=== PATIENT | female | born 1945 | race Caucasian/White ===

== ENCOUNTER 2020-05-21 14:30 | Inpatient (IN) | payer MEDICARE, SELFPAY ==
[2020-05-21] VITALS (8 sets, daily range): BP systolic 108–179; BP diastolic 66–95; PULSE 77–89; RESP 14–22; TEMP 36.9–37.1; O2SAT 93–97; BMI 21.6
--- NOTE | 2020-05-21 | CT_ITS ---
EXAMINATION: CT ABDOMEN AND PELVIS WITHOUT CONTRAST CLINICAL INFORMATION: Abdominal pain with history of recent small bowel obstruction. COMPARISON: CT abdomen and pelvis 05/06/2020. TECHNIQUE: Multidetector volumetric imaging was performed from the superior aspect of the liver through the pubic symphysis. Sagittal and coronal reformatted images were obtained on the technologist's workstation. This CT examination was performed using dose optimization techniques as appropriate, variously including the following: *Automated exposure control. *Adjustment of mA and/or kV according to patient size (this includes techniques or standardized protocols for targeted exams where dose is matched to indication/reason for exam; i.e. extremities or head). *Use of iterative reconstruction technique. DLP: 376 mGy-cm FINDINGS: LUNG BASES: Again seen are changes of emphysema at the lung bases. Extensive coronary calcifications are present. LIVER, GALLBLADDER, AND BILIARY TREE: The liver is normal in size, shape, and attenuation. No focal hepatic lesion or biliary ductal dilatation is present. The gallbladder is surgically absent. PANCREAS: Unremarkable. SPLEEN: Unremarkable. ADRENAL GLANDS: Again noted is a 2.0 x 1.7 cm left adrenal nodule, unchanged. KIDNEYS AND URETERS: Again seen are grossly abnormal kidneys with multiple renal cysts which appear to replace the renal parenchyma. Some hyperattenuating cysts are present at the lower poles of the kidneys. Some are complicated with calcifications. Appearances are unchanged when compared to the prior study. No hydronephrosis. BLADDER: Again seen is the right-sided bladder mass which now measures 2.0 cm (previously 1.8 cm). GASTROINTESTINAL TRACT: Patient is status post right hemicolectomy. An additional small bowel to small bowel suture line is noted in the right lower quadrant. The small and large bowel are otherwise unremarkable. There is no evidence of bowel obstruction. ABDOMINAL WALL: No significant hernia is appreciated. LYMPH NODES: No retroperitoneal lymphadenopathy. VASCULAR: Extensive calcific atherosclerotic change is present in the aorta/iliofemoral vessels with mild ectasia of the infrarenal aorta with maximal dimension of 2.3 cm. PELVIC VISCERA: Status post hysterectomy. An abnormal adnexal mass or free intraperitoneal fluid is not seen. OSSEOUS STRUCTURES: Marked degenerative changes in the lumbosacral spine from L3 through S1. No bony destructive lesions seen. IMPRESSION: 1. No evidence of small bowel obstruction. 2. No interval change in left adrenal gland mass. 3. Right-sided bladder mass appears slightly larger but this may be due to technique. 4. Innumerable renal cysts, some complicated-unchanged. 5. Other incidental findings as described above.
--- NOTE | 2020-05-21 | ECG_ITS ---
Test Reason : VOMITTING Blood Pressure : / mmHG Vent. Rate : 086 BPM Atrial Rate : 086 BPM P-R Int : 146 ms QRS Dur : 090 ms QT Int : 414 ms P-R-T Axes : 028 -02 025 degrees QTc Int : 495 ms Normal sinus rhythm Prolonged QT Abnormal ECG When compared with ECG of 05-MAY-2020 22:53, Premature atrial complexes are no longer Present Heart rate has decreased Referred By: Maribell Greer Electronically Signed By:ROGERS ELAM
--- NOTE | 2020-05-21 15:04 | ED_ITS ---
HPI - Abdominal Pain General Chief Complaint: Abdominal Pain <LORENZA Warren - Last Filed: 05/21/20 20:29> Stated Complaint: ABD PAIN <LORENZA Warren - Last Filed: 05/21/20 20:29> Time Seen by Provider: 05/21/20 14:51 <LORENZA Warren - Last Filed: 05/21/20 20:29> Source: patient <LORENZA Warren - Last Filed: 05/21/20 20:29> Mode of arrival: ambulatory <LORENZA Warren - Last Filed: 05/21/20 20:29> Limitations: no limitations <LORENZA Warren Last Filed: 05/21/20 20:29> History of Present Illness HPI narrative: 78 yo female with history of ESRD on HD M/W/F, COPD, DI, HTN, PE, hx SBO, PAF, bipolar, breast cancer, with recent admission here for MSSA bacteremia 2/2 line infection (on IV Kefzol until 06/05) presenting with abdominal pain and vomiting for the last 2 days. She also reports some muddy/orange diarrhea since Friday. She had her regular HD session Friday and vomiting started shortly after. She is concerned she may have another bowel obstruction. She denies fever, chills, BRBPR. <LORENZA Warren - Last Filed: 05/21/20 20:29> Related Data Allergies/Adverse Reactions: Allergies Allergy/AdvReac Type Severity Reaction Status Date / Time aspirin Allergy Unknown RASH Unverified 05/04/20 16:04 benztropine Allergy Unknown RASH Unverified 05/04/20 16:04 ibuprofen Allergy Unknown Verified 02/15/20 00:00 NSAIDS (Non-Steroidal Allergy Unknown RASH Unverified 05/04/20 16:04 Anti-Inflamma ziprasidone Allergy Unknown UNKNOWN Unverified 05/04/20 16:04 From COGENTIN Allergy Unknown UNKNOWN Uncoded 05/04/20 16:04 paper tape Allergy Unknown Uncoded 02/15/20 00:00 Plastic tape Allergy Unknown Uncoded 03/21/20 00:00 TAPE,PAPER Allergy Unknown BRUISING Uncoded 05/04/20 16:04 <LORENZA Warren Last Filed: 05/21/20 20:29> Review of Systems Review of Systems Constitutional: No Fever, No Chills ENT/Mouth: No sore throat, No Rhinorrhea, No Swallowing Difficulty Eyes: No Eye Pain, No Swelling, No Redness Cardiovascular: No Chest Pain, No SOB, No Orthopnea, No Edema Respiratory: No Cough, No Sputum, No Wheezing Gastrointestinal: + Nausea, + Vomiting, + Diarrhea, + abdominal Pain, No Hematochezia, No Melena Genitourinary: No Dysuria, No Urinary Frequency, No Hematuria Musculoskeletal: No joint pain, + Myalgias Skin: No Skin Lesions, No rash Neuro: + Weakness, No Numbness, No Dizziness, No Headache Psych: No Anxiety/Panic, No Depression Heme/Lymph: No Bruising, No Lymphadenopathy Endocrine: No Polyuria, No Polydipsia All other 10 point ROS are negative. <LORENZA Warren - Last Filed: 05/21/20 20:29> Physical Exam Vital Signs and I&O and Narrative: Vital Signs and I&O: Vital Signs Temp 98.7 F 05/21/20 15:01 Pulse 83 05/21/20 19:04 Resp 14 05/21/20 19:04 BP 151/87 H 05/21/20 19:04 Pulse Ox 97 05/21/20 19:04 Intake & Output 05/21/20 05/21/20 05/22/20 06:59 18:59 06:59 Intake Total 1050.25 / 1050.25 Balance 1050.25 / 1050.25 Weight 55.338 kg Intake: Intake, IV Amoun t 1050.25 / 1050.25 Promethazine H CL 6.25 mg In 0.9 50.25 / 50.25 % Sodium Chlor kush 50 ml @ 201 mls/hr IV ONCE ONE Rx#: [id number] 0.9 % Sodium C hloride 1,000 ml 1000 / 1000 @ 999 mls/hr I VCONT .Q1H1M HERNESTO Rx#:[id number] Body Mass Index 21.6 Appearance: Alert. Oriented X3. No acute distress. Eyes: Pupils equal, round and reactive to light. ENT: Pharynx normal. Neck: Normal inspection. Neck supple. CVS: Normal heart rate and rhythm. Pulses normal. Respiratory: No respiratory distress. Breath sounds normal. Abdomen: Soft with diffuse tender, mostly on left side +BS x4, high pitched Skin: Skin warm and dry. Decreased skin turgor. No rashes. Ecchymosis on left hand/arm Extremities: No lower extremity edema. Neuro: Oriented X 3. No motor deficit. No sensory deficit. <LORENZA Warren - Last Filed: 05/21/20 20:29> Vital Signs and I&O: Vital Signs Temp 98.7 F 05/21/20 15:01 Pulse 83 05/21/20 19:04 Resp 14 05/21/20 19:04 BP 151/87 H 05/21/20 19:04 Pulse Ox 97 05/21/20 19:04 Intake & Output 05/21/20 05/21/20 05/22/20 06:59 18:59 06:59 Intake Total 1050.25 / 1050.25 Balance 1050.25 / 1050.25 Weight 55.338 kg Intake: Intake, IV Amoun t 1050.25 / 1050.25 Promethazine H CL 6.25 mg In 0.9 50.25 / 50.25 % Sodium Chlor kush 50 ml @ 201 mls/hr IV ONCE ONE Rx#: [id number] 0.9 % Sodium C hloride 1,000 ml 1000 / 1000 @ 999 mls/hr I VCONT .Q1H1M HERNESTO Rx#:[id number] Body Mass Index 21.6 <Ever Quispe DO - Last Filed: 05/21/20 20:42> Course Course Hospital Course: concern for SBO vs C diff colitis. labs and CT scan ordered - IV zofran ordered for now. <LORENZA Warren - Last Filed: 05/21/20 20:29> Reevaluation(s) Reevaluation #1: CT scan showed no SBO or colitis. She continues to be unable to tolerate PO. She is reporting continued nausea and is dry heaving with any PO. 2 doses of anti-emetics and morphine given. Spoke with Hospitalist about admission. C diff result is positive (she has a history of it in 2019) - will start PO vanco and flagyl. Plan to admit. <LORENZA Warren - Last Filed: 05/21/20 20:29> Time: 18:04 <LORENZA Warren - Last Filed: 05/21/20 20:29> MDM - Abdominal Pain Lab Data Result diagrams: : 05/21/20 16:10 05/21/20 16:10 <LORENZA Warren - Last Filed: 05/21/20 20:29> Labs: Lab Results 05/21/20 05/21/20 05/21/20 Range/Units 16:10 16:10 16:10 WBC 13.1 H (4.8-10.8) X10*3/uL RBC 3.49 L (4.20-5.50) X10*6/uL Hgb 10.8 L (12.0-16.0) g/dl Hct 35.1 L (37-47) % MCV 100.6 H (80-98) fL MCH 30.9 (27.0-33.0) pg MCHC 30.8 L (31.0-35.0) g/dl RDW 17.2 H (11.0-16.0) % Plt Count 383 (160-400) X10*3/uL MPV 9.6 (9.4-12.3) fL Immature Gran % (Auto) 0.5 H (0.0-0.4) % Neut % (Auto) 70.9 (45-73) % Lymph % (Auto) 14.5 L (20-40) % Mcminn % (Auto) 10.3 (2-11) % Eos % (Auto) 3.0 (0-4) % Baso % (Auto) 0.8 (0-2) % Neut # (Auto) 9.3 H (2.0-8.3) X10*3/uL Lymph # (Auto) 1.9 (1.2-4.9) X10*3/uL Mcminn # (Auto) 1.4 H (0.1-1.2) X10*3/uL Eos # (Auto) 0.4 (0.0-0.4) X10*3/uL Baso # (Auto) 0.1 (0.0-0.2) X10*3/uL Abs Immat Gran (auto) 0.07 H (0.00-0.03) X10*3/uL Absolute Nucleated RBC 0.000 (0.0-0.012) X10*3/uL Nucleated RBC % (auto) 0.0 (0.0-0.2) /100WBC Sodium 142 (135-145) mmol/L Potassium 4.1 (3.3-5.1) mmol/l Chloride 102 (96-108) mmol/L Carbon Dioxide 26 (22-29) mmol/L Anion Gap 18 (12-20) BUN 33 H (9-16) mg/dL Creatinine 5.12 H* (0.5-1.4) mg/dL Estim Creat Clear Calc 8.2 Estimated GFR 8 Random Glucose 80 (60-115) mg/dL Lactic Acid 1.0 (0.5-2.0) mmol/L Calcium 10.4 H (8.4-10.2) mg/dL Total Bilirubin 0.4 (0.0-1.0) mg/dL Direct Bilirubin 0.2 (0.0-0.5) mg/dL AST 11 (5-31) U/L ALT < 6 (0-31) U/L Alkaline Phosphatase 92 (39-117) U/L Total Protein 6.5 (6.5-8.0) g/dL Albumin 3.4 L (3.5-5.0) g/dL Lipase 54 (8-78) U/L C. difficile Toxin A&B (Negative) C. difficile Antigen (Negative) C. difficile Interpret 05/21/20 Range/Units 18:27 WBC (4.8-10.8) X10*3/uL RBC (4.20-5.50) X10*6/uL Hgb (12.0-16.0) g/dl Hct (37-47) % MCV (80-98) fL MCH (27.0-33.0) pg MCHC (31.0-35.0) g/dl RDW (11.0-16.0) % Plt Count (160-400) X10*3/uL MPV (9.4-12.3) fL Immature Gran % (Auto) (0.0-0.4) % Neut % (Auto) (45-73) % Lymph % (Auto) (20-40) % Mcminn % (Auto) (2-11) % Eos % (Auto) (0-4) % Baso % (Auto) (0-2) % Neut # (Auto) (2.0-8.3) X10*3/uL Lymph # (Auto) (1.2-4.9) X10*3/uL Mcminn # (Auto) (0.1-1.2) X10*3/uL Eos # (Auto) (0.0-0.4) X10*3/uL Baso # (Auto) (0.0-0.2) X10*3/uL Abs Immat Gran (auto) (0.00-0.03) X10*3/uL Absolute Nucleated RBC (0.0-0.012) X10*3/uL Nucleated RBC % (auto) (0.0-0.2) /100WBC Sodium (135-145) mmol/L Potassium (3.3-5.1) mmol/l Chloride (96-108) mmol/L Carbon Dioxide (22-29) mmol/L Anion Gap (12-20) BUN (9-16) mg/dL Creatinine (0.5-1.4) mg/dL Estim Creat Clear Calc Estimated GFR Random Glucose (60-115) mg/dL Lactic Acid (0.5-2.0) mmol/L Calcium (8.4-10.2) mg/dL Total Bilirubin (0.0-1.0) mg/dL Direct Bilirubin (0.0-0.5) mg/dL AST (5-31) U/L ALT (0-31) U/L Alkaline Phosphatase (39-117) U/L Total Protein (6.5-8.0) g/dL Albumin (3.5-5.0) g/dL Lipase (8-78) U/L C. difficile Toxin A&B Negative (Negative) C. difficile Antigen Positive A (Negative) C. difficile Interpret PCR to be performed <LORENZA Warren - Last Filed: 05/21/20 20:29> Lab Results 05/21/20 05/21/20 05/21/20 Range/Units 16:10 16:10 16:10 WBC 13.1 H (4.8-10.8) X10*3/uL RBC 3.49 L (4.20-5.50) X10*6/uL Hgb 10.8 L (12.0-16.0) g/dl Hct 35.1 L (37-47) % MCV 100.6 H (80-98) fL MCH 30.9 (27.0-33.0) pg MCHC 30.8 L (31.0-35.0) g/dl RDW 17.2 H (11.0-16.0) % Plt Count 383 (160-400) X10*3/uL MPV 9.6 (9.4-12.3) fL Immature Gran % (Auto) 0.5 H (0.0-0.4) % Neut % (Auto) 70.9 (45-73) % Lymph % (Auto) 14.5 L (20-40) % Mcminn % (Auto) 10.3 (2-11) % Eos % (Auto) 3.0 (0-4) % Baso % (Auto) 0.8 (0-2) % Neut # (Auto) 9.3 H (2.0-8.3) X10*3/uL Lymph # (Auto) 1.9 (1.2-4.9) X10*3/uL Mcminn # (Auto) 1.4 H (0.1-1.2) X10*3/uL Eos # (Auto) 0.4 (0.0-0.4) X10*3/uL Baso # (Auto) 0.1 (0.0-0.2) X10*3/uL Abs Immat Gran (auto) 0.07 H (0.00-0.03) X10*3/uL Absolute Nucleated RBC 0.000 (0.0-0.012) X10*3/uL Nucleated RBC % (auto) 0.0 (0.0-0.2) /100WBC Sodium 142 (135-145) mmol/L Potassium 4.1 (3.3-5.1) mmol/l Chloride 102 (96-108) mmol/L Carbon Dioxide 26 (22-29) mmol/L Anion Gap 18 (12-20) BUN 33 H (9-16) mg/dL Creatinine 5.12 H* (0.5-1.4) mg/dL Estim Creat Clear Calc 8.2 Estimated GFR 8 Random Glucose 80 (60-115) mg/dL Lactic Acid 1.0 (0.5-2.0) mmol/L Calcium 10.4 H (8.4-10.2) mg/dL Total Bilirubin 0.4 (0.0-1.0) mg/dL Direct Bilirubin 0.2 (0.0-0.5) mg/dL AST 11 (5-31) U/L ALT < 6 (0-31) U/L Alkaline Phosphatase 92 (39-117) U/L Total Protein 6.5 (6.5-8.0) g/dL Albumin 3.4 L (3.5-5.0) g/dL Lipase 54 (8-78) U/L C. difficile Toxin A&B (Negative) C. difficile Antigen (Negative) C. difficile Interpret 05/21/20 Range/Units 18:27 WBC (4.8-10.8) X10*3/uL RBC (4.20-5.50) X10*6/uL Hgb (12.0-16.0) g/dl Hct (37-47) % MCV (80-98) fL MCH (27.0-33.0) pg MCHC (31.0-35.0) g/dl RDW (11.0-16.0) % Plt Count (160-400) X10*3/uL MPV (9.4-12.3) fL Immature Gran % (Auto) (0.0-0.4) % Neut % (Auto) (45-73) % Lymph % (Auto) (20-40) % Mcminn % (Auto) (2-11) % Eos % (Auto) (0-4) % Baso % (Auto) (0-2) % Neut # (Auto) (2.0-8.3) X10*3/uL Lymph # (Auto) (1.2-4.9) X10*3/uL Mcminn # (Auto) (0.1-1.2) X10*3/uL Eos # (Auto) (0.0-0.4) X10*3/uL Baso # (Auto) (0.0-0.2) X10*3/uL Abs Immat Gran (auto) (0.00-0.03) X10*3/uL Absolute Nucleated RBC (0.0-0.012) X10*3/uL Nucleated RBC % (auto) (0.0-0.2) /100WBC Sodium (135-145) mmol/L Potassium (3.3-5.1) mmol/l Chloride (96-108) mmol/L Carbon Dioxide (22-29) mmol/L Anion Gap (12-20) BUN (9-16) mg/dL Creatinine (0.5-1.4) mg/dL Estim Creat Clear Calc Estimated GFR Random Glucose (60-115) mg/dL Lactic Acid (0.5-2.0) mmol/L Calcium (8.4-10.2) mg/dL Total Bilirubin (0.0-1.0) mg/dL Direct Bilirubin (0.0-0.5) mg/dL AST (5-31) U/L ALT (0-31) U/L Alkaline Phosphatase (39-117) U/L Total Protein (6.5-8.0) g/dL Albumin (3.5-5.0) g/dL Lipase (8-78) U/L C. difficile Toxin A&B Negative (Negative) C. difficile Antigen Positive A (Negative) C. difficile Interpret PCR to be performed <Ever Quispe DO - Last Filed: 05/21/20 20:42> ECG Data Attestation: I personally reviewed and interpreted this ECG as follows: <LORENZA Warren - Last Filed: 05/21/20 20:29> ECG interpretation date: 05/21/20 <LORENZA Warren - Last Filed: 05/21/20 20:29> Pacemaker model: normal sinus rhythm, HR 86 bpm, prolonged QTc 495 ms <LORENZA Warren Last Filed: 05/21/20 20:29> Discharge Plan Discharge Clinical Impression: C. difficile diarrhea Vomiting Qualifiers: Vomiting type: unspecified Vomiting Intractability: intractable Nausea presence: with nausea Qualified Code(s): R11.2 - Nausea with vomiting, unspecified <LORENZA Warren - Last Filed: 05/21/20 20:29> Patient Disposition: Admitted As Inpatient <LORENZA Warren Last Filed: 05/21/20 20:29> [facility] Past Medical History Medical History: Medical History (Updated 05/21/20 @ 20:28 by LORENZA Warren) Bipolar disorder Bowel obstruction Breast cancer COPD (chronic obstructive pulmonary disease) ESRD (end stage renal disease) Hypothyroidism MSSA bacteremia Paroxysmal A-fib Pulmonary emboli SBO (small bowel obstruction) <LORENZA Warren - Last Filed: 05/21/20 20:29> Social History Social History: Social History Alcohol intake: unknown Smoking Status: Former smoker Smoked in Last 30 Days: No Use of substances other than those prescribed or required for medical reasons: No Advance Directives: No Advance Directives Information Provided: Yes <LORENZA Warren - Last Filed: 05/21/20 20:29>
[2020-05-21 16:17] LABS: MANUAL DIFF FLAG NO
[2020-05-21 16:23] LABS: Basophils Absolute Auto 0.1 X10*3/uL (0.0-0.2); Basophils Percent Auto 0.8 % (0-2); Eosinophils Absolute Auto 0.4 X10*3/uL (0.0-0.4); Hematocrit 35.1 % (37-47); Hemoglobin 10.8 g/dl (12.0-16.0); Imm Gran Abs Auto 0.07 X10*3/uL (0.00-0.03); Imm Gran Pct Auto 0.5 % (0.0-0.4); Lymphocytes Absolute Auto 1.9 X10*3/uL (1.2-4.9); Lymphocytes Percent Auto 14.5 % (20-40); Mean Corpuscular HGB Conc 30.8 g/dl (31.0-35.0); Mean Corpuscular Hemoglobin 30.9 pg (27.0-33.0); Mean Corpuscular Volume 100.6 fL (80-98); Mean Platelet Volume 9.6 fL (9.4-12.3); Monocytes Absolute Auto 1.4 X10*3/uL (0.1-1.2); Monocytes Percent Auto 10.3 % (2-11); Neutrophils Absolute Auto 9.3 X10*3/uL (2.0-8.3); Neutrophils Percent Auto 70.9 % (45-73); Platelet Count 383 X10*3/uL (160-400); Red Blood Count 3.49 X10*6/uL (4.20-5.50); Red Cell Distribution Width 17.2 % (11.0-16.0); White Blood Count 13.1 X10*3/uL (4.8-10.8)
[2020-05-21] MEDS: 0.9 % Sodium Chloride 1,000 ML 999 ML IVCONT (16:37)
[2020-05-21] MEDS: ondansetron HCL 4 MG/2 ML VIAL IVPUSH (16:38)
[2020-05-21 17:17] LABS: Alanine Aminotransferase < 6 U/L (0-31); Albumin Level 3.4 g/dL (3.5-5.0); Alkaline Phosphatase 92 U/L (39-117); Anion Gap 18 (12-20); Aspartate Amino Transferase 11 U/L (5-31); Bilirubin Direct 0.2 mg/dL (0.0-0.5); Bilirubin Total 0.4 mg/dL (0.0-1.0); Blood Urea Nitrogen 33 mg/dL (9-16); Calcium 10.4 mg/dL (8.4-10.2); Carbon Dioxide 26 mmol/L (22-29); Chloride 102 mmol/L (96-108); Creatinine Clr Calc Pharmacy 8.2; Estimated Glomerular Filt Rate 8; Glucose Random 80 mg/dL (60-115); Lipase 54 U/L (8-78); Potassium 4.1 mmol/l (3.3-5.1); Sodium 142 mmol/L (135-145); Total Protein 6.5 g/dL (6.5-8.0)
[2020-05-21 19:27] LABS: CDIFF Ag Positive (Negative); CDIFF Internal ctrl Dots and bkg OK (V); CDiff Toxin Negative (Negative)
--- NOTE | 2020-05-21 19:29 | PC.NURSE ---
SPOKE WITH PT'S FOR UPDATE. ASSUMED CARE OF PT. PT RESTING IN STRETCHER. VS OBTAINED. PT ON MONITOR HR 80. PT C/O ABD PAIN AND NAUSEA. PT GETTING ADMITTED AT THIS TIME. PT AWAITING FOR HOSPITALIST'S ORDERS.
[2020-05-21] MEDS: metroNIDAZOLE/NS 500 MG/100 ML PIGGYBACK 100 MG IV (19:51)
--- NOTE | 2020-05-21 20:22 | P.HPIM_ITS ---
History of Present Illness Date of Service: 05/21/20 Chief Complaint: Nausea/Vomiting 74 y/ female with and extensive PMHx who presented from home due to Nausea and Vomiting since last friday (3 days ago). Patient was recently discharged from our service, admitted due to MSSA Bacteremia secondary to HD catheter infection and discharged on kefzol until 06/05. Patient now presented with nausea, vomiting, diarrhea and mild abdominal pain since last friday which she describes as sharp pain in the lower abdomen, reports similar episodes in the past. Has a significant hx of SBO as well in the past. On presentation vitals are stable. No evidence of fever. WBC of 13.1 with Hgb of 10.8. Electrolytes WNL. Ca of 10.4. C diff positive antigen / PCR pending. CT abdomen shows no evidence of SBO. There is evidence of a bladder mass and left adrenal mass which was present on previous imaging in the past as well as renal cysts. Patient was given per ED Oral Vancomycin and Flagyl. Decision for admission given. Patient was seen and evaluated at the bedside, laying down in bed in no acute distress. Reports on and off nausea but has not vomited since has been in the ER. Physical exam is negative for any tenderness on exam, massess or distention. PMHX: ESRD on dialysis MWF, Bipolar, COPD, DI, HTN, HPTH, hypothyroidism, breast cancer, PE, paroxysmal afib PSx: fistula for HD Toxic habits: No hx of alcohol abuse, smoking or IVDA or smoking Review of Systems Review of Systems: Yes all other systems are reviewed and are negative Constitutional: Constitutional: Reports no additional constitutional complaints Eyes: Eyes: Reports no additional eye complaints Cardiovascular: Cardiovascular: Reports no additional cardiovascular complaints Respiratory: Respiratory: Reports no additional respiratory complaints Gastrointestinal: Gastrointestinal: Reports abdominal pain, Reports change in bowel habits, Reports change in stool character, Reports diarrhea, Reports nausea and Reports vomiting Genitourinary: Genitourinary: Reports no additional female genitourinary complaints Musculoskeletal: Musculoskeletal: Reports no additional musculoskeletal complaints Psychiatric: Psychiatric: Reports no additional psychiatric complaints [facility] Medical History (Updated 05/21/20 @ 21:56 by Camille Hale MD) Bipolar disorder Bowel obstruction Breast cancer COPD (chronic obstructive pulmonary disease) ESRD (end stage renal disease) Hypothyroidism MSSA bacteremia Paroxysmal A-fib Pulmonary emboli SBO (small bowel obstruction) Cognitive capacity: AAOx Functional capacity: independent ambulation Family history: reviewed and not pertinent Social History Alcohol intake: unknown Smoking Status: Former smoker Smoked in Last 30 Days: No Use of substances other than those prescribed or required for medical reasons: No Advance Directives: No Advance Directives Information Provided: Yes Meds Allergies Allergy/AdvReac Type Severity Reaction Status Date / Time aspirin Allergy Unknown RASH Unverified 05/04/20 16:04 benztropine Allergy Unknown RASH Unverified 05/04/20 16:04 ibuprofen Allergy Unknown Verified 02/15/20 00:00 NSAIDS (Non-Steroidal Allergy Unknown RASH Unverified 05/04/20 16:04 Anti-Inflamma ziprasidone Allergy Unknown UNKNOWN Unverified 05/04/20 16:04 From COGENTIN Allergy Unknown UNKNOWN Uncoded 05/04/20 16:04 paper tape Allergy Unknown Uncoded 02/15/20 00:00 Plastic tape Allergy Unknown Uncoded 03/21/20 00:00 TAPE,PAPER Allergy Unknown BRUISING Uncoded 05/04/20 16:04 Home Medications Medication Instructions Recorded Confirmed Type apixaban [Eliquis] 1 tab PO BID 05/21/20 05/21/20 History clonazepam 2.5 tab PO BEDTIME 05/21/20 05/21/20 History clozapine 3 tab PO BEDTIME 05/21/20 05/21/20 History dronedarone [Multaq] 1 tab PO BID 05/21/20 05/21/20 History hydroxyzine pamoate 1 cap PO BEDTIME PRN 05/21/20 05/21/20 History lamotrigine 2 tab PO BID 05/21/20 05/21/20 History levothyroxine 1 tab PO QAM 05/21/20 05/21/20 History midodrine 1 tab PO TID 05/21/20 05/21/20 History omeprazole 1 cap PO BID 05/21/20 05/21/20 History sevelamer carbonate 1 tab PO TID 05/21/20 05/21/20 History Physical Exam Vital Signs and Narrative: Vital Signs: Last Vital Signs Temp 98.7 F 05/21/20 15:01 Pulse 83 05/21/20 19:04 Resp 14 05/21/20 19:04 BP 151/87 H 05/21/20 19:04 Pulse Ox 97 05/21/20 19:04 Body Mass Index 21.6 Const: General: cooperative and no acute distress Orientation/consciousness: patient oriented x3 HENMT: Head: Yes normal to inspection Ears: hearing grossly normal bilaterally General nose exam: Normal external nose present Face and si nus: Yes normal facial exam Eyes: General: appearance normal, both eyes and all related structures Neck: Yes normal visual inspection and Yes no JVD Chest: Chest palpation & inspection: normal inspection of the chest and normal palpation of entire chest wall Resp: Effort & Inspection: normal respiratory effort Cardio: Jugular venous distension: no JVD Rate: regular rate GI: Inspection: Yes normal to inspection Palpation (GI): Tenderness to palpation present (GI) (No evidence of tenderness) Skin: General skin exam: no rashes or lesions noted Neuro: General: patient oriented x3 Extrem: General: Yes other (dry sking in bilateral LE ) Psych: Mental Status: mental status grossly normal Results Labs Labs: Laboratory Tests 05/21/20 05/21/20 05/21/20 16:10 16:10 16:10 WBC 13.1 H RBC 3.49 L Hgb 10.8 L Hct 35.1 L MCV 100.6 H MCH 30.9 MCHC 30.8 L RDW 17.2 H Plt Count 383 MPV 9.6 Immature Gran % (Auto) 0.5 H Neut % (Auto) 70.9 Lymph % (Auto) 14.5 L [place] % (Auto) 10.3 Eos % (Auto) 3.0 Baso % (Auto) 0.8 Neut # (Auto) 9.3 H Lymph # (Auto) 1.9 [place] # (Auto) 1.4 H Eos # (Auto) 0.4 Baso # (Auto) 0.1 Abs Immat Gran (auto) 0.07 H Absolute Nucleated RBC 0.000 Nucleated RBC % (auto) 0.0 Sodium 142 Potassium 4.1 Chloride 102 Carbon Dioxide 26 Anion Gap 18 BUN 33 H Creatinine 5.12 H* Estim Creat Clear Calc 8.2 Estimated GFR 8 Random Glucose 80 Lactic Acid 1.0 Calcium 10.4 H Total Bilirubin 0.4 Direct Bilirubin 0.2 AST 11 ALT < 6 Alkaline Phosphatase 92 Total Protein 6.5 Albumin 3.4 L Lipase 54 C. difficile Toxin A&B C. difficile Antigen C. difficile Interpret 05/21/20 18:27 WBC RBC Hgb Hct MCV MCH MCHC RDW Plt Count MPV Immature Gran % (Auto) Neut % (Auto) Lymph % (Auto) [place] % (Auto) Eos % (Auto) Baso % (Auto) Neut # (Auto) Lymph # (Auto) [place] # (Auto) Eos # (Auto) Baso # (Auto) Abs Immat Gran (auto) Absolute Nucleated RBC Nucleated RBC % (auto) Sodium Potassium Chloride Carbon Dioxide Anion Gap BUN Creatinine Estim Creat Clear Calc Estimated GFR Random Glucose Lactic Acid Calcium Total Bilirubin Direct Bilirubin AST ALT Alkaline Phosphatase Total Protein Albumin Lipase C. difficile Toxin A&B Negative C. difficile Antigen Positive A C. difficile Interpret PCR to be performed Assessment and Plan (1) Vomiting: Qualifiers: Nausea presence: with nausea Vomiting Intractability: intractable Vomiting type: unspecified Qualified Code(s): R11.2 - Nausea with vomiting, uns pecified Status: Acute Hemodynamically stable at present No other episodes of vomiting in the ED NPO for now IV fluids Advance diet as tolerated No evidence of SBO on imaging GI consult in the am (2) C. difficile diarrhea: Status: Acute Antigen positive but toxin negative Will hold off on antbx at present Follow up PCR. No evidence of diarrhea while in the ED (3) MSSA bacteremia: Status: Acute Cefazolin to be given as recommended per ID 2g after HD ID consult for further recommendations at this point (4) ESRD (end stage renal disease): Status: Acute continue with HD MWF as scheduled Nephrology consult for HD (5) COPD (chronic obstructive pulmonary disease): Status: Acute Stable Continue with nebulizer as ordered (6) Bipolar disorder: Status: Acute continue with clozapine home dose (7) Paroxysmal A-fib: Status: Acute stable continue with Eliquis home dose continue with multaq for rate control home dose (8) Hypothyroidism: Status: Acute stable continue with current levothyroxine home dose (9) Seizure: Status: Acute continue with lamotrigine home dose (10) GERD (gastroesophageal reflux disease): Status: Acute stable continue with PPI home dose
--- NOTE | 2020-05-21 21:09 | PC.NURSE ---
PT IS A DIFFICULT STICK, HL TO LEFT FA INFILTRATED. MD AWARE. MD IN ROOM FOR ATTEMPT FOR EJ. UNSUCCESSFUL.
[2020-05-22] VITALS (7 sets, daily range): BP systolic 104–152; BP diastolic 55–82; PULSE 83–97; RESP 15–20; TEMP 36.2–36.6; O2SAT 94–96
[2020-05-22] MEDS: 0.9 % Sodium Chloride 1,000 ML 75 ML IVCONT ×2 (01:02→12:55)
[2020-05-22] MEDS: 0.9 % Sodium Chloride Flush 3 ML SYRINGE 2 ML IVFLUSH (01:06)
[2020-05-22] MEDS: Metoclopramide HCl 10 MG/2 ML VIAL 5 MG IVPUSH (01:29)
[2020-05-22] MEDS: LORazepam 2 MG/ML VIAL 0.5 MG IVPUSH (01:29)
[2020-05-22] MEDS: Morphine Sulfate 2 MG/ML CARTRIDGE 1 MG IVPUSH (01:30)
[2020-05-22] MEDS: cloZAPine 100 MG TABLET 300 MG PO (01:34)
--- NOTE | 2020-05-22 03:37 | MHC.PIE ---
P; pt arrived from ed anxious and c/o pain and nausea. pt asking for her night time psych meds klonopin, Lamotrigine and clozaril. pt reports nausea meds given in ed did nothing for nausea ( zofran and phenergan) I; dr zhao notified; new order ativan 0.5 iv now, reglan 5mg iv now, clozaril 300 mg po now E; pt asleep in bed, no sign of pain noted, will cont to monitor
[2020-05-22] MEDS: Omeprazole 40 MG CAPSULE.DR PO (06:20)
[2020-05-22] MEDS: Levothyroxine Sodium 125 MCG TABLET PO (06:20)
[2020-05-22 06:41] LABS: MANUAL DIFF FLAG SCAN; Mean Corpuscular Volume 101.1 fL (80-98); PLT CLUMP 1; SCAN SMEAR FLAG 1
[2020-05-22 06:43] LABS: Basophils Absolute Auto 0.1 X10*3/uL (0.0-0.2); Basophils Percent Auto 0.6 % (0-2); Eosinophils Absolute Auto 0.3 X10*3/uL (0.0-0.4); Eosinophils Percent Auto 3.7 % (0-4); Hematocrit 37.5 % (37-47); Hemoglobin 11.3 g/dl (12.0-16.0); Imm Gran Abs Auto 0.08 X10*3/uL (0.00-0.03); Lymphocytes Absolute Auto 1.5 X10*3/uL (1.2-4.9); Mean Corpuscular HGB Conc 30.1 g/dl (31.0-35.0); Mean Corpuscular Hemoglobin 30.5 pg (27.0-33.0); Monocytes Absolute Auto 0.8 X10*3/uL (0.1-1.2); Monocytes Percent Auto 9.7 % (2-11); Neutrophils Absolute Auto 5.1 X10*3/uL (2.0-8.3); Red Blood Count 3.71 X10*6/uL (4.20-5.50); Red Cell Distribution Width 17.1 % (11.0-16.0); White Blood Count 7.8 X10*3/uL (4.8-10.8)
[2020-05-22 07:48] LABS: Platelet Count 236 X10*3/uL (160-400)
[2020-05-22 07:49] LABS: SLIDE REVIEW VERIFIED
[2020-05-22 07:54] LABS: Alanine Aminotransferase < 6 U/L (0-31); Albumin Level 3.1 g/dL (3.5-5.0); Alkaline Phosphatase 87 U/L (39-117); Anion Gap 23 (12-20); Aspartate Amino Transferase 15 U/L (5-31); Bilirubin Total 0.4 mg/dL (0.0-1.0); Blood Urea Nitrogen 39 mg/dL (9-16); Calcium 9.8 mg/dL (8.4-10.2); Carbon Dioxide 19 mmol/L (22-29); Chloride 106 mmol/L (96-108); Creatinine Clr Calc Pharmacy 7.4; Estimated Glomerular Filt Rate 7; Glucose Random 71 mg/dL (60-115); Potassium 4.7 mmol/l (3.3-5.1); Sodium 143 mmol/L (135-145); Total Protein 6.2 g/dL (6.5-8.0)
--- NOTE | 2020-05-22 10:08 | P.PNIM_ITS ---
Subjective Subjective Date of Service: 05/22/20 Interval History: Seen and examined this AM denies any current issues will need to d/w the re: her HPI Physical Exam Vital Signs and I&O and Narrative: Vital Signs and I&O: Vital Signs Temp 97.7 F 05/22/20 07:51 Pulse 95 05/22/20 07:51 Resp 15 05/22/20 07:51 BP 110/62 05/22/20 07:51 Pulse Ox 94 05/22/20 07:51 Intake & Output 05/21/20 05/22/20 05/22/20 18:59 06:59 18:59 Intake Total 1050.25 / 1210.25 160 / 1210.25 Balance 1050.25 / 1210.25 160 / 1210.25 Weight 55.338 kg Intake: Intake, Oral Monty unt 60 / 60 Intake, IV Amoun t 1050.25 / 1150.25 100 / 1150.25 Promethazine H CL 6.25 mg In 0.9 50.25 / 50.25 % Sodium Chlor kush 50 ml @ 201 mls/hr IV ONCE ONE Rx#: [id number] metroNIDAZOLE/ NS 500 mg In 100 100 / 100 ml @ 100 mls/h r IV ONCE ONE Rx# :[id number] 0.9 % Sodium C hloride 1,000 ml 1000 / 1000 @ 999 mls/hr I VCONT .Q1H1M [facility] Rx#:[id number] Other: Urine Bedpan Urine Color Yellow Body Mass Index 21.6 Const: General: no acute distress Resp: Effort & Inspection: normal respiratory effort Auscultation: clear to auscultation bilaterally Objective Data Current Medications Generic Name Dose Route Start Last Admin Trade Name Freq PRN Reason Stop Dose Admin Acetaminophen 650 mg 05/22/20 09:13 Acetaminophen 325 Mg Tablet PO BID PRN Pain (Scale Score 1-3) Apixaban 2.5 mg 05/22/20 09:00 Apixaban 2.5 Mg Tablet PO BID [facility] Clonazepam 1.5 mg 05/22/20 21:00 Clonazepam 0.5 Mg Tablet PO BEDTIME [facility] Clozapine 50 mg 05/22/20 21:00 Clozapine 25 Mg Tablet PO BEDTIME [facility] Dronedarone 400 mg 05/22/20 09:00 Dronedarone Hcl 400 Mg Tablet PO BID [facility] Fluticasone/Vilanterol 1 puff 05/23/20 08:00 Fluticasone/Vilanterol 200/25 Blst.W.Dev INHALE RDAILY [facility] Hydroxyzine HCl 50 mg 05/22/20 09:51 Hydroxyzine Hcl 50 Mg Tablet PO BEDTIME PRN Sleep Sodium Chloride 1,000 mls @ 75 mls/hr 05/22/20 00:14 05/22/20 01:02 Ns IVCONT 75 mls/hr .[id number] [facility] Administration Cefazolin Sodium/Dextrose 2 gm in 50 mls @ 100 mls/hr 05/22/20 16:45 Ancef IV MOWEFR@1645 [facility] Lamotrigine 300 mg 05/22/20 21:00 Lamotrigine 100 Mg Tablet PO BEDTIME [facility] Levothyroxine Sodium 125 mcg 05/22/20 06:30 05/22/20 06:20 Levothyroxine Sodium 125 Mcg Tablet PO 125 mcg DAILY@0630 [facility] Administration Midodrine 5 mg 05/22/20 09:00 Midodrine Hcl 5 Mg Tablet PO TID [facility] Omeprazole 40 mg 05/22/20 06:30 05/22/20 06:20 Omeprazole 40 Mg Capsule.Dr PO 40 mg BID@0630,1630 [facility] Administration Sevelamer HCl 800 mg 05/22/20 15:00 Sevelamer Hcl 800 Mg Tablet PO TID [facility] Sodium Chloride 2 ml 05/22/20 00:14 05/22/20 01:06 0.9 % Sodium Chloride Flush 3 Ml Syringe IVFLUSH 2 ml QSHIFT [facility] Administration Labs CBC & Chem 7: 05/22/20 06:09 05/22/20 06:09 Labs: Laboratory Results - last 24 hr 05/21/20 05/21/20 05/21/20 16:10 16:10 16:10 MCV 100.6 H MCH 30.9 MCHC 30.8 L RDW 17.2 H Plt Count 383 MPV 9.6 Immature Gran % (Auto) 0.5 H Neut % (Auto) 70.9 Lymph % (Auto) 14.5 L [place] % (Auto) 10.3 Eos % (Auto) 3.0 Baso % (Auto) 0.8 Neut # (Auto) 9.3 H Lymph # (Auto) 1.9 [place] # (Auto) 1.4 H Eos # (Auto) 0.4 Baso # (Auto) 0.1 Abs Immat Gran (auto) 0.07 H Absolute Nucleated RBC 0.000 Nucleated RBC % (auto) 0.0 Smear Tech's Comments Anion Gap 18 Estim Creat Clear Calc 8.2 Estimated GFR 8 Random Glucose 80 Lactic Acid 1.0 Calcium 10.4 H Total Bilirubin 0.4 Direct Bilirubin 0.2 AST 11 ALT < 6 Alkaline Phosphatase 92 Total Protein 6.5 Albumin 3.4 L Lipase 54 C. difficile Toxin A&B C. difficile Antigen C. difficile Interpret 05/21/20 05/22/20 05/22/20 18:27 06:09 06:09 MCV 101.1 H MCH 30.5 MCHC 30.1 L RDW 17.1 H Plt Count 236 D MPV Immature Gran % (Auto) 1.0 H Neut % (Auto) 66.0 Lymph % (Auto) 19.0 L [place] % (Auto) 9.7 Eos % (Auto) 3.7 Baso % (Auto) 0.6 Neut # (Auto) 5.1 Lymph # (Auto) 1.5 [place] # (Auto) 0.8 Eos # (Auto) 0.3 Baso # (Auto) 0.1 Abs Immat Gran (auto) 0.08 H Absolute Nucleated RBC 0.000 Nucleated RBC % (auto) 0.0 Smear Tech's Comments VERIFIED Anion Gap 23 H Estim Creat Clear Calc 7.4 Estimated GFR 7 Random Glucose 71 Lactic Acid Calcium 9.8 Total Bilirubin 0.4 Direct Bilirubin AST 15 ALT < 6 Alkaline Phosphatase 87 Total Protein 6.2 L Albumin 3.1 L Lipase C. difficile Toxin A&B Negative C. difficile Antigen Positive A C. difficile Interpret PCR to be performed Progress Note: A&P (1) Vomiting: Status: Acute (2) MSSA bacteremia: Status: Acute (3) Paroxysmal A-fib: Status: Acute (4) ESRD (end stage renal disease): Status: Acute Assessment and Plan: this is a 74-year-old female well known to the hospitalist service who is presenting to the hospital with complaints of nausea and vomiting. She does have a history of recurrent partial / complete small-bowel obstructions which fortunately is not evident on the CT scan. She is admitted for further workup 1. nausea and vomiting Appears to have resolved Will start her on clear liquids and advanced as tolerated 2. ? C. diff colitis Ag positive, tox negative -- PCR pending hold off po vancomcyin for now ID consult 3. Recent MSSA Bacteremia continue Kefzol 2g post dialysis 4. ESRD Nephrology consulted dilaysis on ? MWF 5. PAF ELiquis renally dosed 6. Mood continue her chronic meds -- appropriate dosing changed by pharmacy (to follow [facility] for clozaril) 7. Chronic hypotension on midodrine -- will continue the same Full Code DVT pptx, Aliya
--- NOTE | 2020-05-22 10:12 | PM.CNNEP ---
History of Present Illness Reason for Consult Consult date: 05/22/20 Chief Complaint Chief complaint: ABD PAIN PMFSH Past Medical History Medical History (Updated 05/21/20 @ 21:56 by Camille Hale MD) Bipolar disorder Bowel obstruction Breast cancer COPD (chronic obstructive pulmonary disease) ESRD (end stage renal disease) Hypothyroidism MSSA bacteremia Paroxysmal A-fib Pulmonary emboli SBO (small bowel obstruction) Functional capacity: independent ambulation Family History Family history: reviewed and not pertinent Social History Social History Alcohol intake: unknown Smoking Status: Former smoker Smoked in Last 30 Days: No Use of substances other than those prescribed or required for medical reasons: No Advance Directives: No Advance Directives Information Provided: Yes Meds Allergies Allergy/AdvReac Type Severity Reaction Status Date / Time aspirin Allergy Unknown RASH Unverified 05/04/20 16:04 benztropine Allergy Unknown RASH Unverified 05/04/20 16:04 ibuprofen Allergy Unknown Verified 02/15/20 00:00 NSAIDS (Non-Steroidal Allergy Unknown RASH Unverified 05/04/20 16:04 Anti-Inflamma ziprasidone Allergy Unknown UNKNOWN Unverified 05/04/20 16:04 From COGENTIN Allergy Unknown UNKNOWN Uncoded 05/04/20 16:04 paper tape Allergy Unknown Uncoded 02/15/20 00:00 Plastic tape Allergy Unknown Uncoded 03/21/20 00:00 TAPE,PAPER Allergy Unknown BRUISING Uncoded 05/04/20 16:04 Home Medications Medication Instructions Recorded Confirmed Type apixaban [Eliquis] 2.5 mg PO BID 05/21/20 05/22/20 History clonazepam 1.5 mg PO BEDTIME 05/21/20 05/22/20 History clozapine 50 mg PO BEDTIME 05/21/20 05/22/20 History dronedarone [Multaq] 400 mg PO BID 05/21/20 05/22/20 History hydroxyzine pamoate 50 mg PO BEDTIME PRN 05/21/20 05/22/20 History lamotrigine 300 mg PO BEDTIME 05/21/20 05/22/20 History levothyroxine 125 mcg PO QAM 05/21/20 05/22/20 History midodrine 5 mg PO TID 05/21/20 05/22/20 History omeprazole 40 mg PO BID 05/21/20 05/22/20 History acetaminophen 650 mg PO BID PRN 05/22/20 05/22/20 History fluticasone propion-salmeterol 1 inh INHALATION BID 05/22/20 05/22/20 History [Wixela Inhub] sevelamer carbonate 800 mg PO TID 05/22/20 05/22/20 History Physical Exam Vital Signs and I&O: Vital Signs Temp 97.7 F 05/22/20 07:51 Pulse 95 05/22/20 07:51 Resp 15 05/22/20 07:51 BP 110/62 05/22/20 07:51 Pulse Ox 94 05/22/20 07:51 Intake & Output 05/21/20 05/22/20 05/22/20 18:59 06:59 18:59 Intake Total 1050.25 / 1210.25 160 / 1210.25 Balance 1050.25 / 1210.25 160 / 1210.25 Weight 55.338 kg Intake: Intake, Oral Amount 60 / 60 Intake, IV Amount 1050.25 / 1150.25 100 / 1150.25 Promethazine HCL 6.25 mg In 0.9 50.25 / 50.25 % Sodium Chloride 50 ml @ 201 mls/hr IV ONCE ONE Rx#: [id number] metroNIDAZOLE/NS 500 mg In 100 100 / 100 ml @ 100 mls/hr IV ONCE ONE Rx# :[id number] 0.9 % Sodium Chloride 1,000 ml 1000 / 1000 @ 999 mls/hr IVCONT .Q1H1M [facility] Rx#:[id number] Other: Urine Bedpan Urine Color Yellow Body Mass Index 21.6 Const General: cooperative and no acute distress Orientation/consciousness: patient oriented x3 [facility] Head: Yes normal to inspection Ears: hearing grossly normal bilaterally General nose exam: Normal external nose present Face and sinus: Yes normal facial exam Eyes General: appearance normal, both eyes and all related structures Neck Neck: Yes normal visual inspection and Yes no JVD Chest Chest palpation & inspection: normal inspection of the chest and normal palpation of entire chest wall Resp Effort & Inspection: normal respiratory effort Cardio Jugular venous distension: no JVD Rate: regular rate GI Inspection: Yes normal to inspection Palpation (GI): Tenderness to palpation present (GI) (No evidence of tenderness) Skin General skin exam: no rashes or lesions noted Neuro General: patient oriented x3 Extrem General: Yes other (dry sking in bilateral LE ) Psych Mental Status: mental status grossly normal Results Lab Results Result Diagrams: 05/22/20 06:09 05/22/20 06:09 Lab results: Chemistry 05/21/20 05/22/20 16:10 06:09 Sodium 142 143 Potassium 4.1 4.7 Carbon Dioxide 26 19 L BUN 33 H 39 H Creatinine 5.12 H* 5.68 H* Calcium 10.4 H 9.8 Hematology 05/21/20 05/22/20 16:10 06:09 WBC 13.1 H 7.8 Hgb 10.8 L 11.3 L Plt Count 383 236 D
[2020-05-22] MEDS: Midodrine HCl 5 MG TABLET PO ×2 (10:22→20:57)
[2020-05-22] MEDS: Apixaban 2.5 MG TABLET PO ×2 (10:26→20:57)
[2020-05-22] MEDS: Dronedarone HCl 400 MG TABLET PO ×2 (10:28→21:06)
[2020-05-22 10:34] LABS: CDiff Gene PCR Positive (Negative)
--- NOTE | 2020-05-22 10:44 | PC.NURSE ---
RECEIVED A CALL FROM SEROLOGY CONCERNING POSITIVE C-DIFF, TIGERTEXED DR. JAVIER TO MAKE HIM AWARE OF THE FINDINGS. ALSO LET ESTIVEN THE RN FOR THE PATIENT KNOW THE RESULTS
--- NOTE | 2020-05-22 12:06 | P.CONNP_ITS ---
History of Present Illness Chief Complaint Chief complaint: ABD PAIN History of Present Illness Narrative: Seen and examined. Events noted. C/O N/V and gen weak. [facility] Past Medical History Medical History (Updated 05/22/20 @ 12:29 by Segundo Ham MD) Bipolar disorder Bowel obstruction Breast cancer COPD (chronic obstructive pulmonary disease) ESRD (end stage renal disease) Hypothyroidism MSSA bacteremia Paroxysmal A-fib Pulmonary emboli SBO (small bowel obstruction) Functional capacity: independent ambulation Family History Family history: reviewed and not pertinent Social History Social History Alcohol intake: unknown Smoking Status: Former smoker Smoked in Last 30 Days: No Use of substances other than those prescribed or required for medical reasons: No Currently Displaying Signs/Symptoms of Drug Intoxication Withdrawal: No Advance Directives: No Advance Directives Information Provided: Yes Do you have thoughts of harming others: None Do you have a plan to hurt others: No Plan Meds Allergies Allergy/AdvReac Type Severity Reaction Status Date / Time aspirin Allergy Unknown RASH Unverified 05/04/20 16:04 benztropine Allergy Unknown RASH Unverified 05/04/20 16:04 ibuprofen Allergy Unknown Verified 02/15/20 00:00 NSAIDS (Non-Steroidal Allergy Unknown RASH Unverified 05/04/20 16:04 Anti-Inflamma ziprasidone Allergy Unknown UNKNOWN Unverified 05/04/20 16:04 From COGENTIN Allergy Unknown UNKNOWN Uncoded 05/04/20 16:04 paper tape Allergy Unknown Uncoded 02/15/20 00:00 Plastic tape Allergy Unknown Uncoded 03/21/20 00:00 TAPE,PAPER Allergy Unknown BRUISING Uncoded 05/04/20 16:04 Home Medications Medication Instructions Recorded Confirmed Type apixaban [Eliquis] 2.5 mg PO BID 05/21/20 05/22/20 History clonazepam 1.5 mg PO BEDTIME 05/21/20 05/22/20 History clozapine 50 mg PO BEDTIME 05/21/20 05/22/20 History dronedarone [Multaq] 400 mg PO BID 05/21/20 05/22/20 History hydroxyzine pamoate 50 mg PO BEDTIME PRN 05/21/20 05/22/20 History lamotrigine 300 mg PO BEDTIME 05/21/20 05/22/20 History levothyroxine 125 mcg PO QAM 05/21/20 05/22/20 History midodrine 5 mg PO TID 05/21/20 05/22/20 History omeprazole 40 mg PO BID 05/21/20 05/22/20 History acetaminophen 650 mg PO BID PRN 05/22/20 05/22/20 History fluticasone propion-salmeterol 1 inh INHALATION BID 05/22/20 05/22/20 History [Wixela Inhub] sevelamer carbonate 800 mg PO TID 05/22/20 05/22/20 History Physical Exam Vital Signs and I&O: Vital Signs Temp 97.2 F 05/22/20 11:48 Pulse 90 05/22/20 11:48 Resp 18 05/22/20 11:48 BP 104/67 05/22/20 11:48 Pulse Ox 95 05/22/20 11:48 Intake & Output 05/21/20 05/22/20 05/22/20 18:59 06:59 18:59 Intake Total 1050.25 / 1210.25 160 / 1210.25 Balance 1050.25 / 1210.25 160 / 1210.25 Weight 55.338 kg Intake: Intake, Oral Amount 60 / 60 Intake, IV Amount 1050.25 / 1150.25 100 / 1150.25 Promethazine HCL 6.25 mg In 0.9 50.25 / 50.25 % Sodium Chloride 50 ml @ 201 mls/hr IV ONCE ONE Rx#: [id number] metroNIDAZOLE/NS 500 mg In 100 100 / 100 ml @ 100 mls/hr IV ONCE ONE Rx# :[id number] 0.9 % Sodium Chloride 1,000 ml 1000 / 1000 @ 999 mls/hr IVCONT .[id number] HERNESTO Rx#:[id number] Other: Urine Bedpan Urine Color Yellow Body Mass Index 21.6 Const General: cooperative and no acute distress Orientation/consciousness: patient oriented x3 HENMT Head: Yes normal to inspection Ears: hearing grossly normal bilaterally General nose exam: Normal external nose present Face and sinus: Yes normal facial exam Eyes General: appearance normal, both eyes and all related structures Neck Neck: Yes normal visual inspection and Yes no JVD Chest Chest palpation & inspection: normal inspection of the chest and normal palpation of entire chest wall Resp Effort & Inspection: normal respiratory effort Auscultation: clear to auscultation bilaterally Cardio Jugular venous distension: no JVD Rate: regular rate GI Inspection: Yes normal to inspection Palpation (GI): Tenderness to palpation present (GI) (No evidence of tenderness) Skin General skin exam: no rashes or lesions noted Neuro General: patient oriented x3 Extrem General: Yes other (dry sking in bilateral LE ) Psych Mental Status: mental status grossly normal Results Lab Results Result Diagrams: 05/22/20 06:09 05/22/20 06:09 Lab results: Chemistry 05/21/20 05/22/20 16:10 06:09 Sodium 142 143 Potassium 4.1 4.7 Carbon Dioxide 26 19 L BUN 33 H 39 H Creatinine 5.12 H* 5.68 H* Calcium 10.4 H 9.8 Hematology 05/21/20 05/22/20 16:10 06:09 WBC 13.1 H 7.8 Hgb 10.8 L 11.3 L Plt Count 383 236 D Assessment and Plan (1) Vomiting: Qualifiers: Nausea presence: with nausea Vomiting Intractability: intractable Vom iting type: unspecified Qualified Code(s): R11.2 - Nausea with vomiting, unspecified Status: Acute (2) C. difficile diarrhea: Status: Acute (3) MSSA bacteremia: Status: Acute (4) GERD (gastroesophageal reflux disease): Status: Acute (5) Seizure: Status: Acute (6) Hypothyroidism: Status: Acute (7) Paroxysmal A-fib: Status: Acute (8) Bipolar disorder: Status: Acute (9) COPD (chronic obstructive pulmonary disease): Status: Acute (10) ESRD (end stage renal disease): Status: Acute 1. ESRD: mwf 2. MSSA recrrent: last adm Pcath repalced; cont anceph 2/2/3 after HD..? duration 3. N/V 4. Deconditioned REC: cont HD; meds as noted will follow with team
--- NOTE | 2020-05-22 13:04 | W.PM.IDCN ---
History of Present Illness Data of Consult Primary Care Provider: Unknown Physician HPI She presents to hospital with two days watery diarrhea She has Cdiff toxin B positive,PCR pending She has been on Kefzol for MSSA bacteremia,6 week total to be finished Review of Systems Constitutional: Constitutional: Reports no additional constitutional complaints Gastrointestinal: Gastrointestinal: Reports diarrhea and Reports loose stools PMFSH Past Medical History Medical History (Updated 05/22/20 @ 13:08 by Angelina Salamanca MD) Bipolar disorder Bowel obstruction Breast cancer COPD (chronic obstructive pulmonary disease) Diarrhea Diarrhea ESRD (end stage renal disease) Hypothyroidism MSSA bacteremia Paroxysmal A-fib Pulmonary emboli SBO (small bowel obstruction) Functional capacity: independent ambulation Family History Family history: reviewed and not pertinent Social History Social History Alcohol intake: unknown Smoking Status: Former smoker Smoked in Last 30 Days: No Use of substances other than those prescribed or required for medical reasons: No Currently Displaying Signs/Symptoms of Drug Intoxication Withdrawal: No Advance Directives: No Advance Directives Information Provided: Yes Do you have thoughts of harming others: None Do you have a plan to hurt others: No Plan Meds Allergies Allergy/AdvReac Type Severity Reaction Status Date / Time aspirin Allergy Unknown RASH Unverified 05/04/20 16:04 benztropine Allergy Unknown RASH Unverified 05/04/20 16:04 ibuprofen Allergy Unknown Verified 02/15/20 00:00 NSAIDS (Non-Steroidal Allergy Unknown RASH Unverified 05/04/20 16:04 Anti-Inflamma ziprasidone Allergy Unknown UNKNOWN Unverified 05/04/20 16:04 From COGENTIN Allergy Unknown UNKNOWN Uncoded 05/04/20 16:04 paper tape Allergy Unknown Uncoded 02/15/20 00:00 Plastic tape Allergy Unknown Uncoded 03/21/20 00:00 TAPE,PAPER Allergy Unknown BRUISING Uncoded 05/04/20 16:04 Home Medications Medication Instructions Recorded Confirmed Type apixaban [Eliquis] 2.5 mg PO BID 05/21/20 05/22/20 History clonazepam 1.5 mg PO BEDTIME 05/21/20 05/22/20 History clozapine 50 mg PO BEDTIME 05/21/20 05/22/20 History dronedarone [Multaq] 400 mg PO BID 05/21/20 05/22/20 History hydroxyzine pamoate 50 mg PO BEDTIME PRN 05/21/20 05/22/20 History lamotrigine 300 mg PO BEDTIME 05/21/20 05/22/20 History levothyroxine 125 mcg PO QAM 05/21/20 05/22/20 History midodrine 5 mg PO TID 05/21/20 05/22/20 History omeprazole 40 mg PO BID 05/21/20 05/22/20 History acetaminophen 650 mg PO BID PRN 05/22/20 05/22/20 History fluticasone propion-salmeterol 1 inh INHALATION BID 05/22/20 05/22/20 History [Wixela Inhub] sevelamer carbonate 800 mg PO TID 05/22/20 05/22/20 History Physical Exam Vital Signs and I&O and Narrative: Vital Signs and I&O: Vital Signs Temp 97.2 F 05/22/20 11:48 Pulse 90 05/22/20 11:48 Resp 18 05/22/20 11:48 BP 104/67 05/22/20 11:48 Pulse Ox 95 05/22/20 11:48 Intake & Output 05/21/20 05/22/20 05/22/20 18:59 06:59 18:59 Intake Total 1050.25 / 1210.25 160 / 1210.25 890 / 890 Balance 1050.25 / 1210.25 160 / 1210.25 890 / 890 Weight 122 lb Intake: Intake, Oral [place] unt 60 / 60 Intake, IV Amoun t 1050.25 / 1150.25 100 / 1150.25 890 / 890 Promethazine H CL 6.25 mg In 0.9 50.25 / 50.25 % Sodium Chlor kush 50 ml @ 201 mls/hr IV ONCE ONE Rx#: [id number] metroNIDAZOLE/ NS 500 mg In 100 100 / 100 ml @ 100 mls/h r IV ONCE ONE Rx# :[id number] 0.9 % Sodium C hloride 1,000 ml 1000 / 1000 890 / 890 @ 75 mls/hr IV CONT .[id number] HERNESTO Rx#:[id number] Other: Urine Bedpan Urine Color Yellow Body Mass Index 21.6 Const: General: cooperative HENMT: Head: Yes normal to inspection Resp: Effort & Inspection: normal respiratory effort Cardio: Rate: regular rate GI: Inspection: Yes normal to inspection Skin: General skin exam: no rashes or lesions noted Extrem: General: Yes normal to inspection Assessment and Plan (1) Vomiting: Qualifiers: Nausea presence: with nausea Vomiting Intractability: intractable Vomiting type: unspecified Qualified Code(s): R11.2 - Nausea with vomiting, unspecified Status: Acute (2) MSSA bacteremia: Status: Acute (3) GERD (gastroesophageal reflux disease): Status: Acute (4) Seizure: Status: Acute (5) Hypothyroidism: Status: Acute (6) SBO (small bowel obstruction): Status: Acute (7) Bipolar disorder: Status: Acute (8) COPD (chronic obstructive pulmonary disease): Status: Acute (9) ESRD (end stage renal disease): Status: Acute (10) Diarrhea: Problem details: Possible Cdiff,toxin positive Await PCR Status: Acute If Cdiff pcrpositive po Vancomycin for 10 days Await pcr
--- NOTE | 2020-05-22 13:09 | P.CNID_ITS ---
History of Present Illness Data of Consult Primary Care Provider: Unknown Physician [facility] Past Medical History Medical History (Updated 05/22/20 @ 13:08 by Angelina Salamanca MD) Bipolar disorder Bowel obstruction Breast cancer COPD (chronic obstructive pulmonary disease) Diarrhea Diarrhea ESRD (end stage renal disease) Hypothyroidism MSSA bacteremia Paroxysmal A-fib Pulmonary emboli SBO (small bowel obstruction) Functional capacity: independent ambulation Family History Family history: reviewed and not pertinent Social History Social History Alcohol intake: unknown Smoking Status: Former smoker Smoked in Last 30 Days: No Use of substances other than those prescribed or required for medical reasons: No Currently Displaying Signs/Symptoms of Drug Intoxication Withdrawal: No Advance Directives: No Advance Directives Information Provided: Yes Do you have thoughts of harming others: None Do you have a plan to hurt others: No Plan Meds Allergies Allergy/AdvReac Type Severity Reaction Status Date / Time aspirin Allergy Unknown RASH Unverified 05/04/20 16:04 benztropine Allergy Unknown RASH Unverified 05/04/20 16:04 ibuprofen Allergy Unknown Verified 02/15/20 00:00 NSAIDS (Non-Steroidal Allergy Unknown RASH Unverified 05/04/20 16:04 Anti-Inflamma ziprasidone Allergy Unknown UNKNOWN Unverified 05/04/20 16:04 From COGENTIN Allergy Unknown UNKNOWN Uncoded 05/04/20 16:04 paper tape Allergy Unknown Uncoded 02/15/20 00:00 Plastic tape Allergy Unknown Uncoded 03/21/20 00:00 TAPE,PAPER Allergy Unknown BRUISING Uncoded 05/04/20 16:04 Home Medications Medication Instructions Recorded Confirmed Type apixaban [Eliquis] 2.5 mg PO BID 05/21/20 05/22/20 History clonazepam 1.5 mg PO BEDTIME 05/21/20 05/22/20 History clozapine 50 mg PO BEDTIME 05/21/20 05/22/20 History dronedarone [Multaq] 400 mg PO BID 05/21/20 05/22/20 History hydroxyzine pamoate 50 mg PO BEDTIME PRN 05/21/20 05/22/20 History lamotrigine 300 mg PO BEDTIME 05/21/20 05/22/20 History levothyroxine 125 mcg PO QAM 05/21/20 05/22/20 History midodrine 5 mg PO TID 05/21/20 05/22/20 History omeprazole 40 mg PO BID 05/21/20 05/22/20 History acetaminophen 650 mg PO BID PRN 05/22/20 05/22/20 History fluticasone propion-salmeterol 1 inh INHALATION BID 05/22/20 05/22/20 History [Wixela Inhub] sevelamer carbonate 800 mg PO TID 05/22/20 05/22/20 History Physical Exam Vital Signs and I&O and Narrative: Vital Signs and I&O: Vital Signs Temp 97.2 F 05/22/20 11:48 Pulse 90 05/22/20 11:48 Resp 18 05/22/20 11:48 BP 104/67 05/22/20 11:48 Pulse Ox 95 05/22/20 11:48 Intake & Output 05/21/20 05/22/20 05/22/20 18:59 06:59 18:59 Intake Total 1050.25 / 1210.25 160 / 1210.25 890 / 890 Balance 1050.25 / 1210.25 160 / 1210.25 890 / 890 Weight 122 lb Intake: Intake, Oral [place] unt 60 / 60 Intake, IV Amoun t 1050.25 / 1150.25 100 / 1150.25 890 / 890 Promethazine H CL 6.25 mg In 0.9 50.25 / 50.25 % Sodium Chlor kush 50 ml @ 201 mls/hr IV ONCE ONE Rx#: [id number] metroNIDAZOLE/ NS 500 mg In 100 100 / 100 ml @ 100 mls/h r IV ONCE ONE Rx# :[id number] 0.9 % Sodium C hloride 1,000 ml 1000 / 1000 890 / 890 @ 75 mls/hr IV CONT .[id number] HERNESTO Rx#:[id number] Other: Urine Bedpan Urine Color Yellow Body Mass Index 21.6
--- NOTE | 2020-05-22 14:57 | MHC.CM.PN ---
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 patient confirmed has health care proxy and m,olst form on file from last admission . patientd gurjit confirmed tht she jonathan ay hme , he reported that in december she has covid and her health had declined, she is active with the [facility] visiting nurse for nrusing home physical theapry and occupational theapry , she does require assistance with bathing ,dressing and for mobility wheelchair or home physical thepary working on using a walker , patients reported she has commode , shower cahir and shower /bnath rails, he reported that he is retired and prvides her care , he would like her to be able to come back home and resume her current servciesr receives hemodialysis - friday-friday and friday 4-8;30pm shift [facility] now on [facility] [place] phone [phone] (this was confirmed with diaysis malina ) discharge plan to be determined resumtpion of of her he,modialysis 9 as seen above) for nrusign home physical and occupational theapry pcp dr jennifer purcell pt/ will fallon and make post dischagre jenna uyp at time of discharge resumtpoin of her hemoduialysi [phone] transportation
--- NOTE | 2020-05-22 15:53 | MHC.CLN ---
RECOMMEND 1500 DIABETIC RENAL DIET R/T ESRD ON HD
[2020-05-22] MEDS: ceFAZolin Sodium/Dextrose,Iso 2 GM/50 ML PIGGYBACK IV (19:19)
[2020-05-22] MEDS: lamoTRIgine 100 MG TABLET 300 MG PO (20:55)
[2020-05-22] MEDS: clonazePAM 0.5 MG TABLET 1.5 MG PO (20:57)
[2020-05-22] MEDS: cloZAPine 25 MG TABLET 50 MG PO (21:06)
[2020-05-23] VITALS (7 sets, daily range): BP systolic 116–157; BP diastolic 60–93; PULSE 92–103; RESP 18–19; TEMP 35.8–36.7; O2SAT 93–98
[2020-05-23] MEDS: Levothyroxine Sodium 125 MCG TABLET PO (06:11)
[2020-05-23] MEDS: Omeprazole 40 MG CAPSULE.DR PO ×2 (06:11→17:18)
[2020-05-23 06:47] LABS: Basophils Percent Auto 0.2 % (0-2); Eosinophils Absolute Auto 0.2 X10*3/uL (0.0-0.4); Eosinophils Percent Auto 1.7 % (0-4); Hematocrit 36.7 % (37-47); Hemoglobin 11.4 g/dl (12.0-16.0); Imm Gran Abs Auto 0.07 X10*3/uL (0.00-0.03); Imm Gran Pct Auto 0.6 % (0.0-0.4); Lymphocytes Absolute Auto 0.9 X10*3/uL (1.2-4.9); Lymphocytes Percent Auto 6.9 % (20-40); MANUAL DIFF FLAG SCAN; Mean Corpuscular HGB Conc 31.1 g/dl (31.0-35.0); Mean Corpuscular Hemoglobin 30.6 pg (27.0-33.0); Mean Corpuscular Volume 98.7 fL (80-98); Mean Platelet Volume 9.1 fL (9.4-12.3); Monocytes Absolute Auto 1.6 X10*3/uL (0.1-1.2); Monocytes Percent Auto 12.4 % (2-11); Neutrophils Absolute Auto 9.9 X10*3/uL (2.0-8.3); Neutrophils Percent Auto 78.2 % (45-73); Platelet Count 303 X10*3/uL (160-400); Red Blood Count 3.72 X10*6/uL (4.20-5.50); Red Cell Distribution Width 16.7 % (11.0-16.0); SCAN SMEAR FLAG 1; White Blood Count 12.7 X10*3/uL (4.8-10.8)
[2020-05-23 07:27] LABS: Anion Gap 17 (12-20); Blood Urea Nitrogen 15 mg/dL (9-16); Carbon Dioxide 20 mmol/L (22-29); Chloride 102 mmol/L (96-108); Creatinine Clr Calc Pharmacy 14.5; Estimated Glomerular Filt Rate 16; Glucose Fasting 75 mg/dL (60-99); Potassium 3.7 mmol/l (3.3-5.1); Sodium 135 mmol/L (135-145)
[2020-05-23 07:50] LABS: SLIDE REVIEW VERIFIED
--- NOTE | 2020-05-23 11:04 | P.PNNP_ITS ---
Subjective Subjective Interval history: Seen and examined this AM overall feeling better this am Physical Exam Vital Signs and I&O and Narrative: Vital Signs and I&O: Vital Signs Temp 97.5 F 05/23/20 07:57 Pulse 97 05/23/20 07:57 Resp 18 05/23/20 07:57 BP 116/60 05/23/20 07:57 Pulse Ox 94 05/23/20 07:57 Intake & Output 05/22/20 05/23/20 05/23/20 18:59 06:59 18:59 Intake Total 1070 / 1290.5 220.5 / 1290.5 100 / 100 Output Total 0 / 0 Balance 1070 / 1290.5 220.5 / 1290.5 100 / 100 Urine Output (Aver age ml/kg/hr) 0.00 0.00 Intake: Intake, Oral [place] unt 180 / 300 120 / 300 100 / 100 Intake, IV Amoun t 890 / 990.5 100.5 / 990.5 Promethazine H CL 12.5 mg In 0.9 50.5 / 50.5 % Sodium Chlor kush 50 ml @ 202 mls/hr IV ONCE ONE Rx#: [id number] ceFAZolin Sodi um/Dextrose,Iso 2 50 / 50 gm In 50 ml @ 100 mls/hr IV MOWEFR@1645 SC H Rx#:[id number] 0.9 % Sodium C hloride 1,000 ml 890 / 890 @ 75 mls/hr IV CONT .[id number] HERNESTO Rx#:[id number] Output: Output, Urine Am ount 0 / 0 Other: Meal Refused Yes Breakfast % Eate n 25% Number of Incont inent Voids 1 Urine Bedpan Body Mass Index 21.6 Const: General: cooperative and no acute distress Orientation/consci ousness: patient oriented x3 HENMT: Head: Yes normal to inspection Ears: hearing grossly normal bilaterally General nose exam: Normal external nose present Face and sinus: Yes normal facial exam Eyes: General: appearance normal, both eyes and all related structures Neck: Neck: Yes normal visual inspection and Yes no JVD Chest: Chest palpation & inspection: normal inspection of the chest and normal palpation of entire chest wall Resp: Effort & Inspection: normal respiratory effort Auscultation: clear to auscultation bilaterally Cardio: Jugular venous distension: no JVD Rate: regular rate GI: Inspection: Yes normal to inspection Palpation (GI): Tenderness to palpation present (GI) (No evidence of tenderness) Skin: General skin exam: no rashes or lesions noted Neuro: General: patient oriented x3 Extrem: General: Yes normal to inspection and Yes other (dry sking in bilateral LE ) Psych: Mental Status: mental status grossly normal Assessment & Plan Assessment and plan (1) Diarrhea: Problem details: Possible Cdiff,toxin positive Await PCR Status: Acute (2) Vomiting: Status: Acute (3) C. difficile diarrhea: Status: Acute (4) MSSA bacteremia: Status: Acute (5) GERD (gastroesophageal reflux disease): Status: Acute (6) Seizure: Status: Acute (7) Hypothyroidism: Status: Acute (8) Paroxysmal A-fib: Status: Acute (9) Bipolar disorder: Status: Acute (10) COPD (chronic obstructive pulmonary disease): Status: Acute (11) ESRD (end stage renal disease): Status: Acute Assessment and Plan: 1. ESRD: mwf 2. MSSA recrrent: last adm Pcath repalced; cont anceph 2/2/3 after HD..? duration 3. N/V/diarrhea: c.diff 4. Deconditioned REC: cont HD; meds as noted; d/c planning; ABx continuation to complete Tx course for MSSA will follow with team Time Spent With Patient Time: Total time spent is greater than 50% in coordination of care (as documented) at patient's floor/unit and/or counseling patient:
[2020-05-23] MEDS: 0.9 % Sodium Chloride 1,000 ML 75 ML IVCONT (11:18)
--- NOTE | 2020-05-23 13:39 | PM.IMPN ---
Subjective Subjective Interval History: Seen and examined this AM overall feeling better this am but intermittently nauseous Physical Exam Vital Signs and I&O and Narrative: Vital Signs and I&O: Vital Signs Temp 98.1 F 05/23/20 11:53 Pulse 103 H 05/23/20 11:53 Resp 18 05/23/20 11:53 BP 138/63 05/23/20 11:53 Pulse Ox 93 05/23/20 11:53 Intake & Output 05/22/20 05/23/20 05/23/20 18:59 06:59 18:59 Intake Total 1070 / 1290.5 220.5 / 1290.5 1050 / 1050 Output Total 0 / 0 Balance 1070 / 1290.5 220.5 / 1290.5 1050 / 1050 Urine Output (Aver age ml/kg/hr) 0.00 0.00 Intake: Intake, Oral [place] unt 180 / 300 120 / 300 100 / 100 Intake, IV Amoun t 890 / 990.5 100.5 / 990.5 950 / 950 Promethazine H CL 12.5 mg In 0.9 50.5 / 50.5 % Sodium Chlor kush 50 ml @ 202 mls/hr IV ONCE ONE Rx#: [id number] ceFAZolin Sodi um/Dextrose,Iso 2 50 / 50 gm In 50 ml @ 100 mls/hr IV MOWEFR@1645 SC H Rx#:[id number] 0.9 % Sodium C hloride 1,000 ml 890 / 890 950 / 950 @ 75 mls/hr IV CONT .[id number] HERNESTO Rx#:[id number] Output: Output, Urine Am ount 0 / 0 Other: Meal Refused Yes Breakfast % Eate n 25% Number of Incont inent Voids 1 Urine Bedpan Body Mass Index 21.6 Const: General: cooperative and no acute distress Orientation/consciousness: patient oriented x3 HENMT: Head: Yes normal to inspection Ears: hearing grossly normal bilaterally General nose exam: Normal external nose present Face and sinus: Yes normal facial exam Eyes: General: appearance normal, both eyes and all related structures Neck: Neck: Yes normal visual inspection and Yes no JVD Chest: Chest palpation & inspection: normal inspection of the chest and normal palpation of entire chest wall Resp: Effort & Inspection: normal respiratory effort Auscultation: clear to auscultation bilaterally Cardio: Jugular venous distension: no JVD Rate: regular rate GI: Inspection: Yes normal to inspection Palpation (GI): Tenderness to palpation present (GI) (No evidence of tenderness) Skin: General skin exam: no rashes or lesions noted Neuro: General: patient oriented x3 Extrem: General: Yes other (dry sking in bilateral LE ) Psych: Mental Status: mental status grossly normal Objective Data Current Medications Generic Name Dose Route Start Last Admin Trade Name Freq PRN Reason Stop Dose Admin Acetaminophen 650 mg 05/22/20 09:13 Acetaminophen 325 Mg Tablet PO BID PRN Pain (Scale Score 1-3) Apixaban 2.5 mg 05/22/20 09:00 05/23/20 11:49 Apixaban 2.5 Mg Tablet PO Not Given BID HERNESTO Clonazepam 1.5 mg 05/22/20 21:00 05/22/20 20:57 Clonazepam 0.5 Mg Tablet PO 1.5 mg BEDTIME HERNESTO Administration Clozapine 50 mg 05/22/20 21:00 05/22/20 21:06 Clozapine 25 Mg Tablet PO 50 mg BEDTIME HERNESTO Administration Dronedarone 400 mg 05/22/20 09:00 05/23/20 11:49 Dronedarone Hcl 400 Mg Tablet PO Not Given BID HERNESTO Fluticasone/Vilanterol 1 puff 05/23/20 08:00 Fluticasone/Vilanterol 200/25 Blst.W.Dev INHALE RDAILY HERNESTO Hydroxyzine HCl 50 mg 05/22/20 09:51 Hydroxyzine Hcl 50 Mg Tablet PO BEDTIME PRN Sleep Sodium Chloride 1,000 mls @ 75 mls/hr 05/22/20 00:14 05/23/20 11:18 Ns IVCONT 75 mls/hr .[id number] HERNESTO Administration Cefazolin Sodium/Dextrose 2 gm in 50 mls @ 100 mls/hr 05/22/20 16:45 05/22/20 19:49 Ancef IV Infused MOWEFR@1645 HERNESTO Infusion Lamotrigine 300 mg 05/22/20 21:00 05/22/20 20:55 Lamotrigine 100 Mg Tablet PO 300 mg BEDTIME HERNESTO Administration Levothyroxine Sodium 125 mcg 05/22/20 06:30 05/23/20 06:11 Levothyroxine Sodium 125 Mcg Tablet PO 125 mcg DAILY@0630 [facility] Administration Midodrine 5 mg 05/22/20 09:00 05/23/20 11:51 Midodrine Hcl 5 Mg Tablet PO Not Given TID [facility] Omeprazole 40 mg 05/22/20 06:30 05/23/20 06:11 Omeprazole 40 Mg Capsule. PO 40 mg BID@0630,1630 [facility] Administration Sevelamer HCl 800 mg 05/22/20 15:00 05/23/20 11:51 Sevelamer Hcl 800 Mg Tablet PO Not Given TID [facility] Sodium Chloride 2 ml 05/22/20 00:14 05/23/20 07:28 0.9 % Sodium Chloride Flush 3 Ml Syringe IVFLUSH Not Given QSHIFT [facility] Vancomycin HCl 125 mg 05/22/20 19:00 05/23/20 07:27 Vancomycin Hcl 125 Mg/5 Ml Soln.Recon PO 125 mg Q6H HERNESTO Administration Labs CBC & Chem 7: 05/23/20 06:13 05/23/20 06:13 Labs: Laboratory Results - last 24 hr 05/23/20 05/23/20 06:13 06:13 MCV 98.7 H MCH 30.6 MCHC 31.1 RDW 16.7 H Plt Count 303 D MPV 9.1 L Immature Gran % (Auto) 0.6 H Neut % (Auto) 78.2 H Lymph % (Auto) 6.9 L [place] % (Auto) 12.4 H Eos % (Auto) 1.7 Baso % (Auto) 0.2 Neut # (Auto) 9.9 H Lymph # (Auto) 0.9 L [place] # (Auto) 1.6 H Eos # (Auto) 0.2 Baso # (Auto) 0.0 Abs Immat Gran (auto) 0.07 H Absolute Nucleated RBC 0.000 Nucleated RBC % (auto) 0.0 Smear Tech's Comments VERIFIED Anion Gap 17 Estim Creat Clear Calc 14.5 Estimated GFR 16 Fasting Glucose 75 Calcium 9.0 Microbiology Microbiology Results: Microbiology 05/21/20 16:10 Blood - Venous Blood Culture - Preliminary No growth after 24 hours. 05/21/20 16:10 Blood - Venous Blood Culture - Preliminary No growth after 24 hours. Progress Note: A&P (1) Diarrhea: Problem details: Possible Cdiff,toxin positive Await PCR Status: Acute (2) Vomiting: Status: Acute (3) C. difficile diarrhea: Status: Acute (4) MSSA bacteremia: Status: Acute (5) GERD (gastroesophageal reflux disease): Status: Acute (6) Seizure: Status: Acute (7) Hypothyroidism: Status: Acute (8) Paroxysmal A-fib: Status: Acute (9) Bipolar disorder: Status: Acute (10) COPD (chronic obstructive pulmonary disease): Status: Acute (11) ESRD (end stage renal disease): Status: Acute Assessment and Plan: 1. ESRD: mwf 2. MSSA recrrent: last adm Pcath repalced; cont anceph after HD..? duration 3. N/V/diarrhea: c.diff 4. Deconditioned REC: cont HD; meds as noted; d/c planning; ABx continuation to complete Tx course for MSSA will follow with team
--- NOTE | 2020-05-23 13:45 | P.PNIM_ITS ---
Subjective Subjective Date of Service: 05/23/20 Interval History: seen and examined feeling better less nausea Review of Systems General - no fevers or chills Cardiovascular - no chest pain Respiratory - no shortness of breath or cough Abdominal- no abdominal pain, mild nausea Physical Exam Vital Signs and I&O and Narrative: Vital Signs and I&O: Vital Signs Temp 98.1 F 05/23/20 11:53 Pulse 103 H 05/23/20 11:53 Resp 18 05/23/20 11:53 BP 138/63 05/23/20 11:53 Pulse Ox 93 05/23/20 11:53 Intake & Output 05/22/20 05/23/20 05/23/20 18:59 06:59 18:59 Intake Total 1070 / 1290.5 220.5 / 1290.5 1050 / 1050 Output Total 0 / 0 Balance 1070 / 1290.5 220.5 / 1290.5 1050 / 1050 Urine Output (Aver age ml/kg/hr) 0.00 0.00 Intake: Intake, Oral [place] unt 180 / 300 120 / 300 100 / 100 Intake, IV Amoun t 890 / 990.5 100.5 / 990.5 950 / 950 Promethazine H CL 12.5 mg In 0.9 50.5 / 50.5 % Sodium Chlor kush 50 ml @ 202 mls/hr IV ONCE ONE Rx#: [id number] ceFAZolin Sodi um/Dextrose,Iso 2 50 / 50 gm In 50 ml @ 100 mls/hr IV MOWEFR@1645 [facility] Rx#:[id number] 0.9 % Sodium C hloride 1,000 ml 890 / 890 950 / 950 @ 75 mls/hr IV CONT .[id number] [facility] Rx#:[id number] Output: Output, Urine Am ount 0 / 0 Other: Meal Refused Yes Breakfast % Eate n 25% Number of Incont inent Voids 1 Urine Bedpan Body Mass Index 21.6 General - no acute distress, appears comfortable Cardiovascular - regular rate and rhythm, S1-S2 Lungs - normal respiratory effort, clear to auscultation bilaterally, no wheezing Abdomen - soft, nontender, no rebound regarding Extremities - no edema bilaterally Neuro - awake and alert, no focal deficits Const: Orientation/consciousness: patient oriented x3 HENMT: Head: Yes normal to inspection Ears: hearing grossly normal bilaterally General nose exam: Normal external nose present Face and sinus: Yes normal facial exam Eyes: General: appearance normal, both eyes and all related structures Neck: Neck: Yes normal visual inspection and Yes no JVD Chest: Chest palpation & inspection: normal inspection of the chest and normal palpation of entire chest wall Cardio: Jugular venous distension: no JVD Rate: regular rate GI: Inspection: Yes normal to inspection Palpation (GI): Tenderness to palpation present (GI) (No evidence of tenderness) Skin: General skin exam: no rashes or lesions noted Neuro: General: patient oriented x3 Objective Data Current Medications Generic Name Dose Route Start Last Admin Trade Name Freq PRN Reason Stop Dose Admin Acetaminophen 650 mg 05/22/20 09:13 Acetaminophen 325 Mg Tablet PO BID PRN Pain (Scale Score 1-3) Apixaban 2.5 mg 05/22/20 09:00 05/23/20 11:49 Apixaban 2.5 Mg Tablet PO Not Given BID [facility] Clonazepam 1.5 mg 05/22/20 21:00 05/22/20 20:57 Clonazepam 0.5 Mg Tablet PO 1.5 mg BEDTIME [facility] Administration Clozapine 50 mg 05/22/20 21:00 05/22/20 21:06 Clozapine 25 Mg Tablet PO 50 mg BEDTIME [facility] Administration Dronedarone 400 mg 05/22/20 09:00 05/23/20 11:49 Dronedarone Hcl 400 Mg Tablet PO Not Given BID [facility] Fluticasone/Vilanterol 1 puff 05/23/20 08:00 Fluticasone/Vilanterol 200/25 Blst.W.Dev INHALE RDAILY [facility] Hydroxyzine HCl 50 mg 05/22/20 09:51 Hydroxyzine Hcl 50 Mg Tablet PO BEDTIME PRN Sleep Sodium Chloride 1,000 mls @ 75 mls/hr 05/22/20 00:14 05/23/20 11:18 Ns IVCONT 75 mls/hr .[id number] [facility] Administration Cefazolin Sodium/Dextrose 2 gm in 50 mls @ 100 mls/hr 05/22/20 16:45 05/22/20 19:49 Ancef IV Infused MOWEFR@1645 [facility] Infusion Lamotrigine 300 mg 05/22/20 21:00 05/22/20 20:55 Lamotrigine 100 Mg Tablet PO 300 mg BEDTIME [facility] Administration Levothyroxine Sodium 125 mcg 05/22/20 06:30 05/23/20 06:11 Levothyroxine Sodium 125 Mcg Tablet PO 125 mcg DAILY@0630 [facility] Administration Midodrine 5 mg 05/22/20 09:00 05/23/20 11:51 Midodrine Hcl 5 Mg Tablet PO Not Given TID [facility] Omeprazole 40 mg 05/22/20 06:30 05/23/20 06:11 Omeprazole 40 Mg Capsule.Dr PO 40 mg BID@0630,1630 [facility] Administration Ondansetron HCl 4 mg 05/23/20 13:40 Ondansetron Hcl 4 Mg/2 Ml Vial IVPUSH Q8H PRN Nausea and Vomiting Sevelamer HCl 800 mg 05/22/20 15:00 05/23/20 11:51 Sevelamer Hcl 800 Mg Tablet PO Not Given TID [facility] Sodium Chloride 2 ml 05/22/20 00:14 05/23/20 07:28 0.9 % Sodium Chloride Flush 3 Ml Syringe IVFLUSH Not Given QSHIFT [facility] Vancomycin HCl 125 mg 05/22/20 19:00 05/23/20 07:27 Vancomycin Hcl 125 Mg/5 Ml Soln.Recon PO 125 mg Q6H [facility] Administration Labs CBC & Chem 7: 05/23/20 06:13 05/23/20 06:13 Labs: Laboratory Results - last 24 hr 05/23/20 05/23/20 06:13 06:13 MCV 98.7 H MCH 30.6 MCHC 31.1 RDW 16.7 H Plt Count 303 D MPV 9.1 L Immature Gran % (Auto) 0.6 H Neut % (Auto) 78.2 H Lymph % (Auto) 6.[address] [place] % (Auto) 12.4 H Eos % (Auto) 1.7 Baso % (Auto) 0.2 Neut # (Auto) 9.9 H Lymph # (Auto) 0.[address] [place] # (Auto) 1.6 H Eos # (Auto) 0.2 Baso # (Auto) 0.0 Abs Immat Gran (auto) 0.07 H Absolute Nucleated RBC 0.000 Nucleated RBC % (auto) 0.0 Smear Tech's Comments VERIFIED Anion Gap 17 Estim Creat Clear Calc 14.5 Estimated GFR 16 Fasting Glucose 75 Calcium 9.0 Microbiology Microbiology Results: Microbiology 05/21/20 16:10 Blood - Venous Blood Culture - Preliminary No growth after 24 hours. 05/21/20 16:10 Blood - Venous Blood Culture - Preliminary No growth after 24 hours. Progress Note: A&P (1) Diarrhea: Status: Acute (2) Vomiting: Status: Acute (3) C. difficile diarrhea: Status: Acute (4) MSSA bacteremia: Status: Acute (5) GERD (gastroesophageal reflux disease): Status: Acute (6) Seizure: Status: Acute (7) Hypothyroidism: Status: Acute (8) Paroxysmal A-fib: Status: Acute (9) Bipolar disorder: Status: Acute (10) COPD (chronic obstructive pulmonary disease): Status: Acute (11) ESRD (end stage renal disease): Status: Acute Assessment and Plan: This is a 74-year-old female well known to the hospitalist service who is presenting to the hospital with complaints of nausea and vomiting. She does have a history of recurrent partial / complete small-bowel obstructions which fortunately is not evident on the CT scan. She is admitted for further workup 1. nausea and vomiting improving -- avoid zofran/reglan (med interaction with Multaq). use ativan PRN for nausea diabetic diet 2. C. diff colitis PO vancomcyin day #2 ID in put appreciated 3. Recent MSSA Bacteremia continue Kefzol 2g post dialysis -- End Date 06/05/2020 4. ESRD Nephrology consulted dialysis per nephrology 5. PAF ELiquis renally dosed 6. Mood continue her chronic meds -- appropriate dosing changed by pharmacy (to follow [facility] for clozaril) 7. Chronic hypotension on midodrine -- will continue the same Full Code DVT Aliya solis
[2020-05-23] MEDS: Acetaminophen 325 MG TABLET 650 MG PO (14:29)
[2020-05-23] MEDS: Midodrine HCl 5 MG TABLET PO (17:18)
[2020-05-23] MEDS: cloZAPine 25 MG TABLET 50 MG PO (22:22)
[2020-05-23] MEDS: clonazePAM 0.5 MG TABLET 1.5 MG PO (22:23)
[2020-05-23] MEDS: lamoTRIgine 100 MG TABLET 300 MG PO (22:23)
[2020-05-23] MEDS: Apixaban 2.5 MG TABLET PO (22:24)
[2020-05-23] MEDS: Dronedarone HCl 400 MG TABLET PO (22:30)
--- NOTE | 2020-05-24 | CT_ITS ---
EXAMINATION: CT ABDOMEN AND PELVIS WITHOUT CONTRAST CLINICAL INFORMATION: Abdominal pain COMPARISON: 05/21/2020 TECHNIQUE: Multidetector volumetric imaging was performed from the superior aspect of the liver through the pubic symphysis. Sagittal and coronal reformatted images were obtained on the technologist's workstation. This CT examination was performed using dose optimization techniques as appropriate, variously including the following: *Automated exposure control *Adjustment of mA and/or kV according to patient size (this includes techniques or standardized protocols for targeted exams where dose is matched to indication/reason for exam; i.e. extremities or head) *Use of iterative reconstruction technique DLP: 604 mGy-cm FINDINGS: Mild diffuse anasarca, edema and trace fluid throughout the abdomen and pelvis, and presacral edema has increased. No focal fluid collection. No intestinal obstruction or free intraperitoneal air. Redemonstration of the urinary bladder mass. Innumerable renal cysts, no change. No hydronephrosis. Redemonstration of the heterogeneous left adrenal nodule. IMPRESSION: Anasarca, diffuse edema and trace fluid without the abdomen and pelvis has increased since 05/21/2020. Otherwise no significant change. Redemonstration of the left adrenal mass and the urinary bladder mass. No intestinal obstruction.
--- NOTE | 2020-05-24 00:20 | PC.NURSE ---
BP [id number] PULSE 91,DR. SHEPHERD NOTIFIED,MIDODRINE DOSE HELD
--- NOTE | 2020-05-24 00:22 | PC.NURSE ---
DIALYSIS CATHETER PRESENT IN LEFT CHEST,DRSG CDI,NO REDNESS,NO SWELLING
[2020-05-24] MEDS: 0.9 % Sodium Chloride 1,000 ML 75 ML IVCONT (01:26)
[2020-05-24] MEDS: Omeprazole 40 MG CAPSULE.DR PO ×2 (05:31→16:43)
[2020-05-24] MEDS: Levothyroxine Sodium 125 MCG TABLET PO (05:31)
[2020-05-24 07:36] VITALS: BP 110/65; PULSE 80; RESP 17; TEMP 36.3; O2SAT 92
--- NOTE | 2020-05-24 11:02 | PM.PNNEP ---
Subjective Subjective Interval history: seen and examined C/O mike yadav this am Currently on HD Physical Exam Vital Signs and I&O and Narrative: Vital Signs and I&O: Vital Signs Temp 97.3 F 05/24/20 07:36 Pulse 80 05/24/20 07:36 Resp 17 05/24/20 07:36 BP 110/65 05/24/20 07:36 Pulse Ox 92 05/24/20 07:36 Intake & Output 05/23/20 05/24/20 05/24/20 18:59 06:59 18:59 Intake Total 1070 / 2270 1200 / 2270 Balance 1070 / 2270 1200 / 2270 Intake: Intake, Oral [place] unt 120 / 320 200 / 320 Intake, IV Amoun t 950 / 1950 1000 / 1950 0.9 % Sodium C hloride 1,000 ml 950 / 1950 1000 / 1950 @ 75 mls/hr IV CONT .[id number] [facility] Rx#:[id number] Other: Meal Refused Yes Dinner % Eaten 25% Evening Snack % Eaten 100 Number of Incont inent Voids 1 Body Mass Index 21.6 Const: General: cooperative and no acute distress Orientation/consciousness: patient oriented x3 HENMT: Head: Yes normal to inspection Ears: hearing grossly normal bilaterally General nose exam: Normal external nose present Face and sinus: Yes normal facial exam Eyes: General: appearance normal, both eyes and all related structures Neck: Neck: Yes normal visual inspection and Yes no JVD Chest: Chest palpation & inspection: normal inspection of the chest and normal palpation of entire chest wall Resp: Effort & Inspection: normal respiratory effort Auscultation: clear to auscultation bilaterally Cardio: Jugular venous distension: no JVD Rate: regular rate GI: Inspection: Yes normal to inspection Palpation (GI): Tenderness to palpation present (GI) (No evidence of tenderness) Skin: General skin exam: no rashes or lesions noted Neuro: General: patient oriented x3 Extrem: General: Yes normal to inspection and Yes other (dry sking in bilateral LE ) Psych: Mental Status: mental status grossly normal Assessment & Plan Assessment and plan (1) Diarrhea: Status: Acute (2) Vomiting: Status: Acute (3) C. difficile diarrhea: Status: Acute (4) MSSA bacteremia: Status: Acute (5) GERD (gastroesophageal reflux disease): Status: Acute (6) Seizure: Status: Acute (7) Hypothyroidism: Status: Acute (8) Paroxysmal A-fib: Status: Acute (9) Bipolar disorder: Status: Acute (10) COPD (chronic obstructive pulmonary disease): Status: Acute (11) ESRD (end stage renal disease): Status: Acute Assessment and Plan: 1. ESRD: mwf 2. MSSA recrrent: last adm Pcath repalced; cont anceph after HD..? duration 3. N/V/diarrhea: c.diff 4. Deconditioned 5. Abd pain increased: needs furhter eval REC: cont HD; meds as noted;? need for CT of abd givne h/o SBO and now incr abd pain; ABx continuation to complete Tx course for MSSA will follow with team Time Spent With Patient Time: Total time spent is greater than 50% in coordination of care (as documented) at patient's floor/unit and/or counseling patient:
[2020-05-24 11:51] VITALS: BP 104/65; PULSE 89
[2020-05-24] MEDS: Midodrine HCl 5 MG TABLET PO ×3 (11:51→20:15)
[2020-05-24] MEDS: LORazepam 2 MG/ML VIAL 0.25 MG IVPUSH (11:52)
[2020-05-24] MEDS: Acetaminophen 325 MG TABLET 650 MG PO (11:52)
[2020-05-24] MEDS: 0.9 % Sodium Chloride Flush 3 ML SYRINGE 2 ML IVFLUSH ×2 (11:53→16:29)
--- NOTE | 2020-05-24 15:12 | PM.IMPN ---
Subjective Subjective Date of Service: 05/24/20 Interval History: seen and examined this AM during dialysis complained of abdominal pain no vomiting, reports nausea Physical Exam Vital Signs and I&O and Narrative: Vital Signs and I&O: Vital Signs Temp 97.3 F 05/24/20 07:36 Pulse 89 05/24/20 11:51 Resp 17 05/24/20 07:36 BP 104/65 05/24/20 11:51 Pulse Ox 92 05/24/20 07:36 Intake & Output 05/23/20 05/24/20 05/24/20 18:59 06:59 18:59 Intake Total 1070 / 2270 1200 / 2270 180 / 180 Balance 1070 / 2270 1200 / 2270 180 / 180 Intake: Intake, Oral [place] unt 120 / 320 200 / 320 180 / 180 Intake, IV Amoun t 950 / 1950 1000 / 1950 0.9 % Sodium C hloride 1,000 ml 950 / 1950 1000 / 1950 @ 75 mls/hr IV CONT .[id number] [facility] Rx#:[id number] Other: Meal Refused Yes Breakfast % Eate n 0% Lunch % Eaten 25% Dinner % Eaten 25% Evening Snack % Eaten 100 Number of Incont inent Voids 1 Body Mass Index 21.6 General - no acute distress, appears comfortable Cardiovascular - regular rate and rhythm, S1-S2 Lungs - normal respiratory effort, clear to auscultation bilaterally, no wheezing Abdomen - abdomen soft, diffuse tenderness -- no rebound or guarding, +BS, not distended Extremities - no edema bilaterally Neuro - awake and alert, no focal deficits Objective Data Current Medications Generic Name Dose Route Start Last Admin Trade Name Barbara PRN Reason Stop Dose Admin Acetaminophen 650 mg 05/22/20 09:13 05/24/20 11:52 Acetaminophen 325 Mg Tablet PO 650 mg BID PRN Administration Pain (Scale Score 1-3) Apixaban 2.5 mg 05/22/20 09:00 05/24/20 14:38 Apixaban 2.5 Mg Tablet PO Not Given BID [facility] Clonazepam 1.5 mg 05/22/20 21:00 05/23/20 22:23 Clonazepam 0.5 Mg Tablet PO 1.5 mg BEDTIME [facility] Administration Clozapine 50 mg 05/22/20 21:00 05/23/20 22:22 Clozapine 25 Mg Tablet PO 50 mg BEDTIME [facility] Administration Dronedarone 400 mg 05/22/20 09:00 05/24/20 14:39 Dronedarone Hcl 400 Mg Tablet PO Not Given BID [facility] Fluticasone/Vilanterol 1 puff 05/23/20 08:00 Fluticasone/Vilanterol 200/25 Blst.W.Dev INHALE RDAILY [facility] Hydroxyzine HCl 50 mg 05/22/20 09:51 Hydroxyzine Hcl 50 Mg Tablet PO BEDTIME PRN Sleep Cefazolin Sodium/Dextrose 2 gm in 50 mls @ 100 mls/hr 05/22/20 16:45 05/22/20 19:49 Ancef IV Infused MOWEFR@1645 [facility] Infusion Lamotrigine 300 mg 05/22/20 21:00 05/23/20 22:23 Lamotrigine 100 Mg Tablet PO 300 mg BEDTIME [facility] Administration Levothyroxine Sodium 125 mcg 05/22/20 06:30 05/24/20 05:31 Levothyroxine Sodium 125 Mcg Tablet PO 125 mcg DAILY@0630 [facility] Administration Lorazepam 0.25 mg 05/23/20 13:53 05/24/20 11:52 Lorazepam 2 Mg/Ml Vial IVPUSH 0.25 mg Q6H PRN Administration Nausea and Vomiting Midodrine 5 mg 05/22/20 09:00 05/24/20 14:38 Midodrine Hcl 5 Mg Tablet PO 5 mg TID [facility] Administration Omeprazole 40 mg 05/22/20 06:30 05/24/20 05:31 Omeprazole 40 Mg Capsule.Dr PO 40 mg BID@0630,1630 [facility] Administration Sevelamer HCl 800 mg 05/22/20 15:00 05/24/20 15:00 Sevelamer Hcl 800 Mg Tablet PO Not Given TID [facility] Sodium Chloride 2 ml 05/22/20 00:14 05/24/20 11:53 0.9 % Sodium Chloride Flush 3 Ml Syringe IVFLUSH 2 ml QSHIFT [facility] Administration Tramadol HCl 25 mg 05/24/20 15:09 Tramadol Hcl 50 Mg Tablet PO Q6H PRN Pain, Severe (Pain Scale 7-10) Vancomycin HCl 125 mg 05/22/20 19:00 05/24/20 14:38 Vancomycin Hcl 125 Mg/5 Ml Soln.Recon PO 125 mg Q6H [facility] Administration Labs CBC & Chem 7: 05/23/20 06:13 05/23/20 06:13 Microbiology Microbiology Results: Microbiology 05/21/20 16:10 Blood - Venous Blood Culture - Preliminary No growth after 48 hours. 05/21/20 16:10 Blood - Venous Blood Culture - Preliminary No growth after 48 hours. Progress Note: A&P (1) Diarrhea: Status: Acute (2) Vomiting: Status: Acute (3) C. difficile diarrhea: Status: Acute (4) MSSA bacteremia: Status: Acute (5) GERD (gastroesophageal reflux disease): Status: Acute (6) Seizure: Status: Acute (7) Hypothyroidism: Status: Acute (8) Paroxysmal A-fib: Status: Acute (9) Bipolar disorder: Status: Acute (10) COPD (chronic obstructive pulmonary disease): Status: Acute (11) ESRD (end stage renal disease): Status: Acute Assessment and Plan: This is a 74-year-old female well known to the hospitalist service who is presenting to the hospital with complaints of nausea and vomiting. She does have a history of recurrent partial / complete small-bowel obstructions which fortunately is not evident on the CT scan. She is admitted for further workup 1. C. diff colitis PO vancomcyin day #3 ID in put appreciated 2. nausea and vomiting intermittent, still with poor oral intake repeat ct done -- not significantly changed from admission CT, some swelling noted. 3. Recent MSSA Bacteremia continue Kefzol 2g post dialysis -- End Date 06/05/2020 4. ESRD Nephrology consulted dialysis per nephrology 5. PAF ELiquis renally dosed 6. Mood continue her chronic meds -- appropriate dosing changed by pharmacy (to follow [facility] for clozaril) 7. Chronic hypotension on midodrine -- will continue the same Full Code DVT franniex, Aliya
[2020-05-24 15:17] VITALS: BP 174/82; PULSE 92; RESP 18; TEMP 36.4; O2SAT 95
[2020-05-24] MEDS: traMADoL HCL 50 MG TABLET 25 MG PO (16:42)
[2020-05-24] MEDS: ceFAZolin Sodium/Dextrose,Iso 2 GM/50 ML PIGGYBACK IV (16:43)
[2020-05-24] MEDS: cloZAPine 25 MG TABLET 50 MG PO (20:14)
[2020-05-24] MEDS: lamoTRIgine 100 MG TABLET 300 MG PO (20:14)
[2020-05-24] MEDS: Dronedarone HCl 400 MG TABLET PO (20:14)
[2020-05-24] MEDS: hydrOXYzine HCL 50 MG TABLET PO (20:15)
[2020-05-24] MEDS: Apixaban 2.5 MG TABLET PO (20:15)
[2020-05-24] MEDS: clonazePAM 0.5 MG TABLET 1.5 MG PO (20:15)
[2020-05-24 23:46] VITALS: BP 141/80; PULSE 97; RESP 20; TEMP 36.8; O2SAT 94
[2020-05-25] MEDS: 0.9 % Sodium Chloride Flush 3 ML SYRINGE 2 ML IVFLUSH ×3 (00:32→18:09)
[2020-05-25] MEDS: Omeprazole 40 MG CAPSULE.DR PO ×2 (05:56→18:09)
[2020-05-25] MEDS: Levothyroxine Sodium 125 MCG TABLET PO (05:56)
[2020-05-25] MEDS: traMADoL HCL 50 MG TABLET 25 MG PO ×2 (06:06→14:24)
[2020-05-25 08:00] VITALS: BP 125/54; PULSE 97; RESP 19; TEMP 36.8; O2SAT 94
[2020-05-25 08:56] LABS: Basophils Percent Auto 0.3 % (0-2); Eosinophils Absolute Auto 0.3 X10*3/uL (0.0-0.4); Eosinophils Percent Auto 2.7 % (0-4); Hematocrit 32.7 % (37-47); Hemoglobin 9.9 g/dl (12.0-16.0); Imm Gran Abs Auto 0.06 X10*3/uL (0.00-0.03); Imm Gran Pct Auto 0.5 % (0.0-0.4); Lymphocytes Absolute Auto 0.8 X10*3/uL (1.2-4.9); Lymphocytes Percent Auto 6.5 % (20-40); MANUAL DIFF FLAG SCAN; Mean Corpuscular HGB Conc 30.3 g/dl (31.0-35.0); Mean Corpuscular Hemoglobin 29.9 pg (27.0-33.0); Mean Corpuscular Volume 98.8 fL (80-98); Mean Platelet Volume 9.5 fL (9.4-12.3); Monocytes Absolute Auto 1.7 X10*3/uL (0.1-1.2); Monocytes Percent Auto 14.6 % (2-11); Neutrophils Absolute Auto 8.9 X10*3/uL (2.0-8.3); Neutrophils Percent Auto 75.4 % (45-73); Platelet Count 254 X10*3/uL (160-400); Red Blood Count 3.31 X10*6/uL (4.20-5.50); Red Cell Distribution Width 16.7 % (11.0-16.0); SCAN SMEAR FLAG 1; White Blood Count 11.8 X10*3/uL (4.8-10.8)
--- NOTE | 2020-05-25 09:16 | P.PNIM_ITS ---
Subjective Subjective Date of Service: 05/25/20 Interval History: seen and examined this Am abdominal pain less unclear how much she is eating, but doesnt appear to be much per RN repots, diarrhea resolved Review of Systems General - no fevers or chills Cardiovascular - no chest pain Respiratory - no shortness of breath or cough Abdominal- pain less, still not eating much Physical Exam Vital Signs and I&O and Narrative: Vital Signs and I&O: Vital Signs Temp 98.2 F 05/25/20 08:00 Pulse 97 05/25/20 08:00 Resp 19 05/25/20 08:00 BP 125/54 L 05/25/20 08:00 Pulse Ox 94 05/25/20 08:00 Intake & Output 05/24/20 05/25/20 05/25/20 18:59 06:59 18:59 Intake Total 1230 / 1610 380 / 1610 Balance 1230 / 1610 380 / 1610 Intake: Intake, Oral [place] unt 180 / 560 380 / 560 Intake, IV Amoun t 1050 / 1050 ceFAZolin Sodi um/Dextrose,Iso 2 50 / 50 gm In 50 ml @ 100 mls/hr IV MOWEFR@1645 [facility] Rx#:[id number] 0.9 % Sodium C hloride 1,000 ml 1000 / 1000 @ 75 mls/hr IV CONT .[id number] [facility] Rx#:[id number] Other: Breakfast % Eate n 0% Lunch % Eaten 25% Body Mass Index 21.6 General - no acute distress, appears comfortable Cardiovascular - regular rate and rhythm, S1-S2 Lungs - normal respiratory effort, clear to auscultation bilaterally, no wheezing Abdomen - less tender, no rebound, +bs Extremities - no edema bilaterally Neuro - awake and alert, no focal deficits Objective Data Current Medications Generic Name Dose Route Start Last Admin Trade Name Freq PRN Reason Stop Dose Admin Acetaminophen 650 mg 05/22/20 09:13 05/24/20 11:52 Acetaminophen 325 Mg Tablet PO 650 mg BID PRN Administration Pain (Scale Score 1-3) Apixaban 2.5 mg 05/22/20 09:00 05/24/20 20:15 Apixaban 2.5 Mg Tablet PO 2.5 mg BID [facility] Administration Clonazepam 1.5 mg 05/22/20 21:00 05/24/20 20:15 Clonazepam 0.5 Mg Tablet PO 1.5 mg BEDTIME [facility] Administration Clozapine 50 mg 05/22/20 21:00 05/24/20 20:14 Clozapine 25 Mg Tablet PO 50 mg BEDTIME [facility] Administration Dronedarone 400 mg 05/22/20 09:00 05/24/20 20:14 Dronedarone Hcl 400 Mg Tablet PO 400 mg BID [facility] Administration Fluticasone/Vilanterol 1 puff 05/23/20 08:00 05/24/20 17:59 Fluticasone/Vilanterol 200/25 Blst.W.Dev INHALE Not Given RDAILY [facility] Hydroxyzine HCl 50 mg 05/22/20 09:51 05/24/20 20:15 Hydroxyzine Hcl 50 Mg Tablet PO 50 mg BEDTIME PRN Administration Sleep Cefazolin Sodium/Dextrose 2 gm in 50 mls @ 100 mls/hr 05/22/20 16:45 05/24/20 17:25 Ancef IV Infused MOWEFR@1645 [facility] Infusion Lamotrigine 300 mg 05/22/20 21:00 05/24/20 20:14 Lamotrigine 100 Mg Tablet PO 300 mg BEDTIME [facility] Administration Levothyroxine Sodium 125 mcg 05/22/20 06:30 05/25/20 05:56 Levothyroxine Sodium 125 Mcg Tablet PO 125 mcg DAILY@0630 [facility] Administration Lorazepam 0.25 mg 05/23/20 13:53 05/24/20 11:52 Lorazepam 2 Mg/Ml Vial IVPUSH 0.25 mg Q6H PRN Administration Nausea and Vomiting Midodrine 5 mg 05/22/20 09:00 05/24/20 20:15 Midodrine Hcl 5 Mg Tablet PO 5 mg TID [facility] Administration Omeprazole 40 mg 05/22/20 06:30 05/25/20 05:56 Omeprazole 40 Mg Capsule.Dr PO 40 mg BID@0630,1630 [facility] Administration Sevelamer HCl 800 mg 05/22/20 15:00 05/24/20 20:15 Sevelamer Hcl 800 Mg Tablet PO 800 mg TID [facility] Administration Sodium Chloride 2 ml 05/22/20 00:14 05/25/20 00:32 0.9 % Sodium Chloride Flush 3 Ml Syringe IVFLUSH 2 ml QSHIFT [facility] Administration Tramadol HCl 25 mg 05/24/20 15:09 05/25/20 06:06 Tramadol Hcl 50 Mg Tablet PO 25 mg Q6H PRN Administration Pain, Severe (Pain Scale 7-10) Vancomycin HCl 125 mg 05/22/20 19:00 05/25/20 06:03 Vancomycin Hcl 125 Mg/5 Ml Soln.Recon PO 125 mg Q6H [facility] Administration Labs CBC & Chem 7: 05/25/20 08:19 05/23/20 06:13 Labs: Laboratory Results - last 24 hr 05/25/20 08:19 MCV 98.8 H MCH 29.9 MCHC 30.3 L RDW 16.7 H Plt Count 254 MPV 9.5 Immature Gran % (Auto) 0.5 H Neut % (Auto) 75.4 H Lymph % (Auto) 6.5 L [place] % (Auto) 14.6 H Eos % (Auto) 2.7 Baso % (Auto) 0.3 Lymph # (Auto) 0.8 L [place] # (Auto) 1.7 H Eos # (Auto) 0.3 Baso # (Auto) 0.0 Abs Immat Gran (auto) 0.06 H Absolute Neuts (auto) 8.9 H Absolute Nucleated RBC 0.000 Nucleated RBC % (auto) 0.0 Microbiology Microbiology Results: Microbiology 05/21/20 16:10 Blood - Venous Blood Culture - Preliminary No growth after 48 hours. 05/21/20 16:10 Blood - Venous Blood Culture - Preliminary No growth after 48 hours. Progress Note: A&P (1) Diarrhea: Status: Acute (2) Vomiting: Status: Acute (3) C. difficile diarrhea: Status: Acute (4) MSSA bacteremia: Status: Acute (5) GERD (gastroesophageal reflux disease): Status: Acute (6) Seizure: Status: Acute (7) Hypothyroidism: Status: Acute (8) Paroxysmal A-fib: Status: Acute (9) Bipolar disorder: Status: Acute (10) COPD (chronic obstructive pulmonary disease): Status: Acute (11) ESRD (end stage renal disease): Status: Acute Assessment and Plan: This is a 74-year-old female well known to the hospitalist service who is presenting to the hospital with complaints of nausea and vomiting. She does have a history of recurrent partial / complete small-bowel obstructions which fortunately is not evident on the CT scan. She is admitted for further workup 1. C. diff colitis PO vancomcyin day #4 ID in put appreciated 2. nausea and vomiting repeat ct not showing much change from admission continue with supportive care 3. Recent MSSA Bacteremia continue Kefzol 2g post dialysis -- End Date 06/05/2020 4. ESRD Nephrology consulted dialysis per nephrology 5. PAF ELiquis renally dosed 6. Mood continue her chronic meds -- appropriate dosing changed by pharmacy (to follow ANC for clozaril) 7. Chronic hypotension on midodrine -- will continue the same 8. Bladder mass R sided bladder mass outpatient cysto -- patient and Neptali informed Full Code DVT pptx, Eliquis
[2020-05-25 09:17] LABS: Anion Gap 14 (12-20); Blood Urea Nitrogen 16 mg/dL (9-16); Calcium 8.5 mg/dL (8.4-10.2); Carbon Dioxide 19 mmol/L (22-29); Chloride 106 mmol/L (96-108); Creatinine Clr Calc Pharmacy 13.3; Estimated Glomerular Filt Rate 14; Potassium 3.8 mmol/l (3.3-5.1); Sodium 135 mmol/L (135-145)
[2020-05-25 09:24] LABS: SLIDE REVIEW VERIFIED
[2020-05-25 09:33] LABS: Glucose Fasting 42 mg/dL (60-99)
[2020-05-25 10:24] LABS: Glucose, Whole Blood 47 mg/dL (60-115)
[2020-05-25] MEDS: Midodrine HCl 5 MG TABLET PO ×3 (10:43→23:02)
[2020-05-25] MEDS: Apixaban 2.5 MG TABLET PO ×2 (10:43→23:00)
[2020-05-25] MEDS: Dronedarone HCl 400 MG TABLET PO ×2 (10:44→23:00)
[2020-05-25 10:46] LABS: Glucose, Whole Blood 198 mg/dL (60-115)
--- NOTE | 2020-05-25 12:04 | P.PNNP_ITS ---
Subjective Subjective Interval history: seen and examined this Am overall feeling bettter but still not ready to go home per PT abdominal pain less unclear how much she is eating, but doesnt appear to be much per RN repots, diarrhea resolved Physical Exam Vital Signs and I&O and Narrative: Vital Signs and I&O: Vital Signs Temp 98.2 F 05/25/20 08:00 Pulse 97 05/25/20 08:00 Resp 19 05/25/20 08:00 BP 125/54 L 05/25/20 08:00 Pulse Ox 94 05/25/20 08:00 Intake & Output 05/24/20 05/25/20 05/25/20 18:59 06:59 18:59 Intake Total 1230 / 1610 380 / 1610 Balance 1230 / 1610 380 / 1610 Intake: Intake, Oral [place] unt 180 / 560 380 / 560 Intake, IV Amoun t 1050 / 1050 ceFAZolin Sodi um/Dextrose,Iso 2 50 / 50 gm In 50 ml @ 100 mls/hr IV MOWEFR@1645 [facility] Rx#:[id number] 0.9 % Sodium C hloride 1,000 ml 1000 / 1000 @ 75 mls/hr IV CONT .[id number] HERNESTO Rx#:[id number] Other: Breakfast % Eate n 0% Lunch % Eaten 25% Body Mass Index 21.6 Const: General: cooperative and no acute distress Orientation/consciousness: patient oriented x3 HENMT: Head: Yes normal to inspection Ears: hearing grossly normal bilaterally General nose exam: Normal external nose present Face and sinus: Yes normal facial exam Eyes: General: appearance normal, both eyes and all related structures Neck: Neck: Yes normal visual inspection and Yes no JVD Chest: Chest palpation & inspection: normal inspection of the chest and normal palpation of entire chest wall Resp: Effort & Inspection: normal respiratory effort Auscultation: clear to auscultation bilaterally Cardio: Jugular venous distension: no JVD Rate: regular rate GI: Inspection: Yes normal to inspection Palpation (GI): Tenderness to palpation present (GI) (No evidence of tenderness) Skin: General skin exam: no rashes or lesions noted Neuro: General: patient oriented x3 Extrem: General: Yes normal to inspection and Yes other (dry sking in bilateral LE ) Psych: Mental Status: mental status grossly normal Assessment & Plan Assessment and plan (1) Diarrhea: Status: Acute (2) Vomiting: Status: Acute (3) C. difficile diarrhea: Status: Acute (4) MSSA bacteremia: Status: Acute (5) GERD (gastroesophageal reflux disease): Status: Acute (6) Seizure: Status: Acute (7) Hypothyroidism: Status: Acute (8) Paroxysmal A-fib: Status: Acute (9) Bipolar disorder: Status: Acute (10) COPD (chronic obstructive pulmonary disease): Status: Acute (11) ESRD (end stage renal disease): Status: Acute Assessment and Plan: 1. ESRD: mwf 2. MSSA recrrent: last adm Pcath repalced; cont anceph // after HD..? duration 3. N/V/diarrhea:..diarrhea resolved, c.diff 4. Deconditioned 5. Abd pain increased: CT yest noited..no explanation for pian 6. Bladder mass on CT REC: urol consutl re: bladder mass ?, cont HD; meds as noted; ABx continuation to complete Tx course for MSSA will follow with team Time Spent With Patient Time: Total time spent is greater than 50% in coordination of care (as documented) at patient's floor/unit and/or counseling patient:
--- NOTE | 2020-05-25 13:16 | MHC.CM.PN ---
nurse child care counselor note electronic medical record reviewed patient is stil not taking any
--- NOTE | 2020-05-25 13:19 | MHC.CM.PN ---
nurse hearing healthcare practitioner note electronic medical record reviewed case discussed with staff nurse and on multiple disciplainry rounds. patient is having ess diarrheea , but is still not taking in much food orally patient continues n iv abx monitor labs and continues hemodialysis [id number]. discharge plan home with the yeni schaefer for nursing , home physical thearpy resump[tion of her hemodialysis at [facility] [phone] [facility]
[2020-05-25] MEDS: Dextrose 5 % and 0.45 % NaCl 1,000 ML 42 ML IVCONT (13:58)
[2020-05-25 15:31] VITALS: BP 119/60; PULSE 89; RESP 20; TEMP 36.6; O2SAT 93
[2020-05-25 16:44] LABS: Glucose, Whole Blood 71 mg/dL (60-115)
[2020-05-25 21:58] LABS: Glucose, Whole Blood 83 mg/dL (60-115)
[2020-05-25] MEDS: LORazepam 2 MG/ML VIAL 0.25 MG IVPUSH (22:24)
[2020-05-25] MEDS: lamoTRIgine 100 MG TABLET 300 MG PO (23:00)
[2020-05-25] MEDS: cloZAPine 25 MG TABLET 50 MG PO (23:01)
[2020-05-25] MEDS: clonazePAM 0.5 MG TABLET 1.5 MG PO (23:01)
[2020-05-26] VITALS: BP 145/72; PULSE 88; RESP 20; TEMP 37.7; O2SAT 95
[2020-05-26 02:22] LABS: Glucose, Whole Blood 94 mg/dL (60-115)
[2020-05-26 04:43] VITALS: TEMP 35.8
[2020-05-26] MEDS: Levothyroxine Sodium 125 MCG TABLET PO (06:36)
[2020-05-26] MEDS: Omeprazole 40 MG CAPSULE.DR PO ×2 (06:36→16:47)
[2020-05-26 07:23] VITALS: BP 121/66; PULSE 89; RESP 19; TEMP 36.6; O2SAT 94
[2020-05-26 07:31] LABS: Glucose, Whole Blood 94 mg/dL (60-115)
[2020-05-26 08:02] LABS: Glucose, Whole Blood 80 mg/dL (60-115)
--- NOTE | 2020-05-26 11:31 | PM.PNNEP ---
Subjective Subjective Interval history: seen and examined this Am overall feeling bettter but still not ready to go home per PT cont abdominal pain and N/V unclear how much she is eating, but doesnt appear to be much per RN repots, diarrhea resolved currently on HD Physical Exam Vital Signs and I&O and Narrative: Vital Signs and I&O: Vital Signs Temp 97.8 F 05/26/20 07:23 Pulse 89 05/26/20 07:23 Resp 19 05/26/20 07:23 BP 121/66 05/26/20 07:23 Pulse Ox 94 05/26/20 07:23 Intake & Output 05/25/20 05/26/20 05/26/20 18:59 06:59 18:59 Intake Total 180 / 230 50 / 230 Output Total 150 / 450 300 / 450 Balance 30 / -220 -250 / -220 Urine Output (Aver age ml/kg/hr) 0.00 Intake: Intake, Oral [place] unt 180 / 230 50 / 230 Output: Output, Urine Am ount 0 / 0 Output, Emesis A mount 150 / 450 300 / 450 Other: Meal Refused Yes NPO No No Breakfast % Eate n 0% Lunch % Eaten 0% Dinner % Eaten 0% Emesis Color Brown Body Mass Index 21.6 Const: General: cooperative and no acute distress Orientation/consciousness: patient oriented x3 HENMT: Head: Yes normal to inspection Ears: hearing grossly normal bilaterally General nose exam: Normal external nose present Face and sinus: Yes normal facial exam Eyes: General: appearance normal, both eyes and all related structures Neck: Neck: Yes normal visual inspection and Yes no JVD Chest: Chest palpation & inspection: normal inspection of the chest and normal palpation of entire chest wall Resp: Effort & Inspection: normal respiratory effort Auscultation: clear to auscultation bilaterally Cardio: Jugular venous distension: no JVD Rate: regular rate GI: Inspection: Yes normal to inspection Palpation (GI): Tenderness to palpation present (GI) (No evidence of tenderness) Skin: General skin exam: no rashes or lesions noted Neuro: General: patient oriented x3 Extrem: General: Yes normal to inspection and Yes other (dry sking in bilateral LE ) Psych: Mental Status: mental status grossly normal Assessment & Plan Assessment and plan (1) Diarrhea: Status: Acute (2) Vomiting: Status: Acute (3) C. difficile diarrhea: Status: Acute (4) MSSA bacteremia: Status: Acute (5) ESRD (end stage renal disease): Status: Acute (6) GERD (gastroesophageal reflux disease): Status: Acute (7) Seizure: Status: Acute (8) Hypothyroidism: Status: Acute (9) Paroxysmal A-fib: Status: Acute (10) Bipolar disorder: Status: Acute (11) COPD (chronic obstructive pulmonary disease): Status: Acute Assessment and Plan: 1. ESRD: mwf 2. MSSA recrrent: last adm Pcath repalced; cont anceph 2/2/3 after HD..? duration 3. N/V/diarrhea:..diarrhea resolved, c.diff 4. Deconditioned 5. Abd pain and N/V: CT noted..no explanation for pain 6. Bladder mass on CT REC: urol consutl re: bladder mass ?, cont HD; meds as noted; ABx continuation to complete Tx course for MSSA; consider GI cons will follow with team Time Spent With Patient Time: Total time spent is greater than 50% in coordination of care (as documented) at patient's floor/unit and/or counseling patient:
[2020-05-26 12:41] LABS: Glucose, Whole Blood 84 mg/dL (60-115)
[2020-05-26] MEDS: Dextrose 5 % and 0.45 % NaCl 1,000 ML 42 ML IVCONT (12:57)
--- NOTE | 2020-05-26 12:58 | MHC.CM.PN ---
nurse customer care consultant note electronic medical record reviewed along with case discussed on patient rounds .,patient is still complaining of abdominal pain and some nausea and emesis x1 last 24 hours, her oral intake is only 25 % with meals , plan continue iv fluids and iv antibiotics ,monitor all labs , update given to the yeni schaefer patient per documentation:( has a bilateral stage 1 bilateral buttock area open to air)
[2020-05-26 15:32] VITALS: BP 119/61; PULSE 96; RESP 18; TEMP 37.2; O2SAT 94
--- NOTE | 2020-05-26 15:59 | PM.IMPN ---
Subjective Subjective Date of Service: 05/26/20 Interval History: Seen and examined this morning and dialysis. Reported abdominal pain and nausea at that time Seen this afternoon with has in bed that. She reports that she was able to tolerate breakfast and lunch. Review of Systems General - no fevers or chills Cardiovascular - no chest pain Respiratory - no shortness of breath or cough Abdominal- n/v/pain; no diarrhea Physical Exam Vital Signs and I&O and Narrative: Vital Signs and I&O: Vital Signs Temp 98.9 F 05/26/20 15:32 Pulse 96 05/26/20 15:32 Resp 18 05/26/20 15:32 BP 119/61 05/26/20 15:32 Pulse Ox 94 05/26/20 15:32 Intake & Output 05/25/20 05/26/20 05/26/20 18:59 06:59 18:59 Intake Total 180 / 230 50 / 230 1055.3 / 1055.3 Output Total 150 / 450 300 / 450 200 / 200 Balance 30 / -220 -250 / -220 855.3 / 855.3 Urine Output (Aver age ml/kg/hr) 0.00 0.30 Intake: Intake, Oral [place] unt 180 / 230 50 / 230 90 / 90 Intake, IV Amoun t 965.3 / 965.3 Dextrose 5 % a nd 0.45 % NaCl 1, 965.3 / 965.3 000 ml @ 42 ml s/hr IVCONT . [id number] [facility] Rx #:[id number] Output: Output, Urine Am ount 0 / 0 200 / 200 Output, Emesis A mount 150 / 450 300 / 450 Other: Meal Refused Yes Yes NPO No No No Breakfast % Eate n 0% 0% Lunch % Eaten 0% 0% Dinner % Eaten 0% Urine Bedpan Urine Color Cloudy Emesis Color Brown Body Mass Index 21.6 General - no acute distress, appears comfortable Cardiovascular - regular rate and rhythm, S1-S2 Lungs - normal respiratory effort, clear to auscultation bilaterally, no wheezing Abdomen - soft, + tenderness without rebound / guarding Extremities - no edema bilaterally Neuro - awake and alert, no focal deficits Objective Data Current Medications Generic Name Dose Route Start Last Admin Trade Name Freq PRN Reason Stop Dose Admin Acetaminophen 650 mg 05/22/20 09:13 05/24/20 11:52 Acetaminophen 325 Mg Tablet PO 650 mg BID PRN Administration Pain (Scale Score 1-3) Apixaban 2.5 mg 05/22/20 09:00 05/26/20 07:59 Apixaban 2.5 Mg Tablet PO Not Given BID HERNESTO Clonazepam 1.5 mg 05/22/20 21:00 05/25/20 23:01 Clonazepam 0.5 Mg Tablet PO 1.5 mg BEDTIME HERNESTO Administration Clozapine 50 mg 05/22/20 21:00 05/25/20 23:01 Clozapine 25 Mg Tablet PO 50 mg BEDTIME HERNESTO Administration Dronedarone 400 mg 05/22/20 09:00 05/26/20 07:59 Dronedarone Hcl 400 Mg Tablet PO Not Given BID HERNESTO Fluticasone/Vilanterol 1 puff 05/23/20 08:00 05/26/20 15:39 Fluticasone/Vilanterol 200/25 Blst.W.Dev INHALE Not Given RDAILY HERNESTO Hydroxyzine HCl 50 mg 05/22/20 09:51 05/24/20 20:15 Hydroxyzine Hcl 50 Mg Tablet PO 50 mg BEDTIME PRN Administration Sleep Cefazolin Sodium/Dextrose 2 gm in 50 mls @ 100 mls/hr 05/22/20 16:45 05/24/20 17:25 Ancef IV Infused MOWEFR@1645 HERNESTO Infusion Dextrose/Sodium Chloride 1,000 mls @ 42 mls/hr 05/25/20 11:45 05/26/20 12:57 D51/2ns IVCONT 42 mls/hr .[id number] HERNESTO Administration Lamotrigine 300 mg 05/22/20 21:00 05/25/20 23:00 Lamotrigine 100 Mg Tablet PO 300 mg BEDTIME HERNESTO Administration Levothyroxine Sodium 125 mcg 05/22/20 06:30 05/26/20 06:36 Levothyroxine Sodium 125 Mcg Tablet PO 125 mcg DAILY@0630 HER[facility]STO Administration Lorazepam 0.25 mg 05/23/20 13:53 05/25/20 22:24 Lorazepam 2 Mg/Ml Vial IVPUSH 0.25 mg Q6H PRN Administration Nausea and Vomiting Midodrine 5 mg 05/22/20 09:00 05/26/20 07:59 Midodrine Hcl 5 Mg Tablet PO Not Given TID HERNESTO Omeprazole 40 mg 05/22/20 06:30 05/26/20 06:36 Omeprazole 40 Mg Capsule.Dr PO 40 mg BID@0630,1630 [facility] Administration Sevelamer HCl 800 mg 05/22/20 15:00 05/26/20 08:00 Sevelamer Hcl 800 Mg Tablet PO Not Given TID [facility] Sodium Chloride 2 ml 05/22/20 00:14 05/26/20 07:58 0.9 % Sodium Chloride Flush 3 Ml Syringe IVFLUSH Not Given QSHIFT HERNESTO Tramadol HCl 25 mg 05/24/20 15:09 05/25/20 14:24 Tramadol Hcl 50 Mg Tablet PO 25 mg Q6H PRN Administration Pain, Severe (Pain Scale 7-10) Vancomycin HCl 125 mg 05/22/20 19:00 05/26/20 13:00 Vancomycin Hcl 125 Mg/5 Ml Soln.Recon PO 125 mg Q6H HERNESTO Administration Labs CBC & Chem 7: 05/25/20 08:19 05/25/20 08:19 Labs: Laboratory Results - last 24 hr 05/25/20 05/25/20 05/26/20 16:33 21:53 02:17 POC Glucose 71 83 94 05/26/20 05/26/20 05/26/20 02:17 07:20 12:36 POC Glucose 94 80 84 Microbiology Microbiology Results: Microbiology 05/21/20 16:10 Blood - Venous Blood Culture - Preliminary No growth after 48 hours. 05/21/20 16:10 Blood - Venous Blood Culture - Preliminary No growth after 48 hours. Progress Note: A&P (1) Diarrhea: Status: Acute (2) Vomiting: Status: Acute (3) C. difficile diarrhea: Status: Acute (4) MSSA bacteremia: Status: Acute (5) GERD (gastroesophageal reflux disease): Status: Acute (6) Seizure: Status: Acute (7) Hypothyroidism: Status: Acute (8) Paroxysmal A-fib: Status: Acute (9) Bipolar disorder: Status: Acute (10) COPD (chronic obstructive pulmonary disease): Status: Acute (11) ESRD (end stage renal disease): Status: Acute Assessment and Plan: This is a 74-year-old female well known to the hospitalist service who is presenting to the hospital with complaints of nausea and vomiting. She does have a history of recurrent partial / complete small-bowel obstructions which fortunately is not evident on the CT scan. She is admitted for further workup 1. C. diff colitis PO vancomcyin day #12/25 ID in put appreciated 2. nausea and vomiting repeat ct not showing much change from admission continue with supportive care will consult GI 3. Recent MSSA Bacteremia continue Kefzol 2g post dialysis -- End Date 06/05/2020 4. ESRD Nephrology consulted dialysis per nephrology 5. PAF Eliquis renally dosed 6. Mood continue her chronic meds 7. Chronic hypotension on midodrine -- will continue the same 8. Bladder mass R sided bladder mass outpatient cysto -- patient and Neptali informed Full Code DVT pptx, Aliya
[2020-05-26] MEDS: LORazepam 2 MG/ML VIAL 0.25 MG IVPUSH (16:42)
[2020-05-26 16:48] VITALS: BP 119/61; PULSE 100
[2020-05-26] MEDS: Midodrine HCl 5 MG TABLET PO (16:48)
[2020-05-26 17:10] LABS: Glucose, Whole Blood 80 mg/dL (60-115)
[2020-05-26] MEDS: ceFAZolin Sodium/Dextrose,Iso 2 GM/50 ML PIGGYBACK IV (20:29)
[2020-05-26] MEDS: cloZAPine 25 MG TABLET 50 MG PO (20:31)
[2020-05-26] MEDS: lamoTRIgine 100 MG TABLET 300 MG PO (20:31)
[2020-05-26] MEDS: Dronedarone HCl 400 MG TABLET PO (20:32)
[2020-05-26] MEDS: Apixaban 2.5 MG TABLET PO (20:32)
[2020-05-26] MEDS: clonazePAM 0.5 MG TABLET 1.5 MG PO (20:33)
[2020-05-26 21:11] LABS: Glucose, Whole Blood 101 mg/dL (60-115)
[2020-05-26 23:53] VITALS: BP 115/54; PULSE 90; RESP 20; TEMP 36.4; O2SAT 97
[2020-05-27 06:00] VITALS: BMI 23.7
[2020-05-27] MEDS: Levothyroxine Sodium 125 MCG TABLET PO (06:45)
[2020-05-27] MEDS: Omeprazole 40 MG CAPSULE.DR PO ×2 (06:46→16:41)
[2020-05-27 07:25] VITALS: BP 122/66; PULSE 80; RESP 19; TEMP 36.1; O2SAT 94
[2020-05-27 07:55] LABS: Glucose, Whole Blood 81 mg/dL (60-115)
[2020-05-27] MEDS: Dronedarone HCl 400 MG TABLET PO ×2 (08:56→20:41)
[2020-05-27] MEDS: Midodrine HCl 5 MG TABLET PO ×3 (08:56→20:36)
[2020-05-27] MEDS: Apixaban 2.5 MG TABLET PO ×2 (08:57→20:37)
--- NOTE | 2020-05-27 09:31 | PM.GICN ---
History of Present Illness Data of Consult Service Date: 05/27/20 Requesting physician: Vickey Alas Primary Care Provider: MD RENETTA MEHTA Reason for consult: ABDOMINAL PAIN, POOR APPETITE 74 yo female who was admitted on 05/21 due to Nausea and Vomiting. I had seen her in Consult 03/24/20. (Known hx of ESRD on dialysis. Attempted followup as outpatient--patient @ that time was an inpatient @ [facility].) Yesterday consult was placed due to persistent abdominal pain episodes and decreased appetite. (I believe also to allow me to followup since seeing her as an outpatient is difficult.) Patient was very sleepy when I visited today. I reviewed her status with her RN. Patient had been more alert earlier. She had eaten about 1/2 of her breakfast. She had had some sips of Glucerna. She had had no vomiting, no pain. I see no documentation of Transfusion or bleeding. (No hemoccults done.) Review of Systems Review of Systems: Yes Unobtainable due to mental status (Patient very sleepy and was avoiding interaction.) [facility] Past Medical History Medical History Bipolar disorder Bowel obstruction Breast cancer COPD (chronic obstructive pulmonary disease) Diarrhea Diarrhea ESRD (end stage renal disease) Hypothyroidism MSSA bacteremia Paroxysmal A-fib Pulmonary emboli SBO (small bowel obstruction) Functional capacity: independent ambulation Family History Family history: reviewed and not pertinent Social History Social History Alcohol intake: unknown Smoking Status: Former smoker Smoked in Last 30 Days: No Use of substances other than those prescribed or required for medical reasons: No Currently Displaying Signs/Symptoms of Drug Intoxication Withdrawal: No Advance Directives: No Advance Directives Information Provided: Yes Do you have thoughts of harming others: None Do you have a plan to hurt others: No Plan service: No Current occupational status: disabled Meds Allergies Allergy/AdvReac Type Severity Reaction Status Date / Time aspirin Allergy Unknown RASH Unverified 05/04/20 16:04 benztropine Allergy Unknown RASH Unverified 05/04/20 16:04 ibuprofen Allergy Unknown Verified 02/15/20 00:00 NSAIDS (Non-Steroidal Allergy Unknown RASH Unverified 05/04/20 16:04 Anti-Inflamma ziprasidone Allergy Unknown UNKNOWN Unverified 05/04/20 16:04 From COGENTIN Allergy Unknown UNKNOWN Uncoded 05/04/20 16:04 paper tape Allergy Unknown Uncoded 02/15/20 00:00 Plastic tape Allergy Unknown Uncoded 03/21/20 00:00 TAPE,PAPER Allergy Unknown BRUISING Uncoded 05/04/20 16:04 Home Medications Medication Instructions Recorded Confirmed Type apixaban [Eliquis] 2.5 mg PO BID 05/21/20 05/22/20 History clonazepam 1.5 mg PO BEDTIME 05/21/20 05/22/20 History clozapine 50 mg PO BEDTIME 05/21/20 05/22/20 History dronedarone [Multaq] 400 mg PO BID 05/21/20 05/22/20 History lamotrigine 300 mg PO BEDTIME 05/21/20 05/22/20 History levothyroxine 125 mcg PO QAM 05/21/20 05/22/20 History omeprazole 40 mg PO BID 05/21/20 05/22/20 History acetaminophen 650 mg PO BID PRN 05/22/20 05/22/20 History fluticasone propion-salmeterol 1 inh INHALATION BID 05/22/20 05/22/20 History [Wixela Inhub] sevelamer carbonate 05/22/20 History sevelamer carbonate 800 mg PO TID 05/22/20 05/22/20 History Physical Exam Vital Signs: Vital Signs: Vital Signs Temp Pulse Resp BP Pulse Ox 05/27/20 07:25 97.0 F 80 19 122/66 94 05/26/20 23:53 97.6 F 90 20 115/54 L 97 05/26/20 16:48 100 119/61 05/26/20 15:32 98.9 F 96 18 119/61 94 Body Mass Index 23.7 Const: General: comfortable, ill appearing and lethargic Orientation/consciousness: lethargic Resp: Effort & Inspection: normal respiratory effort, not tachypneic and no use of accessory muscles Auscultation: rhonchi (lying flat wet inspiratory/expiratory sounds--partially upper airway) Cardio: Rate: regular rate Rhythm: regular rhythm GI: Inspection: No distended Palpation (GI): Soft to palpation and nontender Auscultation: normoactive bowel sounds Rectal Exam - Female: deferred Results Labs CBC & Chem 7: 05/25/20 08:19 05/25/20 08:19 Microbiology Microbiology Results: Microbiology 05/21/20 16:10 Blood - Venous Blood Culture - Final No growth after 5 days. 05/21/20 16:10 Blood - Venous Blood Culture - Final No growth after 5 days. Assessment and Plan (1) GERD (gastroesophageal reflux disease): Problem details: has been on ongoing treatment for this. Status: Acute Would continue acid blockade. Might consider reducing dosing to 20mg once in AM and once @ hs on discharge. (2) Abdominal pain: Problem details: With this patient's hx and problems with adhesions, it is hard to avoid her having some pain. Ideally, goal would be to try to keep bowels moving daily. Any degree of constipation can aggravate her discomfort. Status: Acute Try to adjust diet, stool softener and laxative if necessary to achieve daily BMs. (3) Poor appetite: Problem details: Multifactorial. Would attempt to find a high protein product that the patient likes and present several times daily if her regular food intake is marginal. Status: Acute Suggest discuss this with Renal or PCP> ? dietary emphasis on high protein intake. (4) C. difficile diarrhea: Problem details: This was just dx on 05/22. She is on oral vanco. Status: Acute Added CRP, Total protein/Albumin and preAlbumin to todays labs. In immunocompromised patients consideration for treatment with Dificid should be discussed.
--- NOTE | 2020-05-27 10:40 | PM.PNNEP ---
Subjective Subjective Interval history: Seen and examined this morning and dialysis. Reported abdominal pain and nausea at that time Seen this afternoon with has in bed that. She reports that she was able to tolerate breakfast and lunch. Physical Exam Vital Signs: Vital Signs: Vital Signs Temp Pulse Resp BP Pulse Ox 05/27/20 07:25 97.0 F 80 19 122/66 94 05/26/20 23:53 97.6 F 90 20 115/54 L 97 05/26/20 16:48 100 119/61 05/26/20 15:32 98.9 F 96 18 119/61 94 Body Mass Index 23.7 Eyes: General: appearance normal, both eyes and all related structures Resp: Effort & Inspection: no cough Cardio: Jugular venous distension: no JVD GI: Palpation (GI): Soft to palpation Assessment & Plan Assessment and plan (1) ESRD (end stage renal disease): Problem details: HD MWF No s/ s uremia Status: Acute
[2020-05-27 11:27] VITALS: BP 114/58; PULSE 81; RESP 18; TEMP 36.1; O2SAT 96
[2020-05-27 11:40] LABS: Glucose, Whole Blood 75 mg/dL (60-115)
[2020-05-27] MEDS: Dextrose 5 % and 0.45 % NaCl 1,000 ML 42 ML IVCONT (13:12)
[2020-05-27 15:29] VITALS: BP 121/71; PULSE 85; RESP 19; TEMP 37.1; O2SAT 96
[2020-05-27 15:40] VITALS: BP 121/71; PULSE 85
[2020-05-27 16:43] LABS: Glucose, Whole Blood 82 mg/dL (60-115)
--- NOTE | 2020-05-27 17:34 | P.PNIM_ITS ---
Subjective Subjective Date of Service: 05/27/20 Interval History: seen this am resting unable to ros Physical Exam Vital Signs: Vital Signs: Vital Signs Temp Pulse Resp BP Pulse Ox 05/27/20 15:29 98.8 F 85 19 121/71 96 05/27/20 11:27 97.0 F 81 18 114/58 L 96 05/27/20 07:25 97.0 F 80 19 122/66 94 05/26/20 23:53 97.6 F 90 20 115/54 L 97 Body Mass Index 23.7 General - no acute distress, appears comfortable Cardiovascular - regular rate and rhythm, S1-S2 Lungs - normal respiratory effort, clear to auscultation bilaterally, no wheezing Abdomen - soft, + tenderness without rebound / guarding Extremities - no edema bilaterally Neuro - awake and alert, no focal deficits Objective Data Current Medications Generic Name Dose Route Start Last Admin Trade Name Freq PRN Reason Stop Dose Admin Acetaminophen 650 mg 05/22/20 09:13 05/24/20 11:52 Acetaminophen 325 Mg Tablet PO 650 mg BID PRN Administration Pain (Scale Score 1-3) Apixaban 2.5 mg 05/22/20 09:00 05/27/20 08:57 Apixaban 2.5 Mg Tablet PO 2.5 mg BID HERNESTO Administration Clonazepam 1.5 mg 05/22/20 21:00 05/26/20 20:33 Clonazepam 0.5 Mg Tablet PO 1.5 mg BEDTIME HERNESTO Administration Clozapine 50 mg 05/22/20 21:00 05/26/20 20:31 Clozapine 25 Mg Tablet PO 50 mg BEDTIME HERNESTO Administration Dronedarone 400 mg 05/22/20 09:00 05/27/20 08:56 Dronedarone Hcl 400 Mg Tablet PO 400 mg BID HERNESTO Administration Fluticasone/Vilanterol 1 puff 05/23/20 08:00 05/26/20 15:39 Fluticasone/Vilanterol 200/25 Blst.W.Dev INHALE Not Given RDAILY HERNESTO Hydroxyzine HCl 50 mg 05/22/20 09:51 05/24/20 20:15 Hydroxyzine Hcl 50 Mg Tablet PO 50 mg BEDTIME PRN Administration Sleep Cefazolin Sodium/Dextrose 2 gm in 50 mls @ 100 mls/hr 05/22/20 16:45 05/26/20 21:01 Ancef IV Infused MOWEFR@1645 [facility] Infusion Dextrose/Sodium Chloride 1,000 mls @ 42 mls/hr 05/25/20 11:45 05/27/20 13:12 D51/2ns IVCONT 42 mls/hr .[id number] HERNESTO Administration Lamotrigine 300 mg 05/22/20 21:00 05/26/20 20:31 Lamotrigine 100 Mg Tablet PO 300 mg BEDTIME HERNESTO Administration Levothyroxine Sodium 125 mcg 05/22/20 06:30 05/27/20 06:45 Levothyroxine Sodium 125 Mcg Tablet PO 125 mcg DAILY@0630 [facility] Administration Lorazepam 0.25 mg 05/23/20 13:53 05/26/20 16:42 Lorazepam 2 Mg/Ml Vial IVPUSH 0.25 mg Q6H PRN Administration Nausea and Vomiting Midodrine 5 mg 05/22/20 09:00 05/27/20 08:56 Midodrine Hcl 5 Mg Tablet PO 5 mg TID HERNESTO Administration Omeprazole 40 mg 05/22/20 06:30 05/27/20 06:46 Omeprazole 40 Mg Capsule.Dr PO 40 mg BID@0630,1630 [facility] Administration Sevelamer HCl 800 mg 05/22/20 15:00 05/27/20 08:56 Sevelamer Hcl 800 Mg Tablet PO 800 mg TID HERNESTO Administration Sodium Chloride 2 ml 05/22/20 00:14 05/27/20 08:56 0.9 % Sodium Chloride Flush 3 Ml Syringe IVFLUSH Not Given QSHIFT [facility] Tramadol HCl 25 mg 05/24/20 15:09 05/25/20 14:24 Tramadol Hcl 50 Mg Tablet PO 25 mg Q6H PRN Administration Pain, Severe (Pain Scale 7-10) Vancomycin HCl 125 mg 05/22/20 19:00 05/27/20 13:12 Vancomycin Hcl 125 Mg/5 Ml Soln.Recon PO 125 mg Q6H HERNESTO Administration Labs CBC & Chem 7: 05/25/20 08:19 05/25/20 08:19 Microbiology Microbiology Results: Microbiology 05/21/20 16:10 Blood - Venous Blood Culture - Final No growth after 5 days. 05/21/20 16:10 Blood - Venous Blood Culture - Final No growth after 5 days. Assessment and Plan (1) Diarrhea: Status: Acute (2) Vomiting: Status: Acute (3) C. difficile diarrhea: Status: Acute (4) MSSA bacteremia: Status: Acute (5) GERD (gastroesophageal reflux disease): Status: Acute (6) Seizure: Status: Acute (7) Hypothyroidism: Status: Acute (8) Paroxysmal A-fib: Status: Acute (9) Bipolar disorder: Status: Acute (10) COPD (chronic obstructive pulmonary disease): Status: Acute (11) ESRD (end stage renal disease): Status: Acute Assessment and Plan: This is a 74-year-old female well known to the hospitalist service who is presenting to the hospital with complaints of nausea and vomiting. She does have a history of recurrent partial / complete small-bowel obstructions which fortunately is not evident on the CT scan. She is admitted for further workup 1. C. diff colitis PO vancomcyin day #01/25 ID in put appreciated 2. nausea and vomiting intermittnet repeat ct not showing much change from admission continue with supportive care gi consult 3. Recent MSSA Bacteremia continue Kefzol 2g post dialysis -- End Date 06/05/2020 4. ESRD Nephrology consulted dialysis per nephrology 5. PAF Eliquis renally dosed 6. Mood continue her chronic meds 7. Chronic hypotension on midodrine -- will continue the same 8. Bladder mass R sided bladder mass outpatient cysto -- patient and Neptali informed Full Code DVT pptx, Aliya
[2020-05-27] MEDS: Acetaminophen 325 MG TABLET 650 MG PO (17:42)
[2020-05-27 20:36] VITALS: BP 135/75; PULSE 85
[2020-05-27] MEDS: cloZAPine 25 MG TABLET 50 MG PO (20:36)
[2020-05-27] MEDS: clonazePAM 0.5 MG TABLET 1.5 MG PO (20:37)
[2020-05-27] MEDS: lamoTRIgine 100 MG TABLET 300 MG PO (20:38)
[2020-05-27 21:03] LABS: Glucose, Whole Blood 89 mg/dL (60-115)
[2020-05-28] VITALS: BP 128/64; PULSE 76; RESP 18; TEMP 36.6; O2SAT 94
[2020-05-28] MEDS: Omeprazole 40 MG CAPSULE.DR PO ×2 (06:09→16:45)
[2020-05-28] MEDS: Levothyroxine Sodium 125 MCG TABLET PO (06:09)
[2020-05-28 07:29] VITALS: BP 107/63; PULSE 76; RESP 19; TEMP 35.9; O2SAT 94
[2020-05-28 07:41] LABS: Glucose, Whole Blood 77 mg/dL (60-115)
[2020-05-28 07:55] LABS: MANUAL DIFF FLAG NO
[2020-05-28 08:08] LABS: Basophils Percent Auto 0.3 % (0-2); Eosinophils Absolute Auto 0.6 X10*3/uL (0.0-0.4); Eosinophils Percent Auto 4.9 % (0-4); Hematocrit 30.6 % (37-47); Hemoglobin 9.6 g/dl (12.0-16.0); Imm Gran Abs Auto 0.05 X10*3/uL (0.00-0.03); Imm Gran Pct Auto 0.4 % (0.0-0.4); Lymphocytes Absolute Auto 0.9 X10*3/uL (1.2-4.9); Lymphocytes Percent Auto 8.1 % (20-40); Mean Corpuscular HGB Conc 31.4 g/dl (31.0-35.0); Mean Corpuscular Hemoglobin 29.8 pg (27.0-33.0); Mean Platelet Volume 10.3 fL (9.4-12.3); Monocytes Absolute Auto 1.2 X10*3/uL (0.1-1.2); Monocytes Percent Auto 10.3 % (2-11); Neutrophils Absolute Auto 8.8 X10*3/uL (2.0-8.3); Platelet Count 273 X10*3/uL (160-400); Red Blood Count 3.22 X10*6/uL (4.20-5.50); Red Cell Distribution Width 16.3 % (11.0-16.0); White Blood Count 11.5 X10*3/uL (4.8-10.8)
[2020-05-28 08:40] LABS: Anion Gap 14 (12-20); Carbon Dioxide 21 mmol/L (22-29); Chloride 99 mmol/L (96-108); Glucose Random 70 mg/dL (60-115); Potassium 3.8 mmol/l (3.3-5.1); Sodium 130 mmol/L (135-145)
[2020-05-28 08:41] LABS: Albumin Level 2.3 g/dL (3.5-5.0); C Reactive Protein 14.24 mg/dL (< or = 0.50); Total Protein 4.7 g/dL (6.5-8.0)
[2020-05-28 08:58] LABS: Blood Urea Nitrogen 25 mg/dL (9-16)
[2020-05-28 08:59] LABS: Calcium 9.6 mg/dL (8.4-10.2)
[2020-05-28 09:22] LABS: Estimated Glomerular Filt Rate 10
[2020-05-28] MEDS: Apixaban 2.5 MG TABLET PO ×2 (09:43→22:01)
[2020-05-28] MEDS: Midodrine HCl 5 MG TABLET PO ×3 (09:43→22:00)
[2020-05-28] MEDS: Dronedarone HCl 400 MG TABLET PO ×2 (09:44→22:00)
[2020-05-28] MEDS: Nystatin Powder 15 GM BOTTLE 1 APPL TOPICAL ×2 (09:48→22:22)
[2020-05-28] MEDS: Fluticasone/Vilanterol 200/25 BLST.W.DEV 1 PUFF INHALE (11:43)
[2020-05-28 11:51] LABS: Glucose, Whole Blood 71 mg/dL (60-115)
[2020-05-28] MEDS: Dextrose 5 % and 0.45 % NaCl 1,000 ML 42 ML IVCONT (12:22)
--- NOTE | 2020-05-28 14:29 | PM.PNNEP ---
Subjective Subjective Interval history: Events noted No new issues unable to ros Physical Exam Vital Signs: Vital Signs: Vital Signs Temp Pulse Resp BP Pulse Ox 05/28/20 07:29 96.7 F L 76 19 107/63 94 05/28/20 00:00 97.9 F 76 18 128/64 94 05/27/20 20:36 85 135/75 05/27/20 15:40 85 121/71 05/27/20 15:29 98.8 F 85 19 121/71 96 Body Mass Index 0.0 Eyes: General: appearance normal, both eyes and all related structures Resp: Effort & Inspection: no cough Cardio: Jugular venous distension: no JVD GI: Palpation (GI): Soft to palpation Skin: General skin exam: no rashes or lesions noted Assessment & Plan Assessment and plan (1) ESRD (end stage renal disease): Status: Chronic Assessment and Plan: NO s/s of uremia HD 3 x week HD via Permcath
[2020-05-28 15:59] VITALS: BP 117/63; PULSE 76; RESP 18; TEMP 35.8; O2SAT 95
[2020-05-28 16:43] LABS: Glucose, Whole Blood 82 mg/dL (60-115)
--- NOTE | 2020-05-28 16:49 | HO.PM.IMPN ---
Subjective Subjective Date of Service: 05/28/20 Interval History: seen and examined reports for the first time that she feels better tolerating diet for several meals now no n/v Physical Exam Vital Signs: Vital Signs: Vital Signs Temp Pulse Resp BP Pulse Ox 05/28/20 15:59 96.5 F L 76 18 117/63 95 05/28/20 07:29 96.7 F L 76 19 107/63 94 05/28/20 00:00 97.9 F 76 18 128/64 94 05/27/20 20:36 85 135/75 Body Mass Index 0.0 General - no acute distress, appears comfortable Cardiovascular - regular rate and rhythm, S1-S2 Lungs - normal respiratory effort, clear to auscultation bilaterally, no wheezing Abdomen - soft, nontender, no rebound regarding Extremities - no edema bilaterally Neuro - awake and alert, no focal deficits Objective Data Current Medications Generic Name Dose Route Start Last Admin Trade Name Freq PRN Reason Stop Dose Admin Acetaminophen 650 mg 05/22/20 09:13 05/27/20 17:42 Acetaminophen 325 Mg Tablet PO 650 mg BID PRN Administration Pain (Scale Score 1-3) Apixaban 2.5 mg 05/22/20 09:00 05/28/20 09:43 Apixaban 2.5 Mg Tablet PO 2.5 mg BID HERNESTO Administration Clozapine 50 mg 05/22/20 21:00 05/27/20 20:36 Clozapine 25 Mg Tablet PO 50 mg BEDTIME HERNESTO Administration Dronedarone 400 mg 05/22/20 09:00 05/28/20 09:44 Dronedarone Hcl 400 Mg Tablet PO 400 mg BID HERNESTO Administration Fluticasone/Vilanterol 1 puff 05/23/20 08:00 05/28/20 11:43 Fluticasone/Vilanterol 200/25 Blst.W.Dev INHALE 1 puff RDAILY HERNESTO Administration Hydroxyzine HCl 50 mg 05/22/20 09:51 05/24/20 20:15 Hydroxyzine Hcl 50 Mg Tablet PO 50 mg BEDTIME PRN Administration Sleep Cefazolin Sodium/Dextrose 2 gm in 50 mls @ 100 mls/hr 05/22/20 16:45 05/26/20 21:01 Ancef IV Infused MOWEFR@1645 [facility] Infusion Lamotrigine 300 mg 05/22/20 21:00 05/27/20 20:38 Lamotrigine 100 Mg Tablet PO 300 mg BEDTIME HERNESTO Administration Levothyroxine Sodium 125 mcg 05/22/20 06:30 05/28/20 06:09 Levothyroxine Sodium 125 Mcg Tablet PO 125 mcg DAILY@0630 [facility] Administration Midodrine 5 mg 05/22/20 09:00 05/28/20 16:44 Midodrine Hcl 5 Mg Tablet PO 5 mg TID HERNESTO Administration Nystatin 1 appl 05/27/20 21:40 05/28/20 09:48 Nystatin Powder 15 Gm Bottle TOPICAL 1 appl BID [facility] Administration Protocol Omeprazole 40 mg 05/22/20 06:30 05/28/20 16:45 Omeprazole 40 Mg Capsule.Dr PO 40 mg BID@0630,1630 [facility] Administration Sevelamer HCl 800 mg 05/22/20 15:00 05/28/20 16:44 Sevelamer Hcl 800 Mg Tablet PO 800 mg TID HERNESTO Administration Sodium Chloride 2 ml 05/22/20 00:14 05/28/20 16:45 0.9 % Sodium Chloride Flush 3 Ml Syringe IVFLUSH Not Given QSHIFT HERNESTO Tramadol HCl 25 mg 05/24/20 15:09 05/25/20 14:24 Tramadol Hcl 50 Mg Tablet PO 25 mg Q6H PRN Administration Pain, Severe (Pain Scale 7-10) Vancomycin HCl 125 mg 05/22/20 19:00 05/28/20 12:23 Vancomycin Hcl 125 Mg/5 Ml Soln.Recon PO 125 mg Q6H HERNESTO Administration Labs CBC & Chem 7: 05/28/20 07:24 05/28/20 07:23 Microbiology Microbiology Results: Microbiology 05/21/20 16:10 Blood - Venous Blood Culture - Final No growth after 5 days. 05/21/20 16:10 Blood - Venous Blood Culture - Final No growth after 5 days. Assessment and Plan (1) Diarrhea: Status: Acute (2) Vomiting: Status: Acute (3) C. difficile diarrhea: Status: Acute (4) MSSA bacteremia: Status: Acute (5) GERD (gastroesophageal reflux disease): Status: Acute (6) Seizure: Status: Acute (7) Hypothyroidism: Status: Acute (8) Paroxysmal A-fib: Status: Acute (9) Bipolar disorder: Status: Acute (10) COPD (chronic obstructive pulmonary disease): Status: Acute (11) ESRD (end stage renal disease): Status: Chronic Assessment and Plan: This is a 74-year-old female well known to the hospitalist service who is presenting to the hospital with complaints of nausea and vomiting. She does have a history of recurrent partial / complete small-bowel obstructions which fortunately is not evident on the CT scan. She is admitted for further workup 1. C. diff colitis PO vancomcyin day #7 ID in put appreciated 2. nausea and vomiting resolving gi consult appreciated 3. Recent MSSA Bacteremia continue Kefzol 2g post dialysis -- End Date 06/05/2020 4. ESRD Nephrology consulted dialysis per nephrology 5. PAF Eliquis renally dosed 6. Mood continue her chronic meds 7. Chronic hypotension on midodrine -- will continue the same 8. Bladder mass R sided bladder mass outpatient cysto -- patient and Neptali informed improving -- dispo: plan home tomorrow Full Code DVT pptx, Aliya
--- NOTE | 2020-05-28 17:00 | PC.NURSE ---
Dr. Alas notified of labs ggt, ldh, and crp not done from Dr. Fontana order yesterday. States labs do not have to be done at this time
[2020-05-28] MEDS: traMADoL HCL 50 MG TABLET 25 MG PO (17:37)
[2020-05-28 21:02] LABS: Glucose, Whole Blood 83 mg/dL (60-115)
[2020-05-28] MEDS: lamoTRIgine 100 MG TABLET 300 MG PO (22:00)
[2020-05-28] MEDS: cloZAPine 25 MG TABLET 50 MG PO (22:00)
[2020-05-28 23:48] VITALS: BP 107/51; PULSE 82; RESP 20; TEMP 36.6; O2SAT 95
[2020-05-29] MEDS: Omeprazole 40 MG CAPSULE.DR PO ×2 (05:58→17:43)
[2020-05-29] MEDS: Levothyroxine Sodium 125 MCG TABLET PO (05:58)
[2020-05-29 06:00] VITALS: BMI 24.3
[2020-05-29 07:12] VITALS: BP 108/56; PULSE 75; RESP 18; TEMP 36.6; O2SAT 96
[2020-05-29 07:45] LABS: Glucose, Whole Blood 76 mg/dL (60-115)
[2020-05-29] MEDS: Fluticasone/Vilanterol 200/25 BLST.W.DEV 1 PUFF INHALE (07:50)
--- NOTE | 2020-05-29 09:03 | MHC.CM.PN ---
dc plan is home c vna for nsg and home pt. she lives c her . she will cont. to participate in HD -m.w.f. cm to cont. to follow.
[2020-05-29] MEDS: Midodrine HCl 5 MG TABLET PO (10:41)
[2020-05-29 12:24] VITALS: BP 105/53; PULSE 80; RESP 18; TEMP 36.5; O2SAT 95
[2020-05-29 12:41] LABS: Glucose, Whole Blood 81 mg/dL (60-115)
--- NOTE | 2020-05-29 13:17 | PM.DS ---
DS: Providers Provider Date of admission: 05/21/20 22:11 Primary care physician: Unknown Physician Consults: 05/22/20 00:14 Consult to Infectious Diseases Routine Consulting Provider: Infectious Disease Reason for consultation: MSSA bacteremia hx Has provider been notified: No Consult to Nephrology Routine Consulting Provider: [facility] Reason for consultation: HD Has provider been notified: No 05/26/20 15:58 Consult to Gastroenterology Routine Consulting Provider: Maria Elena Fontana Reason for consultation: persistant abdominal pain and poor appetite DS: Diagnosis Discharge Diagnosis (1) ESRD (end stage renal disease): Status: Chronic (2) C. difficile diarrhea: Status: Acute (3) Vomiting: Status: Acute (4) MSSA bacteremia: Status: Acute (5) Paroxysmal A-fib: Status: Acute DS: Summary Hospital Course Hospital Course: patient presented to the hospital with complaints of nausea, vomiting, diarrhea. A CT of the abdomen and pelvis showed no bowel obstruction. Her stool studies were sent and ultimately returned positive for C diff after which she was initiated on oral vancomycin. patient's symptoms were slow to improve and her oral intake took nearly 6-7 days to return to somewhat baseline. She will be discharged home with 3 more days of p.o. vancomycin in regards to her known Staph aureus bacteremia, she was continued on IV Kefzol post dialysis on Friday. Her end date remains 06/05/2020. An incidental finding of a bladder mass was noted on her CT scan. Given her acute issues, urological evaluation was deferred in the inpatient setting and she will be given referral for outpatient urology with Dr. Marshal Gould. Patient and patient's have been informed multiple times that this needs to be followed closely. Time Spent with Patient Time attestation: Total time spent providing and/or coordinating discharge services: Physical Exam Vital Signs: Vital Signs: Vital Signs Temp Pulse Resp BP Pulse Ox 05/29/20 12:24 97.7 F 80 18 105/53 L 95 05/29/20 07:12 97.8 F 75 18 108/56 L 96 05/28/20 23:48 97.8 F 82 20 107/51 L 95 05/28/20 15:59 96.5 F L 76 18 117/63 95 Body Mass Index 24.3 General - no acute distress, appears comfortable Cardiovascular - regular rate and rhythm, S1-S2 Lungs - normal respiratory effort, clear to auscultation bilaterally, no wheezing Abdomen - soft, nontender, no rebound regarding Extremities - no edema bilaterally Neuro - awake and alert, no focal deficits DS: Data Data Completed and Pending Labs on day of discharge: Labs from last 24 hours 05/29/20 05/29/20 05/28/20 12:34 07:10 20:58 POC Glucose 81 76 83 05/28/20 16:40 POC Glucose 82 Discharge Plan Discharge Patient Disposition: Home Health Service Referrals: Marshal Gould MD [Physician] - 2 Weeks (call office to schedule appointment for evaluation of bladder mass) Devin Islas MD [Physician] - 1 Week (Please call and schedule a follow up appointment.) Physician,Unknown [Primary Care Provider] - Discharge Medications: New cefazolin 1 gram recon soln 2 g IV .mwf Qty: 1 RF: 0 vancomycin 50 mg/mL recon soln 125 mg PO QID 3 Days Qty: 30 RF: 0 Continued nystatin 100,000 unit/gram powder 1 applic topical DAILY Qty: 30 RF: 0 hydroxyzine pamoate 50 mg capsule 50 mg PO BEDTIME PRN (Reason: Sleep) 30 Days Qty: 30 RF: 7 lamotrigine 150 mg tablet 300 mg PO BEDTIME RF: 0 clozapine 100 mg tablet 50 mg PO BEDTIME RF: 0 clonazepam 1 mg tablet 1.5 mg PO BEDTIME RF: 0 omeprazole 40 mg capsule,delayed release(DR/EC) 40 mg PO BID RF: 0 levothyroxine 125 mcg tablet 125 mcg PO QAM RF: 0 Multaq 400 mg tablet 400 mg PO BID RF: 0 Eliquis 2.5 mg tablet 2.5 mg PO BID RF: 0 acetaminophen 325 mg Tablet 650 mg PO BID PRN (Reason: Pain (Scale Score 1-3)) RF: 0 fluticasone propion-salmeterol [Wixela Inhub] 500-50 mcg/dose Blister With Device 1 inh INHALATION BID RF: 0 sevelamer carbonate 800 mg Tablet 800 mg PO TID RF: 0 sevelamer carbonate RF: 0 Discontinued midodrine 5 mg tablet 5 mg PO TID 30 Days Qty: 90 RF: 8 Discharge Orders: Discharge Order (Routine); Ordered 05/29/20 Ordered By: Vickey lAas Diet: advance to your usual diet Activity on Discharge: As tolerated Visit Report Forms: Patient Portal Discharge page Care Plan Goals: To stay healthy and out of the hospital. Health Concerns: C. Diff infection Bladder Mass Plan of Treatment: Finish antibiotics for your c. diff infection -- vancomycin For Bladder Mass -- call Dr. Gould's office for appointment You will complete your IV antibiotics after dilaysis -- last date is next week on 06/05/2020
--- NOTE | 2020-05-29 16:07 | PM.PNNEP ---
Subjective Subjective Interval history: Seen during HD Events noted Physical Exam Vital Signs: Vital Signs: Vital Signs Temp Pulse Resp BP Pulse Ox 05/29/20 12:24 97.7 F 80 18 105/53 L 95 05/29/20 07:12 97.8 F 75 18 108/56 L 96 05/28/20 23:48 97.8 F 82 20 107/51 L 95 Body Mass Index 24.3 Const: General: cooperative Orientation/consciousness: patient oriented x3 HENMT: Head: Yes normal to inspection Ears: hearing grossly normal bilaterally General nose exam: Normal external nose present Face and sinus: Yes normal facial exam Eyes: General: appearance normal, both eyes and all related structures Neck: Neck: Yes normal visual inspection Chest: Other: Permcath on the left side Chest palpation & inspection: normal inspection of the chest and normal palpation of entire chest wall Resp: Effort & Inspection: normal respiratory effort Auscultation: clear to auscultation bilaterally and rhonchi (lying flat wet inspiratory/expiratory sounds--partially upper airway) Cardio: Jugular venous distension: no JVD Rate: regular rate Rhythm: regular rhythm GI: Inspection: Yes normal to inspection and No distended Palpation (GI): Soft to palpation Auscultation: normoactive bowel sounds Rectal Exam - Female: deferred Skin: General skin exam: no rashes or lesions noted Neuro: General: patient oriented x3 Extrem: General: Yes normal to inspection and Yes other (dry sking in bilateral LE ) Psych: Mental Status: mental status grossly normal Assessment & Plan Assessment and plan (1) ESRD (end stage renal disease): Status: Chronic Assessment and Plan: NO s/s of uremia HD 3 x week HD via Permcath
[2020-05-29] MEDS: Acetaminophen 325 MG TABLET 650 MG PO (17:43)
== END 2020-05-29 18:30 | disposition home health service (06) | DRG 371 ==
LOC: HO.ED 20:28 → HO.S3 22:36
PROVIDERS: Internal Medicine Gastroenterology; Physician Assistant; Admitting Provider Internal Medicine; Visit Provider Family Medicine
DX: A04.72 Enterocolitis due to Clostridium difficile, not specified as recurrent (principal); N18.6 End stage renal disease; R78.81 Bacteremia; F31.9 Bipolar disorder, unspecified; Z85.3 Personal history of malignant neoplasm of breast; J44.9 Chronic obstructive pulmonary disease, unspecified; I48.0 Paroxysmal atrial fibrillation; E03.9 Hypothyroidism, unspecified; K21.9 Gastro-esophageal reflux disease without esophagitis; Z99.2 Dependence on renal dialysis; I95.89 Other hypotension; G40.909 Epilepsy, unspecified, not intractable, without status epilepticus; B95.61 Methicillin susceptible Staphylococcus aureus infection as the cause of diseases classified elsewhere; N32.89 Other specified disorders of bladder; Z87.891 Personal history of nicotine dependence; Z88.6 Allergy status to analgesic agent; Z79.01 Long term (current) use of anticoagulants; Z79.51 Long term (current) use of inhaled steroids; Z79.890 Hormone replacement therapy; Z79.899 Other long term (current) drug therapy
CPT/HCPCS: 36415; 74176; 80048; 80076; 82040; 82247; 82947; 83605; 83690; 84075; 84134; 84155; 84450; 84460; 85025; 86140; 87040; 87324; 87449; 87493; 90999; 93005; 93010; 94640; 96361; 96374; 99224; 99225; 99284; 99285; J0690; J2060; J2270; J2405; J2765

== ENCOUNTER 2020-06-03 | Outpatient (REF) | payer MEDICARE, BC, SELFPAY ==
[2020-06-08 14:50] LABS: FIT Int Ctl YES; FIT1 POSITIVE (NEGATIVE); FIT2 POSITIVE (NEGATIVE)
== END 2020-06-03 00:01 | disposition home or self-care (01) ==
LOC: HO.LNP
PROVIDERS: Visit Provider Internal Medicine Gastroenterology
DX: A04.72 Enterocolitis due to Clostridium difficile, not specified as recurrent (principal)
CPT/HCPCS: 82274

== ENCOUNTER → 2020-06-08 11:42 | Outpatient (BNVA) | payer MEDICARE, BC, SELFPAY | PROVIDERS: PCP Internal Medicine; Visit Provider Urology | DX: C67.9 Malignant neoplasm of bladder, unspecified (principal); I12.0 Hypertensive chronic kidney disease with stage 5 chronic kidney disease or end stage renal disease; N18.6 End stage renal disease; I48.91 Unspecified atrial fibrillation; Z79.01 Long term (current) use of anticoagulants; Z99.2 Dependence on renal dialysis | CPT/HCPCS: 99204 ==

== ENCOUNTER 2020-06-17 19:58 | Emergency (ER) | payer MEDICARE, BC, SELFPAY ==
[2020-06-17 20:16] VITALS: BP 93/58; PULSE 58; RESP 18; TEMP 37.6; O2SAT 94; BMI 22.1
--- NOTE | 2020-06-17 20:58 | ECG_ITS ---
Test Reason : NAUSEA Blood Pressure : / mmHG Vent. Rate : 091 BPM Atrial Rate : 091 BPM P-R Int : 150 ms QRS Dur : 090 ms QT Int : 396 ms P-R-T Axes : 015 032 013 degrees QTc Int : 487 ms Sinus rhythm with Premature atrial complexes Nonspecific ST abnormality Possible Right atrial enlargement Abnormal ECG When compared with ECG of 21-MAY-2020 17:14, Premature atrial complexes are now Present Referred By: Jacqueline Patel Electronically Signed By:STANLEY BAL MD
--- NOTE | 2020-06-17 20:59 | XR_ITS ---
EXAMINATION: XR CHEST CLINICAL INFORMATION: Cough COMPARISON: Chest radiograph 05/06/2020 TECHNIQUE: Frontal view of the chest was obtained. FINDINGS: Since the prior study, a tunneled right IJ dialysis catheter has been removed as has a left jugular catheter. A new tunneled left IJ dialysis catheter has been placed with its tip at the proximal right atrium. Heart size normal. The right lung is clear. There is some minimal patchy density seen at the left lung base similar to that present on the prior study. No pleural effusions are seen. No pneumothoraces are present. Presumed occluded stents are present in both arms related to occluded dialysis fistula. Degenerative changes again noted in the right shoulder. XR/XR chest 1V IMPRESSION: Left lower lobe infiltrate
--- NOTE | 2020-06-17 21:06 | ED_ITS ---
HPI - Nausea/Vomiting/Diarrhea General Chief complaint: Nausea/Vomiting/Diarrhea Stated complaint: vomiting Time Seen by Provider: 06/17/20 20:50 Source: patient Mode of arrival: ambulatory Limitations: no limitations History of Present Illness HPI Narrative: This is a 74-year-old female who presents with 2 days of nausea and a few small episodes of nonbloody /nonbilious vomiting and patient states that the nausea is somewhat baseline for her and the symptoms are not associated with any fevers, chills, shortness of breath, chest pain /palpitations, obstipation, abdominal pain, and she endorses that her last BM was yesterday and although she continues to make small amounts of urine she denies any associated pain/ burning / frequency. She is on dialysis and has been compliant with her dialysis schedule. Related Data Home Medications Medication Instructions Recorded Confirmed Eliquis 2.5 mg PO BID 05/21/20 06/07/20 Multaq 400 mg PO BID 05/21/20 06/07/20 clonazepam 1.5 mg PO BEDTIME 05/21/20 06/07/20 clozapine 50 mg PO BEDTIME 05/21/20 06/07/20 lamotrigine 300 mg PO BEDTIME 05/21/20 06/07/20 levothyroxine 125 mcg PO QAM 05/21/20 06/07/20 omeprazole 40 mg PO BID 05/21/20 06/07/20 acetaminophen 650 mg PO BID PRN 05/22/20 06/07/20 fluticasone propion-salmeterol 1 inh INHALATION BID 05/22/20 06/07/20 [Wixela Inhub] sevelamer carbonate 05/22/20 06/07/20 sevelamer carbonate 800 mg PO TID 05/22/20 06/07/20 Previous Rx's Medication Instructions Recorded nystatin 100,000 unit/gram topical 1 applic TOPICAL DAILY #30 g 05/23/20 powder hydroxyzine pamoate 50 mg capsule 50 mg PO BEDTIME PRN 30 Days #30 05/25/20 cap lactobacillus combination no.9 4 4,000 mmu cells PO DAILY #90 cap 06/08/20 billion cell capsule prochlorperazine maleate 5 mg PO QID PRN 3 Days #12 tab 06/18/20 [Compazine] Allergies Allergy/AdvReac Type Severity Reaction Status Date / Time adhesive tape Allergy Unknown Unknown Verified 06/17/20 20:20 aspirin Allergy Unknown RASH Verified 06/17/20 20:20 benztropine Allergy Unknown RASH Verified 06/17/20 20:20 ibuprofen Allergy Unknown Rash Verified 06/17/20 20:20 NSAIDS (Non-Steroidal Allergy Unknown RASH Verified 06/17/20 20:20 Anti-Inflamma ziprasidone Allergy Unknown UNKNOWN Verified 06/17/20 20:20 Review of Systems Review of Systems: Pertinent positives and negatives as stated in HPI 10 point review of systems is otherwise negative. PMFSH Past Medical History Source: nursing notes reviewed Medical History Abdominal pain Bipolar disorder Bowel obstruction Breast cancer COPD (chronic obstructive pulmonary disease) Diarrhea Diarrhea ESRD (end stage renal disease) Hypothyroidism MSSA bacteremia Paroxysmal A-fib Poor appetite Pulmonary emboli SBO (small bowel obstruction) Vomiting Surgical History History of abdominal surgery History of appendectomy History of cholecystectomy History of hand surgery History of surgery History of tonsillectomy Family History Family History Father No problems noted. Mother No problems noted. Social History Social History Alcohol intake: never Smoking Status: Never smoker Use of substances other than those prescribed or required for medical reasons: No Advance Directives: No Advance Directives Information Provided: No service: No Current occupational status: disabled Physical Exam Vital Signs: Vital Signs: Vital Signs Temp Pulse Resp BP Pulse Ox 06/18/20 01:28 ES T 97.8 F 94 18 101/44 L 97 06/17/20 20:16 99.7 F 58 18 93/58 L 94 Body Mass Index 22.1 VITAL SIGNS: Reviewed. GENERAL: Well developed, well nourished, in no acute distress. HEAD: Normocephalic/atraumatic, EYES: PERRLA, EOMI intact without pain, no nystagmus/pallor/icterus noted EARS: Ext canals without abnormality, TMs non-bulging and non-erythematous NOSE: Nares patent bilateral OROPHARYNX: no oral lesions noted, posterior pharynx clear and non-erythematous without noted tonsillar enlargement/erythema/exudates NECK: Supple, no adenopathy LUNGS: Normal breath sounds. No adventitious sounds or accessory muscle use. SpO2<94> CARDIOVASCULAR: Regular rate and rhythm without noted murmurs, no JVD or lower extremity edema. ABDOMEN: Soft, non-tender, non-distended with bowel sounds. No rigidity. No guarding. No palpable masses or hernias noted MUSCULOSKELETAL: No tenderness, deformities, or effusions noted on gross inspection. EXTREMITIES: No cyanosis, clubbing or edema. SKIN: Inspection of the skin reveals no rashes, ulcerations, jaundice, pallor, or petechiae. NEUROLOGIC: Alert and oriented x 4. Strength and sensation to light touch were grossly intact x 4. Course Course Course Narrative: This is a 74-year-old female with history and clinical presentation consistent with acute on chronic nausea and will evaluate for bowel obstruction given history of this condition as well as any laboratory values that may indicate alternative reasons for her acute exacerbation of the nausea and vomiting. On review of all investigations there is no evidence of acute infection and noted anemia is actually improved over prior and renal function is chronically stable. On review of chest x-ray there was some mention of possible left lower lobe infiltrate which was further investigated with a CT scan of the chest and on that imaging study was described as scarring. Given patient's history of bowel obstruction and persistent nausea and vomiting despite p.o. challenge a CT abdomen pelvis without contrast was obtained and not found to have any acute pathology specifically no SBO. Patient then treated with Compazine with good resolution of nausea and vomiting and is currently tolerating liquids and solids without difficulty. All results and findings were discussed with her and her and she will be discharged with a prescription for Compazine and instructed to follow-up with her primary care provider. MDM - Nausea/Vomiting/Diarrhea Lab Data Result diagrams: 06/17/20 21:52 06/17/20 21:52 Labs: Lab Results 06/17/20 06/17/20 Range/Units 21:52 21:52 WBC 6.3 (4.8-10.8) X10*3/uL RBC 3.91 L D (4.20-5.50) X10*6/uL Hgb 11.7 L D (12.0-16.0) g/dl Hct 37.8 D (37-47) % MCV 96.7 (80-98) fL MCH 29.9 (27.0-33.0) pg MCHC 31.0 (31.0-35.0) g/dl RDW 16.3 H (11.0-16.0) % Plt Count 325 (160-400) X10*3/uL MPV 9.6 (9.4-12.3) fL Immature Gran % (Auto) 0.3 (0.0-0.4) % Neut % (Auto) 65.8 (45-73) % Lymph % (Auto) 14.8 L (20-40) % [place] % (Auto) 14.4 H (2-11) % Eos % (Auto) 3.7 (0-4) % Baso % (Auto) 1.0 (0-2) % Lymph # (Auto) 0.9 L (1.2-4.9) X10*3/uL [place] # (Auto) 0.9 (0.1-1.2) X10*3/uL Eos # (Auto) 0.2 (0.0-0.4) X10*3/uL Baso # (Auto) 0.1 (0.0-0.2) X10*3/uL Abs Immat Gran (auto) 0.02 (0.00-0.03) X10*3/uL Absolute Neuts (auto) 4.1 (2.0-8.3) X10*3/uL Absolute Nucleated RBC 0.000 (0.0-0.012) X10*3/uL Nucleated RBC % (auto) 0.0 (0.0-0.2) /100WBC Sodium 141 (135-145) mmol/L Potassium 3.4 (3.3-5.1) mmol/l Chloride 98 (96-108) mmol/L Carbon Dioxide 32 H (22-29) mmol/L Anion Gap 14 (12-20) BUN 18 H (9-16) mg/dL Creatinine 3.97 H (0.5-1.4) mg/dL Estim Creat Clear Calc 10.5 Estimated GFR 11 Random Glucose 103 D (60-115) mg/dL Calcium 10.2 (8.4-10.2) mg/dL Total Bilirubin 0.4 (0.0-1.0) mg/dL AST 22 D (5-31) U/L ALT 8 (0-31) U/L Alkaline Phosphatase 108 D (39-117) U/L Total Protein 6.3 L D (6.5-8.0) g/dL Albumin 3.2 L D (3.5-5.0) g/dL ECG Data Attestation: I personally reviewed and interpreted this ECG as follows: Prior ECG tracings: available for review (05/21/2020) Interpretation: normal sinus rhythm, HR - 91, no evidence of acute ischemia, CA/QRS within normal limits and borderline QTC prolongation-487 Discharge Plan Discharge Clinical Impression: Mild nausea and vomiting Patient Disposition: Home, Self-Care Instructions: Acute Nausea and Vomiting (ED) Additional Instructions: 1. Try to avoid extreme temperatures as it relates to your food, for example, do not attempt to consume very hot or very cold food or liquid. 2. 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 3. Resume all of your home medications as prescribed. The patient and/or family acknowledge understanding of results (as applicable), diagnosis, treatment plan, need for follow up, and symptoms that should prompt a return to the emergency room. Prescriptions: New prochlorperazine maleate [Compazine] 5 mg tablet 5 mg PO QID PRN (Reason: nausea and vomiting) 3 Days Qty: 12 RF: 0 No Action nystatin 100,000 unit/gram powder 1 applic topical DAILY Qty: 30 RF: 0 hydroxyzine pamoate 50 mg capsule 50 mg PO BEDTIME PRN (Reason: Sleep) 30 Days Qty: 30 RF: 7 Adult 50 Plus Probiotic 4 billion cell capsule 4,000 mmu cells PO DAILY Qty: 90 RF: 0 lamotrigine 150 mg tablet 300 mg PO BEDTIME RF: 0 clozapine 100 mg tablet 50 mg PO BEDTIME RF: 0 clonazepam 1 mg tablet 1.5 mg PO BEDTIME RF: 0 omeprazole 40 mg capsule,delayed release(DR/EC) 40 mg PO BID RF: 0 levothyroxine 125 mcg tablet 125 mcg PO QAM RF: 0 Multaq 400 mg tablet 400 mg PO BID RF: 0 Eliquis 2.5 mg tablet 2.5 mg PO BID RF: 0 acetaminophen 325 mg Tablet 650 mg PO BID PRN (Reason: Pain (Scale Score 1-3)) RF: 0 fluticasone propion-salmeterol [Wixela Inhub] 500-50 mcg/dose Blister With Device 1 inh INHALATION BID RF: 0 sevelamer carbonate 800 mg Tablet 800 mg PO TID RF: 0 sevelamer carbonate RF: 0 Referrals: Gabriel Acosta MD [Primary Care Provider] - 2 days ( Persistent and recurrent nausea and vomiting, may need further evaluation by GI.)
[2020-06-17 22:04] LABS: Basophils Absolute Auto 0.1 X10*3/uL (0.0-0.2); Eosinophils Absolute Auto 0.2 X10*3/uL (0.0-0.4); Eosinophils Percent Auto 3.7 % (0-4); Hematocrit 37.8 % (37-47); Hemoglobin 11.7 g/dl (12.0-16.0); Imm Gran Abs Auto 0.02 X10*3/uL (0.00-0.03); Imm Gran Pct Auto 0.3 % (0.0-0.4); Lymphocytes Absolute Auto 0.9 X10*3/uL (1.2-4.9); Lymphocytes Percent Auto 14.8 % (20-40); MANUAL DIFF FLAG NO; Mean Corpuscular Hemoglobin 29.9 pg (27.0-33.0); Mean Corpuscular Volume 96.7 fL (80-98); Mean Platelet Volume 9.6 fL (9.4-12.3); Monocytes Absolute Auto 0.9 X10*3/uL (0.1-1.2); Monocytes Percent Auto 14.4 % (2-11); Neutrophils Absolute Auto 4.1 X10*3/uL (2.0-8.3); Neutrophils Percent Auto 65.8 % (45-73); Platelet Count 325 X10*3/uL (160-400); Red Blood Count 3.91 X10*6/uL (4.20-5.50); Red Cell Distribution Width 16.3 % (11.0-16.0); White Blood Count 6.3 X10*3/uL (4.8-10.8)
[2020-06-17] MEDS: Acetaminophen 325 MG TABLET 975 MG PO (22:36)
[2020-06-17] MEDS: Lidocaine 4 % Patch ADH..PATCH 1 PATCH TRANSDERMA (22:37)
[2020-06-17 22:45] LABS: Alanine Aminotransferase 8 U/L (0-31); Albumin Level 3.2 g/dL (3.5-5.0); Alkaline Phosphatase 108 U/L (39-117); Anion Gap 14 (12-20); Aspartate Amino Transferase 22 U/L (5-31); Bilirubin Total 0.4 mg/dL (0.0-1.0); Blood Urea Nitrogen 18 mg/dL (9-16); Calcium 10.2 mg/dL (8.4-10.2); Carbon Dioxide 32 mmol/L (22-29); Chloride 98 mmol/L (96-108); Creatinine Clr Calc Pharmacy 10.5; Estimated Glomerular Filt Rate 11; Glucose Random 103 mg/dL (60-115); Potassium 3.4 mmol/l (3.3-5.1); Sodium 141 mmol/L (135-145); Total Protein 6.3 g/dL (6.5-8.0)
--- NOTE | 2020-06-17 23:04 | CT_ITS ---
EXAMINATION: CT CHEST WITHOUT CONTRAST CT ABDOMEN AND PELVIS WITHOUT CONTRAST CLINICAL INFORMATION: Question left lower lobe infiltrate. Question small bowel obstruction. COMPARISON: 05/06/2020 and 05/24/2020 TECHNIQUE: Multidetector volumetric imaging was performed through the chest, abdomen and pelvis without contrast. Sagittal and coronal reformatted images were obtained on the technologist's workstation. Axial MIP volume rendering provided. This CT examination was performed using dose optimization techniques as appropriate, variously including the following: *Automated exposure control *Adjustment of mA and/or kV according to patient size (this includes techniques or standardized protocols for targeted exams where dose is matched to indication/reason for exam; i.e. extremities or head) *Use of iterative reconstruction technique DLP: 633 mGy-cm. FINDINGS: CHEST: Lungs: The central airways are patent. Linear secretions noted in the trachea. There is severe centrilobular and paraseptal emphysema with panlobular appearance in portions of the upper lobes. Patchy groundglass opacities are present within the anterior right upper lobe and in the right middle lobe. There was a similar finding on the previous CT, though these are increased from that time. Bronchiectasis in the lower lungs. Peripheral opacity at the left lung base and in the lingula, likely representing scarring or atelectasis. There is no new separate consolidation. Right basilar atelectasis also noted. No pneumothorax. No pleural effusion. Mediastinum: The heart is of normal size. There is no pericardial effusion. Coronary artery calcifications. No hilar or mediastinal lymphadenopathy. Left internal jugular central venous catheter terminates at the right atrium. Chest Wall/Axilla: No lymphadenopathy. No chest wall mass. Left axillary stent noted. Left axillary surgical clips. ABDOMEN/PELVIS: Liver, Gallbladder, Biliary Tree: The liver is normal in size, shape, and attenuation. No focal hepatic lesion or biliary ductal dilatation is present. Cholecystectomy. Pancreas: Unremarkable. Spleen: Unremarkable. Adrenal Glands: Heterogeneous left adrenal gland nodule is unchanged from prior, measuring 1.7 cm. The right adrenal gland is unremarkable. Kidneys and Ureters: There is no hydronephrosis. Diffuse cysts are seen throughout both kidneys, essentially replacing the renal cortices. There are some lesions measuring more than simple fluid attenuation, similar to prior. Scattered calcifications throughout. Bladder: Partially distended with mild circumferential wall thickening. There is a filling defect in the bladder lumen. This is similar to prior, measuring 1.6 cm. Gastrointestinal Tract: The stomach is distended without wall thickening. Normal caliber small bowel. There is no obstruction. Positioning of the small bowel suggests small bowel malrotation. Anastomotic suture lines are seen in the anterior abdomen and right lower quadrant. No colonic wall thickening or inflammatory change. No free air. No free fluid. Abdominal Wall: Rectus diastases with eventration of the abdominal wall. No separate hernia. Lymphovascular Structures: Lymph nodes: Normal. Vascular: Ectatic appearance of the infrarenal abdominal aorta measuring 2.3 cm AP, similar to prior. Moderate atherosclerotic calcification. Pelvic Viscera: The uterus and adnexa are unremarkable. OSSEOUS STRUCTURES: No suspicious sclerotic or lytic bone lesions are identified. Chronic healed sternal fracture. Degenerative changes of the spine, greatest at the lumbar spine. Advanced degenerative changes of the right shoulder and right hip. Possible avascular necrosis of the left femoral head, with no cortical collapse. CT/CT abdomen pelvis wo con IMPRESSION: 1. Severe emphysema. Patchy groundglass opacities of the right upper and middle lobes are increased from the previous chest CT and may be infectious or inflammatory. No separate left lower lobe new consolidation. There are areas of atelectasis/scarring. 2. There is no bowel obstruction. Somewhat distended stomach. No inflammatory changes of the bowel. Multiple anastomotic sites. 3. Polycystic kidneys. 4. Redemonstration of the filling defect within the bladder suggestive of a mass. This is similar to prior. 5. Unchanged indeterminate left adrenal gland nodule.
[2020-06-17] MEDS: Prochlorperazine Edisylate 10 MG/2 ML VIAL 5 MG IVPUSH (23:48)
[2020-06-18 01:28] VITALS: BP 101/44; PULSE 94; RESP 18; TEMP 36.6; O2SAT 97
== END 2020-06-18 02:07 | disposition home or self-care (01) ==
PROVIDERS: Emergency Provider Student in an Organized Health Care Education/Training Program; PCP Internal Medicine
DX: R11.2 Nausea with vomiting, unspecified (principal); Z79.899 Other long term (current) drug therapy
CPT/HCPCS: 36415; 71045; 71250; 74176; 80053; 85025; 93005; 96374; 99284

== ENCOUNTER → 2020-06-20 14:31 | Outpatient (BNVA) | payer MEDICARE, BC, SELFPAY | PROVIDERS: Visit Provider Internal Medicine Gastroenterology | DX: N18.6 End stage renal disease (principal); K21.9 Gastro-esophageal reflux disease without esophagitis; R19.5 Other fecal abnormalities; R11.0 Nausea; F31.9 Bipolar disorder, unspecified; J44.9 Chronic obstructive pulmonary disease, unspecified; Z71.3 Dietary counseling and surveillance; Z88.6 Allergy status to analgesic agent; Z88.8 Allergy status to other drugs, medicaments and biological substances; Z88.9 Allergy status to unspecified drugs, medicaments and biological substances; Z79.899 Other long term (current) drug therapy | CPT/HCPCS: 99212 ==

== ENCOUNTER 2020-06-29 06:06 | Day surgery (SDC) | payer MEDICARE, BC, SELFPAY ==
[2020-06-20 12:10] VITALS: BMI 20.9
--- NOTE | 2020-06-20 12:21 | P.CONAN_ITS ---
Documented by User: Anni Boldenney 06/20/20 13:43 HPI - Anesthesia Eval Consult details Narrative: 74yo deconditioned F for TUR Bladder Tumor Bladder mass was incidental finding during 05/2020 C admit with C diff and MSSA bacteremia ESRD with HD MWF s/p permacath insertion x2 03/2020 with MAC, TIVA - no anesthesia related issues PMFSH Past Medical History Medical History Abdominal pain Arrhythmia Arthritis AV fistula Bipolar 1 disorder Bowel obstruction Breast cancer Cancer Chronic nausea COPD (chronic obstructive pulmonary disease) Diarrhea ESRD (end stage renal disease) Hx of hypotension Hx of radiation therapy Hypothyroidism Lab test negative for COVID-19 virus Lab test positive for detection of COVID-19 virus MSSA bacteremia Paroxysmal A-fib Poor appetite Positive FIT (fecal immunochemical test) Pulmonary emboli Renal failure SBO (small bowel obstruction) Thyroid disease Vomiting Wears dentures Functional capacity: wheelchair bound Family History Family History Father Dementia Mother Bipolar 1 disorder Brother Heart attack Family history of problems with anesthesia: No Surgical History Surgical History History of abdominal surgery History of appendectomy History of back surgery History of cholecystectomy History of hand surgery History of lumpectomy of left breast History of tonsillectomy Hx of foot surgery History of Problems with Anesthesia: No Social History Social History Are you a primary manager urgent care to a significant other at home: No Do you presently have visiting nurse or other home services: Yes Alcohol intake: never Smoking Status: Former smoker Years Smoked: 50 Smoked in Last 30 Days: No Smoking Quit Date: 2015 Use of substances other than those prescribed or required for medical reasons: No Have you been hit, kicked, punched, or otherwise hurt by someone within the past year? If so, by whom?: No Advance Directives Information Provided: No Recently lost weight without trying: No service: No Current occupational status: disabled Narrative Narrative: Denies recent cold/flu symptoms Wheelchair bound - no CP/SOB at rest, dyspnea with any exertion Pt and report stable since hospital D/C. Fatigue baseline r/t HD Meds Allergies Allergy/AdvReac Type Severity Reaction Status Date / Time adhesive tape Allergy Intermediate Blister Verified 06/20/20 14:32 aspirin Allergy Intermediate RASH Verified 06/20/20 14:32 benztropine Allergy Intermediate RASH Verified 06/20/20 14:32 NSAIDS (Non-Steroidal Allergy Intermediate RASH Verified 06/20/20 14:32 Anti-Inflamma ziprasidone Allergy Unknown UNKNOWN Verified 06/20/20 14:32 Home Medications Medication Instructions Recorded Confirmed Type Eliquis 2.5 mg PO BID 05/21/20 06/20/20 History Multaq 400 mg PO BID 05/21/20 06/20/20 History clonazepam 1.5 mg PO BEDTIME 05/21/20 06/20/20 History clozapine 150 mg PO BEDTIME 05/21/20 06/20/20 History lamotrigine 300 mg PO BEDTIME 05/21/20 06/20/20 History levothyroxine 125 mcg PO QAM 05/21/20 06/20/20 History acetaminophen 650 mg PO BID PRN 05/22/20 06/20/20 History fluticasone propion-salmeterol 1 inh INHALATION BID 05/22/20 06/20/20 History [Wixela Inhub] sevelamer carbonate 800 mg PO TID 05/22/20 06/20/20 History hydroxyzine pamoate 50 mg PO BEDTIME 06/20/20 06/20/20 History Exam Exam Date and Time: June 20, 2020 1221 Height,Weight and Vital Signs: Vital Signs Pulse Rate 93 06/20/20 12:46 Respiratory Rate 20 06/20/20 12:46 Blood Pressure 102/49 L 06/20/20 12:46 Pulse Oximetry 98 06/20/20 12:46 Pertinent Lab Results Pertinent Lab Results: Laboratory Tests 06/17/20 06/17/20 21:52 21:52 WBC 6.3 Hgb 11.7 L D Hct 37.8 D Plt Count 325 Sodium 141 Potassium 3.4 Chloride 98 Carbon Dioxide 32 H Anion Gap 14 BUN 18 H Creatinine 3.97 H Total Bilirubin 0.4 AST 22 D ALT 8 Alkaline Phosphatase 108 D Total Protein 6.3 L D Albumin 3.2 L D Narrative Narrative: EKG 06/17/20: SR with PACs, Nonspecific ST abn ECHO 04/2020: Nml LV size and systolic function, EF 65-70%, Limited 2D assessment but no obious concern for vegetation, mild thickening of aortic valve, mild , mild AR Airway Mallampati Class: III (Small mouth) TM Dist: >3cm Neck ROM: Limited Denture: Upper and Lower Lungs: poor air movement r/t effort. O2 sat wnl Assessment and Plan Assessment Anesthesia Assessment: Anesthesia Plan Discussed (Consent deferred to DOS. Discussed TIVA vs MAC vs Spinal) Documented by User: Harley Rubin MD 06/29/20 07:28 [facility] Past Medical History Medical History Abdominal pain Arrhythmia Arthritis AV fistula Bipolar 1 disorder Bowel obstruction Breast cancer Cancer Chronic nausea COPD (chronic obstructive pulmonary disease) Diarrhea ESRD (end stage renal disease) Hx of hypotension Hx of radiation therapy Hypothyroidism Lab test negative for COVID-19 virus Lab test positive for detection of COVID-19 virus MSSA bacteremia Paroxysmal A-fib Poor appetite Positive FIT (fecal immunochemical test) Pulmonary emboli Renal failure SBO (small bowel obstruction) Thyroid disease Vomiting Wears dentures Family History Family History Father Dementia Mother Bipolar 1 disorder Brother Heart attack Surgical History Surgical History History of abdominal surgery History of appendectomy History of back surgery History of cholecystectomy History of hand surgery History of lumpectomy of left breast History of tonsillectomy Hx of foot surgery Social History Social History Are you a primary manager urgent care to a significant other at home: No Do you presently have visiting nurse or other home services: Yes Alcohol intake: never Smoking Status: Former smoker Years Smoked: 50 Smoked in Last 30 Days: No Smoking Quit Date: 2015 Use of substances other than those prescribed or required for medical reasons: No Have you been hit, kicked, punched, or otherwise hurt by someone within the past year? If so, by whom?: No Advance Directives Information Provided: No Recently lost weight without trying: No service: No Current occupational status: disabled Meds Allergies Allergy/AdvReac Type Severity Reaction Status Date / Time adhesive tape Allergy Intermediate Blister Verified 06/20/20 14:32 aspirin Allergy Intermediate RASH Verified 06/20/20 14:32 benztropine Allergy Intermediate RASH Verified 06/20/20 14:32 NSAIDS (Non-Steroidal Allergy Intermediate RASH Verified 06/20/20 14:32 Anti-Inflamma ziprasidone Allergy Unknown UNKNOWN Verified 06/20/20 14:32 Home Medications Medication Instructions Recorded Confirmed Type Eliquis 2.5 mg PO BID 05/21/20 06/20/20 History Multaq 400 mg PO BID 05/21/20 06/20/20 History clonazepam 1.5 mg PO BEDTIME 05/21/20 06/20/20 History clozapine 150 mg PO BEDTIME 05/21/20 06/20/20 History lamotrigine 300 mg PO BEDTIME 05/21/20 06/20/20 History levothyroxine 125 mcg PO QAM 05/21/20 06/20/20 History acetaminophen 650 mg PO BID PRN 05/22/20 06/20/20 History fluticasone propion-salmeterol 1 inh INHALATION BID 05/22/20 06/20/20 History [Wixela Inhub] sevelamer carbonate 800 mg PO TID 05/22/20 06/20/20 History hydroxyzine pamoate 50 mg PO BEDTIME 06/20/20 06/20/20 History Assessment and Plan Assessment Anesthesia Assessment: Anesthesia Plan Discussed and Chart Reviewed Final Anesthetic Review NPO: Yes ASA Class: III Final Preanesthetic Review: No Changes in Pt Med Stat, Meds/Allgs Chart Reviewed, Consent Obtained/Reviewed and Anes Risks/Benef Reviewed Patient Risk: High Procedure Risk: Low Anesthetic Plan Anesthetic Plan: GA Disposition: Standard PACU
[2020-06-20 12:46] VITALS: BP 102/49; PULSE 93; RESP 20; O2SAT 98
[2020-06-29] VITALS (12 sets, daily range): BP systolic 88–115; BP diastolic 39–84; PULSE 68–81; RESP 16–20; TEMP 36.4–36.6; O2SAT 93–100
[2020-06-29 06:57] LABS: Anion Gap 12 (12-20); Carbon Dioxide 34 mmol/L (22-29); Chloride 100 mmol/L (96-108); Potassium 3.7 mmol/l (3.3-5.1); Sodium 142 mmol/L (135-145)
--- NOTE | 2020-06-29 07:02 | PC.NURSE ---
CO2 34, ANESTHESIA ROD DAMON MADE AWARE, OKAY TO PROCEED.
[2020-06-29] MEDS: 0.9 % Sodium Chloride 1,000 ML 50 ML IVCONT (07:11)
[2020-06-29] MEDS: levoFLOXacin 500 MG TABLET PO (08:09)
--- NOTE | 2020-06-29 08:14 | MHC.SHP ---
Pre-Procedural Eval Section A The patient is an INPATIENT: No Changes since office visit: No Cold of Flu in the past 2 weeks, No New Medical Problems, No Changes in Medication and No Patient answered all questions The History & Physical has been completed within 30 days and I have reviewed it.: Yes Section B Chief Complaint: bladder ca Allergies: Allergies Allergy/AdvReac Type Severity Reaction Status Date / Time adhesive tape Allergy Intermediate Blister Verified 06/20/20 14:32 aspirin Allergy Intermediate RASH Verified 06/20/20 14:32 benztropine Allergy Intermediate RASH Verified 06/20/20 14:32 NSAIDS (Non-Steroidal Allergy Intermediate RASH Verified 06/20/20 14:32 Anti-Inflamma ziprasidone Allergy Unknown UNKNOWN Verified 06/20/20 14:32 Plan Patient has been examined and remains a candidate for the planned procedure
--- NOTE | 2020-06-29 08:41 | P.OP_ITS ---
Operative Note Operative Note Date of Service: 06/29/20 Narrative: PreOperative Diagnosis: bladder tumor Post Operative Diagnosis: multiple bladder tumors 1 large, 1 small Procedure: transurethral resection of bladder tumor large Surgeon: Dr Marshal Gould Anesthesia: general Indications for procedure: this is a 74-year-old female. Has multiple medical conditions. Presented with hematuria. Found to have a 1.[address] imaging. Recommendation for cystoscopy with transurethral section of bladder tumor. Risks and benefits have been discussed. Anticoagulation has been held. Procedure: After informed consent was verified patient brought to the operating room placed in a supine position. Anesthesia administered per protocol. Patient placed in modified dorsal lithotomy position and prepped and draped in a sterile fashion. Safety pause time-out performed. Antibiotics have been given. Twenty-six Indonesian resectoscope placed per urethra. On examination of the bladder there was seen to be a large greater than 3 cm tumor on the right side wall. There was also a small 1 cm tumor over the left ureteric orifice. The large tumor was resected on the right side wall. This was taken down to a stalk base. This area was resected and fulgurated. The did not appear to be any deep invasion. Prominent neovascular vessels were fulgurated. The small tumor over the left ureteric orifice was then sharply dissected. Minimal cautery was used. The bladder was drained and specimen removed. She tolerated the procedure well and was transferred in a stable condition to the recovery area. Pathology: Bladder tumor x2 Drains: none
--- NOTE | 2020-06-29 08:41 | PM.OP ---
Brief Operative Note Pre-op diagnosis: Bladder tumor Post-op diagnosis: same Procedure: transurethral resection of bladder tumor times to, large Implants: none Surgeon: Marshal Gould MD Estimated blood loss (mL): 0 Pathology: other ( bladder tumor) Condition: stable Disposition: same day
--- NOTE | 2020-06-29 09:25 | PC.NURSE ---
0923 O2 REESTABLISHED AT 2 L VIA MASK FOR A COUPLE DESATS TO 90% RA RESP SL IRREG BUT DEEP ORAL AIRWAY IN PLACE EYES FLUTTER TO TACTILE O2 SATS 95 % 2L
--- NOTE | 2020-06-29 10:38 | HO.POSTANES ---
Post Anesthesia Evaluation Post Anesthesia Evaluation Vital Signs: Vital Signs Temp Pulse Resp BP Pulse Ox 06/29/20 10:23 73 16 103/55 L 93 06/29/20 10:08 73 16 97/52 L 93 06/29/20 09:53 71 16 115/53 L 99 06/29/20 09:38 69 16 98/49 L 100 06/29/20 09:33 68 16 92/43 L 97 06/29/20 09:18 69 16 91/41 L 94 06/29/20 09:13 68 16 88/40 L 99 06/29/20 09:08 68 16 88/39 L 99 06/29/20 09:03 68 16 95/42 L 100 06/29/20 08:58 68 16 91/40 L 100 06/29/20 08:53 98 F 69 18 89/39 L 100 06/29/20 06:39 97.6 F 81 20 98/84 94 Anesthesia: General Mental Status: Awake Pain Control: Satisfactory Nausea/Vomiting: None Hydration: Adequate Anesthesia-Related Issues: No Anes. Related Issues
--- NOTE | 2020-06-29 10:44 | PC.NURSE ---
1030PT DRESSED BY 2 RNS, UPDATE TO CARMEN OCHOA RN, 3 PERSON LIFT TO WC USING GAIT BELT
== END 2020-06-29 11:30 | disposition home or self-care (01) ==
PROVIDERS: Nurse Practitioner; PCP Internal Medicine; Visit Provider Urology
PROC: 0TBB8ZZ Excision of Bladder, Via Natural or Artificial Opening Endoscopic (ICD-10-PCS; CPT 52235; principal; 2020-06-29 07:30)
DX: C67.9 Malignant neoplasm of bladder, unspecified (principal); C67.6 Malignant neoplasm of ureteric orifice; R31.9 Hematuria, unspecified; Z85.3 Personal history of malignant neoplasm of breast; I48.0 Paroxysmal atrial fibrillation; J44.9 Chronic obstructive pulmonary disease, unspecified; N18.6 End stage renal disease; Z99.2 Dependence on renal dialysis; Z79.01 Long term (current) use of anticoagulants; Z92.3 Personal history of irradiation; Z90.49 Acquired absence of other specified parts of digestive tract; Z86.19 Personal history of other infectious and parasitic diseases; Z79.899 Other long term (current) drug therapy; Z91.040 Latex allergy status; Z88.8 Allergy status to other drugs, medicaments and biological substances; Z87.891 Personal history of nicotine dependence
CPT/HCPCS: 52235; 80051; 88112; 88307; J0330; J1100; J2250; J2370; J2405; J3010

== ENCOUNTER → 2020-07-05 13:59 | Outpatient (BNVA) | payer MEDICARE, BC, SELFPAY | PROVIDERS: PCP Internal Medicine; Referring Provider Internal Medicine; Visit Provider Urology | DX: C67.9 Malignant neoplasm of bladder, unspecified (principal); Z98.890 Other specified postprocedural states; Z87.891 Personal history of nicotine dependence | CPT/HCPCS: Q3014 ==

== ENCOUNTER 2020-07-10 22:51 | Emergency (ER) | payer MEDICARE, BC, SELFPAY ==
[2020-07-10 23:06] VITALS: BP 122/81; PULSE 95; RESP 18; TEMP 36.4; O2SAT 98; BMI 22.8
--- NOTE | 2020-07-10 23:12 | ECG_ITS ---
Test Reason : VOMITING Blood Pressure : / mmHG Vent. Rate : 094 BPM Atrial Rate : 094 BPM P-R Int : 152 ms QRS Dur : 082 ms QT Int : 392 ms P-R-T Axes : 052 031 054 degrees QTc Int : 490 ms Normal sinus rhythm Nonspecific ST abnormality Abnormal ECG When compared with ECG of 17-JUN-2020 20:33, Premature atrial complexes are no longer Present Nonspecific T wave abnormality no longer evident in Inferior leads ST less depressed in Lateral leads Referred By: Ever Quispe Electronically Signed By:STANLEY BAL MD
[2020-07-10] MEDS: Lidocaine HCl 2 % MPF 5 ML VIAL INFILTRATI (23:53)
--- NOTE | 2020-07-10 23:54 | PC.NURSE ---
lidocaine given by provider for iv insertion.
[2020-07-11] VITALS: BP 103/41; PULSE 90; RESP 16; O2SAT 93
[2020-07-11 00:32] LABS: Basophils Absolute Auto 0.1 X10*3/uL (0.0-0.2); Basophils Percent Auto 0.8 % (0-2); Eosinophils Absolute Auto 0.7 X10*3/uL (0.0-0.4); Eosinophils Percent Auto 7.3 % (0-4); Hematocrit 36.4 % (37-47); Hemoglobin 11.3 g/dl (12.0-16.0); Imm Gran Abs Auto 0.03 X10*3/uL (0.00-0.03); Imm Gran Pct Auto 0.3 % (0.0-0.4); Lymphocytes Absolute Auto 1.4 X10*3/uL (1.2-4.9); MANUAL DIFF FLAG NO; Mean Corpuscular Hemoglobin 29.7 pg (27.0-33.0); Mean Corpuscular Volume 95.8 fL (80-98); Mean Platelet Volume 9.8 fL (9.4-12.3); Monocytes Absolute Auto 1.1 X10*3/uL (0.1-1.2); Monocytes Percent Auto 11.7 % (2-11); Neutrophils Absolute Auto 5.9 X10*3/uL (2.0-8.3); Neutrophils Percent Auto 64.9 % (45-73); Platelet Count 234 X10*3/uL (160-400); Red Cell Distribution Width 15.9 % (11.0-16.0); White Blood Count 9.2 X10*3/uL (4.8-10.8)
[2020-07-11] MEDS: ondansetron HCL 4 MG/2 ML VIAL IVPUSH (00:36)
[2020-07-11 00:58] LABS: Troponin-I High Sensitivity 14.5 ng/L (<3.5-17.0)
--- NOTE | 2020-07-11 01:26 | ED_ITS ---
HPI - Nausea/Vomiting/Diarrhea General Chief complaint: Nausea/Vomiting/Diarrhea Stated complaint: Vomiting/Diarrhea Time Seen by Provider: 07/10/20 23:06 Source: patient Mode of arrival: EMS History of Present Illness HPI Narrative: 74-year-old female with history of multiple bowel obstructions here for nausea vomiting and recent diarrhea. Patient states of generalized lower abdominal pain. Denies fevers or chills. Denies blood in vomit or stool. Patient needs has been following up with GI in regards to her nausea has been going on for 1 month. Denies dizziness denies diaphoresis MD elicited complaint: nausea, vomiting and diarrhea Related Data Home Medications Medication Instructions Recorded Confirmed Eliquis 2.5 mg PO BID 05/21/20 06/20/20 Multaq 400 mg PO BID 05/21/20 06/20/20 clonazepam 1.5 mg PO BEDTIME 05/21/20 06/20/20 clozapine 150 mg PO BEDTIME 05/21/20 06/20/20 lamotrigine 300 mg PO BEDTIME 05/21/20 06/20/20 levothyroxine 125 mcg PO QAM 05/21/20 06/20/20 acetaminophen 650 mg PO BID PRN 05/22/20 06/20/20 fluticasone propion-salmeterol 1 inh INHALATION BID 05/22/20 06/20/20 [Wixela Inhub] sevelamer carbonate 800 mg PO TID 05/22/20 06/20/20 hydroxyzine pamoate 50 mg PO BEDTIME 06/20/20 06/20/20 Previous Rx's Medication Instructions Recorded lactobacillus combination no.9 4 4,000 mmu cells PO DAILY #90 cap 06/08/20 billion cell capsule prochlorperazine maleate 5 mg PO QID PRN 3 Days #12 tab 06/18/20 [Compazine] trimethoprim 100 mg PO DAILY 7 Days #7 tab 06/29/20 Allergies Allergy/AdvReac Type Severity Reaction Status Date / Time adhesive tape Allergy Intermediate Blister Verified 07/10/20 23:10 aspirin Allergy Intermediate RASH Verified 07/10/20 23:10 benztropine Allergy Intermediate RASH Verified 07/10/20 23:10 NSAIDS (Non-Steroidal Allergy Intermediate RASH Verified 07/10/20 23:10 Anti-Inflamma ziprasidone Allergy Unknown UNKNOWN Verified 07/10/20 23:10 Review of Systems Review of Systems: Constitutional : No Weight loss, No Fever, No Chills, No Night Sweats, No Fatigue, No Malaise ENT/Mouth : No Hearing loss, No Ear Pain, No Nasal Congestion, No Sinus Pain, No Hoarseness, No sore throat, No Rhinorrhea, No Swallowing Difficulty Eyes: No Eye Pain, No Swelling, No Redness, No Foreign Body, No Discharge, No Vision Changes Cardiovascular : No Chest Pain, No SOB, No Dyspnea on Exertion, No Orthopnea, No Edema, No Palpitations Respiratory : No Cough, No Sputum, No Wheezing, No Smoke Exposure, No Dyspnea Gastrointestinal : Positive Nausea, positive Vomiting, No Diarrhea, No Constipation, positive abdominal Pain, No Hematochezia, No Melena Genitourinary : no irregular bleeding, No Dysuria, No Urinary Frequency, No Hematuria, No Urinary Incontinence, No Urgency, No Flank Pain, No Urinary Flow Changes, No Hesitancy Musculoskeletal : No joint pain, No Myalgias, No Joint Swelling Skin : No Skin Lesions, No rash Neuro : No Weakness, No Numbness, No Paresthesias, No Loss of Consciousness, No Dizziness, No Headache Psych : No Anxiety/Panic, No Depression, No SI/HI/AH/VH, No Social Issues, Heme/Lymph: No Bruising, No Bleeding,No Lymphadenopathy Endocrine : No Polyuria, No Polydipsia, No Temperature Intolerance PMFSH Past Medical History Medical History Abdominal pain Arrhythmia Arthritis AV fistula Bipolar 1 disorder Bowel obstruction Breast cancer Cancer Chronic nausea COPD (chronic obstructive pulmonary disease) Diarrhea ESRD (end stage renal disease) Hx of hypotension Hx of radiation therapy Hypothyroidism Lab test negative for COVID-19 virus Lab test positive for detection of COVID-19 virus MSSA bacteremia Paroxysmal A-fib Poor appetite Positive FIT (fecal immunochemical test) Pulmonary emboli Renal failure SBO (small bowel obstruction) Thyroid disease Vomiting Wears dentures Surgical History History of abdominal surgery History of appendectomy History of back surgery History of cholecystectomy History of hand surgery History of lumpectomy of left breast History of tonsillectomy Hx of foot surgery Family History Family History Father Dementia Mother Bipolar 1 disorder Brother Heart attack Social History Social History Alcohol intake: never Smoking Status: Former smoker Years Smoked: 50 Advance Directives: No Advance Directives Information Provided: No service: No Current occupational status: disabled Physical Exam Vital Signs: Vital Signs: Last Vital Signs Temp 97.6 F 07/10/20 23:06 Pulse 99 07/11/20 04:00 Resp 16 07/11/20 04:00 BP 119/73 07/11/20 05:04 Pulse Ox 93 07/11/20 02:00 Body Mass Index 22.8 Reviewed Appearance: Alert. Oriented X3. No acute distress. Eyes: Pupils equal, round and reactive to light. ENT: Pharynx normal. Neck: Normal inspection. Neck supple. No lymph nodes noted. No crepitus CVS: Normal heart rate and rhythm. Pulses normal. Normal S1 and S2. Left chest for Respiratory: No respiratory distress. Breath sounds normal. No Wheezing. No rales Abdomen: Soft and positive tender bilateral lower. No rigidity. No distention. good BS x4 Skin: Skin warm and dry. Normal skin color. Normal skin turgor. Extremities: No lower extremity edema. Neurovascular intact to all extremities. No Lacerations. No Rash Neuro: Oriented X 3. No motor deficit. No sensory deficit. Moving all extermities. No slurred speech. Course Reevaluation(s) Reevaluation #1: Repeat abdominal exam without signs of peritonitis patient without active vomiting Time: 02:15 MDM - Nausea/Vomiting/Diarrhea Differential Diagnosis Differential diagnosis: Likely gastroenteritis (Bowel obstruction bowel perforation) Medical Records Medical records narrative: 74-year-old female with chief complaint of nausea vomiting abdominal pain. CT scan abdomen pelvis negative. Patient has been following up chronically with GI in regards to her nausea with outpatient EGD. Laboratory work within normal limits. Patient on dialysis to have dialysis later today. I doubt this patient is having obstruction, diverticulitis, acute coronary syndrome, or pneumonia. Patient comfortable to go home tolerating p.o. intake Lab Data Attestation: I reviewed the patient's lab results. Result diagrams: 07/11/20 00:28 07/11/20 02:27 Labs: Lab Results 1107/11/20 07/11/20 Range/Units 00:27 00:28 00:28 WBC 9.2 (4.8-10.8) X10*3/uL RBC 3.80 L (4.20-5.50) X10*6/uL Hgb 11.3 L (12.0-16.0) g/dl Hct 36.4 L (37-47) % MCV 95.8 (80-98) fL MCH 29.7 (27.0-33.0) pg MCHC 31.0 (31.0-35.0) g/dl RDW 15.9 (11.0-16.0) % Plt Count 234 D (160-400) X10*3/uL MPV 9.8 (9.4-12.3) fL Immature Gran % (Auto) 0.3 (0.0-0.4) % Neut % (Auto) 64.9 (45-73) % Lymph % (Auto) 15.0 L (20-40) % [place] % (Auto) 11.7 H (2-11) % Eos % (Auto) 7.3 H (0-4) % Baso % (Auto) 0.8 (0-2) % Lymph # (Auto) 1.4 (1.2-4.9) X10*3/uL [place] # (Auto) 1.1 (0.1-1.2) X10*3/uL Eos # (Auto) 0.7 H (0.0-0.4) X10*3/uL Baso # (Auto) 0.1 (0.0-0.2) X10*3/uL Abs Immat Gran (auto) 0.03 (0.00-0.03) X10*3/uL Absolute Neuts (auto) 5.9 (2.0-8.3) X10*3/uL Absolute Nucleated RBC 0.000 (0.0-0.012) X10*3/uL Nucleated RBC % (auto) 0.0 (0.0-0.2) /100WBC Hold Blue Top SEE NOTE Sodium Potassium Chloride Carbon Dioxide Anion Gap BUN Creatinine Estim Creat Clear Calc Estimated GFR Random Glucose Calcium Total Bilirubin Direct Bilirubin AST ALT Alkaline Phosphatase Troponin I High Sens 14.5 (<3.5-17.0) ng/L Total Protein Albumin Lipase (8-78) U/L 07/11/20 07/11/20 07/11/20 Range/Units 00:28 02:27 02:27 WBC (4.8-10.8) X10*3/uL RBC (4.20-5.50) X10*6/uL Hgb (12.0-16.0) g/dl Hct (37-47) % MCV (80-98) fL MCH (27.0-33.0) pg MCHC (31.0-35.0) g/dl RDW (11.0-16.0) % Plt Count (160-400) X10*3/uL MPV (9.4-12.3) fL Immature Gran % (Auto) (0.0-0.4) % Neut % (Auto) (45-73) % Lymph % (Auto) (20-40) % [place] % (Auto) (2-11) % Eos % (Auto) (0-4) % Baso % (Auto) (0-2) % Lymph # (Auto) (1.2-4.9) X10*3/uL [place] # (Auto) (0.1-1.2) X10*3/uL Eos # (Auto) (0.0-0.4) X10*3/uL Baso # (Auto) (0.0-0.2) X10*3/uL Abs Immat Gran (auto) (0.00-0.03) X10*3/uL Absolute Neuts (auto) (2.0-8.3) X10*3/uL Absolute Nucleated RBC (0.0-0.012) X10*3/uL Nucleated RBC % (auto) (0.0-0.2) /100WBC Hold Blue Top Sodium Cancelled Cancelled 139 Potassium Cancelled Cancelled 4.4 Chloride Cancelled Cancelled 100 Carbon Dioxide Cancelled Cancelled 25 Anion Gap Cancelled Cancelled 18 BUN Cancelled Cancelled 29 H D Creatinine Cancelled Cancelled 4.25 H* Estim Creat Clear Calc Cancelled Cancelled 9.4 Estimated GFR Cancelled Cancelled 10 Random Glucose Cancelled Cancelled 79 Calcium Cancelled Cancelled 10.0 Total Bilirubin Cancelled 0.2 Direct Bilirubin Cancelled < 0.2 AST Cancelled 19 ALT Cancelled 18 Alkaline Phosphatase Cancelled 103 Troponin I High Sens (<3.5-17.0) ng/L Total Protein Cancelled 5.8 L Albumin Cancelled 3.0 L Lipase 83 H (8-78) U/L ECG Data Attestation: I personally reviewed and interpreted this ECG as follows: Interpretation: 94-beats per minute. Normal sinus rhythm. Normal axis. No ST- T changes Discharge Plan Discharge Clinical Impression: Nausea & vomiting Qualifiers: Vomiting type: unspecified Vomiting Intractability: unspecified Qualified Code(s): R11.2 - Nausea with vomiting, unspecified Abdominal pain Qualifiers: Abdominal location: generalized Qualified Code(s): R10.84 - Generalized abdominal pain Patient Disposition: Home, Self-Care Instructions: Acute Nausea and Vomiting (ED) Additional Instructions: Thank you for visiting the emergency department today. If your symptoms worsen or do not resolve completely please return to the emergency department immediately or call 911. if he have any questions please call your primary care physician Prescriptions: No Action Adult 50 Plus Probiotic 4 billion cell capsule 4,000 mmu cells PO DAILY Qty: 90 RF: 0 hydroxyzine pamoate 50 mg capsule 50 mg PO BEDTIME RF: 0 trimethoprim 100 mg tablet 100 mg PO DAILY 7 Days Qty: 7 RF: 0 prochlorperazine maleate [Compazine] 5 mg tablet 5 mg PO QID PRN (Reason: nausea and vomiting) 3 Days Qty: 12 RF: 0 lamotrigine 150 mg tablet 300 mg PO BEDTIME RF: 0 clozapine 100 mg tablet 150 mg PO BEDTIME RF: 0 clonazepam 1 mg tablet 1.5 mg PO BEDTIME RF: 0 levothyroxine 125 mcg tablet 125 mcg PO QAM RF: 0 Multaq 400 mg tablet 400 mg PO BID RF: 0 Eliquis 2.5 mg tablet 2.5 mg PO BID RF: 0 acetaminophen 325 mg Tablet 650 mg PO BID PRN (Reason: Pain (Scale Score 1-3)) RF: 0 fluticasone propion-salmeterol [Wixela Inhub] 500-50 mcg/dose Blister With Device 1 inh INHALATION BID RF: 0 sevelamer carbonate 800 mg Tablet 800 mg PO TID RF: 0 Referrals: Gabriel Acosta MD [Primary Care Provider] - 2 days Interventions: ED Discharge Assessment Last Done: 07/11/20 05:10 Discharge Date/Time: 07/11/20 05:11
[2020-07-11 02:00] VITALS: BP 97/52; PULSE 100; RESP 16; O2SAT 93
--- NOTE | 2020-07-11 02:25 | PC.NURSE ---
ns ordered at 2315 was not given per doctors verbal order. pt is a dialysis pt and not to give additional fluids at this time.
--- NOTE | 2020-07-11 02:27 | PC.NURSE ---
pt very difficult stick and phebotomy at bedside to draw the labs at this time.
--- NOTE | 2020-07-11 03:06 | CT_ITS ---
EXAMINATION: CT ABDOMEN AND PELVIS WITH CONTRAST CLINICAL INFORMATION: Elevated creatinine. Abdominal pain. COMPARISON: 06/17/2020 TECHNIQUE: Multidetector volumetric images were obtained from the superior aspect of the liver through the pubic symphysis following administration 85 mL of Omnipaque 350 intravenous contrast. Sagittal and coronal reformatted images were obtained on the technologist's workstation. Oral contrast: No This CT examination was performed using dose optimization techniques as appropriate, variously including the following: *Automated exposure control *Adjustment of mA and/or kV according to patient size (this includes techniques or standardized protocols for targeted exams where dose is matched to indication/reason for exam; i.e. extremities or head) *Use of iterative reconstruction technique DLP: 645 mGy-cm FINDINGS: LUNG BASES: Groundglass opacities at the lung bases with scattered cysts. Subpleural reticulation and nodularity, similar to prior. Enlarged heart with coronary artery calcification. LIVER, GALLBLADDER, AND BILIARY TREE: The liver is normal in size, shape, and attenuation. No focal hepatic lesion. Status post cholecystectomy. Mild intrahepatic biliary ductal dilatation is unchanged. No ductal filling defect. PANCREAS: Unremarkable. SPLEEN: Unremarkable. ADRENAL GLANDS: The right adrenal gland is unremarkable. Unchanged left adrenal gland nodule measuring 1.2 cm. The nodule is heterogeneous and nonspecific. KIDNEYS AND URETERS: Normal positioning and size of the kidneys. There is diffuse bilateral cortical thinning. No hydronephrosis. Numerous cysts are seen throughout both kidneys. Scattered associated calcifications again noted. BLADDER: Unremarkable. GASTROINTESTINAL TRACT: The stomach is unremarkable. Normal caliber small bowel. No obstruction. Right mid abdominal anastomosis noted. No colonic wall thickening or acute inflammation. No free air. No free fluid. ABDOMINAL WALL: No significant hernia is appreciated. Rectus diastases. LYMPH NODES: Normal. VASCULAR: There is a ectasia of the infrarenal abdominal aorta. Moderate atherosclerotic calcifications. PELVIC VISCERA: Uterus and adnexa are unremarkable. OSSEOUS STRUCTURES: No acute or suspicious osseous abnormality. Degenerative changes throughout the spine. Vacuum disc phenomenon at the lower lumbar spine. Degenerative changes of both hips. [id number] appearance of the right hip. CT/CT abdomen pelvis w con IMPRESSION: No acute findings of the abdomen or pelvis. No inflammatory changes. Diffuse renal cortical thinning with multiple cysts present.
[2020-07-11 03:19] LABS: Alanine Aminotransferase 18 U/L (0-31); Alkaline Phosphatase 103 U/L (39-117); Anion Gap 18 (12-20); Aspartate Amino Transferase 19 U/L (5-31); Bilirubin Direct < 0.2 mg/dL (0.0-0.5); Bilirubin Total 0.2 mg/dL (0.0-1.0); Blood Urea Nitrogen 29 mg/dL (9-16); Carbon Dioxide 25 mmol/L (22-29); Chloride 100 mmol/L (96-108); Creatinine Clr Calc Pharmacy 9.4; Estimated Glomerular Filt Rate 10; Glucose Random 79 mg/dL (60-115); Lipase 83 U/L (8-78); Potassium 4.4 mmol/l (3.3-5.1); Sodium 139 mmol/L (135-145); Total Protein 5.8 g/dL (6.5-8.0)
[2020-07-11] MEDS: Lidocaine HCl 2 % MPF 5 ML VIAL INFILTRATI (03:42)
--- NOTE | 2020-07-11 03:42 | PC.NURSE ---
lidocaind given by dr escobar. iv to right ac bubbling with injection of fluids.
--- NOTE | 2020-07-11 03:50 | PC.NURSE ---
pt taken to ct at this time. new iv inplace by dr escobar using ultra sound.
[2020-07-11 04:00] VITALS: BP 97/52; PULSE 99; RESP 16
[2020-07-11] MEDS: iohexoL 350 MG/ML 100 ML INFUS..BTL 85 ML IV (04:06)
--- NOTE | 2020-07-11 05:01 | PC.NURSE ---
pt unable to void due to she is a dyalsis pt
[2020-07-11 05:04] VITALS: BP 119/73
== END 2020-07-11 05:11 | disposition home or self-care (01) ==
PROVIDERS: Emergency Provider Emergency Medicine; PCP Internal Medicine
DX: R10.84 Generalized abdominal pain (principal); R11.2 Nausea with vomiting, unspecified; Z79.899 Other long term (current) drug therapy
CPT/HCPCS: 36415; 74177; 80048; 80076; 83690; 84484; 85025; 93005; 96374; 96375; 99284; J2405; Q9967

== ENCOUNTER 2020-07-27 00:15 | Emergency (ER) | payer MEDICARE, BC, SELFPAY ==
[2020-07-27 00:47] VITALS: BP 119/67; PULSE 95; RESP 18; TEMP 36.4; O2SAT 96; BMI 22.2
--- NOTE | 2020-07-27 01:04 | ED_ITS ---
HPI - Nausea/Vomiting/Diarrhea General Chief complaint: Nausea/Vomiting/Diarrhea Stated complaint: VOMITING/DIARRHEA Time Seen by Provider: 07/27/20 00:46 Source: patient Mode of arrival: ambulatory Limitations: other (Patient is very soft-spoken and very hard to hear, she does answer questions appropriately) History of Present Illness HPI Narrative: 74-year-old female who presents to the emergency department for evaluation of vomiting, diarrhea and weakness. The patient states that she has been vomiting every other day for the last 2 months. She states that she vomits multiple times a day but does not notice any blood in the vomit. She is also complaining of diarrhea x2 months. She says she moves her bowels 2 to 3 times a day. She describes the bowel movements as loose and watery. She has not notice d any blood in the bowel movements. She states that she is eating and drinking. She states she is feeling very fatigued. The patient is a dialysis patient and is dialyzed on Friday, Friday and Friday. The patient was brought here by her and her says she did get dialyzed this morning. Related Data Home Medications Medication Instructions Recorded Confirmed Eliquis 2.5 mg PO BID 05/21/20 06/20/20 Multaq 400 mg PO BID 05/21/20 06/20/20 clonazepam 1.5 mg PO BEDTIME 05/21/20 06/20/20 clozapine 150 mg PO BEDTIME 05/21/20 06/20/20 lamotrigine 300 mg PO BEDTIME 05/21/20 06/20/20 levothyroxine 125 mcg PO QAM 05/21/20 06/20/20 acetaminophen 650 mg PO BID PRN 05/22/20 06/20/20 fluticasone propion-salmeterol 1 inh INHALATION BID 05/22/20 06/20/20 [Wixela Inhub] sevelamer carbonate 800 mg PO TID 05/22/20 06/20/20 hydroxyzine pamoate 50 mg PO BEDTIME 06/20/20 06/20/20 Previous Rx's Medication Instructions Recorded lactobacillus combination no.9 4 4,000 mmu cells PO DAILY #90 cap 06/08/20 billion cell capsule prochlorperazine maleate 5 mg PO QID PRN 3 Days #12 tab 06/18/20 [Compazine] trimethoprim 100 mg PO DAILY 7 Days #7 tab 06/29/20 Allergies Allergy/AdvReac Type Severity Reaction Status Date / Time adhesive tape Allergy Intermediate Blister Verified 07/10/20 23:10 aspirin Allergy Intermediate RASH Verified 07/10/20 23:10 benztropine Allergy Intermediate RASH Verified 07/10/20 23:10 NSAIDS (Non-Steroidal Allergy Intermediate RASH Verified 07/10/20 23:10 Anti-Inflamma ziprasidone Allergy Unknown UNKNOWN Verified 07/10/20 23:10 Review of Systems Review of Systems: Yes all other systems are reviewed and are negative Neurologic: Reports Abnormal speech present [facility] Past Medical History [facility] Narrative: The patient lives at home with her . She denies tobacco, alcohol or drug use Medical History Abdominal pain Arrhythmia Arthritis AV fistula Bipolar 1 disorder Bowel obstruction Breast cancer Cancer Chronic nausea COPD (chronic obstructive pulmonary disease) Diarrhea ESRD (end stage renal disease) Hx of hypotension Hx of radiation therapy Hypothyroidism Lab test negative for COVID-19 virus Lab test positive for detection of COVID-19 virus MSSA bacteremia Paroxysmal A-fib Poor appetite Positive FIT (fecal immunochemical test) Pulmonary emboli Renal failure SBO (small bowel obstruction) Thyroid disease Vomiting Wears dentures Surgical History History of abdominal surgery History of appendectomy History of back surgery History of cholecystectomy History of hand surgery History of lumpectomy of left breast History of tonsillectomy Hx of foot surgery Family History Family History Father Dementia Mother Bipolar 1 disorder Brother Heart attack Social History Social History Alcohol intake: never Smoking Status: Former smoker Years Smoked: 50 Advance Directives: No Advance Directives Information Provided: No service: No Current occupational status: disabled Physical Exam Vital Signs: Vital Signs: Last Vital Signs Temp 97.6 F 07/27/20 00:47 Pulse 95 07/27/20 00:47 Resp 18 07/27/20 00:47 BP 119/67 07/27/20 00:47 Pulse Ox 96 12/10/20 00:47 Body Mass Index 22.2 Const: General: cooperative, no acute distress, alert and awake Orientation/consciousness: oriented to person and oriented to place HENMT: Head: Yes normal to inspection, Yes normocephalic and Yes atraumatic Ears: external ears normal General nose exam: Normal external nose present Face and sinus: Yes normal facial exam Mouth: Normal oral and palatal mucosa present Throat: Yes posterior oropharynx normal Eyes: General: appearance normal, both eyes and all related structures Periorbital: periorbital findings normal Eyelids: Yes eyelids normal Conjunctivae: conjunctivae normal Sclerae: sclerae normal Corneas: corneas normal Pupils: Equal, round and reactive pupils present Direct Ophthalmoscopy: normal light reflex Neck: Neck: Yes normal visual inspection and Yes supple Lymphatic: no lymphadenopathy noted Chest: Chest palpation & inspection: normal inspection of the chest, normal palpation of entire chest wall and other (Left chest dialysis catheter) Resp: Effort & Inspection: normal respiratory effort, abnormal respiratory pattern, no audible wheezes and no respiratory distress Auscultation: clear to auscultation bilaterally, no crackles, no rales, no rhonchi and no wheezes Cardio: Rate: regular rate Rhythm: regular rhythm Heart sounds: S1 normal heart sound present, S2 normal heart sound present and no murmurs GI: Inspection: Yes distended (Mild) Palpation (GI): Soft to palpation, Tenderness to palpation present (GI) (Diffuse), no guarding and No hepatosplenomegaly present Auscultation: normal bowel sounds : General: Yes no CVA tenderness Back/Spine/Pelvis: Back: no CVA tenderness Skin: General skin exam: no rashes or lesions noted Lesions: no lesions Rashes: no rashes Wounds: no wounds Neuro: General: oriented to person and oriented to place Cranial nerves: Yes CN's II-XII intact bilaterally and Yes Equal, round and reactive pupils pr esent Cognition (Neuro): normal cognition Speech: Abnormal speech present Extrem: General: Yes normal to inspection, Yes full ROM, Yes no pedal edema and Yes no calf tenderness Psych: Appearance: grossly normal Mental Status: mental status grossly normal Speech and movement: Clear speech present Affect: normal affect Thought process: Normal thought process present Course Course Course Narrative: 74-year-old female with a history of end-stage renal disease who presents emergency department for evaluation of abdominal pain, vomiting and diarrhea. Physical examination is unremarkable. I did order an abdominal pain workup on this patient. 0300: The patient's laboratory evaluation is consistent with her end-stage renal disease otherwise is unremarkable. I did attempt to reach the patient's earlier and left a message on his voicemail. The called me back and he told me that he was concerned that the patient had increased abdominal pain with large volume of emesis which is unusual for her. She states that she usually throws up once or twice every other day 2-3 days and today's amount of emesis seemed to be unusual for the patient. He also told me that the patient complained of increased abdominal pain above her baseline and he was concerned that the patient may have a bowel obstruction. After I obtained this information, I did order a CT scan of the abdomen pelvis to rule out obstruction. If the CT scan is negative for bowel obstruction, then the patient can be discharged home. 0315: The patient's care was turned over to my colleague, Dr. Kamala Flower. MDM - Nausea/Vomiting/Diarrhea MDM Narrative Medical decision making narrative: 74-year-old female history of end-stage renal disease dialyzed on Friday, Friday and Friday, chronic abdominal pain, bowel obstructions, who presents to the emergency department for evaluation of nausea, vomiting and diarrhea x2 months, patient has had similar presentations in the past and was last seen in the emergency department on 07/11/2020 and her workup was negative including a negative CT scan of the abdomen and pelvis. Physical examination revealed mild abdominal distention with diffuse abdominal tenderness. I did order laboratory evaluation this patient. Patient is also here to get Zofran 4 mg IV. Lab Data Result diagrams: 07/27/20 02:09 07/27/20 02:09 Labs: Lab Results 07/27/20 07/27/20 07/27/20 Range/Units 02:09 02:09 02:20 WBC 7.3 (4.8-10.8) X10*3/uL RBC 3.80 L (4.20-5.50) X10*6/uL Hgb 11.4 L (12.0-16.0) g/dl Hct 35.6 L (37-47) % MCV 93.7 (80-98) fL MCH 30.0 (27.0-33.0) pg MCHC 32.0 (31.0-35.0) g/dl RDW 16.0 (11.0-16.0) % Plt Count 250 (160-400) X10*3/uL MPV 9.1 L (9.4-12.3) fL Immature Gran % (Auto) 0.4 (0.0-0.4) % Neut % (Auto) 65.3 (45-73) % Lymph % (Auto) 15.4 L (20-40) % Potter % (Auto) 12.9 H (2-11) % Eos % (Auto) 5.0 H (0-4) % Baso % (Auto) 1.0 (0-2) % Lymph # (Auto) 1.1 L (1.2-4.9) X10*3/uL Potter # (Auto) 1.0 (0.1-1.2) X10*3/uL Eos # (Auto) 0.4 (0.0-0.4) X10*3/uL Baso # (Auto) 0.1 (0.0-0.2) X10*3/uL Abs Immat Gran (auto) 0.03 (0.00-0.03) X10*3/uL Absolute Neuts (auto) 4.8 (2.0-8.3) X10*3/uL Absolute Nucleated RBC 0.000 (0.0-0.012) X10*3/uL Nucleated RBC % (auto) 0.0 (0.0-0.2) /100WBC Sodium 140 (135-145) mmol/L Potassium 4.0 (3.3-5.1) mmol/l Chloride 99 (96-108) mmol/L Carbon Dioxide 30 H (22-29) mmol/L Anion Gap 15 (12-20) BUN 9 D (9-16) mg/dL Creatinine 2.27 H (0.5-1.4) mg/dL Estim Creat Clear Calc 18.5 Estimated GFR 21 Random Glucose 99 (60-115) mg/dL Calcium 10.3 H (8.4-10.2) mg/dL Total Bilirubin 0.2 (0.0-1.0) mg/dL Direct Bilirubin 0.2 (0.0-0.5) mg/dL AST 18 (5-31) U/L ALT 18 (0-31) U/L Alkaline Phosphatase 106 (39-117) U/L Total Protein 6.4 L (6.5-8.0) g/dL Albumin 3.5 (3.5-5.0) g/dL Lipase 55 (8-78) U/L COVID-19 (PARTH) Negative (Negative) COVID-19 Clin Com See Note Discharge Plan Discharge Prescriptions: No Action Adult 50 Plus Probiotic 4 billion cell capsule 4,000 mmu cells PO DAILY Qty: 90 RF: 0 hydroxyzine pamoate 50 mg capsule 50 mg PO BEDTIME RF: 0 trimethoprim 100 mg tablet 100 mg PO DAILY 7 Days Qty: 7 RF: 0 prochlorperazine maleate [Compazine] 5 mg tablet 5 mg PO QID PRN (Reason: nausea and vomiting) 3 Days Qty: 12 RF: 0 lamotrigine 150 mg tablet 300 mg PO BEDTIME RF: 0 clozapine 100 mg tablet 150 mg PO BEDTIME RF: 0 clonazepam 1 mg tablet 1.5 mg PO BEDTIME RF: 0 levothyroxine 125 mcg tablet 125 mcg PO QAM RF: 0 Multaq 400 mg tablet 400 mg PO BID RF: 0 Eliquis 2.5 mg tablet 2.5 mg PO BID RF: 0 acetaminophen 325 mg Tablet 650 mg PO BID PRN (Reason: Pain (Scale Score 1-3)) RF: 0 fluticasone propion-salmeterol [Wixela Inhub] 500-50 mcg/dose Blister With Device 1 inh INHALATION BID RF: 0 sevelamer carbonate 800 mg Tablet 800 mg PO TID RF: 0
[2020-07-27] MEDS: ondansetron HCL 4 MG/2 ML VIAL IVPUSH (01:59)
[2020-07-27 02:16] LABS: Basophils Absolute Auto 0.1 X10*3/uL (0.0-0.2); Eosinophils Absolute Auto 0.4 X10*3/uL (0.0-0.4); Hematocrit 35.6 % (37-47); Hemoglobin 11.4 g/dl (12.0-16.0); Imm Gran Abs Auto 0.03 X10*3/uL (0.00-0.03); Imm Gran Pct Auto 0.4 % (0.0-0.4); Lymphocytes Absolute Auto 1.1 X10*3/uL (1.2-4.9); Lymphocytes Percent Auto 15.4 % (20-40); MANUAL DIFF FLAG NO; Mean Corpuscular Volume 93.7 fL (80-98); Mean Platelet Volume 9.1 fL (9.4-12.3); Monocytes Percent Auto 12.9 % (2-11); Neutrophils Absolute Auto 4.8 X10*3/uL (2.0-8.3); Neutrophils Percent Auto 65.3 % (45-73); Platelet Count 250 X10*3/uL (160-400); White Blood Count 7.3 X10*3/uL (4.8-10.8)
[2020-07-27 02:45] LABS: Alanine Aminotransferase 18 U/L (0-31); Albumin Level 3.5 g/dL (3.5-5.0); Alkaline Phosphatase 106 U/L (39-117); Anion Gap 15 (12-20); Aspartate Amino Transferase 18 U/L (5-31); Bilirubin Direct 0.2 mg/dL (0.0-0.5); Bilirubin Total 0.2 mg/dL (0.0-1.0); Blood Urea Nitrogen 9 mg/dL (9-16); Calcium 10.3 mg/dL (8.4-10.2); Carbon Dioxide 30 mmol/L (22-29); Chloride 99 mmol/L (96-108); Creatinine Clr Calc Pharmacy 18.5; Estimated Glomerular Filt Rate 21; Glucose Random 99 mg/dL (60-115); Lipase 55 U/L (8-78); Sodium 140 mmol/L (135-145); Total Protein 6.4 g/dL (6.5-8.0)
[2020-07-27 02:49] LABS: COVID-19 Test Negative (Negative)
--- NOTE | 2020-07-27 02:58 | CT_ITS ---
EXAMINATION: CT ABDOMEN AND PELVIS WITHOUT CONTRAST CLINICAL INFORMATION: Abdominal pain. COMPARISON: 07/11/2020 and priors dating back to 2013 TECHNIQUE: Multidetector volumetric imaging was performed from the superior aspect of the liver through the pubic symphysis. Sagittal and coronal reformatted images were obtained on the technologist's workstation. This CT examination was performed using dose optimization techniques as appropriate, variously including the following: *Automated exposure control *Adjustment of mA and/or kV according to patient size (this includes techniques or standardized protocols for targeted exams where dose is matched to indication/reason for exam; i.e. extremities or head) *Use of iterative reconstruction technique DLP: 482 mGy-cm FINDINGS: LUNG BASES: Stable subsegmental atelectasis and scattered groundglass opacities within the left lower lung. Coronary calcifications. LIVER, GALLBLADDER, AND BILIARY TREE: The liver is normal in size, shape, and attenuation. No focal hepatic lesion or biliary ductal dilatation is present. Cholecystectomy. PANCREAS: Unremarkable. SPLEEN: Unremarkable. ADRENAL GLANDS: Stable 2.3 x 1.8 cm heterogeneous attenuating left adrenal nodule. No significant change since 2012.. Right adrenal gland is normal. KIDNEYS AND URETERS: Innumerable cysts, both simple and hyperdense essentially replace much of the renal parenchyma thinning of the intervening renal parenchyma. There are scattered punctate cortical calcifications, likely a few punctate nonobstructive intrarenal calculi as well. Subcentimeter hyperdense cyst within the lower pole left kidney. BLADDER: Unremarkable. GASTROINTESTINAL TRACT: Right hemicolectomy. Ileocolonic anastomosis within the midabdomen is intact. No intestinal obstruction or inflammation. ABDOMINAL WALL: No significant hernia is appreciated. LYMPH NODES: Normal. VASCULAR: Stable infrarenal abdominal aortic ectasia. PELVIC VISCERA: Uterus and adnexa unremarkable. OSSEOUS STRUCTURES: No acute or suspicious osseous abnormalities. Severe arthrosis contact. Degenerative changes present throughout the spine, worst from L3 to S1 with associated levoconvex lumbar scoliosis. CT/CT abdomen pelvis wo con IMPRESSION: * No acute findings within the abdomen or pelvis to explain the patient's symptomatology. * No evidence of obstruction. Right hemicolectomy with intact enterocolic anastomosis within the midabdomen. * Innumerable bilateral renal cysts and attenuated renal parenchyma. * Long-term stability of a heterogeneous 2.6 cm left adrenal nodule. * Cholecystectomy.
== END 2020-07-27 07:00 | disposition home or self-care (01) ==
PROVIDERS: Emergency Medicine Emergency Medical Services; Emergency Provider Emergency Medicine; PCP Internal Medicine
DX: R11.2 Nausea with vomiting, unspecified (principal); R19.7 Diarrhea, unspecified; R14.0 Abdominal distension (gaseous); Z20.828 Contact with and (suspected) exposure to other viral communicable diseases; J44.9 Chronic obstructive pulmonary disease, unspecified; N18.6 End stage renal disease; Z99.2 Dependence on renal dialysis; Z85.3 Personal history of malignant neoplasm of breast; Z86.711 Personal history of pulmonary embolism; Z79.01 Long term (current) use of anticoagulants
CPT/HCPCS: 36415; 74176; 80048; 80076; 83690; 85025; 87635; 99283; J2405

== ENCOUNTER 2020-08-03 10:16 | Day surgery (SDC) | payer MEDICARE, BC, SELFPAY ==
[2020-07-31 15:43] VITALS: BMI 20.3
--- NOTE | 2020-08-01 13:16 | HO.ANESPROP2 ---
Documented by User: Anni Riggs 08/01/20 13:19 HPI - Anesthesia Eval Consult details Narrative: 74yo F for Upper Endoscopy ESRD with HD MWF s/p permacath insertion x2 03/2020 with MAC, TIVA - no anesthesia related issues s/p bladder mass excision 06/2020 [facility] Past Medical History Medical History Abdominal pain Arrhythmia Arthritis AV fistula Bipolar 1 disorder Bowel obstruction Breast cancer Cancer Chronic nausea COPD (chronic obstructive pulmonary disease) Dialysis patient Diarrhea ESRD (end stage renal disease) History of 2019 novel coronavirus disease (COVID-19) Hx of hypotension Hx of radiation therapy Hypothyroidism Lab test negative for COVID-19 virus Lab test positive for detection of COVID-19 virus MSSA bacteremia Paroxysmal A-fib Poor appetite Positive FIT (fecal immunochemical test) Pulmonary emboli Renal failure SBO (small bowel obstruction) Thyroid disease Vomiting Wears dentures Family History Family History Father Dementia Mother Bipolar 1 disorder Brother Heart attack Surgical History Surgical History History of abdominal surgery History of appendectomy History of back surgery History of cholecystectomy History of hand surgery History of lumpectomy of left breast History of tonsillectomy Hx of foot surgery Social History Social History Alcohol intake: never Smoking Status: Never smoker Years Smoked: 50 Use of substances other than those prescribed or required for medical reasons: No Advance Directives: No Advance Directives Information Provided: No Advance Directives on File: No service: No Current occupational status: disabled Meds Allergies Allergy/AdvReac Type Severity Reaction Status Date / Time adhesive tape Allergy Intermediate Blister Verified 07/10/20 23:10 aspirin Allergy Intermediate RASH Verified 07/10/20 23:10 benztropine Allergy Intermediate RASH Verified 07/10/20 23:10 NSAIDS (Non-Steroidal Allergy Intermediate RASH Verified 07/10/20 23:10 Anti-Inflamma ziprasidone Allergy Unknown UNKNOWN Verified 07/10/20 23:10 Home Medications Medication Instructions Recorded Confirmed Type Eliquis 2.5 mg PO BID 05/21/20 07/31/20 History Multaq 400 mg PO BID 05/21/20 07/31/20 History clonazepam 1.5 mg PO BEDTIME 05/21/20 07/31/20 History clozapine 150 mg PO BEDTIME 05/21/20 07/31/20 History lamotrigine 300 mg PO BEDTIME 05/21/20 07/31/20 History levothyroxine 125 mcg PO QAM 05/21/20 07/31/20 History acetaminophen 650 mg PO BID PRN 05/22/20 06/20/20 History fluticasone propion-salmeterol 1 inh INHALATION BID 05/22/20 07/31/20 History [Wixela Inhub] sevelamer carbonate 800 mg PO TID 05/22/20 07/31/20 History hydroxyzine pamoate 50 mg PO BEDTIME 06/20/20 07/31/20 History Exam Exam Date and Time: August 01, 2020 1316 Height,Weight and Vital Signs: Height 5 ft 3 in Weight 52.163 kg Pertinent Lab Results Pertinent Lab Results: Laboratory Tests 07/27/20 02:09 Sodium 140 Potassium 4.0 Chloride 99 Carbon Dioxide 30 H BUN 9 D Creatinine 2.27 H Narrative Narrative: EKG 06/17/20: SR with PACs, Nonspecific ST abn ECHO 04/2020: Nml LV size and systolic function, EF 65-70%, Limited 2D assessment but no obious concern for vegetation, mild thickening of aortic valve, mild , mild AR Assessment and Plan Assessment Anesthesia Assessment: Chart Reviewed Documented by User: Julia Davis 08/03/20 11:58 [facility] Past Medical History Medical History Abdominal pain Arrhythmia Arthritis AV fistula Bipolar 1 disorder Bowel obstruction Breast cancer Cancer Chronic nausea COPD (chronic obstructive pulmonary disease) Dialysis patient Diarrhea ESRD (end stage renal disease) History of 2019 novel coronavirus disease (COVID-19) Hx of hypotension Hx of radiation therapy Hypothyroidism Lab test negative for COVID-19 virus Lab test positive for detection of COVID-19 virus MSSA bacteremia Paroxysmal A-fib Poor appetite Positive FIT (fecal immunochemical test) Pulmonary emboli Renal failure SBO (small bowel obstruction) Thyroid disease Vomiting Wears dentures Family History Family History Father Dementia Mother Bipolar 1 disorder Brother Heart attack Surgical History Surgical History History of abdominal surgery History of appendectomy History of back surgery History of cholecystectomy History of hand surgery History of lumpectomy of left breast History of tonsillectomy Hx of foot surgery Social History Social History Alcohol intake: never Smoking Status: Never smoker Years Smoked: 50 Use of substances other than those prescribed or required for medical reasons: No Advance Directives: No Advance Directives Information Provided: No Advance Directives on File: No service: No Current occupational status: disabled Meds Allergies Allergy/AdvReac Type Severity Reaction Status Date / Time adhesive tape Allergy Intermediate Blister Verified 07/10/20 23:10 aspirin Allergy Intermediate RASH Verified 07/10/20 23:10 benztropine Allergy Intermediate RASH Verified 07/10/20 23:10 NSAIDS (Non-Steroidal Allergy Intermediate RASH Verified 07/10/20 23:10 Anti-Inflamma ziprasidone Allergy Unknown UNKNOWN Verified 07/10/20 23:10 Home Medications Medication Instructions Recorded Confirmed Type Eliquis 2.5 mg PO BID 05/21/20 07/31/20 History Multaq 400 mg PO BID 05/21/20 07/31/20 History clonazepam 1.5 mg PO BEDTIME 05/21/20 07/31/20 History clozapine 150 mg PO BEDTIME 05/21/20 07/31/20 History lamotrigine 300 mg PO BEDTIME 05/21/20 07/31/20 History levothyroxine 125 mcg PO QAM 05/21/20 07/31/20 History acetaminophen 650 mg PO BID PRN 05/22/20 06/20/20 History fluticasone propion-salmeterol 1 inh INHALATION BID 05/22/20 07/31/20 History [Wixela Inhub] sevelamer carbonate 800 mg PO TID 05/22/20 07/31/20 History hydroxyzine pamoate 50 mg PO BEDTIME 06/20/20 07/31/20 History Exam Airway Mallampati Class: II TM Dist: >3cm Denture: Upper and Lower Assessment and Plan Assessment Anesthesia Assessment: Anesthesia Plan Discussed and Chart Reviewed Final Anesthetic Review NPO: Yes ASA Class: III Final Preanesthetic Review: No Changes in Pt Med Stat, Meds/Allgs Chart Reviewed, Consent Obtained/Reviewed and Anes Risks/Benef Reviewed Patient Risk: Intermediate Procedure Risk: Low Assessment/Block/Sedation in SS: Assess/Block/Sedation-SS Anesthetic Plan Anesthetic Plan: MAC: Disposition: Standard PACU
[2020-08-03] VITALS (11 sets, daily range): BP systolic 76–99; BP diastolic 29–58; PULSE 84–94; RESP 16–18; TEMP 36.2–36.8; O2SAT 96–100
[2020-08-03] MEDS: 0.9 % Sodium Chloride 1,000 ML 50 ML IVCONT (11:36)
--- NOTE | 2020-08-03 11:37 | PC.NURSE ---
Very poor IV access. Several unsuccessful attempts. 2 IV access attempts by Dr John, 2nd attempt right foot successful, 22 g angio, NS IV as ordered.
--- NOTE | 2020-08-03 12:06 | P.CONAN_ITS ---
[facility] Past Medical History Medical History Abdominal pain Arrhythmia Arthritis AV fistula Bipolar 1 disorder Bowel obstruction Breast cancer Cancer Chronic nausea COPD (chronic obstructive pulmonary disease) Dialysis patient Diarrhea ESRD (end stage renal disease) History of 2019 novel coronavirus disease (COVID-19) Hx of hypotension Hx of radiation therapy Hypothyroidism Lab test negative for COVID-19 virus Lab test positive for detection of COVID-19 virus MSSA bacteremia Paroxysmal A-fib Poor appetite Positive FIT (fecal immunochemical test) Pulmonary emboli Renal failure SBO (small bowel obstruction) Thyroid disease Vomiting Wears dentures Family History Family History Father Dementia Mother Bipolar 1 disorder Brother Heart attack Surgical History Surgical History History of abdominal surgery History of appendectomy History of back surgery History of cholecystectomy History of hand surgery History of lumpectomy of left breast History of tonsillectomy Hx of foot surgery Social History Social History Alcohol intake: never Smoking Status: Never smoker Years Smoked: 50 Use of substances other than those prescribed or required for medical reasons: No Advance Directives: No Advance Directives Information Provided: No Advance Directives on File: No service: No Current occupational status: disabled Meds Allergies Allergy/AdvReac Type Severity Reaction Status Date / Time adhesive tape Allergy Intermediate Blister Verified 07/10/20 23:10 aspirin Allergy Intermediate RASH Verified 07/10/20 23:10 benztropine Allergy Intermediate RASH Verified 07/10/20 23:10 NSAIDS (Non-Steroidal Allergy Intermediate RASH Verified 07/10/20 23:10 Anti-Inflamma ziprasidone Allergy Unknown UNKNOWN Verified 07/10/20 23:10 Home Medications Medication Instructions Recorded Confirmed Type Eliquis 2.5 mg PO BID 05/21/20 07/31/20 History Multaq 400 mg PO BID 05/21/20 07/31/20 History clonazepam 1.5 mg PO BEDTIME 05/21/20 07/31/20 History clozapine 150 mg PO BEDTIME 05/21/20 07/31/20 History lamotrigine 300 mg PO BEDTIME 05/21/20 07/31/20 History levothyroxine 125 mcg PO QAM 05/21/20 07/31/20 History acetaminophen 650 mg PO BID PRN 05/22/20 06/20/20 History fluticasone propion-salmeterol 1 inh INHALATION BID 05/22/20 07/31/20 History [Wixela Inhub] sevelamer carbonate 800 mg PO TID 05/22/20 07/31/20 History hydroxyzine pamoate 50 mg PO BEDTIME 06/20/20 07/31/20 History Exam Exam Date and Time: August 03, 2020 1206 Height,Weight and Vital Signs: Height 5 ft 3 in Weight 52.163 kg Last Vital Signs Temp 97.2 F 08/03/20 10:58 Pulse 94 08/03/20 10:58 Resp 18 08/03/20 10:58 BP 99/58 L 08/03/20 10:58 Pulse Ox 96 08/03/20 10:58 Airway Mallampati Class: II TM Dist: >3cm Neck ROM: Limited Heart: RRR Lungs: CTA Assessment and Plan Assessment Anesthesia Assessment: Anesthesia Plan Discussed and Chart Reviewed Final Anesthetic Review NPO: Yes ASA Class: III Final Preanesthetic Review: Meds/Allgs Chart Reviewed, Consent Obtained/Reviewed and Anes Risks/Benef Reviewed Patient Risk: High Anesthetic Plan Anesthetic Plan: MAC: Disposition: Standard PACU
--- NOTE | 2020-08-03 12:13 | PM.OP ---
Brief Operative Note Date of Service: 08/03/20 Pre-op diagnosis: Heme + stools, Anemia, CKD on dialysis,No recent transfusions. Post-op diagnosis: other (Superficial gastritis (no ulcers, no erosions, no GAVE)) Procedure: EGD with bx Implants: none Surgeon: Maria Elena Fontana MD Anesthesia: MAC (MD Hugo) Estimated blood loss (mL): 5 Pathology: other (random gastric) Condition: stable Disposition: PACU
--- NOTE | 2020-08-03 12:13 | MHC.SHP ---
Pre-Procedural Eval Section B Chief Complaint: gerd Details of Present Illness: Patient on Diaysis, persistent heme Positive stool Relevant Family History (Specify if Yes): No Relevant Social History: None Present Medications: see Short Stay Collaborative assessment Medical History: Significant History (On dialysis for endstage kidney disease, chronic anemia --see preop sheet) History of Previous Operations: No relevant previous surgery Allergies: Allergies Allergy/AdvReac Type Severity Reaction Status Date / Time adhesive tape Allergy Intermediate Blister Verified 07/10/20 23:10 aspirin Allergy Intermediate RASH Verified 07/10/20 23:10 benztropine Allergy Intermediate RASH Verified 07/10/20 23:10 NSAIDS (Non-Steroidal Allergy Intermediate RASH Verified 07/10/20 23:10 Anti-Inflamma ziprasidone Allergy Unknown UNKNOWN Verified 07/10/20 23:10 Review of Systems Sugical H&P ROS: Negative: Cardiovascular and Respiratory and Yes, Specify: Constitution (chronically ill appearing), Psychiatric (anxiety/depression) and Gastrointestinal (hx heme +) Exam Surgical H&P Exam: Normal: Heart, Normal: Lungs and Normal: Abdomen and Significant Findings: Extremities (some bruising) Plan Diagnosis/Plan: Unchanged I have reviewed the history and physical and performed a pertinent physical examination on my patient. No changes have occurred unless specified. Yes
--- NOTE | 2020-08-03 12:36 | PM.OP ---
Brief Operative Note Date of Service: 08/03/20 Pre-op diagnosis: Anemia, Heme + stools Post-op diagnosis: other (Mild duodenitis, Superficial gastritis--No GAVE, no ulcers, no erosive esophagitis) Procedure: EGD w/bx Implants: none Surgeon: Maria Elena Fontana MD Anesthesia: MAC (md Hugo) Estimated blood loss (mL): 5 Pathology: other (randome gastric) Condition: stable Disposition: PACU
[2020-08-03] MEDS: Acetaminophen 325 MG TABLET 650 MG PO (15:00)
--- NOTE | 2020-08-03 18:39 | OP_ITS ---
SURGEON: Maria Elena Fontana MD PROCEDURE PERFORMED: EGD with biopsy. ESTIMATED BLOOD LOSS: Less than 5 mL. COMPLICATIONS: No complications. ANESTHESIA: Monitored. ANESTHESIOLOGIST: Dr. Arias ASSISTANTS: No assistant operations manager. SPECIMENS: Specimens removed; random gastric. PREOPERATIVE DIAGNOSES: The patient with multiple medical problems. She is even a COVID survivor. She is on dialysis 3 times weekly. I followed her intermittently for history of heme-positive stool. After some discussion with her , we decided to move forward with upper endoscopic exam. The patient was stable to rule out any significant chronic pathology that we were not aware of. POSTOPERATIVE DIAGNOSES: Superficial gastritis, mild duodenitis. EARLY CHILDHOOD: Dr. Fontana. CONDITION: Postprocedure, stable. FINDINGS: Video endoscope was introduced without difficulty. It was navigated into the posterior pharynx and into the esophagus. Esophageal mucosa was normal. There was no erythema nor erosions. No esophageal varices. Mucosa was intact. GE junction was clear and distinct. There was no obvious hiatal hernia. Scope easily traversed into the fundus and proximal body of the stomach with no obvious lesions. There was mild erythema throughout the body and antrum. There were no changes consistent with erosions, ulcerations, or vascular ectatic lesions. Duodenal bulb and duodenum had patchy areas of loss of villi; however, there was no evidence of any bleeding anywhere in the upper GI tract. Aspirates were slightly bilious. Scope was withdrawn. The patient tolerated the procedure well. PLAN: I have spoken postprocedure to the patient's , described the findings. I did mention that I did do small random gastric biopsies to assess for H pylori or inflammatory changes. I think anything more invasive would probably not be appropriate to pursue at this time. She has not needed a transfusion recently. Plan will be I will follow up with him and his on the phone and a Televisit in a few weeks. If the patient becomes hemodynamically unstable, bleeding scan should be considered and at some point if it looks appropriate, colonoscopy could be entertained GRAFT OR IMPLANTS: No grafts or implants. Maria Elena Fontana MD MEN/MODL / [id number] MTDPhilip
== END 2020-08-03 23:59 | disposition home or self-care (01) ==
PROVIDERS: PCP Internal Medicine; Visit Provider Internal Medicine Gastroenterology
PROC: 0DJ08ZZ Inspection of Upper Intestinal Tract, Via Natural or Artificial Opening Endoscopic (ICD-10-PCS; CPT 43235; principal; 2020-08-03 11:30)
DX: K21.9 Gastro-esophageal reflux disease without esophagitis (principal); R19.5 Other fecal abnormalities; D64.9 Anemia, unspecified; K29.80 Duodenitis without bleeding; K29.60 Other gastritis without bleeding; N18.6 End stage renal disease; Z99.2 Dependence on renal dialysis; Z88.6 Allergy status to analgesic agent; Z88.8 Allergy status to other drugs, medicaments and biological substances
CPT/HCPCS: 43239; 88305; 88342

== ENCOUNTER → 2020-09-06 08:46 | Outpatient (BNVA) | payer MEDICARE, BC, SELFPAY | PROVIDERS: PCP Internal Medicine; Visit Provider Internal Medicine Gastroenterology | DX: N18.6 End stage renal disease (principal); D64.9 Anemia, unspecified; R19.5 Other fecal abnormalities; K59.00 Constipation, unspecified | CPT/HCPCS: Q3014 ==

== ENCOUNTER → 2020-11-30 14:18 | Outpatient (BNVA) | payer MEDICARE, BC, SELFPAY | PROVIDERS: PCP Internal Medicine; Referring Provider Internal Medicine Medical Oncology; Visit Provider Surgery ==

== ENCOUNTER → 2020-12-13 13:08 | Outpatient (BNVA) | payer MEDICARE, BC, SELFPAY | PROVIDERS: PCP Internal Medicine; Visit Provider Urology | DX: C67.9 Malignant neoplasm of bladder, unspecified (principal) | CPT/HCPCS: 52000; 81002; 99212 ==

== ENCOUNTER → 2020-12-28 15:59 | Outpatient (BNVA) | payer MEDICARE, BC, SELFPAY | PROVIDERS: PCP Internal Medicine; Referring Provider Internal Medicine Medical Oncology; Visit Provider Surgery | DX: C50.919 Malignant neoplasm of unspecified site of unspecified female breast (principal) | CPT/HCPCS: 99212 ==

== ENCOUNTER → 2021-01-04 14:25 | Outpatient (BNVA) | payer MEDICARE, BC, SELFPAY | PROVIDERS: PCP Internal Medicine; Referring Provider Internal Medicine; Visit Provider Internal Medicine Cardiovascular Disease | DX: I48.0 Paroxysmal atrial fibrillation (principal); Z79.01 Long term (current) use of anticoagulants | CPT/HCPCS: 93005; 99212 ==

== ENCOUNTER 2021-01-23 07:02 | Day surgery (SDC) | payer MEDICARE, BC, SELFPAY ==
[2021-01-17 14:58] VITALS: BMI 21.6
--- NOTE | 2021-01-19 14:26 | HO.ANESPROP2 ---
Documented by User: Anni Riggs 01/22/21 08:39 HPI - Anesthesia Eval Consult details Narrative: 75yo F for Right breast [place] node biopsy, needle localization, lumpectomy ESRD with HD on MWF (permacath; nonfunctioning AV fistulas bilateral upper extremities) Eliquis for afib PMFSH Active Problems Active Problems: All Active Problems (Updated 01/17/21 @ 15:02 by Lizbeth Urrutia) ESRD (end stage renal disease) (Chronic) Bipolar disorder (Acute) C. difficile diarrhea (Acute) Seizure (Acute) GERD (gastroesophageal reflux disease) (Acute) Sepsis (Acute) Hypotension (Acute) Bladder cancer (Acute) Anemia (Acute) Heme positive stool (Acute) Constipation (Acute) Invasive ductal carcinoma of breast (Acute) Chronic nausea (Acute) Positive FIT (fecal immunochemical test) (Acute) MSSA bacteremia (Acute) Paroxysmal A-fib (Acute) Hypothyroidism (Acute) COPD (chronic obstructive pulmonary disease) (Acute) Past Medical History Medical History Abdominal pain Arrhythmia Arthritis AV fistula Bipolar 1 disorder Bowel obstruction Breast cancer Cancer Chronic nausea COPD (chronic obstructive pulmonary disease) COVID-19 vaccine administered Dialysis patient Diarrhea History of 2019 novel coronavirus disease (COVID-19) Hx of hypotension Hx of radiation therapy Hypothyroidism Invasive ductal carcinoma of breast Lab test negative for COVID-19 virus Lab test positive for detection of COVID-19 virus MSSA bacteremia Paroxysmal A-fib Poor appetite Positive FIT (fecal immunochemical test) Pulmonary emboli Renal failure SBO (small bowel obstruction) Thyroid disease Vomiting Wears dentures Family History Family History Father Dementia Mother Bipolar 1 disorder Brother Heart attack Family history of problems with anesthesia: No Surgical History Surgical History History of abdominal surgery History of appendectomy History of back surgery History of bladder surgery (~06/2020) History of cholecystectomy History of esophagogastroduodenoscopy (EGD) History of hand surgery History of lumpectomy of left breast History of tonsillectomy Hx of colonoscopy Hx of foot surgery History of Problems with Anesthesia: No Social History Social History Are you a primary child care center administrator to a significant other at home: No Do you presently have visiting nurse or other home services: Yes Alcohol intake: never Patient Tobacco Use Status: Former Tobacco user Quit Date: 2015 Tobacco use type: Cigarette Years Smoked: 50 Use of substances other than those prescribed or required for medical reasons: No Have you been hit, kicked, punched, or otherwise hurt by someone within the past year? If so, by whom?: No Are you DNR?: No Advance Directives: Yes (HCP- Neptali Barrett) Advance Directives Information Provided: Yes (verbally-advised to bring copy 01/23/21) Advance Directives on File: No Advance Directives Date on File: 01/23/21 Recently lost weight without trying: No Eating poorly because of decreased appetite: No Nutrition Risks: No Nutritional Risk Patient : No (NO) Poor oral hygiene: No (upper & lower full denture) service: No Current occupational status: disabled Meds Allergies Allergy/AdvReac Type Severity Reaction Status Date / Time adhesive tape Allergy Intermediate Blister Verified 01/23/21 07:36 aspirin Allergy Intermediate RASH Verified 01/23/21 07:36 benztropine Allergy Intermediate RASH Verified 01/23/21 07:36 NSAIDS (Non-Steroidal Allergy Intermediate RASH Verified 01/23/21 07:36 Anti-Inflamma ziprasidone Allergy Unknown UNKNOWN Verified 01/23/21 07:36 Home Medications Medication Instructions Recorded Confirmed Last Taken Type clonazepam 1.5 mg PO BEDTIME 05/21/20 01/17/21 05/20/20 History lamotrigine 300 mg PO BEDTIME 05/21/20 01/17/21 Unknown History acetaminophen 650 mg PO BID PRN 05/22/20 01/17/21 Unknown History fluticasone propion-salmeterol 1 inh INHALATION BID 05/22/20 01/17/21 Unknown History [Wixela Inhub] sevelamer carbonate 800 mg PO TID 05/22/20 01/17/21 Unknown History melatonin 10 mg capsule 20 mg PO BEDTIME PRN cap 09/06/20 01/17/21 Unknown History clozapine 100 mg tablet 150 mg PO BEDTIME 01/04/21 01/17/21 Unknown History Exam Exam Date and Time: January 19, 2021 1426 Height,Weight and Vital Signs: Height 5 ft 3 in Weight 55.338 kg Pertinent Lab Results Pertinent Lab Results: CBC 12/21/20 WBC 3.6 L Hgb 11.1 L Hct 35.8 L Plt 293 Lytes DOS Narrative Narrative: EKG 12/2020 EKG shows normal sinus rhythm at 94 beats per minute with possible left atrial enlargement with QTC interval of 475 milliseconds ECHO 04/2020 Nml LV size and function Limited 2D assess of valves, but no concern for vegetiation Mild thickening of aortic valve Mild Mild AR Assessment and Plan Assessment Anesthesia Assessment: Chart Reviewed Documented by User: Julia Davis 01/23/21 09:50 PMFSH Past Medical History Medical History Abdominal pain Arrhythmia Arthritis AV fistula Bipolar 1 disorder Bowel obstruction Breast cancer Cancer Chronic nausea COPD (chronic obstructive pulmonary disease) COVID-19 vaccine administered Dialysis patient Diarrhea History of 2019 novel coronavirus disease (COVID-19) Hx of hypotension Hx of radiation therapy Hypothyroidism Invasive ductal carcinoma of breast Lab test negative for COVID-19 virus Lab test positive for detection of COVID-19 virus MSSA bacteremia Paroxysmal A-fib Poor appetite Positive FIT (fecal immunochemical test) Pulmonary emboli Renal failure SBO (small bowel obstruction) Thyroid disease Vomiting Wears dentures Family History Family History Father Dementia Mother Bipolar 1 disorder Brother Heart attack Surgical History Surgical History History of abdominal surgery History of appendectomy History of back surgery History of bladder surgery (~06/2020) History of cholecystectomy History of esophagogastroduodenoscopy (EGD) History of hand surgery History of lumpectomy of left breast History of tonsillectomy Hx of colonoscopy Hx of foot surgery Social History Social History Are you a primary child care center administrator to a significant other at home: No Do you presently have visiting nurse or other home services: Yes Alcohol intake: never Patient Tobacco Use Status: Former Tobacco user Quit Date: 2015 Tobacco use type: Cigarette Years Smoked: 50 Use of substances other than those prescribed or required for medical reasons: No Have you been hit, kicked, punched, or otherwise hurt by someone within the past year? If so, by whom?: No Are you DNR?: No Advance Directives: Yes (HCP- Neptali Barrett) Advance Directives Information Provided: Yes (verbally-advised to bring copy 01/23/21) Advance Directives on File: No Advance Directives Date on File: 01/23/21 Recently lost weight without trying: No Eating poorly because of decreased appetite: No Nutrition Risks: No Nutritional Risk Patient : No (NO) Poor oral hygiene: No (upper & lower full denture) service: No Current occupational status: disabled Meds Allergies Allergy/AdvReac Type Severity Reaction Status Date / Time adhesive tape Allergy Intermediate Blister Verified 01/23/21 07:36 aspirin Allergy Intermediate RASH Verified 01/23/21 07:36 benztropine Allergy Intermediate RASH Verified 01/23/21 07:36 NSAIDS (Non-Steroidal Allergy Intermediate RASH Verified 01/23/21 07:36 Anti-Inflamma ziprasidone Allergy Unknown UNKNOWN Verified 01/23/21 07:36 Home Medications Medication Instructions Recorded Confirmed Last Taken Type clonazepam 1.5 mg PO BEDTIME 05/21/20 01/17/21 05/20/20 History lamotrigine 300 mg PO BEDTIME 05/21/20 01/17/21 Unknown History acetaminophen 650 mg PO BID PRN 05/22/20 01/17/21 Unknown History fluticasone propion-salmeterol 1 inh INHALATION BID 05/22/20 01/17/21 Unknown History [Wixela Inhub] sevelamer carbonate 800 mg PO TID 05/22/20 01/17/21 Unknown History melatonin 10 mg capsule 20 mg PO BEDTIME PRN cap 09/06/20 01/17/21 Unknown History clozapine 100 mg tablet 150 mg PO BEDTIME 01/04/21 01/17/21 Unknown History Exam Airway Mallampati Class: II TM Dist: >3cm Neck ROM: Full Assessment and Plan Assessment Anesthesia Assessment: Anesthesia Plan Discussed and Chart Reviewed Final Anesthetic Review NPO: Yes ASA Class: III Final Preanesthetic Review: No Changes in Pt Med Stat, Meds/Allgs Chart Reviewed, Consent Obtained/Reviewed and Anes Risks/Benef Reviewed Patient Risk: Intermediate Procedure Risk: Low Assessment/Block/Sedation in SS: Assess/Block/Sedation-SS Anesthetic Plan Anesthetic Plan: GA Disposition: Standard PACU
[2021-01-23] VITALS (12 sets, daily range): BP systolic 107–133; BP diastolic 43–75; PULSE 86–88; RESP 16–20; TEMP 36.6–36.8; O2SAT 94–96
--- NOTE | ~2021-01-23 | MM_ITS ---
EXAMINATION: MM MAMMOGRAM GUIDED NEEDLE LOCALIZATION BREAST, RIGHT MM NEEDLE LOCALIZATION SPECIMEN FROM THE RIGHT BREAST CLINICAL INFORMATION: Invasive ductal cancer right breast on outside biopsy 11/06/2020 ([facility]). COMPARISON: Outside breast imaging from [facility]: Postbiopsy right mammography 11/06/2020, mammography 02/08/2019. TECHNIQUE NEEDLE LOC: Case reviewed and discussed with Dr. Thomas on 01/04/2021. The outside reports note ultrasound guided biopsy right breast with placement of wing clip. The location is described as 4:00 position 2 cm from nipple, but on the post biopsy mammography the wing clip is at the 7:00 position 12-13 cm from nipple. There is also compressing seen over this site. There is an old ribbon shaped biopsy clip marker anterior right breast which was present on the prior outside mammography from 2019. Proper informed consent is obtained from the patient after discussion of the procedure, potential risks and complications, and alternatives including declining the procedure today. Patient was given an opportunity for questions. The patient appeared to understand. The patient consented to the procedure and signed the consent form. GUIDANCE: Digital mammography. APPROACH: Lateral Medial with rolling breast for optimized access. TARGET: Wing shaped biopsy clip marker and fibroglandular density. ANESTHESIA: lidocaine 1%: 8 mL. LOCALIZATION MARKER: [place] MammaL[employer]. 10 cm length. The skin is prepped and local anesthesia administered. The needle is positioned and position assessed with mammography. The wire is hooked into position. Beacon needle protector placed. The patient tolerated the procedure well and had no immediate complication. Following the procedure, 4% lidocaine ointment was administered to the right areola and covered with Tegaderm in anticipation of nuclear lymphoscintigraphy injection for sentinel lymph node mapping. Post procedure findings discussed with Dr. Thomas prior to OR appointment. TECHNIQUE SPECIMEN RADIOGRAPH: Imaging of the excised specimen is performed using digital mammography in 1 view. FINDINGS SPECIMEN RADIOGRAPH: The specimen shows the distal needle and distal hookwire are delivered intact. The biopsy clip marker is identified in the specimen adjacent to the localization needle along with punctate calcifications in this area as well as scattered elsewhere in the specimen. Results were called to Dr. Mahendra Thomas in the operating room at the time of imaging. MM/MM needle loc RT IMPRESSION: 1. Status post right breast needle localization with wire hooked into position. 2. Post operative specimen radiograph obtained.
--- NOTE | ~2021-01-23 | NM_ITS ---
EXAMINATION: NM LYMPH SCINTIGRAPHY CLINICAL INFORMATION: Right breast invasive ductal carcinoma. COMPARISON: None TECHNIQUE: Following explaining right breast sentinel lymphoscintigraphy procedure, benefits and risks written consent was obtained by Dr. Sutton. The area around the right breast areola was cleaned in usual sterile fashion with alcohol swabs. 0.5 uCi of 99m Tilmanocept divided in 4 equal doses was injected in the 4 quadrants around the areola and imaging obtained 30 minutes later. FINDINGS: There is normal activity seen in the 4 quadrants around the right breast areola. There are 2 faintly visualized sentinel nodes in the anterior axilla. No additional lymph node activity seen. NM/NM sentinel node w imaging IMPRESSION: Small lymph nodes visualized in right anterior axilla on right breast lymphoscintigraphy.
[2021-01-23 08:02] LABS: Anion Gap 18 (12-20); Carbon Dioxide 25 mmol/L (22-29); Chloride 102 mmol/L (96-108); Sodium 140 mmol/L (135-145)
[2021-01-23] MEDS: 0.9 % Sodium Chloride 1,000 ML 50 ML IVCONT (08:12)
[2021-01-23] MEDS: fentaNYL citrate/PF 100 MCG/2 ML VIAL 50 MCG IVPUSH ×3 (13:35→14:32)
--- NOTE | 2021-01-23 13:39 | PM.OP ---
Brief Operative Note Date of Service: 01/23/21 Pre-op diagnosis: right breast invasive ductal ca Post-op diagnosis: same Procedure: right breast lumpectomy with needle loc, sentinel node biopsy Surgeon: Mahendar Thomas MD Anesthesia: GLMA Was an Civil Draftsman used for this Procedure?: No Estimated blood loss (mL): 40 Pathology: other (lumpectomy, sentinel nodes) Condition: stable Disposition: PACU
--- NOTE | 2021-01-23 13:41 | W.PM.OPN ---
Operative Note Operative Note Date of Service: 01/23/21 Narrative: Preop diagnosis: Invasive ductal carcinoma, right breast Postop diagnose: Invasive ductal carcinoma, right breast Procedure: Right breast lumpectomy, with needle localization, with sentinel node biopsy Surgeon: Mahendra Thomas MD No patient care nursing assistant The patient is a 75 year female who had undergone biopsy of right breast calcifications in [facility] in was found to have invasive ductal carcinoma the right breast. She wanted to have her surgery done here in [place] so she came to me in the office with her . I was able to achieve her films from [facility] any I had reviewed this with the radiologist. She was then scheduled for lumpectomy with needle localization. I had extensive discussions with the patient and her about the option of breast conservation treatment versus mastectomy and she had wanted to proceed with lumpectomy. She says she had definitely wanted to save her breast. She understood that she would require radiation postop She was brought to the operating room placed supine on table under general anesthesia via laryngeal mask airway. She had undergone needle localization earlier with the radiologist and had reviewed the films with him. She also had undergone radionuclide mapping of the sentinel nodes and had reviewed this images as well. There appeared to be about 2 lymph nodes were lighting up in the axilla. I had tape the rest medially to expose the needle optimally. The localizing needle was entering from lateral inferior towards medially. This right breast as well as the axilla was prepped and draped into a sterile fashion. A surgical time-out was done. The patient received cefazolin 2 g IV preoperatively I infiltrated the planned line of incision at the entry point of the localizing needle with lidocaine 1%. I made the incision using a blade 15. This was carried down through the full-thickness of the skin and subcutaneous layer using electrocautery. I then proceeded to gently developed flaps just adjacent to the skin incision. I then set up the flaps and used the curved Bermudez scissors to fully divide the breast tissue surrounding this localizing needle. We proceeded to deepen this incision care circumference she, with care being taken so as to ensure that we were including generous margins of breast tissue with the dissection. I used the Allis clamp to carefully retract the lumpectomy specimen into the field to allow good visualization posteriorly. We continued to dissect posteriorly while palpating for the tip of the needle to make sure that we were way past this localized needle. The continued dissection posteriorly until were able to deliver the specimen and this was sent for immediate re-ray as well as immediate gross exam. Prior to completely removing the lump, I applied a short stitch superiorly and a long stitch laterally for good orientation of the specimen. I then proceeded to palpate for the surrounding breast tissue and I did not feel any significant induration. I cauterized oozing areas. I made sure that we had good hemostasis. I then irrigated. I reapposed the deeper tissue with multiple interrupted Dexon 3-0 sutures. I covered the incision with Tegaderm and proceeded to do the sentinel node biopsy I changed gloves and used a fresh set of instruments. I used the gamma probe to localize for the maximal radiation counts in the axilla. This area was marked and I proceeded to infiltrate this with lidocaine 1%. I made an incision using a blade 15. And this was carried down through the full-thickness of the skin and subcutaneous fat with electrocautery. We deepened the incision and carefully followed the direction of the optimal radiation counts by carefully checking with the gamma probe. I opened up the fascia of the axilla gently with Metzenbaum scissors. I proceeded to then carefully identify the sentinel node. With the use of the gamma probe I was able to eventually see maximal counts in the axilla. A lymph node with a count of 273 was identified. This was sharply dissected using Metzenbaum scissors and was sent as our sentinel node 1. Another lymph node just adjacent to this was also identified with the radiation count 133 and this was gently dissected Metzenbaum scissors and sent as specimen. I was able to palpate for another lymph node with no significant elevated counts but since it was easily visible I dissected this gently and was sent as lymph node 3. I observed for any the background radiation counts. I examined the entire axilla carefully with palpation as well as with the gamma probe and there were no other elevated counts that could be detected. The axillary a was irrigated. I observed for good hemostasis. Once hemostasis was ensured I proceeded to reappose the deep tissue with Dexon 3-0 interrupted sutures. Skin closure was achieved with Dexon 4-0 subcuticular sutures. I was then called by the radiologist and we had discussed the re-rayay. It appeared that we had good margins surrounding the needle and the tip. The biopsy clip was also noted. I also received a phone call from the pathologist and I was told that the margins on the superior and superolateral aspect appeared to be close so I released the initial Dexon 3-0 sutures. I proceeded to gently dissect more of the superior and lateral margins taking more tissue and this was sent as additional margins. I observed for hemostasis again. I copiously irrigated. Once hemostasis was ensured I proceeded to then reappose the deep layer with Dexon 3-0 interrupted sutures. Skin closure was achieved with Dexon 4-0 subcuticular sutures. I infiltrated all incisions with Marcaine 0.5% for postop analgesia. Steri-Strips and dressings were applied. The procedure was then completed. The patient tolerated the procedure well. There were no complications noted. Initial and final counts of sponges and instruments were correct. Estimated blood loss about 40 cc. The patient was extubated without difficulty and transferred to the recovery room with stable vital signs.
== END 2021-01-23 15:37 | disposition home or self-care (01) ==
PROVIDERS: Nurse Practitioner; PCP Internal Medicine; Visit Provider Surgery
PROC: (CPT 19301; principal; 2021-01-23 11:00)
PROC: (CPT 19301; 2021-01-23 11:00)
PROC: (CPT 19301; 2021-01-23 11:00)
DX: C50.911 Malignant neoplasm of unspecified site of right female breast (principal); Z17.0 Estrogen receptor positive status [ER+]; C77.3 Secondary and unspecified malignant neoplasm of axilla and upper limb lymph nodes; I48.0 Paroxysmal atrial fibrillation; Z79.01 Long term (current) use of anticoagulants; Z88.6 Allergy status to analgesic agent; Z88.8 Allergy status to other drugs, medicaments and biological substances
CPT/HCPCS: 19301; 38525; 19281; 36415; 78195; 80051; 88305; 88307; 88329; 88342; A4648; A9520; J0690; J1100; J2405; J3010

== ENCOUNTER 2021-01-27 22:04 | Emergency (ER) | payer MEDICARE, BC, SELFPAY ==
[2021-01-27 22:22] VITALS: BP 83/49; PULSE 100; RESP 16; TEMP 36.8; O2SAT 92; BMI 21.6
--- NOTE | 2021-01-27 22:43 | ED.GENADULT ---
HPI - General Adult General Chief complaint: Recheck/Abnormal Lab/Rx Stated complaint: Post-Surgery pain Time Seen by Provider: 01/27/21 22:41 Source: patient Mode of arrival: ambulatory Limitations: no limitations History of Present Illness HPI narrative: Patient invasive right breast ductal carcinoma status post lumpectomy on 01/23 comes here for increased swelling and pain at the site of the biopsy no fever no chills no skin discoloration patient is on Dilaudid and Eliquis Related Data Home Medications Medication Instructions Recorded Confirmed clonazepam 1.5 mg PO BEDTIME 05/21/20 01/17/21 lamotrigine 300 mg PO BEDTIME 05/21/20 01/17/21 acetaminophen 650 mg PO BID PRN 05/22/20 01/17/21 fluticasone propion-salmeterol 1 inh INHALATION BID 05/22/20 01/17/21 [Wixela Inhub] sevelamer carbonate 800 mg PO TID 05/22/20 01/17/21 melatonin 10 mg capsule 20 mg PO BEDTIME PRN cap 09/06/20 01/17/21 clozapine 100 mg tablet 150 mg PO BEDTIME 01/04/21 01/17/21 Previous Rx's Medication Instructions Recorded miscellaneous medical supply #1 ea 08/07/20 miscellaneous medical supply #1 ea 08/16/20 Air Mattress #1 ea 08/23/20 levothyroxine 125 mcg tablet 125 mcg PO QAM #90 tab 10/21/20 hydroxyzine pamoate 50 mg capsule 50 mg PO BEDTIME PRN #90 cap 11/15/20 prochlorperazine maleate 5 mg 5 mg PO TID PRN #30 tab 11/25/20 tablet apixaban 2.5 mg tablet 2.5 mg PO BID 90 Days #180 tab 01/16/21 hydromorphone [Dilaudid] 2 mg PO Q4H PRN #20 tab 01/23/21 hydromorphone [Dilaudid] See Rx Instructions .ROUTE 01/23/21 .COMPLEX PRN #20 tab dronedarone 400 mg tablet 400 mg PO BID 90 Days #180 tab 01/26/21 Allergies Allergy/AdvReac Type Severity Reaction Status Date / Time adhesive tape Allergy Intermediate Blister Verified 01/23/21 07:36 aspirin Allergy Intermediate RASH Verified 01/23/21 07:36 benztropine Allergy Intermediate RASH Verified 01/23/21 07:36 NSAIDS (Non-Steroidal Allergy Intermediate RASH Verified 01/23/21 07:36 Anti-Inflamma ziprasidone Allergy Unknown UNKNOWN Verified 01/23/21 07:36 Review of Systems Review of Systems: Yes all other systems are reviewed and are negative [facility] Past Medical History Medical History Abdominal pain Arrhythmia Arthritis AV fistula Bipolar 1 disorder Bowel obstruction Breast cancer Cancer Chronic nausea COPD (chronic obstructive pulmonary disease) COVID-19 vaccine administered Dialysis patient Diarrhea History of 2019 novel coronavirus disease (COVID-19) Hx of hypotension Hx of radiation therapy Hypothyroidism Invasive ductal carcinoma of breast Lab test negative for COVID-19 virus Lab test positive for detection of COVID-19 virus MSSA bacteremia Paroxysmal A-fib Poor appetite Positive FIT (fecal immunochemical test) Pulmonary emboli Renal failure SBO (small bowel obstruction) Thyroid disease Vomiting Wears dentures Surgical History History of abdominal surgery History of appendectomy History of back surgery History of bladder surgery (~06/2020) History of cholecystectomy History of esophagogastroduodenoscopy (EGD) History of hand surgery History of lumpectomy of left breast History of tonsillectomy Hx of colonoscopy Hx of foot surgery Family History Family History Father Dementia Mother Bipolar 1 disorder Brother Heart attack Social History Social History Are you a primary ambulatory care to a significant other at home: No Do you presently have visiting nurse or other home services: Yes Alcohol intake: never Patient Tobacco Use Status: Former Tobacco user Quit Date: 2015 Tobacco use type: Cigarette Years Smoked: 50 Advance Directives: No Advance Directives Information Provided: No Advance Directives Date on File: 01/23/21 service: No Current occupational status: disabled Physical Exam Vital Signs: Vital Signs: Last Vital Signs Temp 98.3 F 01/27/21 22:22 Pulse 100 01/27/21 22:22 Resp 16 01/27/21 22:22 BP 83/49 L 01/27/21 22:22 Pulse Ox 92 06/12/21 22:22 Body Mass Index 21.6 Const: General: comfortable and no acute distress Orientation/consciousness: patient oriented x3 HENMT: Head: Yes normocephalic Eyes: General: appearance normal, both eyes and all related structures Neck: Neck: Yes normal visual inspection Chest: Chest/axillae images: 1. Soft tissue tenderness with lump no skin discoloration no pus discharge no surrounding erythema Resp: Effort & Inspection: normal respiratory effort Auscultation: clear to auscultation bilaterally Cardio: Palpation: normal PMI Rate: regular rate Rhythm: regular rhythm Heart sounds: S1 normal heart sound present and S2 normal heart sound present GI: Inspection: Yes normal to inspection Palpation (GI): Soft to palpation Neuro: General: patient oriented x3 Discharge Plan Discharge Prescriptions: No Action (DME) miscellaneous medical supply Misc See Rx Instructions .ROUTE .MEDSUPPLY Qty: 1 RF: 0 (DME) miscellaneous medical supply Misc See Rx Instructions .ROUTE .MEDSUPPLY Qty: 1 RF: 0 (DME) Air Mattress Wright See Rx Instructions .Route .MEDSUPPLY Qty: 1 RF: 0 levothyroxine 125 mcg tablet 125 mcg PO QAM Qty: 90 RF: 1 hydroxyzine pamoate 50 mg capsule 50 mg PO BEDTIME PRN (Reason: for insomnia) Qty: 90 RF: 1 prochlorperazine maleate 5 mg tablet 5 mg PO TID PRN (Reason: for nausea/vomiting) Qty: 30 RF: 0 Eliquis 2.5 mg tablet 2.5 mg PO BID 90 Days Qty: 180 RF: 1 Hold Instructions: Resume on 01/24/21. Multaq 400 mg tablet 400 mg PO BID 90 Days Qty: 180 RF: 1 hydromorphone [Dilaudid] 2 mg tablet See Rx Instructions .ROUTE .COMPLEX PRN (Reason: pain) Qty: 20 RF: 0 hydromorphone [Dilaudid] 2 mg tablet 2 mg PO Q4H PRN (Reason: pain) Qty: 20 RF: 0 lamotrigine 150 mg tablet 300 mg PO BEDTIME RF: 0 clonazepam 1 mg tablet 1.5 mg PO BEDTIME RF: 0 acetaminophen 325 mg Tablet 650 mg PO BID PRN (Reason: Pain (Scale Score 1-3)) RF: 0 fluticasone propion-salmeterol [Wixela Inhub] 500-50 mcg/dose Blister With Device 1 inh INHALATION BID RF: 0 sevelamer carbonate 800 mg Tablet 800 mg PO TID RF: 0 clozapine 100 mg tablet 150 mg PO BEDTIME RF: 0 melatonin 10 mg capsule 20 mg PO BEDTIME PRN (Reason: Insomnia) RF: 0
[2021-01-27 23:55] VITALS: BP 101/60; PULSE 100; RESP 17; TEMP 36.8; O2SAT 92
== END 2021-01-27 23:58 | disposition home or self-care (01) ==
PROVIDERS: Emergency Provider Internal Medicine
DX: G89.18 Other acute postprocedural pain (principal); C50.911 Malignant neoplasm of unspecified site of right female breast; I48.0 Paroxysmal atrial fibrillation; Z79.01 Long term (current) use of anticoagulants; Z79.891 Long term (current) use of opiate analgesic
CPT/HCPCS: 99283; 99284

== ENCOUNTER → 2021-02-05 11:17 | Outpatient (BNVA) | payer MEDICARE, BC, SELFPAY | PROVIDERS: PCP Internal Medicine; Visit Provider Hospitalist | DX: J41.8 Mixed simple and mucopurulent chronic bronchitis (principal); J18.0 Bronchopneumonia, unspecified organism; R13.10 Dysphagia, unspecified | CPT/HCPCS: 99212 ==

== ENCOUNTER → 2021-02-15 15:40 | Outpatient (BNVA) | payer MEDICARE, BC, SELFPAY | PROVIDERS: PCP Internal Medicine; Referring Provider Internal Medicine; Visit Provider Surgery | DX: C50.919 Malignant neoplasm of unspecified site of unspecified female breast (principal) | CPT/HCPCS: 99212 ==

== ENCOUNTER 2021-03-09 11:01 | Outpatient (REF) | payer MEDICARE, BC, SELFPAY ==
--- NOTE | ~2021-03-09 | MM_ITS ---
EXAMINATION: BONE DENSITOMETRY CLINICAL INDICATION: History of osteopenia. Other specified disorders of bone density and structure. Postmenopausal. COMPARISON: Baseline BD dated 11/12/2007. TECHNIQUE: Using a [employer] DXA System (software version: 13.1) manufactured by [employer], dual-energy x-ray absorptiometry was performed of the lumbar spine and left hip. The images are of good technical quality. Summary results are attached. FINDINGS: AP SPINE L1-L2 (excluding L3 and L4): The data of L1-L4 has been changed to exclude the L3 and L4 vertebral bodies, because degenerative changes at these levels may cause overestimation of lumbar spine density. Current: BMD 0.882 g/cm2, Z-score -0.3, T-score -2.4, osteopenia, 6.7% decrease from baseline (<5% change is not significant). Baseline: BMD 0.945 g/cm2. LEFT FEMUR, NECK: Current: BMD 0.588 g/cm2, Z-score -1.2, T-score -3.2, osteoporosis. Baseline: BMD 0.773 g/cm2. LEFT FEMUR, TOTAL: Current: BMD 0.601 g/cm2, Z-score -1.4, T-score -3.2, osteoporosis, 31.9% decrease from baseline (<5% change is not significant). Baseline: BMD 0.883 g/cm2. IDENTIFIED RISK FACTORS: Menopause. Renal disease. HISTORY OF FRACTURE: Foot. MEDICATIONS: Vitamin D. MM/XR DEXA axial skeleton IMPRESSION: 1. DIAGNOSIS: Osteoporosis based on the lowest T-score value of -3.2 in the femoral neck and total femur applying World Health Organization criteria. 2. 10-YEAR FRACTURE RISK PREDICTION, FRAX: Major osteoporotic fracture (clinical spine, forearm, hip or shoulder) 21.5%. Hip fracture 9.0%. 3. Treatment Recommendations: NOF guidelines recommend consideration for treatment in postmenopausal women and men age 50 and older presenting with the following: -A hip or vertebral (clinical or morphometric) fracture. -T-score less than or equal to -2.5 at the femoral neck or spine after appropriate evaluation to exclude secondary causes. -Low bone mass at the hip or spine and a 10-year fracture probability by FRAX of greater than or equal to 3% for hip fracture or greater than or equal to 20% for major osteoporotic fracture based on the [place] adapted WHO algorithm. 4. Other Recommendations: All treatment decisions require clinical judgment and consideration of individual patient factors, including patient preferences, comorbidities, previous drug use, risk factors not captured in the FRAX model (e.g. frailty, falls, vitamin D deficiency, increased bone turnover, interval significant decline in bone density) and possible under or overestimation of fracture risk by FRAX. Additional medical evaluation for secondary cause of low bone mineral density may be appropriate. FUTURE SCAN RECOMMENDATION: People with diagnosed cases of osteoporosis or at high risk for fracture should have regular bone mineral density tests. For patients eligible for Medicare, routine testing is allowed once every 2 years. The testing frequency can be increased to one year for patients who have rapidly progressing disease, those who are receiving or discontinuing medical therapy to restore bone mass, or have additional risk factors.
== END 2021-03-09 11:02 | disposition home or self-care (01) ==
LOC: HO.MAMMO 11:01
PROVIDERS: Visit Provider Internal Medicine Medical Oncology
DX: Z13.820 Encounter for screening for osteoporosis (principal); M85.80 Other specified disorders of bone density and structure, unspecified site; M81.0 Age-related osteoporosis without current pathological fracture; N28.9 Disorder of kidney and ureter, unspecified; Z78.0 Asymptomatic menopausal state; Z79.899 Other long term (current) drug therapy
CPT/HCPCS: 77080

== ENCOUNTER 2021-03-13 12:30 | Outpatient (REF) | payer MEDICARE, BC, SELFPAY ==
--- NOTE | ~2021-03-13 | PE_ITS ---
EXAMINATION: PET/CT FUSION SKULL TO THIGH CLINICAL INFORMATION: Right breast cancer for staging. COMPARISON: CT abdomen and pelvis 07/27/2020. TECHNIQUE: Following IV administration of 13.6 mCi of FDG in left forearm, whole body admission scan was obtained approximately 60 minutes later. 3.[address] transmission scan was obtained for correlative imaging without oral or IV contrast. 3-D and color processing was performed on a separate workstation. DLP 547 mGy-cm FINDINGS: PET IMAGING: Skull base and Neck: There is no abnormal metabolic activity seen in the skull base or the neck region. There is normal activity seen in the parotid and submandibular glands and base of the tongue likely related to salivary glands or secretions. No abnormal metabolic activity seen to suspect a new lymphadenopathy. CHEST: There is focal abnormal metabolic activity seen in a left para-aortic lymph node with an SUV measurement of 4.65. On CT the lymph node measures approximately 1 cm on axial image 196/2. There is hypermetabolic activity seen in the solitary left upper lobe nodule in the anterior segment with an SUV of 5.48. On CT the nodule roughly measures 1.2 x 0.8 cm on axial image 195/2. No additional abnormal metabolic activity seen in the lung parenchyma or the mediastinum. The axilla appears unremarkable. On CT there are diffuse emphysematous changes, especially both upper lobes, with scattered chronic parenchymal densities in lingula and anterior segment of left upper lobe and right upper lobe. No abnormal metabolic activity seen. There is a soft tissue density right breast measuring 6 5.9 x 3.5 cm on axial image 156/2 and 27 Hounsfield units likely hematoma. Mild metabolic activity seen in a circumferential pattern surrounding this lesion. ABDOMEN/PELVIS: There is mild metabolic activity seen in the entire colon related to the bacterial rolanda. No focal abnormal metabolic activity seen in the liver, spleen, pancreas and adrenal glands. Normal metabolic activity seen in the kidneys and the right ureter. On CT visualized liver, spleen, pancreas, gallbladder and adrenal glands are unremarkable. Both kidneys are lobulated with scattered punctate cortical calcifications but no hydronephrosis. There is nonobstructive 4 mm radiopaque calculi upper pole right kidney and probable 2 mm radiopaque calculi lower pole left kidney. There is a complex hyperdense partially exophytic 1.4 cm lesion lower pole left kidney. There are postsurgical anastomotic sutures in the right lower pelvis. There is mild scattered stool throughout the colon with constipation. No abnormality seen in the pelvis. MSK: Mild increased activity in the right glenohumeral shoulder joint likely inflammatory arthritis. On CT there is mild degenerative spurring. Correlate with clinical exam. Otherwise no abnormal metabolic activity seen in the entire spine, pelvic or bony thorax. PET/PET CT fusion skull to thigh IMPRESSION: There are 2 areas of abnormal activity in the left para-aortic lymph node and left upper lobe nodule. No additional areas of abnormal metabolic activity seen in the chest, abdomen, pelvis or the neck to suspect any distant metastatic disease.
== END 2021-03-13 12:31 | disposition home or self-care (01) ==
LOC: HO.PET 12:30
PROVIDERS: PCP Internal Medicine; Visit Provider Internal Medicine Medical Oncology
DX: Z13.89 Encounter for screening for other disorder (principal)

== ENCOUNTER → 2021-03-15 15:52 | Outpatient (BNVA) | payer MEDICARE, BC, SELFPAY | PROVIDERS: PCP Internal Medicine; Referring Provider Internal Medicine; Visit Provider Surgery | DX: C50.919 Malignant neoplasm of unspecified site of unspecified female breast (principal); Z17.0 Estrogen receptor positive status [ER+]; Z87.891 Personal history of nicotine dependence; Z88.6 Allergy status to analgesic agent; Z88.8 Allergy status to other drugs, medicaments and biological substances; Z79.899 Other long term (current) drug therapy | CPT/HCPCS: 99212 ==

== ENCOUNTER 2021-03-20 23:32 | Inpatient (IN) | payer MEDICARE, BC, SELFPAY ==
--- NOTE | ~2021-03-20 | FL_ITS ---
EXAMINATION: Intraoperative fluoroscopy CLINICAL INFORMATION: Bilateral stent placement COMPARISON: CT abdomen pelvis March 21, 2021 TECHNIQUE: Intraoperative fluoroscopy was provided for use by Dr. Gould. A total of 1 image was saved to PACS. A radiologist was not present during imaging. Today's dictation is only for administrative purposes to document intraoperative fluoroscopic usage. TOTAL FLUOROSCOPIC TIME: 1.3 minutes FL/FL guidance in OR FINDINGS~\^^ Intraoperative fluoroscopy provided for use by Dr. Gould. Please see operative note for detailed findings.
--- NOTE | ~2021-03-20 | CT_ITS ---
EXAMINATION: CT ABDOMEN AND PELVIS WITHOUT CONTRAST CLINICAL INFORMATION: Bloody urine. History of bladder cancer, status post TURBT in June 2020 COMPARISON: 07/27/2020 and priors dating back to 2012 TECHNIQUE: Multidetector volumetric imaging was performed from the superior aspect of the liver through the pubic symphysis. Sagittal and coronal reformatted images were obtained on the technologist's workstation. This CT examination was performed using dose optimization techniques as appropriate, variously including the following: *Automated exposure control *Adjustment of mA and/or kV according to patient size (this includes techniques or standardized protocols for targeted exams where dose is matched to indication/reason for exam; i.e. extremities or head) *Use of iterative reconstruction technique DLP: 459 mGy-cm FINDINGS: LUNG BASES: There are patchy opacities within the lingula and anterior segment of the left lower lobe, which are stable from the prior PET/CT from January 2021, previously shown to be FDG avid. Additional groundglass opacities are unchanged. Severe emphysema. Coronary calcifications. LIVER, GALLBLADDER, AND BILIARY TREE: The liver is normal in size, shape, and attenuation. No focal hepatic lesion or biliary ductal dilatation is present. Cholecystectomy. PANCREAS: Unremarkable. SPLEEN: Unremarkable. ADRENAL GLANDS: Stable 2.3 x 1.8 cm heterogeneous attenuating left adrenal nodule. No significant change since 2012.. Right adrenal gland is normal. KIDNEYS AND URETERS: Innumerable cysts, both simple and hyperdense essentially replace much of the renal parenchyma thinning of the intervening renal parenchyma. There are scattered punctate cortical calcifications, likely a few punctate nonobstructive intrarenal calculi as well. Subcentimeter hyperdense cyst within the lower pole left kidney. There is hyperdensity, with accompanying dilatation of the right ureter measuring 1.3 cm in diameter extending over length of at least 4 cm. Distally, the right ureter contains hyperdensity BLADDER: Unremarkable. GASTROINTESTINAL TRACT: Right hemicolectomy. Ileocolonic anastomosis within the midabdomen is intact. No intestinal obstruction or inflammation. ABDOMINAL WALL: No significant hernia is appreciated. LYMPH NODES: Normal. VASCULAR: Stable infrarenal abdominal aortic ectasia. PELVIC VISCERA: Uterus and adnexa unremarkable. OSSEOUS STRUCTURES: No acute or suspicious osseous abnormalities. Severe arthrosis contact. Degenerative changes present throughout the spine, worst from L3 to S1 with associated levoconvex lumbar scoliosis. CT/CT abdomen pelvis wo con IMPRESSION: * New moderate right hydronephrosis. There is dilatation of the distal right ureter accompanied by hyperdensity. The abnormally dilated portion measures up to 1.3 cm in diameter extending over length of approximately 4 cm. Distal to this, hypodensities present within the right ureter. Appearance is concerning for urothelial neoplasm within the distal RIGHT ureter. * Right hemicolectomy with intact enterocolic anastomosis within the midabdomen. * Innumerable bilateral renal cysts and attenuated renal parenchyma. * Long-term stability of a heterogeneous 2.6 cm left adrenal nodule. * Bilateral pulmonary parenchymal airspace opacities, with opacities in the left lower lobe and lingula similar to the prior CT, having previously shown FDG avidity, nonspecific. * Cholecystectomy.
[2021-03-21] VITALS (8 sets, daily range): BP systolic 110–163; BP diastolic 52–86; PULSE 82–94; RESP 16–19; TEMP 36.2–37; O2SAT 93–100; BMI 21.0
--- NOTE | 2021-03-21 00:28 | PC.NURSE ---
Strep obtained and sent.
--- NOTE | 2021-03-21 00:59 | ED.FEMALEGU ---
HPI - Female Genitourinary General Chief complaint: Urogenital-Female <Guera Aviles PA-C - Last Filed: 03/21/21 01:47> Stated complaint: Blood in urine <Guera Aviles PA-C - Last Filed: 03/21/21 01:47> Time Seen by Provider: 03/21/21 00:36 <Guera Aviles PA-C - Last Filed: 03/21/21 01:47> Source: patient and family (Has been) <Guera Aviles PA-C - Last Filed: 03/21/21 01:47> Mode of arrival: wheelchair <SHANTANU English Last Filed: 03/21/21 01:47> Limitations: no limitations and physical limitation (Wheelchair) <Guera Aviles PA-C - Last Filed: 03/21/21 01:47> History of Present Illness HPI Narrative: Patient is a 75-year-old female with a significant past medical history including right-sided breast cancer with a lumpectomy on 01/23/2021, she is slated to start radiation on 03/28/2021, she also has a history of bladder cancer with a TURBT in June 2020, was a smoker for 50 years and has COPD on 2 L of oxygen at night, hypothyroid, paroxysmal AFib on Eliquis, bipolar disorder, GERD and ESRD on dialysis Friday who presents with harvinder red blood in her urine x3 hours. She denies any abdominal pain, fevers, back pain, nausea or vomiting. She states she has been eating and drinking her normal amount, her last bowel movement was today she describes it as ?blow she, denies any blood or black in her bowels recently. <SHANTANU English Last Filed: 03/21/21 01:47> Related Data Home medications: Home Medications Medication Instructions Recorded Confirmed clonazepam 1 mg tablet 1.5 mg PO BEDTIME 05/21/20 03/20/21 lamotrigine 150 mg tablet 300 mg PO BEDTIME 05/21/20 03/20/21 acetaminophen 325 mg tablet 650 mg PO BID PRN 05/22/20 03/20/21 fluticasone 500 mcg-salmeterol 50 1 inh INHALATION BID 05/22/20 03/20/21 mcg/dose blistr powdr for inhalation (Wixela Inhub) sevelamer carbonate 800 mg tablet 800 mg PO TID 05/22/20 03/20/21 melatonin 10 mg capsule 20 mg PO BEDTIME PRN cap 09/06/20 03/20/21 clozapine 100 mg tablet 150 mg PO BEDTIME 01/04/21 03/20/21 Previous Rx's Medication Instructions Recorded miscellaneous medical supply #1 ea 08/07/20 miscellaneous medical supply #1 ea 08/16/20 Air Mattress #1 ea 08/23/20 hydroxyzine pamoate 50 mg capsule 50 mg PO BEDTIME PRN #90 cap 11/15/20 dronedarone 400 mg tablet (Multaq) 400 mg PO BID 90 Days #180 tab 01/26/21 albuterol sulfate 2.5 mg INHALATION BID 30 Days #180 02/05/21 ml apixaban 2.5 mg tablet (Eliquis) 2.5 mg PO BID #180 tab 02/05/21 doxycycline hyclate 100 mg capsule 100 mg PO BID 10 Days #20 cap 02/05/21 prochlorperazine maleate 5 mg 5 mg PO TID PRN #30 tab 03/09/21 tablet levothyroxine 125 mcg tablet 125 mcg PO QAM #90 tab 03/20/21 tamoxifen 20 mg tablet 20 mg PO DAILY #90 tab 03/20/21 <Guera Aviles PA-C - Last Filed: 03/21/21 01:47> Allergies/Adverse reactions: Allergies Allergy/AdvReac Type Severity Reaction Status Date / Time adhesive tape Allergy Intermediate Blister Verified 03/15/21 16:05 aspirin Allergy Intermediate RASH Verified 03/15/21 16:05 benztropine Allergy Intermediate RASH Verified 03/15/21 16:05 NSAIDS (Non-Steroidal Allergy Intermediate RASH Verified 03/15/21 16:05 Anti-Inflamma ziprasidone Allergy Unknown UNKNOWN Verified 03/15/21 16:05 doxycycline AdvReac Vomiting Verified 03/15/21 16:05 <Guera Aviles PA-C - Last Filed: 03/21/21 01:47> Review of Systems Review of Systems: Yes all other systems are reviewed and are negative <Guera Aviles PA-C - Last Filed: 03/21/21 01:47> [facility] Past Medical History Medical History: Medical History Abdominal pain Arrhythmia Arthritis AV fistula Bipolar 1 disorder Bowel obstruction Breast cancer Bronchopneumonia Cancer Chronic nausea COPD (chronic obstructive pulmonary disease) COVID-19 vaccine administered Dialysis patient Diarrhea Dysphagia History of 2019 novel coronavirus disease (COVID-19) Hx of hypotension Hx of radiation therapy Hypothyroidism Invasive ductal carcinoma of breast Lab test negative for COVID-19 virus Lab test positive for detection of COVID-19 virus MSSA bacteremia Paroxysmal A-fib Poor appetite Positive FIT (fecal immunochemical test) Pulmonary emboli Renal failure SBO (small bowel obstruction) Thyroid disease Vomiting Wears dentures <Guera Aviles PA-C - Last Filed: 03/21/21 01:47> Surgical History: Surgical History History of abdominal surgery History of appendectomy History of back surgery History of bladder surgery (~06/2020) History of cholecystectomy History of esophagogastroduodenoscopy (EGD) History of hand surgery History of lumpectomy of left breast History of lumpectomy of right breast History of tonsillectomy Hx of colonoscopy Hx of foot surgery <Guera Aviles PA-C - Last Filed: 03/21/21 01:47> Family History Family History: Family History Father Dementia Mother Bipolar 1 disorder Brother Heart attack Other Mental health disorder <Guera Aviles PA-C - Last Filed: 03/21/21 01:47> Social History Social History: Social History Housing: House Are you a primary animal caregiver to a significant other at home: No Do you presently have visiting nurse or other home services: Yes Alcohol intake: never Patient Tobacco Use Status: Former Tobacco user Quit Date: 2015 Tobacco use type: Cigarette Years Smoked: 50 Advance Directives: No Advance Directives Date on File: 01/23/21 service: No Current occupational status: disabled <Guera Aviles PA-C - Last Filed: 03/21/21 01:47> Physical Exam Vital Signs: Vital Signs: Last Vital Signs Temp 98.2 F 03/21/21 00:04 Pulse 92 03/21/21 03:30 Resp 18 03/21/21 03:30 BP 126/74 03/21/21 03:30 Pulse Ox 98 03/21/21 00:04 Body Mass Index 21.0 <Guera Aviles PA-C - Last Filed: 03/21/21 01:47> Vital Signs: Last Vital Signs Temp 98.2 F 03/21/21 00:04 Pulse 92 03/21/21 03:30 Resp 18 03/21/21 03:30 BP 126/74 03/21/21 03:30 Pulse Ox 98 03/21/21 00:04 Body Mass Index 21.0 <Fidel Edward MD - Last Filed: 03/21/21 04:42> Const: General: cooperative, healthy appearing, comfortable and no acute distress <Guera Aviles PA-C - Last Filed: 03/21/21 01:47> Nutritional Appearance: thin <Guera Aviles PA-C - Last Filed: 03/21/21 01:47> Orientation/consciousness: patient oriented x3 <Guera Aviles PA-C - Last Filed: 03/21/21 01:47> HENMT: Head: Yes normal to inspection <SHANTANU English Last Filed: 03/21/21 01:47> Face and sinus: Yes normal facial exam <Guera Aviles PA-C - Last Filed: 03/21/21 01:47> Eyes: General: appearance normal, both eyes and all related structures <Guera Aviles PA-C - Last Filed: 03/21/21 01:47> Neck: Neck: Yes normal visual inspection and Yes full ROM <Guera Aviles PA-C - Last Filed: 03/21/21 01:47> Chest: Other: Port in upper left chest <SHANTANU English Last Filed: 03/21/21 01:47> Resp: Effort & Inspection: normal respiratory effort and able to speak in complete sentences <Guera Aviles PA-C - Last Filed: 03/21/21 01:47> Auscultation: clear to auscultation bilaterally <Guera Aviles PA-C - Last Filed: 03/21/21 01:47> Cardio: Rate: regular rate <Guera Aviles PA-C Luis Fernando Last Filed: 03/21/21 01:47> Rhythm: regular rhythm <Guera Aviles PA-C - Last Filed: 03/21/21 01:47> Heart sounds: normal S1 and S2 <Guera Aviles PA-C - Last Filed: 03/21/21 01:47> GI: Inspection: Yes normal to inspection <Guera Aviles PA-C - Last Filed: 03/21/21 01:47> Palpation (GI): Soft to palpation and Tenderness to palpation present (GI) (Slight tenderness RLQ) <Guera Aviles PA-C - Last Filed: 03/21/21 01:47> : General: Yes no CVA tenderness <Guera Aviles PA-C Luis Fernando Last Filed: 03/21/21 01:47> Back/Spine/Pelvis: Back: no CVA tenderness <Guera Aviles PA-C - Last Filed: 03/21/21 01:47> Skin: General skin exam: no rashes or lesions noted <Guera Aviles PA-C Luis Fernando Last Filed: 03/21/21 01:47> Neuro: General: patient oriented x3 <Guera Aviles PA-C Luis Fernando Last Filed: 03/21/21 01:47> Extrem: General: Yes normal to inspection <Guera Aviles PA-C Luis Fernando Last Filed: 03/21/21 01:47> Course Course Course Narrative: Patient is a 75-year-old female with a significant past medical history including right-sided breast cancer with a lumpectomy on 01/23/2021, she is slated to start radiation on 03/28/2021, she also has a history of bladder cancer with a TURBT in June 2020, was a smoker for 50 years and has COPD on 2 L of oxygen at night, hypothyroid, paroxysmal AFib on Eliquis, bipolar disorder, GERD and ESRD on dialysis Friday who presents with harvinder red blood in her urine x3 hours. Records show patient just had a cystoscopy on December 13, [address] Gould which showed no tumors, stones or ulcers. Patient also had a PET scan on 03/14/2021 which showed: PET/PET CT fusion skull to thigh IMPRESSION: There are 2 areas of abnormal activity in the left para-aortic lymph node and left upper lobe nodule. ? No additional areas of abnormal metabolic activity seen in the chest, abdomen, pelvis or the neck to suspect any distant metastatic disease. <Guera Aviles PA-C - Last Filed: 03/21/21 01:47> Reevaluation(s) Reevaluation #1: Sign out to Dr. Palma, pending PT/INR, PTT, CT scan and UA <Guera Aviles PA-C - Last Filed: 03/21/21 01:47> Time: 01:46 <Guera Aviles PA-C - Last Filed: 03/21/21 01:47> MDM - Female Genitourinary MDM Narrative Medical decision making narrative: Patient with gross hematuria on Eliquis for AFib history of bladder cancer on dialysis CT scan of the abdomen is negative for any acute. Will admit patient for potassium of 6.1 without any acute EKG changes plan to get dialysis early today <Fidel Edward MD - Last Filed: 03/21/21 04:42> Lab Data Attestation: I reviewed the patient's lab results. <Fidel Edward MD - Last Filed: 03/21/21 04:42> Result diagrams: : 03/21/21 01:32 03/21/21 01:32 <Guera Aviles PA-C - Last Filed: 03/21/21 01:47> Labs: Lab Results 03/21/21 03/21/21 03/21/21 Range/Units 01:32 01:32 01:32 WBC 10.9 H (4.8-10.8) X10*3/uL RBC 3.64 L (4.20-5.50) X10*6/uL Hgb 11.4 L (12.0-16.0) g/dl Hct 36.2 L (37-47) % MCV 99.5 H (80-98) fL MCH 31.3 (27.0-33.0) pg MCHC 31.5 (31.0-35.0) g/dl RDW 14.1 (11.0-16.0) % Plt Count 284 (160-400) X10*3/uL MPV 8.9 L (9.4-12.3) fL Immature Gran % (Auto) 0.5 H (0.0-0.4) % Neut % (Auto) 70.1 (45-73) % Lymph % (Auto) 12.0 L (20-40) % [place] % (Auto) 11.3 H (2-11) % Eos % (Auto) 5.6 H (0-4) % Baso % (Auto) 0.5 (0-2) % Lymph # (Auto) 1.3 (1.2-4.9) X10*3/uL [place] # (Auto) 1.2 (0.1-1.2) X10*3/uL Eos # (Auto) 0.6 H (0.0-0.4) X10*3/uL Baso # (Auto) 0.1 (0.0-0.2) X10*3/uL Abs Immat Gran (auto) 0.05 H (0.00-0.03) X10*3/uL Absolute Neuts (auto) 7.7 (2.0-8.3) X10*3/uL Absolute Nucleated RBC 0.000 (0.0-0.012) X10*3/uL Nucleated RBC % (auto) 0.0 (0.0-0.2) /100WBC PT 14.2 H (9.9-13.0) SEC INR 1.2 H (0.9-1.1) APTT 44.8 H (24.1-38.0) SEC Sodium 141 (135-145) mmol/L Potassium 6.1 H* (3.3-5.1) mmol/L Chloride 102 (96-108) mmol/L Carbon Dioxide 25 (22-29) mmol/L Anion Gap 20 (12-20) BUN 44 H (9-16) mg/dL Creatinine 5.91 H* (0.5-1.4) mg/dL Estim Creat Clear Calc 7.0 Estimated GFR 7 Random Glucose 81 (60-115) mg/dL Calcium 8.9 (8.4-10.2) mg/dL Total Bilirubin 0.4 (0.0-1.0) mg/dL AST 25 (5-31) U/L ALT 53 H (0-31) U/L Alkaline Phosphatase 209 H (39-117) U/L Total Protein 6.8 (6.5-8.0) g/dL Albumin 4.0 (3.5-5.0) g/dL Urine Color Urine Appearance Urine pH (5.0-8.0) Ur Specific [place] (1.005-1.025) Urine Protein (NEG-TRACE) MG/DL Urine Glucose (UA) (NEG) MG/DL Urine Ketones (NEG) MG/DL Urine Blood (NEG) Urine Nitrite (NEG) Ur Leukocyte Esterase (NEG) Urine RBC (0) /HPF Urine WBC (0-4) /HPF Ur Squamous Epith Cells /LPF Urine Bacteria /LPF COVID-19 (PARTH) (Negative) COVID-19 Clin Com 03/21/21 03/21/21 Range/Units 01:45 03:57 WBC (4.8-10.8) X10*3/uL RBC (4.20-5.50) X10*6/uL Hgb (12.0-16.0) g/dl Hct (37-47) % MCV (80-98) fL MCH (27.0-33.0) pg MCHC (31.0-35.0) g/dl RDW (11.0-16.0) % Plt Count (160-400) X10*3/uL MPV (9.4-12.3) fL Immature Gran % (Auto) (0.0-0.4) % Neut % (Auto) (45-73) % Lymph % (Auto) (20-40) % [place] % (Auto) (2-11) % Eos % (Auto) (0-4) % Baso % (Auto) (0-2) % Lymph # (Auto) (1.2-4.9) X10*3/uL [place] # (Auto) (0.1-1.2) X10*3/uL Eos # (Auto) (0.0-0.4) X10*3/uL Baso # (Auto) (0.0-0.2) X10*3/uL Abs Immat Gran (auto) (0.00-0.03) X10*3/uL Absolute Neuts (auto) (2.0-8.3) X10*3/uL Absolute Nucleated RBC (0.0-0.012) X10*3/uL Nucleated RBC % (auto) (0.0-0.2) /100WBC PT (9.9-13.0) SEC INR (0.9-1.1) APTT (24.1-38.0) SEC Sodium (135-145) mmol/L Potassium (3.3-5.1) mmol/L Chloride (96-108) mmol/L Carbon Dioxide (22-29) mmol/L Anion Gap (12-20) BUN (9-16) mg/dL Creatinine (0.5-1.4) mg/dL Estim Creat Clear Calc Estimated GFR Random Glucose (60-115) mg/dL Calcium (8.4-10.2) mg/dL Total Bilirubin (0.0-1.0) mg/dL AST (5-31) U/L ALT (0-31) U/L Alkaline Phosphatase (39-117) U/L Total Protein (6.5-8.0) g/dL Albumin (3.5-5.0) g/dL Urine Color RED Urine Appearance TURBID Urine pH 7.5 (5.0-8.0) Ur Specific [place] 1.020 (1.005-1.025) Urine Protein 3+ H (NEG-TRACE) MG/DL Urine Glucose (UA) 100 H (NEG) MG/DL Urine Ketones NEG (NEG) MG/DL Urine Blood 3+ H (NEG) Urine Nitrite POS H (NEG) Ur Leukocyte Esterase NEG (NEG) Urine RBC TNTC H (0) /HPF Urine WBC 0-2 (0-4) /HPF Ur Squamous Epith Cells TRACE /LPF Urine Bacteria NONE /LPF COVID-19 (PARTH) Negative (Negative) COVID-19 Clin Com See Note <Guera Aviles PA-C - Last Filed: 03/21/21 01:47> Lab Results 03/21/21 03/21/21 03/21/21 Range/Units 01:32 01:32 01:32 WBC 10.9 H (4.8-10.8) X10*3/uL RBC 3.64 L (4.20-5.50) X10*6/uL Hgb 11.4 L (12.0-16.0) g/dl Hct 36.2 L (37-47) % MCV 99.5 H (80-98) fL MCH 31.3 (27.0-33.0) pg MCHC 31.5 (31.0-35.0) g/dl RDW 14.1 (11.0-16.0) % Plt Count 284 (160-400) X10*3/uL MPV 8.9 L (9.4-12.3) fL Immature Gran % (Auto) 0.5 H (0.0-0.4) % Neut % (Auto) 70.1 (45-73) % Lymph % (Auto) 12.0 L (20-40) % [place] % (Auto) 11.3 H (2-11) % Eos % (Auto) 5.6 H (0-4) % Baso % (Auto) 0.5 (0-2) % Lymph # (Auto) 1.3 (1.2-4.9) X10*3/uL [place] # (Auto) 1.2 (0.1-1.2) X10*3/uL Eos # (Auto) 0.6 H (0.0-0.4) X10*3/uL Baso # (Auto) 0.1 (0.0-0.2) X10*3/uL Abs Immat Gran (auto) 0.05 H (0.00-0.03) X10*3/uL Absolute Neuts (auto) 7.7 (2.0-8.3) X10*3/uL Absolute Nucleated RBC 0.000 (0.0-0.012) X10*3/uL Nucleated RBC % (auto) 0.0 (0.0-0.2) /100WBC PT 14.2 H (9.9-13.0) SEC INR 1.2 H (0.9-1.1) APTT 44.8 H (24.1-38.0) SEC Sodium 141 (135-145) mmol/L Potassium 6.1 H* (3.3-5.1) mmol/L Chloride 102 (96-108) mmol/L Carbon Dioxide 25 (22-29) mmol/L Anion Gap 20 (12-20) BUN 44 H (9-16) mg/dL Creatinine 5.91 H* (0.5-1.4) mg/dL Estim Creat Clear Calc 7.0 Estimated GFR 7 Random Glucose 81 (60-115) mg/dL Calcium 8.9 (8.4-10.2) mg/dL Total Bilirubin 0.4 (0.0-1.0) mg/dL AST 25 (5-31) U/L ALT 53 H (0-31) U/L Alkaline Phosphatase 209 H (39-117) U/L Total Protein 6.8 (6.5-8.0) g/dL Albumin 4.0 (3.5-5.0) g/dL Urine Color Urine Appearance Urine pH (5.0-8.0) Ur Specific [place] (1.005-1.025) Urine Protein (NEG-TRACE) MG/DL Urine Glucose (UA) (NEG) MG/DL Urine Ketones (NEG) MG/DL Urine Blood (NEG) Urine Nitrite (NEG) Ur Leukocyte Esterase (NEG) Urine RBC (0) /HPF Urine WBC (0-4) /HPF Ur Squamous Epith Cells /LPF Urine Bacteria /LPF COVID-19 (PARTH) (Negative) COVID-19 Clin Com 03/21/21 03/21/21 Range/Units 01:45 03:57 WBC (4.8-10.8) X10*3/uL RBC (4.20-5.50) X10*6/uL Hgb (12.0-16.0) g/dl Hct (37-47) % MCV (80-98) fL MCH (27.0-33.0) pg MCHC (31.0-35.0) g/dl RDW (11.0-16.0) % Plt Count (160-400) X10*3/uL MPV (9.4-12.3) fL Immature Gran % (Auto) (0.0-0.4) % Neut % (Auto) (45-73) % Lymph % (Auto) (20-40) % [place] % (Auto) (2-11) % Eos % (Auto) (0-4) % Baso % (Auto) (0-2) % Lymph # (Auto) (1.2-4.9) X10*3/uL [place] # (Auto) (0.1-1.2) X10*3/uL Eos # (Auto) (0.0-0.4) X10*3/uL Baso # (Auto) (0.0-0.2) X10*3/uL Abs Immat Gran (auto) (0.00-0.03) X10*3/uL Absolute Neuts (auto) (2.0-8.3) X10*3/uL Absolute Nucleated RBC (0.0-0.012) X10*3/uL Nucleated RBC % (auto) (0.0-0.2) /100WBC PT (9.9-13.0) SEC INR (0.9-1.1) APTT (24.1-38.0) SEC Sodium (135-145) mmol/L Potassium (3.3-5.1) mmol/L Chloride (96-108) mmol/L Carbon Dioxide (22-29) mmol/L Anion Gap (12-20) BUN (9-16) mg/dL Creatinine (0.5-1.4) mg/dL Estim Creat Clear Calc Estimated GFR Random Glucose (60-115) mg/dL Calcium (8.4-10.2) mg/dL Total Bilirubin (0.0-1.0) mg/dL AST (5-31) U/L ALT (0-31) U/L Alkaline Phosphatase (39-117) U/L Total Protein (6.5-8.0) g/dL Albumin (3.5-5.0) g/dL Urine Color RED Urine Appearance TURBID Urine pH 7.5 (5.0-8.0) Ur Specific [place] 1.020 (1.005-1.025) Urine Protein 3+ H (NEG-TRACE) MG/DL Urine Glucose (UA) 100 H (NEG) MG/DL Urine Ketones NEG (NEG) MG/DL Urine Blood 3+ H (NEG) Urine Nitrite POS H (NEG) Ur Leukocyte Esterase NEG (NEG) Urine RBC TNTC H (0) /HPF Urine WBC 0-2 (0-4) /HPF Ur Squamous Epith Cells TRACE /LPF Urine Bacteria NONE /LPF COVID-19 ([facility]) Negative (Negative) COVID-19 Clin Com See Note <Fidel Edward MD - Last Filed: 03/21/21 04:42> Discharge Plan Discharge Clinical Impression: Gross hematuria, ESRD (end stage renal disease), Acute hyperkalemia <Guera Aviles PA-C - Last Filed: 03/21/21 01:47> Patient Disposition: Admitted As Inpatient <Guera Aviles PA-C - Last Filed: 03/21/21 01:47>
[2021-03-21] MEDS: Acetaminophen 325 MG TABLET 650 MG PO (01:38)
[2021-03-21 01:48] LABS: MANUAL DIFF FLAG NO
[2021-03-21 01:52] LABS: Basophils Absolute Auto 0.1 X10*3/uL (0.0-0.2); Basophils Percent Auto 0.5 % (0-2); Eosinophils Absolute Auto 0.6 X10*3/uL (0.0-0.4); Eosinophils Percent Auto 5.6 % (0-4); Hematocrit 36.2 % (37-47); Hemoglobin 11.4 g/dl (12.0-16.0); Imm Gran Abs Auto 0.05 X10*3/uL (0.00-0.03); Imm Gran Pct Auto 0.5 % (0.0-0.4); Lymphocytes Absolute Auto 1.3 X10*3/uL (1.2-4.9); Mean Corpuscular HGB Conc 31.5 g/dl (31.0-35.0); Mean Corpuscular Hemoglobin 31.3 pg (27.0-33.0); Mean Corpuscular Volume 99.5 fL (80-98); Mean Platelet Volume 8.9 fL (9.4-12.3); Monocytes Absolute Auto 1.2 X10*3/uL (0.1-1.2); Monocytes Percent Auto 11.3 % (2-11); Neutrophils Absolute Auto 7.7 X10*3/uL (2.0-8.3); Neutrophils Percent Auto 70.1 % (45-73); Platelet Count 284 X10*3/uL (160-400); Red Blood Count 3.64 X10*6/uL (4.20-5.50); Red Cell Distribution Width 14.1 % (11.0-16.0); White Blood Count 10.9 X10*3/uL (4.8-10.8)
[2021-03-21 01:58] LABS: INTERNATIONAL NORM RATIO 1.2 (0.9-1.1); Prothrombin Time 14.2 SEC (9.9-13.0)
[2021-03-21 02:00] LABS: Partial Thromboplastin Time 44.8 SEC (24.1-38.0)
[2021-03-21 02:00] LABS: Glucose Urine UA 100 MG/DL (NEG); Leukocyte Esterase Urine NEG (NEG); PH 7.5 (5.0-8.0); UACC Culture Trigger YES; Urine Blood 3+ (NEG); Urine Ketones NEG (NEG); Urine Protein 3+ MG/DL (NEG-TRACE)
[2021-03-21 02:02] LABS: Appearance Urine TURBID; Color Urine RED; Nitrite Urine POS (NEG)
[2021-03-21 02:11] LABS: RBC Urine TNTC /HPF (0); Squamous Epithelial Cell Urine TRACE /LPF; WBC Urine 0-2 /HPF (0-4)
[2021-03-21 02:22] LABS: Alanine Aminotransferase 53 U/L (0-31); Alkaline Phosphatase 209 U/L (39-117); Anion Gap 20 (12-20); Aspartate Amino Transferase 25 U/L (5-31); Bilirubin Total 0.4 mg/dL (0.0-1.0); Blood Urea Nitrogen 44 mg/dL (9-16); Calcium 8.9 mg/dL (8.4-10.2); Carbon Dioxide 25 mmol/L (22-29); Chloride 102 mmol/L (96-108); Estimated Glomerular Filt Rate 7; Glucose Random 81 mg/dL (60-115); Potassium 6.1 mmol/L (3.3-5.1); Sodium 141 mmol/L (135-145); Total Protein 6.8 g/dL (6.5-8.0)
--- NOTE | 2021-03-21 02:47 | ECG_ITS ---
Test Reason : WEAKNESS Blood Pressure : / mmHG Vent. Rate : 088 BPM Atrial Rate : 088 BPM P-R Int : 164 ms QRS Dur : 086 ms QT Int : 394 ms P-R-T Axes : 049 021 054 degrees QTc Int : 476 ms Normal sinus rhythm Normal ECG When compared with ECG of 10-JUL-2020 23:20, No significant change was found Referred By: Fidel Edward Electronically Signed By:Amol Basilio
--- NOTE | 2021-03-21 03:32 | PC.NURSE ---
Inserted almeida, very small amount of urine in bag. Did a bladder scan and pt had 43 ml in bladder.
[2021-03-21] MEDS: Insulin Regular, Human 100 UNIT/ML 3 ML VIAL IVPUSH (03:49)
[2021-03-21] MEDS: Sodium Polystyrene Sulfon/Sorb 15 GM/60 ML ORAL.SUSP 30 GM PO (03:49)
[2021-03-21] MEDS: Calcium Gluconate/NaCl,Iso-Osm 2 GM/100 ML PLAST..BAG IV (03:51)
--- NOTE | 2021-03-21 04:04 | PC.NURSE ---
2 IV attempts by this RN unsuccessful. Medications given late due to no IV access. obtaining access to left neck, 20 ga. Pt medicated per OCT. VSS. [place] and EKG obtained by technical engineer. Pt aware of plan for admission.
[2021-03-21 04:27] LABS: COVID-19 Test Negative (Negative); IDNOW Serial# 9DD0AD1C
--- NOTE | 2021-03-21 05:26 | PC.NURSE ---
Hospitalist at bedside for eval. Med Rec completed over the phone with pts .
--- NOTE | 2021-03-21 05:33 | PM.IMHP ---
History of Present Illness Date of Service: 03/21/21 Chief Complaint: Hematuria 75-year-old female with a past medical history of hypertension, hyperlipidemia, hypothyroidism, history of paroxysmal AFib/pulmonary embolism-on Eliquis, COPD on hoime oxygen, history of breast cancer, anxiety, depression, bipolar disorder, ESRD on hemodialysis,Hc bl;adder ca s/p TURBT, fifty pack-year history of smoking, GERD, presented to the hospital with a chief complaint of harvinder blood in the urine. Patient denies any abdominal discomfort, nausea vomiting diarrhea. Denies any fever chills cough. Reports symptoms started about few hours prior to coming to the hospital. Denies any fever chills cough. Patient mentioned that she still makes little urine. Review of all other systems is negative except mentioned above ER course: For ER team. Patient noted to have gross hematuria, placed Newton catheter; CT scan showed moderate right hydronephrosis and findings consistent possible urothelial neoplasm; also noted multiple renal cysts. On labs noted to have potassium of 6.1; no EKG changes; given insulin dextrose, calcium gluconate and Kayexalate. Admitted to the hospital for further management. [facility] Medical History Abdominal pain Arrhythmia Arthritis AV fistula Bipolar 1 disorder Bladder cancer Bowel obstruction Breast cancer Bronchopneumonia Cancer Chronic nausea COPD (chronic obstructive pulmonary disease) COVID-19 vaccine administered Dialysis patient Diarrhea Dysphagia ESRD (end stage renal disease) History of 2018 novel coronavirus disease (COVID-19) Hx of hypotension Hx of radiation therapy Hypothyroidism Invasive ductal carcinoma of breast Lab test negative for COVID-19 virus Lab test positive for detection of COVID-19 virus MSSA bacteremia Paroxysmal A-fib Poor appetite Positive FIT (fecal immunochemical test) Pulmonary emboli Renal failure SBO (small bowel obstruction) Thyroid disease Vomiting Wears dentures Family History Father Dementia Mother Bipolar 1 disorder Brother Heart attack Other Mental health disorder Surgical History History of abdominal surgery History of appendectomy History of back surgery History of bladder surgery (~06/2020) History of cholecystectomy History of esophagogastroduodenoscopy (EGD) History of hand surgery History of lumpectomy of left breast History of lumpectomy of right breast History of tonsillectomy Hx of colonoscopy Hx of foot surgery Social History Household Members: Spouse Housing: House Are you a primary client care coordinator to a significant other at home: No Do you presently have visiting nurse or other home services: Yes Alcohol intake: never Patient Tobacco Use Status: Former Tobacco user Quit Date: 4 years ago Tobacco use type: Cigarette Cigarette Packs Per Day: 1.5 Cigarettes Per Day: 30.0 Years Smoked: 50 e-Cigarette/Vaping Use: Never Used Second Hand Smoke Exposure: No Advance Directives Date on File: 01/23/21 service: No Current occupational status: disabled Meds Allergies Allergy/AdvReac Type Severity Reaction Status Date / Time adhesive tape Allergy Intermediate Blister Verified 03/15/21 16:05 aspirin Allergy Intermediate RASH Verified 03/15/21 16:05 benztropine Allergy Intermediate RASH Verified 03/15/21 16:05 NSAIDS (Non-Steroidal Allergy Intermediate RASH Verified 03/15/21 16:05 Anti-Inflamma ziprasidone Allergy Unknown UNKNOWN Verified 03/15/21 16:05 doxycycline AdvReac Vomiting Verified 03/15/21 16:05 oxycodone AdvReac Anaphylaxis Verified 04/05/21 23:35 Active Medications: Current Medications Generic Name Dose Route Start Last Admin Trade Name Freq PRN Reason Stop Dose Admin Albuterol/Ipratropium 3 ml 03/21/21 04:50 Albuterol/Iprat 2.5/0.5mg 3 Ml Ampul.Neb INHALE RQ4H PRN Shortness of Breath/Wheezing Famotidine 20 mg 03/21/21 09:00 Famotidine/Pf 20 Mg/2 Ml Vial IVPUSH BID HERNESTO Oxycodone HCl 5 mg 03/21/21 04:52 Oxycodone Hcl Immed Release 5 Mg Tablet PO Q6H PRN Pain, Severe (Pain Scale 7-10) Senna 17.2 mg 03/21/21 04:52 Sennosides 8.6 Mg Tablet PO BEDTIME PRN Constipation Sodium Chloride 3 ml 03/21/21 08:00 0.9 % Sodium Chloride Flush 3 Ml Syringe IVFLUSH QSHIFT [facility] Home Medications Medication Instructions Recorded Confirmed Last Taken Type clonazepam 1 mg tablet 1.5 mg PO BEDTIME 05/21/20 04/06/21 03/24/21 History lamotrigine 150 mg tablet 300 mg PO BEDTIME 05/21/20 04/06/21 03/24/21 History acetaminophen 325 mg tablet 650 mg PO BID PRN 05/22/20 04/06/21 03/19/21 History fluticasone 500 mcg-salmeterol 50 1 inh INHALATION BID 05/22/20 04/06/21 03/25/21 History mcg/dose blistr powdr for inhalation (Wixela Inhub) sevelamer carbonate 800 mg tablet 1,600 mg PO TIDWM 05/22/20 04/06/21 03/25/21 History melatonin 10 mg capsule 20 mg PO BEDTIME PRN cap 09/06/20 04/06/21 03/20/21 History clozapine 100 mg tablet 250 mg PO BEDTIME 01/04/21 04/06/21 03/24/21 History hydroxyzine pamoate 50 mg capsule 50 mg PO BEDTIME PRN 03/21/21 04/06/21 03/20/21 03:00 History Physical Exam Vital Signs and Narrative: Vital Signs: Last Vital Signs Temp 98.2 F 03/21/21 00:04 Pulse 92 03/21/21 03:30 Resp 18 03/21/21 03:30 BP 126/74 03/21/21 03:30 Pulse Ox 98 03/21/21 00:04 Body Mass Index 21.0 Gen: Appears be in no acute distress HEENT: NCAT, Moist mucosa. Pulmonary: Vesicular breath sounds, fair air entry CVS: Normal S1-S2 Abdomen: BS+, Soft, Nontender Extremities: Warm well perfused Neuro: Alert and awake. Results Labs CBC and Chem 7: 03/25/21 06:09 03/25/21 06:09 Labs: Laboratory Results - last 24 hr 03/21/21 03/21/21 03/21/21 01:32 01:32 01:32 MCV 99.5 H MCH 31.3 MCHC 31.5 RDW 14.1 Plt Count 284 MPV 8.9 L Immature Gran % (Auto) 0.5 H Neut % (Auto) 70.1 Lymph % (Auto) 12.0 L [place] % (Auto) 11.3 H Eos % (Auto) 5.6 H Baso % (Auto) 0.5 Lymph # (Auto) 1.3 [place] # (Auto) 1.2 Eos # (Auto) 0.6 H Baso # (Auto) 0.1 Abs Immat Gran (auto) 0.05 H Absolute Neuts (auto) 7.7 Absolute Nucleated RBC 0.000 Nucleated RBC % (auto) 0.0 PT 14.2 H INR 1.2 H APTT 44.8 H Anion Gap 20 Estim Creat Clear Calc 7.0 Estimated GFR 7 Random Glucose 81 Calcium 8.9 Total Bilirubin 0.4 AST 25 ALT 53 H Alkaline Phosphatase 209 H Total Protein 6.8 Albumin 4.0 Urine Color Urine Appearance Urine pH Ur Specific [place] Urine Protein Urine Glucose (UA) Urine Ketones Urine Blood Urine Nitrite Ur Leukocyte Esterase Urine RBC Urine WBC Ur Squamous Epith Cells Urine Bacteria COVID-19 ([facility]) COVID-19 Clin Com 03/21/21 03/21/21 01:45 03:57 MCV MCH MCHC RDW Plt Count MPV Immature Gran % (Auto) Neut % (Auto) Lymph % (Auto) [place] % (Auto) Eos % (Auto) Baso % (Auto) Lymph # (Auto) [place] # (Auto) Eos # (Auto) Baso # (Auto) Abs Immat Gran (auto) Absolute Neuts (auto) Absolute Nucleated RBC Nucleated RBC % (auto) PT INR APTT Anion Gap Estim Creat Clear Calc Estimated GFR Random Glucose Calcium Total Bilirubin AST ALT Alkaline Phosphatase Total Protein Albumin Urine Color RED Urine Appearance TURBID Urine pH 7.5 Ur Specific [place] 1.020 Urine Protein 3+ H Urine Glucose (UA) 100 H Urine Ketones NEG Urine Blood 3+ H Urine Nitrite POS H Ur Leukocyte Esterase NEG Urine RBC TNTC H Urine WBC 0-2 Ur Squamous Epith Cells TRACE Urine Bacteria NONE COVID-19 ([facility]) Negative COVID-19 Clin Com See Note Imaging Radiologist's Impressions: Impressions Abdomen/Pelvis CT 03/21/21 00:54 IMPRESSION: * New moderate right hydronephrosis. There is dilatation of the distal right ureter accompanied by hyperdensity. The abnormally dilated portion measures up to 1.3 cm in diameter extending over length of approximately 4 cm. Distal to this, hypodensities present within the right ureter. Appearance is concerning for urothelial neoplasm within the distal RIGHT ureter. * Right hemicolectomy with intact enterocolic anastomosis within the midabdomen. * Innumerable bilateral renal cysts and attenuated renal parenchyma. * Long-term stability of a heterogeneous 2.6 cm left adrenal nodule. * Bilateral pulmonary parenchymal airspace opacities, with opacities in the left lower lobe and lingula similar to the prior CT, having previously shown FDG avidity, nonspecific. * Cholecystectomy. Assessment and Plan (1) Hematuria: Status: Acute 75-year-old female with a past medical history of hypertension, hyperlipidemia, hypothyroidism, anxiety, depression, bipolar, GERD, history of bladder cancer, history of breast cancer, ESRD on hemodialysis, history of pulmonary embolism/AFib-on Eliquis presented to the hospital with a chief complaint of hematuria started few hours ago prior to coming to the hospital. Hematuria: New moderate right hydronephrosis and dilation of the distal right ureter accompanied by a hyperdensity-concerning for possible urothelial neoplasm within the right ureter. Patient had Newton placed in the ER. Urology consult Hyperkalemia:. Patient received insulin, dextrose, calcium gluconate. Follow-up levels in the morning. Patient is due for hemodialysis today. Nephrology consulted. ESRD: Nephrology consult. Patient on hemodialysis Friday Hypertension/hyperlipidemia: Continue home medications History of pulmonary embolism/AFib: Rate controlled. Hold Eliquis in the setting of hematuria. For all other chronic conditions, home medications will be continued DVT prophylaxis: SCD boots Code status: Full code Quality Stroke Does the patient have a stroke diagnosis?: No VTE Prior VTE?: No VTE Risk Level:: Medical - moderate - high VTE Device Contraindication: N/A - Device Ordered VTE Drug Contraindication: Treatment Not Indicated
--- NOTE | 2021-03-21 05:36 | PC.NURSE ---
Pt incontinent of a small loose stool. Provided with taniya care and a complete bed change.
--- NOTE | 2021-03-21 06:29 | PC.NURSE ---
Pt having multiple loose BMs. Medicated with AM meds.
[2021-03-21] MEDS: Levothyroxine Sodium 125 MCG TABLET PO (06:32)
[2021-03-21] MEDS: Albuterol Sulfate (0.083%) 2.5 MG/3 ML VIAL.NEB INHALE ×2 (07:44→20:27)
[2021-03-21 08:03] LABS: MANUAL DIFF FLAG NO
[2021-03-21 08:07] LABS: Basophils Absolute Auto 0.1 X10*3/uL (0.0-0.2); Basophils Percent Auto 0.5 % (0-2); Eosinophils Absolute Auto 0.8 X10*3/uL (0.0-0.4); Eosinophils Percent Auto 6.8 % (0-4); Hematocrit 36.3 % (37-47); Hemoglobin 11.6 g/dl (12.0-16.0); Imm Gran Abs Auto 0.07 X10*3/uL (0.00-0.03); Imm Gran Pct Auto 0.6 % (0.0-0.4); Lymphocytes Absolute Auto 1.7 X10*3/uL (1.2-4.9); Lymphocytes Percent Auto 14.1 % (20-40); Mean Corpuscular Hemoglobin 31.5 pg (27.0-33.0); Mean Corpuscular Volume 98.6 fL (80-98); Mean Platelet Volume 8.8 fL (9.4-12.3); Monocytes Absolute Auto 1.4 X10*3/uL (0.1-1.2); Monocytes Percent Auto 11.9 % (2-11); Neutrophils Absolute Auto 7.9 X10*3/uL (2.0-8.3); Neutrophils Percent Auto 66.1 % (45-73); Platelet Count 286 X10*3/uL (160-400); Red Blood Count 3.68 X10*6/uL (4.20-5.50); Red Cell Distribution Width 14.2 % (11.0-16.0)
--- NOTE | 2021-03-21 08:28 | PC.NURSE ---
Pharmacy called for missing medications
[2021-03-21] MEDS: Sevelamer Carbonate Tablet 800 MG TABLET PO ×3 (08:31→20:57)
[2021-03-21] MEDS: Famotidine/PF 20 MG/2 ML VIAL IVPUSH ×2 (08:31→20:56)
[2021-03-21 09:09] LABS: Anion Gap 24 (12-20); Blood Urea Nitrogen 43 mg/dL (9-16); Calcium 10.2 mg/dL (8.4-10.2); Carbon Dioxide 22 mmol/L (22-29); Chloride 103 mmol/L (96-108); Creatinine Clr Calc Pharmacy 6.5; Estimated Glomerular Filt Rate 6; Glucose Random 94 mg/dL (60-115); Potassium 4.7 mmol/L (3.3-5.1); Sodium 144 mmol/L (135-145)
[2021-03-21] MEDS: Dronedarone HCl 400 MG TABLET PO ×2 (09:10→20:57)
[2021-03-21] MEDS: Tamoxifen Citrate 10 MG TABLET 20 MG PO (09:10)
[2021-03-21] MEDS: 0.9 % Sodium Chloride Flush 3 ML SYRINGE IVFLUSH ×3 (09:10→20:58)
--- NOTE | 2021-03-21 09:38 | PC.NURSE ---
nurse to nurse given to blane (rn) pt awar of plan of care for admission.
[2021-03-21] MEDS: Prochlorperazine Maleate 5 MG TABLET PO (10:23)
--- NOTE | 2021-03-21 10:57 | PM.UROCN ---
History of Present Illness Consult details Consult date: 03/21/21 Narrative: Prudence is a 75-year-old female. She is known to Urology. Underwent TURBT for superficial bladder cancer June 2020. Lost to follow-up as she had breast cancer and also has some memory issues with bipolar disease. Had for gotten that she had bladder cancer. Known end-stage renal disease. Presents with hematuria. Imaging now shows right hydronephrosis and question of lesion in right ureter. Current creatinine over 5. Known renal cyst disease. Discussed with prudence. Recommendation for cystoscopy with bilateral retrograde and stent placement to relieve any distal obstruction. Review of Systems Constitutional: Constitutional: Denies chills and Denies fever(s) Cardiovascular: Cardiovascular: Reports no additional cardiovascular complaints and Denies syncope Respiratory: Respiratory: Denies cough Gastrointestinal: Gastrointestinal: Denies abdominal pain and Denies heartburn Genitourinary: Genitourinary: Reports as per HPI and Denies change in libido Neurologic: Denies syncope Psychiatric: Psychiatric: Denies change in libido Endocrine: Endocrine: Denies change in libido [facility] Past Medical History Medical History Abdominal pain Arrhythmia Arthritis AV fistula Bipolar 1 disorder Bowel obstruction Breast cancer Bronchopneumonia Cancer Chronic nausea COPD (chronic obstructive pulmonary disease) COVID-19 vaccine administered Dialysis patient Diarrhea Dysphagia History of 2018 novel coronavirus disease (COVID-19) Hx of hypotension Hx of radiation therapy Hypothyroidism Invasive ductal carcinoma of breast Lab test negative for COVID-19 virus Lab test positive for detection of COVID-19 virus MSSA bacteremia Paroxysmal A-fib Poor appetite Positive FIT (fecal immunochemical test) Pulmonary emboli Renal failure SBO (small bowel obstruction) Thyroid disease Vomiting Wears dentures Family History Family History Father Dementia Mother Bipolar 1 disorder Brother Heart attack Other Mental health disorder Surgical History Surgical History History of abdominal surgery History of appendectomy History of back surgery History of bladder surgery (~06/2020) History of cholecystectomy History of esophagogastroduodenoscopy (EGD) History of hand surgery History of lumpectomy of left breast History of lumpectomy of right breast History of tonsillectomy Hx of colonoscopy Hx of foot surgery Social History Social History Household Members: Spouse Housing: House Are you a primary critical care rn to a significant other at home: No Do you presently have visiting nurse or other home services: Yes (Nurse visit) Alcohol intake: never Patient Tobacco Use Status: Former Tobacco user Quit Date: 2015 Tobacco use type: Cigarette Cigarette Packs Per Day: 1.5 Cigarettes Per Day: 30.0 Years Smoked: 50 Smoked in Last 30 Days: No e-Cigarette/Vaping Use: Never Used Patient Interested in Nicotine Replacement: No Patient Given Instructions on How to Stop Smoking: No Second Hand Smoke Exposure: No Use of substances other than those prescribed or required for medical reasons: No Have you been hit, kicked, punched, or otherwise hurt by someone within the past year? If so, by whom?: No Do you feel safe in your current relationship?: Yes Is there a partner from a previous relationship who is making you feel unsafe now?: No Are you made to feel afraid or neglected: No [facility] Practices: Taoist Advance Directives: No Advance Directives Date on File: 01/23/21 Do you have thoughts of harming others: None Do you have a plan to hurt others: No Plan Recently lost weight without trying: No Eating poorly because of decreased appetite: No Nutrition Risks: No Nutritional Risk Patient : No : No Poor oral hygiene: No service: No Current occupational status: disabled Meds Allergies Allergy/AdvReac Type Severity Reaction Status Date / Time adhesive tape Allergy Intermediate Blister Verified 03/15/21 16:05 aspirin Allergy Intermediate RASH Verified 03/15/21 16:05 benztropine Allergy Intermediate RASH Verified 03/15/21 16:05 NSAIDS (Non-Steroidal Allergy Intermediate RASH Verified 03/15/21 16:05 Anti-Inflamma ziprasidone Allergy Unknown UNKNOWN Verified 03/15/21 16:05 doxycycline AdvReac Vomiting Verified 03/15/21 16:05 Active Medications: Current Medications Generic Name Dose Route Start Last Admin Trade Name Freq PRN Reason Stop Dose Admin Acetaminophen 650 mg 03/21/21 05:44 Acetaminophen 325 Mg Tablet PO BID PRN Pain (Scale Score 1-3) Albuterol Sulfate 2.5 mg 03/21/21 09:00 03/21/21 07:44 Albuterol Sulfate (0.083%) 2.5 Mg/3 Ml Vial.Neb INHALE 2.5 mg BID HERNESTO Administration Albuterol/Ipratropium 3 ml 03/21/21 04:50 Albuterol/Iprat 2.5/0.5mg 3 Ml Ampul.Neb INHALE RQ4H PRN Shortness of Breath/Wheezing Clonazepam 1.5 mg 03/21/21 21:00 Clonazepam 0.5 Mg Tablet PO BEDTIME HERNESTO Clozapine 200 mg 03/21/21 21:00 Clozapine 100 Mg Tablet PO BEDTIME HERNESTO Clozapine 50 mg 03/21/21 21:00 Clozapine 25 Mg Tablet PO BEDTIME HERNESTO Dronedarone 400 mg 03/21/21 09:00 03/21/21 09:10 Dronedarone Hcl 400 Mg Tablet PO 400 mg BID HERNESOT Administration Famotidine 20 mg 03/21/21 09:00 03/21/21 08:31 Famotidine/Pf 20 Mg/2 Ml Vial IVPUSH 20 mg BID HERNESTO Administration Hydroxyzine HCl 50 mg 03/21/21 05:44 Hydroxyzine Hcl 50 Mg Tablet PO BEDTIME PRN Itching Lamotrigine 300 mg 03/21/21 21:00 Lamotrigine 100 Mg Tablet PO BEDTIME [facility] Levothyroxine Sodium 125 mcg 03/21/21 05:45 03/21/21 06:32 Levothyroxine Sodium 125 Mcg Tablet PO 125 mcg DAILY HERNESTO Administration Oxycodone HCl 5 mg 03/21/21 04:52 Oxycodone Hcl Immed Release 5 Mg Tablet PO Q6H PRN Pain, Severe (Pain Scale 7-10) Prochlorperazine Maleate 5 mg 03/21/21 05:44 03/21/21 10:23 Prochlorperazine Maleate 5 Mg Tablet PO 5 mg TID PRN Administration for nausea/vomiting Senna 17.2 mg 03/21/21 04:52 Sennosides 8.6 Mg Tablet PO BEDTIME PRN Constipation Sevelamer Carbonate 800 mg 03/21/21 09:00 03/21/21 08:31 Sevelamer Carbonate Tablet 800 Mg Tablet PO 800 mg TID HERNESTO Administration Sodium Chloride 3 ml 03/21/21 08:00 03/21/21 09:10 0.9 % Sodium Chloride Flush 3 Ml Syringe IVFLUSH 3 ml QSHIFT HERNESTO Administration Tamoxifen Citrate 20 mg 03/21/21 09:00 03/21/21 09:10 Tamoxifen Citrate 10 Mg Tablet PO 20 mg DAILY HERNESTO Administration Home Medications Medication Instructions Recorded Confirmed Last Taken Type clonazepam 1 mg tablet 1.5 mg PO BEDTIME 05/21/20 03/21/21 03/20/21 03:00 History lamotrigine 150 mg tablet 300 mg PO BEDTIME 05/21/20 03/21/21 03/20/21 03:00 History acetaminophen 325 mg tablet 650 mg PO BID PRN 05/22/20 03/21/21 03/19/21 History fluticasone 500 mcg-salmeterol 50 1 inh INHALATION BID 05/22/20 03/21/21 Unknown History mcg/dose blistr powdr for inhalation (Angelaxela Inhub) sevelamer carbonate 800 mg tablet 1,600 mg PO TID 05/22/20 03/21/21 03/20/21 17:00 History melatonin 10 mg capsule 20 mg PO BEDTIME PRN cap 09/06/20 03/21/21 03/20/21 History clozapine 100 mg tablet 250 mg PO BEDTIME 01/04/21 03/21/21 03/20/21 03:00 History hydroxyzine pamoate 50 mg capsule 50 mg PO BEDTIME PRN 03/21/21 03/21/21 03/20/21 03:00 History Physical Exam Vital Signs: Vital Signs: Last Vital Signs Temp 97.6 F 03/21/21 10:17 Pulse 91 03/21/21 10:17 Resp 18 03/21/21 10:17 BP 163/65 H 03/21/21 10:17 Pulse Ox 95 03/21/21 10:17 Body Mass Index 21.0 Const: General: cooperative, healthy appearing, comfortable and no acute distress Orientation/consciousness: patient oriented x3 HENMT: Face and sinus: Yes normal facial exam Mouth: moist mucous membranes Neck: Neck: Yes normal visual inspection, Yes full ROM and Yes trachea midline Chest: Chest palpation & inspection: normal inspection of the chest Resp: Effort & Inspection: normal respiratory effort, able to speak in complete sentences and no respiratory distress GI: Inspection: Yes normal to inspection Back/Spine/Pelvis: Cervical Spine: normal cervical lordosis Thoracic/Lumbar Spine: thoracic and lumbar spine normal to inspection Skin: General skin exam: no rashes or lesions noted Neuro: General: patient oriented x3, gait normal, tone normal and moves all extremities Extrem: General: Yes normal to inspection and Yes capillary refill normal Results Labs Result diagrams: 03/21/21 07:58 03/21/21 07:58 Labs: Abnormal lab results 03/21/21 03/21/21 03/21/21 Range/Units 01:32 01:32 01:32 WBC 10.9 H (4.8-10.8) X10*3/uL RBC 3.64 L (4.20-5.50) X10*6/uL Hgb 11.4 L (12.0-16.0) g/dl Hct 36.2 L (37-47) % MCV 99.5 H (80-98) fL MPV 8.9 L (9.4-12.3) fL Immature Gran % (Auto) 0.5 H (0.0-0.4) % Lymph % (Auto) 12.0 L (20-40) % [place] % (Auto) 11.3 H (2-11) % Eos % (Auto) 5.6 H (0-4) % [place] # (Auto) (0.1-1.2) X10*3/uL Eos # (Auto) 0.6 H (0.0-0.4) X10*3/uL Abs Immat Gran (auto) 0.05 H (0.00-0.03) X10*3/uL PT 14.2 H (9.9-13.0) SEC INR 1.2 H (0.9-1.1) APTT 44.8 H (24.1-38.0) SEC Potassium 6.1 H* (3.3-5.1) mmol/L Anion Gap (12-20) BUN 44 H (9-16) mg/dL Creatinine 5.91 H* (0.5-1.4) mg/dL ALT 53 H (0-31) U/L Alkaline Phosphatase 209 H (39-117) U/L Urine Protein (NEG-TRACE) MG/DL Urine Glucose (UA) (NEG) MG/DL Urine Blood (NEG) Urine Nitrite (NEG) Urine RBC (0) /HPF 08/04/21 08/04/21 08/04/21 Range/Units 01:45 07:58 07:58 WBC 12.0 H (4.8-10.8) X10*3/uL RBC 3.68 L (4.20-5.50) X10*6/uL Hgb 11.6 L (12.0-16.0) g/dl Hct 36.3 L (37-47) % MCV 98.6 H (80-98) fL MPV 8.8 L (9.4-12.3) fL Immature Gran % (Auto) 0.6 H (0.0-0.4) % Lymph % (Auto) 14.1 L (20-40) % [place] % (Auto) 11.9 H (2-11) % Eos % (Auto) 6.8 H (0-4) % [place] # (Auto) 1.4 H (0.1-1.2) X10*3/uL Eos # (Auto) 0.8 H (0.0-0.4) X10*3/uL Abs Immat Gran (auto) 0.07 H (0.00-0.03) X10*3/uL PT (9.9-13.0) SEC INR (0.9-1.1) APTT (24.1-38.0) SEC Potassium (3.3-5.1) mmol/L Anion Gap 24 H (12-20) BUN 43 H (9-16) mg/dL Creatinine 6.40 H* (0.5-1.4) mg/dL ALT (0-31) U/L Alkaline Phosphatase (39-117) U/L Urine Protein 3+ H (NEG-TRACE) MG/DL Urine Glucose (UA) 100 H (NEG) MG/DL Urine Blood 3+ H (NEG) Urine Nitrite POS H (NEG) Urine RBC TNTC H (0) /HPF Short CBC 03/21/21 03/21/21 Range/Units 01:32 07:58 WBC 10.9 H 12.0 H (4.8-10.8) X10*3/uL Hgb 11.4 L 11.6 L (12.0-16.0) g/dl Hct 36.2 L 36.3 L (37-47) % Plt Count 284 286 (160-400) X10*3/uL BMP 03/21/21 03/21/21 01:32 07:58 Sodium 141 144 Potassium 6.1 H* 4.7 D Chloride 102 103 Carbon Dioxide 25 22 BUN 44 H 43 H Creatinine 5.91 H* 6.40 H* Calcium 8.9 10.2 D Liver Function 03/21/21 Range/Units 01:32 Total Bilirubin 0.4 (0.0-1.0) mg/dL AST 25 (5-31) U/L ALT 53 H (0-31) U/L Alkaline Phosphatase 209 H (39-117) U/L Albumin 4.0 (3.5-5.0) g/dL Urine 03/21/21 Range/Units 01:45 Urine Color RED Urine Appearance TURBID Urine pH 7.5 (5.0-8.0) Ur Specific [place] 1.020 (1.005-1.025) Urine Protein 3+ H (NEG-TRACE) MG/DL Urine Glucose (UA) 100 H (NEG) MG/DL All other labs normal. Assessment and Plan (1) Bladder cancer: Status: Acute (2) Acute renal failure (ARF): Status: Acute Cystoscopy bilateral retrograde and stent placement. Question of right ureteroscopy for lesion examination. Procedures Date of Service Date of Service: 03/21/21
--- NOTE | 2021-03-21 14:12 | MHC.CM.PN ---
Addendum entered by Roxann Cisneros RN 03/21/21 14:20: ONCOLOGY: MAYNOR HERRERA Original Note: IMM 03/21/21, EMR REVIEWED, PT ADMITTED W/ HEMATURIA AND HYPERKALEMIA, CM MET W/PT WHO REPORTS SHE LIVES W/HER AND IS MOSTLY INDEPENDENT, ASSISTS NEEDED, PT IS CURRENTLY USES A WC HOWEVER PER DOES REPORT SHE PRACTISES WALKING WELL, HAS WALKER AT HOME, PT IS ACTIVE [facility] PALLIATIVE NURSE WHO VISITS EVERY TWO WEEKS, PCP, DIALYSIS CENTER, PSYCHIATRIST AND HCP VERIFIED. D/C PLAN: HOME W/[facility] FOR PALLIATIVE CARE, TO TRANSPORT. PCP: MADHURI MEHTA PSYCHIATRIST: [facility]: [facility]
[2021-03-21] MEDS: lamoTRIgine 100 MG TABLET 300 MG PO (20:56)
[2021-03-21] MEDS: clonazePAM 0.5 MG TABLET 1.5 MG PO (20:57)
[2021-03-21] MEDS: cloZAPine 25 MG TABLET 50 MG PO (20:57)
[2021-03-21] MEDS: cloZAPine 100 MG TABLET 200 MG PO (20:57)
[2021-03-22] VITALS (14 sets, daily range): BP systolic 85–148; BP diastolic 45–85; PULSE 73–93; RESP 16–20; TEMP 36.1–37.3; O2SAT 92–100
[2021-03-22] MEDS: Albuterol Sulfate (0.083%) 2.5 MG/3 ML VIAL.NEB INHALE ×2 (07:30→20:03)
[2021-03-22 07:42] LABS: Hematocrit 32.9 % (37-47); Hemoglobin 10.8 g/dl (12.0-16.0); Mean Corpuscular HGB Conc 32.8 g/dl (31.0-35.0); Mean Corpuscular Volume 97.3 fL (80-98); Mean Platelet Volume 8.9 fL (9.4-12.3); Platelet Count 234 X10*3/uL (160-400); Red Blood Count 3.38 X10*6/uL (4.20-5.50); Red Cell Distribution Width 14.1 % (11.0-16.0); White Blood Count 8.2 X10*3/uL (4.8-10.8)
[2021-03-22 08:19] LABS: Anion Gap 16 (12-20); Blood Urea Nitrogen 15 mg/dL (9-16); Calcium 9.3 mg/dL (8.4-10.2); Carbon Dioxide 22 mmol/L (22-29); Chloride 100 mmol/L (96-108); Creatinine Clr Calc Pharmacy 11.6; Estimated Glomerular Filt Rate 13; Glucose Random 82 mg/dL (60-115); Potassium 4.1 mmol/L (3.3-5.1); Sodium 134 mmol/L (135-145)
[2021-03-22] MEDS: Tamoxifen Citrate 10 MG TABLET 20 MG PO (08:34)
[2021-03-22] MEDS: Dronedarone HCl 400 MG TABLET PO ×2 (08:35→21:40)
[2021-03-22] MEDS: Sevelamer Carbonate Tablet 800 MG TABLET PO ×2 (08:35→21:39)
[2021-03-22] MEDS: Levothyroxine Sodium 125 MCG TABLET PO (08:36)
[2021-03-22] MEDS: 0.9 % Sodium Chloride Flush 3 ML SYRINGE IVFLUSH ×2 (08:36→21:41)
[2021-03-22] MEDS: Famotidine/PF 20 MG/2 ML VIAL IVPUSH ×2 (08:36→21:40)
--- NOTE | 2021-03-22 11:40 | HO.PM.IMPN ---
Subjective Subjective Date of Service: 03/22/21 Interval History: tired Constitutional Constitutional: Reports no additional constitutional complaints Cardiovascular Cardiovascular: Reports no additional cardiovascular complaints Physical Exam Vital Signs: Vital Signs: Last Vital Signs Temp 98 F 03/22/21 10:55 Pulse 75 03/22/21 10:55 Resp 18 03/22/21 10:55 BP 100/54 L 03/22/21 11:21 Pulse Ox 100 03/22/21 10:55 Body Mass Index 21.0 General: lethargic O X 3, no acute distress Resp: CTA bilateral CVS: S1,S2,RRR GI: soft, non tender, non distended Neuro: motor grossly intact Psych: appropriate affect Objective Data Current Medications Generic Name Dose Route Start Last Admin Trade Name Freq PRN Reason Stop Dose Admin Acetaminophen 650 mg 03/21/21 05:44 Acetaminophen 325 Mg Tablet PO BID PRN Pain (Scale Score 1-3) Albuterol Sulfate 2.5 mg 03/21/21 09:00 03/22/21 07:30 Albuterol Sulfate (0.083%) 2.5 Mg/3 Ml Vial.Neb INHALE 2.5 mg BID HERNESTO Administration Albuterol/Ipratropium 3 ml 03/21/21 04:50 Albuterol/Iprat 2.5/0.5mg 3 Ml Ampul.Neb INHALE RQ4H PRN Shortness of Breath/Wheezing Clonazepam 1.5 mg 03/21/21 21:00 03/21/21 20:57 Clonazepam 0.5 Mg Tablet PO 1.5 mg BEDTIME HERNESTO Administration Clozapine 200 mg 03/21/21 21:00 03/21/21 20:57 Clozapine 100 Mg Tablet PO 200 mg BEDTIME HERNESTO Administration Clozapine 50 mg 03/21/21 21:00 03/21/21 20:57 Clozapine 25 Mg Tablet PO 50 mg BEDTIME HERNESTO Administration Dronedarone 400 mg 03/21/21 09:00 03/22/21 08:35 Dronedarone Hcl 400 Mg Tablet PO 400 mg BID HERNESTO Administration Famotidine 20 mg 03/21/21 09:00 03/22/21 08:36 Famotidine/Pf 20 Mg/2 Ml Vial IVPUSH 20 mg BID HERNESTO Administration Hydroxyzine HCl 50 mg 03/21/21 05:44 Hydroxyzine Hcl 50 Mg Tablet PO BEDTIME PRN Itching Lamotrigine 300 mg 03/21/21 21:00 03/21/21 20:56 Lamotrigine 100 Mg Tablet PO 300 mg BEDTIME HERNESTO Administration Levothyroxine Sodium 125 mcg 03/21/21 05:45 03/22/21 08:36 Levothyroxine Sodium 125 Mcg Tablet PO 125 mcg DAILY HERNESTO Administration Oxycodone HCl 5 mg 03/21/21 04:52 Oxycodone Hcl Immed Release 5 Mg Tablet PO Q6H PRN Pain, Severe (Pain Scale 7-10) Prochlorperazine Maleate 5 mg 03/21/21 05:44 03/21/21 10:23 Prochlorperazine Maleate 5 Mg Tablet PO 5 mg TID PRN Administration for nausea/vomiting Senna 17.2 mg 03/21/21 04:52 Sennosides 8.6 Mg Tablet PO BEDTIME PRN Constipation Sevelamer Carbonate 800 mg 03/21/21 09:00 03/22/21 08:35 Sevelamer Carbonate Tablet 800 Mg Tablet PO 800 mg TID HERNESTO Administration Sodium Chloride 3 ml 03/21/21 08:00 03/22/21 08:36 0.9 % Sodium Chloride Flush 3 Ml Syringe IVFLUSH 3 ml QSHIFT HERNESTO Administration Tamoxifen Citrate 20 mg 03/21/21 09:00 03/22/21 08:34 Tamoxifen Citrate 10 Mg Tablet PO 20 mg DAILY HERNESTO Administration Labs CBC & Chem 7: 03/22/21 07:30 03/22/21 07:30 Labs: Laboratory Results - last 24 hr 03/22/21 03/22/21 07:30 07:30 MCV 97.3 MCH 32.0 MCHC 32.8 RDW 14.1 Plt Count 234 MPV 8.9 L Absolute Nucleated RBC 0.000 Nucleated RBC % (auto) 0.0 Anion Gap 16 Estim Creat Clear Calc 11.6 Estimated GFR 13 Random Glucose 82 Calcium 9.3 D Assessment and Plan (1) Acute hyperkalemia: Status: Acute Assessment and Plan: 75F presented with hematuria hematuria, hydro plan for cystoscopy today hyperkalemia, ESRD resolved hyperkalemia hypothryoid synthroid hisotry of pe/afib holding eleiquis for hematuria Quality Stroke Does the patient have a stroke diagnosis?: No VTE Prior VTE?: Yes VTE Risk Level:: Medical - moderate - high VTE Device Contraindication: N/A - Device Ordered VTE Drug Contraindication: Treatment Not Indicated
--- NOTE | 2021-03-22 11:57 | PM.PNNEP ---
Subjective Subjective Date of Service: 03/22/21 Principal diagnosis: ESRD Interval history: tired Physical Exam Vital Signs: Vital Signs: Last Vital Signs Temp 98 F 03/22/21 10:55 Pulse 75 03/22/21 10:55 Resp 18 03/22/21 10:55 BP 100/54 L 03/22/21 11:21 Pulse Ox 100 03/22/21 10:55 Body Mass Index 21.0 Const: General: cooperative, healthy appearing, comfortable and no acute distress Nutritional Appearance: thin Orientation/consciousness: patient oriented x3 HENMT: Head: Yes normal to inspection Face and sinus: Yes normal facial exam Mouth: moist mucous membranes Eyes: General: appearance normal, both eyes and all related structures Neck: Neck: Yes normal visual inspection, Yes full ROM and Yes trachea midline Chest: Other: Port in upper left chest Chest palpation & inspection: normal inspection of the chest Resp: Effort & Inspection: normal respiratory effort, able to speak in complete sentences and no respiratory distress Auscultation: clear to auscultation bilaterally Cardio: Rate: regular rate Rhythm: regular rhythm Heart sounds: normal S1 and S2 GI: Inspection: Yes normal to inspection Palpation (GI): Soft to palpation and Tenderness to palpation present (GI) (Slight tenderness RLQ) : General: Yes no CVA tenderness Back/Spine/Pelvis: Back: no CVA tenderness Cervical Spine: normal cervical lordosis Thoracic/Lumbar Spine: thoracic and lumbar spine normal to inspection Skin: General skin exam: no rashes or lesions noted Neuro: General: patient oriented x3, gait normal, tone normal and moves all extremities Extrem: General: Yes normal to inspection and Yes capillary refill normal Objective Data Labs CBC & Chem 7: 03/22/21 07:30 03/22/21 07:30 Labs: Laboratory Results - last 24 hr 03/22/21 03/22/21 07:30 07:30 WBC 8.2 RBC 3.38 L Hgb 10.8 L Hct 32.9 L MCV 97.3 MCH 32.0 MCHC 32.8 RDW 14.1 Plt Count 234 MPV 8.9 L Absolute Nucleated RBC 0.000 Nucleated RBC % (auto) 0.0 Sodium 134 L Potassium 4.1 Chloride 100 Carbon Dioxide 22 Anion Gap 16 BUN 15 D Creatinine 3.55 H Estim Creat Clear Calc 11.6 Estimated GFR 13 Random Glucose 82 Calcium 9.3 D Procedures Date of Service Date of Service: 03/22/21 Assessment & Plan Assessment and plan (1) Acute hyperkalemia: Status: Acute Assessment and Plan: 1. ESRD: mwf schedule 2. GHematuria: w/u in progress; a.c. on hold 3. HyperK: resolved REC: cont HD mwf; w/u Time Spent With Patient Time: Total time spent is greater than 50% in coordination of care (as documented) at patient's floor/unit and/or counseling patient: Progress Note: Quality Stroke Does the patient have a stroke diagnosis?: No
--- NOTE | 2021-03-22 15:45 | HO.ANESPROP2 ---
[facility] Active Problems Active Problems: All Active Problems (Updated 03/22/21 @ 11:41 by Aguila Ramos MD) Gross hematuria (Acute) Acute hyperkalemia (Acute) Breast cancer, right breast (Acute) Bronchopneumonia (Acute) Dysphagia (Acute) ESRD (end stage renal disease) (Chronic) Bipolar disorder (Acute) C. difficile diarrhea (Acute) Seizure (Acute) GERD (gastroesophageal reflux disease) (Acute) Sepsis (Acute) Hypotension (Acute) Bladder cancer (Acute) Anemia (Acute) Heme positive stool (Acute) Constipation (Acute) Invasive ductal carcinoma of breast (Acute) Chronic nausea (Acute) Positive FIT (fecal immunochemical test) (Acute) MSSA bacteremia (Acute) Paroxysmal A-fib (Acute) Hypothyroidism (Acute) COPD (chronic obstructive pulmonary disease) (Acute) Past Medical History Medical History Abdominal pain Arrhythmia Arthritis AV fistula Bipolar 1 disorder Bowel obstruction Breast cancer Bronchopneumonia Cancer Chronic nausea COPD (chronic obstructive pulmonary disease) COVID-19 vaccine administered Dialysis patient Diarrhea Dysphagia History of 2018 novel coronavirus disease (COVID-19) Hx of hypotension Hx of radiation therapy Hypothyroidism Invasive ductal carcinoma of breast Lab test negative for COVID-19 virus Lab test positive for detection of COVID-19 virus MSSA bacteremia Paroxysmal A-fib Poor appetite Positive FIT (fecal immunochemical test) Pulmonary emboli Renal failure SBO (small bowel obstruction) Thyroid disease Vomiting Wears dentures Family History Family History Father Dementia Mother Bipolar 1 disorder Brother Heart attack Other Mental health disorder Family history of problems with anesthesia: No Surgical History Surgical History History of abdominal surgery History of appendectomy History of back surgery History of bladder surgery (~06/2020) History of cholecystectomy History of esophagogastroduodenoscopy (EGD) History of hand surgery History of lumpectomy of left breast History of lumpectomy of right breast History of tonsillectomy Hx of colonoscopy Hx of foot surgery History of Problems with Anesthesia: No Social History Social History Household Members: Spouse Housing: House Are you a primary respiratory care technician to a significant other at home: No Do you presently have visiting nurse or other home services: Yes (Nurse visit) Alcohol intake: never Patient Tobacco Use Status: Former Tobacco user Quit Date: 2015 Tobacco use type: Cigarette Cigarette Packs Per Day: 1.5 Cigarettes Per Day: 30.0 Years Smoked: 50 Smoked in Last 30 Days: No e-Cigarette/Vaping Use: Never Used Patient Interested in Nicotine Replacement: No Patient Given Instructions on How to Stop Smoking: No Second Hand Smoke Exposure: No Use of substances other than those prescribed or required for medical reasons: No Currently Displaying Signs/Symptoms of Drug Intoxication Withdrawal: No Have you been hit, kicked, punched, or otherwise hurt by someone within the past year? If so, by whom?: No Do you feel safe in your current relationship?: Yes Is there a partner from a previous relationship who is making you feel unsafe now?: No Are you made to feel afraid or neglected: No Denominational Healthcare Practices: Rastafarian Advance Directives: No Advance Directives Date on File: 01/23/21 Do you have thoughts of harming others: None Do you have a plan to hurt others: No Plan Recently lost weight without trying: No Eating poorly because of decreased appetite: No Nutrition Risks: No Nutritional Risk Patient : No : No Poor oral hygiene: No service: No Current occupational status: disabled Meds Allergies Allergy/AdvReac Type Severity Reaction Status Date / Time adhesive tape Allergy Intermediate Blister Verified 03/15/21 16:05 aspirin Allergy Intermediate RASH Verified 03/15/21 16:05 benztropine Allergy Intermediate RASH Verified 03/15/21 16:05 NSAIDS (Non-Steroidal Allergy Intermediate RASH Verified 03/15/21 16:05 Anti-Inflamma ziprasidone Allergy Unknown UNKNOWN Verified 03/15/21 16:05 doxycycline AdvReac Vomiting Verified 03/15/21 16:05 Active Medications: Current Medications Generic Name Dose Route Start Last Admin Trade Name Freq PRN Reason Stop Dose Admin Acetaminophen 650 mg 03/21/21 05:44 Acetaminophen 325 Mg Tablet PO BID PRN Pain (Scale Score 1-3) Albuterol Sulfate 2.5 mg 03/21/21 09:00 03/22/21 07:30 Albuterol Sulfate (0.083%) 2.5 Mg/3 Ml Vial.Neb INHALE 2.5 mg BID HERNESTO Administration Albuterol/Ipratropium 3 ml 03/21/21 04:50 Albuterol/Iprat 2.5/0.5mg 3 Ml Ampul.Neb INHALE RQ4H PRN Shortness of Breath/Wheezing Clonazepam 1.5 mg 03/21/21 21:00 03/21/21 20:57 Clonazepam 0.5 Mg Tablet PO 1.5 mg BEDTIME HERNESTO Administration Clozapine 200 mg 03/21/21 21:00 03/21/21 20:57 Clozapine 100 Mg Tablet PO 200 mg BEDTIME HERNESTO Administration Clozapine 50 mg 03/21/21 21:00 03/21/21 20:57 Clozapine 25 Mg Tablet PO 50 mg BEDTIME HERNESTO Administration Dronedarone 400 mg 03/21/21 09:00 03/22/21 08:35 Dronedarone Hcl 400 Mg Tablet PO 400 mg BID HERNESTO Administration Famotidine 20 mg 03/21/21 09:00 03/22/21 08:36 Famotidine/Pf 20 Mg/2 Ml Vial IVPUSH 20 mg BID HERNESTO Administration Hydroxyzine HCl 50 mg 03/21/21 05:44 Hydroxyzine Hcl 50 Mg Tablet PO BEDTIME PRN Itching Lamotrigine 300 mg 03/21/21 21:00 03/21/21 20:56 Lamotrigine 100 Mg Tablet PO 300 mg BEDTIME HERNESTO Administration Levothyroxine Sodium 125 mcg 03/21/21 05:45 03/22/21 08:36 Levothyroxine Sodium 125 Mcg Tablet PO 125 mcg DAILY HERNESTO Administration Oxycodone HCl 5 mg 03/21/21 04:52 Oxycodone Hcl Immed Release 5 Mg Tablet PO Q6H PRN Pain, Severe (Pain Scale 7-10) Prochlorperazine Maleate 5 mg 03/21/21 05:44 03/21/21 10:23 Prochlorperazine Maleate 5 Mg Tablet PO 5 mg TID PRN Administration for nausea/vomiting Senna 17.2 mg 03/21/21 04:52 Sennosides 8.6 Mg Tablet PO BEDTIME PRN Constipation Sevelamer Carbonate 800 mg 03/21/21 09:00 03/22/21 08:35 Sevelamer Carbonate Tablet 800 Mg Tablet PO 800 mg TID HERNESTO Administration Sodium Chloride 3 ml 03/21/21 08:00 08/05/21 08:36 0.9 % Sodium Chloride Flush 3 Ml Syringe IVFLUSH 3 ml QSHIFT HERNESTO Administration Tamoxifen Citrate 20 mg 03/21/21 09:00 03/22/21 08:34 Tamoxifen Citrate 10 Mg Tablet PO 20 mg DAILY HERNESTO Administration Home Medications Medication Instructions Recorded Confirmed Last Taken Type clonazepam 1 mg tablet 1.5 mg PO BEDTIME 05/21/20 03/21/21 03/20/21 03:00 History lamotrigine 150 mg tablet 300 mg PO BEDTIME 05/21/20 03/21/21 03/20/21 03:00 History acetaminophen 325 mg tablet 650 mg PO BID PRN 05/22/20 03/21/21 03/19/21 History fluticasone 500 mcg-salmeterol 50 1 inh INHALATION BID 05/22/20 03/21/21 Unknown History mcg/dose blistr powdr for inhalation (Wixela Inhub) sevelamer carbonate 800 mg tablet 1,600 mg PO TID 05/22/20 03/21/21 03/20/21 17:00 History melatonin 10 mg capsule 20 mg PO BEDTIME PRN cap 09/06/20 03/21/21 03/20/21 History clozapine 100 mg tablet 250 mg PO BEDTIME 01/04/21 03/21/21 03/20/21 03:00 History hydroxyzine pamoate 50 mg capsule 50 mg PO BEDTIME PRN 03/21/21 03/21/21 03/20/21 03:00 History Exam Exam Date and Time: March 22, 2021 1545 Height,Weight and Vital Signs: Height 5 ft 3 in Weight 53.977 kg Last Vital Signs Temp 98 F 03/22/21 10:55 Pulse 75 03/22/21 10:55 Resp 18 03/22/21 10:55 BP 100/54 L 03/22/21 11:21 Pulse Ox 100 03/22/21 10:55 Pertinent Lab Results Pertinent Lab Results: Laboratory Tests 03/21/21 03/21/21 03/21/21 01:32 01:32 01:32 WBC 10.9 H RBC 3.64 L Hgb 11.4 L Hct 36.2 L MCV 99.5 H MCH 31.3 MCHC 31.5 RDW 14.1 Plt Count 284 MPV 8.9 L Immature Gran % (Auto) 0.5 H Neut % (Auto) 70.1 Lymph % (Auto) 12.0 L Burke % (Auto) 11.3 H Eos % (Auto) 5.6 H Baso % (Auto) 0.5 Lymph # (Auto) 1.3 Burke # (Auto) 1.2 Eos # (Auto) 0.6 H Baso # (Auto) 0.1 Abs Immat Gran (auto) 0.05 H Absolute Neuts (auto) 7.7 Absolute Nucleated RBC 0.000 Nucleated RBC % (auto) 0.0 PT 14.2 H INR 1.2 H APTT 44.8 H Sodium 141 Potassium 6.1 H* Chloride 102 Carbon Dioxide 25 Anion Gap 20 BUN 44 H Creatinine 5.91 H* Estim Creat Clear Calc 7.0 Estimated GFR 7 Random Glucose 81 Calcium 8.9 Total Bilirubin 0.4 AST 25 ALT 53 H Alkaline Phosphatase 209 H Total Protein 6.8 Albumin 4.0 Urine Color Urine Appearance Urine pH Ur Specific [place] Urine Protein Urine Glucose (UA) Urine Ketones Urine Blood Urine Nitrite Ur Leukocyte Esterase Urine RBC Urine WBC Ur Squamous Epith Cells Urine Bacteria COVID-19 ([facility]) COVID-19 Clin Com 03/21/21 03/21/21 03/21/21 01:45 03:57 07:58 WBC 12.0 H RBC 3.68 L Hgb 11.6 L Hct 36.3 L MCV 98.6 H MCH 31.5 MCHC 32.0 RDW 14.2 Plt Count 286 MPV 8.8 L Immature Gran % (Auto) 0.6 H Neut % (Auto) 66.1 Lymph % (Auto) 14.1 L Burke % (Auto) 11.9 H Eos % (Auto) 6.8 H Baso % (Auto) 0.5 Lymph # (Auto) 1.7 Burke # (Auto) 1.4 H Eos # (Auto) 0.8 H Baso # (Auto) 0.1 Abs Immat Gran (auto) 0.07 H Absolute Neuts (auto) 7.9 Absolute Nucleated RBC 0.000 Nucleated RBC % (auto) 0.0 PT INR APTT Sodium Potassium Chloride Carbon Dioxide Anion Gap BUN Creatinine Estim Creat Clear Calc Estimated GFR Random Glucose Calcium Total Bilirubin AST ALT Alkaline Phosphatase Total Protein Albumin Urine Color RED Urine Appearance TURBID Urine pH 7.5 Ur Specific [place] 1.020 Urine Protein 3+ H Urine Glucose (UA) 100 H Urine Ketones NEG Urine Blood 3+ H Urine Nitrite POS H Ur Leukocyte Esterase NEG Urine RBC TNTC H Urine WBC 0-2 Ur Squamous Epith Cells TRACE Urine Bacteria NONE COVID-19 ([facility]) Negative COVID-19 Clin Com See Note 03/21/21 03/22/21 03/22/21 07:58 07:30 07:30 WBC 8.2 RBC 3.38 L Hgb 10.8 L Hct 32.9 L MCV 97.3 MCH 32.0 MCHC 32.8 RDW 14.1 Plt Count 234 MPV 8.9 L Immature Gran % (Auto) Neut % (Auto) Lymph % (Auto) [place] % (Auto) Eos % (Auto) Baso % (Auto) Lymph # (Auto) Burke # (Auto) Eos # (Auto) Baso # (Auto) Abs Immat Gran (auto) Absolute Neuts (auto) Absolute Nucleated RBC 0.000 Nucleated RBC % (auto) 0.0 PT INR APTT Sodium 144 134 L Potassium 4.7 D 4.1 Chloride 103 100 Carbon Dioxide 22 22 Anion Gap 24 H 16 BUN 43 H 15 D Creatinine 6.40 H* 3.55 H Estim Creat Clear Calc 6.5 11.6 Estimated GFR 6 13 Random Glucose 94 82 Calcium 10.2 D 9.3 D Total Bilirubin AST ALT Alkaline Phosphatase Total Protein Albumin Urine Color Urine Appearance Urine pH Ur Specific [place] Urine Protein Urine Glucose (UA) Urine Ketones Urine Blood Urine Nitrite Ur Leukocyte Esterase Urine RBC Urine WBC Ur Squamous Epith Cells Urine Bacteria COVID-19 ([facility]) COVID-19 Clin Com Airway Denture: Upper and Lower Assessment and Plan Final Anesthetic Review Family History of Problems with Anesthesia: No History of Problems with Anesthesia: No
--- NOTE | 2021-03-22 16:50 | MHC.SHP ---
Pre-Procedural Eval Section A Date of Service: 03/22/21 The patient is an INPATIENT: Yes Changes since office visit: No Cold of Flu in the past 2 weeks, No New Medical Problems, No Changes in Medication and No Patient answered all questions The History & Physical has been completed within 30 days and I have reviewed it.: Yes Section B Chief Complaint: Hyperkalemia; Hematuria Allergies: Allergies Allergy/AdvReac Type Severity Reaction Status Date / Time adhesive tape Allergy Intermediate Blister Verified 03/15/21 16:05 aspirin Allergy Intermediate RASH Verified 03/15/21 16:05 benztropine Allergy Intermediate RASH Verified 03/15/21 16:05 NSAIDS (Non-Steroidal Allergy Intermediate RASH Verified 03/15/21 16:05 Anti-Inflamma ziprasidone Allergy Unknown UNKNOWN Verified 03/15/21 16:05 doxycycline AdvReac Vomiting Verified 03/15/21 16:05 Plan Diagnosis/Plan: Unchanged (cystoscopy, bilateral retrograds, right ureteroscopy, bilateral stents) I have reviewed the history and physical and performed a pertinent physical examination on my patient. No changes have occurred unless specified.
--- NOTE | 2021-03-22 17:51 | P.OP_ITS ---
Operative Note Operative Note Date of Service: 03/22/21 Narrative: PreOperative Diagnosis: Elevated creatinine with right ureteric filling defect and hematuria Post Operative Diagnosis: 1. 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 Multiple small bladder cancer recurrence Procedure: 1. Left retrograde 2. Left stent placement 3. Right retrograde 4. Right ureteroscopy with evacuation of clot from right ureter 5. Right stent placement 6. Fulguration of multiple (5) small sub 1 cm bladder cancer recurrences Surgeon: Dr Marshal Gould Anesthesia: General Indications for procedure: This is a 75-year-old female. Known to Urology. Had undergone TURBT for superficial bladder cancer last May. Had failed to present in follow-up secondary to hospital admissions for resolution of other medical issues. Re- presented. Hospital 2 days ago with elevated creatinine and hematuria. Imaging suggested filling defect on the right ureter. Has undergone emergent hemodialysis. Current plan is for cystoscopy with retrograde and possible stent placement bilaterally. Procedure: After informed consent was verified the patient was brought to the operating room and placed in a supine position. Anesthesia was administered per protocol. Patient was placed in a modified dorsal lithotomy position and prepped and draped in sterile fashion. Safety pause time-out was observed. Antibiotics being given. Twenty-two Georgian cystoscope inserted per urethra. The bladder was examined in its entirety. There were multiple small mucosal lesions consistent with recurrent superficial bladder cancer. There was blood clot emanating from the right ureteric orifice. Left ureteric orifice. Normal. A retrograde examination performed on left side. No filling defects seen. A 6 Georgian by 24 cm double-J ureteric catheter was placed without difficulty on the left side. On the right side a retrograde examination was performed. Significant filling defect was seen throughout the distal 2/3 of the ureter. Much of this appeared to be consistent with clot however delineation of cores was not possible. A semi rigid ureteral scope was placed alongside the wire up the right ureter. Clot was encountered. Clot was removed with basketing. We followed the clot up and there was transfer come Georgian all ureteric transitional cell carcinoma approximately [address] up the ureter at the junction between the proximal and mid ureter portion. Due to her unstable nature and hemodialysis requirements a decision was made that rather than perform extensive fulguration in removal via endoscopy at this setting placement of a ureteric stent is warranted for resolution of ureteric obstruction and as part of an attempt to normalize her renal function. A 6 Georgian by 24 cm double-J ureteric catheter was placed without difficulty on the right side. At this point fulguration of the multiple bladder lesions were performed. There were approximately 5 lesions. None were greater than 1 cm. They were all fulgurated without difficulty. Newton catheter was placed at the completion the procedure to allow for drainage and resolution of any lower tract obstruction. She tolerated procedure well was extubated in operating room transferred in stable condition to the recovery area. Pathology: [] Drains: bilateral double J stents
[2021-03-22] MEDS: traMADoL HCL 50 MG TABLET 25 MG PO (19:47)
[2021-03-22] MEDS: Lactated Ringers 1,000 ML 100 ML IVCONT (19:53)
--- NOTE | 2021-03-22 20:12 | PC.NURSE ---
The patient and her informed me that she cannot have oxycodone. I alerted the MD and he changed the order to tramadol.
[2021-03-22] MEDS: cloZAPine 100 MG TABLET 200 MG PO (21:38)
[2021-03-22] MEDS: cloZAPine 25 MG TABLET 50 MG PO (21:39)
[2021-03-22] MEDS: clonazePAM 0.5 MG TABLET 1.5 MG PO (21:39)
[2021-03-22] MEDS: lamoTRIgine 100 MG TABLET 300 MG PO (21:40)
[2021-03-22] MEDS: hydrOXYzine HCL 50 MG TABLET PO (21:41)
[2021-03-23 04:00] VITALS: BP 102/49; PULSE 93; RESP 20; TEMP 37; O2SAT 93
[2021-03-23] MEDS: Lactated Ringers 1,000 ML 100 ML IVCONT (04:39)
[2021-03-23 07:05] LABS: Hematocrit 32.5 % (37-47); Hemoglobin 10.6 g/dl (12.0-16.0); Mean Corpuscular HGB Conc 32.6 g/dl (31.0-35.0); Mean Corpuscular Hemoglobin 32.1 pg (27.0-33.0); Mean Corpuscular Volume 98.5 fL (80-98); Mean Platelet Volume 9.4 fL (9.4-12.3); Platelet Count 247 X10*3/uL (160-400); White Blood Count 12.4 X10*3/uL (4.8-10.8)
[2021-03-23 07:30] VITALS: BP 108/44; PULSE 84; RESP 20; TEMP 36.2; O2SAT 94
[2021-03-23 08:12] LABS: Anion Gap 24 (12-20); Blood Urea Nitrogen 29 mg/dL (9-16); Calcium 8.5 mg/dL (8.4-10.2); Carbon Dioxide 16 mmol/L (22-29); Chloride 101 mmol/L (96-108); Creatinine Clr Calc Pharmacy 7.8; Estimated Glomerular Filt Rate 8; Glucose Fasting 111 mg/dL (60-99); Sodium 136 mmol/L (135-145)
[2021-03-23] MEDS: traMADoL HCL 50 MG TABLET 25 MG PO ×2 (09:14→16:44)
--- NOTE | 2021-03-23 10:09 | HO.POSTANES ---
Post Anesthesia Evaluation Post Anesthesia Evaluation Vital Signs: Vital Signs Temp Pulse Resp BP Pulse Ox 03/23/21 07:30 97.1 F 84 20 108/44 L 94 03/23/21 04:00 98.6 F 93 20 102/49 L 93 03/22/21 23:43 98.6 F 93 18 148/76 H 96 Anesthesia: General Mental Status: Awake Pain Control: Satisfactory Nausea/Vomiting: None Hydration: Adequate Anesthesia-Related Issues: No Anes. Related Issues
[2021-03-23] MEDS: Acetaminophen 325 MG TABLET 650 MG PO (10:53)
--- NOTE | 2021-03-23 11:45 | HO.PM.IMPN ---
Subjective Subjective Date of Service: 03/23/21 Interval History: weak, hematuria Constitutional Constitutional: Reports no additional constitutional complaints Eyes Eyes: Reports no additional eye complaints Physical Exam Vital Signs: Vital Signs: Last Vital Signs Temp 97.1 F 03/23/21 07:30 Pulse 84 03/23/21 07:30 Resp 20 03/23/21 07:30 BP 108/44 L 03/23/21 07:30 Pulse Ox 94 03/23/21 07:30 Body Mass Index 21.0 General: lethargic O X 3, no acute distress Resp:? CTA bilateral CVS: S1,S2,RRR GI: soft, non tender, non distended Neuro:? motor grossly intact Psych: appropriate affect Objective Data Current Medications Generic Name Dose Route Start Last Admin Trade Name Freq PRN Reason Stop Dose Admin Acetaminophen 650 mg 03/21/21 05:44 03/23/21 10:53 Acetaminophen 325 Mg Tablet PO 650 mg BID PRN Administration Pain (Scale Score 1-3) Albuterol Sulfate 2.5 mg 03/21/21 09:00 03/23/21 07:56 Albuterol Sulfate (0.083%) 2.5 Mg/3 Ml Vial.Neb INHALE Not Given BID HERNESTO Albuterol Sulfate 2.5 mg 03/22/21 15:48 Albuterol Sulfate (0.083%) 2.5 Mg/3 Ml Vial.Neb INHALE ONCE PRN Wheezing Albuterol/Ipratropium 3 ml 03/21/21 04:50 Albuterol/Iprat 2.5/0.5mg 3 Ml Ampul.Neb INHALE RQ4H PRN Shortness of Breath/Wheezing Clonazepam 1.5 mg 03/21/21 21:00 03/22/21 21:39 Clonazepam 0.5 Mg Tablet PO 1.5 mg BEDTIME HERNESTO Administration Clozapine 200 mg 03/21/21 21:00 03/22/21 21:38 Clozapine 100 Mg Tablet PO 200 mg BEDTIME HERNESTO Administration Clozapine 50 mg 03/21/21 21:00 03/22/21 21:39 Clozapine 25 Mg Tablet PO 50 mg BEDTIME HERNESTO Administration Dronedarone 400 mg 03/21/21 09:00 03/22/21 21:40 Dronedarone Hcl 400 Mg Tablet PO 400 mg BID HERNESTO Administration Famotidine 20 mg 03/21/21 09:00 03/22/21 21:40 Famotidine/Pf 20 Mg/2 Ml Vial IVPUSH 20 mg BID HERNESTO Administration Fentanyl 50 mcg 03/22/21 15:48 Fentanyl Citrate/Pf 100 Mcg/2 Ml Vial IVPUSH Q5M PRN Pain, Severe (Pain Scale 7-10) Hydroxyzine HCl 50 mg 03/21/21 05:44 03/22/21 21:41 Hydroxyzine Hcl 50 Mg Tablet PO 50 mg BEDTIME PRN Administration Itching Lamotrigine 300 mg 03/21/21 21:00 03/22/21 21:40 Lamotrigine 100 Mg Tablet PO 300 mg BEDTIME HERNESTO Administration Levothyroxine Sodium 125 mcg 03/21/21 05:45 03/22/21 08:36 Levothyroxine Sodium 125 Mcg Tablet PO 125 mcg DAILY HERNESTO Administration Ondansetron HCl 4 mg 03/22/21 15:48 Ondansetron Hcl 4 Mg/2 Ml Vial IVPUSH ONCE PRN Nausea and Vomiting Prochlorperazine Maleate 5 mg 03/21/21 05:44 03/21/21 10:23 Prochlorperazine Maleate 5 Mg Tablet PO 5 mg TID PRN Administration for nausea/vomiting Senna 17.2 mg 03/21/21 04:52 Sennosides 8.6 Mg Tablet PO BEDTIME PRN Constipation Sevelamer Carbonate 800 mg 03/21/21 09:00 03/22/21 21:39 Sevelamer Carbonate Tablet 800 Mg Tablet PO 800 mg TID HERNESTO Administration Sodium Chloride 3 ml 03/21/21 08:00 03/23/21 09:04 0.9 % Sodium Chloride Flush 3 Ml Syringe IVFLUSH Not Given QSHIFT HERNESTO Tamoxifen Citrate 20 mg 03/21/21 09:00 03/22/21 08:34 Tamoxifen Citrate 10 Mg Tablet PO 20 mg DAILY HERNESTO Administration Tramadol HCl 25 mg 03/22/21 18:41 03/23/21 09:14 Tramadol Hcl 50 Mg Tablet PO 25 mg Q6H PRN Administration pain Labs CBC & Chem 7: 03/23/21 05:31 03/23/21 05:31 Labs: Laboratory Results - last 24 hr 03/23/21 03/23/21 05:31 05:31 MCV 98.5 H MCH 32.1 MCHC 32.6 RDW 14.0 Plt Count 247 MPV 9.4 Absolute Nucleated RBC 0.000 Nucleated RBC % (auto) 0.0 Anion Gap 24 H Estim Creat Clear Calc 7.8 Estimated GFR 8 Fasting Glucose 111 H D Calcium 8.5 D Assessment and Plan (1) Acute hyperkalemia: Status: Acute Assessment and Plan: 75F presented with hematuria hematuria, hydro s/p cysto /, 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
[2021-03-23] MEDS: Levothyroxine Sodium 125 MCG TABLET PO (14:02)
[2021-03-23] MEDS: Tamoxifen Citrate 10 MG TABLET 20 MG PO (14:02)
[2021-03-23] MEDS: Sevelamer Carbonate Tablet 800 MG TABLET PO ×2 (14:02→21:36)
[2021-03-23] MEDS: 0.9 % Sodium Chloride Flush 3 ML SYRINGE IVFLUSH ×2 (14:03→21:36)
[2021-03-23 15:34] VITALS: BP 88/58; PULSE 89; RESP 18; TEMP 36.5; O2SAT 95
[2021-03-23 19:03] VITALS: BP 88/54; PULSE 86; RESP 18; TEMP 36.6; O2SAT 93
[2021-03-23 19:30] VITALS: BP 100/60
--- NOTE | 2021-03-23 20:49 | P.PNNP_ITS ---
Subjective Subjective Date of Service: 03/23/21 Principal diagnosis: ESRD Interval history: seen and examined, events noted Physical Exam Vital Signs: Vital Signs: Last Vital Signs Temp 97.8 F 03/23/21 19:03 Pulse 86 03/23/21 19:03 Resp 18 03/23/21 19:03 BP 100/60 03/23/21 19:30 Pulse Ox 93 03/23/21 19:03 Body Mass Index 21.0 Const: General: cooperative, healthy appearing, comfortable and no acute distress Nutritional Appearance: thin Orientation/consciousness: patient oriented x3 HENMT: Head: Yes normal to inspection Face and sinus: Yes normal facial exam Mouth: moist mucous membranes Eyes: General: appearance normal, both eyes and all related structures Neck: Neck: Yes normal visual inspection, Yes full ROM and Yes trachea midline Chest: Other: Port in upper left chest Chest palpation & inspection: normal inspection of the chest Resp: Effort & Inspection: normal respiratory effort, able to speak in complete sentences and no respiratory distress Auscultation: clear to auscultation bilaterally Cardio: Rate: regular rate Rhythm: regular rhythm Heart sounds: normal S1 and S2 GI: Inspection: Yes normal to inspection Palpation (GI): Soft to palpation and Tenderness to palpation present (GI) (Slight tenderness RLQ) : General: Yes no CVA tenderness Back/Spine/Pelvis: Back: no CVA tenderness Cervical Spine: normal cervical lordosis Thoracic/Lumbar Spine: thoracic and lumbar spine normal to inspection Skin: General skin exam: no rashes or lesions noted Neuro: General: patient oriented x3, gait normal, tone normal and moves all extremities Extrem: General: Yes normal to inspection and Yes capillary refill normal Objective Data Labs CBC & Chem 7: 03/23/21 05:31 03/23/21 05:31 Labs: Laboratory Results - last 24 hr 03/23/21 03/23/21 05:31 05:31 WBC 12.4 H RBC 3.30 L Hgb 10.6 L Hct 32.5 L MCV 98.5 H MCH 32.1 MCHC 32.6 RDW 14.0 Plt Count 247 MPV 9.4 Absolute Nucleated RBC 0.000 Nucleated RBC % (auto) 0.0 Sodium 136 Potassium 5.0 D Chloride 101 Carbon Dioxide 16 L Anion Gap 24 H BUN 29 H D Creatinine 5.26 H* Estim Creat Clear Calc 7.8 Estimated GFR 8 Fasting Glucose 111 H D Calcium 8.5 D Procedures Date of Service Date of Service: 03/23/21 Assessment & Plan Assessment and plan (1) Acute hyperkalemia: Status: Acute Assessment and Plan: 1. ESRD: mwf schedule 2. GHematuria: w/u in progress; a.c. on hold 3. HyperK: resolved REC: cont HD mwf; w/u; d/c planning Time Spent With Patient Time: Total time spent is greater than 50% in coordination of care (as do cumented) at patient's floor/unit and/or counseling patient: Progress Note: Quality Stroke Does the patient have a stroke diagnosis?: No
[2021-03-23] MEDS: clonazePAM 0.5 MG TABLET 1.5 MG PO (21:35)
[2021-03-23] MEDS: lamoTRIgine 100 MG TABLET 300 MG PO (21:35)
[2021-03-23] MEDS: Dronedarone HCl 400 MG TABLET PO (21:36)
[2021-03-23] MEDS: Famotidine/PF 20 MG/2 ML VIAL IVPUSH (21:36)
[2021-03-23 23:40] VITALS: BP 85/58; PULSE 93; RESP 18; TEMP 36.5; O2SAT 92
[2021-03-24] VITALS (7 sets, daily range): BP systolic 84–131; BP diastolic 41–60; PULSE 84–93; RESP 15–18; TEMP 36.2–37.1; O2SAT 90–94
[2021-03-24 06:47] LABS: Hematocrit 25.6 % (37-47); Hemoglobin 8.3 g/dl (12.0-16.0); Mean Corpuscular HGB Conc 32.4 g/dl (31.0-35.0); Mean Corpuscular Hemoglobin 32.2 pg (27.0-33.0); Mean Corpuscular Volume 99.2 fL (80-98); Mean Platelet Volume 9.5 fL (9.4-12.3); Platelet Count 192 X10*3/uL (160-400); Red Blood Count 2.58 X10*6/uL (4.20-5.50); Red Cell Distribution Width 14.1 % (11.0-16.0); White Blood Count 9.6 X10*3/uL (4.8-10.8)
[2021-03-24 07:27] LABS: Anion Gap 17 (12-20); Blood Urea Nitrogen 20 mg/dL (9-16); Calcium 8.7 mg/dL (8.4-10.2); Carbon Dioxide 16 mmol/L (22-29); Chloride 105 mmol/L (96-108); Creatinine Clr Calc Pharmacy 10.8; Estimated Glomerular Filt Rate 12; Glucose Fasting 83 mg/dL (60-99); Potassium 3.9 mmol/L (3.3-5.1); Sodium 134 mmol/L (135-145)
[2021-03-24] MEDS: Albuterol Sulfate (0.083%) 2.5 MG/3 ML VIAL.NEB INHALE (07:53)
[2021-03-24] MEDS: Tamoxifen Citrate 10 MG TABLET 20 MG PO (09:16)
[2021-03-24] MEDS: traMADoL HCL 50 MG TABLET 25 MG PO ×2 (09:16→20:47)
[2021-03-24] MEDS: Sevelamer Carbonate Tablet 800 MG TABLET PO ×3 (09:16→20:48)
[2021-03-24] MEDS: Levothyroxine Sodium 125 MCG TABLET PO (09:16)
[2021-03-24] MEDS: Famotidine/PF 20 MG/2 ML VIAL IVPUSH ×2 (09:16→20:47)
[2021-03-24] MEDS: Dronedarone HCl 400 MG TABLET PO ×2 (09:16→20:48)
[2021-03-24] MEDS: 0.9 % Sodium Chloride Flush 3 ML SYRINGE IVFLUSH ×3 (09:17→20:49)
--- NOTE | 2021-03-24 10:20 | HO.PM.IMPN ---
Subjective Subjective Date of Service: 03/24/21 Interval History: feeling better today, more energetic, still with hematuria Constitutional Constitutional: Reports no additional constitutional complaints ENT Ears, Nose, Mouth, and Throat: Reports system reviewed and no additional complaints, except as documented Physical Exam Vital Signs: Vital Signs: Last Vital Signs Temp 97.9 F 03/24/21 08:00 Pulse 86 03/24/21 08:00 Resp 18 03/24/21 08:00 BP 84/51 L 03/24/21 08:00 Pulse Ox 94 03/24/21 08:00 Body Mass Index 21.0 General: a O X 3, no acute distress Resp:? CTA bilateral CVS: S1,S2,RRR GI: soft, non tender, non distended Neuro:? motor grossly intact Psych: appropriate affect Objective Data Current Medications Generic Name Dose Route Start Last Admin Trade Name Freq PRN Reason Stop Dose Admin Acetaminophen 650 mg 03/21/21 05:44 03/23/21 10:53 Acetaminophen 325 Mg Tablet PO 650 mg BID PRN Administration Pain (Scale Score 1-3) Albuterol Sulfate 2.5 mg 03/21/21 09:00 03/24/21 07:53 Albuterol Sulfate (0.083%) 2.5 Mg/3 Ml Vial.Neb INHALE 2.5 mg BID HERNESTO Administration Albuterol Sulfate 2.5 mg 03/22/21 15:48 Albuterol Sulfate (0.083%) 2.5 Mg/3 Ml Vial.Neb INHALE ONCE PRN Wheezing Albuterol/Ipratropium 3 ml 03/21/21 04:50 Albuterol/Iprat 2.5/0.5mg 3 Ml Ampul.Neb INHALE RQ4H PRN Shortness of Breath/Wheezing Clonazepam 1.5 mg 03/21/21 21:00 03/23/21 21:35 Clonazepam 0.5 Mg Tablet PO 1.5 mg BEDTIME HERNESTO Administration Clozapine 200 mg 03/21/21 21:00 03/23/21 21:42 Clozapine 100 Mg Tablet PO Not Given BEDTIME HERNESTO Clozapine 50 mg 03/21/21 21:00 03/23/21 21:42 Clozapine 25 Mg Tablet PO Not Given BEDTIME HERNESTO Dronedarone 400 mg 03/21/21 09:00 03/24/21 09:16 Dronedarone Hcl 400 Mg Tablet PO 400 mg BID HERNESTO Administration Famotidine 20 mg 03/21/21 09:00 03/24/21 09:16 Famotidine/Pf 20 Mg/2 Ml Vial IVPUSH 20 mg BID HERNESTO Administration Fentanyl 50 mcg 03/22/21 15:48 Fentanyl Citrate/Pf 100 Mcg/2 Ml Vial IVPUSH Q5M PRN Pain, Severe (Pain Scale 7-10) Hydroxyzine HCl 50 mg 03/21/21 05:44 03/22/21 21:41 Hydroxyzine Hcl 50 Mg Tablet PO 50 mg BEDTIME PRN Administration Itching Lamotrigine 300 mg 03/21/21 21:00 03/23/21 21:35 Lamotrigine 100 Mg Tablet PO 300 mg BEDTIME HERNESTO Administration Levothyroxine Sodium 125 mcg 03/21/21 05:45 03/24/21 09:16 Levothyroxine Sodium 125 Mcg Tablet PO 125 mcg DAILY HERNESTO Administration Ondansetron HCl 4 mg 03/22/21 15:48 Ondansetron Hcl 4 Mg/2 Ml Vial IVPUSH ONCE PRN Nausea and Vomiting Prochlorperazine Maleate 5 mg 03/21/21 05:44 03/21/21 10:23 Prochlorperazine Maleate 5 Mg Tablet PO 5 mg TID PRN Administration for nausea/vomiting Senna 17.2 mg 03/21/21 04:52 Sennosides 8.6 Mg Tablet PO BEDTIME PRN Constipation Sevelamer Carbonate 800 mg 03/21/21 09:00 03/24/21 09:16 Sevelamer Carbonate Tablet 800 Mg Tablet PO 800 mg TID HERNESTO Administration Sodium Chloride 3 ml 03/21/21 08:00 03/24/21 09:17 0.9 % Sodium Chloride Flush 3 Ml Syringe IVFLUSH 3 ml QSHIFT HERNESTO Administration Tamoxifen Citrate 20 mg 03/21/21 09:00 03/24/21 09:16 Tamoxifen Citrate 10 Mg Tablet PO 20 mg DAILY HERNESTO Administration Tramadol HCl 25 mg 03/22/21 18:41 03/24/21 09:16 Tramadol Hcl 50 Mg Tablet PO 25 mg Q6H PRN Administration pain Labs CBC & Chem 7: 03/24/21 05:51 03/24/21 05:51 Labs: Laboratory Results - last 24 hr 08/07/21 08/07/21 05:51 05:51 MCV 99.2 H MCH 32.2 MCHC 32.4 RDW 14.1 Plt Count 192 MPV 9.5 Absolute Nucleated RBC 0.000 Nucleated RBC % (auto) 0.0 Anion Gap 17 Estim Creat Clear Calc 10.8 Estimated GFR 12 Fasting Glucose 83 Calcium 8.7 Assessment and Plan (1) Acute hyperkalemia: Status: Acute Assessment and Plan: 75F presented with hematuria hematuria, hydro s/p cysto /, 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
[2021-03-24] MEDS: Acetaminophen 325 MG TABLET 650 MG PO (13:57)
--- NOTE | 2021-03-24 18:49 | P.PNNP_ITS ---
Subjective Subjective Date of Service: 03/24/21 Principal diagnosis: ESRD Interval history: feeling better today, more energetic, still with hematuria Physical Exam Vital Signs: Vital Signs: Last Vital Signs Temp 98 F 03/24/21 15:46 Pulse 86 03/24/21 15:46 Resp 15 03/24/21 15:46 BP 88/41 L 03/24/21 15:46 Pulse Ox 94 03/24/21 15:46 Body Mass Index 21.0 Const: General: cooperative, healthy appearing, comfortable and no acute distress Nutritional Appearance: thin Orientation/consciousness: patient oriented x3 HENMT: Head: Yes normal to inspection Face and sinus: Yes normal facial exam Mouth: moist mucous membranes Eyes: General: appearance normal, both eyes and all related structures Neck: Neck: Yes normal visual inspection, Yes full ROM and Yes trachea midline Chest: Other: Port in upper left chest Chest palpation & inspection: normal inspection of the chest Resp: Effort & Inspection: normal respiratory effort, able to speak in complete sentences and no respiratory distress Auscultation: clear to auscultation bilaterally Cardio: Rate: regular rate Rhythm: regular rhythm Heart sounds: normal S1 and S2 GI: Inspection: Yes normal to inspection Palpation (GI): Soft to palpation and Tenderness to palpation present (GI) (Slight tenderness RLQ) : General: Yes no CVA tenderness Back/Spine/Pelvis: Back: no CVA tenderness Cervical Spine: normal cervical lordosis Thoracic/Lumbar Spine: thoracic and lumbar spine normal to inspectio n Skin: General skin exam: no rashes or lesions noted Neuro: General: patient oriented x3, gait normal, tone normal and moves all extremities Extrem: General: Yes normal to inspection and Yes capillary refill normal Objective Data Labs CBC & Chem 7: 03/24/21 05:51 03/24/21 05:51 Labs: Laboratory Results - last 24 hr 03/24/21 03/24/21 05:51 05:51 WBC 9.6 RBC 2.58 L D Hgb 8.3 L D Hct 25.6 L D MCV 99.2 H MCH 32.2 MCHC 32.4 RDW 14.1 Plt Count 192 MPV 9.5 Absolute Nucleated RBC 0.000 Nucleated RBC % (auto) 0.0 Sodium 134 L Potassium 3.9 D Chloride 105 Carbon Dioxide 16 L Anion Gap 17 BUN 20 H Creatinine 3.81 H Estim Creat Clear Calc 10.8 Estimated GFR 12 Fasting Glucose 83 Calcium 8.7 Procedures Date of Service Date of Service: 03/24/21 Assessment & Plan Assessment and plan (1) Acute hyperkalemia: Status: Acute Assessment and Plan: 1. ESRD: mwf schedule 2. GHematuria: w/u in progress; and s/p cysto and results noted w Cancer; a.c. on hold 3. HyperK: resolved REC: cont HD mwf; ? next steps re: CA; d/c planning Time Spent With Patient Time: Total time spent is greater than 50% in coordination of care (as documented) at patient's floor/unit and/or counseling patient: Progress Note: Quality Stroke Does the patient have a stroke diagnosis?: No
[2021-03-24] MEDS: cloZAPine 100 MG TABLET 200 MG PO (20:48)
[2021-03-24] MEDS: lamoTRIgine 100 MG TABLET 300 MG PO (20:48)
[2021-03-24] MEDS: clonazePAM 0.5 MG TABLET 1.5 MG PO (20:48)
[2021-03-24] MEDS: cloZAPine 25 MG TABLET 50 MG PO (20:49)
[2021-03-25] VITALS: BP 117/54; PULSE 91; RESP 20; TEMP 36.6; O2SAT 95
[2021-03-25 04:00] VITALS: BP 107/73; PULSE 88; RESP 19; TEMP 37.1; O2SAT 94
[2021-03-25 06:47] LABS: Hematocrit 25.2 % (37-47); Hemoglobin 7.9 g/dl (12.0-16.0); Mean Corpuscular HGB Conc 31.3 g/dl (31.0-35.0); Mean Corpuscular Hemoglobin 31.2 pg (27.0-33.0); Mean Corpuscular Volume 99.6 fL (80-98); Mean Platelet Volume 9.5 fL (9.4-12.3); Platelet Count 206 X10*3/uL (160-400); Red Blood Count 2.53 X10*6/uL (4.20-5.50); White Blood Count 11.4 X10*3/uL (4.8-10.8)
[2021-03-25 07:23] LABS: Anion Gap 17 (12-20); Blood Urea Nitrogen 38 mg/dL (9-16); Calcium 9.1 mg/dL (8.4-10.2); Carbon Dioxide 16 mmol/L (22-29); Chloride 106 mmol/L (96-108); Creatinine Clr Calc Pharmacy 6.9; Estimated Glomerular Filt Rate 7; Glucose Fasting 87 mg/dL (60-99); Potassium 4.2 mmol/L (3.3-5.1); Sodium 135 mmol/L (135-145)
[2021-03-25 08:00] VITALS: BP 120/43; PULSE 90; RESP 20; TEMP 36.7
[2021-03-25 08:07] VITALS: PULSE 90; O2SAT 93
[2021-03-25] MEDS: Albuterol Sulfate (0.083%) 2.5 MG/3 ML VIAL.NEB INHALE (08:07)
[2021-03-25] MEDS: 0.9 % Sodium Chloride Flush 3 ML SYRINGE IVFLUSH (08:52)
[2021-03-25] MEDS: Sevelamer Carbonate Tablet 800 MG TABLET PO (08:52)
[2021-03-25] MEDS: Tamoxifen Citrate 10 MG TABLET 20 MG PO (08:52)
[2021-03-25] MEDS: Famotidine/PF 20 MG/2 ML VIAL IVPUSH (08:52)
[2021-03-25] MEDS: Dronedarone HCl 400 MG TABLET PO (08:52)
[2021-03-25] MEDS: Levothyroxine Sodium 125 MCG TABLET PO (08:52)
--- NOTE | 2021-03-25 10:26 | PM.DS ---
DS: Providers Provider Date of Service: 03/25/21 Date of admission: 03/21/21 04:52 Primary care physician: Gabriel Acosta MD Consults: 03/21/21 04:49 Consult to Nephrology Stat Consulting Provider: Héctor Marroquin Reason for consultation: ESRD; hyperkalemia Consult to Urology Routine Consulting Provider: Marshal Gould Reason for consultation: urothelial cancer; hydroureteronephrosis; hematuria; almeida placed; hx ESRD. DS: Diagnosis Discharge Diagnosis (1) Acute hyperkalemia: Status: Acute DS: Medications Discharge Medications Home Medications: Home Medications Medication Instructions Recorded Confirmed clonazepam 1 mg tablet 1.5 mg PO BEDTIME 05/21/20 03/21/21 lamotrigine 150 mg tablet 300 mg PO BEDTIME 05/21/20 03/21/21 acetaminophen 325 mg tablet 650 mg PO BID PRN 05/22/20 03/21/21 fluticasone 500 mcg-salmeterol 50 1 inh INHALATION BID 05/22/20 03/21/21 mcg/dose blistr powdr for inhalation (Wixela Inhub) sevelamer carbonate 800 mg tablet 1,600 mg PO TID 05/22/20 03/21/21 melatonin 10 mg capsule 20 mg PO BEDTIME PRN cap 09/06/20 03/21/21 clozapine 100 mg tablet 250 mg PO BEDTIME 01/04/21 03/21/21 hydroxyzine pamoate 50 mg capsule 50 mg PO BEDTIME PRN 03/21/21 03/21/21 Previous Rx's Medication Instructions Recorded dronedarone 400 mg tablet (Multaq) 400 mg PO BID 90 Days #180 tab 01/26/21 albuterol sulfate 2.5 mg INHALATION BID 30 Days #180 02/05/21 ml prochlorperazine maleate 5 mg 5 mg PO TID PRN #30 tab 03/09/21 tablet levothyroxine 125 mcg tablet 125 mcg PO QAM #90 tab 03/20/21 tamoxifen 20 mg tablet 20 mg PO DAILY #90 tab 03/20/21 DS: Summary Hospital Course Hospital Course: patient was admitted for hematuria, right hydronephrosis. her eliquis was held. she underwent cystocopy with bilateral stent placement, right ureteric neoplasm was seen, multiple small bladder ca recurrences seen as well and fulgirated. hematuria improved, was noted to have some acute blood loss anemia from the hematuria, but did not require transfusion, hgb now stable around 8. patient will be discharged home with ruth on hold and with almeida. she should follow up with , nephro, and oncology Time Spent with Patient Time attestation: Total time spent providing and/or coordinating discharge services: Discharge coordination time: Greater than 30 minutes Quality: Stroke Does the patient have a stroke diagnosis?: No Physical Exam Vital Signs: Vital Signs: Last Vital Signs Temp 98.0 F 03/25/21 08:00 Pulse 90 03/25/21 08:07 Resp 20 03/25/21 08:00 BP 120/43 L 03/25/21 08:00 Pulse Ox 94 03/25/21 04:00 Body Mass Index 21.0 General: AO X 3, no acute distress Resp: CTA bilateral CVS: S1,S2,RRR GI: soft, non tender, non distended Neuro: motor grossly intact Psych: appropriate affect DS: Data Data Completed and Pending Completed studies during hospitalization [Text1]: Procedures Performance of Urinary Filtration, Intermittent, Less than 6 Hours Per Day (05/21/20) Labs on day of discharge: Laboratory Results - last 24 hr 03/25/21 03/25/21 06:09 06:09 WBC 11.4 H RBC 2.53 L Hgb 7.9 L Hct 25.2 L MCV 99.6 H MCH 31.2 MCHC 31.3 RDW 14.0 Plt Count 206 MPV 9.5 Absolute Nucleated RBC 0.000 Nucleated RBC % (auto) 0.0 Sodium 135 Potassium 4.2 Chloride 106 Carbon Dioxide 16 L Anion Gap 17 BUN 38 H D Creatinine 6.01 H* Estim Creat Clear Calc 6.9 Estimated GFR 7 Fasting Glucose 87 Calcium 9.1 Discharge Plan Discharge Patient Disposition: Home Health Service Discharge Diagnosis: hematuria, right ureteric cancer Referrals: Marshal Gould MD [Physician] - 1 Week Héctor Marroquin MD [Physician] - 1 Week Gabriel Acosta MD [Primary Care Provider] - 1 Week (Your doctor's office should call you to schedule a follow up appointment.) Discharge Medications: Continued Multaq 400 mg tablet 400 mg PO BID 90 Days Qty: 180 RF: 1 prochlorperazine maleate 5 mg tablet 5 mg PO TID PRN (Reason: for nausea/vomiting) Qty: 30 RF: 0 levothyroxine 125 mcg tablet 125 mcg PO QAM Qty: 90 RF: 1 tamoxifen 20 mg Tablet 20 mg PO DAILY Qty: 90 RF: 4 lamotrigine 150 mg tablet 300 mg PO BEDTIME RF: 0 clonazepam 1 mg tablet 1.5 mg PO BEDTIME RF: 0 acetaminophen 325 mg Tablet 650 mg PO BID PRN (Reason: Pain (Scale Score 1-3)) RF: 0 fluticasone propion-salmeterol [Wixela Inhub] 500-50 mcg/dose Blister With Device 1 inh INHALATION BID RF: 0 sevelamer carbonate 800 mg Tablet 1,600 mg PO TID RF: 0 clozapine 100 mg tablet 250 mg PO BEDTIME RF: 0 hydroxyzine pamoate 50 mg capsule 50 mg PO BEDTIME PRN (Reason: Itching) RF: 0 melatonin 10 mg capsule 20 mg PO BEDTIME PRN (Reason: Insomnia) RF: 0 albuterol sulfate 2.5 mg /3 mL (0.083 %) solution for nebulization 2.5 mg inhalation BID 30 Days Qty: 180 RF: 11 Discontinued apixaban [Eliquis] 2.5 mg tablet 2.5 mg PO BID Qty: 180 RF: 1 Hold Instructions: Resume on 01/24/21. Discharge Orders: Discharge Order (Routine); Ordered 03/25/21 Ordered By: Aguila Ramos Diet: advance to usual diet Activity on Discharge: As tolerated Stand Alone Forms: Patient Portal Discharge page Care Plan Goals: recovery Health Concerns: right ureteric cancer, bladder cacner, hematuria Plan of Treatment: hold eliquis, follow up with and oncology, keep almeida for now Assessment: see above
--- NOTE | 2021-03-25 10:49 | MHC.CM.PN ---
order for home w/services. Patient on service w/[facility] already. Notified via allscripts patient was D/C to home today and requested resumption of services given D/C today. Per CM PN, to transport.
--- NOTE | 2021-03-25 11:19 | MHC.CM.PN ---
Nurse notified this CM of patient's new F/C (DOS 03/21/21): notified [facility] via allscripts of F/C and DOS as well.
[2021-03-25 11:41] VITALS: BP 133/55; PULSE 95; RESP 18; TEMP 36.5; O2SAT 98
== END 2021-03-25 12:45 | disposition home health service (06) | DRG 656 ==
LOC: HO.ED 03-21 04:40 → HO.EDOVER 03-21 05:05 → HO.IMC 03-21 08:27
PROVIDERS: Hospitalist; Physician Assistant; Urology; Admitting Provider Hospitalist; Emergency Provider Internal Medicine; PCP Internal Medicine; Visit Provider Internal Medicine
DX: C66.1 Malignant neoplasm of right ureter (principal); N18.6 End stage renal disease; N17.9 Acute kidney failure, unspecified; N13.1 Hydronephrosis with ureteral stricture, not elsewhere classified; D62 Acute posthemorrhagic anemia; C67.9 Malignant neoplasm of bladder, unspecified; E03.9 Hypothyroidism, unspecified; R31.0 Gross hematuria; E87.5 Hyperkalemia; C50.911 Malignant neoplasm of unspecified site of right female breast; Z20.822 Contact with and (suspected) exposure to COVID-19; Z87.891 Personal history of nicotine dependence; Z99.2 Dependence on renal dialysis; Z86.711 Personal history of pulmonary embolism; Z88.0 Allergy status to penicillin; Z88.6 Allergy status to analgesic agent; Z79.52 Long term (current) use of systemic steroids; Z79.890 Hormone replacement therapy; Z79.899 Other long term (current) drug therapy
CPT/HCPCS: 36415; 74176; 80048; 80053; 81001; 81003; 85025; 85027; 85610; 85730; 87635; 90999; 93005; 94640; 96365; 96366; 96375; 99285; C1758; C1769; C2617; J0610; J0690; J1100; J2250; J2370; J2405; J3010; Q9967

== ENCOUNTER 2021-03-26 00:17 | Observation (INO) | payer MEDICARE, BC, SELFPAY ==
--- NOTE | ~2021-03-26 | CT_ITS ---
EXAMINATION: CT ABDOMEN AND PELVIS WITHOUT CONTRAST CLINICAL INFORMATION: Lower abdominal pain. Bloody urine. History of bladder cancer, status post TURBT in June 2020 COMPARISON: Intraoperative fluoroscopy images from the patient's bilateral nephroureteral stent placement 03/22/2021 07/27/2020 and priors dating back to 2012 TECHNIQUE: Multidetector volumetric imaging was performed from the superior aspect of the liver through the pubic symphysis. Sagittal and coronal reformatted images were obtained on the technologist's workstation. This CT examination was performed using dose optimization techniques as appropriate, variously including the following: *Automated exposure control *Adjustment of mA and/or kV according to patient size (this includes techniques or standardized protocols for targeted exams where dose is matched to indication/reason for exam; i.e. extremities or head) *Use of iterative reconstruction technique DLP: c 540 mGy-cm FINDINGS: LUNG BASES: There are patchy opacities within the lingula and anterior segment of the left lower lobe, which are stable from the prior PET/CT from January 2021, previously shown to be FDG avid. Additional groundglass opacities are unchanged. Severe emphysema. Coronary calcifications. LIVER, GALLBLADDER, AND BILIARY TREE: The liver is normal in size, shape, and attenuation. No focal hepatic lesion or biliary ductal dilatation is present. Cholecystectomy. PANCREAS: Unremarkable. SPLEEN: Unremarkable. ADRENAL GLANDS: Stable 2.3 x 1.8 cm heterogeneous attenuating left adrenal nodule. No significant change since 2012.. Right adrenal gland is normal. KIDNEYS AND URETERS: Innumerable cysts, both simple and hyperdense essentially replace much of the renal parenchyma thinning of the intervening renal parenchyma. There are scattered punctate cortical calcifications, likely a few punctate nonobstructive intrarenal calculi as well. Subcentimeter hyperdense cyst within the lower pole left kidney. New bilateral nephroureteral stents have been placed. Previously seen moderate right hydronephrosis has resolved. New subcapsular hematoma present along the posterior right kidney measuring up to 3.9 cm in thickness, with associated perinephric fat stranding. There is nondependent gas within the right renal collecting system, as well as new right perinephric fat stranding. There may be intraparenchymal hemorrhage within the lower pole of the right kidney as well. BLADDER: Contains a Newton catheter. Nondependent gas is present. GASTROINTESTINAL TRACT: Right hemicolectomy. Ileocolonic anastomosis within the midabdomen is intact. No intestinal obstruction or inflammation. ABDOMINAL WALL: No significant hernia is appreciated. LYMPH NODES: Normal. VASCULAR: Stable infrarenal abdominal aortic ectasia without aneurysmal dilatation. PELVIC VISCERA: Uterus and adnexa unremarkable. New presacral fat stranding, nonspecific. OSSEOUS STRUCTURES: No acute or suspicious osseous abnormalities. Severe arthrosis contact. Degenerative changes present throughout the spine, worst from L3 to S1 with associated levoconvex lumbar scoliosis. CT/CT abdomen pelvis wo con IMPRESSION: * Interval resolution of previously seen moderate right hydronephrosis status post placement of bilateral nephroureteral stents. Slightly decreased prominence of the soft tissue within the distal right ureter. * New subcapsular hematoma along the posterior right kidney measuring up to 3.9 cm in thickness. Suspect intraparenchymal hemorrhage within the lower pole of the right kidney as well. Associated perinephric stranding is present. * Nondependent gas present within the right renal collecting system, still within normal limits in the early postoperative period. * Slightly decreased size of the soft tissue density within the distal right ureter. * Right hemicolectomy with intact enterocolic anastomosis within the midabdomen. * Long-term stability of a heterogeneous 2.6 cm left adrenal nodule. * Bilateral pulmonary parenchymal airspace opacities, with opacities in the left lower lobe and lingula similar to the prior CT, having previously shown FDG avidity, nonspecific. * Cholecystectomy.
[2021-03-26 01:26] VITALS: BP 120/59; PULSE 93; RESP 17; TEMP 36.5; O2SAT 95; BMI 24.0
--- NOTE | 2021-03-26 02:16 | ED.ABDPAIN ---
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 , notes almeida draining without issue MD elicited complaint: abdominal pain Pertinent past history: other (bladder cancer st/p stent placement and cystoscopy) Onset (ago): hour(s) (last few hours) Pain Consistency: constant Location: suprapubic Severity: moderate Quality: cramping Radiation: none Migration to: no migration Exacerbating factors: nothing Relieving factors: nothing Context: recent surgery/procedure Associated symptoms: denies other symptoms Treatments prior to arrival: other (tried tramadol without relief) Related Data Home Medications Medication Instructions Recorded Confirmed clonazepam 1 mg tablet 1.5 mg PO BEDTIME 05/21/20 03/21/21 lamotrigine 150 mg tablet 300 mg PO BEDTIME 05/21/20 03/21/21 acetaminophen 325 mg tablet 650 mg PO BID PRN 05/22/20 03/21/21 fluticasone 500 mcg-salmeterol 50 1 inh INHALATION BID 05/22/20 03/21/21 mcg/dose blistr powdr for inhalation (Wixela Inhub) sevelamer carbonate 800 mg tablet 1,600 mg PO TID 05/22/20 03/21/21 melatonin 10 mg capsule 20 mg PO BEDTIME PRN cap 09/06/20 03/21/21 clozapine 100 mg tablet 250 mg PO BEDTIME 01/04/21 03/21/21 hydroxyzine pamoate 50 mg capsule 50 mg PO BEDTIME PRN 03/21/21 03/21/21 Previous Rx's Medication Instructions Recorded dronedarone 400 mg tablet (Multaq) 400 mg PO BID 90 Days #180 tab 01/26/21 albuterol sulfate 2.5 mg INHALATION BID 30 Days #180 02/05/21 ml prochlorperazine maleate 5 mg 5 mg PO TID PRN #30 tab 03/09/21 tablet levothyroxine 125 mcg tablet 125 mcg PO QAM #90 tab 03/20/21 tamoxifen 20 mg tablet 20 mg PO DAILY #90 tab 03/20/21 Allergies Allergy/AdvReac Type Severity Reaction Status Date / Time adhesive tape Allergy Intermediate Blister Verified 03/15/21 16:05 aspirin Allergy Intermediate RASH Verified 03/15/21 16:05 benztropine Allergy Intermediate RASH Verified 03/15/21 16:05 NSAIDS (Non-Steroidal Allergy Intermediate RASH Verified 03/15/21 16:05 Anti-Inflamma ziprasidone Allergy Unknown UNKNOWN Verified 03/15/21 16:05 doxycycline AdvReac Vomiting Verified 03/15/21 16:05 Review of Systems Review of Systems Constitutional : No Weight loss, No Fever, No Chills ENT/Mouth : No sore throat, No Rhinorrhea Eyes: No Swelling, No Redness Cardiovascular : No Chest Pain, No SOB, NoEdema Respiratory : No Cough, No Sputum, No Wheezing Gastrointestinal : no Nausea, no Vomiting, no Diarrhea, positive abdominal Pain, No Hematochezia, No Melena Genitourinary : No Dysuria, No Urinary Frequency, pos Hematuria, No Urgency Musculoskeletal : No joint pain, No Myalgias, No Joint Swelling Skin : No Skin Lesions, No rash Neuro : No Weakness, No Numbness, No Dizziness, No Headache Psych : No Anxiety/Panic, No Depression Heme/Lymph: No Bruising, No Lymphadenopathy Endocrine : No Polyuria, No Polydipsia All other systems reviewed and are negative. Physical Exam Vital Signs: Vital Signs: Last Vital Signs Temp 97.7 F 03/26/21 01:26 Pulse 93 03/26/21 01:26 Resp 17 03/26/21 01:26 BP 120/59 L 03/26/21 01:26 Pulse Ox 95 03/26/21 01:26 Body Mass Index 24.0 Appearance: Alert. Oriented X3. No acute distress. Eyes: Pupils equal, round and reactive to light. ENT: Pharynx normal. Neck: Normal inspection. Neck supple. CVS: Normal heart rate and rhythm. Pulses normal. Respiratory: No respiratory distress. Breath sounds normal. Abdomen: Soft and mild suprapubic ttp no rebound or guarding. : no clots seen draining urine - hematuria noted Skin: Skin warm and dry. pale skin color. Normal skin turgor. Extremities: No lower extremity edema. Neuro: Oriented X 3. No motor deficit. No sensory deficit. Course Course Course Narrative: pain from possible hematoma, VS stable, will need admission will discuss with Dr. Gould hemoglobin stable from last visit increased from 7.5 to 8.[address] 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 Bladder scan negative she is not retaining at this time, pain could be from stents Lab Data Result diagrams: 03/26/21 05:19 03/26/21 05:19 Labs: Lab Results 03/26/21 03/26/21 Range/Units 05:19 05:19 WBC 13.1 H (4.8-10.8) X10*3/uL RBC 2.56 L (4.20-5.50) X10*6/uL Hgb 8.5 L (12.0-16.0) g/dl Hct 25.3 L (37-47) % MCV 98.8 H (80-98) fL MCH 33.2 H (27.0-33.0) pg MCHC 33.6 (31.0-35.0) g/dl RDW 14.3 (11.0-16.0) % Plt Count 239 (160-400) X10*3/uL MPV 9.5 (9.4-12.3) fL Immature Gran % (Auto) 0.5 H (0.0-0.4) % Neut % (Auto) 76.0 H (45-73) % Lymph % (Auto) 7.9 L (20-40) % [place] % (Auto) 12.1 H (2-11) % Eos % (Auto) 3.4 (0-4) % Baso % (Auto) 0.1 (0-2) % Lymph # (Auto) 1.0 L (1.2-4.9) X10*3/uL [place] # (Auto) 1.6 H (0.1-1.2) X10*3/uL Eos # (Auto) 0.4 (0.0-0.4) X10*3/uL Baso # (Auto) 0.0 (0.0-0.2) X10*3/uL Abs Immat Gran (auto) 0.07 H (0.00-0.03) X10*3/uL Absolute Neuts (auto) 10.0 H (2.0-8.3) X10*3/uL Absolute Nucleated RBC 0.000 (0.0-0.012) X10*3/uL Nucleated RBC % (auto) 0.0 (0.0-0.2) /100WBC Sodium 138 (135-145) mmol/L Potassium 5.4 H D (3.3-5.1) mmol/L Chloride 108 (96-108) mmol/L Carbon Dioxide 15 L (22-29) mmol/L Anion Gap 20 (12-20) BUN 60 H D (9-16) mg/dL Creatinine 7.96 H* (0.5-1.4) mg/dL Estim Creat Clear Calc 5.9 Estimated GFR 5 Random Glucose 95 (60-115) mg/dL Calcium 9.8 D (8.4-10.2) mg/dL Discharge Plan Discharge Clinical Impression: ESRD (end stage renal disease) Abdominal pain Qualifiers: Abdominal location: lower abdomen, unspecified Qualified Code(s): R10.30 - Lower abdominal pain, unspecified Hematoma of kidney Qualifiers: Encounter type: initial encounter Laterality: right Qualified Code(s): S37.011A - Minor contusion of right kidney, initial encounter Patient Disposition: Admitted As Inpatient [facility] Past Medical History Attestation statement: The following information was validated with the patient. Medical History Abdominal pain Arrhythmia Arthritis AV fistula Bipolar 1 disorder Bowel obstruction Breast cancer Bronchopneumonia Cancer Chronic nausea COPD (chronic obstructive pulmonary disease) COVID-19 vaccine administered Dialysis patient Diarrhea Dysphagia History of 2019 novel coronavirus disease (COVID-19) Hx of hypotension Hx of radiation therapy Hypothyroidism Invasive ductal carcinoma of breast Lab test negative for COVID-19 virus Lab test positive for detection of COVID-19 virus MSSA bacteremia Paroxysmal A-fib Poor appetite Positive FIT (fecal immunochemical test) Pulmonary emboli Renal failure SBO (small bowel obstruction) Thyroid disease Vomiting Wears dentures Surgical History History of abdominal surgery History of appendectomy History of back surgery History of bladder surgery (~06/2020) History of cholecystectomy History of esophagogastroduodenoscopy (EGD) History of hand surgery History of lumpectomy of left breast History of lumpectomy of right breast History of tonsillectomy Hx of colonoscopy Hx of foot surgery Family History Family History Father Dementia Mother Bipolar 1 disorder Brother Heart attack Other Mental health disorder Social History Social History Household Members: Spouse Housing: House Are you a primary coronary care unit nurse to a significant other at home: No Do you presently have visiting nurse or other home services: Yes (Nurse visit) Alcohol intake: never Patient Tobacco Use Status: Former Tobacco user Quit Date: 2015 Tobacco use type: Cigarette Cigarette Packs Per Day: 1.5 Cigarettes Per Day: 30.0 Years Smoked: 50 e-Cigarette/Vaping Use: Never Used Second Hand Smoke Exposure: No Advance Directives: No Advance Directives Date on File: 01/23/21 service: No Current occupational status: disabled
[2021-03-26 05:26] LABS: Basophils Percent Auto 0.1 % (0-2); Eosinophils Absolute Auto 0.4 X10*3/uL (0.0-0.4); Eosinophils Percent Auto 3.4 % (0-4); Hematocrit 25.3 % (37-47); Hemoglobin 8.5 g/dl (12.0-16.0); Imm Gran Abs Auto 0.07 X10*3/uL (0.00-0.03); Imm Gran Pct Auto 0.5 % (0.0-0.4); Lymphocytes Percent Auto 7.9 % (20-40); Mean Corpuscular HGB Conc 33.6 g/dl (31.0-35.0); Mean Corpuscular Hemoglobin 33.2 pg (27.0-33.0); Mean Corpuscular Volume 98.8 fL (80-98); Mean Platelet Volume 9.5 fL (9.4-12.3); Monocytes Absolute Auto 1.6 X10*3/uL (0.1-1.2); Monocytes Percent Auto 12.1 % (2-11); Platelet Count 239 X10*3/uL (160-400); Red Blood Count 2.56 X10*6/uL (4.20-5.50); Red Cell Distribution Width 14.3 % (11.0-16.0); SCAN SMEAR FLAG 1; White Blood Count 13.1 X10*3/uL (4.8-10.8)
[2021-03-26 05:27] LABS: MANUAL DIFF FLAG NO
[2021-03-26 05:56] LABS: Anion Gap 20 (12-20); Blood Urea Nitrogen 60 mg/dL (9-16); Calcium 9.8 mg/dL (8.4-10.2); Carbon Dioxide 15 mmol/L (22-29); Chloride 108 mmol/L (96-108); Creatinine Clr Calc Pharmacy 5.9; Estimated Glomerular Filt Rate 5; Glucose Random 95 mg/dL (60-115); Potassium 5.4 mmol/L (3.3-5.1); Sodium 138 mmol/L (135-145)
[2021-03-26 06:05] LABS: Influenza A PCR NEGATIVE (Negative); Influenza B PCR NEGATIVE (Negative); Resp Syncy Virus RNA Qual PCR NEGATIVE (Negative); SARS COV2 PCR INHOUSE NEGATIVE (Negative)
--- NOTE | 2021-03-26 06:40 | PC.NURSE ---
PT HAS DUVALL DRAINING DK COLORED URINE INTO DUVALL BAG. PT BEING ADMITTED AT THIS TIME. PT AWAITING FOR ROOM ASSIGNMENT. WILL CONTINUE TO MONITOR PT.
--- NOTE | 2021-03-26 07:51 | PM.CNNEP ---
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 Bladder scan negative she is not retaining at this time, pain could be from stents Review of Systems Review of Systems Constitutional : No Weight loss, No Fever, No Chills ENT/Mouth : No sore throat, No Rhinorrhea Eyes: No Swelling, No Redness Cardiovascular : No Chest Pain, No SOB, NoEdema Respiratory : No Cough, No Sputum, No Wheezing Gastrointestinal : no Nausea, no Vomiting, no Diarrhea, positive abdominal Pain, No Hematochezia, No Melena Genitourinary : No Dysuria, No Urinary Frequency, pos Hematuria, No Urgency Musculoskeletal : No joint pain, No Myalgias, No Joint Swelling Skin : No Skin Lesions, No rash Neuro : No Weakness, No Numbness, No Dizziness, No Headache Psych : No Anxiety/Panic, No Depression Heme/Lymph: No Bruising, No Lymphadenopathy Endocrine : No Polyuria, No Polydipsia All other systems reviewed and are negative. [facility] Past Medical History Medical History Abdominal pain Arrhythmia Arthritis AV fistula Bipolar 1 disorder Bowel obstruction Breast cancer Bronchopneumonia Cancer Chronic nausea COPD (chronic obstructive pulmonary disease) COVID-19 vaccine administered Dialysis patient Diarrhea Dysphagia History of 2019 novel coronavirus disease (COVID-19) Hx of hypotension Hx of radiation therapy Hypothyroidism Invasive ductal carcinoma of breast Lab test negative for COVID-19 virus Lab test positive for detection of COVID-19 virus MSSA bacteremia Paroxysmal A-fib Poor appetite Positive FIT (fecal immunochemical test) Pulmonary emboli Renal failure SBO (small bowel obstruction) Thyroid disease Vomiting Wears dentures Family History Family History Father Dementia Mother Bipolar 1 disorder Brother Heart attack Other Mental health disorder Surgical History Surgical History History of abdominal surgery History of appendectomy History of back surgery History of bladder surgery (~06/2020) History of cholecystectomy History of esophagogastroduodenoscopy (EGD) History of hand surgery History of lumpectomy of left breast History of lumpectomy of right breast History of tonsillectomy Hx of colonoscopy Hx of foot surgery Social History Social History Household Members: Spouse Housing: House Are you a primary child care associate teacher to a significant other at home: No Do you presently have visiting nurse or other home services: Yes (Nurse visit) Alcohol intake: never Patient Tobacco Use Status: Former Tobacco user Quit Date: 2015 Tobacco use type: Cigarette Cigarette Packs Per Day: 1.5 Cigarettes Per Day: 30.0 Years Smoked: 50 e-Cigarette/Vaping Use: Never Used Second Hand Smoke Exposure: No Advance Directives: No Advance Directives Date on File: 01/23/21 service: No Current occupational status: disabled Meds Allergies Allergy/AdvReac Type Severity Reaction Status Date / Time adhesive tape Allergy Intermediate Blister Verified 03/15/21 16:05 aspirin Allergy Intermediate RASH Verified 03/15/21 16:05 benztropine Allergy Intermediate RASH Verified 03/15/21 16:05 NSAIDS (Non-Steroidal Allergy Intermediate RASH Verified 03/15/21 16:05 Anti-Inflamma ziprasidone Allergy Unknown UNKNOWN Verified 03/15/21 16:05 doxycycline AdvReac Vomiting Verified 03/15/21 16:05 Active Medications: Current Medications Generic Name Dose Route Start Last Admin Trade Name Barbara PRN Reason Stop Dose Admin Pharmacy Consult 1 each 03/26/21 03:48 Consult Rx Perform Med Rec MISCELLANE ONCE PRN Consult order Home Medications Medication Instructions Recorded Confirmed Last Taken Type clonazepam 1 mg tablet 1.5 mg PO BEDTIME 05/21/20 03/21/21 03/20/21 03:00 History lamotrigine 150 mg tablet 300 mg PO BEDTIME 05/21/20 03/21/21 03/20/21 03:00 History acetaminophen 325 mg tablet 650 mg PO BID PRN 05/22/20 03/21/21 03/19/21 History fluticasone 500 mcg-salmeterol 50 1 inh INHALATION BID 05/22/20 03/21/21 Unknown History mcg/dose blistr powdr for inhalation (Wixela Inhub) sevelamer carbonate 800 mg tablet 1,600 mg PO TID 05/22/20 03/21/21 03/20/21 17:00 History melatonin 10 mg capsule 20 mg PO BEDTIME PRN cap 09/06/20 03/21/21 03/20/21 History clozapine 100 mg tablet 250 mg PO BEDTIME 01/04/21 03/21/21 03/20/21 03:00 History hydroxyzine pamoate 50 mg capsule 50 mg PO BEDTIME PRN 03/21/21 03/21/21 03/20/21 03:00 History Physical Exam Vital Signs: Last Vital Signs Temp 97.7 F 03/26/21 01:26 Pulse 93 03/26/21 01:26 Resp 17 03/26/21 01:26 BP 120/59 L 03/26/21 01:26 Pulse Ox 95 03/26/21 01:26 Body Mass Index 24.0 Results Lab Results Result Diagrams: 03/26/21 05:19 03/26/21 05:19 Lab results: Chemistry 03/26/21 05:19 Sodium 138 Potassium 5.4 H D Carbon Dioxide 15 L BUN 60 H D Creatinine 7.96 H* Calcium 9.8 D Hematology 03/26/21 05:19 WBC 13.1 H Hgb 8.5 L Plt Count 239 Assessment and Plan (1) Abdominal pain: Qualifiers: Abdominal location: lower abdomen, unspecified Qualified Code(s): R10.30 - Lower abdominal pain, unspecified Status: Acute (2) Hematoma of kidney: Qualifiers: Encounter type: initial encounter Laterality: right Qualified Code(s): S37.011A - Minor contusion of right kidney, initial encounter Status: Acute (3) ESRD (end stage renal disease): Status: Chronic (4) Gross hematuria: Status: Acute (5) Bladder cancer: Status: Acute (6) COPD (chronic obstructive pulmonary disease): Qualifiers: COPD type: chronic bronchitis Chronic bronchitis type: mixed simple and mucopurulent Qualified Code(s): J41.8 - Mixed simple and mucopurulent chronic bronchitis Status: Acute dialysis today ordered Procedures Date of Service Date of Service: 03/26/21
--- NOTE | 2021-03-26 08:46 | PHA.MEDREC ---
Pharmacy Consult ? Medication Reconciliation Pharmacy has completed the medication reconciliation. PT stated she did not know her meds. Since she was just discharged yesterday (03/25/21), the med rec was done using the discharge summary.
[2021-03-26 09:26] VITALS: BP 133/47; PULSE 93; RESP 16; TEMP 37.3; O2SAT 97
--- NOTE | 2021-03-26 10:17 | PM.IMHP ---
History of Present Illness Date of Service: 03/26/21 Chief Complaint: abd pain, hematuria 75F discharged from [facility] day ptp after admission for hematuria and right ureteric cancer, s/p stent placement. hematuria had improved, patient was discharged home. now returning with suprapubic cramping pain and worsening hematuria. in ED CT showed New subcapsular hematoma along the posterior right kidney measuring up to 3.9 cm in thickness. hgb stable. Review of Systems Review of Systems: Constitutional: Denies fever, denies Chills Eyes: denies blurry vision ENT: denies sore throat CVS: denies chest pain Respiratory: Denies dyspnea GI: no abdominal pain : denies dysuria MSK: denies neck pain Skin: denies rash Neuro: denies specific motor weakness Psych: denies suicidal ideation Endocrine: denies heat/cold intolerance Hematologic: denies easy bleeding Allergy: denies hives [facility] Medical History Abdominal pain Arrhythmia Arthritis AV fistula Bipolar 1 disorder Bowel obstruction Breast cancer Bronchopneumonia Cancer Chronic nausea COPD (chronic obstructive pulmonary disease) COVID-19 vaccine administered Dialysis patient Diarrhea Dysphagia History of 2019 novel coronavirus disease (COVID-19) Hx of hypotension Hx of radiation therapy Hypothyroidism Invasive ductal carcinoma of breast Lab test negative for COVID-19 virus Lab test positive for detection of COVID-19 virus MSSA bacteremia Paroxysmal A-fib Poor appetite Positive FIT (fecal immunochemical test) Pulmonary emboli Renal failure SBO (small bowel obstruction) Thyroid disease Vomiting Wears dentures Family History Father Dementia Mother Bipolar 1 disorder Brother Heart attack Other Mental health disorder Surgical History History of abdominal surgery History of appendectomy History of back surgery History of bladder surgery (~06/2020) History of cholecystectomy History of esophagogastroduodenoscopy (EGD) History of hand surgery History of lumpectomy of left breast History of lumpectomy of right breast History of tonsillectomy Hx of colonoscopy Hx of foot surgery Social History Household Members: Spouse Housing: House Are you a primary hourly caregiver to a significant other at home: No Do you presently have visiting nurse or other home services: Yes (Nurse visit) Alcohol intake: never Patient Tobacco Use Status: Former Tobacco user Quit Date: 2015 Tobacco use type: Cigarette Cigarette Packs Per Day: 1.5 Cigarettes Per Day: 30.0 Years Smoked: 50 e-Cigarette/Vaping Use: Never Used Second Hand Smoke Exposure: No Use of substances other than those prescribed or required for medical reasons: No Advance Directives: No Advance Directives Date on File: 01/23/21 service: No Current occupational status: disabled Meds Allergies Allergy/AdvReac Type Severity Reaction Status Date / Time adhesive tape Allergy Intermediate Blister Verified 03/15/21 16:05 aspirin Allergy Intermediate RASH Verified 03/15/21 16:05 benztropine Allergy Intermediate RASH Verified 03/15/21 16:05 NSAIDS (Non-Steroidal Allergy Intermediate RASH Verified 03/15/21 16:05 Anti-Inflamma ziprasidone Allergy Unknown UNKNOWN Verified 03/15/21 16:05 doxycycline AdvReac Vomiting Verified 03/15/21 16:05 Active Medications: Current Medications Generic Name Dose Route Start Last Admin Trade Name Freq PRN Reason Stop Dose Admin Acetaminophen 650 mg 03/26/21 10:10 Acetaminophen 325 Mg Tablet PO BID PRN Pain (Scale Score 1-3) Albuterol Sulfate 2.5 mg 03/26/21 21:00 Albuterol Sulfate (0.083%) 2.5 Mg/3 Ml Vial.Neb INHALE BID HERNESTO Clonazepam 1.5 mg 03/26/21 21:00 Clonazepam 0.5 Mg Tablet PO BEDTIME HERNESTO Clozapine 250 mg 03/26/21 21:00 Clozapine 25 Mg Tablet PO BEDTIME HERNESTO Dronedarone 400 mg 03/26/21 21:00 Dronedarone Hcl 400 Mg Tablet PO BID HERNESTO Hydroxyzine HCl 50 mg 03/26/21 10:10 Hydroxyzine Hcl 50 Mg Tablet PO BEDTIME PRN Itching Lamotrigine 300 mg 03/26/21 21:00 Lamotrigine 100 Mg Tablet PO BEDTIME HERNESTO Levothyroxine Sodium 125 mcg 03/26/21 10:15 Levothyroxine Sodium 125 Mcg Tablet PO QAM HERNESTO Non-Formulary Medication 20 mg 03/26/21 10:10 Melatonin PO BEDTIME PRN Insomnia Non-Formulary Medication 1 inhalation 03/26/21 21:00 Fluticasone Propion-Salmeterol [Wixela Inhub] INHALE BID [facility] Pharmacy Consult 1 each 03/26/21 03:48 Consult Rx Perform Med Rec MISCELLANE ONCE PRN Consult order Prochlorperazine Maleate 5 mg 03/26/21 10:10 Prochlorperazine Maleate 5 Mg Tablet PO TID PRN for nausea/vomiting Sevelamer Carbonate 1,600 mg 03/26/21 12:00 Sevelamer Carbonate Tablet 800 Mg Tablet PO TIDWM [facility] Tamoxifen Citrate 20 mg 03/27/21 09:00 Tamoxifen Citrate 10 Mg Tablet PO DAILY [facility] Home Medications Medication Instructions Recorded Confirmed Last Taken Type clonazepam 1 mg tablet 1.5 mg PO BEDTIME 05/21/20 03/26/21 03/24/21 History lamotrigine 150 mg tablet 300 mg PO BEDTIME 05/21/20 03/26/21 03/24/21 History acetaminophen 325 mg tablet 650 mg PO BID PRN 05/22/20 03/26/21 03/19/21 History fluticasone 500 mcg-salmeterol 50 1 inh INHALATION BID 05/22/20 03/26/21 03/25/21 History mcg/dose blistr powdr for inhalation (Wixela Inhub) sevelamer carbonate 800 mg tablet 1,600 mg PO TIDWM 05/22/20 03/26/21 03/25/21 History melatonin 10 mg capsule 20 mg PO BEDTIME PRN cap 09/06/20 03/26/21 03/20/21 History clozapine 100 mg tablet 250 mg PO BEDTIME 01/04/21 03/26/21 03/24/21 History hydroxyzine pamoate 50 mg capsule 50 mg PO BEDTIME PRN 03/21/21 03/26/21 03/20/21 03:00 History Physical Exam Vital Signs and Narrative: Vital Signs: Last Vital Signs Temp 99.2 F 03/26/21 09:26 Pulse 93 03/26/21 09:26 Resp 16 03/26/21 09:26 BP 133/47 L 03/26/21 09:26 Pulse Ox 97 03/26/21 09:26 Body Mass Index 24.0 General: no acute distress, overall ill appearing HEENT: atraumatic Neck: normal to visual inspection CVS: S1, S2, RRR Resp: CTA bilateral Chest: non tender GI: soft, non tender, non distended : no CVA tenderness, hematuria Skin: no rashes Extremities: no edema Neuro: Oriented X2, grossly intact Psych: cooperative Results Labs CBC and Chem 7: 03/26/21 05:19 03/26/21 05:19 Labs: Laboratory Results - last 24 hr 03/26/21 03/26/21 03/26/21 05:08 05:19 05:19 MCV 98.8 H MCH 33.2 H MCHC 33.6 RDW 14.3 Plt Count 239 MPV 9.5 Immature Gran % (Auto) 0.5 H Neut % (Auto) 76.0 H Lymph % (Auto) 7.9 L Yell % (Auto) 12.1 H Eos % (Auto) 3.4 Baso % (Auto) 0.1 Lymph # (Auto) 1.0 L Yell # (Auto) 1.6 H Eos # (Auto) 0.4 Baso # (Auto) 0.0 Abs Immat Gran (auto) 0.07 H Absolute Neuts (auto) 10.0 H Absolute Nucleated RBC 0.000 Nucleated RBC % (auto) 0.0 Anion Gap 20 Estim Creat Clear Calc 5.9 Estimated GFR 5 Random Glucose 95 Calcium 9.8 D Coronavirus (PCR) NEGATIVE Influenza Type A (PCR) NEGATIVE Influenza Type B (PCR) NEGATIVE RSV RNA Qual (PCR) NEGATIVE Imaging Radiologist's Impressions: Impressions Abdomen/Pelvis CT 03/26/21 02:33 IMPRESSION: * Interval resolution of previously seen moderate right hydronephrosis status post placement of bilateral nephroureteral stents. Slightly decreased prominence of the soft tissue within the distal right ureter. * New subcapsular hematoma along the posterior right kidney measuring up to 3.9 cm in thickness. Suspect intraparenchymal hemorrhage within the lower pole of the right kidney as well. Associated perinephric stranding is present. * Nondependent gas present within the right renal collecting system, still within normal limits in the early postoperative period. * Slightly decreased size of the soft tissue density within the distal right ureter. * Right hemicolectomy with intact enterocolic anastomosis within the midabdomen. * Long-term stability of a heterogeneous 2.6 cm left adrenal nodule. * Bilateral pulmonary parenchymal airspace opacities, with opacities in the left lower lobe and lingula similar to the prior CT, having previously shown FDG avidity, nonspecific. * Cholecystectomy. Assessment and Plan (1) Hematoma of kidney: Qualifiers: Encounter type: initial encounter Laterality: right Qualified Code(s): S37.011A - Minor contusion of right kidney, initial encounter Status: Acute 75F presented with suprapubic pain and worsening hematuria, found to have right subcapsular hematoma hematuria/hematoma monitor h and h holding eliquis ESRD on HD, renal eval hypothyroid synthroid bipolar continue mood stabilizers breast/bladder/ureteral ca outpatient follow up pafib/history of PE holding eliquis for hematuria dvt prophylaxis - mechanical due to hematuria Quality Stroke Does the patient have a stroke diagnosis?: No VTE Prior VTE?: No VTE Risk Level:: Medical - moderate - high VTE Device Contraindication: N/A - Device Ordered VTE Drug Contraindication: Treatment Not Tolerated (hematuria)
[2021-03-26 12:00] VITALS: BP 127/90; PULSE 92; RESP 17; TEMP 37.4; O2SAT 96
[2021-03-26] MEDS: Levothyroxine Sodium 125 MCG TABLET PO (12:03)
[2021-03-26] MEDS: Sevelamer Carbonate Tablet 800 MG TABLET 1600 MG PO ×2 (12:04→18:09)
--- NOTE | 2021-03-26 12:19 | PC.NURSE ---
pt taken to dialysis by transporters via stretcher.
--- NOTE | 2021-03-26 14:31 | PC.NURSE ---
pt c/o 02/24 headache, med x 1 with tylenol 650mg po in dialysis.
--- NOTE | 2021-03-26 14:33 | PC.NURSE ---
pt to go to room 386 after dialysis, belonging list was done by this rn. pt aware of plan of care for admission to hosp
--- NOTE | 2021-03-26 15:26 | PC.NURSE ---
[facility] 3 called rn is giving report will return call.
--- NOTE | 2021-03-26 15:32 | PC.NURSE ---
nurse to nurse given to vadim (rn), pt aware of plan of care for admission to hosp. internet project manager (ewelina) is aware that report was given to vadim (rn) on .
[2021-03-26] MEDS: 0.9 % Sodium Chloride Flush 3 ML SYRINGE IVFLUSH (18:09)
[2021-03-26 19:50] VITALS: BP 124/58; PULSE 95; RESP 18; TEMP 36.1; O2SAT 95
[2021-03-26] MEDS: clonazePAM 0.5 MG TABLET 1.5 MG PO (22:03)
[2021-03-26] MEDS: cloZAPine 100 MG TABLET 200 MG PO (22:05)
[2021-03-26] MEDS: cloZAPine 25 MG TABLET 50 MG PO (22:05)
[2021-03-26] MEDS: lamoTRIgine 100 MG TABLET 300 MG PO (22:06)
[2021-03-26] MEDS: Dronedarone HCl 400 MG TABLET PO (22:06)
[2021-03-27] VITALS (9 sets, daily range): BP systolic 96–127; BP diastolic 50–62; PULSE 84–108; RESP 17–20; TEMP 36.1–37.2; O2SAT 94–98
[2021-03-27] MEDS: 0.9 % Sodium Chloride Flush 3 ML SYRINGE IVFLUSH ×3 (00:40→17:07)
[2021-03-27] MEDS: Levothyroxine Sodium 125 MCG TABLET PO (06:37)
[2021-03-27 07:45] LABS: Hematocrit 27.2 % (37-47); Hemoglobin 8.6 g/dl (12.0-16.0); Mean Corpuscular HGB Conc 31.6 g/dl (31.0-35.0); Mean Corpuscular Hemoglobin 30.9 pg (27.0-33.0); Mean Corpuscular Volume 97.8 fL (80-98); Mean Platelet Volume 9.4 fL (9.4-12.3); Platelet Count 271 X10*3/uL (160-400); Red Blood Count 2.78 X10*6/uL (4.20-5.50); Red Cell Distribution Width 14.1 % (11.0-16.0); White Blood Count 13.1 X10*3/uL (4.8-10.8)
[2021-03-27] MEDS: Tamoxifen Citrate 10 MG TABLET 20 MG PO (07:49)
[2021-03-27] MEDS: Dronedarone HCl 400 MG TABLET PO ×2 (07:49→20:43)
[2021-03-27] MEDS: Sevelamer Carbonate Tablet 800 MG TABLET 1600 MG PO (07:49)
[2021-03-27 08:11] LABS: Anion Gap 16 (12-20); Blood Urea Nitrogen 28 mg/dL (9-16); Calcium 9.8 mg/dL (8.4-10.2); Carbon Dioxide 18 mmol/L (22-29); Chloride 104 mmol/L (96-108); Creatinine Clr Calc Pharmacy 10.8; Estimated Glomerular Filt Rate 10; Glucose Fasting 108 mg/dL (60-99); Potassium 4.2 mmol/L (3.3-5.1); Sodium 134 mmol/L (135-145)
[2021-03-27] MEDS: Albuterol Sulfate (0.083%) 2.5 MG/3 ML VIAL.NEB INHALE ×2 (08:13→20:14)
[2021-03-27] MEDS: Fluticasone/Vilanterol 200/25 BLST.W.DEV 1 PUFF INHALE (08:13)
--- NOTE | 2021-03-27 09:17 | PM.PNNEP ---
Subjective Subjective Date of Service: 03/27/21 Physical Exam Vital Signs: Vital Signs: Last Vital Signs Temp 97.3 F 03/27/21 07:48 Pulse 108 H 03/27/21 08:15 Resp 20 03/27/21 07:48 BP 114/62 03/27/21 07:48 Pulse Ox 94 03/27/21 07:48 Body Mass Index 24.0 Objective Data Labs CBC & Chem 7: 03/27/21 07:21 03/27/21 07:21 Labs: Laboratory Results - last 24 hr 03/26/21 03/27/21 03/27/21 09:43 07:21 07:21 WBC 13.1 H RBC 2.78 L Hgb 8.6 L Hct 27.2 L MCV 97.8 MCH 30.9 MCHC 31.6 RDW 14.1 Plt Count 271 MPV 9.4 Absolute Nucleated RBC 0.000 Nucleated RBC % (auto) 0.0 Sodium 134 L Potassium 4.2 D Chloride 104 Carbon Dioxide 18 L Anion Gap 16 BUN 28 H D Creatinine 4.32 H* Estim Creat Clear Calc 10.8 Estimated GFR 10 Fasting Glucose 108 H Calcium 9.8 Blood Type O Positive Antibody Screen NEGATIVE Procedures Date of Service Date of Service: 03/27/21 Assessment & Plan Assessment and plan (1) Hematoma of kidney: Status: Acute Assessment and Plan: 75F presented with suprapubic pain and worsening hematuria, found to have right subcapsular hematoma hematuria/hematoma monitor h and h holding eliquis ESRD had HD yesterday next rx in am Time Spent With Patient Time: Total time spent is greater than 50% in coordination of care (as documented) at patient's floor/unit and/or counseling patient: Progress Note: Quality Stroke Does the patient have a stroke diagnosis?: No
--- NOTE | 2021-03-27 11:10 | P.DS_ITS ---
DS: Providers Provider Date of Service: 03/27/21 Date of admission: 03/26/21 10:14 Primary care physician: Gabriel Acosta MD Consults: 03/26/21 10:12 Consult to Nephrology Routine Consulting Provider: Vladimir Cagle Reason for consultation: esrd Consult to Urology Routine Consulting Provider: Marshal Gould Reason for consultation: subcapsular hematoma DS: Diagnosis Discharge Diagnosis (1) Hematoma of kidney: Status: Acute DS: Medications Discharge Medications Home Medications: Home Medications Medication Instructions Recorded Confirmed clonazepam 1 mg tablet 1.5 mg PO BEDTIME 05/21/20 03/26/21 lamotrigine 150 mg tablet 300 mg PO BEDTIME 05/21/20 03/26/21 acetaminophen 325 mg tablet 650 mg PO BID PRN 05/22/20 03/26/21 fluticasone 500 mcg-salmeterol 50 1 inh INHALATION BID 05/22/20 03/26/21 mcg/dose blistr powdr for inhalation (Wixela Inhub) sevelamer carbonate 800 mg tablet 1,600 mg PO TIDWM 05/22/20 03/26/21 melatonin 10 mg capsule 20 mg PO BEDTIME PRN cap 09/06/20 03/26/21 clozapine 100 mg tablet 250 mg PO BEDTIME 01/04/21 03/26/21 hydroxyzine pamoate 50 mg capsule 50 mg PO BEDTIME PRN 03/21/21 03/26/21 Previous Rx's Medication Instructions Recorded dronedarone 400 mg tablet (Multaq) 400 mg PO BID 90 Days #180 tab 01/26/21 albuterol sulfate 2.5 mg INHALATION BID 30 Days #180 02/05/21 ml prochlorperazine maleate 5 mg 5 mg PO TID PRN #30 tab 03/09/21 tablet levothyroxine 125 mcg tablet 125 mcg PO QAM #90 tab 03/20/21 tamoxifen 20 mg tablet 20 mg PO DAILY #90 tab 03/20/21 DS: Summary Hospital Course Hospital Course: patient was observed for hematoma and right subcapsular renal hematoma. hgb was stbale, pain improved, and hematuria resolved. she will be discharged home. she will follow up with renal, , and oncology. continue to hold [employer]. Time Spent with Patient Time attestation: Total time spent providing and/or coordinating discharge services: Discharge coordination time: Greater than 30 minutes Quality: Stroke Does the patient have a stroke diagnosis?: No Physical Exam Vital Signs: Vital Signs: Last Vital Signs Temp 98.9 F 03/27/21 11:02 Pulse 104 H 03/27/21 11:02 Resp 20 03/27/21 11:02 BP 108/57 L 03/27/21 11:02 Pulse Ox 95 03/27/21 11:02 Body Mass Index 24.0 General: AO X 3, no acute distress Resp: CTA bilateral CVS: S1,S2,RRR GI: soft, non tender, non distended Neuro: motor grossly intact Psych: appropriate affect DS: Data Data Completed and Pending Completed studies during hospitalization [Text1]: Procedures Performance of Urinary Filtration, Intermittent, Less than 6 Hours Per Day (05/21/20) Labs on day of discharge: Laboratory Results - last 24 hr 03/27/21 03/27/21 07:21 07:21 WBC 13.1 H RBC 2.78 L Hgb 8.6 L Hct 27.2 L MCV 97.8 MCH 30.9 MCHC 31.6 RDW 14.1 Plt Count 271 MPV 9.4 Absolute Nucleated RBC 0.000 Nucleated RBC % (auto) 0.0 Sodium 134 L Potassium 4.2 D Chloride 104 Carbon Dioxide 18 L Anion Gap 16 BUN 28 H D Creatinine 4.32 H* Estim Creat Clear Calc 10.8 Estimated GFR 10 Fasting Glucose 108 H Calcium 9.8 Discharge Plan Discharge Patient Disposition: Home, Self-Care Discharge Diagnosis: hematoma Referrals: Gabriel Acosta MD [Primary Care Provider] - 1 Week Discharge Medications: Continued Multaq 400 mg tablet 400 mg PO BID 90 Days Qty: 180 RF: 1 prochlorperazine maleate 5 mg tablet 5 mg PO TID PRN (Reason: for nausea/vomiting) Qty: 30 RF: 0 levothyroxine 125 mcg tablet 125 mcg PO QAM Qty: 90 RF: 1 tamoxifen 20 mg Tablet 20 mg PO DAILY Qty: 90 RF: 4 lamotrigine 150 mg tablet 300 mg PO BEDTIME RF: 0 clonazepam 1 mg tablet 1.5 mg PO BEDTIME RF: 0 acetaminophen 325 mg Tablet 650 mg PO BID PRN (Reason: Pain (Scale Score 1-3)) RF: 0 fluticasone propion-salmeterol [Wixela Inhub] 500-50 mcg/dose Blister With Device 1 inh INHALATION BID RF: 0 sevelamer carbonate 800 mg Tablet 1,600 mg PO TIDWM RF: 0 clozapine 100 mg tablet 250 mg PO BEDTIME RF: 0 hydroxyzine pamoate 50 mg capsule 50 mg PO BEDTIME PRN (Reason: Itching) RF: 0 melatonin 10 mg capsule 20 mg PO BEDTIME PRN (Reason: Insomnia) RF: 0 albuterol sulfate 2.5 mg /3 mL (0.083 %) solution for nebulization 2.5 mg inhalation BID 30 Days Qty: 180 RF: 11 Discharge Orders: Discharge Order (Routine); Ordered 03/27/21 Ordered By: Aguila Ramos Diet: advance to usual diet Activity on Discharge: As tolerated Stand Alone Forms: Patient Portal Discharge page Care Plan Goals: recovery Health Concerns: hematoma Plan of Treatment: monitor Assessment: see above
--- NOTE | 2021-03-27 13:16 | HO.PM.IMPN ---
Subjective Subjective Date of Service: 03/27/21 Interval History: some right flnak pain Review of Systems cardiac: no chest pain respiratory: no sob Physical Exam Vital Signs: Vital Signs: Last Vital Signs Temp 98.9 F 03/27/21 11:02 Pulse 104 H 03/27/21 11:02 Resp 20 03/27/21 11:02 BP 108/57 L 03/27/21 11:02 Pulse Ox 95 03/27/21 11:02 Body Mass Index 24.0 General: lethargic Resp: CTA bilateral CVS: S1,S2,RRR GI: soft, non tender, non distended Neuro: motor grossly intact Psych: flat affect Objective Data Current Medications Generic Name Dose Route Start Last Admin Trade Name Freq PRN Reason Stop Dose Admin Acetaminophen 650 mg 03/26/21 10:10 Acetaminophen 325 Mg Tablet PO BID PRN Pain (Scale Score 1-3) Albuterol Sulfate 2.5 mg 03/26/21 20:00 03/27/21 08:13 Albuterol Sulfate (0.083%) 2.5 Mg/3 Ml Vial.Neb INHALE 2.5 mg RBID HERNESTO Administration Clonazepam 1.5 mg 03/26/21 21:00 03/26/21 22:03 Clonazepam 0.5 Mg Tablet PO 1.5 mg BEDTIME HERNESTO Administration Clozapine 50 mg 03/26/21 21:00 03/26/21 22:05 Clozapine 25 Mg Tablet PO 50 mg BEDTIME HERNESTO Administration Clozapine 200 mg 03/26/21 21:00 03/26/21 22:05 Clozapine 100 Mg Tablet PO 200 mg BEDTIME HERNESTO Administration Dronedarone 400 mg 03/26/21 21:00 03/27/21 07:49 Dronedarone Hcl 400 Mg Tablet PO 400 mg BID HERNESTO Administration Fluticasone/Vilanterol 1 puff 03/26/21 10:30 03/27/21 08:13 Fluticasone/Vilanterol 200/25 Blst.W.Dev INHALE 1 puff DAILY HERNESTO Administration Hydroxyzine HCl 50 mg 03/26/21 10:10 Hydroxyzine Hcl 50 Mg Tablet PO BEDTIME PRN Itching Lamotrigine 300 mg 03/26/21 21:00 03/26/21 22:06 Lamotrigine 100 Mg Tablet PO 300 mg BEDTIME HERNESTO Administration Levothyroxine Sodium 125 mcg 03/26/21 10:15 03/27/21 06:37 Levothyroxine Sodium 125 Mcg Tablet PO 125 mcg DAILY@0600 HERNESTO Administration Melatonin 21 mg 03/26/21 10:30 Melatonin 3 Mg Tablet PO BEDTIME PRN Insomnia Pharmacy Consult 1 each 03/26/21 03:48 Consult Rx Perform Med Rec MISCELLANE ONCE PRN Consult order Prochlorperazine Maleate 5 mg 03/26/21 10:10 Prochlorperazine Maleate 5 Mg Tablet PO TID PRN for nausea/vomiting Sevelamer Carbonate 1,600 mg 03/26/21 12:00 03/27/21 12:51 Sevelamer Carbonate Tablet 800 Mg Tablet PO Not Given TIDWM HERNESTO Sodium Chloride 3 ml 03/26/21 16:00 03/27/21 07:50 0.9 % Sodium Chloride Flush 3 Ml Syringe IVFLUSH 3 ml QSHIFT HERNESTO Administration Tamoxifen Citrate 20 mg 03/27/21 09:00 03/27/21 07:49 Tamoxifen Citrate 10 Mg Tablet PO 20 mg DAILY HERNESTO Administration Labs CBC & Chem 7: 03/27/21 07:21 03/27/21 07:21 Labs: Laboratory Results - last 24 hr 03/27/21 03/27/21 07:21 07:21 MCV 97.8 MCH 30.9 MCHC 31.6 RDW 14.1 Plt Count 271 MPV 9.4 Absolute Nucleated RBC 0.000 Nucleated RBC % (auto) 0.0 Anion Gap 16 Estim Creat Clear Calc 10.8 Estimated GFR 10 Fasting Glucose 108 H Calcium 9.8 Assessment and Plan (1) Hematoma of kidney: Status: Acute Assessment and Plan: ?75F presented with suprapubic pain and worsening hematuria, found to have right subcapsular hematoma hematuria/hematoma holding eliquis h and h stable hematuria improved ESRD on HD hypothyroid synthroid bipolar continue mood stabilizers breast/bladder/ureteral ca outpatient follow up pafib/history of PE holding eliquis for hematuria dvt prophylaxis - mechanical due to hematuria Quality Stroke Does the patient have a stroke diagnosis?: No VTE Prior VTE?: No VTE Risk Level:: Medical - moderate - high VTE Device Contraindication: N/A - Device Ordered VTE Drug Contraindication: Treatment Not Tolerated (hematuria)
--- NOTE | 2021-03-27 13:35 | P.F2F_ITS ---
Service Date Service Date: 03/27/21 Encounter Date of encounter: 03/27/21 Reasons for Services Reason for penitentiary: medication management, medication treatment, teach disease management, GI/ assessment and other ([place] care) Homebound: Leaving the home is medically contraindicated at this time without the asist of a device and/or another person due th the listed conditions above a nd below. Certification: Based on the above findings, I certify that this patient is confined to the home and needs intermittent penitentiary care, physical therapy and/or speech therapy, or continues to need occupational therapy. The patient is under my care, and I have initiated the establishment of the plan of care. The patient will be followed by a physician who will periodically review the plan of care.
--- NOTE | 2021-03-27 13:54 | MHC.CM.PN ---
SHYANN 03/27, EMR REVIEWED, PT ADMITTED W/HEMATURIA AND SUBCAPSULAR HEMATOMA, CM MET W/PT WHO IS VERY GROGGY AND KEPT FALLING ASLEEP, MOST INFO CAME FROM NOTE FROM PREVIOUS ADMIT AND WHO REPORTED PT WAS HOME FOR 12HRS AND HAD BLOOD IN URINE AND BROUGHT HER BACK, PT LIVES W/HER AND IS MOSTLY INDEPENDENT, ASSISTS NEEDED, PT IS CURRENTLY USES A WC AND WHEELED WALKER AT TIMES, PT IS ACTIVE [facility] PALLIATIVE NURSE WHO VISITS EVERY TWO WEEKS, PCP, DIALYSIS CENTER, PSYCHIATRIST AND HCP VERIFIED. PER PT'S [place] ANGEL HE WILL MAKE APPT TO FOLLOW-UP W/PT'S UROLOGIST FOR STENT/DUVALL W/DR LAZCANO. D/C PLAN: HOME TODAY W/[facility] FOR PALLIATIVE CARE AND INCREASED VISITS FOR NEW DUVALL, TO TRANSPORT. PCP: MADHURI MEHTA PSYCHIATRIST: [facility]: [facility]-
--- NOTE | 2021-03-27 15:03 | PC.NURSE ---
Prudence has been very drowsy and default to arouse. She does arouse to stimuli such as shaking and calling her name. she fabricio open her eyes and mumble a response. she slept through breakfast. She became more alter by lunch time. She ate a few bites. Later this afternoon she was willing to try to get up to a chair but was unable coordinate her movements in order to get at a dangle. She gave up and stayed in bed. Dr Rachel georges.
--- NOTE | 2021-03-27 18:34 | PC.NURSE ---
P patient lethargic , visiting does not feel patient is ready for discharge I Dr. Ramos notified E discharge cancelled
[2021-03-27] MEDS: cloZAPine 100 MG TABLET 200 MG PO (20:43)
[2021-03-27] MEDS: cloZAPine 25 MG TABLET 50 MG PO (20:44)
[2021-03-27] MEDS: lamoTRIgine 100 MG TABLET 300 MG PO (20:44)
--- NOTE | 2021-03-27 22:01 | PC.NURSE ---
P patient very lethargic all day today I held clonazepam this evening E will monitor
[2021-03-27] MEDS: Acetaminophen 325 MG TABLET 650 MG PO (22:56)
[2021-03-28] VITALS (7 sets, daily range): BP systolic 96–116; BP diastolic 50–59; PULSE 80–91; RESP 17–20; TEMP 36.6–36.9; O2SAT 92–98
[2021-03-28] MEDS: 0.9 % Sodium Chloride Flush 3 ML SYRINGE IVFLUSH ×3 (00:20→17:02)
[2021-03-28] MEDS: Levothyroxine Sodium 125 MCG TABLET PO (06:31)
[2021-03-28 07:17] LABS: Anion Gap 20 (12-20); Blood Urea Nitrogen 44 mg/dL (9-16); Calcium 9.8 mg/dL (8.4-10.2); Carbon Dioxide 14 mmol/L (22-29); Chloride 103 mmol/L (96-108); Creatinine Clr Calc Pharmacy 7.7; Estimated Glomerular Filt Rate 7; Glucose Fasting 94 mg/dL (60-99); Potassium 5.1 mmol/L (3.3-5.1); Sodium 132 mmol/L (135-145)
[2021-03-28 07:31] LABS: Hematocrit 22.8 % (37-47); Hemoglobin 7.5 g/dl (12.0-16.0); Mean Corpuscular HGB Conc 32.9 g/dl (31.0-35.0); Mean Corpuscular Hemoglobin 32.2 pg (27.0-33.0); Mean Corpuscular Volume 97.9 fL (80-98); Mean Platelet Volume 9.4 fL (9.4-12.3); Platelet Count 239 X10*3/uL (160-400); Red Blood Count 2.33 X10*6/uL (4.20-5.50); White Blood Count 10.5 X10*3/uL (4.8-10.8)
--- NOTE | 2021-03-28 08:03 | PM.PNNEP ---
Subjective Subjective Date of Service: 03/28/21 Physical Exam Vital Signs: Vital Signs: Last Vital Signs Temp 98.1 F 03/28/21 07:47 Pulse 85 03/28/21 07:47 Resp 19 03/28/21 07:47 BP 101/50 L 03/28/21 07:47 Pulse Ox 94 03/28/21 07:47 Body Mass Index 24.0 Objective Data Labs CBC & Chem 7: 03/28/21 07:19 03/28/21 05:58 Labs: Laboratory Results - last 24 hr 03/27/21 03/28/21 03/28/21 07:21 05:58 07:19 WBC 10.5 RBC 2.33 L Hgb 7.5 L Hct 22.8 L MCV 97.9 MCH 32.2 MCHC 32.9 RDW 14.0 Plt Count 239 MPV 9.4 Absolute Nucleated RBC 0.000 Nucleated RBC % (auto) 0.0 Sodium 134 L 132 L Potassium 4.2 D 5.1 D Chloride 104 103 Carbon Dioxide 18 L 14 L Anion Gap 16 20 BUN 28 H D 44 H D Creatinine 4.32 H* 6.03 H* Estim Creat Clear Calc 10.8 7.7 Estimated GFR 10 7 Fasting Glucose 108 H 94 Calcium 9.8 9.8 Procedures Date of Service Date of Service: 03/28/21 Assessment & Plan Assessment and plan (1) Hematoma of kidney: Status: Acute Assessment and Plan: ?75F presented with suprapubic pain and worsening hematuria, found to have right subcapsular hematoma hematuria/hematoma holding eliquis h and h stable hematuria improved ESRD on HD seen on dialysis today Time Spent With Patient Time: Total time spent is greater than 50% in coordination of care (as documented) at patient's floor/unit and/or counseling patient: Progress Note: Quality Stroke Does the patient have a stroke diagnosis?: No
[2021-03-28] MEDS: Acetaminophen 325 MG TABLET 650 MG PO (11:23)
--- NOTE | 2021-03-28 11:51 | MHC.CM.PN ---
EMR REVIEWED, PT HAS DIALYSIS TODAY, PER HOSPITALIST PT STILL HAS HEMATURIA AND ABD PAIN, NOT READY FOR D/C TODAY, ANTI D/C 1-2 DAYS. CM WILL CONT TO FOLLOW.
--- NOTE | 2021-03-28 11:58 | P.PNIM_ITS ---
Subjective Subjective Date of Service: 03/28/21 Interval History: the patient was seen and evaluated this morning Laying in bed, complaining of headache Seen in dialysis, tolerating well Hematuria improving Drop in hemoglobin level Denies any fever, chills or shortness of breath No reported other overnight events. Systemic review: No fever, chills but complaining of weakness and headache No chest pain, palpitation No shortness of breath or coughing No abdominal pain, nausea or vomiting Hematuria No wounds Physical Exam Vital Signs: Vital Signs: Last Vital Signs Temp 98.1 F 03/28/21 07:47 Pulse 85 03/28/21 07:47 Resp 19 03/28/21 07:47 BP 101/50 L 03/28/21 07:47 Pulse Ox 94 03/28/21 07:47 Body Mass Index 24.0 Const: Other: Constitutional : Alert, oriented, mild distress from pain of headache Neck : Normal inspection, Supple Cardiovascular : RRR, S1 S2, no lower extremity edema, dialysis catheter in place Respiratory : Fair bilateral air entry, no crackles, wheezes or rhonchi Gastrointestinal: soft, lax, Normal bowel sounds, Non tender Skin : Warm, Dry Neurological : Alert & oriented x3, No focal deficit Objective Data Current Medications Generic Name Dose Route Start Last Admin Trade Name Freq PRN Reason Stop Dose Admin Acetaminophen 650 mg 03/26/21 10:10 03/28/21 11:23 Acetaminophen 325 Mg Tablet PO 650 mg BID PRN Administration Pain (Scale Score 1-3) Albuterol Sulfate 2.5 mg 03/26/21 20:00 03/28/21 08:26 Albuterol Sulfate (0.083%) 2.5 Mg/3 Ml Vial.Neb INHALE Not Given RBID HERNESTO Clonazepam 1.5 mg 03/26/21 21:00 03/27/21 20:43 Clonazepam 0.5 Mg Tablet PO Not Given BEDTIME HERNESTO Clozapine 50 mg 03/26/21 21:00 03/27/21 20:44 Clozapine 25 Mg Tablet PO 50 mg BEDTIME HERNESTO Administration Clozapine 200 mg 03/26/21 21:00 03/27/21 20:43 Clozapine 100 Mg Tablet PO 200 mg BEDTIME HERNESTO Administration Dronedarone 400 mg 03/26/21 21:00 03/27/21 20:43 Dronedarone Hcl 400 Mg Tablet PO 400 mg BID HERNESTO Administration Fluticasone/Vilanterol 1 puff 03/26/21 10:30 03/28/21 08:27 Fluticasone/Vilanterol 200/25 Blst.W.Dev INHALE Not Given DAILY HERNESTO Hydroxyzine HCl 50 mg 03/26/21 10:10 Hydroxyzine Hcl 50 Mg Tablet PO BEDTIME PRN Itching Lamotrigine 300 mg 03/26/21 21:00 03/27/21 20:44 Lamotrigine 100 Mg Tablet PO 300 mg BEDTIME HERNESTO Administration Levothyroxine Sodium 125 mcg 03/26/21 10:15 03/28/21 06:31 Levothyroxine Sodium 125 Mcg Tablet PO 125 mcg DAILY@0600 HERNESTO Administration Melatonin 21 mg 03/26/21 10:30 Melatonin 3 Mg Tablet PO BEDTIME PRN Insomnia Pharmacy Consult 1 each 03/26/21 03:48 Consult Rx Perform Med Rec MISCELLANE ONCE PRN Consult order Prochlorperazine Maleate 5 mg 03/26/21 10:10 Prochlorperazine Maleate 5 Mg Tablet PO TID PRN for nausea/vomiting Sevelamer Carbonate 1,600 mg 03/26/21 12:00 03/27/21 17:08 Sevelamer Carbonate Tablet 800 Mg Tablet PO Not Given TIDWM [facility] Sodium Bicarbonate 650 mg 03/28/21 09:00 Sodium Bicarbonate 650 Mg Tablet PO BID [facility] Sodium Chloride 3 ml 03/26/21 16:00 03/28/21 00:20 0.9 % Sodium Chloride Flush 3 Ml Syringe IVFLUSH 3 ml QSHIFT HERNESTO Administration Tamoxifen Citrate 20 mg 03/27/21 09:00 03/27/21 07:49 Tamoxifen Citrate 10 Mg Tablet PO 20 mg DAILY HERNESTO Administration Labs CBC & Chem 7: 03/28/21 07:19 03/28/21 05:58 Labs: Laboratory Results - last 24 hr 03/28/21 03/28/21 05:58 07:19 MCV 97.9 MCH 32.2 MCHC 32.9 RDW 14.0 Plt Count 239 MPV 9.4 Absolute Nucleated RBC 0.000 Nucleated RBC % (auto) 0.0 Anion Gap 20 Estim Creat Clear Calc 7.7 Estimated GFR 7 Fasting Glucose 94 Calcium 9.8 Assessment and Plan (1) Hematoma of kidney: Status: Acute (2) Gross hematuria: Status: Acute (3) Acute on chronic blood loss anemia: Status: Acute Assessment and Plan: ?75F presented with suprapubic pain and worsening hematuria, found to have right subcapsular hematoma Acute on chronic blood loss anemia Secondary to hematuria/hematoma holding eliquis Hemoglobin 7.5 today hematuria improved Hold on transfusion until below 7 Headache To use tramadol for today ESRD on HD MWF hypothyroid synthroid bipolar continue mood stabilizers breast/bladder/ureteral ca outpatient follow up pafib/history of PE holding eliquis for hematuria dvt prophylaxis - mechanical due to hematuria Quality Stroke Does the patient have a stroke diagnosis?: No VTE Prior VTE?: No VTE Risk Level:: Medical - moderate - high VTE Device Contraindication: N/A - Device Ordered VTE Drug Contraindication: Treatment Not Tolerated (hematuria)
[2021-03-28] MEDS: Dronedarone HCl 400 MG TABLET PO ×2 (12:30→20:54)
[2021-03-28] MEDS: Sodium Bicarbonate 650 MG TABLET PO ×2 (12:30→20:53)
[2021-03-28] MEDS: Sevelamer Carbonate Tablet 800 MG TABLET 1600 MG PO ×2 (12:30→17:02)
[2021-03-28] MEDS: Tamoxifen Citrate 10 MG TABLET 20 MG PO (12:31)
--- NOTE | 2021-03-28 13:10 | MHC.CLN ---
NUTRITION/DIET PATIENT RECEIVES HEMODIALYSIS 3 X WEEKLY. DIET CHANGED TO 2 G SODIUM, LOW PHOSPHOROUS, LOW POTASSIUM PER GUIDELINES.
[2021-03-28] MEDS: Albuterol Sulfate (0.083%) 2.5 MG/3 ML VIAL.NEB INHALE (19:45)
[2021-03-28] MEDS: cloZAPine 100 MG TABLET 200 MG PO (20:53)
[2021-03-28] MEDS: clonazePAM 0.5 MG TABLET 1.5 MG PO (20:54)
[2021-03-28] MEDS: cloZAPine 25 MG TABLET 50 MG PO (20:54)
[2021-03-28] MEDS: lamoTRIgine 100 MG TABLET 300 MG PO (20:56)
[2021-03-29] VITALS: BP 117/60; PULSE 95; RESP 16; TEMP 36.3; O2SAT 95
[2021-03-29] MEDS: 0.9 % Sodium Chloride Flush 3 ML SYRINGE IVFLUSH ×2 (01:12→09:40)
[2021-03-29 04:00] VITALS: BP 133/65; PULSE 74; RESP 16; TEMP 36.8; O2SAT 98
[2021-03-29] MEDS: Levothyroxine Sodium 125 MCG TABLET PO (06:04)
[2021-03-29 06:52] LABS: Hematocrit 24.5 % (37-47); Hemoglobin 7.9 g/dl (12.0-16.0); Mean Corpuscular HGB Conc 32.2 g/dl (31.0-35.0); Mean Corpuscular Hemoglobin 31.7 pg (27.0-33.0); Mean Corpuscular Volume 98.4 fL (80-98); Mean Platelet Volume 9.6 fL (9.4-12.3); Platelet Count 280 X10*3/uL (160-400); Red Blood Count 2.49 X10*6/uL (4.20-5.50); Red Cell Distribution Width 14.1 % (11.0-16.0); White Blood Count 9.6 X10*3/uL (4.8-10.8)
[2021-03-29 07:34] VITALS: PULSE 89; O2SAT 93
[2021-03-29] MEDS: Albuterol Sulfate (0.083%) 2.5 MG/3 ML VIAL.NEB INHALE (07:34)
[2021-03-29] MEDS: Fluticasone/Vilanterol 200/25 BLST.W.DEV 1 PUFF INHALE (07:34)
[2021-03-29 08:00] VITALS: BP 128/65; PULSE 88; RESP 17; TEMP 36.8; O2SAT 96
[2021-03-29] MEDS: Acetaminophen 325 MG TABLET 650 MG PO (09:39)
[2021-03-29] MEDS: Tamoxifen Citrate 10 MG TABLET 20 MG PO (09:39)
[2021-03-29] MEDS: Dronedarone HCl 400 MG TABLET PO (09:40)
[2021-03-29] MEDS: Sevelamer Carbonate Tablet 800 MG TABLET 1600 MG PO (09:40)
[2021-03-29] MEDS: Sodium Bicarbonate 650 MG TABLET PO (09:58)
[2021-03-29 11:12] VITALS: BP 128/65; PULSE 88; O2SAT 96
[2021-03-29 11:15] VITALS: BP 115/64; PULSE 85; RESP 16; TEMP 36.9; O2SAT 99
--- NOTE | 2021-03-29 13:03 | PM.DS ---
DS: Providers Provider Date of Service: 04/03/21 Date of admission: 03/26/21 10:14 Primary care physician: Gabriel Acosta MD Consults: 03/26/21 10:12 Consult to Nephrology Routine Consulting Provider: Vladimir Cagle Reason for consultation: esrd Consult to Urology Routine Consulting Provider: Marshal Gould Reason for consultation: subcapsular hematoma DS: Diagnosis Discharge Diagnosis (1) Hematoma of kidney: Status: Resolved (2) Gross hematuria: Status: Resolved (3) Acute on chronic blood loss anemia: Status: Resolved DS: Medications Discharge Medications Home Medications: Home Medications Medication Instructions Recorded Confirmed clonazepam 1 mg tablet 1.5 mg PO BEDTIME 05/21/20 03/26/21 lamotrigine 150 mg tablet 300 mg PO BEDTIME 05/21/20 03/26/21 acetaminophen 325 mg tablet 650 mg PO BID PRN 05/22/20 03/26/21 fluticasone 500 mcg-salmeterol 50 1 inh INHALATION BID 05/22/20 03/26/21 mcg/dose blistr powdr for inhalation (Wixela Inhub) sevelamer carbonate 800 mg tablet 1,600 mg PO TIDWM 05/22/20 03/26/21 melatonin 10 mg capsule 20 mg PO BEDTIME PRN cap 09/06/20 03/26/21 clozapine 100 mg tablet 250 mg PO BEDTIME 01/04/21 03/26/21 hydroxyzine pamoate 50 mg capsule 50 mg PO BEDTIME PRN 03/21/21 03/26/21 Previous Rx's Medication Instructions Recorded dronedarone 400 mg tablet (Multaq) 400 mg PO BID 90 Days #180 tab 01/26/21 albuterol sulfate 2.5 mg INHALATION BID 30 Days #180 02/05/21 ml prochlorperazine maleate 5 mg 5 mg PO TID PRN #30 tab 03/09/21 tablet levothyroxine 125 mcg tablet 125 mcg PO QAM #90 tab 03/20/21 tamoxifen 20 mg tablet 20 mg PO DAILY #90 tab 03/20/21 DS: Summary Hospital Course Hospital Course: Admission note HPI [id number] discharged from [facility] [place] after admission for hematuria and right ureteric cancer, s/p stent placement. hematuria had improved, patient was discharged home. now returning with suprapubic cramping pain and worsening hematuria. in ED CT showed?New subcapsular hematoma along the posterior right kidney measuring up to 3.9 cm in thickness. hgb stable. Hospital course patient was observed for hematoma and right subcapsular renal hematoma. hgb was stbale dropped to 7.5 then improved back to almost 8. pain improved, and hematuria resolved. Had dialysis session done. she will be discharged home with VNA services. she will follow up with renal, , and oncology. continue to hold eliquis at time of discharge per Urology, to follow-up with Dr. Gould before restarting blood thinners. Time Spent with Patient Time attestation: Total time spent providing and/or coordinating discharge services: Discharge coordination time: Greater than 30 minutes Quality: Stroke Does the patient have a stroke diagnosis?: No Physical Exam Vital Signs: Vital Signs: Last Vital Signs Temp 98.4 F 03/29/21 11:15 Pulse 85 03/29/21 11:15 Resp 16 03/29/21 11:15 BP 115/64 03/29/21 11:15 Pulse Ox 99 03/29/21 11:15 Body Mass Index 24.0 Const: Other: Constitutional : Alert, oriented Neck : Normal inspection, Supple Cardiovascular : RRR, S1 S2, no lower extremity edema, dialysis catheter in place Respiratory : Fair bilateral air entry, no crackles, wheezes or rhonchi Gastrointestinal: soft, lax, Normal bowel sounds, Non tender Skin : Warm, Dry Neurological : Alert & oriented x3, moving all extremities, No focal deficit DS: Data Data Completed and Pending Completed studies during hospitalization [Text1]: Procedures Performance of Urinary Filtration, Intermittent, Less than 6 Hours Per Day (05/21/20) Labs on day of discharge: Laboratory Results - last 24 hr 03/29/21 05:48 WBC 9.6 RBC 2.49 L Hgb 7.9 L Hct 24.5 L MCV 98.4 H MCH 31.7 MCHC 32.2 RDW 14.1 Plt Count 280 MPV 9.6 Absolute Nucleated RBC 0.000 Nucleated RBC % (auto) 0.0 Discharge Plan Discharge Patient Disposition: Home Health Service Discharge Diagnosis: hematoma Referrals: [facility] [Outside] - 1 Day Gabriel Acosta MD [Primary Care Provider] - 1 Week Discharge Medications: Continued Multaq 400 mg tablet 400 mg PO BID 90 Days Qty: 180 RF: 1 prochlorperazine maleate 5 mg tablet 5 mg PO TID PRN (Reason: for nausea/vomiting) Qty: 30 RF: 0 levothyroxine 125 mcg tablet 125 mcg PO QAM Qty: 90 RF: 1 tamoxifen 20 mg Tablet 20 mg PO DAILY Qty: 90 RF: 4 lamotrigine 150 mg tablet 300 mg PO BEDTIME RF: 0 clonazepam 1 mg tablet 1.5 mg PO BEDTIME RF: 0 acetaminophen 325 mg Tablet 650 mg PO BID PRN (Reason: Pain (Scale Score 1-3)) RF: 0 fluticasone propion-salmeterol [Wixela Inhub] 500-50 mcg/dose Blister With Device 1 inh INHALATION BID RF: 0 sevelamer carbonate 800 mg Tablet 1,600 mg PO TIDWM RF: 0 clozapine 100 mg tablet 250 mg PO BEDTIME RF: 0 hydroxyzine pamoate 50 mg capsule 50 mg PO BEDTIME PRN (Reason: Itching) RF: 0 melatonin 10 mg capsule 20 mg PO BEDTIME PRN (Reason: Insomnia) RF: 0 albuterol sulfate 2.5 mg /3 mL (0.083 %) solution for nebulization 2.5 mg inhalation BID 30 Days Qty: 180 RF: 11 Discharge Orders: Discharge Order (Routine); Ordered 03/29/21 Ordered By: Matthew Adorno Diet: advance to usual diet Activity on Discharge: As tolerated Stand Alone Forms: Patient Portal Discharge page Care Plan Goals: recovery Health Concerns: Hematuria Plan of Treatment: monitor urine output and blood in the urine and to follow-up with Dr. Gould as needed Assessment: see above Discharge Date/Time: 03/29/21 15:22
--- NOTE | 2021-03-29 14:23 | PC.NURSE ---
1430 F/C dc'd HJad 50ml brown urine
--- NOTE | 2021-03-29 15:15 | W.MHC.F2F ---
Service Date Service Date: 03/29/21 Encounter Date of encounter: 03/29/21 Reasons for Services Reason for residential: medication treatment and teach disease management Reason for physical therapy: home safety and mobility and therapeutic exercises Homebound: Leaving the home is medically contraindicated at this time without the asist of a device and/or another person due th the listed conditions above and below. Certification: Based on the above findings, I certify that this patient is confined to the home and needs intermittent residential care, physical therapy and/or speech therapy, or continues to need occupational therapy. The patient is under my care, and I have initiated the establishment of the plan of care. The patient will be followed by a physician who will periodically review the plan of care.
== END 2021-03-29 15:22 | disposition home health service (06) ==
LOC: HO.ED 06:04 → HO.EDOVER 10:21 → HO.S3 14:12
PROVIDERS: Admitting Provider Internal Medicine; Emergency Provider Emergency Medicine; PCP Internal Medicine; Visit Provider Student in an Organized Health Care Education/Training Program
DX: R10.30 Lower abdominal pain, unspecified (principal); N18.6 End stage renal disease; S37.011A Minor contusion of right kidney, initial encounter; X58.XXXA Exposure to other specified factors, initial encounter; Y93.9 Activity, unspecified; Y92.9 Unspecified place or not applicable; Y99.8 Other external cause status; R31.0 Gross hematuria; N13.30 Unspecified hydronephrosis; C67.9 Malignant neoplasm of bladder, unspecified; J41.8 Mixed simple and mucopurulent chronic bronchitis; I77.0 Arteriovenous fistula, acquired; Z87.891 Personal history of nicotine dependence; Z20.822 Contact with and (suspected) exposure to COVID-19; Z46.6 Encounter for fitting and adjustment of urinary device; Z88.8 Allergy status to other drugs, medicaments and biological substances; Z79.899 Other long term (current) drug therapy
CPT/HCPCS: 0241U; 36415; 51798; 74176; 80048; 85025; 85027; 86850; 86900; 86901; 90999; 97162; 99218; 99285

== ENCOUNTER 2021-04-05 19:44 | Inpatient (IN) | payer MEDICARE, BC, SELFPAY ==
--- NOTE | ~2021-04-05 | CT_ITS ---
EXAMINATION: CT ABDOMEN AND PELVIS WITHOUT CONTRAST CLINICAL INFORMATION: Abdominal pain COMPARISON: 03/26/2021 TECHNIQUE: Multidetector volumetric imaging was performed from the superior aspect of the liver through the pubic symphysis. Sagittal and coronal reformatted images were obtained on the technologist's workstation. This CT examination was performed using dose optimization techniques as appropriate, variously including the following: *Automated exposure control *Adjustment of mA and/or kV according to patient size (this includes techniques or standardized protocols for targeted exams where dose is matched to indication/reason for exam; i.e. extremities or head) *Use of iterative reconstruction technique DLP: 424 mGy-cm FINDINGS: LUNG BASES: Patchy nodular opacities are again noted at the left lung base. This is without significant change in appearance from previous. Dependent right basilar atelectasis. Coronary artery calcifications. LIVER, GALLBLADDER, AND BILIARY TREE: The liver is normal in size, shape, and attenuation. No focal hepatic lesion or biliary ductal dilatation is present. Cholecystectomy. PANCREAS: Unremarkable. SPLEEN: Unremarkable. ADRENAL GLANDS: The right adrenal gland is unremarkable. Unchanged left adrenal gland nodule. KIDNEYS AND URETERS: Atrophic kidneys. Numerous cysts are seen throughout both kidneys essentially replacing the parenchyma. Cortical thinning. Scattered calcifications throughout the cysts. This appearance is without significant change. Along the posterior capsule of the right kidney there is a subcapsular hematoma again noted. This measures 3.3 cm in thickness, similar to previous. Mild perinephric stranding is again noted, somewhat decreased from prior. Bilateral ureteral stents remain in place. Soft tissue nodularity along the distal ureter is unchanged. No hydronephrosis. BLADDER: Decompressed with no wall thickening or calculi. GASTROINTESTINAL TRACT: The stomach is unremarkable. Normal caliber small bowel. There is no obstruction. Mid abdominal enterocolic anastomosis. Right hemicolectomy. No colonic wall thickening or acute inflammatory change. No free air or free fluid. ABDOMINAL WALL: No significant hernia is appreciated. LYMPH NODES: Normal. VASCULAR: Normal caliber aorta with moderate atherosclerotic calcification. The infrarenal abdominal aorta measures up to 2.3 cm. PELVIC VISCERA: No pelvic mass. Decreased presacral fat stranding. OSSEOUS STRUCTURES: No acute or suspicious osseous abnormality. Degenerative changes throughout the spine. Multilevel vacuum disc phenomenon. Advanced degenerative changes of the right hip with [id number] appearance superiorly. CT/CT abdomen pelvis wo con IMPRESSION: 1. Similar appearance of the right posterior renal subcapsular hematoma. Perinephric stranding again noted which is somewhat decreased from prior. 2. Bilateral ureteral stents remain in place. Similar soft tissue nodularity along the distal ureter. 3. No acute inflammatory changes of the abdomen or pelvis. 4. Similar appearance of the lung bases. Nodular opacities at the left base are without significant change.
[2021-04-05 22:06] VITALS: BP 121/62; PULSE 99; RESP 16; TEMP 37.2; O2SAT 93; BMI 21.6
[2021-04-05 22:47] LABS: Glucose Urine UA NEG (NEG); Leukocyte Esterase Urine 3+ (NEG); Nitrite Urine POS (NEG); PH 8.5 (5.0-8.0); Urine Blood 3+ (NEG); Urine Ketones NEG (NEG)
[2021-04-05 22:49] LABS: Appearance Urine TURBID; Color Urine BROWN; Urine Protein 3+ MG/DL (NEG-TRACE)
[2021-04-05 23:06] LABS: Bacteria Urine 2+ /LPF; Squamous Epithelial Cell Urine 1+ /LPF; WBC Urine TNTC /HPF (0-4)
--- NOTE | 2021-04-05 23:36 | ED.ABDPAIN ---
HPI - Abdominal Pain General Chief Complaint: Abdominal Pain Stated Complaint: abd pain Time Seen by Provider: 04/05/21 23:33 Source: patient Mode of arrival: ambulatory Limitations: no limitations History of Present Illness HPI narrative: 75-year-old female history of ureteral cancer and hematuria status post stent placement. Patient recently had recent hospitalization for bladder cancer and hematuria with acute renal failure. Patient declined any fever chills. Patient with history of chronic renal failure patient is on dialysis. Related Data Home Medications Medication Instructions Recorded Confirmed clonazepam 1 mg tablet 1.5 mg PO BEDTIME 05/21/20 03/26/21 lamotrigine 150 mg tablet 300 mg PO BEDTIME 05/21/20 03/26/21 acetaminophen 325 mg tablet 650 mg PO BID PRN 05/22/20 03/26/21 fluticasone 500 mcg-salmeterol 50 1 inh INHALATION BID 05/22/20 03/26/21 mcg/dose blistr powdr for inhalation (Wixela Inhub) sevelamer carbonate 800 mg tablet 1,600 mg PO TIDWM 05/22/20 03/26/21 melatonin 10 mg capsule 20 mg PO BEDTIME PRN cap 09/06/20 03/26/21 clozapine 100 mg tablet 250 mg PO BEDTIME 01/04/21 03/26/21 hydroxyzine pamoate 50 mg capsule 50 mg PO BEDTIME PRN 03/21/21 03/26/21 Previous Rx's Medication Instructions Recorded dronedarone 400 mg tablet (Multaq) 400 mg PO BID 90 Days #180 tab 01/26/21 albuterol sulfate 2.5 mg INHALATION BID 30 Days #180 02/05/21 ml prochlorperazine maleate 5 mg 5 mg PO TID PRN #30 tab 03/09/21 tablet levothyroxine 125 mcg tablet 125 mcg PO QAM #90 tab 03/20/21 tamoxifen 20 mg tablet 20 mg PO DAILY #90 tab 03/20/21 Allergies Allergy/AdvReac Type Severity Reaction Status Date / Time adhesive tape Allergy Intermediate Blister Verified 03/15/21 16:05 aspirin Allergy Intermediate RASH Verified 03/15/21 16:05 benztropine Allergy Intermediate RASH Verified 03/15/21 16:05 NSAIDS (Non-Steroidal Allergy Intermediate RASH Verified 03/15/21 16:05 Anti-Inflamma ziprasidone Allergy Unknown UNKNOWN Verified 03/15/21 16:05 doxycycline AdvReac Vomiting Verified 03/15/21 16:05 oxycodone AdvReac Anaphylaxis Verified 04/05/21 23:35 Review of Systems Review of Systems All other systems are reviewed and are negative Constitutional: Reports as per HPI and Reports no additional constitutional complaints Eyes: Reports as per HPI and Reports no additional eye complaints Reports system reviewed and no additional complaints, except as documented Cardiovascular: Reports as per HPI and Reports no additional cardiovascular complaints Respiratory: Reports as per HPI and Reports no additional respiratory complaints Gastrointestinal: Reports as per HPI and Reports no additional gastrointestinal complaints Genitourinary: Reports no additional female genitourinary complaints Musculoskeletal: Reports no additional musculoskeletal complaints Skin/Breast: Reports system reviewed and no additional complaints, except as docu Psychiatric: Reports no additional psychiatric complaints Endocrine: Reports no additional endocrine complaints Hematologic/Lymphatic: Reports no additional hematologic/lymphatic complaints Allergic/Immunologic: Reports no additional allergic/immunologic complaints Reports system reviewed and no additional complaints, except as documented and Reports Abnormal speech present Physical Exam Vital Signs: Vital Signs: Last Vital Signs Temp 98.3 F 04/06/21 01:36 Pulse 98 04/06/21 01:36 Resp 16 04/06/21 01:36 BP 97/45 L 04/06/21 01:36 Pulse Ox 96 04/06/21 01:36 Body Mass Index 21.6 Vital signs have been reviewed as appeared to be correct. Blood pressure normal. Heart rate normal. Respiration rate normal. Temperature normal. Oxygen saturation normal. Appearance: Alert. Oriented X3. No acute distress. Head: Normal external exam. Normocephalic. Atraumatic. No Arriaga signs noted. No raccoon eyes noted Eyes: PERRLA. EOMI. Conjunctiva and sclera normal. Eyelids normal. ENT: TM's Normal. Pharynx normal. Uvula midline. Moist mucous membranes. No trismus noted. No drooling noted. No muffled voice noted. Neck: Normal inspection. Neck supple. FROM. No adenopathy. Thyroid Normal. No meningeal signs. No neck mass noted. CVS: Normal heart rate and rhythm. Heart sound normal. No murmurs noted. Pulses normal throughout. Respiratory: No respiratory distress. Painless inspiration. Breath sounds normal. No wheezes/rales/rhonchi noted. Chest nontender. No accessory muscle usage noted or decreased air movement noted. Abdomen: Soft and nontender. Bowel sounds normal in all 4 quadrants. No distention noted. No organomegaly noted. No visible injury noted. Back: No CVA tenderness. Full range of motion noted. Skin: Skin warm and dry. Normal skin color. Normal skin turgor. No rashes/lesions/lacerations noted. Extremities: No lower extremity edema. Extremities exhibit normal range of motion. Extremities nontender. Neuro: Oriented X 3. Cranial nerve exam: II-XII are grossly intact No motor deficit. No sensory deficit. Reflexes normal. Course Course Course Narrative: 75-year-old female came in with abdominal pain, patient had an extensive urological history came in with abdominal pain, patient with UTI and meet criteria for SIRS, patient not and sepsis or septic shock. Start the patient on IV antibiotic MDM - Abdominal Pain Medical Records Attestation: I reviewed the patient's medical records. Lab Data Attestation: I reviewed the patient's lab results. Result diagrams: 04/06/21 00:00 04/06/21 00:52 Labs: Lab Results 04/05/21 04/05/21 04/06/21 Range/Units 22:26 23:59 00:00 WBC 21.9 H (4.8-10.8) X10*3/uL RBC 2.89 L (4.20-5.50) X10*6/uL Hgb 9.0 L (12.0-16.0) g/dl Hct 29.0 L (37-47) % MCV 100.3 H (80-98) fL MCH 31.1 (27.0-33.0) pg MCHC 31.0 (31.0-35.0) g/dl RDW 13.8 (11.0-16.0) % Plt Count 389 D (160-400) X10*3/uL MPV 9.1 L (9.4-12.3) fL Immature Gran % (Auto) 0.9 H (0.0-0.4) % Neut % (Auto) 84.1 H (45-73) % Lymph % (Auto) 6.9 L (20-40) % [place] % (Auto) 5.6 (2-11) % Eos % (Auto) 2.2 (0-4) % Baso % (Auto) 0.3 (0-2) % Lymph # (Auto) 1.5 (1.2-4.9) X10*3/uL [place] # (Auto) 1.2 (0.1-1.2) X10*3/uL Eos # (Auto) 0.5 H (0.0-0.4) X10*3/uL Baso # (Auto) 0.1 (0.0-0.2) X10*3/uL Abs Immat Gran (auto) 0.19 H (0.00-0.03) X10*3/uL Absolute Neuts (auto) 18.4 H (2.0-8.3) X10*3/uL Absolute Nucleated RBC 0.000 (0.0-0.012) X10*3/uL Nucleated RBC % (auto) 0.0 (0.0-0.2) /100WBC Sodium (135-145) mmol/L Potassium (3.3-5.1) mmol/L Chloride (96-108) mmol/L Carbon Dioxide (22-29) mmol/L Anion Gap (12-20) BUN (9-16) mg/dL Creatinine (0.5-1.4) mg/dL Estim Creat Clear Calc Estimated GFR Random Glucose (60-115) mg/dL Lactic Acid 0.9 (0.5-2.0) mmol/L Calcium (8.4-10.2) mg/dL Total Bilirubin (0.0-1.0) mg/dL Direct Bilirubin (0.0-0.5) mg/dL AST (5-31) U/L ALT (0-31) U/L Alkaline Phosphatase (39-117) U/L Total Protein (6.5-8.0) g/dL Albumin (3.5-5.0) g/dL Lipase (8-78) U/L Urine Color BROWN Urine Appearance TURBID Urine pH 8.5 H (5.0-8.0) Ur Specific [place] 1.020 (1.005-1.025) Urine Protein 3+ H (NEG-TRACE) MG/DL Urine Glucose (UA) NEG (NEG) MG/DL Urine Ketones NEG (NEG) MG/DL Urine Blood 3+ H (NEG) Urine Nitrite POS H (NEG) Ur Leukocyte Esterase 3+ H (NEG) Urine RBC 5-9 H (0) /HPF Urine WBC TNTC H (0-4) /HPF Ur Squamous Epith Cells 1+ /LPF Urine Bacteria 2+ /LPF 04/06/21 Range/Units 00:52 WBC (4.8-10.8) X10*3/uL RBC (4.20-5.50) X10*6/uL Hgb (12.0-16.0) g/dl Hct (37-47) % MCV (80-98) fL MCH (27.0-33.0) pg MCHC (31.0-35.0) g/dl RDW (11.0-16.0) % Plt Count (160-400) X10*3/uL MPV (9.4-12.3) fL Immature Gran % (Auto) (0.0-0.4) % Neut % (Auto) (45-73) % Lymph % (Auto) (20-40) % [place] % (Auto) (2-11) % Eos % (Auto) (0-4) % Baso % (Auto) (0-2) % Lymph # (Auto) (1.2-4.9) X10*3/uL [place] # (Auto) (0.1-1.2) X10*3/uL Eos # (Auto) (0.0-0.4) X10*3/uL Baso # (Auto) (0.0-0.2) X10*3/uL Abs Immat Gran (auto) (0.00-0.03) X10*3/uL Absolute Neuts (auto) (2.0-8.3) X10*3/uL Absolute Nucleated RBC (0.0-0.012) X10*3/uL Nucleated RBC % (auto) (0.0-0.2) /100WBC Sodium 139 (135-145) mmol/L Potassium 5.1 (3.3-5.1) mmol/L Chloride 101 (96-108) mmol/L Carbon Dioxide 26 (22-29) mmol/L Anion Gap 17 (12-20) BUN 29 H (9-16) mg/dL Creatinine 4.84 H* (0.5-1.4) mg/dL Estim Creat Clear Calc 8.5 Estimated GFR 9 Random Glucose 82 (60-115) mg/dL Lactic Acid (0.5-2.0) mmol/L Calcium 10.1 (8.4-10.2) mg/dL Total Bilirubin 0.5 (0.0-1.0) mg/dL Direct Bilirubin 0.2 (0.0-0.5) mg/dL AST 9 D (5-31) U/L ALT 6 (0-31) U/L Alkaline Phosphatase 141 H D (39-117) U/L Total Protein 6.2 L (6.5-8.0) g/dL Albumin 3.4 L (3.5-5.0) g/dL Lipase 32 (8-78) U/L Urine Color Urine Appearance Urine pH (5.0-8.0) Ur Specific [place] (1.005-1.025) Urine Protein (NEG-TRACE) MG/DL Urine Glucose (UA) (NEG) MG/DL Urine Ketones (NEG) MG/DL Urine Blood (NEG) Urine Nitrite (NEG) Ur Leukocyte Esterase (NEG) Urine RBC (0) /HPF Urine WBC (0-4) /HPF Ur Squamous Epith Cells /LPF Urine Bacteria /LPF Imaging Data CT scan - abdomen: Radiologist's impression: 1. Similar appearance of the right posterior renal subcapsular hematoma. Perinephric stranding again noted which is somewhat decreased from prior. 2. Bilateral ureteral stents remain in place. Similar soft tissue nodularity along the distal ureter. 3. No acute inflammatory changes of the abdomen or pelvis. 4. Similar appearance of the lung bases. Nodular opacities at the left base are without significant change. Discharge Plan Discharge Clinical Impression: Acute UTI, SIRS (systemic inflammatory response syndrome) Patient Disposition: Admitted As Inpatient [facility] Past Medical History Medical History Abdominal pain Arrhythmia Arthritis AV fistula Bipolar 1 disorder Bladder cancer Bowel obstruction Breast cancer Bronchopneumonia Cancer Chronic nausea COPD (chronic obstructive pulmonary disease) COVID-19 vaccine administered Dialysis patient Diarrhea Dysphagia ESRD (end stage renal disease) History of 2018 novel coronavirus disease (COVID-19) Hx of hypotension Hx of radiation therapy Hypothyroidism Invasive ductal carcinoma of breast Lab test negative for COVID-19 virus Lab test positive for detection of COVID-19 virus MSSA bacteremia Paroxysmal A-fib Poor appetite Positive FIT (fecal immunochemical test) Pulmonary emboli Renal failure SBO (small bowel obstruction) Thyroid disease Vomiting Wears dentures Surgical History History of abdominal surgery History of appendectomy History of back surgery History of bladder surgery (~06/2020) History of cholecystectomy History of esophagogastroduodenoscopy (EGD) History of hand surgery History of lumpectomy of left breast History of lumpectomy of right breast History of tonsillectomy Hx of colonoscopy Hx of foot surgery Family History Family History Father Dementia Mother Bipolar 1 disorder Brother Heart attack Other Mental health disorder Social History Social History Household Members: Spouse Housing: House Are you a primary care coordinator to a significant other at home: No Do you presently have visiting nurse or other home services: Yes Alcohol intake: never Patient Tobacco Use Status: Former Tobacco user Quit Date: 2015 Tobacco use type: Cigarette Cigarette Packs Per Day: 1.5 Cigarettes Per Day: 30.0 Years Smoked: 50 e-Cigarette/Vaping Use: Never Used Second Hand Smoke Exposure: No Advance Directives: Yes Advance Directives on File: Yes Advance Directives Date on File: 01/23/21 service: No Current occupational status: disabled
[2021-04-06] VITALS (9 sets, daily range): BP systolic 95–120; BP diastolic 45–63; PULSE 83–98; RESP 16–20; TEMP 36.1–36.9; O2SAT 94–99
[2021-04-06 00:07] LABS: MANUAL DIFF FLAG NO
[2021-04-06 00:12] LABS: Basophils Absolute Auto 0.1 X10*3/uL (0.0-0.2); Basophils Percent Auto 0.3 % (0-2); Eosinophils Absolute Auto 0.5 X10*3/uL (0.0-0.4); Eosinophils Percent Auto 2.2 % (0-4); Imm Gran Abs Auto 0.19 X10*3/uL (0.00-0.03); Imm Gran Pct Auto 0.9 % (0.0-0.4); Lymphocytes Absolute Auto 1.5 X10*3/uL (1.2-4.9); Lymphocytes Percent Auto 6.9 % (20-40); Mean Corpuscular Hemoglobin 31.1 pg (27.0-33.0); Mean Corpuscular Volume 100.3 fL (80-98); Mean Platelet Volume 9.1 fL (9.4-12.3); Monocytes Absolute Auto 1.2 X10*3/uL (0.1-1.2); Monocytes Percent Auto 5.6 % (2-11); Neutrophils Absolute Auto 18.4 X10*3/uL (2.0-8.3); Neutrophils Percent Auto 84.1 % (45-73); Platelet Count 389 X10*3/uL (160-400); Red Blood Count 2.89 X10*6/uL (4.20-5.50); Red Cell Distribution Width 13.8 % (11.0-16.0); White Blood Count 21.9 X10*3/uL (4.8-10.8)
[2021-04-06] MEDS: ondansetron HCL 4 MG/2 ML VIAL IVPUSH (00:24)
[2021-04-06] MEDS: Morphine Sulfate 2 MG/ML CARTRIDGE 1 MG IVPUSH (00:26)
[2021-04-06 00:28] LABS: Lactic Acid 0.9 mmol/L (0.5-2.0)
[2021-04-06 01:30] LABS: Influenza A PCR NEGATIVE (Negative); Influenza B PCR NEGATIVE (Negative); Resp Syncy Virus RNA Qual PCR NEGATIVE (Negative); SARS COV2 PCR INHOUSE NEGATIVE (Negative)
[2021-04-06] MEDS: cefTRIAXone sodium 1 GM in 0.9 % Sodium Chloride 50 ML IV (01:32)
[2021-04-06 01:52] LABS: Alanine Aminotransferase 6 U/L (0-31); Albumin Level 3.4 g/dL (3.5-5.0); Alkaline Phosphatase 141 U/L (39-117); Anion Gap 17 (12-20); Aspartate Amino Transferase 9 U/L (5-31); Bilirubin Direct 0.2 mg/dL (0.0-0.5); Bilirubin Total 0.5 mg/dL (0.0-1.0); Blood Urea Nitrogen 29 mg/dL (9-16); Calcium 10.1 mg/dL (8.4-10.2); Carbon Dioxide 26 mmol/L (22-29); Chloride 101 mmol/L (96-108); Creatinine Clr Calc Pharmacy 8.5; Estimated Glomerular Filt Rate 9; Glucose Random 82 mg/dL (60-115); Lipase 32 U/L (8-78); Potassium 5.1 mmol/L (3.3-5.1); Sodium 139 mmol/L (135-145); Total Protein 6.2 g/dL (6.5-8.0)
--- NOTE | 2021-04-06 03:52 | PC.NURSE ---
pt requesting medication for pain, this nurse informed pt she has Tylenol ordered prn but pt is requesting stronger pain medication. hospitalist notified. pt also requesting to take her night time meds and stated she cant sleep without them. this nurse explained if the medications are taken for sleep/at night they might make her sleep through the morning if given at this time. pt wants night time medications anyway. hospitalist notified.
--- NOTE | 2021-04-06 04:23 | PC.NURSE ---
pt has been incontinent of stool/diarrhea three times in the last 30min. this nurse cleaned pt and changed bed linens three times. pt requesting anti-dairrheal medication. hospitalist notified.
[2021-04-06] MEDS: clonazePAM 0.5 MG TABLET 1.5 MG PO ×2 (05:25→20:40)
[2021-04-06] MEDS: lamoTRIgine 100 MG TABLET 300 MG PO ×2 (05:26→20:41)
--- NOTE | 2021-04-06 05:50 | P.HPHOSP_ITS ---
History of Present Illness Date of Service: 04/06/21 75-year-old female with history of ureteral cancer, status post ureteral stents, also with history of AFib, end-stage renal disease on hemodialysis, hypothyroidism, who presented with right-sided pain, nausea. History is from the patient and from ED notes. Patient dose that she started having right-sided abdominal pain in the last 24 hours, she endorses some nausea. When she got to the hospital, she also endorses that she started having some diarrhea as well. I suspect the patient is not the best historian. Otherwise, she denies chest pain, shortness of breath, fever chills, vomiting. Of note, the patient was recently discharged from this hospital on 03/29/2021 after being treated for renal hematoma. In the ED, vitals were unremarkable. Labs were pertinent for the following: WBC 21.9, hemoglobin 9.0, creatinine was elevated at 4.84 (in the setting of end-stage renal disease), urine was positive for UTI. CT of the abdomen/pelvis without contrast did show some perinephric stranding again, somewhat decreased from prior (please see official report for full details). In the ED, the patient was treated with ceftriaxone. The patient is being admitted for UTI, leukocytosis. Review of Systems Constitutional: Constitutional: Denies chills, Denies fatigue, Denies fever(s), Denies headache(s), Denies weakness and Denies weight loss Eyes: Eyes: Denies blurry vision, Denies change in vision, Denies diplopia and Denies loss of vision ENT: Denies dysphagia, Denies vertigo, Denies dizziness, Denies headache(s), Denies hearing loss, Denies lip swelling and Denies sore throat Cardiovascular: Cardiovascular: Denies chest pain, Denies leg edema, Denies lightheadedness, Denies palpitations and Denies dyspnea Respiratory: Respiratory: Denies no additional respiratory complaints, Denies cough, Denies dyspnea and Denies wheezing Gastrointestinal: Gastrointestinal: Reports abdominal pain, Denies coffee ground emesis, Denies constipation, Denies dysphagia, Reports diarrhea, Reports nausea and Denies vomiting Genitourinary: Genitourinary: Denies dysuria Musculoskeletal: Musculoskeletal: Denies arthralgias, Denies muscle weakness, Denies numbness and Denies tingling Integumentary/Breasts: Skin/Breast: Denies bleeding lesions, Denies new lesions and Denies rash Neurologic: Denies vertigo, Denies dizziness, Denies headache(s), Denies loss of vision, Denies numbness, Denies tingling and Denies weakness Psychiatric: Psychiatric: Denies anxiety and Denies depression Endocrine: Endocrine: Denies cold intolerance, Denies fatigue, Denies heat intolerance and Denies palpitations Hematologic/Lymphatic: Hematologic/Lymphatic: Denies easy bleeding, Denies easy bruising and Denies lymphadenopathy Allergic/Immunologic: Allergic/Immunologic: Denies lip swelling and Denies wheezing [facility] Medical History Abdominal pain Arrhythmia Arthritis AV fistula Bipolar 1 disorder Bladder cancer Bowel obstruction Breast cancer Bronchopneumonia Cancer Chronic nausea COPD (chronic obstructive pulmonary disease) COVID-19 vaccine administered Dialysis patient Diarrhea Dysphagia ESRD (end stage renal disease) History of 2019 novel coronavirus disease (COVID-19) Hx of hypotension Hx of radiation therapy Hypothyroidism Invasive ductal carcinoma of breast Lab test negative for COVID-19 virus Lab test positive for detection of COVID-19 virus MSSA bacteremia Paroxysmal A-fib Poor appetite Positive FIT (fecal immunochemical test) Pulmonary emboli Renal failure SBO (small bowel obstruction) Thyroid disease Vomiting Wears dentures Family History Father Dementia Mother Bipolar 1 disorder Brother Heart attack Other Mental health disorder Family history: reviewed and not pertinent Surgical History History of abdominal surgery History of appendectomy History of back surgery History of bladder surgery (~06/2020) History of cholecystectomy History of esophagogastroduodenoscopy (EGD) History of hand surgery History of lumpectomy of left breast History of lumpectomy of right breast History of tonsillectomy Hx of colonoscopy Hx of foot surgery Social History Household Members: Spouse Housing: House Are you a primary personal care attendant to a significant other at home: No Do you presently have visiting nurse or other home services: Yes Alcohol intake: never Patient Tobacco Use Status: Former Tobacco user Quit Date: 2015 Tobacco use type: Cigarette Cigarette Packs Per Day: 1.5 Cigarettes Per Day: 30.0 Years Smoked: 50 e-Cigarette/Vaping Use: Never Used Second Hand Smoke Exposure: No Advance Directives: Yes Advance Directives on File: Yes Advance Directives Date on File: 01/23/21 service: No Current occupational status: disabled Meds Allergies Allergy/AdvReac Type Severity Reaction Status Date / Time adhesive tape Allergy Intermediate Blister Verified 03/15/21 16:05 aspirin Allergy Intermediate RASH Verified 03/15/21 16:05 benztropine Allergy Intermediate RASH Verified 03/15/21 16:05 NSAIDS (Non-Steroidal Allergy Intermediate RASH Verified 03/15/21 16:05 Anti-Inflamma ziprasidone Allergy Unknown UNKNOWN Verified 03/15/21 16:05 doxycycline AdvReac Vomiting Verified 03/15/21 16:05 oxycodone AdvReac Anaphylaxis Verified 04/05/21 23:35 Active Medications: Current Medications Generic Name Dose Route Start Last Admin Trade Name Freq PRN Reason Stop Dose Admin Acetaminophen 650 mg 04/06/21 03:14 Acetaminophen 325 Mg Tablet PO Q6H PRN Pain, Mild (Pain Scale 1-3) Acetaminophen 650 mg 04/06/21 04:48 Acetaminophen 325 Mg Tablet PO BID PRN Pain (Scale Score 1-3) Albuterol Sulfate 2.5 mg 04/06/21 08:00 Albuterol Sulfate (0.083%) 2.5 Mg/3 Ml Vial.Neb INHALE RBID HERNESTO Clonazepam 1.5 mg 04/06/21 04:50 04/06/21 05:25 Clonazepam 0.5 Mg Tablet PO 1.5 mg BEDTIME HERNESTO Administration Clozapine 250 mg 04/06/21 04:50 Clozapine 25 Mg Tablet PO BEDTIME HERNESTO Dronedarone 400 mg 04/06/21 09:00 Dronedarone Hcl 400 Mg Tablet PO BID HERNESTO Fluticasone/Vilanterol 1 puff 04/06/21 09:00 Fluticasone/Vilanterol 200/25 Blst.W.Dev INHALE DAILY HERNESTO Hydroxyzine HCl 50 mg 04/06/21 04:48 Hydroxyzine Hcl 50 Mg Tablet PO BEDTIME PRN Itching Ceftriaxone Sodium 1 gm/ 50 mls @ 100 mls/hr 04/06/21 23:00 Sodium Chloride IV Q24H HERNESTO Lamotrigine 300 mg 04/06/21 04:50 04/06/21 05:26 Lamotrigine 100 Mg Tablet PO 300 mg BEDTIME [facility] Administration Levothyroxine Sodium 125 mcg 04/06/21 06:00 Levothyroxine Sodium 125 Mcg Tablet PO DAILY@0600 [facility] Melatonin 21 mg 04/06/21 05:03 Melatonin 3 Mg Tablet PO BEDTIME PRN Insomnia Morphine Sulfate 2 mg 04/06/21 04:50 Morphine Sulfate 2 Mg/Ml Cartridge IVPUSH Q3H PRN Pain, Severe (Pain Scale 7-10) Protocol Prochlorperazine Maleate 5 mg 04/06/21 04:48 Prochlorperazine Maleate 5 Mg Tablet PO TID PRN for nausea/vomiting Sevelamer Carbonate 1,600 mg 04/06/21 08:00 Sevelamer Carbonate Tablet 800 Mg Tablet PO TIDWM [facility] Sodium Chloride 3 ml 04/06/21 08:00 0.9 % Sodium Chloride Flush 3 Ml Syringe IVFLUSH QSHIFT [facility] Tamoxifen Citrate 20 mg 04/06/21 09:00 Tamoxifen Citrate 10 Mg Tablet PO DAILY [facility] Home Medications Medication Instructions Recorded Confirmed Last Taken Type clonazepam 1 mg tablet 1.5 mg PO BEDTIME 05/21/20 04/06/21 03/24/21 History lamotrigine 150 mg tablet 300 mg PO BEDTIME 05/21/20 04/06/21 03/24/21 History acetaminophen 325 mg tablet 650 mg PO BID PRN 05/22/20 04/06/21 03/19/21 History fluticasone 500 mcg-salmeterol 50 1 inh INHALATION BID 05/22/20 04/06/21 03/25/21 History mcg/dose blistr powdr for inhalation ([facility]ix[facility] Inhub) sevelamer carbonate 800 mg tablet 1,600 mg PO TIDWM 05/22/20 04/06/21 03/25/21 History melatonin 10 mg capsule 20 mg PO BEDTIME PRN cap 09/06/20 04/06/21 03/20/21 History clozapine 100 mg tablet 250 mg PO BEDTIME 01/04/21 04/06/21 03/24/21 History hydroxyzine pamoate 50 mg capsule 50 mg PO BEDTIME PRN 03/21/21 04/06/21 03/20/21 03:00 History Physical Exam Vital Signs and Narrative: Vital Signs: Last Vital Signs Temp 98.3 F 04/06/21 01:36 Pulse 98 04/06/21 01:36 Resp 16 04/06/21 01:36 BP 97/45 L 04/06/21 01:36 Pulse Ox 96 04/06/21 01:36 Body Mass Index 21.6 Const: General: no acute distress, well developed and alert HENMT: Face and sinus: Yes normal facial exam and Yes face symmetric Mouth: Normal oral and palatal mucosa present and moist mucous membranes Throat: Yes posterior oropharynx normal and Yes tonsils normal Eyes: General: appearance normal, both eyes and all related structures Ali gnment and Position: alignment normal and position normal Sclerae: sclerae normal Pupils: Equal, round and reactive pupils present EOM: EOMs intact bilaterally Neck: Yes normal visual inspection, Yes full ROM and Yes no lymphadenopathy Lymphatic: no lymphadenopathy noted Resp: Effort & Inspection: normal respiratory effort and able to speak in complete sentences Auscultation: clear to auscultation bilaterally, no crackles, no rales, no rhonchi and no wheezes Cardio: Rate: regular rate Rhythm: regular rhythm Heart sounds: S1 normal heart sound present, S2 normal heart sound present, no murmurs and no rubs GI: Inspection: No distended Palpation (GI): Soft to palpation and n ontender Percussion: No tympanic to percussion Auscultation: normal bowel sounds Skin: Rashes: no rashes Trauma: no lacerations or abrasions Wounds: no wounds Neuro: Cranial nerves: Yes CN's II-XII intact bilaterally, Yes Equal, round and reactive pupils present and Yes Bilaterally intact EOM present Extrem: General: Yes full ROM and Yes no pedal edema Psych: Appearance: grossly normal Mental Status: mental status grossly normal Speech and movement: Normal speech and movement present Affect: normal affect Thought process: Normal thought process present Results Labs CBC and Chem 7: 04/06/21 06:36 04/06/21 00:52 Labs: Laboratory Results - last 24 hr 04/05/21 04/05/21 04/06/21 22:26 23:59 00:00 MCV 100.3 H MCH 31.1 MCHC 31.0 RDW 13.8 Plt Count 389 D MPV 9.1 L Immature Gran % (Auto) 0.9 H Neut % (Auto) 84.1 H Lymph % (Auto) 6.9 L [place] % (Auto) 5.6 Eos % (Auto) 2.2 Baso % (Auto) 0.3 Lymph # (Auto) 1.5 [place] # (Auto) 1.2 Eos # (Auto) 0.5 H Baso # (Auto) 0.1 Abs Immat Gran (auto) 0.19 H Absolute Neuts (auto) 18.4 H Absolute Nucleated RBC 0.000 Nucleated RBC % (auto) 0.0 Anion Gap Estim Creat Clear Calc Estimated GFR Random Glucose Lactic Acid 0.9 Calcium Total Bilirubin Direct Bilirubin AST ALT Alkaline Phosphatase Total Protein Albumin Lipase Urine Color BROWN Urine Appearance TURBID Urine pH 8.5 H Ur Specific [place] 1.020 Urine Protein 3+ H Urine Glucose (UA) NEG Urine Ketones NEG Urine Blood 3+ H Urine Nitrite POS H Ur Leukocyte Esterase 3+ H Urine RBC 5-9 H Urine WBC TNTC H Ur Squamous Epith Cells 1+ Urine Bacteria 2+ Coronavirus (PCR) Influenza Type A (PCR) Influenza Type B (PCR) RSV RNA Qual (PCR) 04/06/21 04/06/21 00:41 00:52 MCV MCH MCHC RDW Plt Count MPV Immature Gran % (Auto) Neut % (Auto) Lymph % (Auto) [place] % (Auto) Eos % (Auto) Baso % (Auto) Lymph # (Auto) [place] # (Auto) Eos # (Auto) Baso # (Auto) Abs Immat Gran (auto) Absolute Neuts (auto) Absolute Nucleated RBC Nucleated RBC % (auto) Anion Gap 17 Estim Creat Clear Calc 8.5 Estimated GFR 9 Random Glucose 82 Lactic Acid Calcium 10.1 Total Bilirubin 0.5 Direct Bilirubin 0.2 AST 9 D ALT 6 Alkaline Phosphatase 141 H D Total Protein 6.2 L Albumin 3.4 L Lipase 32 Urine Color Urine Appearance Urine pH Ur Specific [place] Urine Protein Urine Glucose (UA) Urine Ketones Urine Blood Urine Nitrite Ur Leukocyte Esterase Urine RBC Urine WBC Ur Squamous Epith Cells Urine Bacteria Coronavirus (PCR) NEGATIVE Influenza Type A (PCR) NEGATIVE Influenza Type B (PCR) NEGATIVE RSV RNA Qual (PCR) NEGATIVE Imaging Radiologist's Impressions: Impressions Abdomen/Pelvis CT 04/06/21 00:00 IMPRESSION: 1. Similar appearance of the right posterior renal subcapsular hematoma. Perinephric stranding again noted which is somewhat decreased from prior. 2. Bilateral ureteral stents remain in place. Similar soft tissue nodularity along the distal ureter. 3. No acute inflammatory changes of the abdomen or pelvis. 4. Similar appearance of the lung bases. Nodular opacities at the left base are without significant change. Assessment and Plan (1) Acute UTI: Status: Acute (2) Leukocytosis: Status: Acute (3) ESRD (end stage renal disease): Status: Acute (4) Paroxysmal A-fib: Status: Acute (5) Bipolar disorder: Status: Acute (6) Hypothyroidism: Status: Acute (7) Seizure: Status: Acute (8) COPD (chronic obstructive pulmonary disease): Qualifiers: COPD type: chronic bronchitis Chronic bronchitis type: mixed simple and mucopurulent Qualified Code(s): J41.8 - Mixed simple and mucopurulent chronic bronchitis Status: Acute (9) Ureteral cancer: Status: Acute Acute UTI: -continue IV ceftriaxone -CT abdomen did not show any significant worsening (patient does have evidence of prior renal hematoma, as well as perinephric stranding that has decreased from prior; please see official report for full details) -morning team can consider Urology consult (patient does have history of ureteral stents) Leukocytosis: -patient does have significant leukocytosis, with WBC of 21 -treatment of UTI as per above End-stage renal disease on hemodialysis Friday/Friday/Friday: -nephrology consult placed Paroxysmal atrial fibrillation: - continue home medications Bipolar disorder: -continue home medications Hypothyroidism: -continue home medications Seizure disorder: -continue home medications COPD: -continue all medications Ureteral cancer: -noted FEN: Cardiac diet CODE STATUS: FULL CODE DISPO: Admit to Observation Quality Stroke Does the patient have a stroke diagnosis?: No VTE Prior VTE?: No VTE Risk Level:: Medical - moderate - high VTE Device Contraindication: N/A - Device Ordered VTE Drug Contraindication: Treatment Not Indicated
[2021-04-06 06:58] LABS: MANUAL DIFF FLAG NO
[2021-04-06 07:04] LABS: Basophils Absolute Auto 0.1 X10*3/uL (0.0-0.2); Basophils Percent Auto 0.4 % (0-2); Eosinophils Absolute Auto 0.6 X10*3/uL (0.0-0.4); Eosinophils Percent Auto 2.9 % (0-4); Hematocrit 27.3 % (37-47); Hemoglobin 8.5 g/dl (12.0-16.0); Imm Gran Abs Auto 0.18 X10*3/uL (0.00-0.03); Imm Gran Pct Auto 0.9 % (0.0-0.4); Lymphocytes Absolute Auto 1.5 X10*3/uL (1.2-4.9); Lymphocytes Percent Auto 7.8 % (20-40); Mean Corpuscular HGB Conc 31.1 g/dl (31.0-35.0); Mean Corpuscular Hemoglobin 31.4 pg (27.0-33.0); Mean Corpuscular Volume 100.7 fL (80-98); Mean Platelet Volume 9.2 fL (9.4-12.3); Monocytes Absolute Auto 1.2 X10*3/uL (0.1-1.2); Monocytes Percent Auto 6.3 % (2-11); Neutrophils Absolute Auto 15.9 X10*3/uL (2.0-8.3); Neutrophils Percent Auto 81.7 % (45-73); Platelet Count 373 X10*3/uL (160-400); Red Blood Count 2.71 X10*6/uL (4.20-5.50); Red Cell Distribution Width 13.9 % (11.0-16.0); White Blood Count 19.5 X10*3/uL (4.8-10.8)
[2021-04-06 07:39] LABS: Anion Gap 17 (12-20); Blood Urea Nitrogen 35 mg/dL (9-16); Calcium 9.7 mg/dL (8.4-10.2); Carbon Dioxide 24 mmol/L (22-29); Chloride 103 mmol/L (96-108); Creatinine Clr Calc Pharmacy 7.9; Estimated Glomerular Filt Rate 8; Glucose Random 85 mg/dL (60-115); Potassium 5.3 mmol/L (3.3-5.1); Sodium 139 mmol/L (135-145)
--- NOTE | 2021-04-06 08:39 | PC.NURSE ---
This inspector automatic typewriter gave report to receiving ALTAGRACIA Suarez. Pt will be transported by advanced analytics associate.
[2021-04-06] MEDS: Tamoxifen Citrate 10 MG TABLET 20 MG PO (10:35)
[2021-04-06] MEDS: Dronedarone HCl 400 MG TABLET PO ×2 (10:36→20:40)
[2021-04-06] MEDS: 0.9 % Sodium Chloride Flush 3 ML SYRINGE IVFLUSH ×2 (10:36→18:09)
[2021-04-06] MEDS: Levothyroxine Sodium 125 MCG TABLET PO (10:36)
--- NOTE | 2021-04-06 11:07 | PC.NURSE ---
Skin assessment completed today. Patient arrived on Med-Surg unit from ER sitting in diarrhea with some dried to her skin. Patient has small MASD to right upper inner thigh. Pictures taken and placed in chart. EPC cream applied. No other skin issues noted at this time. Will continue to monitor skin.
[2021-04-06] MEDS: Sevelamer Carbonate Tablet 800 MG TABLET 1600 MG PO ×2 (11:08→18:08)
[2021-04-06] MEDS: Morphine Sulfate 2 MG/ML CARTRIDGE IVPUSH ×2 (11:09→16:17)
--- NOTE | 2021-04-06 13:21 | P.CONNP_ITS ---
History of Present Illness Reason for Consult Consult date: 04/06/21 Reason for consult: esrd Requesting physician: Edel Olmos Chief Complaint Chief complaint: UTI, Leukocytosis History of Present Illness Narrative: Asked to see PT re: HD needs as normally HD mwf. Adm w R sided flank pain and ques UTI. Overall feeling better. Recent hosp for GH and s/p ureteral stent and Dx with yreteral CA. Overall feeling better Review of Systems Review of Systems All other systems are reviewed and are negative Constitutional: Reports as per HPI and Reports no additional constitutional complaints Eyes: Reports as per HPI and Reports no additional eye complaints Reports system reviewed and no additional complaints, except as documented Cardiovascular: Reports as per HPI and Reports no additional cardiovascular complaints Respiratory: Reports as per HPI and Reports no additional respiratory complaints Gastrointestinal: Reports as per HPI and Reports no additional gastrointestinal complaints Genitourinary: Reports no additional female genitourinary complaints Musculoskeletal: Reports no additional musculoskeletal complaints Skin/Breast: Reports system reviewed and no additional complaints, except as docu Psychiatric: Reports no additional psychiatric complaints Endocrine: Reports no additional endocrine complaints Hematologic/Lymphatic: Reports no additional hematologic/lymphatic complaints Allergic/Immunologic: Reports no additional allergic/immunologic complaints Reports system reviewed and no additional complaints, except as documented and Reports Abnormal speech present Constitutional: Denies chills, Denies fatigue, Denies fever(s), Denies headache(s), Denies weakness and Denies weight loss Eyes: Denies blurry vision, Denies change in vision, Denies diplopia and Denies loss of vision Denies dysphagia, Denies vertigo, Denies dizziness, Denies headache(s), Denies hearing loss, Denies lip swelling and Denies sore throat Cardiovascular: Denies chest pain, Denies leg edema, Denies lightheadedness, Denies palpitations and Denies dyspnea Respiratory: Denies no additional respiratory complaints, Denies cough, Denies dyspnea and Denies wheezing Gastrointestinal: Reports abdominal pain, Denies coffee ground emesis, Denies constipation, Denies dysphagia, Reports diarrhea, Reports nausea and Denies vomiting Musculoskeletal: Denies arthralgias, Denies muscle weakness, Denies numbness and Denies tingling Skin/Breast: Denies bleeding lesions, Denies new lesions and Denies rash Denies vertigo, Denies dizziness, Denies headache(s), Denies loss of vision, Denies numbness, Denies tingling and Denies weakness Psychiatric: Denies anxiety and Denies depression Endocrine: Denies cold intolerance, Denies fatigue, Denies heat intolerance and Denies palpitations Hematologic/Lymphatic: Denies easy bleeding, Denies easy bruising and Denies lymphadenopathy Allergic/Immunologic: Denies lip swelling and Denies wheezing PMFSH Past Medical History Medical History Abdominal pain Arrhythmia Arthritis AV fistula Bipolar 1 disorder Bladder cancer Bowel obstruction Breast cancer Bronchopneumonia Cancer Chronic nausea COPD (chronic obstructive pulmonary disease) COVID-19 vaccine administered Dialysis patient Diarrhea Dysphagia ESRD (end stage renal disease) History of 2019 novel coronavirus disease (COVID-19) Hx of hypotension Hx of radiation therapy Hypothyroidism Invasive ductal carcinoma of breast Lab test negative for COVID-19 virus Lab test positive for detection of COVID-19 virus MSSA bacteremia Paroxysmal A-fib Poor appetite Positive FIT (fecal immunochemical test) Pulmonary emboli Renal failure SBO (small bowel obstruction) Thyroid disease Vomiting Wears dentures Family History Family History Father Dementia Mother Bipolar 1 disorder Brother Heart attack Other Mental health disorder Family history: reviewed and not pertinent Surgical History Surgical History History of abdominal surgery History of appendectomy History of back surgery History of bladder surgery (~06/2020) History of cholecystectomy History of esophagogastroduodenoscopy (EGD) History of hand surgery History of lumpectomy of left breast History of lumpectomy of right breast History of tonsillectomy Hx of colonoscopy Hx of foot surgery Social History Social History Household Members: Spouse Housing: House Are you a primary care transition mgr to a significant other at home: No Do you presently have visiting nurse or other home services: Yes Alcohol intake: never Patient Tobacco Use Status: Former Tobacco user Quit Date: 4 years ago Tobacco use type: Cigarette Cigarette Packs Per Day: 1.5 Cigarettes Per Day: 30.0 Years Smoked: 50 e-Cigarette/Vaping Use: Never Used Second Hand Smoke Exposure: No Advance Directives: Yes Advance Directives on File: Yes Advance Directives Date on File: 01/23/21 service: No Current occupational status: disabled Meds Allergies Allergy/AdvReac Type Severity Reaction Status Date / Time adhesive tape Allergy Intermediate Blister Verified 03/15/21 16:05 aspirin Allergy Intermediate RASH Verified 03/15/21 16:05 benztropine Allergy Intermediate RASH Verified 03/15/21 16:05 NSAIDS (Non-Steroidal Allergy Intermediate RASH Verified 03/15/21 16:05 Anti-Inflamma ziprasidone Allergy Unknown UNKNOWN Verified 03/15/21 16:05 doxycycline AdvReac Vomiting Verified 03/15/21 16:05 oxycodone AdvReac Anaphylaxis Verified 04/05/21 23:35 Active Medications: Current Medications Generic Name Dose Route Start Last Admin Trade Name Freq PRN Reason Stop Dose Admin Acetaminophen 650 mg 04/06/21 03:14 Acetaminophen 325 Mg Tablet PO Q6H PRN Pain, Mild (Pain Scale 1-3) Acetaminophen 650 mg 04/06/21 04:48 Acetaminophen 325 Mg Tablet PO BID PRN Pain (Scale Score 1-3) Albuterol Sulfate 2.5 mg 04/06/21 08:00 04/06/21 12:01 Albuterol Sulfate (0.083%) 2.5 Mg/3 Ml Vial.Neb INHALE Not Given RBID HERNESTO Clonazepam 1.5 mg 04/06/21 04:50 04/06/21 05:25 Clonazepam 0.5 Mg Tablet PO 1.5 mg BEDTIME HERNESTO Administration Clozapine 200 mg 04/06/21 21:00 Clozapine 100 Mg Tablet PO BEDTIME HERNESTO Clozapine 50 mg 04/06/21 21:00 Clozapine 25 Mg Tablet PO BEDTIME HERNESTO Dronedarone 400 mg 04/06/21 09:00 04/06/21 10:36 Dronedarone Hcl 400 Mg Tablet PO 400 mg BID HERNESTO Administration Fluticasone/Vilanterol 1 puff 04/06/21 09:00 04/06/21 09:43 Fluticasone/Vilanterol 200/25 Blst.W.Dev INHALE Not Given DAILY HERNESTO Hydroxyzine HCl 50 mg 04/06/21 04:48 Hydroxyzine Hcl 50 Mg Tablet PO BEDTIME PRN Itching Ceftriaxone Sodium 1 gm/ 50 mls @ 100 mls/hr 04/06/21 23:00 Sodium Chloride IV Q24H HERNESTO Lamotrigine 300 mg 04/06/21 04:50 04/06/21 05:26 Lamotrigine 100 Mg Tablet PO 300 mg BEDTIME HERNESTO Administration Levothyroxine Sodium 125 mcg 04/06/21 06:00 04/06/21 10:36 Levothyroxine Sodium 125 Mcg Tablet PO 125 mcg DAILY@0600 HERNESTO Administration Melatonin 21 mg 04/06/21 05:03 Melatonin 3 Mg Tablet PO BEDTIME PRN Insomnia Morphine Sulfate 2 mg 04/06/21 04:50 04/06/21 11:09 Morphine Sulfate 2 Mg/Ml Cartridge IVPUSH 2 mg Q3H PRN Administration Pain, Severe (Pain Scale 7-10) Protocol Prochlorperazine Maleate 5 mg 04/06/21 04:48 Prochlorperazine Maleate 5 Mg Tablet PO TID PRN for nausea/vomiting Sevelamer Carbonate 1,600 mg 04/06/21 08:00 04/06/21 11:08 Sevelamer Carbonate Tablet 800 Mg Tablet PO 1,600 mg TIDWM HERNESTO Administration Sodium Chloride 3 ml 04/06/21 08:00 04/06/21 10:36 0.9 % Sodium Chloride Flush 3 Ml Syringe IVFLUSH 3 ml QSHIFT HERNESTO Administration Tamoxifen Citrate 20 mg 04/06/21 09:00 04/06/21 10:35 Tamoxifen Citrate 10 Mg Tablet PO 20 mg DAILY HERNESTO Administration Home Medications Medication Instructions Recorded Confirmed Last Taken Type clonazepam 1 mg tablet 1.5 mg PO BEDTIME 05/21/20 04/06/21 03/24/21 History lamotrigine 150 mg tablet 300 mg PO BEDTIME 05/21/20 04/06/21 03/24/21 History acetaminophen 325 mg tablet 650 mg PO BID PRN 05/22/20 04/06/21 03/19/21 History fluticasone 500 mcg-salmeterol 50 1 inh INHALATION BID 05/22/20 04/06/21 03/25/21 History mcg/dose blistr powdr for inhalation (Wixela Inhub) sevelamer carbonate 800 mg tablet 1,600 mg PO TIDWM 05/22/20 04/06/21 03/25/21 History melatonin 10 mg capsule 20 mg PO BEDTIME PRN cap 09/06/20 04/06/21 03/20/21 History clozapine 100 mg tablet 250 mg PO BEDTIME 0504/06/21 03/24/21 History hydroxyzine pamoate 50 mg capsule 50 mg PO BEDTIME PRN 03/21/21 04/06/21 03/20/21 03:00 History Physical Exam Vital Signs: Last Vital Signs Temp 98.1 F 04/06/21 11:39 Pulse 83 04/06/21 11:39 Resp 17 04/06/21 11:39 BP 108/52 L 04/06/21 11:39 Pulse Ox 97 04/06/21 11:39 Body Mass Index 21.6 Const General: no acute distress, well developed and alert [facility] Face and sinus: Yes normal facial exam and Yes face symmetric Mouth: Normal oral and palatal mucosa present and moist mucous membranes Throat: Yes posterior oropharynx normal and Yes tonsils normal Eyes General: appearance normal, both eyes and all related structures Alignment and Position: alignment normal and position normal Sclerae: sclerae normal Pupils: Equal, round and reactive pupils present EOM: EOMs intact bilaterally Neck Neck: Yes normal visual inspection, Yes full ROM and Yes no lymphadenopathy Lymphatic: no lymphadenopathy noted Chest Chest palpation & inspection: normal inspection of the chest, no tenderness and No rash Resp Effort & Inspection: normal respiratory effort and able to speak in complete sentences Auscultation: clear to auscultation bilaterally, no crackles, no rales, no rhonchi and no wheezes Cardio Rate: regular rate Rhythm: regular rhythm Heart sounds: S1 normal heart sound present, S2 normal heart sound present, no murmurs and no rubs GI Inspection: No distended Palpation (GI): Soft to palpation and nontender Percussion: No tympanic to percussion Auscultation: normal bowel sounds Skin Rashes: no rashes Trauma: no lacerations or abrasions Wounds: no wounds Neuro Cranial nerves: Yes CN's II-XII intact bilaterally, Yes Equal, round and reactive pupils present and Yes Bilaterally intact EOM present Extrem General: Yes full ROM and Yes no pedal edema Psych Appearance: grossly normal Mental Status: mental status grossly normal Speech and movement: Normal speech and movement present Affect: normal affect Thought process: Normal thought process present Results Lab Results Result Diagrams: 04/06/21 06:36 04/06/21 06:36 Lab results: Chemistry 04/06/21 04/06/21 00:52 06:36 Sodium 139 139 Potassium 5.1 5.3 H Carbon Dioxide 26 24 BUN 29 H 35 H Creatinine 4.84 H* 5.24 H* Calcium 10.1 9.7 Hematology 04/06/21 04/06/21 00:00 06:36 WBC 21.9 H 19.5 H Hgb 9.0 L 8.5 L Plt Count 389 D 373 Urinalysis 04/05/21 22:26 Urine Color BROWN Urine Appearance TURBID Urine pH 8.5 H Ur Specific [place] 1.020 Urine Protein 3+ H Urine Glucose (UA) NEG Urine Ketones NEG Urine Blood 3+ H Urine Nitrite POS H Ur Leukocyte Esterase 3+ H Urine RBC 5-9 H Urine WBC TNTC H Ur Squamous Epith Cells 1+ Assessment and Plan (1) Acute UTI: Status: Acute (2) Leukocytosis: Status: Acute (3) ESRD (end stage renal disease): Status: Acute 1. ESRD : mwf HD 2. R Flank Pain: ques UTI vs other 3. Anemia 4. Ureteral CA REC: cont HD 3x/wk; ABX as ordered; wepo as ordered (4) Paroxysmal A-fib: Status: Acute (5) Bipolar disorder: Status: Acute (6) Hypothyroidism: Status: Acute (7) Seizure: Status: Acute (8) COPD (chronic obstructive pulmonary disease): Qualifiers: COPD type: chronic bronchitis Chronic bronchitis type: mixed simple and mucopurulent Qualified Code(s): J41.8 - Mixed simple and mucopurulent chronic bronchitis Status: Acute (9) Ureteral cancer: Status: Acute Acute UTI: -continue IV ceftriaxone -CT abdomen did not show any significant worsening (patient does have evidence of prior renal hematoma, as well as perinephric stranding that has decreased from prior; please see official report for full details) -morning team can consider Urology consult (patient does have history of ureteral stents) Leukocytosis: -patient does have significant leukocytosis, with WBC of 21 -treatment of UTI as per above End-stage renal disease on hemodialysis Friday/Friday/Friday: -nephrology consult placed Paroxysmal atrial fibrillation: - continue home medications Bipolar disorder: -continue home medications Hypothyroidism: -continue home medications Seizure disorder: -continue home medications COPD: -continue all medications Ureteral cancer: -noted FEN: Cardiac diet CODE STATUS: FULL CODE DISPO: Admit to Observation Procedures Date of Service Date of Service: 04/06/21
--- NOTE | 2021-04-06 13:51 | MHC.CLN ---
NUTRITION/DIET PATIENT RECEIVED HEMODIALYSIS THREE TIMES WEEKLY. DIET CHANGED FOR ESRD WITH HEMODIALYSIS TO 2 GRAM SODIUM, LOW PHOSPHOROUS, LOW POTASSIUM.
--- NOTE | 2021-04-06 16:21 | MHC.CM.PN ---
PT RESIDES WITH HER WHO ALSO PROVIDES ASSISTANCE NEEDED. PT IS ACTIVE WITH [facility] AND GOES TO HD AT [facility] ON [address] . OBS NOTICE AND CONTACT CARD LEFT AT BEDSIDE, PT SLEEPING CURRENT DC PLAN IS HOME WITH RESUMPTION OF SERVICES
[2021-04-06] MEDS: Albuterol Sulfate (0.083%) 2.5 MG/3 ML VIAL.NEB INHALE (20:15)
[2021-04-06] MEDS: cloZAPine 25 MG TABLET 50 MG PO (20:41)
[2021-04-06] MEDS: cloZAPine 100 MG TABLET 200 MG PO (20:41)
[2021-04-07] VITALS (8 sets, daily range): BP systolic 90–108; BP diastolic 46–75; PULSE 76–96; RESP 16–20; TEMP 36.1–36.7; O2SAT 88–97
[2021-04-07] MEDS: cefTRIAXone sodium 1 GM in 0.9 % Sodium Chloride 50 ML IV ×2 (00:48→22:24)
[2021-04-07] MEDS: 0.9 % Sodium Chloride Flush 3 ML SYRINGE IVFLUSH ×4 (00:48→20:46)
[2021-04-07 06:18] LABS: MANUAL DIFF FLAG NO
[2021-04-07] MEDS: Levothyroxine Sodium 125 MCG TABLET PO (06:47)
[2021-04-07 07:01] LABS: Basophils Absolute Auto 0.1 X10*3/uL (0.0-0.2); Basophils Percent Auto 0.4 % (0-2); Eosinophils Absolute Auto 0.6 X10*3/uL (0.0-0.4); Eosinophils Percent Auto 3.5 % (0-4); Hematocrit 27.6 % (37-47); Hemoglobin 8.5 g/dl (12.0-16.0); Imm Gran Abs Auto 0.16 X10*3/uL (0.00-0.03); Lymphocytes Absolute Auto 1.7 X10*3/uL (1.2-4.9); Lymphocytes Percent Auto 10.3 % (20-40); Mean Corpuscular HGB Conc 30.8 g/dl (31.0-35.0); Mean Corpuscular Hemoglobin 30.9 pg (27.0-33.0); Mean Corpuscular Volume 100.4 fL (80-98); Mean Platelet Volume 9.6 fL (9.4-12.3); Monocytes Percent Auto 6.1 % (2-11); Neutrophils Absolute Auto 13.1 X10*3/uL (2.0-8.3); Neutrophils Percent Auto 78.7 % (45-73); Platelet Count 324 X10*3/uL (160-400); Red Blood Count 2.75 X10*6/uL (4.20-5.50); Red Cell Distribution Width 13.9 % (11.0-16.0); White Blood Count 16.7 X10*3/uL (4.8-10.8)
[2021-04-07] MEDS: Albuterol Sulfate (0.083%) 2.5 MG/3 ML VIAL.NEB INHALE (09:15)
[2021-04-07] MEDS: Fluticasone/Vilanterol 200/25 BLST.W.DEV 1 PUFF INHALE (09:28)
[2021-04-07] MEDS: Dronedarone HCl 400 MG TABLET PO ×2 (09:49→20:46)
[2021-04-07] MEDS: Tamoxifen Citrate 10 MG TABLET 20 MG PO (09:50)
[2021-04-07] MEDS: Sevelamer Carbonate Tablet 800 MG TABLET 1600 MG PO ×2 (11:17→17:12)
--- NOTE | 2021-04-07 12:23 | PM.PNNEP ---
Subjective Subjective Date of Service: 04/07/21 Interval history: seen and examined, events noted Physical Exam Vital Signs: Vital Signs: Last Vital Signs Temp 97.9 F 04/07/21 11:44 Pulse 89 04/07/21 11:44 Resp 19 04/07/21 11:44 BP 97/47 L 04/07/21 11:44 Pulse Ox 95 04/07/21 11:44 Body Mass Index 21.6 Const: General: no acute distress, well developed and alert HENMT: Face and sinus: Yes normal facial exam and Yes face symmetric Mouth: Normal oral and palatal mucosa present and moist mucous membranes Throat: Yes posterior oropharynx normal and Yes tonsils normal Eyes: General: appearance normal, both eyes and all related structures Alignment and Position: alignment normal and position normal Sclerae: sclerae normal Pupils: Equal, round and reactive pupils present EOM: EOMs intact bilaterally Neck: Neck: Yes normal visual inspection, Yes full ROM and Yes no lymphadenopathy Lymphatic: no lymphadenopathy noted Chest: Chest palpation & inspection: normal inspection of the chest, no tenderness and No rash Resp: Effort & Inspection: normal respiratory effort and able to speak in complete sentences Auscultation: clear to auscultation bilaterally, no crackles, no rales, no rhonchi and no wheezes Cardio: Rate: regular rate Rhythm: regular rhythm Heart sounds: S1 normal heart sound present, S2 normal heart sound present, no murmurs and no rubs GI: Inspection: No distended Palpation (GI): Soft to palpation and nontender Percussion: No tympanic to percussion Auscultation: normal bowel sounds Skin: Rashes: no rashes Trauma: no lacerations or abrasions Wounds: no wounds Neuro: Cranial nerves: Yes CN's II-XII intact bilaterally, Yes Equal, round and reactive pupils present and Yes Bilaterally intact EOM present Extrem: General: Yes full ROM and Yes no pedal edema Psych: Appearance: grossly normal Mental Status: mental status grossly normal Speech and movement: Normal speech and movement present Affect: normal affect Thought process: Normal thought process present Objective Data Labs CBC & Chem 7: 04/07/21 06:03 04/06/21 06:36 Labs: Laboratory Results - last 24 hr 04/07/21 06:03 WBC 16.7 H RBC 2.75 L Hgb 8.5 L Hct 27.6 L MCV 100.4 H MCH 30.9 MCHC 30.8 L RDW 13.9 Plt Count 324 MPV 9.6 Immature Gran % (Auto) 1.0 H Neut % (Auto) 78.7 H Lymph % (Auto) 10.3 L [place] % (Auto) 6.1 Eos % (Auto) 3.5 Baso % (Auto) 0.4 Lymph # (Auto) 1.7 [place] # (Auto) 1.0 Eos # (Auto) 0.6 H Baso # (Auto) 0.1 Abs Immat Gran (auto) 0.16 H Absolute Neuts (auto) 13.1 H Absolute Nucleated RBC 0.000 Nucleated RBC % (auto) 0.0 Microbiology Microbiology Results: Microbiology 04/06/21 00:38 Blood - Venous Blood Culture - Preliminary No growth after 24 hours. 04/06/21 00:38 Blood - Venous Blood Culture - Preliminary No growth after 24 hours. Procedures Date of Service Date of Service: 04/07/21 Assessment & Plan Assessment and plan (1) Acute UTI: Status: Acute (2) Leukocytosis: Status: Acute (3) ESRD (end stage renal disease): Status: Acute Assessment and Plan: 1. ESRD : mwf HD 2. R Flank Pain: ques UTI vs other 3. Anemia 4. Ureteral CA REC: cont HD 3x/wk; ABX as ordered; epo as ordered (4) Paroxysmal A-fib: Status: Acute (5) Bipolar disorder: Status: Acute (6) Hypothyroidism: Status: Acute (7) Seizure: Status: Acute (8) COPD (chronic obstructive pulmonary disease): Status: Acute (9) Ureteral cancer: Status: Acute Assessment and Plan: Acute UTI: -continue IV ceftriaxone -CT abdomen did not show any significant worsening (patient does have evidence of prior renal hematoma, as well as perinephric stranding that has decreased from prior; please see official report for full details) -morning team can consider Urology consult (patient does have history of ureteral stents) Leukocytosis: -patient does have significant leukocytosis, with WBC of 21 -treatment of UTI as per above End-stage renal disease on hemodialysis Friday/Friday/Friday: -nephrology consult placed Paroxysmal atrial fibrillation: - continue home medications Bipolar disorder: -continue home medications Hypothyroidism: -continue home medications Seizure disorder: -continue home medications COPD: -continue all medications Ureteral cancer: -noted FEN: Cardiac diet CODE STATUS: FULL CODE DISPO: Admit to Observation Time Spent With Patient Time: Total time spent is greater than 50% in coordination of care (as documented) at patient's floor/unit and/or counseling patient: Progress Note: Quality Stroke Does the patient have a stroke diagnosis?: No
--- NOTE | 2021-04-07 12:26 | P.PNIM_ITS ---
Subjective Subjective Date of Service: 04/07/21 Interval History: Patient very sleepy but easily arousable, saying she did not sleep the night before, complaining of right-sided abdominal pain, no nausea, no vomiting, ate her breakfast, makes small amount of urine, denies burning, denies fever chills, Review of Systems Rest of review of system reviewed and is negative Physical Exam Vital Signs: Vital Signs: Last Vital Signs Temp 97.9 F 04/07/21 11:44 Pulse 89 04/07/21 11:44 Resp 19 04/07/21 11:44 BP 97/47 L 04/07/21 11:44 Pulse Ox 95 04/07/21 11:44 Body Mass Index 21.6 Constitutional : A lert, oriented, no acute distress Ne ck : Normal inspec tion, Supple Cardi ovascular : RRR, S 1 S2, no lower ext remity edema, dial ysis catheter in p lace Respiratory : ? Fair bilateral a ir entry,? no crac kles, wheezes or r honchi Gastrointes tinal:? soft, Norm al bowel sounds, N on tender, no righ t upper quadrant t enderness Skin : W arm, Dry Neurologi fallon : Alert & orie nted x3, No focal deficit Objective Data Current Medications Generic Name Dose Route Start Last Admin Trade Name Barbara PRN Reason Stop Dose Admin Acetaminophen 650 mg 04/06/21 03:14 Acetaminophen 325 Mg Tablet PO Q6H PRN Pain, Mild (Pain Scale 1-3) Acetaminophen 650 mg 04/06/21 04:48 Acetaminophen 325 Mg Tablet PO BID PRN Pain (Scale Score 1-3) Albuterol Sulfate 2.5 mg 04/06/21 08:00 04/07/21 09:15 Albuterol Sulfate (0.083%) 2.5 Mg/3 Ml Vial.Neb INHALE 2.5 mg RBID HERNESTO Administration Clonazepam 1.5 mg 04/06/21 04:50 04/06/21 20:40 Clonazepam 0.5 Mg Tablet PO 1.5 mg BEDTIME HERNESTO Administration Clozapine 200 mg 04/06/21 21:00 04/06/21 20:41 Clozapine 100 Mg Tablet PO 200 mg BEDTIME HERNESTO Administration Clozapine 50 mg 04/06/21 21:00 04/06/21 20:41 Clozapine 25 Mg Tablet PO 50 mg BEDTIME HERNESTO Administration Dronedarone 400 mg 04/06/21 09:00 04/07/21 09:49 Dronedarone Hcl 400 Mg Tablet PO 400 mg BID HERNESTO Administration Fluticasone/Vilanterol 1 puff 04/06/21 09:00 04/07/21 09:28 Fluticasone/Vilanterol 200/25 Blst.W.Dev INHALE 1 puff DAILY HERNESTO Administration Hydroxyzine HCl 50 mg 04/06/21 04:48 Hydroxyzine Hcl 50 Mg Tablet PO BEDTIME PRN Itching Ceftriaxone Sodium 1 gm/ 50 mls @ 100 mls/hr 04/06/21 23:00 04/07/21 01:25 Sodium Chloride IV Infused Q24H HERNESTO Infusion Lamotrigine 300 mg 04/06/21 04:50 04/06/21 20:41 Lamotrigine 100 Mg Tablet PO 300 mg BEDTIME HERNESTO Administration Levothyroxine Sodium 125 mcg 04/06/21 06:00 04/07/21 06:47 Levothyroxine Sodium 125 Mcg Tablet PO 125 mcg DAILY@0600 HERNESTO Administration Melatonin 21 mg 04/06/21 05:03 Melatonin 3 Mg Tablet PO BEDTIME PRN Insomnia Morphine Sulfate 2 mg 04/06/21 04:50 04/06/21 16:17 Morphine Sulfate 2 Mg/Ml Cartridge IVPUSH 2 mg Q3H PRN Administration Pain, Severe (Pain Scale 7-10) Protocol Prochlorperazine Maleate 5 mg 04/06/21 04:48 Prochlorperazine Maleate 5 Mg Tablet PO TID PRN for nausea/vomiting Sevelamer Carbonate 1,600 mg 04/06/21 08:00 04/07/21 11:17 Sevelamer Carbonate Tablet 800 Mg Tablet PO 1,600 mg TIDWM HERNESTO Administration Sodium Chloride 3 ml 04/06/21 08:00 04/07/21 09:50 0.9 % Sodium Chloride Flush 3 Ml Syringe IVFLUSH 3 ml QSHIFT HERNESTO Administration Tamoxifen Citrate 20 mg 04/06/21 09:00 04/07/21 09:50 Tamoxifen Citrate 10 Mg Tablet PO 20 mg DAILY HERNESTO Administration Labs CBC & Chem 7: 04/07/21 06:03 04/06/21 06:36 Labs: Laboratory Results - last 24 hr 04/07/21 06:03 MCV 100.4 H MCH 30.9 MCHC 30.8 L RDW 13.9 Plt Count 324 MPV 9.6 Immature Gran % (Auto) 1.0 H Neut % (Auto) 78.7 H Lymph % (Auto) 10.3 L [place] % (Auto) 6.1 Eos % (Auto) 3.5 Baso % (Auto) 0.4 Lymph # (Auto) 1.7 [place] # (Auto) 1.0 Eos # (Auto) 0.6 H Baso # (Auto) 0.1 Abs Immat Gran (auto) 0.16 H Absolute Neuts (auto) 13.1 H Absolute Nucleated RBC 0.000 Nucleated RBC % (auto) 0.0 Microbiology Microbiology Results: Microbiology 04/06/21 00:38 Blood Culture - Preliminary Blood - Venous No growth after 24 hours. 04/06/21 00:38 Blood Culture - Preliminary Blood - Venous No growth after 24 hours. Assessment and Plan (1) Ureteral cancer: Status: Acute (2) Bipolar 1 disorder: Status: Acute (3) COPD (chronic obstructive pulmonary disease): Status: Acute (4) ESRD (end stage renal disease): Status: Acute (5) Acute UTI: Status: Acute Assessment and Plan: Acute UTI: Chronic abdominal pain likely due to subcapsular right renal hematoma continue IV ceftriaxone, blood cultures x2 negative, urine culture not collected CT abdomen did not show any significant worsening (patient does have evidence of prior renal hematoma, as well as perinephric stranding that has decreased from prior) WBC trending down continue IV antibiotic, has bilateral renal stents will recommend outpatient follow-up with Urology, no hydronephrosis on CT End-stage renal disease on hemodialysis Friday/Friday/Friday: Continue hemodialysis Paroxysmal atrial fibrillation: stable ventricular rate, continue home medications Bipolar disorder: continue home medications Hypothyroidism: -continue home medications Seizure disorder: continue home medications,sz precautions COPD: Noted to be hypoxemic this morning is on home oxygen 2 L at night , will order oxygen Ureteral cancer: Outpatient follow-up with Urology CODE STATUS: FULL CODE Quality Stroke Does the patient have a stroke diagnosis?: No VTE Prior VTE?: No VTE Risk Level:: Medical - moderate - high VTE Device Contraindication: N/A - Device Ordered VTE Drug Contraindication: Treatment Not Indicated
[2021-04-07] MEDS: Morphine Sulfate 2 MG/ML CARTRIDGE IVPUSH ×3 (13:07→20:54)
--- NOTE | 2021-04-07 14:06 | MHC.CM.PN ---
REFERRAL PLACED TO [facility] TO FOLLOW FOR RESUMPTION OF SERVICES.
[2021-04-07] MEDS: lamoTRIgine 100 MG TABLET 300 MG PO (20:44)
[2021-04-07] MEDS: cloZAPine 25 MG TABLET 50 MG PO (20:45)
[2021-04-07] MEDS: cloZAPine 100 MG TABLET 200 MG PO (20:45)
[2021-04-07] MEDS: clonazePAM 0.5 MG TABLET 1.5 MG PO (20:46)
[2021-04-08] VITALS (7 sets, daily range): BP systolic 94–110; BP diastolic 41–58; PULSE 80–98; RESP 18–19; TEMP 36–36.7; O2SAT 90–96
[2021-04-08 06:26] LABS: MANUAL DIFF FLAG NO
[2021-04-08] MEDS: Levothyroxine Sodium 125 MCG TABLET PO (06:31)
[2021-04-08 06:36] LABS: Basophils Absolute Auto 0.1 X10*3/uL (0.0-0.2); Basophils Percent Auto 0.4 % (0-2); Eosinophils Absolute Auto 0.6 X10*3/uL (0.0-0.4); Eosinophils Percent Auto 3.5 % (0-4); Hemoglobin 8.7 g/dl (12.0-16.0); Imm Gran Abs Auto 0.17 X10*3/uL (0.00-0.03); Lymphocytes Absolute Auto 1.3 X10*3/uL (1.2-4.9); Lymphocytes Percent Auto 7.8 % (20-40); Mean Corpuscular HGB Conc 31.1 g/dl (31.0-35.0); Mean Corpuscular Hemoglobin 31.4 pg (27.0-33.0); Mean Corpuscular Volume 101.1 fL (80-98); Mean Platelet Volume 9.1 fL (9.4-12.3); Monocytes Absolute Auto 1.1 X10*3/uL (0.1-1.2); Monocytes Percent Auto 6.4 % (2-11); Neutrophils Absolute Auto 13.7 X10*3/uL (2.0-8.3); Neutrophils Percent Auto 80.9 % (45-73); Platelet Count 352 X10*3/uL (160-400); Red Blood Count 2.77 X10*6/uL (4.20-5.50); Red Cell Distribution Width 13.9 % (11.0-16.0)
[2021-04-08] MEDS: Albuterol Sulfate (0.083%) 2.5 MG/3 ML VIAL.NEB INHALE ×2 (08:48→19:41)
[2021-04-08] MEDS: Dronedarone HCl 400 MG TABLET PO ×2 (09:48→22:05)
[2021-04-08] MEDS: Sevelamer Carbonate Tablet 800 MG TABLET 1600 MG PO ×3 (09:48→16:31)
[2021-04-08] MEDS: 0.9 % Sodium Chloride Flush 3 ML SYRINGE IVFLUSH ×3 (09:48→23:51)
[2021-04-08] MEDS: Tamoxifen Citrate 10 MG TABLET 20 MG PO (09:48)
--- NOTE | 2021-04-08 10:37 | P.PNIM_ITS ---
Subjective Subjective Date of Service: 04/08/21 Interval History: Patient mostly sleepy at a.m. more awake during day complain of right-sided abdominal pain denies fevers. Review of Systems General no headache, no dizziness, no fever chills. CVS no chest pain, no palpitation. Respiratory no sob. Gastrointestinal no nausea no vomiting, rt sided abdominal pain Physical Exam Vital Signs: Vital Signs: Last Vital Signs Temp 97.5 F 04/08/21 08:00 Pulse 84 04/08/21 08:49 Resp 18 04/08/21 08:00 BP 95/58 L 04/08/21 08:00 Pulse Ox 94 04/08/21 08:00 Body Mass Index 21.6 Constitutional : Alert, oriented, no?acute distress Neck : Normal inspection, Supple Cardiovascular : RRR, S1 S2, no lower extremity edema, dialysis catheter in place Respiratory :? Fair bilateral air entry,? no crackles, wheezes or rhonchi Gastrointestinal:? soft, Normal bowel sounds, Non tender, no right upper quadrant tenderness with palpation Skin : Warm, Dry Neurological : Alert & oriented x3, No focaldeficit Objective Data Current Medications Generic Name Dose Route Start Last Admin Trade Name Freq PRN Reason Stop Dose Admin Acetaminophen 650 mg 04/06/21 03:14 Acetaminophen 325 Mg Tablet PO Q6H PRN Pain, Mild (Pain Scale 1-3) Acetaminophen 650 mg 04/06/21 04:48 Acetaminophen 325 Mg Tablet PO BID PRN Pain (Scale Score 1-3) Albuterol Sulfate 2.5 mg 04/06/21 08:00 04/08/21 08:48 Albuterol Sulfate (0.083%) 2.5 Mg/3 Ml Vial.Neb INHALE 2.5 mg RBID HERNESTO Administration Clonazepam 1.5 mg 04/06/21 04:50 04/07/21 20:46 Clonazepam 0.5 Mg Tablet PO 1.5 mg BEDTIME HERNESTO Administration Clozapine 200 mg 04/06/21 21:00 04/07/21 20:45 Clozapine 100 Mg Tablet PO 200 mg BEDTIME HERNESTO Administration Clozapine 50 mg 04/06/21 21:00 04/07/21 20:45 Clozapine 25 Mg Tablet PO 50 mg BEDTIME HERNESTO Administration Dronedarone 400 mg 04/06/21 09:00 04/08/21 09:48 Dronedarone Hcl 400 Mg Tablet PO 400 mg BID HERNESTO Administration Fluticasone/Vilanterol 1 puff 04/06/21 09:00 04/08/21 08:48 Fluticasone/Vilanterol 200/25 Blst.W.Dev INHALE Not Given DAILY HERNESTO Hydroxyzine HCl 50 mg 04/06/21 04:48 Hydroxyzine Hcl 50 Mg Tablet PO BEDTIME PRN Itching Ceftriaxone Sodium 1 gm/ 50 mls @ 100 mls/hr 04/06/21 23:00 04/07/21 23:38 Sodium Chloride IV Infused Q24H HERNESTO Infusion Lamotrigine 300 mg 04/06/21 04:50 04/07/21 20:44 Lamotrigine 100 Mg Tablet PO 300 mg BEDTIME HERNESTO Administration Levothyroxine Sodium 125 mcg 04/06/21 06:00 04/08/21 06:31 Levothyroxine Sodium 125 Mcg Tablet PO 125 mcg DAILY@0600 HERNESTO Administration Melatonin 21 mg 04/06/21 05:03 Melatonin 3 Mg Tablet PO BEDTIME PRN Insomnia Morphine Sulfate 2 mg 04/06/21 04:50 04/07/21 20:54 Morphine Sulfate 2 Mg/Ml Cartridge IVPUSH 2 mg Q3H PRN Administration Pain, Severe (Pain Scale 7-10) Protocol Prochlorperazine Maleate 5 mg 04/06/21 04:48 Prochlorperazine Maleate 5 Mg Tablet PO TID PRN for nausea/vomiting Sevelamer Carbonate 1,600 mg 04/06/21 08:00 04/08/21 09:48 Sevelamer Carbonate Tablet 800 Mg Tablet PO 1,600 mg TIDWM HERNESTO Administration Sodium Chloride 3 ml 04/06/21 08:00 04/08/21 09:48 0.9 % Sodium Chloride Flush 3 Ml Syringe IVFLUSH 3 ml QSHIFT HERNESTO Administration Tamoxifen Citrate 20 mg 04/06/21 09:00 04/08/21 09:48 Tamoxifen Citrate 10 Mg Tablet PO 20 mg DAILY HERNESTO Administration Labs CBC & Chem 7: 04/08/21 05:56 04/06/21 06:36 Labs: Laboratory Results - last 24 hr 04/08/21 05:56 MCV 101.1 H MCH 31.4 MCHC 31.1 RDW 13.9 Plt Count 352 MPV 9.1 L Immature Gran % (Auto) 1.0 H Neut % (Auto) 80.9 H Lymph % (Auto) 7.8 L [place] % (Auto) 6.4 Eos % (Auto) 3.5 Baso % (Auto) 0.4 Lymph # (Auto) 1.3 [place] # (Auto) 1.1 Eos # (Auto) 0.6 H Baso # (Auto) 0.1 Abs Immat Gran (auto) 0.17 H Absolute Neuts (auto) 13.7 H Absolute Nucleated RBC 0.000 Nucleated RBC % (auto) 0.0 Microbiology Microbiology Results: Microbiology 04/06/21 00:38 Blood Culture - Preliminary Blood - Venous No growth after 48 hours. 04/06/21 00:38 Blood Culture - Preliminary Blood - Venous No growth after 48 hours. Assessment and Plan (1) Ureteral cancer: Status: Acute (2) Bipolar 1 disorder: Status: Acute (3) COPD (chronic obstructive pulmonary disease): Status: Acute (4) ESRD (end stage renal disease): Status: Acute (5) Acute UTI: Status: Acute Assessment and Plan: Acute UTI: Chronic abdominal pain likely due to subcapsular right renal hematoma continue? IV ceftriaxone day 3, blood cultures x2 negative, urine culture not collected CT abdomen did not show any significant worsening (patient does have evidence of prior renal hematoma, as well as perinephric stranding that has decreased from prior) WBC trending down but remains elevated continue IV antibiotic, has bilateral renal stents will recommend follow-up with Urology, no hydronephrosis on CT End-stage renal disease on hemodialysis Friday/Friday/Friday: Continue hemodialysis Paroxysmal atrial fibrillation: stable ventricular rate, continue home medications Bipolar disorder: continue home medications Hypothyroidism: -continue home medications Seizure disorder: continue home medications,sz precautions COPD: Noted to be hypoxemic this morning is on home oxygen 2 L at night , will order oxygen Ureteral cancer: Outpatient follow-up with Urology CODE STATUS: FULL CODE Quality Stroke Does the patient have a stroke diagnosis?: No VTE Prior VTE?: No VTE Risk Level:: Medical - moderate - high VTE Device Contraindication: N/A - Device Ordered VTE Drug Contraindication: Treatment Not Indicated
[2021-04-08] MEDS: Morphine Sulfate 2 MG/ML CARTRIDGE IVPUSH (16:31)
--- NOTE | 2021-04-08 20:04 | PM.PNNEP ---
Subjective Subjective Date of Service: 04/08/21 Interval history: Seen and examined, events noted Physical Exam Vital Signs: Vital Signs: Last Vital Signs Temp 97.5 F 04/08/21 19:13 Pulse 90 04/08/21 19:43 Resp 19 04/08/21 19:13 BP 99/53 L 04/08/21 19:13 Pulse Ox 90 L 04/08/21 19:13 Body Mass Index 21.6 Const: General: no acute distress, well developed and alert HENMT: Face and sinus: Yes normal facial exam and Yes face symmetric Mouth: Normal oral and palatal mucosa present and moist mucous membranes Throat: Yes posterior oropharynx normal and Yes tonsils normal Eyes: General: appearance normal, both eyes and all related structures Alignment and Position: alignment normal and position normal Sclerae: sclerae normal Pupils: Equal, round and reactive pupils present EOM: EOMs intact bilaterally Neck: Neck: Yes normal visual inspection, Yes full ROM and Yes no lymphadenopathy Lymphatic: no lymphadenopathy noted Chest: Chest palpation & inspection: normal inspection of the chest, no tenderness and No rash Resp: Effort & Inspection: normal respiratory effort and able to speak in complete sentences Auscultation: clear to auscultation bilaterally, no crackles, no rales, no rhonchi and no wheezes Cardio: Rate: regular rate Rhythm: regular rhythm Heart sounds: S1 normal heart sound present, S2 normal heart sound present, no murmurs and no rubs GI: Inspection: No distended Palpation (GI): Soft to palpation and nontender Percussion: No tympanic to percussion Auscultation: normal bowel sounds Skin: Rashes: no rashes Trauma: no lacerations or abrasions Wounds: no wounds Neuro: Cranial nerves: Yes CN's II-XII intact bilaterally, Yes Equal, round and reactive pupils present and Yes Bilaterally intact EOM present Extrem: General: Yes full ROM and Yes no pedal edema Psych: Appearance: grossly normal Mental Status: mental status grossly normal Speech and movement: Normal speech and movement present Affect: normal affect Thought process: Normal thought process present Objective Data Labs CBC & Chem 7: 04/08/21 05:56 04/06/21 06:36 Labs: Laboratory Results - last 24 hr 04/08/21 05:56 WBC 17.0 H RBC 2.77 L Hgb 8.7 L Hct 28.0 L MCV 101.1 H MCH 31.4 MCHC 31.1 RDW 13.9 Plt Count 352 MPV 9.1 L Immature Gran % (Auto) 1.0 H Neut % (Auto) 80.9 H Lymph % (Auto) 7.8 L [place] % (Auto) 6.4 Eos % (Auto) 3.5 Baso % (Auto) 0.4 Lymph # (Auto) 1.3 [place] # (Auto) 1.1 Eos # (Auto) 0.6 H Baso # (Auto) 0.1 Abs Immat Gran (auto) 0.17 H Absolute Neuts (auto) 13.7 H Absolute Nucleated RBC 0.000 Nucleated RBC % (auto) 0.0 Microbiology Microbiology Results: Microbiology 04/06/21 00:38 Blood - Venous Blood Culture - Preliminary No growth after 48 hours. 04/06/21 00:38 Blood - Venous Blood Culture - Preliminary No growth after 48 hours. Procedures Date of Service Date of Service: 04/08/21 Assessment & Plan Assessment and plan (1) Acute UTI: Status: Acute (2) Leukocytosis: Status: Acute (3) ESRD (end stage renal disease): Status: Acute Assessment and Plan: 1. ESRD : mwf HD 2. R Flank Pain: ques UTI vs other 3. Anemia 4. Ureteral CA REC: no new recs; cont HD 3x/wk; ABX as ordered; epo as ordered (4) Paroxysmal A-fib: Status: Acute (5) Bipolar disorder: Status: Acute (6) Hypothyroidism: Status: Acute (7) Seizure: Status: Acute (8) COPD (chronic obstructive pulmonary disease): Status: Acute (9) Ureteral cancer: Status: Acute Assessment and Plan: Acute UTI: -continue IV ceftriaxone -CT abdomen did not show any significant worsening (patient does have evidence of prior renal hematoma, as well as perinephric stranding that has decreased from prior; please see official report for full details) -morning team can consider Urology consult (patient does have history of ureteral stents) Leukocytosis: -patient does have significant leukocytosis, with WBC of 21 -treatment of UTI as per above End-stage renal disease on hemodialysis Friday/Friday/Friday: -nephrology consult placed Paroxysmal atrial fibrillation: - continue home medications Bipolar disorder: -continue home medications Hypothyroidism: -continue home medications Seizure disorder: -continue home medications COPD: -continue all medications Ureteral cancer: -noted FEN: Cardiac diet CODE STATUS: FULL CODE DISPO: Admit to Observation Time Spent With Patient Time: Total time spent is greater than 50% in coordination of care (as documented) at patient's floor/unit and/or counseling patient: Progress Note: Quality Stroke Does the patient have a stroke diagnosis?: No
[2021-04-08] MEDS: cefTRIAXone sodium 1 GM in 0.9 % Sodium Chloride 50 ML IV (22:04)
[2021-04-08] MEDS: clonazePAM 0.5 MG TABLET 1.5 MG PO (22:04)
[2021-04-08] MEDS: lamoTRIgine 100 MG TABLET 300 MG PO (22:05)
[2021-04-08] MEDS: cloZAPine 25 MG TABLET 50 MG PO (22:05)
[2021-04-08] MEDS: cloZAPine 100 MG TABLET 200 MG PO (22:05)
[2021-04-09] VITALS (9 sets, daily range): BP systolic 89–124; BP diastolic 49–80; PULSE 89–95; RESP 16–20; TEMP 36.1–36.8; O2SAT 92–95
[2021-04-09] MEDS: Levothyroxine Sodium 125 MCG TABLET PO (06:38)
[2021-04-09] MEDS: Albuterol Sulfate (0.083%) 2.5 MG/3 ML VIAL.NEB INHALE ×2 (08:09→20:28)
[2021-04-09] MEDS: Acetaminophen 325 MG TABLET 650 MG PO (09:57)
--- NOTE | 2021-04-09 11:35 | W.PM.DNNEP ---
Subjective Subjective Principal diagnosis: ESRD This patient was seen during dialysis. Interval history: Seen and examined, events noted Physical Exam Vital Signs: Vital Signs: Last Vital Signs Temp 97.4 F 04/09/21 07:54 Pulse 92 04/09/21 08:09 Resp 18 04/09/21 07:54 BP 112/57 L 04/09/21 07:54 Pulse Ox 94 04/09/21 07:54 Body Mass Index 21.6 Neck: Neck: Yes supple Resp: Effort & Inspection: normal respiratory effort Cardio: Jugular venous distension: no JVD Palpation: no palpable S3 Heart sounds: no rubs GI: Inspection: Yes normal to inspection Palpation (GI): Soft to palpation Auscultation: normal bowel sounds Neuro: General: other (sleepy) Motor exam (neuro): No Asterixis during motor activity present Assessment & Plan Assessment and plan (1) ESRD (end stage renal disease): Status: Acute Assessment and Plan: UTI: Chronic abdominal pain likely due to subcapsular right renal hematoma continue? IV ceftriaxone; blood cultures x2 negative, urine culture not collected CT abdomen did not show any significant worsening (patient does have evidence of prior renal hematoma, as well as perinephric stranding that has decreased from prior) End-stage renal disease on hemodialysis Friday/Friday/Friday: Continue hemodialysis No s/s of uremia Bipolar disorder: continue home medications Hypothyroidism: -continue home medications Seizure disorder: continue home medications,sz precautions COPD: Noted to be hypoxemic this morning is on home oxygen 2 L at night , will order oxygen Ureteral cancer: Outpatient follow-up with Urology Time Spent With Patient Time: Total time spent is greater than 50% in coordination of care (as documented) at patient's floor/unit and/or counseling patient: Time with patient: 15 - 24 minutes Procedures Date of Service Date of Service: 04/09/21
[2021-04-09] MEDS: Sevelamer Carbonate Tablet 800 MG TABLET 1600 MG PO ×2 (13:47→17:23)
[2021-04-09] MEDS: Tamoxifen Citrate 10 MG TABLET 20 MG PO (13:47)
--- NOTE | 2021-04-09 16:01 | P.PNIM_ITS ---
Subjective Subjective Date of Service: 04/09/21 Interval History: HD today R flank pain No N/V Still makes a little urine but no UCx sent Review of Systems Review of Systems: Yes all other systems are reviewed and are negative Physical Exam Vital Signs: Vital Signs: Last Vital Signs Temp 97.4 F 04/09/21 13:54 Pulse 89 04/09/21 13:54 Resp 18 04/09/21 13:54 BP 107/51 L 04/09/21 13:54 Pulse Ox 92 04/09/21 13:54 Body Mass Index 21.6 Gen: tired but in no acute distress HEENT: sclera anicteric, moist mucus membranes Neck: supple Lungs: clear to auscultation bilaterally Heart: regular rate and rhythm, no murmurs Abd: soft, non-tender, non-distended : R CVA tenderness Ext: no edema Skin: warm/well-perfused Neuro: alert and oriented x3, no focal findings Psych: appropriate affect Objective Data Current Medications Generic Name Dose Route Start Last Admin Trade Name Barbara PRN Reason Stop Dose Admin Acetaminophen 650 mg 04/06/21 03:14 04/09/21 09:57 Acetaminophen 325 Mg Tablet PO 650 mg Q6H PRN Administration Pain, Mild (Pain Scale 1-3) Acetaminophen 650 mg 04/06/21 04:48 Acetaminophen 325 Mg Tablet PO BID PRN Pain (Scale Score 1-3) Albuterol Sulfate 2.5 mg 04/06/21 08:00 04/09/21 08:09 Albuterol Sulfate (0.083%) 2.5 Mg/3 Ml Vial.Neb INHALE 2.5 mg RBID HERNESTO Administration Clonazepam 1.5 mg 04/06/21 04:50 04/08/21 22:04 Clonazepam 0.5 Mg Tablet PO 1.5 mg BEDTIME HERNESTO Administration Clozapine 200 mg 04/06/21 21:00 04/08/21 22:05 Clozapine 100 Mg Tablet PO 200 mg BEDTIME HERNESTO Administration Clozapine 50 mg 04/06/21 21:00 04/08/21 22:05 Clozapine 25 Mg Tablet PO 50 mg BEDTIME HERNESTO Administration Dronedarone 400 mg 04/06/21 09:00 04/09/21 09:08 Dronedarone Hcl 400 Mg Tablet PO Not Given BID HERNESTO Fluticasone/Vilanterol 1 puff 04/06/21 09:00 04/09/21 08:08 Fluticasone/Vilanterol 200/25 Blst.W.Dev INHALE Not Given DAILY [facility] Hydroxyzine HCl 50 mg 04/06/21 04:48 Hydroxyzine Hcl 50 Mg Tablet PO BEDTIME PRN Itching Ceftriaxone Sodium 1 gm/ 50 mls @ 100 mls/hr 04/06/21 23:00 04/08/21 22:50 Sodium Chloride IV Infused Q24H HERNESTO Infusion Lamotrigine 300 mg 04/06/21 04:50 04/08/21 22:05 Lamotrigine 100 Mg Tablet PO 300 mg BEDTIME HERNESTO Administration Levothyroxine Sodium 125 mcg 04/06/21 06:00 04/09/21 06:38 Levothyroxine Sodium 125 Mcg Tablet PO 125 mcg DAILY@0600 HERNESTO Administration Melatonin 21 mg 04/06/21 05:03 Melatonin 3 Mg Tablet PO BEDTIME PRN Insomnia Morphine Sulfate 2 mg 04/06/21 04:50 04/08/21 16:31 Morphine Sulfate 2 Mg/Ml Cartridge IVPUSH 2 mg Q3H PRN Administration Pain, Severe (Pain Scale 7-10) Protocol Prochlorperazine Maleate 5 mg 04/06/21 04:48 Prochlorperazine Maleate 5 Mg Tablet PO TID PRN for nausea/vomiting Sevelamer Carbonate 1,600 mg 04/06/21 08:00 04/09/21 13:47 Sevelamer Carbonate Tablet 800 Mg Tablet PO 1,600 mg TIDWM HERNESTO Administration Sodium Chloride 3 ml 04/06/21 08:00 04/09/21 09:08 0.9 % Sodium Chloride Flush 3 Ml Syringe IVFLUSH Not Given QSHIFT [facility] Tamoxifen Citrate 20 mg 04/06/21 09:00 04/09/21 13:47 Tamoxifen Citrate 10 Mg Tablet PO 20 mg DAILY HERNESTO Administration Labs CBC & Chem 7: 04/08/21 05:56 04/06/21 06:36 Assessment and Plan (1) Ureteral cancer: Status: Acute (2) Bipolar 1 disorder: Status: Acute (3) COPD (chronic obstructive pulmonary disease): Status: Acute (4) ESRD (end stage renal disease): Status: Acute (5) Acute UTI: Status: Acute Assessment and Plan: hospital d#4 75yo F with ureteral cancer s/p ureteral stents, also with history of AFib, end-stage renal disease on hemodialysis, hypothyroidism presented with right-sided pain, nausea after recent admission for right renal hematoma # suspected UTI # chronic flank pain # subcapsular R renal hematoma - IV ceftriaxone d#4, BCx x2 negative, UCx not collected - CT did not show hematoma enlargement + perinephric stranding has decreased - WBC trending down- recheck in AM - outpt Urology f/u # ESRD on HD - continue HD MWF, Phos binders # pAF - continue rhythm control med [dronedarone] - apixaban stopped last admission due to renal hematoma # bipolar disorder - continue clozapine, clonazepam, lamotrigine # hypothyroidism - continue LT4 # seizure disorder - continue lamotrigine # COPD, chronic hypoxic respiratory failure - continue home O2 on 2L at night - continue ICS/LABA, JIMMIE # hx breast CA - continue tamoxifen # ureteral CA - outpt Urology f/u # VTE ppx - SCDs Quality Stroke Does the patient have a stroke diagnosis?: No VTE Prior VTE?: No VTE Risk Level:: Medical - moderate - high VTE Device Contraindication: N/A - Device Ordered VTE Drug Contraindication: Treatment Not Indicated
[2021-04-09] MEDS: 0.9 % Sodium Chloride Flush 3 ML SYRINGE IVFLUSH ×2 (17:26→19:58)
--- NOTE | 2021-04-09 17:45 | P.CNUR_ITS ---
History of Present Illness Consult details Consult date: 04/09/21 Narrative: Prudence is a patient well known to Urology Had been diagnosed with hydronephrosis on right side Bilateral stents placed March 22. Acute on chronic renal failure managed by Nephrology Appears that she may have a urinary tract infection Culture not performed on urine White cell count elevated Managed with antibiotics Review of Systems Constitutional: Constitutional: Denies chills and Denies fever(s) Cardiovascular: Cardiovascular: Reports no additional cardiovascular complaints and Denies syncope Respiratory: Respiratory: Denies cough Gastrointestinal: Gastrointestinal: Denies abdominal pain and Denies heartburn Genitourinary: Genitourinary: Reports as per HPI and Denies change in libido Neurologic: Denies syncope Psychiatric: Psychiatric: Denies change in libido Endocrine: Endocrine: Denies change in libido [facility], LAT[facility] Past Medical History Medical History Abdominal pain Arrhythmia Arthritis AV fistula Bipolar 1 disorder Bladder cancer Bowel obstruction Breast cancer Bronchopneumonia Cancer Chronic nausea COPD (chronic obstructive pulmonary disease) COVID-19 vaccine administered Dialysis patient Diarrhea Dysphagia ESRD (end stage renal disease) History of 2019 novel coronavirus disease (COVID-19) Hx of hypotension Hx of radiation therapy Hypothyroidism Invasive ductal carcinoma of breast Lab test negative for COVID-19 virus Lab test positive for detection of COVID-19 virus MSSA bacteremia Paroxysmal A-fib Poor appetite Positive FIT (fecal immunochemical test) Pulmonary emboli Renal failure SBO (small bowel obstruction) Thyroid disease Vomiting Wears dentures Family History Family History Father Dementia Mother Bipolar 1 disorder Brother Heart attack Other Mental health disorder Family history: reviewed and not pertinent Surgical History Surgical History History of abdominal surgery History of appendectomy History of back surgery History of bladder surgery (~06/2020) History of cholecystectomy History of esophagogastroduodenoscopy (EGD) History of hand surgery History of lumpectomy of left breast History of lumpectomy of right breast History of tonsillectomy Hx of colonoscopy Hx of foot surgery Social History Social History Household Members: Spouse Housing: House Are you a primary home care consultant to a significant other at home: No Do you presently have visiting nurse or other home services: Yes Alcohol intake: never Patient Tobacco Use Status: Former Tobacco user Quit Date: 4 years ago Tobacco use type: Cigarette Cigarette Packs Per Day: 1.5 Cigarettes Per Day: 30.0 Years Smoked: 50 e-Cigarette/Vaping Use: Never Used Second Hand Smoke Exposure: No Advance Directives: Yes Advance Directives on File: Yes Advance Directives Date on File: 01/23/21 service: No Current occupational status: disabled Meds Allergies Allergy/AdvReac Type Severity Reaction Status Date / Time adhesive tape Allergy Intermediate Blister Verified 03/15/21 16:05 aspirin Allergy Intermediate RASH Verified 03/15/21 16:05 benztropine Allergy Intermediate RASH Verified 03/15/21 16:05 NSAIDS (Non-Steroidal Allergy Intermediate RASH Verified 03/15/21 16:05 Anti-Inflamma ziprasidone Allergy Unknown UNKNOWN Verified 03/15/21 16:05 doxycycline AdvReac Vomiting Verified 03/15/21 16:05 oxycodone AdvReac Anaphylaxis Verified 04/05/21 23:35 Active Medications: Current Medications Generic Name Dose Route Start Last Admin Trade Name Freq PRN Reason Stop Dose Admin Acetaminophen 650 mg 04/06/21 03:14 04/09/21 09:57 Acetaminophen 325 Mg Tablet PO 650 mg Q6H PRN Administration Pain, Mild (Pain Scale 1-3) Acetaminophen 650 mg 04/06/21 04:48 Acetaminophen 325 Mg Tablet PO BID PRN Pain (Scale Score 1-3) Albuterol Sulfate 2.5 mg 04/06/21 08:00 04/09/21 08:09 Albuterol Sulfate (0.083%) 2.5 Mg/3 Ml Vial.Neb INHALE 2.5 mg RBID HERNESTO Administration Clonazepam 1.5 mg 04/06/21 04:50 04/08/21 22:04 Clonazepam 0.5 Mg Tablet PO 1.5 mg BEDTIME HERNESTO Administration Clozapine 200 mg 04/06/21 21:00 04/08/21 22:05 Clozapine 100 Mg Tablet PO 200 mg BEDTIME HERNESTO Administration Clozapine 50 mg 04/06/21 21:00 04/08/21 22:05 Clozapine 25 Mg Tablet PO 50 mg BEDTIME HERNESTO Administration Dronedarone 400 mg 04/06/21 09:00 04/09/21 09:08 Dronedarone Hcl 400 Mg Tablet PO Not Given BID [facility] Fluticasone/Vilanterol 1 puff 04/06/21 09:00 04/09/21 08:08 Fluticasone/Vilanterol 200/25 Blst.W.Dev INHALE Not Given DAILY HERNESTO Hydroxyzine HCl 50 mg 04/06/21 04:48 Hydroxyzine Hcl 50 Mg Tablet PO BEDTIME PRN Itching Ceftriaxone Sodium 1 gm/ 50 mls @ 100 mls/hr 04/06/21 23:00 04/08/21 22:50 Sodium Chloride IV Infused Q24H HERNESTO Infusion Lamotrigine 300 mg 04/06/21 04:50 04/08/21 22:05 Lamotrigine 100 Mg Tablet PO 300 mg BEDTIME HERNESTO Administration Levothyroxine Sodium 125 mcg 04/06/21 06:00 04/09/21 06:38 Levothyroxine Sodium 125 Mcg Tablet PO 125 mcg DAILY@0600 HERNESTO Administration Melatonin 21 mg 04/06/21 05:03 Melatonin 3 Mg Tablet PO BEDTIME PRN Insomnia Morphine Sulfate 2 mg 04/06/21 04:50 04/08/21 16:31 Morphine Sulfate 2 Mg/Ml Cartridge IVPUSH 2 mg Q3H PRN Administration Pain, Severe (Pain Scale 7-10) Protocol Prochlorperazine Maleate 5 mg 04/06/21 04:48 Prochlorperazine Maleate 5 Mg Tablet PO TID PRN for nausea/vomiting Sevelamer Carbonate 1,600 mg 04/06/21 08:00 04/09/21 17:23 Sevelamer Carbonate Tablet 800 Mg Tablet PO 1,600 mg TIDWM HERNESTO Administration Sodium Chloride 3 ml 04/06/21 08:00 04/09/21 17:26 0.9 % Sodium Chloride Flush 3 Ml Syringe IVFLUSH 3 ml QSHIFT HERNESTO Administration Tamoxifen Citrate 20 mg 04/06/21 09:00 04/09/21 13:47 Tamoxifen Citrate 10 Mg Tablet PO 20 mg DAILY HERNESTO Administration Home Medications Medication Instructions Recorded Confirmed Last Taken Type clonazepam 1 mg tablet 1.5 mg PO BEDTIME 05/21/20 04/06/21 03/24/21 History lamotrigine 150 mg tablet 300 mg PO BEDTIME 05/21/20 04/06/21 03/24/21 History acetaminophen 325 mg tablet 650 mg PO BID PRN 05/22/20 04/06/21 03/19/21 History fluticasone 500 mcg-salmeterol 50 1 inh INHALATION BID 05/22/20 04/06/21 03/25/21 History mcg/dose blistr powdr for inhalation (Wixela Inhub) sevelamer carbonate 800 mg tablet 1,600 mg PO TIDWM 05/22/20 04/06/21 03/25/21 History melatonin 10 mg capsule 20 mg PO BEDTIME PRN cap 09/06/20 04/06/21 03/20/21 History clozapine 100 mg tablet 250 mg PO BEDTIME 01/04/21 04/06/21 03/24/21 History hydroxyzine pamoate 50 mg capsule 50 mg PO BEDTIME PRN 03/21/21 04/06/21 03/20/21 03:00 History Physical Exam Vital Signs: Vital Signs: Last Vital Signs Temp 97.5 F 04/09/21 16:00 Pulse 93 04/09/21 16:00 Resp 18 04/09/21 16:00 BP 99/68 04/09/21 16:00 Pulse Ox 95 04/09/21 16:00 Body Mass Index 21.6 Const: General: cooperative, healthy appearing, comfortable and no acute distress Orientation/consciousness: patient oriented x3 HENMT: Face and sinus: Yes normal facial exam Mouth: moist mucous membranes Neck: Neck: Yes normal visual inspection, Yes full ROM and Yes trachea midline Chest: Chest palpation & inspection: normal inspection of the chest Resp: Effort & Inspection: normal respiratory effort, able to speak in complete sentences and no respiratory distress GI: Inspection: Yes normal to inspection Back/Spine/Pelvis: Cervical Spine: normal cervical lordosis Thoracic/Lumbar Spine: thoracic and lumbar spine normal to inspection Skin: General skin exam: no rashes or lesions noted Neuro: General: patient oriented x3, gait normal, tone normal and moves all extremities Extrem: General: Yes normal to inspection and Yes capillary refill normal Results Labs Result diagrams: 04/08/21 05:56 04/06/21 06:36 Labs: Urine 04/05/21 Range/Units 22:26 Urine Color BROWN Urine Appearance TURBID Urine pH 8.5 H (5.0-8.0) Ur Specific [place] 1.020 (1.005-1.025) Urine Protein 3+ H (NEG-TRACE) MG/DL Urine Glucose (UA) NEG (NEG) MG/DL All other labs normal. Assessment and Plan (1) Ureteral cancer: Status: Acute (2) Hydronephrosis: Status: Acute Antibiotics for urinary tract infection Procedures Date of Service Date of Service: 04/09/21
[2021-04-09] MEDS: lamoTRIgine 100 MG TABLET 300 MG PO (19:49)
[2021-04-09] MEDS: cloZAPine 25 MG TABLET 50 MG PO (19:50)
[2021-04-09] MEDS: cloZAPine 100 MG TABLET 200 MG PO (19:50)
[2021-04-09] MEDS: clonazePAM 0.5 MG TABLET 1.5 MG PO (19:50)
[2021-04-09] MEDS: Dronedarone HCl 400 MG TABLET PO (19:51)
[2021-04-10] VITALS (9 sets, daily range): BP systolic 94–136; BP diastolic 49–63; PULSE 79–93; RESP 16–20; TEMP 36.1–36.8; O2SAT 94–97
--- NOTE | 2021-04-10 | ECG_ITS ---
Test Reason : HYPEREKALEMIA Blood Pressure : / mmHG Vent. Rate : 093 BPM Atrial Rate : 093 BPM P-R Int : 168 ms QRS Dur : 096 ms QT Int : 352 ms P-R-T Axes : 049 001 053 degrees QTc Int : 437 ms Normal sinus rhythm Normal ECG When compared with ECG of 21-MAR-2021 02:56, No significant change was found Referred By: Comfort Lion Electronically Signed By:ROGERS ELAM
--- NOTE | 2021-04-10 | ECG_ITS ---
Test Reason : hyperK Blood Pressure : / mmHG Vent. Rate : 080 BPM Atrial Rate : 080 BPM P-R Int : 180 ms QRS Dur : 100 ms QT Int : 388 ms P-R-T Axes : 051 012 043 degrees QTc Int : 447 ms Normal sinus rhythm Normal ECG When compared with ECG of 10-APR-2021 07:47, No significant change was found Referred By: Comfort Lion Electronically Signed By:ROGERS ELAM
[2021-04-10] MEDS: cefTRIAXone sodium 1 GM in 0.9 % Sodium Chloride 50 ML IV ×2 (00:12→21:46)
[2021-04-10] MEDS: 0.9 % Sodium Chloride Flush 3 ML SYRINGE IVFLUSH ×4 (00:14→21:46)
[2021-04-10] MEDS: Levothyroxine Sodium 125 MCG TABLET PO (06:15)
[2021-04-10 06:51] LABS: Hematocrit 25.6 % (37-47); Hemoglobin 7.9 g/dl (12.0-16.0); Mean Corpuscular HGB Conc 30.9 g/dl (31.0-35.0); Mean Corpuscular Hemoglobin 31.2 pg (27.0-33.0); Mean Corpuscular Volume 101.2 fL (80-98); Mean Platelet Volume 9.2 fL (9.4-12.3); Platelet Count 340 X10*3/uL (160-400); Red Blood Count 2.53 X10*6/uL (4.20-5.50); Red Cell Distribution Width 13.9 % (11.0-16.0); White Blood Count 12.3 X10*3/uL (4.8-10.8)
[2021-04-10 07:35] LABS: Anion Gap 19 (12-20); Blood Urea Nitrogen 36 mg/dL (9-16); Carbon Dioxide 18 mmol/L (22-29); Chloride 104 mmol/L (96-108); Creatinine Clr Calc Pharmacy 8.8; Estimated Glomerular Filt Rate 9; Glucose Random 85 mg/dL (60-115); Potassium 6.1 mmol/L (3.3-5.1); Sodium 135 mmol/L (135-145)
--- NOTE | 2021-04-10 07:41 | PC.NURSE ---
Called cardiology to obtain stat EKG
[2021-04-10] MEDS: Sevelamer Carbonate Tablet 800 MG TABLET 1600 MG PO ×3 (07:58→16:22)
[2021-04-10] MEDS: Sodium Zirconium Cyclosilicate 10 GM POWD.PACK PO ×3 (07:59→19:48)
[2021-04-10] MEDS: Tamoxifen Citrate 10 MG TABLET 20 MG PO (07:59)
[2021-04-10] MEDS: Insulin Regular, Human 100 UNIT/ML 3 ML VIAL IVPUSH (08:00)
[2021-04-10 08:16] LABS: Iron 55 mcg/dL (30-160)
[2021-04-10] MEDS: Fluticasone/Vilanterol 200/25 BLST.W.DEV 1 PUFF INHALE (08:23)
[2021-04-10] MEDS: Albuterol Sulfate (0.083%) 2.5 MG/3 ML VIAL.NEB INHALE (08:23)
[2021-04-10] MEDS: Dronedarone HCl 400 MG TABLET PO ×2 (08:44→21:46)
[2021-04-10] MEDS: Calcium Gluconate/NaCl,Iso-Osm 1 GM/50 ML PLAST..BAG IV (08:44)
[2021-04-10 08:56] LABS: Folate 5.4 ng/mL (> or = 4.0); Vitamin B12 348 pg/mL (200-900)
[2021-04-10 09:21] LABS: Ferritin 2248 ng/mL (10-250)
--- NOTE | 2021-04-10 10:47 | PM.PNNEP ---
Subjective Subjective Date of Service: 04/10/21 Principal diagnosis: ESRD Interval history: Doing OK No new issues Physical Exam Vital Signs: Vital Signs: Last Vital Signs Temp 97.5 F 04/10/21 07:23 Pulse 91 04/10/21 09:30 Resp 17 04/10/21 07:23 BP 136/61 04/10/21 07:23 Pulse Ox 95 04/10/21 07:23 Body Mass Index 21.6 Const: General: no acute distress Orientation/consciousness: oriented to person Neck: Neck: Yes supple and Yes no JVD Resp: Auscultation: clear to auscultation bilaterally Cardio: Jugular venous distension: no JVD Rhythm: regular rhythm Heart sounds: no gallops, no murmurs and no rubs GI: Inspection: Yes normal to inspection Palpation (GI): Soft to palpation and No hepatosplenomegaly present Auscultation: normal bowel sounds Neuro: General: oriented to person and no focal motor deficits Motor exam (neuro): No Asterixis during motor activity present Objective Data Labs CBC & Chem 7: 04/10/21 06:09 04/10/21 06:09 Labs: Laboratory Results - last 24 hr 04/10/21 04/10/21 04/10/21 06:09 06:09 06:09 WBC 12.3 H RBC 2.53 L Hgb 7.9 L Hct 25.6 L MCV 101.2 H MCH 31.2 MCHC 30.9 L RDW 13.9 Plt Count 340 MPV 9.2 L Absolute Nucleated RBC 0.000 Nucleated RBC % (auto) 0.0 Sodium 135 Potassium 6.1 H* Chloride 104 Carbon Dioxide 18 L Anion Gap 19 BUN 36 H Creatinine 4.65 H* Estim Creat Clear Calc 8.8 Estimated GFR 9 Random Glucose 85 Calcium 11.0 H D Iron 55 Ferritin 2248 H Vitamin B12 348 Folate 5.4 Microbiology Microbiology Results: Microbiology 04/06/21 00:38 Blood - Venous Blood Culture - Preliminary No growth after 48 hours. 04/06/21 00:38 Blood - Venous Blood Culture - Preliminary No growth after 48 hours. Procedures Date of Service Date of Service: 04/10/21 Assessment & Plan Assessment and plan (1) ESRD (end stage renal disease): Status: Acute Assessment and Plan: UTI: Chronic abdominal pain likely due to subcapsular right renal hematoma continue? IV ceftriaxone; blood cultures x2 negative, urine culture not collected CT abdomen did not show any significant worsening (patient does have evidence of prior renal hematoma, as well as perinephric stranding that has decreased from prior) End-stage renal disease on hemodialysis Friday/Friday/Friday: Continue hemodialysis No s/s of uremia Bipolar disorder: continue home medications Hypothyroidism: -continue home medications Seizure disorder: continue home medications,sz precautions COPD: Noted to be hypoxemic this morning is on home oxygen 2 L at night , will order oxygen Ureteral cancer: Outpatient follow-up with Urology Time Spent With Patient Time: Total time spent is greater than 50% in coordination of care (as documented) at patient's floor/unit and/or counseling patient: Time with patient: 15 - 24 minutes Progress Note: Quality Stroke Does the patient have a stroke diagnosis?: No
--- NOTE | 2021-04-10 13:17 | P.PNIM_ITS ---
Subjective Subjective Date of Service: 04/10/21 Interval History: R flank pain improved eating well K high this am Review of Systems Review of Systems: Yes all other systems are reviewed and are negative Physical Exam Vital Signs: Vital Signs: Last Vital Signs Temp 98.3 F 04/10/21 11:16 Pulse 88 04/10/21 11:16 Resp 16 04/10/21 11:16 BP 116/63 04/10/21 11:16 Pulse Ox 97 04/10/21 11:16 Body Mass Index 21.6 Gen: tired but in no acute distress HEENT: sclera anicteric, moist mucus membranes Neck: supple Lungs: clear to auscultation bilaterally Heart: regular rate and rhythm, no murmurs Abd: soft, non-tender, non-distended : R CVA tenderness Ext: no edema Skin: warm/well-perfused Neuro: alert and oriented x3, no focal findings Psych: appropriate affect Objective Data Current Medications Generic Name Dose Route Start Last Admin Trade Name Freq PRN Reason Stop Dose Admin Acetaminophen 650 mg 04/06/21 03:14 04/09/21 09:57 Acetaminophen 325 Mg Tablet PO 650 mg Q6H PRN Administration Pain, Mild (Pain Scale 1-3) Acetaminophen 650 mg 04/06/21 04:48 Acetaminophen 325 Mg Tablet PO BID PRN Pain (Scale Score 1-3) Albuterol Sulfate 2.5 mg 04/06/21 08:00 04/10/21 08:23 Albuterol Sulfate (0.083%) 2.5 Mg/3 Ml Vial.Neb INHALE 2.5 mg RBID HERNESTO Administration Clonazepam 1.5 mg 04/06/21 04:50 04/09/21 19:50 Clonazepam 0.5 Mg Tablet PO 1.5 mg BEDTIME HERNESTO Administration Clozapine 200 mg 04/06/21 21:00 04/09/21 19:50 Clozapine 100 Mg Tablet PO 200 mg BEDTIME HERNESTO Administration Clozapine 50 mg 04/06/21 21:00 04/09/21 19:50 Clozapine 25 Mg Tablet PO 50 mg BEDTIME HERNESTO Administration Dronedarone 400 mg 04/06/21 09:00 04/10/21 08:44 Dronedarone Hcl 400 Mg Tablet PO 400 mg BID HERNESTO Administration Fluticasone/Vilanterol 1 puff 04/06/21 09:00 04/10/21 08:23 Fluticasone/Vilanterol 200/25 Blst.W.Dev INHALE 1 puff DAILY HERNESTO Administration Hydroxyzine HCl 50 mg 04/06/21 04:48 Hydroxyzine Hcl 50 Mg Tablet PO BEDTIME PRN Itching Ceftriaxone Sodium 1 gm/ 50 mls @ 100 mls/hr 04/06/21 23:00 04/10/21 01:00 Sodium Chloride IV Infused Q24H HERNESTO Infusion Lamotrigine 300 mg 04/06/21 04:50 04/09/21 19:49 Lamotrigine 100 Mg Tablet PO 300 mg BEDTIME HERNESTO Administration Levothyroxine Sodium 125 mcg 04/06/21 06:00 04/10/21 06:15 Levothyroxine Sodium 125 Mcg Tablet PO 125 mcg DAILY@0600 HERNESTO Administration Melatonin 21 mg 04/06/21 05:03 Melatonin 3 Mg Tablet PO BEDTIME PRN Insomnia Morphine Sulfate 2 mg 04/06/21 04:50 04/08/21 16:31 Morphine Sulfate 2 Mg/Ml Cartridge IVPUSH 2 mg Q3H PRN Administration Pain, Severe (Pain Scale 7-10) Protocol Prochlorperazine Maleate 5 mg 04/06/21 04:48 Prochlorperazine Maleate 5 Mg Tablet PO TID PRN for nausea/vomiting Sevelamer Carbonate 1,600 mg 04/06/21 08:00 04/10/21 12:51 Sevelamer Carbonate Tablet 800 Mg Tablet PO 1,600 mg TIDWM HERNESTO Administration Sodium Chloride 3 ml 04/06/21 08:00 04/10/21 07:59 0.9 % Sodium Chloride Flush 3 Ml Syringe IVFLUSH 3 ml QSHIFT HERNESTO Administration Sodium Zirconium Cyclosilicate 10 gm 04/10/21 09:00 04/10/21 07:59 Sodium Zirconium Cyclosilicate 10 Gm Powd.Pack PO 04/11/21 21:01 10 gm TID HERNESTO Administration Tamoxifen Citrate 20 mg 04/06/21 09:00 04/10/21 07:59 Tamoxifen Citrate 10 Mg Tablet PO 20 mg DAILY HERNESTO Administration Labs CBC & Chem 7: 04/10/21 06:09 04/10/21 06:09 Labs: Laboratory Results - last 24 hr 04/10/21 04/10/21 04/10/21 06:09 06:09 06:09 MCV 101.2 H MCH 31.2 MCHC 30.9 L RDW 13.9 Plt Count 340 MPV 9.2 L Absolute Nucleated RBC 0.000 Nucleated RBC % (auto) 0.0 Anion Gap 19 Estim Creat Clear Calc 8.8 Estimated GFR 9 Random Glucose 85 Calcium 11.0 H D Iron 55 Ferritin 2248 H Vitamin B12 348 Folate 5.4 Assessment and Plan (1) Ureteral cancer: Status: Acute (2) Bipolar 1 disorder: Status: Acute (3) COPD (chronic obstructive pulmonary disease): Status: Acute (4) ESRD (end stage renal disease): Status: Acute (5) Acute UTI: Status: Acute Assessment and Plan: hospital d#5 75yo F with ureteral cancer s/p ureteral stents, also with history of AFib, end- stage renal disease on hemodialysis, hypothyroidism presented with right-sided pain, nausea after recent admission for right renal hematoma # suspected UTI # chronic flank pain # subcapsular R renal hematoma - IV ceftriaxone d#12/22, BCx x2 negative, UCx not collected - CT did not show hematoma enlargement + perinephric stranding has decreased - WBC continues to improve - per Urology continue ABX; outpt f/u # hyperK - no EKG changes - will give Ca gluconate, Lokelma, insulin/D50; recheck BMP at 14:00; HD tomorrow; discuss with Nephrology # ESRD on HD - continue HD MWF, Phos binders # anemia of CKD - monitor Hb # pAF - continue rhythm control med [dronedarone] - apixaban stopped last admission due to renal hematoma # bipolar disorder - continue clozapine, clonazepam, lamotrigine # hypothyroidism - continue LT4 # seizure disorder - continue lamotrigine # COPD, chronic hypoxic respiratory failure - continue home O2 on 2L at night - continue ICS/LABA, JIMMIE # hx breast CA - continue tamoxifen # ureteral CA - outpt Urology f/u # VTE ppx - SCDs, apixaban on hold due to renal hematoma # dispo - PT recommends LTC but pt likely to go home in care of with VNA services Quality Stroke Does the patient have a stroke diagnosis?: No VTE Prior VTE?: No VTE Risk Level:: Medical - moderate - high VTE Device Contraindication: N/A - Device Ordered VTE Drug Contraindication: Treatment Not Indicated
[2021-04-10 15:50] LABS: Anion Gap 19 (12-20); Blood Urea Nitrogen 43 mg/dL (9-16); Calcium 9.9 mg/dL (8.4-10.2); Carbon Dioxide 20 mmol/L (22-29); Chloride 102 mmol/L (96-108); Creatinine Clr Calc Pharmacy 7.7; Estimated Glomerular Filt Rate 8; Glucose Random 71 mg/dL (60-115); Sodium 135 mmol/L (135-145)
--- NOTE | 2021-04-10 16:24 | PC.NURSE ---
[facility] called to obtain stat EKG. Respiratory called for albuterol nebulizer treatment
[2021-04-10] MEDS: Albuterol Sulfate (0.083%) 2.5 MG/3 ML VIAL.NEB 10 MG INHALE (16:28)
--- NOTE | 2021-04-10 16:35 | PC.NURSE ---
EKG obtained and results sent to Dr. Amisha flaherty text
[2021-04-10 21:02] LABS: Anion Gap 20 (12-20); Blood Urea Nitrogen 45 mg/dL (9-16); Calcium 10.2 mg/dL (8.4-10.2); Carbon Dioxide 20 mmol/L (22-29); Chloride 101 mmol/L (96-108); Creatinine Clr Calc Pharmacy 6.9; Estimated Glomerular Filt Rate 7; Glucose Random 142 mg/dL (60-115); Sodium 136 mmol/L (135-145)
[2021-04-10] MEDS: lamoTRIgine 100 MG TABLET 300 MG PO (21:45)
[2021-04-10] MEDS: clonazePAM 0.5 MG TABLET 1.5 MG PO (21:45)
[2021-04-10] MEDS: cloZAPine 25 MG TABLET 50 MG PO (21:45)
[2021-04-10] MEDS: cloZAPine 100 MG TABLET 200 MG PO (21:46)
[2021-04-11 04:00] VITALS: BP 97/51; PULSE 82; RESP 18; TEMP 36.4; O2SAT 93
[2021-04-11] MEDS: Levothyroxine Sodium 125 MCG TABLET PO (06:15)
[2021-04-11 06:38] LABS: Hematocrit 25.4 % (37-47); Hemoglobin 7.9 g/dl (12.0-16.0); Mean Corpuscular HGB Conc 31.1 g/dl (31.0-35.0); Mean Corpuscular Hemoglobin 31.6 pg (27.0-33.0); Mean Corpuscular Volume 101.6 fL (80-98); Mean Platelet Volume 9.2 fL (9.4-12.3); Platelet Count 321 X10*3/uL (160-400); Red Cell Distribution Width 13.8 % (11.0-16.0); White Blood Count 10.9 X10*3/uL (4.8-10.8)
[2021-04-11 07:43] LABS: Anion Gap 19 (12-20); Blood Urea Nitrogen 56 mg/dL (9-16); Calcium 9.6 mg/dL (8.4-10.2); Carbon Dioxide 18 mmol/L (22-29); Chloride 102 mmol/L (96-108); Creatinine Clr Calc Pharmacy 6.3; Estimated Glomerular Filt Rate 6; Glucose Random 84 mg/dL (60-115); Potassium 5.9 mmol/L (3.3-5.1); Sodium 133 mmol/L (135-145)
[2021-04-11 07:45] VITALS: BP 103/48; PULSE 80; RESP 19; TEMP 36.9; O2SAT 97
[2021-04-11] MEDS: 0.9 % Sodium Chloride Flush 3 ML SYRINGE IVFLUSH ×2 (07:59→15:36)
[2021-04-11] MEDS: Sodium Zirconium Cyclosilicate 10 GM POWD.PACK PO ×2 (07:59→15:36)
[2021-04-11] MEDS: Albuterol Sulfate (0.083%) 2.5 MG/3 ML VIAL.NEB INHALE (08:14)
[2021-04-11] MEDS: Fluticasone/Vilanterol 200/25 BLST.W.DEV 1 PUFF INHALE (08:14)
[2021-04-11 08:15] VITALS: PULSE 82; O2SAT 97
--- NOTE | 2021-04-11 10:53 | W.PM.DNNEP ---
Subjective Subjective Principal diagnosis: ESRD This patient was seen during dialysis. Interval history: Persistent high K Physical Exam Vital Signs: Vital Signs: Last Vital Signs Temp 98.4 F 04/11/21 07:45 Pulse 82 04/11/21 08:15 Resp 19 04/11/21 07:45 BP 103/48 L 04/11/21 07:45 Pulse Ox 97 04/11/21 07:45 Body Mass Index 21.6 Const: General: alert Eyes: General: appearance normal, both eyes and all related structures Neck: Neck: Yes supple and Yes no JVD Resp: Auscultation: clear to auscultation bilaterally, no crackles and no rales Cardio: Jugular venous distension: no JVD Palpation: no palpable S3 Rate: regular rate Rhythm: regular rhythm GI: Inspection: No distended Palpation (GI): nontender Auscultation: normal bowel sounds Neuro: General: no focal motor deficits and other (sleepy) Motor exam (neuro): No Asterixis during motor activity present Extrem: General: Yes full ROM and Yes no pedal edema Assessment & Plan Assessment and plan (1) ESRD (end stage renal disease): Status: Acute (2) Hyperkalemia: Status: Acute Assessment and Plan: UTI: Chronic abdominal pain likely due to subcapsular right renal hematoma continue? IV ceftriaxone; blood cultures x2 negative, urine culture not collected CT abdomen did not show any significant worsening (patient does have evidence of prior renal hematoma, as well as perinephric stranding that has decreased from prior) End-stage renal disease on hemodialysis Friday/Friday/Friday: Continue hemodialysis No s/s of uremia Bipolar disorder: continue home medications Hypothyroidism: -continue home medications Seizure disorder: continue home medications,sz precautions COPD: Noted to be hypoxemic this morning is on home oxygen 2 L at night , will order oxygen Ureteral cancer: Outpatient follow-up with Urology Persistent Hyperkalemia Will continue to use Low K bath with Dialysis Keep on 2 gm K dietary restriction Add Lokelma 10 gm on NON -Dialysis days ( TTSS) Add NaCHO3 650 mg PO daily to correct acidosis Time Spent With Patient Time: Total time spent is greater than 50% in coordination of care (as documented) at patient's floor/unit and/or counseling patient: Time with patient: 15 - 24 minutes Procedures Date of Service Date of Service: 04/11/21
[2021-04-11 12:57] VITALS: BP 125/55; PULSE 86; RESP 17; TEMP 36.8; O2SAT 98
[2021-04-11] MEDS: Tamoxifen Citrate 10 MG TABLET 20 MG PO (13:16)
[2021-04-11] MEDS: Sevelamer Carbonate Tablet 800 MG TABLET 1600 MG PO (13:16)
[2021-04-11 15:12] VITALS: BP 103/58; PULSE 78; RESP 18; TEMP 36.6; O2SAT 94
--- NOTE | 2021-04-11 15:16 | P.F2F_ITS ---
Service Date Service Date: 04/11/21 Encounter Date of encounter: 04/11/21 Reasons for Services Reason for senior care: medication management, medication treatment and teach disease management Reason for physical therapy: home safety and mobility, therapeutic exercises, gait/transfer training, assess need for DME, ADL training and energy conservation Reason for occupational therapy: home safety and mobility, therapeutic exercises, gait/transfer training, assess need for DME, ADL training and energy conservation Overseeing Care: Gabriel Acosta Homebound: Leaving the home is medically contraindicated at this time without the asist of a device and/or another person due th the listed conditions above and below. Reason homebound: unsteady gait / fall risk, pain with ambulation and weakness related to hospital stay Certification: Based on the above findings, I certify that this patient is confined to the home and needs intermittent senior care care, physical therapy and/or speech therapy, or continues to need occupational therapy. The patient is under my care, and I have initiated the establishment of the plan of care. The patient will be followed by a physician who will periodically review the plan of care.
--- NOTE | 2021-04-11 15:17 | MHC.CM.PN ---
Addendum entered by Noelle Maher 04/11/21 15:32: CM CALLED PTS , STANLEY ([phone]) AND INFORMED HIM OF DC. HE REPORTS HE WILL BE HERE TO GET PT WITHIN THE HOUR. PTS SECOND IMM WAS REVIEWED WITH STANLEY AND A COPY WAS LEFT AT BEDSIDE. Original Note: PT CLEARED FOR DC HOME TODAY WITH RESUMPTION OF [facility] TO TRANSPORT
--- NOTE | 2021-04-11 15:18 | PM.DS ---
DS: Providers Provider Date of Service: 04/11/21 Date of admission: 04/06/21 03:14 Date of discharge: 04/11/21 Primary care physician: Gabriel Acosta MD Consults: 04/06/21 07:23 Consult to Nephrology Routine Consulting Provider: [facility] Reason for consultation: ESRD on HD M/W/F Has provider been notified: No 04/09/21 08:44 Consult to Urology Routine Consulting Provider: Marshal Gould Reason for consultation: subcapsular right renal hematoma , bilateral ureteral stents DS: Diagnosis Discharge Diagnosis (1) ESRD (end stage renal disease): Status: Acute (2) Hyperkalemia: Status: Acute (3) Ureteral cancer: Status: Acute (4) Acute UTI: Status: Acute (5) Renal hematoma: Status: Acute (6) Bladder cancer: Status: Acute (7) Anemia, chronic renal failure: Status: Acute DS: Medications Discharge Medications Home Medications: Home Medications Medication Instructions Recorded Confirmed clonazepam 1 mg tablet 1.5 mg PO BEDTIME 05/21/20 04/06/21 lamotrigine 150 mg tablet 300 mg PO BEDTIME 05/21/20 04/06/21 acetaminophen 325 mg tablet 650 mg PO BID PRN 05/22/20 04/06/21 fluticasone 500 mcg-salmeterol 50 1 inh INHALATION BID 05/22/20 04/06/21 mcg/dose blistr powdr for inhalation (Wixela Inhub) sevelamer carbonate 800 mg tablet 1,600 mg PO TIDWM 05/22/20 04/06/21 melatonin 10 mg capsule 20 mg PO BEDTIME PRN cap 09/06/20 04/06/21 clozapine 100 mg tablet 250 mg PO BEDTIME 01/04/21 04/06/21 hydroxyzine pamoate 50 mg capsule 50 mg PO BEDTIME PRN 03/21/21 04/06/21 Previous Rx's Medication Instructions Recorded dronedarone 400 mg tablet (Multaq) 400 mg PO BID 90 Days #180 tab 01/26/21 albuterol sulfate 2.5 mg INHALATION BID 30 Days #180 02/05/21 ml prochlorperazine maleate 5 mg 5 mg PO TID PRN #30 tab 03/09/21 tablet levothyroxine 125 mcg tablet 125 mcg PO QAM #90 tab 03/20/21 tamoxifen 20 mg tablet 20 mg PO DAILY #90 tab 03/20/21 cefuroxime axetil 250 mg tablet 250 mg PO DAILY #5 tab 04/11/21 DS: Summary Hospital Course Hospital Course: from admission H+P by hospitalist Cesar Ellingtonams, 04/06/21: 75-year-old female with history of ureteral cancer, status post ureteral stents, also with history of AFib, end-stage renal disease on hemodialysis, hypothyroidism, who presented with right-sided pain, nausea. History is from the patient and from ED notes. Patient dose that she started having right-sided abdominal pain in the last 24 hours, she endorses some nausea.? When she got to the hospital, she also endorses that she started having some diarrhea as well.? I suspect the patient is not the best historian.? Otherwise, she denies chest pain, shortness of breath, fever chills, vomiting. Of note, the patient was recently discharged from this hospital on 03/29/2021 after being treated for renal hematoma. In the ED, vitals were unremarkable.? Labs were pertinent for the following:? WBC 21.9, hemoglobin 9.0, creatinine was elevated at 4.84 (in the setting of end-stage renal disease), urine was positive for UTI.? CT of the abdomen/pelvis without contrast did show some perinephric stranding again, somewhat decreased from prior (please see official report for full details). In the ED, the patient was treated with ceftriaxone.? The patient is being admitted for UTI, leukocytosis. This patient with bladder CA and hydronephrosis s/p ureteral stents was admitted to the medical/surgical floor for suspected UTI and flank pain from R renal subcapsular hematoma. She was treated with IV ceftriaxone. Blood cultures were negative. Urine culture was not collected, though she still makes a little urine. CT showed the hematoma was similar in size to previous CT, and the perinephric stranding had actually decreased. Leukocytosis resolved. She was continuned on HD as per her usual schedule (MWF). She did require medical treatment for hyperkalemia with Lokelmia, albuterol, insulin and calcium gluconate, though she did not have EKG changes. HD was performed with low-K bath. She was discharged home to resume VNA services and will continue HD MWF. She will receive erythropoeitin at HD. She will take 5 more days of antibiotic treatment with cefuroxime. She should follow up with her urologist in 1-2 weeks. Time Spent with Patient Time attestation: Total time spent providing and/or coordinating discharge services: Discharge coordination time: Greater than 30 minutes Quality: Stroke Does the patient have a stroke diagnosis?: No Physical Exam Vital Signs: Vital Signs: Last Vital Signs Temp 97.9 F 04/11/21 15:12 Pulse 78 04/11/21 15:12 Resp 18 04/11/21 15:12 BP 103/58 L 04/11/21 15:12 Pulse Ox 94 04/11/21 15:12 Body Mass Index 21.6 Gen: tired but in no acute distress HEENT: sclera anicteric, moist mucus membranes Neck: supple, L subclavian HD catheter Lungs: clear to auscultation bilaterally Heart: regular rate and rhythm, no murmurs Abd: soft, non-tender, non-distended : R CVA tenderness Ext: no edema Skin: warm/well-perfused Neuro: alert and oriented x3, no focal findings Psych: appropriate affect ? DS: Data Data Completed and Pending Completed studies during hospitalization [Text1]: Laboratory Results WBC 10.9 X10*3/uL (4.8-10.8) H 04/11/21 06:14 RBC 2.50 X10*6/uL (4.20-5.50) L 04/11/21 06:14 Hgb 7.9 g/dl (12.0-16.0) L 04/11/21 06:14 Hct 25.4 % (37-47) L 04/11/21 06:14 MCV 101.6 fL (80-98) H 04/11/21 06:14 MCH 31.6 pg (27.0-33.0) 04/11/21 06:14 MCHC 31.1 g/dl (31.0-35.0) 04/11/21 06:14 RDW 13.8 % (11.0-16.0) 04/11/21 06:14 Plt Count 321 X10*3/uL (160-400) 04/11/21 06:14 MPV 9.2 fL (9.4-12.3) L 04/11/21 06:14 Immature Gran % (Auto) 1.0 % (0.0-0.4) H 04/08/21 05:56 Neut % (Auto) 80.9 % (45-73) H 04/08/21 05:56 Lymph % (Auto) 7.8 % (20-40) L 04/08/21 05:56 [place] % (Auto) 6.4 % (2-11) 04/08/21 05:56 Eos % (Auto) 3.5 % (0-4) 04/08/21 05:56 Baso % (Auto) 0.4 % (0-2) 04/08/21 05:56 Lymph # (Auto) 1.3 X10*3/uL (1.2-4.9) 04/08/21 05:56 [place] # (Auto) 1.1 X10*3/uL (0.1-1.2) 04/08/21 05:56 Eos # (Auto) 0.6 X10*3/uL (0.0-0.4) H 04/08/21 05:56 Baso # (Auto) 0.1 X10*3/uL (0.0-0.2) 04/08/21 05:56 Abs Immat Gran (auto) 0.17 X10*3/uL (0.00-0.03) H 04/08/21 05:56 Absolute Neuts (auto) 13.7 X10*3/uL (2.0-8.3) H 04/08/21 05:56 Absolute Nucleated RBC 0.000 X10*3/uL (0.0-0.012) 04/11/21 06:14 Nucleated RBC % (auto) 0.0 /100WBC (0.0-0.2) 04/11/21 06:14 Sodium 133 mmol/L (135-145) L 04/11/21 06:14 Potassium 5.9 mmol/L (3.3-5.1) H 04/11/21 06:14 Chloride 102 mmol/L (96-108) 04/11/21 06:14 Carbon Dioxide 18 mmol/L (22-29) L 04/11/21 06:14 Anion Gap 19 (12-20) 04/11/21 06:14 BUN 56 mg/dL (9-16) H 04/11/21 06:14 Creatinine 6.56 mg/dL (0.5-1.4) H* 04/11/21 06:14 Estim Creat Clear Calc 6.3 04/11/21 06:14 Estimated GFR 6 04/11/21 06:14 Random Glucose 84 mg/dL (60-115) D 04/11/21 06:14 Lactic Acid 0.9 mmol/L (0.5-2.0) 04/05/21 23:59 Calcium 9.6 mg/dL (8.4-10.2) 04/11/21 06:14 Iron 55 mcg/dL (30-160) 04/10/21 06:09 TIBC 226 mcg/dL (228-428) L 04/10/21 06:09 % Saturation 24 % (15-50) 04/10/21 06:09 Unsat Iron Binding 171 ug/dL 04/10/21 06:09 Ferritin 2248 ng/mL (10-250) H 04/10/21 06:09 Total Bilirubin 0.5 mg/dL (0.0-1.0) 04/06/21 00:52 Direct Bilirubin 0.2 mg/dL (0.0-0.5) 04/06/21 00:52 AST 9 U/L (5-31) D 04/06/21 00:52 ALT 6 U/L (0-31) 04/06/21 00:52 Alkaline Phosphatase 141 U/L (39-117) H D 04/06/21 00:52 Total Protein 6.2 g/dL (6.5-8.0) L 04/06/21 00:52 Albumin 3.4 g/dL (3.5-5.0) L 04/06/21 00:52 Lipase 32 U/L (8-78) 04/06/21 00:52 Vitamin B12 348 pg/mL (200-900) 04/10/21 06:09 Folate 5.4 ng/mL (> or = 4.0) 04/10/21 06:09 Urine Color BROWN 04/05/21 22:26 Urine Appearance TURBID 04/05/21 22:26 Urine pH 8.5 (5.0-8.0) H 04/05/21 22:26 Ur Specific [place] 1.020 (1.005-1.025) 04/05/21 22:26 Urine Protein 3+ MG/DL (NEG-TRACE) H 04/05/21 22:26 Urine Glucose (UA) NEG MG/DL (NEG) 04/05/21 22:26 Urine Ketones NEG MG/DL (NEG) 04/05/21 22:26 Urine Blood 3+ (NEG) H 04/05/21 22:26 Urine Nitrite POS (NEG) H 04/05/21 22:26 Ur Leukocyte Esterase 3+ (NEG) H 04/05/21 22:26 Urine RBC 5-9 /HPF (0) H 04/05/21 22:26 Urine WBC TNTC /HPF (0-4) H 04/05/21 22:26 Ur Squamous Epith Cells 1+ /LPF 04/05/21 22:26 Urine Bacteria 2+ /LPF 04/05/21 22:26 Coronavirus (PCR) NEGATIVE (Negative) 04/06/21 00:41 Influenza Type A (PCR) NEGATIVE (Negative) 04/06/21 00:41 Influenza Type B (PCR) NEGATIVE (Negative) 04/06/21 00:41 RSV RNA Qual (PCR) NEGATIVE (Negative) 04/06/21 00:41 Impressions Abdomen/Pelvis CT 04/06/21 00:00 IMPRESSION: 1. Similar appearance of the right posterior renal subcapsular hematoma. Perinephric stranding again noted which is somewhat decreased from prior. 2. Bilateral ureteral stents remain in place. Similar soft tissue nodularity along the distal ureter. 3. No acute inflammatory changes of the abdomen or pelvis. 4. Similar appearance of the lung bases. Nodular opacities at the left base are without significant change. Labs on day of discharge: Laboratory Results - last 24 hr 04/10/21 04/10/21 04/11/21 14:14 19:25 06:14 WBC RBC Hgb Hct MCV MCH MCHC RDW Plt Count MPV Absolute Nucleated RBC Nucleated RBC % (auto) Sodium 135 136 133 L Potassium 6.0 H* 5.0 5.9 H Chloride 102 101 102 Carbon Dioxide 20 L 20 L 18 L Anion Gap 19 20 19 BUN 43 H 45 H 56 H Creatinine 5.39 H* 5.96 H* 6.56 H* Estim Creat Clear Calc 7.7 6.9 6.3 Estimated GFR 8 7 6 Random Glucose 71 142 H D 84 D Calcium 9.9 D 10.2 9.6 04/11/21 06:14 WBC 10.9 H RBC 2.50 L Hgb 7.9 L Hct 25.4 L MCV 101.6 H MCH 31.6 MCHC 31.1 RDW 13.8 Plt Count 321 MPV 9.2 L Absolute Nucleated RBC 0.000 Nucleated RBC % (auto) 0.0 Sodium Potassium Chloride Carbon Dioxide Anion Gap BUN Creatinine Estim Creat Clear Calc Estimated GFR Random Glucose Calcium Discharge Plan Discharge Patient Disposition: Home Health Service Discharge Diagnosis: UTI, R renal hematoma, hyperkalemia Referrals: Gabriel Acosta MD [Primary Care Provider] - 1 Week Marshal Gould MD [Physician] - 1 Week Discharge Medications: New cefuroxime axetil 250 mg tablet 250 mg PO DAILY Qty: 5 RF: 0 Continued Multaq 400 mg tablet 400 mg PO BID 90 Days Qty: 180 RF: 1 prochlorperazine maleate 5 mg tablet 5 mg PO TID PRN (Reason: for nausea/vomiting) Qty: 30 RF: 0 levothyroxine 125 mcg tablet 125 mcg PO QAM Qty: 90 RF: 1 tamoxifen 20 mg Tablet 20 mg PO DAILY Qty: 90 RF: 4 lamotrigine 150 mg tablet 300 mg PO BEDTIME RF: 0 clonazepam 1 mg tablet 1.5 mg PO BEDTIME RF: 0 acetaminophen 325 mg Tablet 650 mg PO BID PRN (Reason: Pain (Scale Score 1-3)) RF: 0 fluticasone propion-salmeterol [Wixela Inhub] 500-50 mcg/dose Blister With Device 1 inh INHALATION BID RF: 0 sevelamer carbonate 800 mg Tablet 1,600 mg PO TIDWM RF: 0 clozapine 100 mg tablet 250 mg PO BEDTIME RF: 0 hydroxyzine pamoate 50 mg capsule 50 mg PO BEDTIME PRN (Reason: Itching) RF: 0 melatonin 10 mg capsule 20 mg PO BEDTIME PRN (Reason: Insomnia) RF: 0 albuterol sulfate 2.5 mg /3 mL (0.083 %) solution for nebulization 2.5 mg inhalation BID 30 Days Qty: 180 RF: 11 Discharge Orders: Discharge Order (Routine); Ordered 04/11/21 Ordered By: Jaehyun Amisha Diet: advance to usual diet Activity on Discharge: As tolerated Stand Alone Forms: Patient Portal Discharge page Care Plan Goals: cure of urine infection relief of kidney pain Health Concerns: kidney infection kidney hematoma ESRD on dialysis; hyperkalemia Plan of Treatment: take antibiotics [cefuroxime 250 mg daily] x 5 days. if dose falls on dialysis day, take after dialysis continue dialysis MWF follow up with Dr Gould within 1-2 weeks see your primary care doctor in 1 week Assessment: as above Patient Instructions: End Stage Kidney Disease (DC)
[2021-04-11 15:22] LABS: Percent Iron Saturation 24 % (15-50); Total Iron Binding Capacity 226 mcg/dL (228-428); Unsaturated Iron Binding 171 ug/dL
--- NOTE | 2021-04-11 16:13 | PC.NURSE ---
Pt bladder scanned with result of 470cc, Dr. Lion made aware, order to straight cath x1. While gathering supplies to straight cath patient spontaneously voided into bed with result of 300cc. Dr. Lion made aware, cancel straight cath
== END 2021-04-11 17:35 | disposition home health service (06) | DRG 690 ==
LOC: HO.ED 04-06 01:36 → HO.S3 04-06 07:27 → HO.EDOVER 04-08 11:44 → HO.S3 04-08 11:44
PROVIDERS: Hospitalist; Admitting Provider Internal Medicine; Emergency Provider Emergency Medicine; PCP Internal Medicine; Visit Provider Family Medicine
DX: N13.6 Pyonephrosis (principal); C66.9 Malignant neoplasm of unspecified ureter; N18.6 End stage renal disease; I48.0 Paroxysmal atrial fibrillation; F31.9 Bipolar disorder, unspecified; E03.9 Hypothyroidism, unspecified; G40.909 Epilepsy, unspecified, not intractable, without status epilepticus; M79.81 Nontraumatic hematoma of soft tissue; C50.919 Malignant neoplasm of unspecified site of unspecified female breast; D72.829 Elevated white blood cell count, unspecified; Z87.891 Personal history of nicotine dependence; E87.5 Hyperkalemia; Z88.6 Allergy status to analgesic agent; Z79.51 Long term (current) use of inhaled steroids; Z79.810 Long term (current) use of selective estrogen receptor modulators (SERMs); Z79.890 Hormone replacement therapy; Z79.899 Other long term (current) drug therapy
CPT/HCPCS: 0241U; 36415; 74176; 80048; 80076; 81001; 82607; 82728; 82746; 83540; 83605; 83690; 85025; 85027; 87040; 90999; 93005; 94640; 94644; 96365; 96375; 97162; 99218; 99220; 99285; J0610; J0696; J2270; J2405

== ENCOUNTER 2021-04-14 01:03 | Emergency (ER) | payer MEDICARE, BC, SELFPAY ==
--- NOTE | ~2021-04-14 | XR_ITS ---
EXAMINATION: XR CHEST CLINICAL INFORMATION: Cough COMPARISON: 06/17/2020 TECHNIQUE: Frontal view of the chest was obtained. FINDINGS: Left IJ catheter tip lies in the region of the right atrium. Lung volumes are symmetric. Redemonstrated nodular opacity at the left base, noted to be partially calcified on CT 04/06/2021. No new consolidation is seen. No evidence of pneumothorax, pleural effusion, or pulmonary edema. Cardiac size is within normal limits. Calcification is present at the aortic arch. No acute osseous findings are seen. XR/XR chest 1V IMPRESSION: No new acute findings identified. Redemonstrated left basilar nodules, with calcification noted on prior CT suggesting metastatic calcification in the setting of chronic renal failure.
[2021-04-14 01:11] VITALS: BP 87/48; PULSE 83; RESP 16; TEMP 36.5; O2SAT 91; BMI 21.7
[2021-04-14 03:09] LABS: MANUAL DIFF FLAG NO
[2021-04-14 03:48] LABS: Basophils Percent Auto 0.4 % (0-2); Eosinophils Absolute Auto 0.5 X10*3/uL (0.0-0.4); Hematocrit 24.3 % (37-47); Hemoglobin 7.6 g/dl (12.0-16.0); Imm Gran Abs Auto 0.06 X10*3/uL (0.00-0.03); Imm Gran Pct Auto 0.7 % (0.0-0.4); Lymphocytes Absolute Auto 0.9 X10*3/uL (1.2-4.9); Lymphocytes Percent Auto 9.6 % (20-40); Mean Corpuscular HGB Conc 31.3 g/dl (31.0-35.0); Mean Corpuscular Hemoglobin 31.1 pg (27.0-33.0); Mean Corpuscular Volume 99.6 fL (80-98); Mean Platelet Volume 9.3 fL (9.4-12.3); Monocytes Absolute Auto 1.3 X10*3/uL (0.1-1.2); Monocytes Percent Auto 13.9 % (2-11); Neutrophils Absolute Auto 6.3 X10*3/uL (2.0-8.3); Neutrophils Percent Auto 69.4 % (45-73); Platelet Count 299 X10*3/uL (160-400); Red Blood Count 2.44 X10*6/uL (4.20-5.50); Red Cell Distribution Width 13.8 % (11.0-16.0); White Blood Count 9.1 X10*3/uL (4.8-10.8)
--- NOTE | 2021-04-14 05:27 | ED.GENADULT ---
HPI - General Adult General Chief complaint: Back Pain/Injury Stated complaint: back pain Time Seen by Provider: 04/14/21 04:57 Source: patient and family () Mode of arrival: ambulatory History of Present Illness HPI narrative: 75-year-old female who presents with right flank pain after being discharged 2 days ago with subcapsular right renal hematoma and discharged with antibiotics for UTI. Although, currently patient denies any pain and further provides information stating that he was unsure how much Tylenol that he could give to his for pain control. Otherwise, the patient denies any fever, chills, nausea, vomiting, diarrhea, shortness of breath or chest pain. Patient completed her dialysis last night at approximately 8:00 p.m. and stated that she felt discomfort at that time and was initially treated with 325 mg of Tylenol. Related Data Home Medications Medication Instructions Recorded Confirmed clonazepam 1 mg tablet 1.5 mg PO BEDTIME 05/21/20 04/06/21 lamotrigine 150 mg tablet 300 mg PO BEDTIME 05/21/20 04/06/21 acetaminophen 325 mg tablet 650 mg PO BID PRN 05/22/20 04/06/21 fluticasone 500 mcg-salmeterol 50 1 inh INHALATION BID 05/22/20 04/06/21 mcg/dose blistr powdr for inhalation (Wixela Inhub) sevelamer carbonate 800 mg tablet 1,600 mg PO TIDWM 05/22/20 04/06/21 melatonin 10 mg capsule 20 mg PO BEDTIME PRN cap 09/06/20 04/06/21 clozapine 100 mg tablet 250 mg PO BEDTIME 01/04/21 04/06/21 hydroxyzine pamoate 50 mg capsule 50 mg PO BEDTIME PRN 03/21/21 04/06/21 Previous Rx's Medication Instructions Recorded dronedarone 400 mg tablet (Multaq) 400 mg PO BID 90 Days #180 tab 01/26/21 albuterol sulfate 2.5 mg INHALATION BID 30 Days #180 02/05/21 ml prochlorperazine maleate 5 mg 5 mg PO TID PRN #30 tab 03/09/21 tablet levothyroxine 125 mcg tablet 125 mcg PO QAM #90 tab 03/20/21 tamoxifen 20 mg tablet 20 mg PO DAILY #90 tab 03/20/21 cefuroxime axetil 250 mg tablet 250 mg PO DAILY #5 tab 04/11/21 Allergies Allergy/AdvReac Type Severity Reaction Status Date / Time adhesive tape Allergy Intermediate Blister Verified 04/14/21 01:11 aspirin Allergy Intermediate RASH Verified 04/14/21 01:11 benztropine Allergy Intermediate RASH Verified 04/14/21 01:11 NSAIDS (Non-Steroidal Allergy Intermediate RASH Verified 04/14/21 01:11 Anti-Inflamma ziprasidone Allergy Unknown UNKNOWN Verified 04/14/21 01:11 doxycycline AdvReac Vomiting Verified 04/14/21 01:11 oxycodone AdvReac Anaphylaxis Verified 04/14/21 01:11 Review of Systems Review of Systems: Pertinent positives and negatives as stated in HPI 10 point review of systems is otherwise negative. [facility] Past Medical History Source: nursing notes reviewed Medical History Abdominal pain Arrhythmia Arthritis AV fistula Bipolar 1 disorder Bladder cancer Bowel obstruction Breast cancer Bronchopneumonia Cancer Chronic nausea COPD (chronic obstructive pulmonary disease) COVID-19 vaccine administered Dialysis patient Diarrhea Dysphagia ESRD (end stage renal disease) History of 2019 novel coronavirus disease (COVID-19) Hx of hypotension Hx of radiation therapy Hypothyroidism Invasive ductal carcinoma of breast Lab test negative for COVID-19 virus Lab test positive for detection of COVID-19 virus MSSA bacteremia Paroxysmal A-fib Poor appetite Positive FIT (fecal immunochemical test) Pulmonary emboli Renal failure SBO (small bowel obstruction) Thyroid disease Vomiting Wears dentures Surgical History History of abdominal surgery History of appendectomy History of back surgery History of bladder surgery (~06/2020) History of cholecystectomy History of esophagogastroduodenoscopy (EGD) History of hand surgery History of lumpectomy of left breast History of lumpectomy of right breast History of tonsillectomy Hx of colonoscopy Hx of foot surgery Family History Family History Father Dementia Mother Bipolar 1 disorder Brother Heart attack Other Mental health disorder Social History Social History Household Members: Spouse Housing: House Are you a primary long term acute care registered nurse to a significant other at home: No Do you presently have visiting nurse or other home services: Yes Alcohol intake: never Patient Tobacco Use Status: Former Tobacco user Quit Date: 4 years ago Tobacco use type: Cigarette Cigarette Packs Per Day: 1.5 Cigarettes Per Day: 30.0 Years Smoked: 50 e-Cigarette/Vaping Use: Never Used Second Hand Smoke Exposure: No Advance Directives: Yes Advance Directives on File: Yes Advance Directives Date on File: 01/23/21 service: No Current occupational status: disabled Physical Exam Vital Signs: Vital Signs: Last Vital Signs Temp 97.7 F 04/14/21 01:11 Pulse 83 04/14/21 01:11 Resp 16 04/14/21 01:11 BP 87/48 L 04/14/21 01:11 Pulse Ox 91 L 04/14/21 01:11 Body Mass Index 21.7 VITAL SIGNS: Reviewed. GENERAL: Chronically ill, in no acute distress. HEAD: Normocephalic/atraumatic EYES: PERRLA, EOMI EARS: Ext canals without abnormality NOSE: Nares patent bilateral OROPHARYNX: no oral lesions noted, posterior pharynx clear LUNGS: Normal breath sounds, mildly decreased in bilateral bases, dialysis catheter noted to left upper chest wall without erythema. CARDIOVASCULAR: Regular rate and rhythm without noted murmurs ABDOMEN: Soft, no tenderness on palpation at right flank currently, non-distended with bowel sounds. SKIN: Inspection of the skin reveals no rashes NEUROLOGIC: Alert and oriented x 4. Strength and sensation to light touch were grossly intact x 4. Course Course Course Narrative: 75-year-old female with history and clinical presentation in discussion with her regarding appropriate pain control. The Tylenol has been working well, but was unsure of how much Tylenol to give to the patient. We had a lengthy discussion regarding maximal daily dose and possible dosing scheme that he can use for her pain control. She is currently asymptomatic and on review of all investigations there are no acute findings when compared to prior. Patient is currently being treated for her UTI and will not repeat urinalysis at this time. Medical Decision Making Lab Data Result diagrams: 04/14/21 03:05 04/14/21 04:15 Labs: Lab Results 04/14/21 04/14/21 Range/Units 03:05 04:15 WBC 9.1 (4.8-10.8) X10*3/uL RBC 2.44 L (4.20-5.50) X10*6/uL Hgb 7.6 L (12.0-16.0) g/dl Hct 24.3 L (37-47) % MCV 99.6 H (80-98) fL MCH 31.1 (27.0-33.0) pg MCHC 31.3 (31.0-35.0) g/dl RDW 13.8 (11.0-16.0) % Plt Count 299 (160-400) X10*3/uL MPV 9.3 L (9.4-12.3) fL Immature Gran % (Auto) 0.7 H (0.0-0.4) % Neut % (Auto) 69.4 (45-73) % Lymph % (Auto) 9.6 L (20-40) % [place] % (Auto) 13.9 H (2-11) % Eos % (Auto) 6.0 H (0-4) % Baso % (Auto) 0.4 (0-2) % Lymph # (Auto) 0.9 L (1.2-4.9) X10*3/uL [place] # (Auto) 1.3 H (0.1-1.2) X10*3/uL Eos # (Auto) 0.5 H (0.0-0.4) X10*3/uL Baso # (Auto) 0.0 (0.0-0.2) X10*3/uL Abs Immat Gran (auto) 0.06 H (0.00-0.03) X10*3/uL Absolute Neuts (auto) 6.3 (2.0-8.3) X10*3/uL Absolute Nucleated RBC 0.000 (0.0-0.012) X10*3/uL Nucleated RBC % (auto) 0.0 (0.0-0.2) /100WBC Sodium 137 (135-145) mmol/L Potassium 3.6 D (3.3-5.1) mmol/L Chloride 100 (96-108) mmol/L Carbon Dioxide 28 (22-29) mmol/L Anion Gap 13 (12-20) BUN 17 H D (9-16) mg/dL Creatinine 3.35 H (0.5-1.4) mg/dL Estim Creat Clear Calc 12.3 Estimated GFR 13 Random Glucose 83 (60-115) mg/dL Calcium 9.8 (8.4-10.2) mg/dL Total Bilirubin 0.4 (0.0-1.0) mg/dL AST 9 (5-31) U/L ALT 6 (0-31) U/L Alkaline Phosphatase 112 D (39-117) U/L Total Protein 5.5 L (6.5-8.0) g/dL Albumin 3.1 L (3.5-5.0) g/dL Discharge Plan Discharge Clinical Impression: History of right flank pain Patient Disposition: Home, Self-Care Instructions: Flank Pain (ED) Additional Instructions: 1. Tylenol 1000 mg, orally, every 6 hours as needed for pain control. Do not exceed 4000 mg within 24 hours. 2. Resume all home medications as prescribed. 3. Please follow-up with your primary care provider and urology on Friday morning for re-evaluation. Do not hesitate to return to the emergency room should you experience any acute worsening of symptoms. Prescriptions: No Action Multaq 400 mg tablet 400 mg PO BID 90 Days Qty: 180 RF: 1 prochlorperazine maleate 5 mg tablet 5 mg PO TID PRN (Reason: for nausea/vomiting) Qty: 30 RF: 0 levothyroxine 125 mcg tablet 125 mcg PO QAM Qty: 90 RF: 1 tamoxifen 20 mg Tablet 20 mg PO DAILY Qty: 90 RF: 4 cefuroxime axetil 250 mg tablet 250 mg PO DAILY Qty: 5 RF: 0 lamotrigine 150 mg tablet 300 mg PO BEDTIME RF: 0 clonazepam 1 mg tablet 1.5 mg PO BEDTIME RF: 0 acetaminophen 325 mg Tablet 650 mg PO BID PRN (Reason: Pain (Scale Score 1-3)) RF: 0 fluticasone propion-salmeterol [Wixela Inhub] 500-50 mcg/dose Blister With Device 1 inh INHALATION BID RF: 0 sevelamer carbonate 800 mg Tablet 1,600 mg PO TIDWM RF: 0 clozapine 100 mg tablet 250 mg PO BEDTIME RF: 0 hydroxyzine pamoate 50 mg capsule 50 mg PO BEDTIME PRN (Reason: Itching) RF: 0 melatonin 10 mg capsule 20 mg PO BEDTIME PRN (Reason: Insomnia) RF: 0 albuterol sulfate 2.5 mg /3 mL (0.083 %) solution for nebulization 2.5 mg inhalation BID 30 Days Qty: 180 RF: 11 Referrals: Physician,Unknown [Primary Care Provider] - 2 days
[2021-04-14 05:37] LABS: Alanine Aminotransferase 6 U/L (0-31); Albumin Level 3.1 g/dL (3.5-5.0); Alkaline Phosphatase 112 U/L (39-117); Anion Gap 13 (12-20); Aspartate Amino Transferase 9 U/L (5-31); Blood Urea Nitrogen 17 mg/dL (9-16); Calcium 9.8 mg/dL (8.4-10.2); Carbon Dioxide 28 mmol/L (22-29); Chloride 100 mmol/L (96-108); Creatinine Clr Calc Pharmacy 12.3; Estimated Glomerular Filt Rate 13; Glucose Random 83 mg/dL (60-115); Potassium 3.6 mmol/L (3.3-5.1); Sodium 137 mmol/L (135-145); Total Protein 5.5 g/dL (6.5-8.0)
[2021-04-14 05:49] LABS: Bilirubin Total 0.4 mg/dL (0.0-1.0)
[2021-04-14 06:03] VITALS: BP 104/40; PULSE 84; RESP 16; O2SAT 93
== END 2021-04-14 06:22 | disposition home or self-care (01) ==
PROVIDERS: Emergency Provider Student in an Organized Health Care Education/Training Program
DX: R10.9 Unspecified abdominal pain (principal); I48.0 Paroxysmal atrial fibrillation; N18.6 End stage renal disease; Z99.2 Dependence on renal dialysis; Z85.51 Personal history of malignant neoplasm of bladder; Z85.3 Personal history of malignant neoplasm of breast; Z86.711 Personal history of pulmonary embolism; Z79.899 Other long term (current) drug therapy
CPT/HCPCS: 36415; 71045; 80053; 85025; 99283

== ENCOUNTER → 2021-04-26 15:37 | Outpatient (BNVA) | payer MEDICARE, BC, SELFPAY | PROVIDERS: Visit Provider Surgery | DX: C50.919 Malignant neoplasm of unspecified site of unspecified female breast (principal); Z79.810 Long term (current) use of selective estrogen receptor modulators (SERMs) | CPT/HCPCS: 99212 ==

== ENCOUNTER 2021-05-14 14:30 | Outpatient (REF) | payer MEDICARE, BC, SELFPAY | END 2021-05-14 14:31 | disposition home or self-care (01) | LOC: HO.LAB 14:30 | PROVIDERS: PCP Internal Medicine | DX: R31.9 Hematuria, unspecified (principal); C67.9 Malignant neoplasm of bladder, unspecified | CPT/HCPCS: 87086; 99212 ==

== ENCOUNTER → 2021-06-15 13:03 | Outpatient (BNVA) | payer MEDICARE, BC, SELFPAY | PROVIDERS: Visit Provider Urology | DX: C67.9 Malignant neoplasm of bladder, unspecified (principal) | CPT/HCPCS: 52310; 99212 ==

== ENCOUNTER → 2021-07-05 13:01 | Outpatient (BNVA) | payer MEDICARE, BC, SELFPAY | PROVIDERS: PCP Internal Medicine; Visit Provider Hospitalist | DX: J96.11 Chronic respiratory failure with hypoxia (principal); J41.8 Mixed simple and mucopurulent chronic bronchitis; R13.10 Dysphagia, unspecified; U07.1 COVID-19; I48.0 Paroxysmal atrial fibrillation; N18.6 End stage renal disease; Z72.0 Tobacco use; Z88.9 Allergy status to unspecified drugs, medicaments and biological substances; Z88.6 Allergy status to analgesic agent; Z88.1 Allergy status to other antibiotic agents; Z88.8 Allergy status to other drugs, medicaments and biological substances; Z99.2 Dependence on renal dialysis; Z99.3 Dependence on wheelchair; Z99.81 Dependence on supplemental oxygen | CPT/HCPCS: 99212 ==

== ENCOUNTER 2021-07-15 09:31 | Emergency (ER) | payer MEDICARE, BC, SELFPAY ==
[2021-07-15] VITALS (15 sets, daily range): BP systolic 63–121; BP diastolic 28–71; PULSE 95–109; RESP 12–18; TEMP 36.4–36.7; O2SAT 91–97; BMI 21.2
--- NOTE | ~2021-07-15 | CT_ITS ---
EXAMINATION: CT ABDOMEN AND PELVIS WITHOUT CONTRAST CLINICAL INFORMATION: Abdominal pain, nausea and vomiting. Evaluate for small bowel obstruction. COMPARISON: 04/06/2021 TECHNIQUE: Multidetector volumetric imaging was performed from the superior aspect of the liver through the pubic symphysis. Sagittal and coronal reformatted images were obtained on the technologist's workstation. This CT examination was performed using dose optimization techniques as appropriate, variously including the following: *Automated exposure control *Adjustment of mA and/or kV according to patient size (this includes techniques or standardized protocols for targeted exams where dose is matched to indication/reason for exam; i.e. extremities or head) *Use of iterative reconstruction technique DLP: 553 mGy-cm FINDINGS: LUNG BASES: Respiratory motion on images acquired through the lung bases. Interval increased opacity in the posterior right lower lobe from worsening atelectasis and/or airspace disease. Query if there is any clinical suspicion for an active pneumonia. No pleural effusion. Small 0.4 cm nodular opacity in the medial segment right middle lobe is stable compared to 03/21/2021. There are persistent patchy nodular opacities in the visualized left lower lung, and this is not significantly changed compared to 04/06/2021. Atherosclerotic calcification of coronary arteries and thoracic aorta. There appears to be an old focus of fluid attenuation in the partially visualized inferior right breast. Multiple scattered breast calcifications. HEPATOBILIARY: New finding of branching gas within the liver, consistent with portal venous gas. Gallbladder is surgically absent. No focal hepatic lesion. No evidence of biliary tract obstruction. PANCREAS: No acute abnormalities in the atrophied pancreas. SPLEEN: Normal. ADRENAL GLANDS: The right adrenal gland is normal. A noncalcified nodule of the left adrenal gland measures approximately 2.3 x 3 cm and has density of 30 HU on these noncontrast images. Therefore, this is not a lipid rich adenoma. It was 1.6 x 2.4 cm on 10/23/2016 and 1.7 x 2.4 cm on 03/23/2020, but is stable in size compared to 03/21/2021. KIDNEYS AND URETERS: Kidneys are chronically abnormal. Again noted are multiple cysts scattered throughout both kidneys, not optimally characterized on this noncontrast examination, although there are some simple cysts. Note that renal imaging follow-up is is not recommended for simple cysts. The cystic foci are not well characterized on this particular examination. There are renal vascular calcifications and possible parenchymal calcifications. A stable 1.3 cm structure of the anterior lower pole of the left kidney with density of 60 HU probably represents a proteinaceous cyst. No hydroureteronephrosis. BLADDER: Normal. No calculi or wall thickening. BOWEL AND PERITONEUM: Prior right hemicolectomy. The enterocolonic anastomosis is observed in the right mid abdomen. Also, there is a small bowel anastomosis in the right pelvis. There is gaseous distention of small bowel, and the most dilated loops measure up to at least 5.5 cm diameter. It is difficult to define a specific transition point from dilated to nondilated bowel on this noncontrast examination. There appears to be a region of transition in the vicinity of the small bowel anastomosis in the right pelvis. No overt wall thickening of the small bowel. There appears to be pneumatosis intestinalis involving a small bowel loop within the pelvis, and gas is present within a few mesenteric veins. No pneumoperitoneum. Trace amount of free fluid is present within the abdomen. The colon is underdistended. ABDOMINAL WALL: No acute abnormality. VASCULATURE: Dense atherosclerotic calcification of the abdominal aorta and iliofemoral vessels. 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 The infrarenal aorta measures up to 2.5 cm AP diameter. LYMPH NODES: Stable mild prominence of retroperitoneal lymph nodes with largest left periaortic lymph node 1 cm short axis dimension, unchanged. No enlarging lymph nodes. No iliac or inguinal lymphadenopathy. PELVIC VISCERA: No evidence of uterine or adnexal mass. Trace amount of free fluid is observed within the pelvis. SKELETAL: Mild levocurvature of the degenerated lumbar spine. No aggressive osseous lesion. [id number] osteoarthritis the right hip and mild osteoarthritis of the left hip. CT/CT abdomen pelvis wo con IMPRESSION: * Findings consistent with small bowel obstruction. The bowel is not optimally evaluated on this noncontrast examination. The region of transition from dilated to nondilated bowel appears to be in the vicinity of the small bowel anastomosis in the right pelvis. There are additional findings suspicious for pneumatosis intestinalis with mesenteric gas and portal venous gas. No pneumoperitoneum. * Chronic bilateral renal cortical atrophy and severe cystic changes affecting both kidneys. * Nonspecific left adrenal nodule is larger compared to more remote exams, but stable compared to 03/21/2021. * Atherosclerotic disease of the aorta and iliofemoral vessels. * Stable appearance of the slightly prominent retroperitoneal lymph nodes. No enlarging lymph nodes. * No significant change in previously observed nodular pulmonary opacities. Interval increased opacity from atelectasis or pneumonia in the posterior right lower lobe. The critical test result was discussed with LORENZA Ruiz, at 1:03 pm on 07/15/2021 and it was ascertained that the content and the importance of the findings was understood at the time of the direct communication.
--- NOTE | ~2021-07-15 | XR_ITS ---
EXAMINATION: XR CHEST CLINICAL INFORMATION: Confirm NG tube placement. COMPARISON: Chest x-ray portable 04/06/2021 TECHNIQUE: Frontal portable view of the chest was obtained. 1825 hours FINDINGS: Nasogastric tube passes below diaphragm into the stomach. Catheter tip below lower margin of film. Left IJ catheter tip at caval atrial junction. Lung volume low. Bibasilar streaky and patchy airspace opacities accentuated by the low inspiratory effort. There is no pulmonary vascular congestion. No pleural effusion or pneumothorax. Vascular stents in the soft tissues of the upper arms bilateral. Marked arthropathy of the right glenohumeral joint. XR/XR chest 1V IMPRESSION: Nasogastric tube passing below diaphragm into stomach. Persistent bibasilar airspace opacities. Low lung volumes.
--- NOTE | 2021-07-15 10:01 | ECG_ITS ---
Test Reason : ABDOMINAL PAIN Blood Pressure : / mmHG Vent. Rate : 103 BPM Atrial Rate : 103 BPM P-R Int : 150 ms QRS Dur : 082 ms QT Int : 380 ms P-R-T Axes : 038 029 064 degrees QTc Int : 497 ms Sinus tachycardia Possible Left atrial enlargement Nonspecific ST abnormality Abnormal ECG When compared with ECG of 10-APR-2021 16:25, ST now depressed in Anterior leads Lateral leads QT has lengthened Referred By: Ro Aguilar Electronically Signed By:STANLEY BAL MD
--- NOTE | 2021-07-15 10:06 | ED.ABDPAIN ---
HPI - Abdominal Pain General Chief Complaint: Abdominal Pain <LORENZA Ruiz Last Filed: 07/15/21 17:47> Stated Complaint: abd pain, vomiting <LORENZA Ruiz Last Filed: 07/15/21 17:47> Time Seen by Provider: 07/15/21 09:42 <LORENZA Ruiz Last Filed: 07/15/21 17:47> Source: patient, family and EMS <LORENZA Ruiz Last Filed: 07/15/21 17:47> Mode of arrival: EMS <LORENZA Ruiz Last Filed: 07/15/21 17:47> History of Present Illness HPI narrative: 75-year-old female with PMHx ureteral cancer s/p uterolysis stents, AFib, ESRD on HD (M/W/F), hypothyroid, renal hematoma, multiple SBOs, BIBA c/o nausea, projectile vomiting, and abdominal pain since 2:00 a.m. denies fever, chills, dysuria/hematuria, CP/SOB <LORENZA Ruiz Last Filed: 07/15/21 17:47> MD elicited complaint: abdominal pain <LORENZA Ruiz Last Filed: 07/15/21 17:47> Related Data Home Medications: Home Medications Medication Instructions Recorded Confirmed clonazepam 1 mg tablet 1.5 mg PO BEDTIME 05/21/20 07/15/21 lamotrigine 150 mg tablet 300 mg PO BEDTIME 05/21/20 07/15/21 acetaminophen 325 mg tablet 650 mg PO BID PRN 05/22/20 07/15/21 sevelamer carbonate 800 mg tablet 800 mg PO TIDWM 05/22/20 07/15/21 clozapine 100 mg tablet 250 mg PO BEDTIME 01/04/21 07/15/21 fluticasone 500 mcg-salmeterol 50 1 inh INHALATION DAILY 07/15/21 07/15/21 mcg/dose blistr powdr for inhalation (Wixela Inhub) melatonin 3 mg tablet 6 mg PO BEDTIME PRN 07/15/21 07/15/21 tamoxifen 20 mg tablet 20 mg PO DAILY@1400 07/15/21 07/15/21 Previous Rx's Medication Instructions Recorded albuterol sulfate 2.5 mg (3 mL) INHALATION BID 30 02/05/21 Days #180 ml prochlorperazine maleate 5 mg 5 mg PO TID PRN #30 tab 03/09/21 tablet levothyroxine 125 mcg tablet 125 mcg PO QAM #90 tab 03/20/21 dronedarone 400 mg tablet (Multaq) 400 mg PO BID 90 Days #180 tab 05/01/21 hydroxyzine pamoate 50 mg capsule 50 mg PO BEDTIME PRN #90 cap 05/27/21 benzonatate 200 mg capsule 200 mg PO BID PRN 30 Days #30 cap 07/05/21 <LORENZA Ruiz Last Filed: 07/15/21 17:47> Allergies/Adverse Reactions: Allergies Allergy/AdvReac Type Severity Reaction Status Date / Time adhesive tape Allergy Intermediate Blister Verified 07/05/21 13:09 aspirin Allergy Intermediate RASH Verified 07/05/21 13:09 benztropine Allergy Intermediate RASH Verified 07/05/21 13:09 NSAIDS (Non-Steroidal Allergy Intermediate RASH Verified 07/05/21 13:09 Anti-Inflamma ziprasidone Allergy Intermediate UNKNOWN Verified 07/05/21 13:09 doxycycline AdvReac Vomiting Verified 07/05/21 13:09 oxycodone AdvReac Anaphylaxis Verified 07/05/21 13:09 <LORENZA Ruiz Last Filed: 07/15/21 17:47> Review of Systems Review of Systems Constitutional: No Fever, No Chills, No Fatigue, No Malaise ENT/Mouth: No Ear Pain, No Nasal Congestion, No sore throat, No Swallowing Difficulty Eyes: No Eye Pain, No Swelling, No Vision Changes Cardiovascular: No Chest Pain, No SOB, No Edema Respiratory: No Cough, No Dyspnea Gastrointestinal: + Nausea, + Vomiting, No Diarrhea, No Constipation, + Abdominal pain, Genitourinary: No Dysuria, No Urinary Frequency, No Hematuria,No Flank Pain, No Urinary Flow Changes, No Hesitancy Musculoskeletal: No joint pain, No Myalgias, No Joint Swelling Skin: No Skin Lesions, No rash Neuro: No Weakness, No Numbness, No Headache <LORENZA Ruiz Last Filed: 07/15/21 17:47> Yes all other systems are reviewed and are negative <LORENZA Ruiz Last Filed: 07/15/21 17:47> Physical Exam Vital Signs: Vital Signs: Last Vital Signs Temp 97.6 F 07/15/21 20:00 Pulse 100 07/15/21 20:00 Resp 15 07/15/21 20:00 BP 116/48 L 07/15/21 20:00 Pulse Ox 92 07/15/21 20:00 Oxygen Flow Rate 2 07/15/21 09:48 Body Mass Index 21.2 <LORENZA Ruiz - Last Filed: 07/15/21 17:47> Vital Signs: Last Vital Signs Temp 97.6 F 07/15/21 20:00 Pulse 100 07/15/21 20:00 Resp 15 07/15/21 20:00 BP 116/48 L 07/15/21 20:00 Pulse Ox 92 07/15/21 20:00 Oxygen Flow Rate 2 07/15/21 09:48 Body Mass Index 21.2 <Fidel Edward MD - Last Filed: 07/15/21 20:19> Const: General: cooperative, healthy appearing and no acute distress <LORENZA Ruiz - Last Filed: 07/15/21 17:47> Orientation/consciousness: patient oriented x3 <LORENZA Ruiz - Last Filed: 07/15/21 17:47> Limitations: no limitations <LORENZA Ruiz - Last Filed: 07/15/21 17:47> HENMT: Head: Yes normal to inspection and Yes atraumatic <LORENZA Ruiz - Last Filed: 07/15/21 17:47> Ears: hearing grossly normal bilaterally <LORENZA Ruiz - Last Filed: 07/15/21 17:47> General nose exam: Normal external nose present <LORENZA Ruiz - Last Filed: 07/15/21 17:47> Face and sinus: Yes normal facial exam <LORENZA Ruiz - Last Filed: 07/15/21 17:47> Eyes: General: appearance normal, both eyes and all related structures <LORENZA Ruiz - Last Filed: 07/15/21 17:47> EOM: EOMs intact bilaterally <LORENZA Ruiz - Last Filed: 07/15/21 17:47> Neck: Neck: Yes normal visual inspection and Yes no meningeal signs <LORENZA Ruiz - Last Filed: 07/15/21 17:47> Resp: Effort & Inspection: normal respiratory effort <LORENZA Ruiz - Last Filed: 07/15/21 17:47> Auscultation: clear to auscultation bilaterally, no rales and no wheezes <Ro Aguilar NV - Last Filed: 07/15/21 17:47> Cardio: Rate: regular rate <Ro Aguilar NV - Last Filed: 07/15/21 17:47> Heart sounds: S1 normal heart sound present and S2 normal heart sound present <Ro Aguilar NV - Last Filed: 07/15/21 17:47> GI: Palpation (GI): Soft to palpation, Tenderness to palpation present (GI) in the RLQ and periumbilically, no guarding and not rigid <Ro Aguilar NV - Last Filed: 07/15/21 17:47> Auscultation: Hypoactive bowel sounds present <Ro Aguilar NV - Last Filed: 07/15/21 17:47> : General: Yes no CVA tenderness <Ro Aguilar NV - Last Filed: 07/15/21 17:47> Back/Spine/Pelvis: Back: no CVA tenderness <Ro Aguilar NV - Last Filed: 07/15/21 17:47> Skin: Rashes: no rashes <Ro Aguilar NV - Last Filed: 07/15/21 17:47> Wounds: no wounds <Ro Aguilar NV - Last Filed: 07/15/21 17:47> Neuro: General: patient oriented x3, tone normal, moves all extremities and no meningeal signs <Ro Aguilar NV - Last Filed: 07/15/21 17:47> Extrem: General: Yes normal to inspection and Yes no pedal edema <LORENZA Ruiz - Last Filed: 07/15/21 17:47> Procedures Procedure Narrative Procedure Narrative: Nasogastric tube placement: Topical lidocaine spray applied NG tube placed to left nostril with gastric confirmed with gastric contents draining from tubing No complications of procedure <LORENZA Ruiz - Last Filed: 07/15/21 17:47> Course Course Course Narrative: -1049--no leukocytosis. H&H stable. Chronic CKD with creatinine 6.62. Lactic acid negative. BNP chronically elevated > patient does not meet severe sepsis criteria -avoiding excessive IVF secondary to patient's chronic renal failure -1327--received call from [facility] patient has SBO as well as pneumatosis intestinalis with air in the portal venous system > Consulted surgery Dr. Cedillo Will place NG tube -Dr. Cedillo would like patient to go to the ICU however there are currently no ICU beds available. Spoke to clinical project manager Dr. Israel who will evaluate patient in the ED to determine whether patient is in ICU candidate. -Dr. Israel evaluated patient in the ED does not deem patient needing ICU level care. -about 800 cc gastric fluid emesis collected while inserting NG tube -1717--plan per Dr. Cedillo & Dr. Israel will be to transfer patient for higher level of surgical care -1800--ED care transferred to Dr. Edward pending transfer <LORENZA Ruiz Last Filed: 07/15/21 17:47> MDM - Abdominal Pain MDM Narrative Medical decision making narrative: 75-year-old female with PMHx ureteral cancer s/p uterolysis stents, AFib, ESRD on HD (M/W/F), hypothyroid, renal hematoma, multiple SBOs, BIBA c/o nausea, projectile vomiting, and abdominal pain since 2:00 a.m. on exam hypotensive, tachycardic, abdomen soft with periumbilical/RLQ tenderness to palpation, no rebound or guarding, hypoactive bowel sounds noted. Concern for SBO. R/o appendicitis/diverticulitis vs infectious etiology and metabolic abnormalities including dehydration. Low concern for severe sepsis at this time, tachycardia/hypertension likely from dehydration from persistent N/V Plan EKG, labs, UA, CT abdomen/pelvis, lactic/blood cultures, empiric IV antibiotics, anticipated admission <LORENZA Ruiz - Last Filed: 07/15/21 17:47> Medical Records Attestation: I reviewed the patient's medical records. <LORENZA Ruiz Last Filed: 07/15/21 17:47> Lab Data Attestation: I reviewed the patient's lab results. <LORENZA Ruiz - Last Filed: 07/15/21 17:47> Result diagrams: : 07/15/21 10:13 07/15/21 10:13 <LORENZA Ruiz - Last Filed: 07/15/21 17:47> Labs: Lab Results 07/15/21 07/15/21 07/15/21 Range/Units 10:13 10:13 10:17 WBC 8.4 (4.8-10.8) X10*3/uL RBC 3.44 L (4.20-5.50) X10*6/uL Hgb 11.1 L (12.0-16.0) g/dl Hct 34.1 L (37.0-47.0) % MCV 99.1 H (80.0-98.0) fL MCH 32.3 (27.0-33.0) pg MCHC 32.6 (31.0-35.0) g/dl RDW 13.2 (11.0-16.0) % Plt Count 239 (160-400) X10*3/uL MPV 9.7 (9.4-12.3) fL Immature Gran % (Auto) 0.5 H (0.0-0.4) % Neut % (Auto) 78.4 H (45-73) % Lymph % (Auto) 7.3 L (20-40) % [place] % (Auto) 12.5 H (2-11) % Eos % (Auto) 1.1 (0-4) % Baso % (Auto) 0.2 (0-2) % Lymph # (Auto) 0.6 L (1.2-4.9) X10*3/uL [place] # (Auto) 1.1 (0.1-1.2) X10*3/uL Eos # (Auto) 0.1 (0.0-0.4) X10*3/uL Baso # (Auto) 0.0 (0.0-0.2) X10*3/uL Abs Immat Gran (auto) 0.04 H (0.00-0.03) X10*3/uL Absolute Neuts (auto) 6.6 (2.0-8.3) x10*3/uL Absolute Nucleated RBC 0.000 (0.0-0.012) X10*3/uL Nucleated RBC % (auto) 0.0 (0.0-0.2) /100WBC Sodium 144 (135-145) mmol/L Potassium 4.2 (3.3-5.1) mmol/L Chloride 99 (96-108) mmol/L Carbon Dioxide 27 (22-29) mmol/L Anion Gap 22 H (12-20) BUN 47 H D (9-16) mg/dL Creatinine 6.62 H* (0.5-1.4) mg/dL Estim Creat Clear Calc 6.2 Estimated GFR 6 Random Glucose 131 H (60-115) mg/dL Lactic Acid 1.5 (0.5-2.0) mmol/L Calcium 9.9 (8.4-10.2) mg/dL Magnesium 1.9 (1.6-2.6) mg/dL Total Bilirubin 0.4 (0.0-1.0) mg/dL Direct Bilirubin 0.2 (0.0-0.5) mg/dL AST 9 (5-31) U/L ALT 9 (0-31) U/L Alkaline Phosphatase 111 (39-117) U/L B-Natriuretic Peptide (<100) pg/mL Total Protein 6.0 L (6.5-8.0) g/dL Albumin 3.3 L (3.5-5.0) g/dL Lipase 28 (8-78) U/L COVID-19 ([facility]) (Negative) COVID-19 Clin Com 07/15/21 07/15/21 Range/Units 10:17 17:45 WBC (4.8-10.8) X10*3/uL RBC (4.20-5.50) X10*6/uL Hgb (12.0-16.0) g/dl Hct (37.0-47.0) % MCV (80.0-98.0) fL MCH (27.0-33.0) pg MCHC (31.0-35.0) g/dl RDW (11.0-16.0) % Plt Count (160-400) X10*3/uL MPV (9.4-12.3) fL Immature Gran % (Auto) (0.0-0.4) % Neut % (Auto) (45-73) % Lymph % (Auto) (20-40) % [place] % (Auto) (2-11) % Eos % (Auto) (0-4) % Baso % (Auto) (0-2) % Lymph # (Auto) (1.2-4.9) X10*3/uL [place] # (Auto) (0.1-1.2) X10*3/uL Eos # (Auto) (0.0-0.4) X10*3/uL Baso # (Auto) (0.0-0.2) X10*3/uL Abs Immat Gran (auto) (0.00-0.03) X10*3/uL Absolute Neuts (auto) (2.0-8.3) x10*3/uL Absolute Nucleated RBC (0.0-0.012) X10*3/uL Nucleated RBC % (auto) (0.0-0.2) /100WBC Sodium (135-145) mmol/L Potassium (3.3-5.1) mmol/L Chloride (96-108) mmol/L Carbon Dioxide (22-29) mmol/L Anion Gap (12-20) BUN (9-16) mg/dL Creatinine (0.5-1.4) mg/dL Estim Creat Clear Calc Estimated GFR Random Glucose (60-115) mg/dL Lactic Acid (0.5-2.0) mmol/L Calcium (8.4-10.2) mg/dL Magnesium (1.6-2.6) mg/dL Total Bilirubin (0.0-1.0) mg/dL Direct Bilirubin (0.0-0.5) mg/dL AST (5-31) U/L ALT (0-31) U/L Alkaline Phosphatase (39-117) U/L B-Natriuretic Peptide 185 H (<100) pg/mL Total Protein (6.5-8.0) g/dL Albumin (3.5-5.0) g/dL Lipase (8-78) U/L COVID-19 ([facility]) Negative (Negative) COVID-19 Clin Com See Note <LORENZA Ruiz - Last Filed: 07/15/21 17:47> Lab Results 07/15/21 07/15/21 07/15/21 Range/Units 10:13 10:13 10:17 WBC 8.4 (4.8-10.8) X10*3/uL RBC 3.44 L (4.20-5.50) X10*6/uL Hgb 11.1 L (12.0-16.0) g/dl Hct 34.1 L (37.0-47.0) % MCV 99.1 H (80.0-98.0) fL MCH 32.3 (27.0-33.0) pg MCHC 32.6 (31.0-35.0) g/dl RDW 13.2 (11.0-16.0) % Plt Count 239 (160-400) X10*3/uL MPV 9.7 (9.4-12.3) fL Immature Gran % (Auto) 0.5 H (0.0-0.4) % Neut % (Auto) 78.4 H (45-73) % Lymph % (Auto) 7.3 L (20-40) % [place] % (Auto) 12.5 H (2-11) % Eos % (Auto) 1.1 (0-4) % Baso % (Auto) 0.2 (0-2) % Lymph # (Auto) 0.6 L (1.2-4.9) X10*3/uL [place] # (Auto) 1.1 (0.1-1.2) X10*3/uL Eos # (Auto) 0.1 (0.0-0.4) X10*3/uL Baso # (Auto) 0.0 (0.0-0.2) X10*3/uL Abs Immat Gran (auto) 0.04 H (0.00-0.03) X10*3/uL Absolute Neuts (auto) 6.6 (2.0-8.3) x10*3/uL Absolute Nucleated RBC 0.000 (0.0-0.012) X10*3/uL Nucleated RBC % (auto) 0.0 (0.0-0.2) /100WBC Sodium 144 (135-145) mmol/L Potassium 4.2 (3.3-5.1) mmol/L Chloride 99 (96-108) mmol/L Carbon Dioxide 27 (22-29) mmol/L Anion Gap 22 H (12-20) BUN 47 H D (9-16) mg/dL Creatinine 6.62 H* (0.5-1.4) mg/dL Estim Creat Clear Calc 6.2 Estimated GFR 6 Random Glucose 131 H (60-115) mg/dL Lactic Acid 1.5 (0.5-2.0) mmol/L Calcium 9.9 (8.4-10.2) mg/dL Magnesium 1.9 (1.6-2.6) mg/dL Total Bilirubin 0.4 (0.0-1.0) mg/dL Direct Bilirubin 0.2 (0.0-0.5) mg/dL AST 9 (5-31) U/L ALT 9 (0-31) U/L Alkaline Phosphatase 111 (39-117) U/L B-Natriuretic Peptide (<100) pg/mL Total Protein 6.0 L (6.5-8.0) g/dL Albumin 3.3 L (3.5-5.0) g/dL Lipase 28 (8-78) U/L COVID-19 ([facility]) (Negative) COVID-19 Clin Com 07/15/21 07/15/21 Range/Units 10:17 17:45 WBC (4.8-10.8) X10*3/uL RBC (4.20-5.50) X10*6/uL Hgb (12.0-16.0) g/dl Hct (37.0-47.0) % MCV (80.0-98.0) fL MCH (27.0-33.0) pg MCHC (31.0-35.0) g/dl RDW (11.0-16.0) % Plt Count (160-400) X10*3/uL MPV (9.4-12.3) fL Immature Gran % (Auto) (0.0-0.4) % Neut % (Auto) (45-73) % Lymph % (Auto) (20-40) % [place] % (Auto) (2-11) % Eos % (Auto) (0-4) % Baso % (Auto) (0-2) % Lymph # (Auto) (1.2-4.9) X10*3/uL [place] # (Auto) (0.1-1.2) X10*3/uL Eos # (Auto) (0.0-0.4) X10*3/uL Baso # (Auto) (0.0-0.2) X10*3/uL Abs Immat Gran (auto) (0.00-0.03) X10*3/uL Absolute Neuts (auto) (2.0-8.3) x10*3/uL Absolute Nucleated RBC (0.0-0.012) X10*3/uL Nucleated RBC % (auto) (0.0-0.2) /100WBC Sodium (135-145) mmol/L Potassium (3.3-5.1) mmol/L Chloride (96-108) mmol/L Carbon Dioxide (22-29) mmol/L Anion Gap (12-20) BUN (9-16) mg/dL Creatinine (0.5-1.4) mg/dL Estim Creat Clear Calc Estimated GFR Random Glucose (60-115) mg/dL Lactic Acid (0.5-2.0) mmol/L Calcium (8.4-10.2) mg/dL Magnesium (1.6-2.6) mg/dL Total Bilirubin (0.0-1.0) mg/dL Direct Bilirubin (0.0-0.5) mg/dL AST (5-31) U/L ALT (0-31) U/L Alkaline Phosphatase (39-117) U/L B-Natriuretic Peptide 185 H (<100) pg/mL Total Protein (6.5-8.0) g/dL Albumin (3.5-5.0) g/dL Lipase (8-78) U/L COVID-19 ([facility]) Negative (Negative) COVID-19 Clin Com See Note <Fidel Edward MD - Last Filed: 07/15/21 20:19> Critical Care Time Critical Care Time Critical Care Time: Yes <LORENZA Ruiz - Last Filed: 07/15/21 17:47> Total Critical Care Time: 36 <LORENZA Ruiz - Last Filed: 07/15/21 17:47> Attestation: > 36 minutes of critical care time was spent evaluating patient, performing chart review, speaking with family, speaking with consultants, reviewing labs, reviewing imaging, & re-evaluating patient. <LORENZA Ruiz - Last Filed: 07/15/21 17:47> Discharge Plan Discharge Clinical Impression: SBO (small bowel obstruction), Pneumatosis intestinalis <LORENZA Ruiz - Last Filed: 07/15/21 17:47> Patient Disposition: Admitted As Inpatient <LORENZA Ruiz - Last Filed: 07/15/21 17:47> [facility] Past Medical History Attestation statement: The following information was validated with the patient. <LORENZA Ruiz - Last Filed: 07/15/21 17:47> Medical History: Medical History Abdominal pain Acute UTI Arrhythmia Arthritis AV fistula Bipolar 1 disorder Bipolar disorder Bladder cancer Bowel obstruction Breast cancer Bronchopneumonia Cancer Chronic nausea Chronic respiratory failure COPD (chronic obstructive pulmonary disease) COVID-19 vaccine administered Dialysis patient Diarrhea Dysphagia ESRD (end stage renal disease) History of 2018 novel coronavirus disease (COVID-19) Hx of hypotension Hx of radiation therapy Hydronephrosis Hyperkalemia Hypothyroidism Invasive ductal carcinoma of breast Lab test negative for COVID-19 virus Lab test positive for detection of COVID-19 virus Leukocytosis MSSA bacteremia Paroxysmal A-fib Poor appetite Positive FIT (fecal immunochemical test) Pulmonary emboli Renal failure SBO (small bowel obstruction) Seizure SIRS (systemic inflammatory response syndrome) Thyroid disease Ureteral cancer Vomiting Wears dentures <LORENZA Ruiz - Last Filed: 07/15/21 17:47> Surgical History: Surgical History History of abdominal surgery History of appendectomy History of back surgery History of bladder surgery (~06/2020) History of cholecystectomy History of esophagogastroduodenoscopy (EGD) History of hand surgery History of lumpectomy of left breast History of lumpectomy of right breast History of tonsillectomy Hx of colonoscopy Hx of foot surgery <LORENZA Ruiz - Last Filed: 07/15/21 17:47> Family History Family History: Family History Father Dementia Mother Bipolar 1 disorder Brother Heart attack Other Mental health disorder <LORENZA Ruiz - Last Filed: 07/15/21 17:47> Social History Social History: Social History Household Members: Spouse Housing: House Are you a primary critical care educator to a significant other at home: No Do you presently have visiting nurse or other home services: Yes Alcohol intake: never Patient Tobacco Use Status: Former Tobacco user Quit Date: 4 years ago Tobacco use type: Cigarette Cigarette Packs Per Day: 1.5 Cigarettes Per Day: 30.0 Years Smoked: 50 e-Cigarette/Vaping Use: Never Used Second Hand Smoke Exposure: No Use of substances other than those prescribed or required for medical reasons: No Advance Directives: Yes Advance Directives on File: Yes Advance Directives Date on File: 01/23/21 service: No Current occupational status: disabled <LORENZA Ruiz - Last Filed: 07/15/21 17:47>
[2021-07-15 10:19] LABS: MANUAL DIFF FLAG NO
[2021-07-15 10:20] LABS: Basophils Percent Auto 0.2 % (0-2); Eosinophils Absolute Auto 0.1 X10*3/uL (0.0-0.4); Eosinophils Percent Auto 1.1 % (0-4); Hematocrit 34.1 % (37.0-47.0); Hemoglobin 11.1 g/dl (12.0-16.0); Imm Gran Abs Auto 0.04 X10*3/uL (0.00-0.03); Imm Gran Pct Auto 0.5 % (0.0-0.4); Lymphocytes Absolute Auto 0.6 X10*3/uL (1.2-4.9); Lymphocytes Percent Auto 7.3 % (20-40); Mean Corpuscular HGB Conc 32.6 g/dl (31.0-35.0); Mean Corpuscular Hemoglobin 32.3 pg (27.0-33.0); Mean Corpuscular Volume 99.1 fL (80.0-98.0); Mean Platelet Volume 9.7 fL (9.4-12.3); Monocytes Absolute Auto 1.1 X10*3/uL (0.1-1.2); Monocytes Percent Auto 12.5 % (2-11); Neutrophils Absolute Auto 6.6 x10*3/uL (2.0-8.3); Neutrophils Percent Auto 78.4 % (45-73); Platelet Count 239 X10*3/uL (160-400); Red Blood Count 3.44 X10*6/uL (4.20-5.50); Red Cell Distribution Width 13.2 % (11.0-16.0); White Blood Count 8.4 X10*3/uL (4.8-10.8)
[2021-07-15] MEDS: ondansetron HCL 4 MG/2 ML VIAL IVPUSH (10:31)
[2021-07-15] MEDS: 0.9 % Sodium Chloride 1,000 ML 999 ML IVCONT (10:31)
[2021-07-15] MEDS: fentaNYL citrate/PF 100 MCG/2 ML VIAL 25 MCG IVPUSH ×4 (10:31→18:01)
[2021-07-15] MEDS: Piperacillin Sodium/Tazobactam 2.25 GM in 0.9 % Sodium Chloride 50 ML IV (10:31)
[2021-07-15 10:33] LABS: Lactic Acid 1.5 mmol/L (0.5-2.0)
[2021-07-15 10:38] LABS: Alanine Aminotransferase 9 U/L (0-31); Albumin Level 3.3 g/dL (3.5-5.0); Alkaline Phosphatase 111 U/L (39-117); Anion Gap 22 (12-20); Aspartate Amino Transferase 9 U/L (5-31); Bilirubin Direct 0.2 mg/dL (0.0-0.5); Bilirubin Total 0.4 mg/dL (0.0-1.0); Blood Urea Nitrogen 47 mg/dL (9-16); Calcium 9.9 mg/dL (8.4-10.2); Carbon Dioxide 27 mmol/L (22-29); Chloride 99 mmol/L (96-108); Creatinine Clr Calc Pharmacy 6.2; Estimated Glomerular Filt Rate 6; Glucose Random 131 mg/dL (60-115); Lipase 28 U/L (8-78); Magnesium 1.9 mg/dL (1.6-2.6); Potassium 4.2 mmol/L (3.3-5.1); Sodium 144 mmol/L (135-145)
[2021-07-15 10:43] LABS: B Type Natriuretic Peptide 185 pg/mL (<100)
--- NOTE | 2021-07-15 10:43 | PHA.MEDREC ---
Pharmacy Consult ? Medication Reconciliation Pharmacy has completed the medication reconciliation. Nikki MurguiaD
[2021-07-15] MEDS: Metoclopramide HCl 10 MG/2 ML VIAL IVPUSH (11:45)
[2021-07-15] MEDS: 0.9 % Sodium Chloride 500 ML 999 ML IV (11:46)
[2021-07-15] MEDS: Lidocaine HCl 4 % Laryng-O-Jet 4 ML 1 APPL TOPICAL (16:53)
--- NOTE | 2021-07-15 16:54 | PC.NURSE ---
eloisa lewis at bedside to assist this rn in placing ng sump pump, placed in l nare w minimal resistance by eloisa lewis. hooked to low suction and draining thick green emesis. hospice executive director at bedside for eval.
--- NOTE | 2021-07-15 18:00 | P.CONCC_ITS ---
History of Present Illness Data of Consult Service Date: 07/15/21 Requesting physician: Ro Aguilar Primary Care Provider: Gabriel Acosta MD HPI . Called to the ED by LORENZA Aguilar to evaluate Ms. Barrett who presents with a bowel obstruction and ischemic bowel. Briefly, the patient is a 75 yo F with PMHx of ESRD on HD; active treatment for right breast cancer diagnosed in January; active treatment for bladder cancer; h/o ureteral cancer; COPD, cared for by Dr. Solano; PAfib, on Eliquis; h/o pulmon emboli; and h/o multiple episodes of bowel obstruction, for which she?s had seven previous laparotomies.? Echo from 04/2020 showed normal LV size and fxn, EF 65-70%; normal RV size and fxn; mild , with mean gradient 17 mm; no MR; mild TR; normal IVC with greater than 50% inspiratory collapse. BIBA this morning c/o nausea, projectile vomiting, and abdominal pain since 2am.? Denied fever, chills, dysuria/hematuria, CP/SOB. In the ED, she was nontoxic although chronically ill appearing, and in no distress.? She was fully alert and oriented.? Heart rate was 101, blood pressure 105/54, the respiratory rate was 16, and sat was 91% on 2 L oxygen by nasal cannula.? General physical exam was remarkable for abdominal tenderness in the right lower quadrant, with no guarding or rebound.? She had no pedal edema. Labs in the ED were notable for WBC 8.4, Hb 11 (baseline is 7.9), creatinine 6.6, bicarb 27, lactate 1.5, alb 3.3.? Abdominal CT showed SBO with pneumatosis with mesenteric gas and hepatic portal gas.? COVID PARTH is negative.I saw the patient at about 16:45.? Spoke with the patient and her at some length. She was surprisingly nontoxic appearing, with normal mental status, breathing easy with Sat 92% on 2L NC.? Heart rate about 100, sinus rhythm at this time.? Blood pressure 105/54.? Temperature was 98.0?.? No JVD, no edema.? Abdomen is markedly distended -- her said that it?s a little bigger than usual.? The abdominal wall shows a large broad midline scar, undoubtedly the result to multiple surgeries.? The abdominal wall feels very thin, and feels like 1 giant hernia.? The abdomen is soft and the patient has marked right abdominal tenderness, with marked guarding, and maybe even rebound. An NGT was place and drained 800 cc bilious fluid. IMPRESSION: 1. Multiple medical problems, as outlined above, plus others (see list a past medical history). 2. Acute recurrent SBO 3. Likely ischemic bowel 4. Borderline acute abdomen. 5. ESRF 6. ?Coagulopathy secondary to Eliquis. The patient needs urgent surgery, before her systemic condition deteriorates.? Although she is not critically ill at this time, she very likely will be after her surgery.? The surgery is likely to be lengthy, difficult, and very possibly complicated, given her previous surgeries, and given her anticoagulation.? [I discussed the situation pharmacy.? The best anticoagulation reversal would be Kcentra, 2000 units.]? IMO, the patient requires higher level surgical care than we have here at [facility]. Have discussed with Dr. Cedillo and Dr. Mercedes, and LORENZA Aguilar.? Dr. Eunice gallo has already called [facility] transfer.? They declined because they have no beds. Dr. Cedillo is currently in the operating room, so I will call hospitals east of to see if they can accommodate the patient. ADDENDUM: Transfer accepted to the ED at [facility]. Accepting physician is Cesar Alarcon. Accepting nurse is Renata Sims Nurse in the [facility] ED should call Renata MORENO at [phone] to give them further info. Transfer maybe by air or by ground, depending on the patient's condition. Time (including extended chart review): 120+ min. [facility] Past Medical History Medical History Abdominal pain Acute UTI Arrhythmia Arthritis AV fistula Bipolar 1 disorder Bipolar disorder Bladder cancer Bowel obstruction Breast cancer Bronchopneumonia Cancer Chronic nausea Chronic respiratory failure COPD (chronic obstructive pulmonary disease) COVID-19 vaccine administered Dialysis patient Diarrhea Dysphagia ESRD (end stage renal disease) History of 2018 novel coronavirus disease (COVID-19) Hx of hypotension Hx of radiation therapy Hydronephrosis Hyperkalemia Hypothyroidism Invasive ductal carcinoma of breast Lab test negative for COVID-19 virus Lab test positive for detection of COVID-19 virus Leukocytosis MSSA bacteremia Paroxysmal A-fib Poor appetite Positive FIT (fecal immunochemical test) Pulmonary emboli Renal failure SBO (small bowel obstruction) Seizure SIRS (systemic inflammatory response syndrome) Thyroid disease Ureteral cancer Vomiting Wears dentures Family History Family History Father Dementia Mother Bipolar 1 disorder Brother Heart attack Other Mental health disorder Surgical History Surgical History History of abdominal surgery History of appendectomy History of back surgery History of bladder surgery (~06/2020) History of cholecystectomy History of esophagogastroduodenoscopy (EGD) History of hand surgery History of lumpectomy of left breast History of lumpectomy of right breast History of tonsillectomy Hx of colonoscopy Hx of foot surgery Social History Social History Household Members: Spouse Housing: House Are you a primary career technical supervisor to a significant other at home: No Do you presently have visiting nurse or other home services: Yes Alcohol intake: never Patient Tobacco Use Status: Former Tobacco user Quit Date: 4 years ago Tobacco use type: Cigarette Cigarette Packs Per Day: 1.5 Cigarettes Per Day: 30.0 Years Smoked: 50 e-Cigarette/Vaping Use: Never Used Second Hand Smoke Exposure: No Use of substances other than those prescribed or required for medical reasons: No Advance Directives: Yes Advance Directives on File: Yes Advance Directives Date on File: 01/23/21 service: No Current occupational status: disabled Meds Allergies Allergy/AdvReac Type Severity Reaction Status Date / Time adhesive tape Allergy Intermediate Blister Verified 07/05/21 13:09 aspirin Allergy Intermediate RASH Verified 07/05/21 13:09 benztropine Allergy Intermediate RASH Verified 07/05/21 13:09 NSAIDS (Non-Steroidal Allergy Intermediate RASH Verified 07/05/21 13:09 Anti-Inflamma ziprasidone Allergy Intermediate UNKNOWN Verified 07/05/21 13:09 doxycycline AdvReac Vomiting Verified 07/05/21 13:09 oxycodone AdvReac Anaphylaxis Verified 07/05/21 13:09 Active Medications: Current Medications Pharmacy Consult (Consult Rx Perform Med Rec) 1 each MISCELLANE ONCE PRN PRN Reason: Consult order Home Medications Medication Instructions Recorded Confirmed Last Taken Type clonazepam 1 mg tablet 1.5 mg PO BEDTIME 05/21/20 07/15/21 07/14/21 History lamotrigine 150 mg tablet 300 mg PO BEDTIME 05/21/20 07/15/21 07/14/21 History acetaminophen 325 mg tablet 650 mg PO BID PRN 05/22/20 07/15/21 03/19/21 History sevelamer carbonate 800 mg tablet 800 mg PO TIDWM 05/22/20 07/15/21 07/14/21 History clozapine 100 mg tablet 250 mg PO BEDTIME 01/04/21 07/15/21 07/14/21 History fluticasone 500 mcg-salmeterol 50 1 inh INHALATION DAILY 07/15/21 07/15/2106/19 History mcg/dose blistr powdr for inhalation (Wixela Inhub) melatonin 3 mg tablet 6 mg PO BEDTIME PRN 07/15/21 07/15/21 Unknown History tamoxifen 20 mg tablet 20 mg PO DAILY@1400 07/15/21 07/15/21 07/14/21 History Physical Exam Vital Signs: Vital Signs: Last Vital Signs Temp 97.7 F 07/15/21 16:54 Pulse 101 H 07/15/21 15:34 Resp 16 07/15/21 15:34 BP 105/54 L 07/15/21 15:34 Pulse Ox 91 L 07/15/21 16:54 Oxygen Flow Rate 2 07/15/21 09:48 Body Mass Index 21.2 Results Labs CBC & Chem 7: 07/15/21 10:13 07/15/21 10:13 Labs: Short CBC 07/15/21 Range/Units 10:13 WBC 8.4 (4.8-10.8) X10*3/uL Hgb 11.1 L (12.0-16.0) g/dl Hct 34.1 L (37.0-47.0) % Plt Count 239 (160-400) X10*3/uL BMP 07/15/21 10:13 Sodium 144 Potassium 4.2 Chloride 99 Carbon Dioxide 27 BUN 47 H D Creatinine 6.62 H* Calcium 9.9 Liver Function 11/28/21 Range/Units 10:13 Total Bilirubin 0.4 (0.0-1.0) mg/dL Direct Bilirubin 0.2 (0.0-0.5) mg/dL AST 9 (5-31) U/L ALT 9 (0-31) U/L Alkaline Phosphatase 111 (39-117) U/L Albumin 3.3 L (3.5-5.0) g/dL
[2021-07-15 18:06] LABS: COVID-19 Test Negative (Negative)
[2021-07-15] MEDS: HYDROmorphone HCl 1 MG/ML SYRINGE IVPUSH (20:26)
--- NOTE | 2021-07-15 20:38 | PC.NURSE ---
Pt c/o pain, Anwer made aware, ordered dilaudid for pt. This RN medicated per orders. Pt RR even and unlabored on 2LNC baseline, VSS, pt awaiting transport to other facility. Pt aware and agreeable to plan, pt's at bedside, also aware and agreeable to plan.
--- NOTE | 2021-07-15 20:39 | PC.NURSE ---
Pt's NG tube continues to drain greenish/brown fluid.
--- NOTE | 2021-07-15 21:05 | PC.NURSE ---
This RN giving EMS report, notes pt's to be hypotensive. Dr Palma to bedside. 1L NS bolus hung per Dr Palma v/o
[2021-07-15] MEDS: 0.9 % Sodium Chloride 1,000 ML 999 ML IV (21:11)
--- NOTE | 2021-07-15 22:04 | PC.NURSE ---
Dr Palma to bedside with EMS, confirms he is comfortable with pt being transferred to OSH BLS. Pt aaox4, reports significant improvement in pain. Pt's VSS on baseline 2L NC. Pt transferred to EMS stretcher via sheet draw without incidence. Pt leaving dept at this time.
== END 2021-07-16 02:00 | disposition short-term general hospital (02) ==
PROVIDERS: Physician Assistant; Emergency Provider Emergency Medicine; PCP Internal Medicine
DX: K56.609 Unspecified intestinal obstruction, unspecified as to partial versus complete obstruction (principal); K63.89 Other specified diseases of intestine; R10.9 Unspecified abdominal pain; R11.2 Nausea with vomiting, unspecified; R00.0 Tachycardia, unspecified; Z20.822 Contact with and (suspected) exposure to COVID-19; Z85.54 Personal history of malignant neoplasm of ureter; Z85.3 Personal history of malignant neoplasm of breast; Z85.51 Personal history of malignant neoplasm of bladder; J96.10 Chronic respiratory failure, unspecified whether with hypoxia or hypercapnia; N18.6 End stage renal disease; Z99.2 Dependence on renal dialysis; Z79.899 Other long term (current) drug therapy
CPT/HCPCS: 36415; 43762; 71045; 74176; 80048; 80076; 83605; 83690; 83735; 83880; 85025; 87040; 87635; 93005; 96361; 96365; 96375; 96376; 99284; 99285; 99291; J1170; J2405; J2543; J2765; J3010

== ENCOUNTER 2021-08-27 00:58 | Outpatient (REF) | payer SELFPAY | END 2021-08-27 00:59 | disposition home or self-care (01) | LOC: HO.MMNH2L 00:58 | PROVIDERS: Visit Provider Family Medicine | DX: Z13.89 Encounter for screening for other disorder (principal) ==

== ENCOUNTER → 2021-09-03 12:34 | Outpatient (BNVA) | payer MEDICARE, BC, SELFPAY | PROVIDERS: PCP Internal Medicine; Referring Provider Internal Medicine; Visit Provider Internal Medicine Cardiovascular Disease | DX: I48.0 Paroxysmal atrial fibrillation (principal) | CPT/HCPCS: 93005 ==

== ENCOUNTER → 2021-09-06 14:01 | Outpatient (BNVA) | payer BC, SELFPAY | PROVIDERS: PCP Internal Medicine; Visit Provider Hospitalist | DX: J41.8 Mixed simple and mucopurulent chronic bronchitis (principal); J96.11 Chronic respiratory failure with hypoxia; J18.0 Bronchopneumonia, unspecified organism; R13.10 Dysphagia, unspecified | CPT/HCPCS: 99212 ==

== ENCOUNTER 2021-09-21 13:00 | Outpatient (RCR) | payer MEDICARE, BC, SELFPAY ==
[2021-03-01 14:47] VITALS: BP 97/54; PULSE 85; RESP 18; TEMP 37.2; O2SAT 94; BMI 21.6
--- NOTE | 2021-03-01 14:55 | PM.HEMONCCN ---
Subjective - Subjective Chief complaint: Consult for: Right breast cancer. Patient: new to practice Consult date: 03/01/21 Requesting Physician: Dr. Galindo Primary Care Provider: Gabriel Acosta MD Medical Summary: DIAGNOSIS: RIGHT BREAST CANCER. HPI - Consult Narrative Reason for consult: Consult for: Right breast cancer. Narrative: Prudence Nena is a pleasant 75 year old lady, with a previous history of left breast cancer. She had right lumpectomy on 01/23. She is recovering from that. She says her energy level is good. No fever nor chills. Her appetite is good. She has gained weight. She denies headache nor dizziness. No chest pain. She does have COPD so gets short of breath at times. Denies abdominal pain. She has nausea for which she takes medications. She has gas. She gets occasional diarrhea. No blood in the stools. Denies dysuria no hematuria. She produces little urine. She is on dialysis. She has occasional pain in her hips and shoulders. She gets shots for them. Four years ago she had a setback and could not walk. She got physical therapy. She is now making progress. Denies depression. She does get itching on her skin. She takes hydroxyzine. Pathology: Invasive ductal carcinoma, grade 2, 0.9 cm, positive superior margin. Ductal carcinoma in Situ, nuclear grade 2-3, with patchy necrosis, within microns of multiple margins. [place] node 1.: Metastatic carcinoma seen in 1 of 3 lymph nodes examined. Additional margin right superior excision: Invasive ductal carcinoma, grade 2, 0.5 cm, negative margin. Ductal carcinoma in Situ, grade 2-3, within microns of margin. Re-excision: Benign breast tissue, no carcinoma seen. Synoptic data: Tumor size: 1.4 cm. Tumor focality: Unifocal. DCIS: Present. Nuclear grade: 2-3. EIC: Positive. LCIS: Not identified. Type: Ductal with micro papillary features. Nuclear pleomorphism score: 2. Mitotic score: 2. Margins, invasive tumor: Negative after revision. Margin DCIS: Negative, within microns of new margin. Lymph nodes: Number examined: 5. [place] nodes: 4. Axillary nodes: 1. Number involved: 1. With micro metastases: 1. TNM: pT1c,N1mi(sn)(i+). 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 Menopause at 52. She was on HRT for a year or 2. Family history: Sister and brother have heart issues. Sister had pancreatitis. 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 She is . She has no children. She smoked a pack and half till 2016. Denies alcohol. Review of Systems - Constitutional Reports system reviewed and no additional complaints, except as documented, Reports weight gain, Denies lack of energy, Denies malaise, Denies weight loss - Eyes Reports system reviewed and no additional complaints, except as documented, Denies blurry vision - ENT Reports system reviewed and no additional complaints, except as documented - Cardiovascular Reports system reviewed and no additional complaints, except as documented, Reports shortness of breath, Denies chest pain, Denies lightheadedness - Respiratory Reports no additional respiratory complaints, Reports dyspnea on exertion, Denies cough - Gastrointestinal Reports system reviewed and no additional complaints, except as documented, Reports diarrhea, Reports nausea - Genitourinary Reports no additional female genitourinary complaints Comments: CKD. On dialysis. - Musculoskeletal Reports system reviewed and no additional complaints, except as documented - Integumentary/Breasts Skin/Breast: Reports no additional skin complaints - Neurologic Reports system reviewed and no additional complaints, except as documented - Psychiatric Reports system reviewed and no additional complaints, except as documented - Endocrine Reports no additional endocrine complaints - Hematologic/Lymphatic Reports system reviewed and no additional complaints, except as documented - Allergic/Immunologic Reports system reviewed and no additional complaints, except as documented Oncology Screenings - ECOG Performance Status ECOG Performance Status: 2 [facility] Medical History: Medical History (Last Reviewed 03/15/21 @ 16:33 by Mahendra Thomas MD) Abdominal pain Arrhythmia Arthritis AV fistula Bipolar 1 disorder Bowel obstruction Breast cancer Bronchopneumonia Cancer Chronic nausea COPD (chronic obstructive pulmonary disease) COVID-19 vaccine administered Dialysis patient Diarrhea Dysphagia History of 2019 novel coronavirus disease (COVID-19) Hx of hypotension Hx of radiation therapy Hypothyroidism Invasive ductal carcinoma of breast Lab test negative for COVID-19 virus Lab test positive for detection of COVID-19 virus MSSA bacteremia Paroxysmal A-fib Poor appetite Positive FIT (fecal immunochemical test) Pulmonary emboli Renal failure SBO (small bowel obstruction) Thyroid disease Vomiting Wears dentures Functional capacity: wheelchair bound Patient : No Family History: Family History (Last Reviewed 03/15/21 @ 16:33 by Mahendra Thomas MD) Father Dementia Mother Bipolar 1 disorder Brother Heart attack Other Mental health disorder Surgical History: Surgical History (Last Reviewed 03/15/21 @ 16:33 by Mahendra Thomas MD) History of abdominal surgery History of appendectomy History of back surgery History of bladder surgery Onset Date: ~06/2020 History of cholecystectomy History of esophagogastroduodenoscopy (EGD) History of hand surgery History of lumpectomy of left breast History of lumpectomy of right breast History of tonsillectomy Hx of colonoscopy Hx of foot surgery Social History: Social History (Last Reviewed 03/15/21 @ 16:33 by Mahendra Thomas MD) Living Situation History: Housing: House Are you a primary child caregiver private home to a significant other at home: No Do you presently have visiting nurse or other home services: Yes Alcohol History: Alcohol intake: never Alcohol History Details: Alcohol intake frequency: does not drink Tobacco History: Patient Tobacco Use Status: Former Tobacco user Tobacco use type: Cigarette Years Smoked: 50 Smoke Quit Date: 2015 Advance Directives: Advance Directives Date on File: 01/23/21 Occupation Assessmet: service: No Current occupational status: disabled Home Medications and Allergies Home Medications Medication Instructions Recorded Confirmed Type clonazepam 1 mg tablet 1.5 mg PO BEDTIME 05/21/20 03/15/21 History lamotrigine 150 mg tablet 300 mg PO BEDTIME 05/21/20 03/15/21 History acetaminophen 325 mg tablet 650 mg PO BID PRN 05/22/20 03/15/21 History fluticasone 500 mcg-salmeterol 50 1 inh INHALATION BID 05/22/20 03/15/21 History mcg/dose blistr powdr for inhalation (Wixela Inhub) sevelamer carbonate 800 mg tablet 800 mg PO TID 05/22/20 03/15/21 History melatonin 10 mg capsule 20 mg PO BEDTIME PRN cap 09/06/20 03/15/21 History clozapine 100 mg tablet 150 mg PO BEDTIME 01/04/21 03/15/21 History Allergies Allergy/AdvReac Type Severity Reaction Status Date / Time adhesive tape Allergy Intermediate Blister Verified 03/15/21 16:05 aspirin Allergy Intermediate RASH Verified 03/15/21 16:05 benztropine Allergy Intermediate RASH Verified 03/15/21 16:05 NSAIDS (Non-Steroidal Allergy Intermediate RASH Verified 03/15/21 16:05 Anti-Inflamma ziprasidone Allergy Unknown UNKNOWN Verified 03/15/21 16:05 doxycycline AdvReac Vomiting Verified 03/15/21 16:05 Physical Exam Vital signs: Vital Signs Temp 98.9 F 03/01/21 14:47 Pulse 85 03/01/21 14:47 Resp 18 03/01/21 14:47 BP 97/54 L 03/01/21 14:47 Pulse Ox 94 03/01/21 14:47 Intake & Output 02/28/21 03/01/21 03/01/21 18:59 06:59 18:59 Other: Weight 55.3 kg [place] Weight in Grams 03800 Weight 55.3 kg - Constitutional Present: mild distress - Routine HEENT Exam Head: Present: normal inspection, normocephalic ENT: Present: mucous membranes moist - Routine Neck Exam Present: supple - Routine Chest/Breast/Axilla Exam Breast: Present: swelling Comments: Status post right lumpectomy with sentinel node biopsy. History of left lumpectomy in the past. - Routine Respiratory Exam Present: decreased breath sounds, CTAB - Routine Cardiovascular Exam Cardiovascular: Present: RRR, S1, S2 - Routine Abdominal Exam Present: nontender Hem/Onc Consult Result - Labs CBC & Chem 7: 03/01/21 15:42 03/01/21 15:42 Assessment and Plan (1) Breast cancer, right breast Status: Acute This is a pleasant 75-year-old lady with a previous history of breast cancer diagnosed in 2006. She had lumpectomy followed by radiation therapy. She now has right-sided breast cancer. She underwent lumpectomy and sentinel node biopsy on 01/23. Pathology revealed: Tumor size: 1.4 cm. Tumor focality: Unifocal. DCIS: Present. Nuclear grade: 2-3. EIC: Positive. LCIS: Not identified. Type: Ductal with micro papillary features. Nuclear pleomorphism score: 2. Mitotic score: 2. Margins, invasive tumor: Negative after revision. Margin DCIS: Negative, within microns of new margin. Lymph nodes: Number examined: 5. [place] nodes: 4. Axillary nodes: 1. Number involved: 1. With micro metastases: 1. TNM: pT1c,N1mi(sn)(i+). She does have a close DCIS margin, with on positive node with micrometastases. She is not too keen on having more surgery. She is willing to undergo radiation therapy. Based upon her tumor size and axillary node status she acedemically would be a candidate for chemotherapy. However with her comorbidities, being dialysis dependent, I would be concerned about serious treatment induced toxicity. She would be at a much higher risk of neutropenic sepsis/pneumonia. She is not keen on getting chemotherapy. She is rather fearful of the potential side effects. Her tumor is receptor positive. She would benefit from antiestrogen therapy. PLAN: I will check an Oncotype DX. I will proceed with a PET scan for further staging, workup. She has an appointment with Dr. Calvo, from radiation therapy. Will discuss the case with him after he sees her. Will get a bone mineral density. Will decide about the choice of the antiestrogen based upon the results. She will return in a couple of weeks for a follow-up visit. Thank you, CC: Dr. Palmer. Dr. Thomas. Dr. Brock. Addendum: PET scan from 03/13 revealed: There are 2 areas of abnormal activity in the left para-aortic lymph node and left upper lobe nodule. No additional areas of abnormal metabolic activity seen in the chest, abdomen, pelvis or the neck to suspect any distant metastatic disease. Given the suspicion for more advanced disease, will proceed with antiestrogen therapy. Will recheck imaging in 3 months time.
[2021-03-01 15:46] LABS: MANUAL DIFF FLAG NO
[2021-03-01 15:49] LABS: Basophils Absolute Auto 0.1 X10*3/uL (0.0-0.2); Eosinophils Absolute Auto 0.6 X10*3/uL (0.0-0.4); Eosinophils Percent Auto 8.1 % (0-4); Hematocrit 38.2 % (37-47); Imm Gran Abs Auto 0.03 X10*3/uL (0.00-0.03); Imm Gran Pct Auto 0.4 % (0.0-0.4); Lymphocytes Absolute Auto 1.3 X10*3/uL (1.2-4.9); Lymphocytes Percent Auto 18.4 % (20-40); Mean Corpuscular HGB Conc 31.4 g/dl (31.0-35.0); Mean Corpuscular Hemoglobin 31.8 pg (27.0-33.0); Mean Corpuscular Volume 101.3 fL (80-98); Monocytes Absolute Auto 0.9 X10*3/uL (0.1-1.2); Monocytes Percent Auto 12.4 % (2-11); Neutrophils Absolute Auto 4.2 X10*3/uL (2.0-8.3); Neutrophils Percent Auto 59.7 % (45-73); Platelet Count 240 X10*3/uL (160-400); Red Blood Count 3.77 X10*6/uL (4.20-5.50); Red Cell Distribution Width 14.8 % (11.0-16.0); White Blood Count 7.1 X10*3/uL (4.8-10.8)
--- NOTE | 2021-03-01 15:56 | MHC.HEMONC ---
Oncology consult with Dr. Matos, patient accompanied by . Medical history/medications reviewed. Patient has appt next week at [facility]. Order for PET scan placed. Follow up in 2 weeks to discuss options.
[2021-03-01 16:49] LABS: Alanine Aminotransferase 76 U/L (0-31); Albumin Level 3.9 g/dL (3.5-5.0); Alkaline Phosphatase 172 U/L (39-117); Anion Gap 20 (12-20); Aspartate Amino Transferase 71 U/L (5-31); Bilirubin Total 0.4 mg/dL (0.0-1.0); Blood Urea Nitrogen 31 mg/dL (9-16); Calcium 9.1 mg/dL (8.4-10.2); Carbon Dioxide 28 mmol/L (22-29); Chloride 102 mmol/L (96-108); Creatinine Clr Calc Pharmacy 9.2; Estimated Glomerular Filt Rate 10; Glucose Random 77 mg/dL (60-115); Potassium 4.8 mmol/L (3.3-5.1); Sodium 145 mmol/L (135-145); Total Protein 6.8 g/dL (6.5-8.0)
[2021-03-03 12:06] LABS: CA 27.29 20 U/mL (<38)
--- NOTE | 2021-03-05 14:30 | MHC.HEMONCMA ---
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 PET scan form filled out and faxed with copy of pathology and recent imaging to [facility] for booking.
[2021-03-20 16:05] VITALS: BP 141/75; PULSE 87; RESP 18; TEMP 36.6; O2SAT 96; BMI 21.0
[2021-03-20 16:25] LABS: MANUAL DIFF FLAG NO
[2021-03-20 16:32] LABS: Basophils Absolute Auto 0.1 X10*3/uL (0.0-0.2); Basophils Percent Auto 0.6 % (0-2); Eosinophils Absolute Auto 0.6 X10*3/uL (0.0-0.4); Eosinophils Percent Auto 5.8 % (0-4); Hematocrit 36.6 % (37-47); Hemoglobin 11.7 g/dl (12.0-16.0); Imm Gran Abs Auto 0.06 X10*3/uL (0.00-0.03); Imm Gran Pct Auto 0.6 % (0.0-0.4); Lymphocytes Absolute Auto 1.1 X10*3/uL (1.2-4.9); Lymphocytes Percent Auto 11.8 % (20-40); Mean Corpuscular Hemoglobin 31.8 pg (27.0-33.0); Mean Corpuscular Volume 99.5 fL (80-98); Monocytes Percent Auto 10.9 % (2-11); Neutrophils Absolute Auto 6.7 X10*3/uL (2.0-8.3); Neutrophils Percent Auto 70.3 % (45-73); Platelet Count 273 X10*3/uL (160-400); Red Blood Count 3.68 X10*6/uL (4.20-5.50); Red Cell Distribution Width 14.2 % (11.0-16.0); White Blood Count 9.5 X10*3/uL (4.8-10.8)
--- NOTE | 2021-03-20 16:46 | MHC.HEMONCMA ---
Pt was in for onc follow up and states she is doing well. clinical summary was updated and labs were drawn. pt will be seen in 1 month for follow up apt.
[2021-03-20 17:10] LABS: Alanine Aminotransferase 61 U/L (0-31); Albumin Level 4.1 g/dL (3.5-5.0); Alkaline Phosphatase 203 U/L (39-117); Anion Gap 19 (12-20); Aspartate Amino Transferase 35 U/L (5-31); Bilirubin Total 0.5 mg/dL (0.0-1.0); Blood Urea Nitrogen 32 mg/dL (9-16); Calcium 9.2 mg/dL (8.4-10.2); Carbon Dioxide 23 mmol/L (22-29); Chloride 101 mmol/L (96-108); Creatinine Clr Calc Pharmacy 8.5; Estimated Glomerular Filt Rate 9; Glucose Random 81 mg/dL (60-115); Potassium 5.3 mmol/L (3.3-5.1); Sodium 138 mmol/L (135-145)
--- NOTE | 2021-03-20 18:11 | PM.HEMONCPN ---
Medical Summary - Medical Summary Date of Service: 03/20/21 Chief complaint: Follow-up for: Breast cancer. Medical Summary: DIAGNOSIS: RIGHT BREAST CANCER. Oncotype DX recurrence score: Intermediate at 19. Distant recurrence risk at 9 years with AI or tamoxifen: 16%. Interval History Interval history: Evette Barrett is a pleasant 75 year old lady, here for a follow-up visit. She tells me she has been doing pretty well. Nothing is really new. Her breast appears to be healing. It is not swollen anymore. She says her energy level is good. No fever nor chills. Her appetite is good. She has gained weight. She denies headache nor dizziness. No chest pain. She does have COPD so gets short of breath at times. Denies abdominal pain. She has nausea for which she takes medications. She has gas. She gets occasional diarrhea. No blood in the stools. Denies dysuria no hematuria. She produces little urine. She is on dialysis. She has occasional pain in her hips and shoulders. She gets shots for them. Four years ago she had a setback and could not walk. She got physical therapy. She is now making progress. Denies depression. She does get itching on her skin. She takes hydroxyzine. Previous history: She has a previous history of left breast cancer. She had right lumpectomy on 01/23. She is recovering from that. Pathology: Invasive ductal carcinoma, grade 2, 0.9 cm, positive superior margin. Ductal carcinoma in Situ, nuclear grade 2-3, with patchy necrosis, within microns of multiple margins. [place] node 1.: Metastatic carcinoma seen in 1 of 3 lymph nodes examined. Additional margin right superior excision: Invasive ductal carcinoma, grade 2, 0.5 cm, negative margin. Ductal carcinoma in Situ, grade 2-3, within microns of margin. Re-excision: Benign breast tissue, no carcinoma seen. Synoptic data: Tumor size: 1.4 cm. Tumor focality: Unifocal. DCIS: Present. Nuclear grade: 2-3. EIC: Positive. LCIS: Not identified. Type: Ductal with micro papillary features. Nuclear pleomorphism score: 2. Mitotic score: 2. Margins, invasive tumor: Negative after revision. Margin DCIS: Negative, within microns of new margin. Lymph nodes: Number examined: 5. [place] nodes: 4. Axillary nodes: 1. Number involved: 1. With micro metastases: 1. TNM: pT1c,N1mi(sn)(i+). Surgical Services Director History: Menarche at 16 years. Menopause at 52. She was on HRT for a year or 2. Family history: Sister and brother have heart issues. Sister had pancreatitis. 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 She is . She has no children. She smoked a pack and half till 2016. Denies alcohol. Review of Systems - Constitutional Reports no additional constitutional complaints, Denies lack of energy, Denies malaise, Denies weight loss - Eyes Reports no additional eye complaints - ENT Reports no additional ear, nose, mouth, and throat complaints - Cardiovascular Reports no additional cardiovascular complaints - Respiratory Reports no additional respiratory complaints - Gastrointestinal Reports no additional gastrointestinal complaints - Genitourinary Reports no additional female genitourinary complaints - Musculoskeletal Reports no additional musculoskeletal complaints - Integumentary/Breasts Skin/Breast: Reports no additional skin complaints - Neurologic Reports no additional neurologic complaints - Psychiatric Reports no additional psychiatric complaints - Endocrine Reports no additional endocrine complaints - Hematologic/Lymphatic Reports no additional hematologic/lymphatic complaints - Allergic/Immunologic Reports no additional allergic/immunologic complaints [facility] Medical History: Medical History (Last Reviewed 03/20/21 @ 16:17 by Lisa Barahona) Abdominal pain Arrhythmia Arthritis AV fistula Bipolar 1 disorder Bowel obstruction Breast cancer Bronchopneumonia Cancer Chronic nausea COPD (chronic obstructive pulmonary disease) COVID-19 vaccine administered Dialysis patient Diarrhea Dysphagia History of 2019 novel coronavirus disease (COVID-19) Hx of hypotension Hx of radiation therapy Hypothyroidism Invasive ductal carcinoma of breast Lab test negative for COVID-19 virus Lab test positive for detection of COVID-19 virus MSSA bacteremia Paroxysmal A-fib Poor appetite Positive FIT (fecal immunochemical test) Pulmonary emboli Renal failure SBO (small bowel obstruction) Thyroid disease Vomiting Wears dentures Functional capacity: wheelchair bound Family History: Family History (Last Reviewed 03/20/21 @ 16:17 by Lisa Barahona) Father Dementia Mother Bipolar 1 disorder Brother Heart attack Other Mental health disorder Surgical History: Surgical History (Last Reviewed 03/20/21 @ 16:17 by Lisa Barahona) History of abdominal surgery History of appendectomy History of back surgery History of bladder surgery Onset Date: ~06/2020 History of cholecystectomy History of esophagogastroduodenoscopy (EGD) History of hand surgery History of lumpectomy of left breast History of lumpectomy of right breast History of tonsillectomy Hx of colonoscopy Hx of foot surgery Social History: Social History (Last Reviewed 03/20/21 @ 16:17 by Lisa Barahona) Living Situation History: Housing: House Are you a primary home care rn to a significant other at home: No Do you presently have visiting nurse or other home services: Yes Alcohol History: Alcohol intake: never Alcohol History Details: Alcohol intake frequency: does not drink Tobacco History: Patient Tobacco Use Status: Former Tobacco user Tobacco use type: Cigarette Years Smoked: 50 Smoke Quit Date: 2015 Advance Directives: Advance Directives Date on File: 01/23/21 Nutrition Assessment: Patient : No Occupation Assessmet: service: No Current occupational status: disabled Oncology Screenings - ECOG Performance Status ECOG Performance Status: 2 Home Medications and Allergies Home Medications Medication Instructions Recorded Confirmed Type clonazepam 1 mg tablet 1.5 mg PO BEDTIME 05/21/20 03/20/21 History lamotrigine 150 mg tablet 300 mg PO BEDTIME 05/21/20 03/20/21 History acetaminophen 325 mg tablet 650 mg PO BID PRN 05/22/20 03/20/21 History fluticasone 500 mcg-salmeterol 50 1 inh INHALATION BID 05/22/20 03/20/21 History mcg/dose blistr powdr for inhalation (Wixela Inhub) sevelamer carbonate 800 mg tablet 800 mg PO TID 05/22/20 03/20/21 History melatonin 10 mg capsule 20 mg PO BEDTIME PRN cap 09/06/20 03/20/21 History clozapine 100 mg tablet 150 mg PO BEDTIME 01/04/21 03/20/21 History Allergies Allergy/AdvReac Type Severity Reaction Status Date / Time adhesive tape Allergy Intermediate Blister Verified 03/15/21 16:05 aspirin Allergy Intermediate RASH Verified 03/15/21 16:05 benztropine Allergy Intermediate RASH Verified 03/15/21 16:05 NSAIDS (Non-Steroidal Allergy Intermediate RASH Verified 03/15/21 16:05 Anti-Inflamma ziprasidone Allergy Unknown UNKNOWN Verified 03/15/21 16:05 doxycycline AdvReac Vomiting Verified 03/15/21 16:05 Exam Vital signs: Vital Signs Temp 97.8 F 03/20/21 16:05 Pulse 87 03/20/21 16:05 Resp 18 03/20/21 16:05 BP 141/75 H 03/20/21 16:05 Pulse Ox 96 03/20/21 16:05 Intake & Output 03/19/21 03/20/21 03/20/21 18:59 06:59 18:59 Other: Weight 53.9 kg Cost Weight in Grams 80144 Weight 53.9 kg Body Mass Index 21.0 - Constitutional Present: mild distress - Routine HEENT Exam Head: Present: normal inspection, normocephalic Eye: Present: normal appearance ENT: Present: mucous membranes moist - Routine Neck Exam Present: full ROM - Routine Respiratory Exam Present: decreased breath sounds, CTAB - Routine Cardiovascular Exam Cardiovascular: Present: RRR, S1, S2 - Routine Abdominal Exam Present: nontender - Routine Rectal Exam Patient deferred: digital exam - Routine Extremities Exam Present: nontender - Routine Back/Spine/Pelvis Exam Back/Spine: Present: full ROM - Routine Skin Exam Present: intact - Routine Neurological Exam Present: alert, oriented X3 - Routine Psychiatric Exam Present: normal affect Data - Labs CBC & Chem 7: 03/20/21 16:07 03/20/21 16:07 Labs: 03/01/21 15:42 CA 27.29 Routine Complete Blood Count Auto Diff Routine Comprehensive Met. Panel Routine 03/20/21 16:07 CMP [Comprehensive Met. Panel] Routine Complete Blood Count Auto Diff Routine Laboratory Last Values WBC 9.5 X10*3/uL (4.8-10.8) 03/20/21 16:07 RBC 3.68 X10*6/uL (4.20-5.50) L 03/20/21 16:07 Hgb 11.7 g/dl (12.0-16.0) L 03/20/21 16:07 Hct 36.6 % (37-47) L 03/20/21 16:07 MCV 99.5 fL (80-98) H 03/20/21 16:07 MCH 31.8 pg (27.0-33.0) 03/20/21 16:07 MCHC 32.0 g/dl (31.0-35.0) 03/20/21 16:07 RDW 14.2 % (11.0-16.0) 03/20/21 16:07 Plt Count 273 X10*3/uL (160-400) 03/20/21 16:07 MPV 9.0 fL (9.4-12.3) L 03/20/21 16:07 Immature Gran % (Auto) 0.6 % (0.0-0.4) H 03/20/21 16:07 Neut % (Auto) 70.3 % (45-73) 03/20/21 16:07 Lymph % (Auto) 11.8 % (20-40) L 03/20/21 16:07 [place] % (Auto) 10.9 % (2-11) 03/20/21 16:07 Eos % (Auto) 5.8 % (0-4) H 03/20/21 16:07 Baso % (Auto) 0.6 % (0-2) 03/20/21 16:07 Lymph # (Auto) 1.1 X10*3/uL (1.2-4.9) L 03/20/21 16:07 [place] # (Auto) 1.0 X10*3/uL (0.1-1.2) 03/20/21 16:07 Eos # (Auto) 0.6 X10*3/uL (0.0-0.4) H 03/20/21 16:07 Baso # (Auto) 0.1 X10*3/uL (0.0-0.2) 03/20/21 16:07 Abs Immat Gran (auto) 0.06 X10*3/uL (0.00-0.03) H 03/20/21 16:07 Absolute Neuts (auto) 6.7 X10*3/uL (2.0-8.3) 03/20/21 16:07 Absolute Nucleated RBC 0.000 X10*3/uL (0.0-0.012) 03/20/21 16:07 Nucleated RBC % (auto) 0.0 /100WBC (0.0-0.2) 03/20/21 16:07 Sodium 138 mmol/L (135-145) 03/20/21 16:07 Potassium 5.3 mmol/L (3.3-5.1) H 03/20/21 16:07 Chloride 101 mmol/L (96-108) 03/20/21 16:07 Carbon Dioxide 23 mmol/L (22-29) 03/20/21 16:07 Anion Gap 19 (12-20) 03/20/21 16:07 BUN 32 mg/dL (9-16) H 03/20/21 16:07 Creatinine 4.87 mg/dL (0.5-1.4) H* 03/20/21 16:07 Estim Creat Clear Calc 8.5 03/20/21 16:07 Estimated GFR 9 03/20/21 16:07 Random Glucose 81 mg/dL (60-115) 03/20/21 16:07 Calcium 9.2 mg/dL (8.4-10.2) 03/20/21 16:07 Total Bilirubin 0.5 mg/dL (0.0-1.0) 03/20/21 16:07 AST 35 U/L (5-31) H D 03/20/21 16:07 ALT 61 U/L (0-31) H 03/20/21 16:07 Alkaline Phosphatase 203 U/L (39-117) H 03/20/21 16:07 Total Protein 7.0 g/dL (6.5-8.0) 03/20/21 16:07 Albumin 4.1 g/dL (3.5-5.0) 03/20/21 16:07 CA 27-29 20 U/mL (<38) 03/01/21 15:42 Progress Note: A/P (1) Breast cancer, right breast Status: Acute Assessment and plan: This is a pleasant 75-year-old lady with a previous history of breast cancer diagnosed in 2006. She had lumpectomy followed by radiation therapy. She now has right-sided breast cancer. She underwent lumpectomy and sentinel node biopsy on 01/23. Pathology revealed: Tumor size: 1.4 cm. Tumor focality: Unifocal. DCIS: Present. Nuclear grade: 2-3. EIC: Positive. LCIS: Not identified. Type: Ductal with micro papillary features. Nuclear pleomorphism score: 2. Mitotic score: 2. Margins, invasive tumor: Negative after revision. Margin DCIS: Negative, within microns of new margin. Lymph nodes: Number examined: 5. [place] nodes: 4. Axillary nodes: 1. Number involved: 1. With micro metastases: 1. TNM: pT1c,N1mi(sn)(i+). She does have a close DCIS margin, with on positive node with micrometastases. She is not too keen on having more surgery. She is willing to undergo radiation therapy. Based upon her tumor size and axillary node status she acedemically would be a candidate for chemotherapy. However with her comorbidities, being dialysis dependent, I would be concerned about serious treatment induced toxicity. She would be at a much higher risk of neutropenic sepsis/pneumonia. She is not keen on getting chemotherapy. She is rather fearful of the potential side effects. Her tumor is receptor positive. She would benefit from antiestrogen therapy. I checked an Oncotype DX. The recurrence score is 19 so intermediate. Just confirms that she can avoid chemotherapy. I proceeded with a PET scan for further staging, workup. PET scan from 03/13 revealed: There are 2 areas of abnormal activity in the left para-aortic lymph node and left upper lobe nodule. No additional areas of abnormal metabolic activity seen in the chest, abdomen, pelvis or the neck to suspect any distant metastatic disease. Her bone density revealed: Osteoporosis. PLAN: Will proceed with antiestrogen therapy. She would be a candidate for tamoxifen, initially, in view of that. She was given information to review. Details of the regimen including potential side effects of hot flashes headache dizziness nausea vomiting diarrhea, risk of endometrial toxicity thromboembolic phenomena ocular toxicity were all addressed with her. She understands and is willing to proceed. Will arrange for bisphosphonate in a few months. She has seen Dr. Calvo, from radiation therapy. Radiation planning is being done. She has an appointment on 03/27 to go back She will return in a month for a follow-up visit. Thank you, CC: - Time Spent With Patient Time Spent with Patient (in minutes): 35
[2021-04-17 15:16] VITALS: BP 117/62; PULSE 90; RESP 12; TEMP 36.8; O2SAT 93; BMI 21.6
--- NOTE | 2021-04-17 15:16 | PM.HEMONCPN ---
Medical Summary - Medical Summary Date of Service: 04/17/21 Chief complaint: Follow-up for: Right breast cancer. Medical Summary: DIAGNOSIS: RIGHT BREAST CANCER. Oncotype DX recurrence score: Intermediate at 19. Distant recurrence risk at 9 years with AI or tamoxifen: 16%. Interval History Interval history: Evette Barrett is a pleasant 75 year old lady, here for a follow-up visit. She tells me lately she has not been doing too well. She was in house between April 06 and . Discharge summary: She presented with right-sided pain, nausea. Patient started having right-sided abdominal pain in the last 24 hours, she endorses some nausea.? When she got to the hospital, she also endorses that she started having some diarrhea as well.? I suspect the patient is not the best historian.? Otherwise, she denies chest pain, shortness of breath, fever chills, vomiting. Of note, the patient was recently discharged from this hospital on 03/29/2021 after being treated for renal hematoma. In the ED, vitals were unremarkable.? Labs were pertinent for the following:? WBC 21.9, hemoglobin 9.0, creatinine was elevated at 4.84 (in the setting of end-stage renal disease), urine was positive for UTI.? CT of the abdomen/pelvis without contrast did show some perinephric stranding again, somewhat decreased from prior (please see official report for full details). In the ED, the patient was treated with ceftriaxone.? The patient is being admitted for UTI, leukocytosis. This patient with bladder CA and hydronephrosis s/p ureteral stents was admitted to the medical/surgical floor for suspected UTI and flank pain from R renal subcapsular hematoma. She was treated with IV ceftriaxone. Blood cultures were negative. Urine culture was not collected, though she still makes a little urine. CT showed the hematoma was similar in size to previous CT, and the perinephric stranding had actually decreased. Leukocytosis resolved. She was continuned on HD as per her usual schedule (MWF). She did require medical treatment for hyperkalemia with Lokelmia, albuterol, insulin and calcium gluconate, though she did not have EKG changes. HD was performed with low-K bath. She was discharged home to resume VNA services and will continue HD MWF. She will receive erythropoeitin at HD. She will take 5 more days of antibiotic treatment with cefuroxime. She should follow up with her urologist in 1-2 weeks. She completed her antibiotic therapy yesterday. Her breast appears to be healing. It is not swollen anymore. She has been receiving radiation. Today was the 5th treatment. She has 10 more to go. She feels rather fatigued. No fever nor chills. Her appetite is good. She has gained weight. She denies headache nor dizziness. No chest pain. She does have COPD so gets short of breath at times. Denies abdominal pain. She has nausea for which she takes medications. She has gas. She gets occasional diarrhea. No blood in the stools. Denies dysuria no hematuria. She produces little urine. She is on dialysis. She has occasional pain in her hips and shoulders. She gets shots for them. Four years ago she had a setback and could not walk. She got physical therapy. She is now making progress. Denies depression. She does get itching on her skin. She takes hydroxyzine. Previous history: She has a previous history of left breast cancer. She had right lumpectomy on 01/23. She is recovering from that. Pathology: Invasive ductal carcinoma, grade 2, 0.9 cm, positive superior margin. Ductal carcinoma in Situ, nuclear grade 2-3, with patchy necrosis, within microns of multiple margins. [place] node 1.: Metastatic carcinoma seen in 1 of 3 lymph nodes examined. Additional margin right superior excision: Invasive ductal carcinoma, grade 2, 0.5 cm, negative margin. Ductal carcinoma in Situ, grade 2-3, within microns of margin. Re-excision: Benign breast tissue, no carcinoma seen. Synoptic data: Tumor size: 1.4 cm. Tumor focality: Unifocal. DCIS: Present. Nuclear grade: 2-3. EIC: Positive. LCIS: Not identified. Type: Ductal with micro papillary features. Nuclear pleomorphism score: 2. Mitotic score: 2. Margins, invasive tumor: Negative after revision. Margin DCIS: Negative, within microns of new margin. Lymph nodes: Number examined: 5. [place] nodes: 4. Axillary nodes: 1. Number involved: 1. With micro metastases: 1. TNM: pT1c,N1mi(sn)(i+). 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 Menopause at 52. She was on HRT for a year or 2. Family history: Sister and brother have heart issues. Sister had pancreatitis. 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 She is . She has no children. She smoked a pack and half till 2016. Denies alcohol. Review of Systems - Constitutional Reports no additional constitutional complaints, Reports malaise - Eyes Reports no additional eye complaints - ENT Reports no additional ear, nose, mouth, and throat complaints - Cardiovascular Reports no additional cardiovascular complaints - Respiratory Reports no additional respiratory complaints - Gastrointestinal Reports no additional gastrointestinal complaints - Genitourinary Reports no additional female genitourinary complaints - Musculoskeletal Reports no additional musculoskeletal complaints - Integumentary/Breasts Skin/Breast: Reports no additional skin complaints - Neurologic Reports no additional neurologic complaints - Psychiatric Reports no additional psychiatric complaints - Endocrine Reports no additional endocrine complaints - Hematologic/Lymphatic Reports no additional hematologic/lymphatic complaints - Allergic/Immunologic Reports no additional allergic/immunologic complaints [facility] Medical History: Medical History (Last Reviewed 04/17/21 @ 15:23 by Lisa Barahona) Abdominal pain Arrhythmia Arthritis AV fistula Bipolar 1 disorder Bladder cancer Bowel obstruction Breast cancer Bronchopneumonia Cancer Chronic nausea COPD (chronic obstructive pulmonary disease) COVID-19 vaccine administered Dialysis patient Diarrhea Dysphagia ESRD (end stage renal disease) History of 2019 novel coronavirus disease (COVID-19) Hx of hypotension Hx of radiation therapy Hypothyroidism Invasive ductal carcinoma of breast Lab test negative for COVID-19 virus Lab test positive for detection of COVID-19 virus MSSA bacteremia Paroxysmal A-fib Poor appetite Positive FIT (fecal immunochemical test) Pulmonary emboli Renal failure SBO (small bowel obstruction) Thyroid disease Vomiting Wears dentures Functional capacity: wheelchair bound Patient : No Family History: Family History (Last Reviewed 04/17/21 @ 15:23 by Lisa Barahona) Father Dementia Mother Bipolar 1 disorder Brother Heart attack Other Mental health disorder Surgical History: Surgical History (Last Reviewed 04/17/21 @ 15:23 by Lisa Barahona) History of abdominal surgery History of appendectomy History of back surgery History of bladder surgery Onset Date: ~06/2020 History of cholecystectomy History of esophagogastroduodenoscopy (EGD) History of hand surgery History of lumpectomy of left breast History of lumpectomy of right breast History of tonsillectomy Hx of colonoscopy Hx of foot surgery Social History: Social History (Last Reviewed 04/17/21 @ 15:23 by Lisa Barahona) Living Situation History: Household Members: Spouse Housing: House Are you a primary anesthesiologist and critical care to a significant other at home: No Do you presently have visiting nurse or other home services: Yes Alcohol History: Alcohol intake: never Alcohol History Details: Alcohol intake frequency: does not drink Tobacco History: Patient Tobacco Use Status: Former Tobacco user Tobacco use type: Cigarette Cigarette Packs Per Day: 1.5 Years Smoked: 50 Smoke Quit Date: 4 years ago e-Cigarette/Vaping Use: Never Used Second Hand Smoke Exposure: No Advance Directives: Advance Directives Date on File: 01/23/21 Nutrition Assessment: Patient : No Occupation Assessmet: service: No Current occupational status: disabled Oncology Screenings - ECOG Performance Status ECOG Performance Status: 2 Home Medications and Allergies Home Medications Medication Instructions Recorded Confirmed Type clonazepam 1 mg tablet 1.5 mg PO BEDTIME 05/21/20 04/17/21 History lamotrigine 150 mg tablet 300 mg PO BEDTIME 05/21/20 04/17/21 History acetaminophen 325 mg tablet 650 mg PO BID PRN 05/22/20 04/17/21 History fluticasone 500 mcg-salmeterol 50 1 inh INHALATION BID 05/22/20 04/17/21 History mcg/dose blistr powdr for inhalation (Wixela Inhub) sevelamer carbonate 800 mg tablet 1,600 mg PO TIDWM 05/22/20 04/17/21 History melatonin 10 mg capsule 20 mg PO BEDTIME PRN cap 09/06/20 04/17/21 History clozapine 100 mg tablet 250 mg PO BEDTIME 01/04/21 04/17/21 History hydroxyzine pamoate 50 mg capsule 50 mg PO BEDTIME PRN 03/21/21 04/17/21 History Allergies Allergy/AdvReac Type Severity Reaction Status Date / Time adhesive tape Allergy Intermediate Blister Verified 04/14/21 01:11 aspirin Allergy Intermediate RASH Verified 04/14/21 01:11 benztropine Allergy Intermediate RASH Verified 04/14/21 01:11 NSAIDS (Non-Steroidal Allergy Intermediate RASH Verified 04/14/21 01:11 Anti-Inflamma ziprasidone Allergy Unknown UNKNOWN Verified 04/14/21 01:11 doxycycline AdvReac Vomiting Verified 04/14/21 01:11 oxycodone AdvReac Anaphylaxis Verified 04/14/21 01:11 Exam Vital signs: Vital Signs Temp 97.8 F 03/20/21 16:05 Pulse 87 03/20/21 16:05 Resp 18 03/20/21 16:05 BP 141/75 H 03/20/21 16:05 Pulse Ox 96 03/20/21 16:05 Weight 53.9 kg Body Mass Index 21.0 - Constitutional Present: mild distress - Routine HEENT Exam Head: Present: normal inspection, normocephalic Eye: Present: normal appearance ENT: Present: mucous membranes moist - Routine Neck Exam Present: full ROM - Routine Respiratory Exam Present: decreased breath sounds, CTAB - Routine Cardiovascular Exam Cardiovascular: Present: RRR, S1, S2 - Routine Abdominal Exam Present: nontender - Routine Rectal Exam Patient deferred: digital exam - Routine Extremities Exam Present: nontender - Routine Back/Spine/Pelvis Exam Back/Spine: Present: full ROM - Routine Skin Exam Present: intact - Routine Neurological Exam Present: alert, oriented X3 - Routine Psychiatric Exam Present: normal affect Data - Labs CBC & Chem 7: 03/20/21 16:07 03/20/21 16:07 Labs: 03/01/21 15:42 CA 27.29 Routine Complete Blood Count Auto Diff Routine Comprehensive Met. Panel Routine 03/20/21 16:07 CMP [Comprehensive Met. Panel] Routine Complete Blood Count Auto Diff Routine Laboratory Last Values WBC 9.5 X10*3/uL (4.8-10.8) 03/20/21 16:07 RBC 3.68 X10*6/uL (4.20-5.50) L 03/20/21 16:07 Hgb 11.7 g/dl (12.0-16.0) L 03/20/21 16:07 Hct 36.6 % (37-47) L 03/20/21 16:07 MCV 99.5 fL (80-98) H 03/20/21 16:07 MCH 31.8 pg (27.0-33.0) 03/20/21 16:07 MCHC 32.0 g/dl (31.0-35.0) 03/20/21 16:07 RDW 14.2 % (11.0-16.0) 03/20/21 16:07 Plt Count 273 X10*3/uL (160-400) 03/20/21 16:07 MPV 9.0 fL (9.4-12.3) L 03/20/21 16:07 Immature Gran % (Auto) 0.6 % (0.0-0.4) H 03/20/21 16:07 Neut % (Auto) 70.3 % (45-73) 03/20/21 16:07 Lymph % (Auto) 11.8 % (20-40) L 03/20/21 16:07 [place] % (Auto) 10.9 % (2-11) 03/20/21 16:07 Eos % (Auto) 5.8 % (0-4) H 03/20/21 16:07 Baso % (Auto) 0.6 % (0-2) 03/20/21 16:07 Lymph # (Auto) 1.1 X10*3/uL (1.2-4.9) L 03/20/21 16:07 [place] # (Auto) 1.0 X10*3/uL (0.1-1.2) 03/20/21 16:07 Eos # (Auto) 0.6 X10*3/uL (0.0-0.4) H 03/20/21 16:07 Baso # (Auto) 0.1 X10*3/uL (0.0-0.2) 03/20/21 16:07 Abs Immat Gran (auto) 0.06 X10*3/uL (0.00-0.03) H 03/20/21 16:07 Absolute Neuts (auto) 6.7 X10*3/uL (2.0-8.3) 03/20/21 16:07 Absolute Nucleated RBC 0.000 X10*3/uL (0.0-0.012) 03/20/21 16:07 Nucleated RBC % (auto) 0.0 /100WBC (0.0-0.2) 03/20/21 16:07 Sodium 138 mmol/L (135-145) 03/20/21 16:07 Potassium 5.3 mmol/L (3.3-5.1) H 03/20/21 16:07 Chloride 101 mmol/L (96-108) 03/20/21 16:07 Carbon Dioxide 23 mmol/L (22-29) 03/20/21 16:07 Anion Gap 19 (12-20) 03/20/21 16:07 BUN 32 mg/dL (9-16) H 03/20/21 16:07 Creatinine 4.87 mg/dL (0.5-1.4) H* 03/20/21 16:07 Estim Creat Clear Calc 8.5 03/20/21 16:07 Estimated GFR 9 03/20/21 16:07 Random Glucose 81 mg/dL (60-115) 03/20/21 16:07 Calcium 9.2 mg/dL (8.4-10.2) 03/20/21 16:07 Total Bilirubin 0.5 mg/dL (0.0-1.0) 03/20/21 16:07 AST 35 U/L (5-31) H D 03/20/21 16:07 ALT 61 U/L (0-31) H 03/20/21 16:07 Alkaline Phosphatase 203 U/L (39-117) H 03/20/21 16:07 Total Protein 7.0 g/dL (6.5-8.0) 03/20/21 16:07 Albumin 4.1 g/dL (3.5-5.0) 03/20/21 16:07 CA 27-29 20 U/mL (<38) 03/01/21 15:42 Assessment and Plan Patient Active problem list reviewed?: Yes (1) Breast cancer, right breast Status: Acute Assessment and plan: This is a pleasant 75-year-old lady with a previous history of breast cancer diagnosed in 2006. She had lumpectomy followed by radiation therapy. She now has right-sided breast cancer. She underwent lumpectomy and sentinel node biopsy on 01/23. Pathology revealed: Tumor size: 1.4 cm. Tumor focality: Unifocal. DCIS: Present. Nuclear grade: 2-3. EIC: Positive. LCIS: Not identified. Type: Ductal with micro papillary features. Nuclear pleomorphism score: 2. Mitotic score: 2. Margins, invasive tumor: Negative after revision. Margin DCIS: Negative, within microns of new margin. Lymph nodes: Number examined: 5. [place] nodes: 4. Axillary nodes: 1. Number involved: 1. With micro metastases: 1. TNM: pT1c,N1mi(sn)(i+). She does have a close DCIS margin, with on positive node with micrometastases. She is not too keen on having more surgery. She is willing to undergo radiation therapy. Based upon her tumor size and axillary node status she acedemically would be a candidate for chemotherapy. However with her comorbidities, being dialysis dependent, I would be concerned about serious treatment induced toxicity. She would be at a much higher risk of neutropenic sepsis/pneumonia. She is not keen on getting chemotherapy. She is rather fearful of the potential side effects. Her tumor is receptor positive. She would benefit from antiestrogen therapy. I checked an Oncotype DX. The recurrence score is 19 so intermediate. Just confirms that she can avoid chemotherapy. I proceeded with a PET scan for further staging, workup. PET scan from 03/13 revealed: There are 2 areas of abnormal activity in the left para-aortic lymph node and left upper lobe nodule. No additional areas of abnormal metabolic activity seen in the chest, abdomen, pelvis or the neck to suspect any distant metastatic disease. Her bone density revealed: Osteoporosis. l proceeded with antiestrogen therapy. She was deemed a candidate for tamoxifen, initially, in view of that. She was given information to review. Details of the regimen including potential side effects of hot flashes headache dizziness nausea vomiting diarrhea, risk of endometrial toxicity thromboembolic phenomena ocular toxicity were all addressed with her. She understood and was willing to proceed. She has been tolerating it very well. Unfortunately she was admitted with a renal hematoma. She had a UTI. That has been treated. Her labs from April 14: WBC 9.1, HGB 7.6, HCT 24.3, PLT 299. CMP: [place] WNL, BUN 17, HYDROGEN OPERATOR 3.3, GLU 83. A lb 3.1, [place] 9.8, iron 55, IBC 226, saturation 24, ferritin 2248. PLAN: She is rather anemic. That could explain her fatigue. She is going for dialysis tomorrow. I gave her labs to the so that he can bring it to the attention of the information security manager to see if she can get a transfusion during the dialysis. I will arrange for bisphosphonate in a few months. She will complete radiation therapy next Friday. She will return in 3 months for a follow-up visit. Thank you, CC: Dr. Mateo Terry/ [place] - Time Spent With Patient Time Spent with Patient (in minutes): 30
--- NOTE | 2021-04-17 16:30 | MHC.HEMONCMA ---
Pt came in for onc follow up and states she is doing well. clinical summary was updated and labs were drawn. pt will be in 2 months for follow up on 07/17/2022.
[2021-09-21 13:31] LABS: MANUAL DIFF FLAG NO
[2021-09-21 13:34] VITALS: BP 121/58; PULSE 85; RESP 20; TEMP 36.6; O2SAT 96; BMI 20.7
--- NOTE | 2021-09-21 13:38 | PM.HEMONCPN ---
Medical Summary - Medical Summary Date of Service: 09/21/21 Chief complaint: FOLLOW-UP FOR: RIGHT BREAST CANCER. Medical Summary: DIAGNOSIS: RIGHT BREAST CANCER. Oncotype DX recurrence score: Intermediate at 19. Distant recurrence risk at 9 years with AI or tamoxifen: 16%. Interval History Interval history: Evette Barrett is a pleasant 75 year old lady, here for a follow-up visit. She tells me lately she has been doing well. Back in June she developed bowel obstruction. She was transferred to [facility]. She had to have surgery. She was in house for 3 and half weeks. She required intubation. She has recovered well. She is not able to walk yet she is on a wheelchair today. She complains of arthritis of her right shoulder. She has had some neuropathy over her feet. She used to see Dr. Short. Would like to go back to see him. She denies any breast related complaints. She feels rather fatigued. No fever nor chills. Her appetite has picked up. She has lost some weight. She denies headache nor dizziness. No chest pain. She does have COPD so gets short of breath at times. Denies abdominal pain. She has a big scar. She has nausea for which she takes medications. She has gas. She gets occasional diarrhea. No blood in the stools. Denies dysuria no hematuria. She produces little urine. She is on dialysis. She has occasional pain in her hips and shoulders. She gets shots for them. Four years ago she had a setback and could not walk. She got physical therapy. She is now making progress. Denies depression. She does get itching on her skin. She takes hydroxyzine. Previous history: She has a previous history of left breast cancer. She had right lumpectomy on 01/23. She is recovering from that. Pathology: Invasive ductal carcinoma, grade 2, 0.9 cm, positive superior margin. Ductal carcinoma in Situ, nuclear grade 2-3, with patchy necrosis, within microns of multiple margins. [employer] node 1.: Metastatic carcinoma seen in 1 of 3 lymph nodes examined. Additional margin right superior excision: Invasive ductal carcinoma, grade 2, 0.5 cm, negative margin. Ductal carcinoma in Situ, grade 2-3, within microns of margin. Re-excision: Benign breast tissue, no carcinoma seen. Synoptic data: Tumor size: 1.4 cm. Tumor focality: Unifocal. DCIS: Present. Nuclear grade: 2-3. EIC: Positive. LCIS: Not identified. Type: Ductal with micro papillary features. Nuclear pleomorphism score: 2. Mitotic score: 2. Margins, invasive tumor: Negative after revision. Margin DCIS: Negative, within microns of new margin. Lymph nodes: Number examined: 5. [employer] nodes: 4. Axillary nodes: 1. Number involved: 1. With micro metastases: 1. TNM: pT1c,N1mi(sn)(i+). Independent Living Specialist History: Menarche at 16 years. Menopause at 52. She was on HRT for a year or 2. Past medical history: She was in house between April 06 and . Discharge summary: She presented with right-sided pain, nausea. Patient started having right-sided abdominal pain in the last 24 hours, she endorses some nausea.? When she got to the hospital, she also endorses that she started having some diarrhea as well.? I suspect the patient is not the best historian.? Otherwise, she denies chest pain, shortness of breath, fever chills, vomiting. Of note, the patient was recently discharged from this hospital on 03/29/2021 after being treated for renal hematoma. In the ED, vitals were unremarkable.? Labs were pertinent for the following:? WBC 21.9, hemoglobin 9.0, creatinine was elevated at 4.84 (in the setting of end-stage renal disease), urine was positive for UTI.? CT of the abdomen/pelvis without contrast did show some perinephric stranding again, somewhat decreased from prior (please see official report for full details). In the ED, the patient was treated with ceftriaxone.? The patient is being admitted for UTI, leukocytosis. This patient with bladder CA and hydronephrosis s/p ureteral stents was admitted to the medical/surgical floor for suspected UTI and flank pain from R renal subcapsular hematoma. She was treated with IV ceftriaxone. Blood cultures were negative. Urine culture was not collected, though she still makes a little urine. CT showed the hematoma was similar in size to previous CT, and the perinephric stranding had actually decreased. Leukocytosis resolved. She was continuned on HD as per her usual schedule ([facility] She did require medical treatment for hyperkalemia with Lokelmia, albuterol, insulin and calcium gluconate, though she did not have EKG changes. HD was performed with low-K bath. She was discharged home to resume VNA services and will continue HD MWF. She will receive erythropoeitin at HD. She will take 5 more days of antibiotic treatment with cefuroxime. She should follow up with her urologist in 1-2 weeks. She was seen by Pulmonary on 09/06/2021: Since we last spoke she had a severe small bowel obstruction and ultimately transferred to [facility]. She underwent surgery required prolonged intubation and multiple weeks in the unit. She was able to be successfully extubated. Does question of aspiration. She was able to heal. Currently she is gaining some weight. Her respiratory status is stable. She has multiple inhalers including Anoro and also Trelegy. PLAN: At this point will try to hold off on the inhaled steroids. The patient does not have any congestion or wheezing. We did review her CT scan of the abdomen that she had prior to being transferred over to [facility], demonstrating what appeared to be new airspace disease on the left consistent with pneumonia and chronic findings in the right lower lobe. Family history: Sister and brother have heart issues. Sister had pancreatitis. 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 She is . She has no children. She smoked a pack and half till 2016. Denies alcohol. Review of Systems - Constitutional Reports no additional constitutional complaints - Eyes Reports no additional eye complaints - ENT Reports no additional ear, nose, mouth, and throat complaints - Cardiovascular Reports no additional cardiovascular complaints - Respiratory Reports no additional respiratory complaints - Gastrointestinal Reports no additional gastrointestinal complaints - Genitourinary Reports no additional female genitourinary complaints - Musculoskeletal Reports no additional musculoskeletal complaints - Integumentary/Breasts Skin/Breast: Reports no additional skin complaints - Neurologic Reports no additional neurologic complaints - Psychiatric Reports no additional psychiatric complaints - Endocrine Reports no additional endocrine complaints - Hematologic/Lymphatic Reports no additional hematologic/lymphatic complaints - Allergic/Immunologic Reports no additional allergic/immunologic complaints [facility] Medical History: Medical History (Last Updated 09/03/21 @ 13:57 by Richi Ta MD) Abdominal pain Acute UTI Arrhythmia Arthritis AV fistula Bipolar 1 disorder Bipolar disorder Bladder cancer Bowel obstruction Breast cancer Bronchopneumonia Cancer Chronic nausea Chronic respiratory failure COPD (chronic obstructive pulmonary disease) COVID-19 vaccine administered Dialysis patient Diarrhea Dysphagia ESRD (end stage renal disease) History of 2019 novel coronavirus disease (COVID-19) Hx of hypotension Hx of radiation therapy Hydronephrosis Hyperkalemia Hypothyroidism Invasive ductal carcinoma of breast Lab test negative for COVID-19 virus Lab test positive for detection of COVID-19 virus Leukocytosis MSSA bacteremia Paroxysmal A-fib Poor appetite Positive FIT (fecal immunochemical test) Pulmonary emboli Renal failure SBO (small bowel obstruction) Seizure SIRS (systemic inflammatory response syndrome) Thyroid disease Ureteral cancer Vomiting Wears dentures Functional capacity: wheelchair bound Family History: Family History (Last Reviewed 09/03/21 @ 13:56 by Richi Ta MD) Father Dementia Mother Bipolar 1 disorder Brother Heart attack Other Mental health disorder Surgical History: Surgical History (Last Reviewed 09/03/21 @ 13:56 by Richi Ta MD) History of abdominal surgery History of appendectomy History of back surgery History of bladder surgery Onset Date: ~06/2020 History of cholecystectomy History of esophagogastroduodenoscopy (EGD) History of hand surgery History of lumpectomy of left breast History of lumpectomy of right breast History of tonsillectomy Hx of colonoscopy Hx of foot surgery Social History: Social History (Last Reviewed 09/03/21 @ 13:56 by Richi Ta MD) Living Situation History: Household Members: Spouse Housing: House Are you a primary home care nurse to a significant other at home: No Do you presently have visiting nurse or other home services: Yes Tobacco History: Patient Tobacco Use Status: Former Tobacco user Tobacco use type: Cigarette Cigarette Packs Per Day: 1.5 Years Smoked: 50 Smoke Quit Date: 4 years ago e-Cigarette/Vaping Use: Never Used Second Hand Smoke Exposure: No Advance Directives: Advance Directives Date on File: 01/23/21 Nutrition Assessment: Patient : No Occupation Assessmet: service: No Current occupational status: disabled Second hand tobacco smoke exposure: No Home Medications and Allergies Home Medications Medication Instructions Recorded Confirmed Type clonazepam 1 mg tablet 1 mg PO BEDTIME 05/21/20 09/21/21 History lamotrigine 150 mg tablet 150 mg PO BEDTIME 05/21/20 09/21/21 History acetaminophen 325 mg tablet 650 mg PO BID PRN 05/22/20 09/21/21 History sevelamer carbonate 800 mg tablet 800 mg PO TIDWM 05/22/20 09/21/21 History clozapine 100 mg tablet 150 mg PO BEDTIME 01/04/21 09/21/21 History melatonin 3 mg tablet 6 mg PO BEDTIME PRN 07/15/21 09/21/21 History tamoxifen 20 mg tablet 20 mg PO DAILY@1400 07/15/21 09/21/21 History apixaban 2.5 mg tablet (Eliquis) 2.5 mg PO BID 09/03/21 09/21/21 History midodrine 10 mg tablet 10 mg PO TID PRN 09/06/21 09/21/21 History albuterol sulfate 2.5 mg INHALATION DAILY 09/21/21 09/21/21 History Allergies Allergy/AdvReac Type Severity Reaction Status Date / Time adhesive tape Allergy Intermediate Blister Verified 09/06/21 14:10 aspirin Allergy Intermediate RASH Verified 09/06/21 14:10 benztropine Allergy Intermediate RASH Verified 09/06/21 14:10 NSAIDS (Non-Steroidal Allergy Intermediate RASH Verified 09/06/21 14:10 Anti-Inflamma ziprasidone Allergy Intermediate UNKNOWN Verified 09/06/21 14:10 doxycycline AdvReac Vomiting Verified 09/06/21 14:10 oxycodone AdvReac Anaphylaxis Verified 09/06/21 14:10 Exam Vital signs: Vital Signs Temp 98.3 F 04/17/21 15:16 Pulse 90 04/17/21 15:16 Resp 12 04/17/21 15:16 BP 117/62 04/17/21 15:16 Pulse Ox 93 04/17/21 15:16 Weight 55.3 kg BMI result Body Mass Index 21.6 - Constitutional Present: mild distress - Routine HEENT Exam Head: Present: normal inspection, normocephalic Eye: Present: normal appearance ENT: Present: mucous membranes moist - Routine Neck Exam Present: full ROM - Routine Respiratory Exam Present: decreased breath sounds, CTAB - Routine Cardiovascular Exam Cardiovascular: Present: RRR, S1, S2 - Routine Abdominal Exam Present: nontender - Routine Rectal Exam Patient deferred: digital exam - Routine Extremities Exam Present: nontender - Routine Back/Spine/Pelvis Exam Back/Spine: Present: full ROM - Routine Skin Exam Present: intact - Routine Neurological Exam Present: alert, oriented X3 - Routine Psychiatric Exam Present: normal affect Data - Labs CBC & Chem 7: 02/04/22 13:29 09/21/21 13:29 Assessment and Plan Patient Active problem list reviewed?: Yes (1) Breast cancer, right breast Status: Acute Assessment and plan: This is a pleasant 75-year-old lady with a previous history of breast cancer diagnosed in 2006. She had lumpectomy followed by radiation therapy. She now has right-sided breast cancer. She underwent lumpectomy and sentinel node biopsy on 01/23. Pathology revealed: Tumor size: 1.4 cm. Tumor focality: Unifocal. DCIS: Present. Nuclear grade: 2-3. EIC: Positive. LCIS: Not identified. Type: Ductal with micro papillary features. Nuclear pleomorphism score: 2. Mitotic score: 2. Margins, invasive tumor: Negative after revision. Margin DCIS: Negative, within microns of new margin. Lymph nodes: Number examined: 5. [employer] nodes: 4. Axillary nodes: 1. Number involved: 1. With micro metastases: 1. TNM: pT1c,N1mi(sn)(i+). She does have a close DCIS margin, with on positive node with micrometastases. She is not too keen on having more surgery. She is willing to undergo radiation therapy. Based upon her tumor size and axillary node status she acedemically would be a candidate for chemotherapy. However with her comorbidities, being dialysis dependent, I would be concerned about serious treatment induced toxicity. She would be at a much higher risk of neutropenic sepsis/pneumonia. She is not keen on getting chemotherapy. She is rather fearful of the potential side effects. Her tumor is receptor positive. She would benefit from antiestrogen therapy. I checked an Oncotype DX. The recurrence score is 19 so intermediate. Just confirms that she can avoid chemotherapy. I proceeded with a PET scan for further staging, workup. PET scan from 03/13 revealed: There are 2 areas of abnormal activity in the left para-aortic lymph node and left upper lobe nodule. No additional areas of abnormal metabolic activity seen in the chest, abdomen, pelvis or the neck to suspect any distant metastatic disease. Her bone density revealed: Osteoporosis. l proceeded with antiestrogen therapy. She was deemed a candidate for tamoxifen, initially, in view of that. She was given information. Details of the regimen including potential side effects of hot flashes headache dizziness nausea vomiting diarrhea, risk of endometrial toxicity thromboembolic phenomena ocular toxicity were all addressed with her. She understood and was willing to proceed. She has been tolerating it very well. Unfortunately she was admitted with a bowel obstruction. Was transferred to be the in women very she had surgery. She had a [facility] course. She is on the mend. She goes for dialysis Friday. Her labs from April 14: WBC 9.1, HGB 7.6, HCT 24.3, PLT 299. CMP: Lytes WNL, BUN 17, [employer] 3.3, GLU 83. A lb 3.1, [place] 9.8, iron 55, IBC 226, saturation 24, ferritin 2248. PLAN: She is rather anemic. Likely related to ACD from her kidney disease as well as recent hospitalization. She is going for dialysis later today. I gave her a copy of labs so she can bring it to the attention of the it architecture consultant. She is probably getting Procrit there. She will return in 6 months for a follow-up visit. I will arrange for bisphosphonate in a few months. Thank you, CC: Dr. Mateo Taylor - Time Spent With Patient Time Spent with Patient (in minutes): 30
[2021-09-21 13:44] LABS: Basophils Absolute Auto 0.1 X10*3/uL (0.0-0.2); Basophils Percent Auto 0.8 % (0-2); Eosinophils Absolute Auto 0.4 X10*3/uL (0.0-0.4); Eosinophils Percent Auto 6.5 % (0-4); Hematocrit 30.1 % (37.0-47.0); Hemoglobin 9.7 g/dl (12.0-16.0); Imm Gran Abs Auto 0.03 X10*3/uL (0.00-0.03); Imm Gran Pct Auto 0.5 % (0.0-0.4); Lymphocytes Absolute Auto 0.9 X10*3/uL (1.2-4.9); Lymphocytes Percent Auto 14.2 % (20-40); Mean Corpuscular HGB Conc 32.2 g/dl (31.0-35.0); Mean Corpuscular Hemoglobin 32.6 pg (27.0-33.0); Mean Platelet Volume 9.7 fL (9.4-12.3); Monocytes Absolute Auto 0.9 X10*3/uL (0.1-1.2); Monocytes Percent Auto 13.7 % (2-11); Neutrophils Absolute Auto 4.1 x10*3/uL (2.0-8.3); Neutrophils Percent Auto 64.3 % (45-73); Platelet Count 231 X10*3/uL (160-400); Red Blood Count 2.98 X10*6/uL (4.20-5.50); Red Cell Distribution Width 15.1 % (11.0-16.0); White Blood Count 6.4 X10*3/uL (4.8-10.8)
[2021-09-21 13:58] LABS: Alanine Aminotransferase 34 U/L (0-31); Albumin Level 3.7 g/dL (3.5-5.0); Alkaline Phosphatase 157 U/L (39-117); Anion Gap 18 (12-20); Aspartate Amino Transferase 28 U/L (5-31); Bilirubin Total 0.4 mg/dL (0.0-1.0); Blood Urea Nitrogen 46 mg/dL (9-16); Calcium 10.2 mg/dL (8.4-10.2); Carbon Dioxide 21 mmol/L (22-29); Chloride 107 mmol/L (96-108); Creatinine Clr Calc Pharmacy 7.1; Estimated Glomerular Filt Rate 7; Glucose Random 100 mg/dL (60-115); Potassium 4.8 mmol/L (3.3-5.1); Sodium 141 mmol/L (135-145); Total Protein 6.8 g/dL (6.5-8.0)
--- NOTE | 2021-09-21 15:20 | HO.HEMONCPA ---
NO PA REQUIRED FOR PROLIA([id number]). DRUG COVERED UNDER MEDICARE PART B BENEFITS.
--- NOTE | 2021-09-21 16:11 | MHC.HEMONC ---
Patient arrived via wheelchair with her , Neptali for a follow up with Dr Matos. Vital signs done and medications reviewed. Dr Matos in to see patient, follow up in 6 months. Patient to receive Prolia Q6 months, to start with upcoming mammogram.
--- NOTE | 2021-10-02 08:46 | MHC.HEMONC ---
Request for Mammogram given to Zora Light to put in order hogshead roller.
--- NOTE | 2021-10-25 08:15 | HE.ONCSEC ---
PATIENT'S CAME IN AT THE END OF THE DAY YESTERDAY , INFORMING US THAT HE HEARD THE REMINDER CALL I GAVE HIS OF HER INJECTION APPT , BUT WANTED TO INFORM US THAT SHE WAS IN THE HOSPITAL . I INFORMED THE NURSE ASSIGNED AND SHE RESCHEDULED THE INJECTION APPT . I CALLED PATIENT AND LEFT A VOICEMAIL INFORM HIM THE DATE AND TIME OF THE RESCHEDULED INJECTION APPT FOR HIS .
--- NOTE | 2021-11-06 14:09 | HO.HEMONCSCH ---
Pt did not arrive for sched Denosumab injection. Nurse irlanda santana/ Keshia at [facility], who confirmed that the pt is being evaluated at the ED, will not be attending today's appt. Nurse notified Pamela at pharmacy and notified Dr. Matos. Nurse to call pt and her the following day to reschedule Denosumab injection.
== END 2021-12-14 | disposition home or self-care (01) ==
LOC: HO.ONC 13:00
PROVIDERS: PCP Internal Medicine; Referring Provider Internal Medicine Medical Oncology; Visit Provider Internal Medicine Medical Oncology
DX: C50.911 Malignant neoplasm of unspecified site of right female breast (principal); Z79.810 Long term (current) use of selective estrogen receptor modulators (SERMs); D64.9 Anemia, unspecified; M81.0 Age-related osteoporosis without current pathological fracture; N18.6 End stage renal disease; Z99.2 Dependence on renal dialysis; Z92.3 Personal history of irradiation
CPT/HCPCS: 36415; 80053; 85025; 86300; 99204; 99214; J2250; J2370; J2405; J3010

== ENCOUNTER → 2021-09-27 15:00 | Outpatient (BNVA) | payer MEDICARE, BC, SELFPAY | PROVIDERS: PCP Internal Medicine; Referring Provider Internal Medicine; Visit Provider Internal Medicine Cardiovascular Disease | DX: Z13.89 Encounter for screening for other disorder (principal) ==

== ENCOUNTER → 2021-10-16 13:10 | Outpatient (BNVA) | payer MEDICARE, BC, SELFPAY | PROVIDERS: PCP Internal Medicine; Visit Provider Urology | DX: C67.9 Malignant neoplasm of bladder, unspecified (principal) | CPT/HCPCS: 52000; 99212 ==

== ENCOUNTER 2021-10-19 13:26 | Emergency (ER) | payer MEDICARE, BC, SELFPAY ==
[2021-10-19 14:01] VITALS: BP 105/51; PULSE 95; RESP 18; TEMP 37; O2SAT 94; BMI 21.2
== END 2021-10-19 16:49 | disposition left against medical advice (07) ==
PROVIDERS: Emergency Provider Emergency Medicine; PCP Internal Medicine
DX: R53.1 Weakness (principal); R19.7 Diarrhea, unspecified
CPT/HCPCS: 99281; 99282

== ENCOUNTER 2021-10-19 20:39 | Inpatient (IN) | payer MEDICARE, BC, SELFPAY ==
--- NOTE | ~2021-10-19 | CT_ITS ---
EXAM: NONCONTRAST CT OF THE CHEST; NONCONTRAST CT OF THE ABDOMEN AND PELVIS INDICATION: Shortness of breath, abdominal pain COMPARISON: 07/15/2021 TECHNIQUE: No IV contrast was utilized. Multidetector helical imaging was performed through the chest, abdomen, and pelvis. Coronal and sagittal reformatted images were created at the technologist workstation. DOSE LOWERING TECHNIQUES: This CT examination was performed using dose optimization techniques as appropriate, variously including the following: - Automated exposure control - Adjustment of mA and/or kV according to patient size (this includes techniques or standardized protocols for targeted exams were dose is matched to indication/reason for exam; i.e. extremities or head) - Use of iterative reconstruction technique DLP: 918 mGy-cm FINDINGS: Chest: There is moderate emphysema with upper lobe predominance. There is redemonstration of chronic patchy, mostly nodular opacities bilaterally, left greater than right; overall appearance is similar to prior PET/CT of 03/13/2021. At least some of this appears hyperdense, suggesting metastatic calcifications in the setting of chronic renal failure. There is dependent opacity in the posterior basilar right lower lobe which appears similar to 07/15/2021. No pneumothorax or pleural effusion. No mediastinal lymphadenopathy is seen. Cardiac size appears within normal limits. Trace pericardial effusion is present. Coronary artery calcifications are present. There is atherosclerotic calcification along the aorta. Left IJ catheter tip lies in the region of the right atrium. No axillary lymphadenopathy is present. Abdomen/Pelvis: The liver is homogeneous in attenuation without intrahepatic biliary ductal dilatation. Status post cholecystectomy. The unenhanced spleen and pancreas are grossly unremarkable. Stable left adrenal nodule measuring up to approximately 2.5 cm, indeterminate. Right adrenal gland is unremarkable. Multiple bilateral renal cysts are redemonstrated along with scattered calcifications. No hydronephrosis. No renal or ureteral calculi are present. The urinary bladder is mildly distended with diffuse mural prominence, similar to prior. The uterus and adnexa are unremarkable. Moderate distention of the stomach and duodenum, predominantly with fluid and is similar to prior. Status post right hemicolectomy. No convincing evidence of bowel obstruction. No significant colonic wall thickening is seen. No free fluid or free air is identified. There is atherosclerotic calcification along the aorta and iliac arteries. Small amount of venous gas is noted in the left common femoral vein and branches. Several mildly prominent retroperitoneal lymph nodes are similar to prior. Degenerative changes are present in the hips and lumbar spine. CT/CT abdomen pelvis wo con IMPRESSION: 1. Similar pulmonary findings compared to prior, including upper lobe predominant emphysema and chronic patchy, mostly nodular opacities bilaterally which suggests sequelae of chronic renal failure. Posterior basilar opacity in the right lower lobe may represent atelectasis or potentially sequelae of aspiration. 2. No new acute findings identified in the abdomen/pelvis. Chronic changes including indeterminate left adrenal nodule, multiple bilateral renal cysts and calcifications, and a mildly prominent retroperitoneal lymph nodes. 3. Small amount of venous gas in the left femoral region; question sequelae of attempted line placement.
--- NOTE | ~2021-10-19 | XR_ITS ---
EXAMINATION: XR CHEST CLINICAL INFORMATION: Cough COMPARISON: 07/15/2021 TECHNIQUE: Frontal view of the chest was obtained. FINDINGS: Left IJ catheter tip lies in the region of the proximal right atrium. Lung volumes are symmetric. There are persistent patchy bibasilar opacities, left greater than right and slightly worsened at the left base from prior. Upper lungs are well aerated. No appreciable pneumothorax or significant pleural effusion. Cardiac size is within normal limits. Calcification is present at the aortic arch. Right humeral head elevation suggests chronic rotator cuff injury. Right axillary stent and bilateral axillary clips are noted. XR/XR chest 1V IMPRESSION: Persistent patchy bibasilar opacities, left greater than right and slightly worsened at the left base from prior. At least some of the left basilar opacity is suspected to represent calcification in the setting of chronic renal failure, though superimposed developing acute consolidation may also be present.
[2021-10-19 20:46] VITALS: BP 84/47; PULSE 118; RESP 16; TEMP 37.3; O2SAT 91; BMI 21.2
--- NOTE | 2021-10-19 20:56 | PC.NURSE ---
pt is a difficult stick, charge weigher called and updated on pt status, low sat and low bp, pt just came from dialysis. room being cleaned for pt at this time. pt is alert and oriented x3. non prod cough noted.
--- NOTE | 2021-10-19 22:00 | ECG_ITS ---
Test Reason : WEAKNESS Blood Pressure : / mmHG Vent. Rate : 116 BPM Atrial Rate : 116 BPM P-R Int : 148 ms QRS Dur : 082 ms QT Int : 338 ms P-R-T Axes : 048 025 049 degrees QTc Int : 469 ms Sinus tachycardia with Premature atrial complexes with Aberrant conduction Nonspecific ST abnormality Abnormal ECG When compared with ECG of 15-JUL-2021 10:49, Aberrant conduction is now Present Referred By: Jacqueline Patel Electronically Signed By:Amol Basilio
[2021-10-19 22:37] VITALS: BP 96/55; PULSE 69; TEMP 37.7; O2SAT 92
[2021-10-19 22:39] LABS: MANUAL DIFF FLAG NO
[2021-10-19 22:41] LABS: Basophils Percent Auto 0.3 % (0-2); Eosinophils Absolute Auto 0.2 X10*3/uL (0.0-0.4); Eosinophils Percent Auto 1.5 % (0-4); Hematocrit 35.2 % (37.0-47.0); Hemoglobin 11.1 g/dl (12.0-16.0); Imm Gran Abs Auto 0.05 X10*3/uL (0.00-0.03); Imm Gran Pct Auto 0.3 % (0.0-0.4); Lymphocytes Absolute Auto 0.6 X10*3/uL (1.2-4.9); Lymphocytes Percent Auto 4.1 % (20-40); Mean Corpuscular HGB Conc 31.5 g/dl (31.0-35.0); Mean Corpuscular Volume 104.8 fL (80.0-98.0); Mean Platelet Volume 9.5 fL (9.4-12.3); Monocytes Absolute Auto 1.1 X10*3/uL (0.1-1.2); Monocytes Percent Auto 7.3 % (2-11); Neutrophils Absolute Auto 12.7 x10*3/uL (2.0-8.3); Neutrophils Percent Auto 86.5 % (45-73); Platelet Count 243 X10*3/uL (160-400); Red Blood Count 3.36 X10*6/uL (4.20-5.50); Red Cell Distribution Width 13.8 % (11.0-16.0); White Blood Count 14.6 X10*3/uL (4.8-10.8)
[2021-10-19 23:09] LABS: Anion Gap 19 (12-20); Blood Urea Nitrogen 11 mg/dL (9-16); Calcium 10.2 mg/dL (8.4-10.2); Carbon Dioxide 21 mmol/L (22-29); Chloride 100 mmol/L (96-108); Creatinine Clr Calc Pharmacy 15.3; Estimated Glomerular Filt Rate 18; Glucose Random 181 mg/dL (60-115); Potassium 3.6 mmol/L (3.3-5.1); Sodium 136 mmol/L (135-145)
[2021-10-19 23:15] VITALS: BP 95/51; PULSE 72; RESP 18; O2SAT 95
[2021-10-19 23:27] LABS: Appearance Urine TURBID; Color Urine YELLOW; Glucose Urine UA NEG (NEG); Leukocyte Esterase Urine 2+ (NEG); Nitrite Urine NEG (NEG); PH 7.5 (5.0-8.0); Specific Gravity - Urine 1.025 (1.005-1.025); UACC Culture Trigger YES; Urine Blood 2+ (NEG); Urine Ketones NEG (NEG); Urine Protein 3+ MG/DL (NEG-TRACE)
[2021-10-19 23:30] VITALS: BP 95/41; PULSE 110; RESP 19; TEMP 37.8; O2SAT 94
[2021-10-19 23:31] LABS: Thyroid Stimulating Hormone 7.69 uIU/mL (0.32-4.0)
[2021-10-19 23:33] LABS: Bacteria Urine 4+ /LPF; Squamous Epithelial Cell Urine 1+ /LPF; WBC Urine 50-75 /HPF (0-4)
--- NOTE | 2021-10-19 23:47 | ED.GENADULT ---
HPI - General Adult General Chief complaint: Weakness Stated complaint: weak Time Seen by Provider: 10/19/21 22:00 Source: patient and family () Mode of arrival: ambulatory History of Present Illness HPI narrative: 76-year-old female ESRD, on dialysis, last dialysis was today and reports 2 kg were removed. Patient reports recent treatment with Macrobid. In addition, she reports increasing weakness since Friday, increased fatigue, and pain ?all over?. Otherwise, she denies shortness of breath, chest pain/palpitations and states that she has had multiple episodes of watery diarrhea but denies any nausea or vomiting at this time. Related Data Home Medications Medication Instructions Recorded Confirmed clonazepam 1 mg tablet 1 mg PO BEDTIME 05/21/20 09/27/21 lamotrigine 150 mg tablet 150 mg PO BEDTIME 05/21/20 09/27/21 acetaminophen 325 mg tablet 650 mg PO BID PRN 05/22/20 09/27/21 clozapine 100 mg tablet 150 mg PO BEDTIME 01/04/21 09/27/21 melatonin 3 mg tablet 6 mg PO BEDTIME PRN 07/15/21 09/27/21 tamoxifen 20 mg tablet 20 mg PO DAILY@1400 07/15/21 09/27/21 apixaban 2.5 mg tablet (Eliquis) 2.5 mg PO BID 09/03/21 09/27/21 midodrine 10 mg tablet 10 mg PO TID PRN 09/06/21 09/27/21 albuterol sulfate 2.5 mg INHALATION DAILY 09/21/21 09/27/21 sevelamer carbonate 800 mg tablet 1,600 mg PO .BIDWM tab 09/27/21 09/27/21 Previous Rx's Medication Instructions Recorded prochlorperazine maleate 5 mg 5 mg PO TID PRN #30 tab 03/09/21 tablet benzonatate 200 mg capsule 200 mg PO BID PRN #30 cap 08/30/21 umeclidinium 62.5 mcg-vilanterol 1 inh INHALATION Q24H 90 Days #3 ea 09/06/21 25 mcg/actuation powdr for inhalation (Anoro Ellipta) hydroxyzine pamoate 50 mg capsule 50 mg PO BEDTIME PRN #90 cap 09/09/21 hydrocortisone 2.5 % topical cream 1 appl TOPICAL BID PRN #20 g 09/27/21 levothyroxine 150 mcg tablet 150 mcg PO DAILY #60 tab 09/27/21 (Synthroid) Allergies Allergy/AdvReac Type Severity Reaction Status Date / Time adhesive tape Allergy Intermediate Blister Verified 09/27/21 13:53 aspirin Allergy Intermediate RASH Verified 09/27/21 13:53 benztropine Allergy Intermediate RASH Verified 09/27/21 13:53 NSAIDS (Non-Steroidal Allergy Intermediate RASH Verified 09/27/21 13:53 Anti-Inflamma ziprasidone Allergy Intermediate UNKNOWN Verified 09/27/21 13:53 doxycycline AdvReac Vomiting Verified 09/27/21 13:53 oxycodone AdvReac Anaphylaxis Verified 09/27/21 13:53 Review of Systems Review of Systems: Pertinent positives and negatives as stated in HPI 10 point review of systems is otherwise negative. [facility] Past Medical History Source: nursing notes reviewed Medical History Abdominal pain Acute UTI Arrhythmia Arthritis AV fistula Bipolar 1 disorder Bipolar disorder Bladder cancer Bowel obstruction Breast cancer Bronchopneumonia Cancer Chronic nausea Chronic respiratory failure COPD (chronic obstructive pulmonary disease) COVID-19 vaccine administered Dialysis patient Diarrhea Dysphagia ESRD (end stage renal disease) History of 2019 novel coronavirus disease (COVID-19) Hx of hypotension Hx of radiation therapy Hydronephrosis Hyperkalemia Hypothyroidism Invasive ductal carcinoma of breast Lab test negative for COVID-19 virus Lab test positive for detection of COVID-19 virus Leukocytosis MSSA bacteremia Paroxysmal A-fib Poor appetite Positive FIT (fecal immunochemical test) Pulmonary emboli Renal failure SBO (small bowel obstruction) Seizure SIRS (systemic inflammatory response syndrome) Thyroid disease Ureteral cancer Vomiting Wears dentures Surgical History History of abdominal surgery History of appendectomy History of back surgery History of bladder surgery (~06/2020) History of cholecystectomy History of esophagogastroduodenoscopy (EGD) History of hand surgery History of lumpectomy of left breast History of lumpectomy of right breast History of tonsillectomy Hx of colonoscopy Hx of foot surgery Family History Family History Father Dementia Mother Bipolar 1 disorder Brother Heart attack Other Mental health disorder Social History Social History Household Members: Spouse Housing: House Are you a primary attending ambulatory care to a significant other at home: No Do you presently have visiting nurse or other home services: Yes Alcohol intake: never Patient Tobacco Use Status: Former Tobacco user Quit Date: 4 years ago Tobacco use type: Cigarette Cigarette Packs Per Day: 1.5 Cigarettes Per Day: 30.0 Years Smoked: 50 e-Cigarette/Vaping Use: Never Used Second Hand Smoke Exposure: No Advance Directives: Yes Advance Directives on File: Yes Advance Directives Date on File: 01/24/21 service: No Current occupational status: disabled Cognitive needs: Yes (Walker/Wheelchair) Hearing needs: No Vision needs: Yes (readng glasses) Physical Exam ED Vital Signs: Vital Signs - 24 hr 10/19/21 20:46 10/19/21 22:37 10/19/21 23:15 Temperature 99.2 F 99.9 F Pulse Rate 118 H 69 72 Respiratory Rate 16 18 Blood Pressure 84/47 L 96/55 L 95/51 L Pulse Oximetry 91 L 92 95 10/19/21 23:30 10/20/21 01:22 10/20/21 01:45 Temperature 100.1 F 100 F 99.9 F Pulse Rate 110 H 110 H 112 H Respiratory Rate 19 18 15 Blood Pressure 95/41 L 156/67 H 131/75 Pulse Oximetry 94 94 94 10/20/21 02:17 Temperature 100 F Pulse Rate 113 H Respiratory Rate 18 Blood Pressure 114/53 L Pulse Oximetry 96 BMI result Body Mass Index 21.2 VITAL SIGNS: Reviewed. GENERAL: Chronically ill, cachectic, in no acute distress. HEAD: Normocephalic/atraumatic EYES: PERRLA, EOMI EARS: Ext canals without abnormality OROPHARYNX: no oral lesions noted, posterior pharynx clear NECK: Supple, no adenopathy LUNGS: Good air entry, no tachypnea SpO2<91> CARDIOVASCULAR: Sinus tachycardia and rhythm without noted murmurs, no JVD or lower extremity edema. ABDOMEN: Soft, tender diffuse non-distended with bowel sounds. MUSCULOSKELETAL: Diffuse tenderness, but no deformities, or effusions noted on gross inspection. EXTREMITIES: No cyanosis, clubbing or edema. SKIN: Inspection of the skin reveals no rashes NEUROLOGIC: Alert and oriented x 4. Strength and sensation to light touch were grossly intact x 4. Course Course Course Narrative: 76-year-old female with history and clinical presentation concerning for possible combination of dehydration due to recent dialysis in combination with multiple episodes of diarrhea. Patient is also noted to be mildly hypoxic. 2300: I suspect infection, patient is ESRD on dialysis and so IVF given were only 500 at present due to risk of fluid overload, abx ordered. Review of all investigations consistent with possible right lower lobe aspiration pneumonia although there are noted abnormalities to the urinalysis the this could simply represent colonization as patient does not produce that much urine as she is on dialysis. All results were discussed with the patient, her , and the inpatient hospitalist who accepts admission. Inpatient hospitalist is aware of the conservative fluid treatment due to patient's risk of fluid overload and agrees. Medical Decision Making Lab Data Result diagrams: 10/19/21 22:29 10/19/21 22:29 Labs: Lab Results 10/19/21 10/19/21 10/19/21 Range/Units 22:29 22:29 23:21 WBC 14.6 H (4.8-10.8) X10*3/uL RBC 3.36 L (4.20-5.50) X10*6/uL Hgb 11.1 L (12.0-16.0) g/dl Hct 35.2 L (37.0-47.0) % MCV 104.8 H (80.0-98.0) fL MCH 33.0 (27.0-33.0) pg MCHC 31.5 (31.0-35.0) g/dl RDW 13.8 (11.0-16.0) % Plt Count 243 (160-400) X10*3/uL MPV 9.5 (9.4-12.3) fL Immature Gran % (Auto) 0.3 (0.0-0.4) % Neut % (Auto) 86.5 H (45-73) % Lymph % (Auto) 4.1 L (20-40) % [place] % (Auto) 7.3 (2-11) % Eos % (Auto) 1.5 (0-4) % Baso % (Auto) 0.3 (0-2) % Lymph # (Auto) 0.6 L (1.2-4.9) X10*3/uL [place] # (Auto) 1.1 (0.1-1.2) X10*3/uL Eos # (Auto) 0.2 (0.0-0.4) X10*3/uL Baso # (Auto) 0.0 (0.0-0.2) X10*3/uL Abs Immat Gran (auto) 0.05 H (0.00-0.03) X10*3/uL Absolute Neuts (auto) 12.7 H (2.0-8.3) x10*3/uL Absolute Nucleated RBC 0.000 (0.0-0.012) X10*3/uL Nucleated RBC % (auto) 0.0 (0.0-0.2) /100WBC PT (9.9-13.0) SEC INR (0.9-1.1) Sodium 136 (135-145) mmol/L Potassium 3.6 D (3.3-5.1) mmol/L Chloride 100 (96-108) mmol/L Carbon Dioxide 21 L (22-29) mmol/L Anion Gap 19 (12-20) BUN 11 D (9-16) mg/dL Creatinine 2.66 H (0.5-1.4) mg/dL Estim Creat Clear Calc 15.3 Estimated GFR 18 Random Glucose 181 H (60-115) mg/dL Lactic Acid (0.5-2.0) mmol/L Calcium 10.2 (8.4-10.2) mg/dL TSH 7.69 H (0.32-4.0) uIU/mL Urine Color YELLOW Urine Appearance TURBID Urine pH 7.5 (5.0-8.0) Ur Specific [place] 1.025 (1.005-1.025) Urine Protein 3+ H (NEG-TRACE) MG/DL Urine Glucose (UA) NEG (NEG) MG/DL Urine Ketones NEG (NEG) MG/DL Urine Blood 2+ H (NEG) Urine Nitrite NEG (NEG) Ur Leukocyte Esterase 2+ H (NEG) Urine RBC 10-14 H (0) /HPF Urine WBC 50-75 H (0-4) /HPF Ur Squamous Epith Cells 1+ /LPF Urine Bacteria 4+ /LPF COVID-19 ([facility]) (Negative) COVID-19 Clin Com 10/20/21 10/20/21 10/20/21 Range/Units 00:14 00:14 01:02 WBC (4.8-10.8) X10*3/uL RBC (4.20-5.50) X10*6/uL Hgb (12.0-16.0) g/dl Hct (37.0-47.0) % MCV (80.0-98.0) fL MCH (27.0-33.0) pg MCHC (31.0-35.0) g/dl RDW (11.0-16.0) % Plt Count (160-400) X10*3/uL MPV (9.4-12.3) fL Immature Gran % (Auto) (0.0-0.4) % Neut % (Auto) (45-73) % Lymph % (Auto) (20-40) % [place] % (Auto) (2-11) % Eos % (Auto) (0-4) % Baso % (Auto) (0-2) % Lymph # (Auto) (1.2-4.9) X10*3/uL [place] # (Auto) (0.1-1.2) X10*3/uL Eos # (Auto) (0.0-0.4) X10*3/uL Baso # (Auto) (0.0-0.2) X10*3/uL Abs Immat Gran (auto) (0.00-0.03) X10*3/uL Absolute Neuts (auto) (2.0-8.3) x10*3/uL Absolute Nucleated RBC (0.0-0.012) X10*3/uL Nucleated RBC % (auto) (0.0-0.2) /100WBC PT 13.1 H (9.9-13.0) SEC INR 1.2 H (0.9-1.1) Sodium (135-145) mmol/L Potassium (3.3-5.1) mmol/L Chloride (96-108) mmol/L Carbon Dioxide (22-29) mmol/L Anion Gap (12-20) BUN (9-16) mg/dL Creatinine (0.5-1.4) mg/dL Estim Creat Clear Calc Estimated GFR Random Glucose (60-115) mg/dL Lactic Acid 3.4 H* (0.5-2.0) mmol/L Calcium (8.4-10.2) mg/dL TSH (0.32-4.0) uIU/mL Urine Color Urine Appearance Urine pH (5.0-8.0) Ur Specific [place] (1.005-1.025) Urine Protein (NEG-TRACE) MG/DL Urine Glucose (UA) (NEG) MG/DL Urine Ketones (NEG) MG/DL Urine Blood (NEG) Urine Nitrite (NEG) Ur Leukocyte Esterase (NEG) Urine RBC (0) /HPF Urine WBC (0-4) /HPF Ur Squamous Epith Cells /LPF Urine Bacteria /LPF COVID-19 ([facility]) Negative (Negative) COVID-19 Clin Com See Note ECG Data Attestation: I personally reviewed and interpreted this ECG as follows: Prior ECG tracings: available for review Interpretation: Sinus tachycardia with PACs, HR-116, no STEMI, AK/QRS/QTC are within normal limits. Critical Care Time Critical Care Time Critical Care Time: Yes Total Critical Care Time: 30 Attestation: I personally attest to this time spent taking care of the patient. Discharge Plan Discharge Clinical Impression: Pneumonia, Sepsis Patient Disposition: Admitted As Inpatient Prescriptions: No Action prochlorperazine maleate 5 mg tablet 5 mg PO TID PRN (Reason: for nausea/vomiting) Qty: 30 0RF benzonatate 200 mg capsule 200 mg PO BID PRN (Reason: for cough) Qty: 30 0RF hydroxyzine pamoate 50 mg capsule 50 mg PO BEDTIME PRN (Reason: for insomnia) Qty: 90 1RF albuterol sulfate 2.5 mg /3 mL (0.083 %) solution for nebulization 2.5 mg inhalation DAILY 0RF lamotrigine 150 mg tablet 150 mg PO BEDTIME 0RF clonazepam 1 mg tablet 1 mg PO BEDTIME 0RF acetaminophen 325 mg Tablet 650 mg PO BID PRN (Reason: Pain (Scale Score 1-3)) 0RF clozapine 100 mg tablet 150 mg PO BEDTIME 0RF Rx Instructions: 250 sevelamer carbonate 800 mg tablet 1,600 mg PO .BIDWM 0RF melatonin 3 mg Tablet 6 mg PO BEDTIME PRN (Reason: Insomnia) 0RF tamoxifen 20 mg tablet 20 mg PO DAILY@1400 0RF hydrocortisone 2.5 % cream 1 appl topical BID PRN (Reason: skin irritation) Qty: 20 0RF levothyroxine [Synthroid] 150 mcg tablet 150 mcg PO DAILY Qty: 60 1RF midodrine 10 mg tablet 10 mg PO TID PRN (Reason: Hypotension) 0RF Rx Instructions: do not give last dose of day after 6PM or within 4 hrs of bedtime Anoro Ellipta 62.5-25 mcg/actuation blister with device 1 inh inhalation Q24H 90 Days Qty: 3 3RF Eliquis 2.5 mg tablet 2.5 mg PO BID 0RF
[2021-10-19] MEDS: 0.9 % Sodium Chloride 500 ML 999 ML IV (23:48)
[2021-10-19] MEDS: Acetaminophen 325 MG TABLET 650 MG PO (23:48)
[2021-10-20] VITALS (12 sets, daily range): BP systolic 89–156; BP diastolic 39–75; PULSE 67–113; RESP 12–20; TEMP 36.2–38.2; O2SAT 94–97; BMI 25.5
[2021-10-20] MEDS: ondansetron HCL 4 MG/2 ML VIAL IVPUSH (00:03)
[2021-10-20] MEDS: cefTRIAXone sodium 1 GM in 0.9 % Sodium Chloride 50 ML IV (00:03)
[2021-10-20 00:35] LABS: INTERNATIONAL NORM RATIO 1.2 (0.9-1.1); Prothrombin Time 13.1 SEC (9.9-13.0)
[2021-10-20 00:40] LABS: Lactic Acid 3.4 mmol/L (0.5-2.0)
[2021-10-20 01:28] LABS: COVID-19 Test Negative (Negative); IDNOW Serial# 55D5AD1C
--- NOTE | 2021-10-20 02:05 | PC.NURSE ---
Pt tolerated abx and fluids NAD Will continue to monitor
[2021-10-20 02:22] LABS: Reflex Lactate? Lactic Acid Added
--- NOTE | 2021-10-20 02:22 | HO.SEPSISX_ITS ---
Sepsis Bolus Exclusion Sepsis Bolus Exclusion This patient met severe sepsis criteria due to the following condition(s):: Hypo tension In my clinical judgement the administration of 30 ml/kg of crystalloid would be detrimental to this patient due to the patient's following conditions:: Concern for fluid overload Other (must be specific):: ESRD on dialysis and increased risk of fluid overload Replace the 30 mls/kg with (*zero amount not acceptable): *Note: One of the crooks must be documented Crystalloids amount given in mls:: 500
[2021-10-20 03:02] LABS: ~Lactic Acid-LAB USE ONLY 1.4 mmol/L (0.5-2.0)
[2021-10-20] MEDS: Acetaminophen 325 MG TABLET 650 MG PO (03:59)
--- NOTE | 2021-10-20 04:11 | PM.IMHP ---
History of Present Illness Date of Service: 10/20/21 Chief Complaint: generalized weakness 76-year-old female with a past medical history of hyperlipidemia, ESRD on hemodialysis, history of breast cancer, hypothyroidism, anxiety, depression, bipolar, history of pulmonary embolism, history of SBO, seizures, COPD presented to the hospital after hemodialysis session with a chief complaint of generalized weakness and cough. Patient reports that she has not been feeling well, has been having cough with no sputum production. Denies any fevers. patient is a poor historian. Most of the history obtained from the patient's Neptali. Per report patient had bladder cancer and has recently had a urological procedure with Dr. Gould in the clinic followed by patient was given nitrofurantoin subsequently patient had multiple episodes of nausea vomiting and diarrhea and unable to give anything down. Because of the symptoms patient has been feeling generally weak and tired. Today she had dialysis and given continued generalized weakness patient was requested to go to the ER for further evaluation. denies any blood in the stool. patient denies any chest pain palpitations lightheadedness or dizziness. Denies any numbness tingling or focal weakness. Denies any urinary symptoms. Denies any nausea vomiting or diarrhea. Review of all other systems is negative except mentioned above ER course: Per ER team patient noted to be tachycardic, febrile, has leukocytosis. Also noted to have lactic acidosis. He blood pressure on the soft side- patient on midodrine at home. Given concern for severe sepsis patient was given findings is of normal saline. Unable to give 30 cc/kg of IV fluids given ESRD and concerns for fluid overload. Patient was given IV antibiotics. CT chest was done which showed findings concerning for pneumonia / aspiration. Admitted to the hospital for further management. FORMERLY [facility], [facility]–1983 Medical History Abdominal pain Acute UTI Arrhythmia Arthritis AV fistula Bipolar 1 disorder Bipolar disorder Bladder cancer Bowel obstruction Breast cancer Bronchopneumonia Cancer Chronic nausea Chronic respiratory failure COPD (chronic obstructive pulmonary disease) COVID-19 vaccine administered Dialysis patient Diarrhea Dysphagia ESRD (end stage renal disease) History of 2019 novel coronavirus disease (COVID-19) Hx of hypotension Hx of radiation therapy Hydronephrosis Hyperkalemia Hypothyroidism Invasive ductal carcinoma of breast Lab test negative for COVID-19 virus Lab test positive for detection of COVID-19 virus Leukocytosis MSSA bacteremia Paroxysmal A-fib Poor appetite Positive FIT (fecal immunochemical test) Pulmonary emboli Renal failure SBO (small bowel obstruction) Seizure SIRS (systemic inflammatory response syndrome) Thyroid disease Ureteral cancer Vomiting Wears dentures Family History Father Dementia Mother Bipolar 1 disorder Brother Heart attack Other Mental health disorder Surgical History History of abdominal surgery History of appendectomy History of back surgery History of bladder surgery (~06/2020) History of cholecystectomy History of esophagogastroduodenoscopy (EGD) History of hand surgery History of lumpectomy of left breast History of lumpectomy of right breast History of tonsillectomy Hx of colonoscopy Hx of foot surgery Social History Household Members: Spouse Housing: House Are you a primary overnight caregiver to a significant other at home: No Do you presently have visiting nurse or other home services: Yes Alcohol intake: never Patient Tobacco Use Status: Former Tobacco user Quit Date: 4 years ago Tobacco use type: Cigarette Cigarette Packs Per Day: 1.5 Cigarettes Per Day: 30.0 Years Smoked: 50 e-Cigarette/Vaping Use: Never Used Second Hand Smoke Exposure: No Advance Directives: Yes Advance Directives on File: Yes Advance Directives Date on File: 01/24/21 service: No Current occupational status: disabled Cognitive needs: Yes (Walker/Wheelchair) Hearing needs: No Vision needs: Yes (readng glasses) Meds Allergies Allergy/AdvReac Type Severity Reaction Status Date / Time adhesive tape Allergy Intermediate Blister Verified 09/27/21 13:53 aspirin Allergy Intermediate RASH Verified 09/27/21 13:53 benztropine Allergy Intermediate RASH Verified 09/27/21 13:53 NSAIDS (Non-Steroidal Allergy Intermediate RASH Verified 09/27/21 13:53 Anti-Inflamma ziprasidone Allergy Intermediate UNKNOWN Verified 09/27/21 13:53 doxycycline AdvReac Vomiting Verified 09/27/21 13:53 oxycodone AdvReac Anaphylaxis Verified 09/27/21 13:53 Home Medications Medication Instructions Recorded Confirmed Last Taken Type clonazepam 1 mg tablet 1 mg PO BEDTIME 05/21/20 10/20/21 07/14/21 History lamotrigine 150 mg tablet 150 mg PO BEDTIME 05/21/20 10/20/21 10/18/21 History acetaminophen 325 mg tablet 650 mg PO BID PRN 05/22/20 10/20/21 03/19/21 History clozapine 100 mg tablet 150 mg PO BEDTIME 01/04/21 10/20/21 10/18/21 History melatonin 3 mg tablet 6 mg PO BEDTIME PRN 07/15/21 10/20/21 Unknown History tamoxifen 20 mg tablet 20 mg PO DAILY@1400 07/15/21 10/20/21 10/19/21 09:00 History apixaban 2.5 mg tablet (Eliquis) 15 mg PO BID 09/03/21 10/20/21 10/19/21 History 0900 albuterol sulfate 2.5 mg INHALATION DAILY 09/21/21 10/20/21 Unknown History sevelamer carbonate 800 mg tablet 1,600 mg PO .BIDWM tab 09/27/21 10/20/21 Unknown History dronedarone 400 mg tablet (Multaq) 1 tab PO BID 10/20/21 10/20/21 Unknown History Physical Exam Vital Signs and Narrative: Vital Signs: Last Vital Signs Temp 100.7 F H 10/20/21 03:16 Pulse 67 10/20/21 03:16 Resp 18 10/20/21 02:17 BP 110/49 L 10/20/21 03:16 Pulse Ox 95 10/20/21 03:16 BMI result Body Mass Index 21.2 Gen: Appears be in no acute distress . Coarse breath sounds HEENT: NCAT, Moist mucosa. Pulmonary: Vesicular breath sounds, fair air entry CVS: Normal S1-S2 Abdomen: BS+, Soft, Nontender Extremities: Warm well perfused Neuro: Alert and awake. Results Labs CBC and Chem 7: 10/20/21 06:13 10/19/21 22:29 Labs: Laboratory Results - last 24 hr 10/19/21 10/19/21 10/19/21 22:29 22:29 23:21 MCV 104.8 H MCH 33.0 MCHC 31.5 RDW 13.8 Plt Count 243 MPV 9.5 Immature Gran % (Auto) 0.3 Neut % (Auto) 86.5 H Lymph % (Auto) 4.1 L [place] % (Auto) 7.3 Eos % (Auto) 1.5 Baso % (Auto) 0.3 Lymph # (Auto) 0.6 L [place] # (Auto) 1.1 Eos # (Auto) 0.2 Baso # (Auto) 0.0 Abs Immat Gran (auto) 0.05 H Absolute Neuts (auto) 12.7 H Absolute Nucleated RBC 0.000 Nucleated RBC % (auto) 0.0 PT INR Anion Gap 19 Estim Creat Clear Calc 15.3 Estimated GFR 18 Random Glucose 181 H Lactic Acid Lactic Acid F/U @ 2Hr Calcium 10.2 TSH 7.69 H Urine Color YELLOW Urine Appearance TURBID Urine pH 7.5 Ur Specific [place] 1.025 Urine Protein 3+ H Urine Glucose (UA) NEG Urine Ketones NEG Urine Blood 2+ H Urine Nitrite NEG Ur Leukocyte Esterase 2+ H Urine RBC 10-14 H Urine WBC 50-75 H Ur Squamous Epith Cells 1+ Urine Bacteria 4+ COVID-19 ([facility]) COVID-19 Clin Com 10/20/21 10/20/21 10/20/21 00:14 00:14 01:02 MCV MCH MCHC RDW Plt Count MPV Immature Gran % (Auto) Neut % (Auto) Lymph % (Auto) [place] % (Auto) Eos % (Auto) Baso % (Auto) Lymph # (Auto) [place] # (Auto) Eos # (Auto) Baso # (Auto) Abs Immat Gran (auto) Absolute Neuts (auto) Absolute Nucleated RBC Nucleated RBC % (auto) PT 13.1 H INR 1.2 H Anion Gap Estim Creat Clear Calc Estimated GFR Random Glucose Lactic Acid 3.4 H* Lactic Acid F/U @ 2Hr Calcium TSH Urine Color Urine Appearance Urine pH Ur Specific [place] Urine Protein Urine Glucose (UA) Urine Ketones Urine Blood Urine Nitrite Ur Leukocyte Esterase Urine RBC Urine WBC Ur Squamous Epith Cells Urine Bacteria COVID-19 ([facility]) Negative COVID-19 Clin Com See Note 10/20/21 02:37 MCV MCH MCHC RDW Plt Count MPV Immature Gran % (Auto) Neut % (Auto) Lymph % (Auto) [place] % (Auto) Eos % (Auto) Baso % (Auto) Lymph # (Auto) [place] # (Auto) Eos # (Auto) Baso # (Auto) Abs Immat Gran (auto) Absolute Neuts (auto) Absolute Nucleated RBC Nucleated RBC % (auto) PT INR Anion Gap Estim Creat Clear Calc Estimated GFR Random Glucose Lactic Acid Lactic Acid F/U @ 2Hr 1.4 Calcium TSH Urine Color Urine Appearance Urine pH Ur Specific [place] Urine Protein Urine Glucose (UA) Urine Ketones Urine Blood Urine Nitrite Ur Leukocyte Esterase Urine RBC Urine WBC Ur Squamous Epith Cells Urine Bacteria COVID-19 ([facility]) COVID-19 Clin Com Imaging Radiologist's Impressions: Impressions Chest X-Ray 10/19/21 22:52 IMPRESSION: Persistent patchy bibasilar opacities, left greater than right and slightly worsened at the left base from prior. At least some of the left basilar opacity is suspected to represent calcification in the setting of chronic renal failure, though superimposed developing acute consolidation may also be present. Abdomen/Pelvis CT 10/20/21 01:20 IMPRESSION: 1. Similar pulmonary findings compared to prior, including upper lobe predominant emphysema and chronic patchy, mostly nodular opacities bilaterally which suggests sequelae of chronic renal failure. Posterior basilar opacity in the right lower lobe may represent atelectasis or potentially sequelae of aspiration. 2. No new acute findings identified in the abdomen/pelvis. Chronic changes including indeterminate left adrenal nodule, multiple bilateral renal cysts and calcifications, and a mildly prominent retroperitoneal lymph nodes. 3. Small amount of venous gas in the left femoral region; question sequelae of attempted line placement. Chest CT 10/20/21 01:20 IMPRESSION: 1. Similar pulmonary findings compared to prior, including upper lobe predominant emphysema and chronic patchy, mostly nodular opacities bilaterally which suggests sequelae of chronic renal failure. Posterior basilar opacity in the right lower lobe may represent atelectasis or potentially sequelae of aspiration. 2. No new acute findings identified in the abdomen/pelvis. Chronic changes including indeterminate left adrenal nodule, multiple bilateral renal cysts and calcifications, and a mildly prominent retroperitoneal lymph nodes. 3. Small amount of venous gas in the left femoral region; question sequelae of attempted line placement. Assessment and Plan Plan 76-year-old female with a past medical history of hyperlipidemia, ESRD on hemodialysis, history of breast cancer, hypothyroidism, anxiety, depression, bipolar, history of pulmonary embolism, history of SBO, seizures, COPD presented to the hospital after hemodialysis session with a chief complaint of generalized weakness and cough. Noted to have findings on the CT scan concerning for pneumonia. Admitted to the hospital for further management. sepsis: Patient noted to be febrile, has lactic acidosis, leukocytosis, tachycardic. Patient was given 500 cc of IV fluids.( Judicious IV fluids given ESRD) pneumonia: Healthcare associated pneumonia/ concern for aspiration. Continue IV vancomycin and Zosyn. Pharmacy consult to renally adjust antibiotics. venous gas: Incident finding on CT : Small amount of venous gas in the left femoral region; question sequelae of attempted line placement. will monitor. Nausea/vomiting/diarrhea: had multiple episodes of diarrhea; denies blood in stool; attributed diarrhea to recent nitrofurantoin use. will send stool studies including c diff. History of COPD: Kortney mares History of ESRD: Nephrology consult. Patient is status post hemodialysis. Continue home sevelamer, Midodrine history of paroxysmal AFib: Continue home Eliquis. Rate controlled. History of anxiety/depression / bipolar disorder: Continue home clonazepam, clozapine, lamotrigine. DVT prophylaxis: Patient on Eliquis Code status: Full code Quality Stroke Does the patient have a stroke diagnosis?: No VTE Prior VTE?: No VTE Risk Level:: Medical - moderate - high VTE Device Contraindication: Treatment Not Indicated VTE Drug Contraindication: N/A - Med Ordered
[2021-10-20] MEDS: vancomycin HCL 1,000 MG in 0.9 % Sodium Chloride 250 ML 270 MG IV (05:46)
[2021-10-20] MEDS: Heparin Sodium,Porcine 5,000 UNIT/ML VIAL 5000 UNIT SUBCUT (05:46)
[2021-10-20 06:26] LABS: MANUAL DIFF FLAG NO
[2021-10-20 06:30] LABS: Basophils Percent Auto 0.2 % (0-2); Eosinophils Absolute Auto 0.1 X10*3/uL (0.0-0.4); Eosinophils Percent Auto 0.5 % (0-4); Hemoglobin 9.1 g/dl (12.0-16.0); Imm Gran Abs Auto 0.06 X10*3/uL (0.00-0.03); Imm Gran Pct Auto 0.6 % (0.0-0.4); Lymphocytes Absolute Auto 0.6 X10*3/uL (1.2-4.9); Lymphocytes Percent Auto 5.4 % (20-40); Mean Corpuscular HGB Conc 31.4 g/dl (31.0-35.0); Mean Corpuscular Hemoglobin 33.1 pg (27.0-33.0); Mean Corpuscular Volume 105.5 fL (80.0-98.0); Mean Platelet Volume 9.5 fL (9.4-12.3); Monocytes Absolute Auto 1.2 X10*3/uL (0.1-1.2); Monocytes Percent Auto 11.3 % (2-11); Neutrophils Absolute Auto 8.9 x10*3/uL (2.0-8.3); Platelet Count 196 X10*3/uL (160-400); Red Blood Count 2.75 X10*6/uL (4.20-5.50); Red Cell Distribution Width 13.7 % (11.0-16.0); White Blood Count 10.9 X10*3/uL (4.8-10.8)
[2021-10-20 06:47] LABS: Anion Gap 13 (12-20); Blood Urea Nitrogen 15 mg/dL (9-16); Calcium 9.7 mg/dL (8.4-10.2); Carbon Dioxide 26 mmol/L (22-29); Chloride 106 mmol/L (96-108); Creatinine Clr Calc Pharmacy 12.1; Estimated Glomerular Filt Rate 13; Glucose Random 115 mg/dL (60-115); Potassium 3.5 mmol/L (3.3-5.1); Sodium 141 mmol/L (135-145)
[2021-10-20] MEDS: Piperacillin Sodium/Tazobactam 2.25 GM in 0.9 % Sodium Chloride 50 ML IV ×3 (07:07→23:00)
--- NOTE | 2021-10-20 07:33 | PHA.MEDREC ---
Pharmacy Consult ? Medication Reconciliation Pharmacy has completed the medication reconciliation.
[2021-10-20] MEDS: Albuterol Sulfate (0.083%) 2.5 MG/3 ML VIAL.NEB INHALE (08:29)
--- NOTE | 2021-10-20 09:31 | PHA.PROG ---
Admission Date/Time: October 20, 2021 04:01 Indication: HAP/concern for aspiration pneumonia Weight in k.431 kg Adjusted body weight in K.21 kg [place] body weight in K.4 kg Obesity Dosing Indication % IBW: 103% Serum Creatinine - Last 168 Hours 10/19/21 10/20/21 22:29 06:13 Creatinine 2.66 H 3.38 H Estimated CrCl and GFR - Last 168 Hours 10/19/21 10/20/21 22:29 06:13 Estim Creat Clear Calc 15.3 12.1 Estimated GFR 18 13 Vancomycin Loading Dose: 1000 mg Current Vancomycin Dosing Regimen: Dose by levels on dialysis days Date and Time for next Vancomycin Level to be drawn: 10/21 @ 0800 Pharmacist Comments on Vancomycin Plan: Patient ESRD on HD MoWeFr Patient receive an 18 mg/kg loading dose, which is adequate for an ESRD patient Will get a random level tomorrow to confirm patient is in theraputic levels. Dose will be post diaylsis only and determined by post-dialysis levels Pharmacy will follow-up daily on dialysis Makayla Obregon PharmD Vancomycin dosing will take advantage of [employer] as a clinical decision support tool that uses Bayesian modeling to calculate individual patient's pharmacokinetic parameters and forecast the patient's drug concentration time course with the target goal AUC 24 range of 400 - 600 mg/L/hr.
[2021-10-20] MEDS: Apixaban 2.5 MG TABLET PO ×2 (09:39→20:17)
[2021-10-20] MEDS: Dronedarone HCl 400 MG TABLET PO ×2 (10:06→20:16)
--- NOTE | 2021-10-20 10:19 | P.CONNP_ITS ---
History of Present Illness Reason for Consult Consult date: 10/20/21 Reason for consult: ESRD Chief Complaint Chief complaint: PNA History of Present Illness Narrative: 76-year-old female with a past medical history of? hyperlipidemia, ESRD on hemodialysis, history of breast cancer, hypothyroidism, anxiety, depression, bipolar, history of pulmonary embolism, history of SBO, seizures, COPD presented to the hospital after hemodialysis session with a chief complaint of generalized weakness and cough. ? Patient reports that she has not been feeling well, has been having cough with no sputum production.? Denies any fevers.? ?patient is a poor historian.? Most of the history obtained from the patient's Neptali.? Per report patient had bladder cancer and has recently had a urological procedure with Dr. Gould in the clinic followed by patient was given nitrofurantoin subsequently patient had multiple episodes of nausea vomiting and diarrhea and unable to give anything down.? Because of the symptoms patient has been feeling generally weak and tired.? Today she had dialysis and given continued generalized weakness patient was requested to go to the ER for further evaluation.? denies any blood in the stool. Review of Systems Review of Systems Pertinent positives and negatives as stated in HPI 10 point review of systems is otherwise negative. FORMERLY [facility], [facility] Past Medical History Medical History Abdominal pain Acute UTI Arrhythmia Arthritis AV fistula Bacteremia due to Klebsiella pneumoniae Bipolar 1 disorder Bipolar disorder Bladder cancer Bowel obstruction Breast cancer Bronchopneumonia C. difficile diarrhea Cancer Chronic nausea Chronic respiratory failure COPD (chronic obstructive pulmonary disease) COVID-19 vaccine administered Dialysis patient Diarrhea Dysphagia ESRD (end stage renal disease) ESRD (end stage renal disease) on dialysis History of 2019 novel coronavirus disease (COVID-19) Hx of hypotension Hx of radiation therapy Hydronephrosis Hyperkalemia Hypothyroidism Invasive ductal carcinoma of breast Lab test negative for COVID-19 virus Lab test positive for detection of COVID-19 virus Leukocytosis MSSA bacteremia Paroxysmal A-fib Poor appetite Positive FIT (fecal immunochemical test) Pulmonary emboli Renal failure SBO (small bowel obstruction) Seizure SIRS (systemic inflammatory response syndrome) Thyroid disease Ureteral cancer Vomiting Wears dentures Family History Family History Father Dementia Mother Bipolar 1 disorder Brother Heart attack Other Mental health disorder Surgical History Surgical History History of abdominal surgery History of appendectomy History of back surgery History of bladder surgery (~06/2020) History of cholecystectomy History of esophagogastroduodenoscopy (EGD) History of hand surgery History of lumpectomy of left breast History of lumpectomy of right breast History of tonsillectomy Hx of colonoscopy Hx of foot surgery Social History Social History Household Members: Unknown / Unable to assess Housing: House Are you a primary housekeeper child care to a significant other at home: No Unable to assess alcohol history related to: Unable to respond Alcohol intake: never Patient Tobacco Use Status: Former Tobacco user Quit Date: 4 years ago Tobacco use type: Cigarette Cigarette Packs Per Day: 1.5 Cigarettes Per Day: 30.0 Years Smoked: 50 e-Cigarette/Vaping Use: Never Used Second Hand Smoke Exposure: No Currently Displaying Signs/Symptoms of Drug Intoxication Withdrawal: No Advance Directives: Yes Advance Directives on File: Yes Advance Directives Date on File: 01/24/21 Healthcare Proxy: Yes (pt's ) Guardian: No Do you have thoughts of harming others: None Do you have a plan to hurt others: No Plan Recently lost weight without trying: Unsure Nutrition Risks: No Nutritional Risk service: No Current occupational status: retired and disabled Sexual orientation: Straight/Heterosexual Cognitive needs: Yes (Walker/Wheelchair) Hearing needs: No Vision needs: Yes (readng glasses) Meds Allergies Allergy/AdvReac Type Severity Reaction Status Date / Time oxycodone Allergy Severe Anaphylaxis Verified 12/04/21 11:58 adhesive tape Allergy Intermediate Blister Verified 11/13/21 21:04 aspirin Allergy Intermediate RASH Verified 11/13/21 21:04 benztropine Allergy Intermediate RASH Verified 11/13/21 21:04 NSAIDS (Non-Steroidal Allergy Intermediate RASH Verified 11/13/21 21:04 Anti-Inflamma ziprasidone Allergy Intermediate UNKNOWN Verified 11/13/21 21:04 doxycycline AdvReac Vomiting Verified 11/13/21 21:04 Active Medications: Current Medications Acetaminophen (Acetaminophen 325 Mg Tablet) 650 mg PO Q6H PRN PRN Reason: Pain, Mild (Pain Scale 1-3) Albuterol Sulfate (Albuterol Sulfate (0.083%) 2.5 Mg/3 Ml Vial.Neb) 2.5 mg INHALE DAILY [facility] Last Admin: 10/20/21 08:29 Dose: 2.5 mg Documented by: Albuterol/Ipratropium (Albuterol/Iprat 2.5/0.5mg 3 Ml Ampul.Neb) 3 ml INHALE RQ4H PRN PRN Reason: Shortness of Breath/Wheezing Apixaban (Apixaban 2.5 Mg Tablet) 2.5 mg PO BID [facility] Last Admin: 10/20/21 09:39 Dose: 2.5 mg Documented by: Clonazepam (Clonazepam 1 Mg Tablet) 1 mg PO BEDTIME [facility] Clozapine (Clozapine 25 Mg Tablet) 150 mg PO BEDTIME [facility] Dronedarone (Dronedarone Hcl 400 Mg Tablet) 400 mg PO BID [facility] Last Admin: 10/20/21 10:06 Dose: 400 mg Documented by: Hydrocortisone (Hydrocortisone 1 % Cream 28.35 Gm Tube) 1 appl TOPICAL BID PRN PRN Reason: skin irritation Hydroxyzine HCl (Hydroxyzine Hcl 50 Mg Tablet) 50 mg PO BEDTIME PRN PRN Reason: for insomnia Piperacillin Sod/Tazobactam (Sod 2.25 gm/ Sodium Chloride) 50 mls @ 100 mls/hr IV Q8H [facility] Last Infusion: 10/20/21 07:48 Dose: Infused Documented by: Vancomycin HCl 500 mg/ Sodium (Chloride) 110 mls @ 110 mls/hr IV MOWEFR@1800 [facility] Lamotrigine (Lamotrigine 25 Mg Tablet) 150 mg PO BEDTIME [facility] Levothyroxine Sodium (Levothyroxine Sodium 150 Mcg Tablet) 150 mcg PO DAILY@0600 [facility] Melatonin (Melatonin 3 Mg Tablet) 6 mg PO BEDTIME PRN PRN Reason: Insomnia Melatonin (Melatonin 3 Mg Tablet) 6 mg PO BEDTIME PRN PRN Reason: Insomnia Non-Formulary Medication (Umeclidinium-Vilanterol [Anoro Ellipta]) 1 inhalation INHALE Q24H [facility] Last Admin: 10/20/21 06:51 Dose: 1 inhalation Documented by: Pharmacy Consult (Consult Rx Vancomycin Dosing) 1 each MISCELLANE DAILY PRN PRN Reason: Consult order Senna (Sennosides 8.6 Mg Tablet) 17.2 mg PO BEDTIME PRN PRN Reason: Constipation Sevelamer Carbonate (Sevelamer Carbonate Tablet 800 Mg Tablet) 1,600 mg PO BIDWM [facility] Sodium Chloride (0.9 % Sodium Chloride Flush 3 Ml Syringe) 3 ml IVFLUSH QSHIFT [facility] Last Admin: 10/20/21 07:48 Dose: Not Given Documented by: Tamoxifen Citrate (Tamoxifen Citrate 10 Mg Tablet) 20 mg PO DAILY@1400 [facility] Home Medications Medication Instructions Recorded Confirmed Last Taken Type clonazepam 1 mg tablet 1 mg PO BEDTIME 05/21/20 11/30/21 07/14/21 History lamotrigine 150 mg tablet 150 mg PO BEDTIME 05/21/20 11/30/21 10/18/21 History acetaminophen 325 mg tablet 650 mg PO BID PRN 05/22/20 11/30/21 03/19/21 History tamoxifen 20 mg tablet 20 mg PO DAILY@1400 07/15/21 11/30/21 10/19/21 09:00 History apixaban 2.5 mg tablet (Eliquis) 2.5 mg PO BID 09/03/21 11/30/21 11/30/21 History sevelamer carbonate 800 mg tablet 1,600 mg PO TIDWM tab 09/27/21 11/30/21 11/30/21 History dronedarone 400 mg tablet (Multaq) 1 tab PO BID 10/20/21 11/30/21 11/30/21 History albuterol sulfate 90 mcg/actuation 2 puff INHALATION Q4-6H PRN 11/01/21 11/30/21 Unknown History aerosol inhaler clozapine 100 mg tablet 200 mg PO BEDTIME 11/01/21 11/30/21 Unknown History levothyroxine 150 mcg tablet 1 tab PO DAILY 11/01/21 11/30/21 11/30/21 History melatonin 3 mg tablet 6 mg PO DAILY PRN 11/01/21 11/30/21 Unknown History umeclidinium 62.5 mcg-vilanterol 1 puff INHALATION DAILY 11/01/21 11/30/21 Unknown History 25 mcg/actuation powdr for inhalation (Anoro Ellipta) clozapine 25 mg tablet 2 tab PO BID 11/30/21 11/30/21 11/30/21 History olanzapine 5 mg tablet 1 tab PO BEDTIME 11/30/21 11/30/21 11/30/21 History Physical Exam Vital Signs: Last Vital Signs Temp 98.5 F 10/20/21 07:31 Pulse 99 10/20/21 08:30 Resp 18 10/20/21 08:30 BP 89/47 L 10/20/21 07:31 Pulse Ox 95 10/20/21 07:31 BMI result Body Mass Index 21.2 Const General: no acute distress and alert Eyes General: appearance normal, both eyes and all related structures Neck Neck: Yes supple Resp Auscultation: clear to auscultation bilaterally Cardio Jugular venous distension: no JVD Heart sounds: no rubs GI Auscultation: normal bowel sounds Extrem General: No cyanosis and No edema Results Lab Results Result Diagrams: 10/27/21 06:41 10/25/21 06:07 Lab results: Chemistry 10/19/21 10/20/21 22:29 06:13 Sodium 136 141 Potassium 3.6 D 3.5 Carbon Dioxide 21 L 26 BUN 11 D 15 Creatinine 2.66 H 3.38 H Calcium 10.2 9.7 Hematology 10/19/21 10/20/21 22:29 06:13 WBC 14.6 H 10.9 H Hgb 11.1 L 9.1 L Plt Count 243 196 Urinalysis 10/19/21 23:21 Urine Color YELLOW Urine Appearance TURBID Urine pH 7.5 Ur Specific [place] 1.025 Urine Protein 3+ H Urine Glucose (UA) NEG Urine Ketones NEG Urine Blood 2+ H Urine Nitrite NEG Ur Leukocyte Esterase 2+ H Urine RBC 10-14 H Urine WBC 50-75 H Ur Squamous Epith Cells 1+ Assessment and Plan (1) ESRD needing dialysis: Status: Acute Plan 76-year-old female with a past medical history of? hyperlipidemia, ESRD on hemodialysis, history of breast cancer, hypothyroidism, anxiety, depression, bipolar, history of pulmonary embolism, history of SBO, seizures, COPD presented to the hospital after hemodialysis session with a chief complaint of generalized weakness and cough.? Noted to have findings on the CT scan concerning for pneumonia.? Admitted to the hospital for further management. ESRD Well dialyzed No s/s of uremia Will arrange for HD on Friday Anemia- Resume Epogen per protocol Procedures Date of Service Date of Service: 10/20/21
--- NOTE | 2021-10-20 11:35 | PC.NURSE ---
PT COMFORTABLE. HAD DIARRHEA X 1. VSS. GENERALIZED WEAKNESS NOTED.
[2021-10-20 11:58] LABS: CDiff Gene PCR POSITIVE (Negative)
[2021-10-20 12:29] LABS: Leukocytes Stool Qualitative NEGATIVE (NEGATIVE)
--- NOTE | 2021-10-20 13:32 | MHC.CM.PN ---
Met with patient in regards to discharge planning. Patient lives with her , daughter, and son in law. Patient uses cane/walker for mobility. Patient denies having any services prior to coming to the hospital. Patient's PCP retired. She has a mid level she sees at [facility] in [place]. Patient does not remember the provider's name. imaging assistant has been asked to verify provider's name. Copy of HCP obtained from [facility]. Patient received 3 Pfizer vaccines. IMM explained. Patient is not able to sign because she is legally blind. She can't see anything out of her right eye. She reports quickly losing vision in her left eye. IMM left beside. Patient's sister, Carla, will transport patient home when medically stable. Continue to monitor for d/c needs.
--- NOTE | 2021-10-20 14:17 | MHC.CM.PN ---
Attempted to meet with patient in regards to discharge planning. Spoke with patient's , Neptali, via telephone at [phone]. Patient lives with Neptali, uses a walker/wheelchair for mobility and goes to HD at [facility] in [place]. Patient will refuse additional home services. PCP verified. HCP verified to be on file. Patient received 2 Moderna vaccines at dialysis. IMM explained and left at patient's bedside. Neptali will transport patient home when medically stable. Continue to monitor for d/c needs.
[2021-10-20] MEDS: Tamoxifen Citrate 10 MG TABLET 20 MG PO (14:30)
[2021-10-20] MEDS: Sevelamer Carbonate Tablet 800 MG TABLET 1600 MG PO (17:35)
[2021-10-20] MEDS: vancomycin HCL 125 MG CAPSULE PO ×2 (18:17→23:08)
[2021-10-20] MEDS: lamoTRIgine 25 MG TABLET 150 MG PO (20:16)
[2021-10-20] MEDS: clonazePAM 1 MG TABLET PO (20:16)
[2021-10-20] MEDS: Melatonin 3 MG TABLET 6 MG PO (20:16)
[2021-10-20] MEDS: cloZAPine 25 MG TABLET 150 MG PO (20:17)
[2021-10-20] MEDS: 0.9 % Sodium Chloride Flush 3 ML SYRINGE IVFLUSH (20:28)
[2021-10-21 00:25] LABS: CDIFF Internal ctrl Dots and bkg OK (V); CDiff Toxin Negative (Negative)
[2021-10-21 03:29] VITALS: BP 95/56; PULSE 78; RESP 18; TEMP 36.7; O2SAT 96
[2021-10-21] MEDS: Piperacillin Sodium/Tazobactam 2.25 GM in 0.9 % Sodium Chloride 50 ML IV ×3 (05:07→21:00)
[2021-10-21] MEDS: Levothyroxine Sodium 150 MCG TABLET PO (05:46)
[2021-10-21] MEDS: vancomycin HCL 125 MG CAPSULE PO (05:46)
[2021-10-21 05:52] VITALS: BMI 25.5
[2021-10-21 08:00] VITALS: BP 91/45; PULSE 73; RESP 18; TEMP 36.6; O2SAT 94
[2021-10-21 08:31] LABS: Hematocrit 25.6 % (37.0-47.0); Hemoglobin 7.9 g/dl (12.0-16.0); Mean Corpuscular HGB Conc 30.9 g/dl (31.0-35.0); Mean Corpuscular Hemoglobin 32.9 pg (27.0-33.0); Mean Corpuscular Volume 106.7 fL (80.0-98.0); Platelet Count 189 X10*3/uL (160-400); Red Cell Distribution Width 13.9 % (11.0-16.0); White Blood Count 9.6 X10*3/uL (4.8-10.8)
--- NOTE | 2021-10-21 08:52 | HO.PM.IMPN ---
Subjective Subjective Date of Service: 10/21/21 Interval History: cc: diarrea, weakness interval history: still feeling unwell Cardiovascular Cardiovascular: Reports no additional cardiovascular complaints Respiratory Respiratory: Reports no additional respiratory complaints Physical Exam Vital Signs: Vital Signs: Last Vital Signs Temp 97.8 F 10/21/21 08:00 Pulse 73 10/21/21 08:00 Resp 18 10/21/21 08:00 BP 91/45 L 10/21/21 08:00 Pulse Ox 94 10/21/21 08:00 BMI result Body Mass Index 25.5 General: lethargic oriented times 3, ill appearing Resp: CTA bilateral, no accessory muscles used CVS: S1,S2,RRR GI: soft, non tender, non distended Neuro: motor grossly intact, lethargic Psych: appropriate affect, appropriate insight Objective Data Active Medications Acetaminophen (Acetaminophen 325 Mg Tablet) 650 mg PO Q6H PRN PRN Reason: Pain, Mild (Pain Scale 1-3) Albuterol Sulfate (Albuterol Sulfate (0.083%) 2.5 Mg/3 Ml Vial.Neb) 2.5 mg INHALE DAILY [facility] Last Admin: 10/21/21 07:41 Dose: Not Given Documented by: CONNIE Non-Admin Reason: Patient Refused Albuterol/Ipratropium (Albuterol/Iprat 2.5/0.5mg 3 Ml Ampul.Neb) 3 ml INHALE RQ4H PRN PRN Reason: Shortness of Breath/Wheezing Apixaban (Apixaban 2.5 Mg Tablet) 2.5 mg PO BID [facility] Last Admin: 10/20/21 20:17 Dose: 2.5 mg Documented by: ALESSANDRA Clonazepam (Clonazepam 1 Mg Tablet) 1 mg PO BEDTIME [facility] Last Admin: 10/20/21 20:16 Dose: 1 mg Documented by: ALESSANDRA Clozapine (Clozapine 25 Mg Tablet) 150 mg PO BEDTIME [facility] Last Admin: 10/20/21 20:17 Dose: 150 mg Documented by: ALESSANDRA Dronedarone (Dronedarone Hcl 400 Mg Tablet) 400 mg PO BID [facility] Last Admin: 10/20/21 20:16 Dose: 400 mg Documented by: ALESSANDRA Epoetin Tim (Epoetin Tim 10,000 Unit/Ml Vial) 10,000 unit SUBCUT ONCE ONE Stop: 10/22/21 08:01 Hydrocortisone (Hydrocortisone 1 % Cream 28.35 Gm Tube) 1 appl TOPICAL BID PRN PRN Reason: skin irritation Hydroxyzine HCl (Hydroxyzine Hcl 50 Mg Tablet) 50 mg PO BEDTIME PRN PRN Reason: for insomnia Piperacillin Sod/Tazobactam (Sod 2.25 gm/ Sodium Chloride) 50 mls @ 100 mls/hr IV Q8H [facility] Last Infusion: 10/21/21 05:49 Dose: 0 mls/hr Documented by: ALESSANDRA Vancomycin HCl 500 mg/ Sodium (Chloride) 110 mls @ 110 mls/hr IV MOWEFR@1800 [facility] Lamotrigine (Lamotrigine 25 Mg Tablet) 150 mg PO BEDTIME [facility] Last Admin: 10/20/21 20:16 Dose: 150 mg Documented by: ALESSANDRA Levothyroxine Sodium (Levothyroxine Sodium 150 Mcg Tablet) 150 mcg PO DAILY@0600 [facility] Last Admin: 10/21/21 05:46 Dose: 150 mcg Documented by: ALESSANDRA Melatonin (Melatonin 3 Mg Tablet) 6 mg PO BEDTIME PRN PRN Reason: Insomnia Last Admin: 10/20/21 20:16 Dose: 6 mg Documented by: ALESSANDRA Melatonin (Melatonin 3 Mg Tablet) 6 mg PO BEDTIME PRN PRN Reason: Insomnia Non-Formulary Medication (Umeclidinium-Vilanterol [Anoro Ellipta]) 1 inhalation INHALE Q24H [facility] Last Admin: 10/20/21 06:51 Dose: 1 inhalation Documented by: VIKASH Pharmacy Consult (Consult Rx Vancomycin Dosing) 1 each MISCELLANE DAILY PRN PRN Reason: Consult order Senna (Sennosides 8.6 Mg Tablet) 17.2 mg PO BEDTIME PRN PRN Reason: Constipation Sevelamer Carbonate (Sevelamer Carbonate Tablet 800 Mg Tablet) 1,600 mg PO BIDWM [facility] Last Admin: 10/20/21 17:35 Dose: 1,600 mg Documented by: JUSTINA Sodium Chloride (0.9 % Sodium Chloride Flush 3 Ml Syringe) 3 ml IVFLUSH QSHIFT [facility] Last Admin: 10/20/21 20:28 Dose: 3 ml Documented by: ALESSANDRA Tamoxifen Citrate (Tamoxifen Citrate 10 Mg Tablet) 20 mg PO DAILY@1400 [facility] Last Admin: 10/20/21 14:30 Dose: 20 mg Documented by: JUSTINA Labs CBC & Chem 7: 10/21/21 08:11 10/20/21 06:13 Labs: Laboratory Results - last 24 hr 10/20/21 10/20/21 10/21/21 10:45 10:45 08:11 MCV MCH MCHC RDW Plt Count MPV Absolute Nucleated RBC Nucleated RBC % (auto) Estim Creat Clear Calc Cancelled Estimated GFR Cancelled Stool Leukocytes, Qual NEGATIVE C. difficile Tox B Gene POSITIVE A* C. difficile Toxin A&B Negative C. difficile Interpret SEE NOTE 10/21/21 08:11 MCV 106.7 H MCH 32.9 MCHC 30.9 L RDW 13.9 Plt Count 189 MPV 10.0 Absolute Nucleated RBC 0.000 Nucleated RBC % (auto) 0.0 Estim Creat Clear Calc Estimated GFR Stool Leukocytes, Qual C. difficile Tox B Gene C. difficile Toxin A&B C. difficile Interpret Microbiology Microbiology Results: Microbiology 10/19/21 22:28 Blood Culture - Preliminary Blood - Venous Gram negative radha 10/19/21 22:28 Blood Culture - Preliminary Blood - Venous No growth after 24 hours. Assessment and Plan (1) Sepsis: Status: Acute Plan 76F presented with weakness, cough, diarrhea sepsis present on admission due to UTI, pneumonia with GNR bacteremia dc vanco IV continue zosyn follow up cultures diarrhea cdif pcr positive, toxin negative - colonized will dc vanc po imodium prn ESRD HD rencela paroxysmal atrial fibrillation multaq eliquis hypothyroid synthroid mood disorder lamictal clozaril breast cancer tamoxifen chronic hypoxic respiratory failure due to copd on 2L prn home o2, anoro ellipta dvt prophylaxis - eliquis full code reason for continued hospitalization: continue close monitoring and iv antibiotics, gram stain positive awaiting cultures to direct oral therapy, high risk for decompensation to severe sepsis due to comorbitidities of ESRD, copd Quality Stroke Does the patient have a stroke diagnosis?: No VTE Prior VTE?: No VTE Risk Level:: Medical - moderate - high VTE Device Contraindication: Treatment Not Indicated VTE Drug Contraindication: N/A - Med Ordered
[2021-10-21 08:54] LABS: Vancomycin Random 12.3 mcg/mL (15-20)
[2021-10-21] MEDS: Sevelamer Carbonate Tablet 800 MG TABLET 1600 MG PO ×2 (09:14→16:17)
[2021-10-21] MEDS: 0.9 % Sodium Chloride Flush 3 ML SYRINGE IVFLUSH ×2 (09:14→21:02)
[2021-10-21] MEDS: Apixaban 2.5 MG TABLET PO ×2 (09:15→21:01)
[2021-10-21] MEDS: Dronedarone HCl 400 MG TABLET PO ×2 (09:15→21:00)
[2021-10-21 09:16] LABS: Anion Gap 16 (12-20); Blood Urea Nitrogen 31 mg/dL (9-16); Calcium 9.6 mg/dL (8.4-10.2); Carbon Dioxide 23 mmol/L (22-29); Chloride 102 mmol/L (96-108); Estimated Glomerular Filt Rate 7; Glucose Fasting 87 mg/dL (60-99); Potassium 3.8 mmol/L (3.3-5.1); Sodium 137 mmol/L (135-145)
--- NOTE | 2021-10-21 10:02 | P.PNNP_ITS ---
Subjective Subjective Date of Service: 10/21/21 Interval history: cc: diarrea, weakness interval history: still feeling unwell Doing better Physical Exam Vital Signs: Vital Signs: Last Vital Signs Temp 97.8 F 10/21/21 08:00 Pulse 73 10/21/21 08:00 Resp 18 10/21/21 08:00 BP 91/45 L 10/21/21 08:00 Pulse Ox 94 10/21/21 08:00 BMI result Body Mass Index 25.5 Const: General: no acute distress and alert Eyes: General: appearance normal, both eyes and all related structures Neck: Neck: Yes supple Resp: Auscultation: clear to auscultation bilaterally Cardio: Jugular venous distension: no JVD Heart sounds: no rubs GI: Auscultation: normal bowel sounds Extrem: General: No cyanosis and No edema Objective Data Labs CBC & Chem 7: 10/21/21 08:11 10/21/21 08:11 Labs: Laboratory Results - last 24 hr 10/20/21 10/20/21 10/21/21 10:45 10:45 08:11 WBC RBC Hgb Hct MCV MCH MCHC RDW Plt Count MPV Absolute Nucleated RBC Nucleated RBC % (auto) Sodium Potassium Chloride Carbon Dioxide Anion Gap BUN Creatinine Cancelled Estim Creat Clear Calc Cancelled Estimated GFR Cancelled Fasting Glucose Calcium Stool Leukocytes, Qual NEGATIVE Random Vancomycin C. difficile Tox B Gene POSITIVE A* C. difficile Toxin A&B Negative C. difficile Interpret SEE NOTE 10/21/21 10/21/21 10/21/21 08:11 08:11 08:11 WBC 9.6 RBC 2.40 L Hgb 7.9 L Hct 25.6 L MCV 106.7 H MCH 32.9 MCHC 30.9 L RDW 13.9 Plt Count 189 MPV 10.0 Absolute Nucleated RBC 0.000 Nucleated RBC % (auto) 0.0 Sodium 137 Potassium 3.8 Chloride 102 Carbon Dioxide 23 Anion Gap 16 BUN 31 H D Creatinine 5.59 H* Estim Creat Clear Calc 8.0 Estimated GFR 7 Fasting Glucose 87 Calcium 9.6 Stool Leukocytes, Qual Random Vancomycin 12.3 L C. difficile Tox B Gene C. difficile Toxin A&B C. difficile Interpret Microbiology Microbiology Results: Microbiology 10/19/21 22:28 Blood - Venous Blood Culture - Preliminary Gram negative radha 10/19/21 22:28 Blood - Venous Blood Culture - Preliminary No growth after 24 hours. Procedures Date of Service Date of Service: 10/21/21 Assessment & Plan Assessment and plan (1) Anemia, chronic renal failure: Status: Acute Plan 76-year-old female with a past medical history of? hyperlipidemia, ESRD on hemodialysis, history of breast cancer, hypothyroidism, anxiety, depression, bipolar, history of pulmonary embolism, history of SBO, seizures, COPD presented to the hospital after hemodialysis session with a chief complaint of generalized weakness and cough.? Noted to have findings on the CT scan concerning for p neumonia.? Admitted to the hospital for further management. Sepsis Work up in progress On Zosyn ESRD Well dialyzed No s/s of uremia Will arrange for HD on Friday Anemia- Resume Epogen per protocol Time Spent With Patient Time: Total time spent is greater than 50% in coordination of care (as documented) at patient's floor/unit and/or counseling patient: Time with patient: 15 - 24 minutes Progress Note: Quality Stroke Does the patient have a stroke diagnosis?: No
[2021-10-21 11:39] VITALS: BP 85/45; PULSE 78; RESP 18; TEMP 36.6; O2SAT 97
[2021-10-21] MEDS: Acetaminophen 325 MG TABLET 650 MG PO (12:36)
[2021-10-21] MEDS: Tamoxifen Citrate 10 MG TABLET 20 MG PO (13:57)
[2021-10-21] MEDS: Loperamide HCl 2 MG CAPSULE PO (13:57)
[2021-10-21 15:17] VITALS: BP 82/46; PULSE 72; RESP 14; TEMP 36.2; O2SAT 96
[2021-10-21] MEDS: 0.9 % Sodium Chloride 500 ML IV (16:17)
[2021-10-21] MEDS: Midodrine HCl 5 MG TABLET PO (16:17)
[2021-10-21 19:13] VITALS: BP 105/41; PULSE 77; RESP 16; TEMP 37.2; O2SAT 91
[2021-10-21] MEDS: clonazePAM 1 MG TABLET PO (21:01)
[2021-10-21] MEDS: Melatonin 3 MG TABLET 6 MG PO ×2 (21:01)
[2021-10-21] MEDS: lamoTRIgine 25 MG TABLET 150 MG PO (21:01)
[2021-10-21] MEDS: cloZAPine 25 MG TABLET 150 MG PO (21:01)
[2021-10-21 23:50] VITALS: BP 109/52; PULSE 87; RESP 18; TEMP 38.1; O2SAT 91
[2021-10-22] VITALS (7 sets, daily range): BP systolic 94–112; BP diastolic 44–54; PULSE 73–92; RESP 14–22; TEMP 36–37.9; O2SAT 94–98; BMI 23.3
[2021-10-22] MEDS: Piperacillin Sodium/Tazobactam 2.25 GM in 0.9 % Sodium Chloride 50 ML IV (05:32)
[2021-10-22] MEDS: Levothyroxine Sodium 150 MCG TABLET PO (05:33)
[2021-10-22 06:43] LABS: Hemoglobin 7.9 g/dl (12.0-16.0); Mean Corpuscular HGB Conc 31.6 g/dl (31.0-35.0); Mean Corpuscular Hemoglobin 32.6 pg (27.0-33.0); Mean Corpuscular Volume 103.3 fL (80.0-98.0); Mean Platelet Volume 10.2 fL (9.4-12.3); Platelet Count 193 X10*3/uL (160-400); Red Blood Count 2.42 X10*6/uL (4.20-5.50); Red Cell Distribution Width 13.5 % (11.0-16.0); White Blood Count 9.6 X10*3/uL (4.8-10.8)
[2021-10-22 06:50] LABS: Anion Gap 19 (12-20); Blood Urea Nitrogen 46 mg/dL (9-16); Calcium 9.5 mg/dL (8.4-10.2); Carbon Dioxide 22 mmol/L (22-29); Chloride 102 mmol/L (96-108); Creatinine Clr Calc Pharmacy 5.7; Estimated Glomerular Filt Rate 6; Glucose Fasting 89 mg/dL (60-99); Potassium 3.7 mmol/L (3.3-5.1); Sodium 139 mmol/L (135-145)
[2021-10-22] MEDS: Albuterol Sulfate (0.083%) 2.5 MG/3 ML VIAL.NEB INHALE (07:31)
[2021-10-22] MEDS: Sevelamer Carbonate Tablet 800 MG TABLET 1600 MG PO ×2 (08:02→17:05)
[2021-10-22] MEDS: Apixaban 2.5 MG TABLET PO ×2 (08:02→20:09)
[2021-10-22] MEDS: Dronedarone HCl 400 MG TABLET PO ×2 (08:03→20:09)
[2021-10-22] MEDS: Midodrine HCl 5 MG TABLET PO ×3 (08:03→17:05)
[2021-10-22] MEDS: 0.9 % Sodium Chloride Flush 3 ML SYRINGE IVFLUSH ×3 (08:03→20:17)
--- NOTE | 2021-10-22 08:03 | P.PNIM_ITS ---
Subjective Subjective Date of Service: 10/22/21 Interval History: cc: weakness interval history: tired, diarrhea Cardiovascular Cardiovascular: Reports no additional cardiovascular complaints Respiratory Respiratory: Reports no additional respiratory complaints Physical Exam Vital Signs: Vital Signs: Last Vital Signs Temp 97.6 F 10/22/21 07:22 Pulse 92 10/22/21 07:33 Resp 18 10/22/21 07:33 BP 100/50 L 10/22/21 07:22 Pulse Ox 96 10/22/21 07:22 BMI result Body Mass Index 23.3 General: lethargic oriented times 3, ill appearing Resp:? CTA bilateral, no accessory muscles used CVS: S1,S2,RRR GI: soft, non tender, non distended Neuro:? motor grossly intact, lethargic Psych: appropriate affect, appropriate insight? Objective Data Active Medications Acetaminophen (Acetaminophen 325 Mg Tablet) 650 mg PO Q6H PRN PRN Reason: Pain, Mild (Pain Scale 1-3) Last Admin: 10/21/21 12:36 Dose: 650 mg Documented by: JARON Albuterol Sulfate (Albuterol Sulfate (0.083%) 2.5 Mg/3 Ml Vial.Neb) 2.5 mg INHALE DAILY [facility] Last Admin: 10/22/21 07:31 Dose: 2.5 mg Documented by: CONNIE Albuterol/Ipratropium (Albuterol/Iprat 2.5/0.5mg 3 Ml Ampul.Neb) 3 ml INHALE RQ4H PRN PRN Reason: Shortness of Breath/Wheezing Apixaban (Apixaban 2.5 Mg Tablet) 2.5 mg PO BID [facility] Last Admin: 10/21/21 21:01 Dose: 2.5 mg Documented by: DARYL Clonazepam (Clonazepam 1 Mg Tablet) 1 mg PO BEDTIME [facility] Last Admin: 10/21/21 21:01 Dose: 1 mg Documented by: DARYL Clozapine (Clozapine 25 Mg Tablet) 150 mg PO BEDTIME [facility] Last Admin: 10/21/21 21:01 Dose: 150 mg Documented by: DARYL Dronedarone (Dronedarone Hcl 400 Mg Tablet) 400 mg PO BID [facility] Last Admin: 10/21/21 21:00 Dose: 400 mg Documented by: DARYL Epoetin Tim (Epoetin Tim 20,000 Unit/Ml Vial) 20,000 unit SUBCUT DIALYSIS X3 MOWEFR [facility] Hydrocortisone (Hydrocortisone 1 % Cream 28.35 Gm Tube) 1 appl TOPICAL BID PRN PRN Reason: skin irritation Hydroxyzine HCl (Hydroxyzine Hcl 50 Mg Tablet) 50 mg PO BEDTIME PRN PRN Reason: for insomnia Piperacillin Sod/Tazobactam (Sod 2.25 gm/ Sodium Chloride) 50 mls @ 100 mls/hr IV Q8H [facility] Last Infusion: 10/22/21 06:12 Dose: 0 mls/hr Documented by: ALEXANDRE Lamotrigine (Lamotrigine 25 Mg Tablet) 150 mg PO BEDTIME [facility] Last Admin: 10/21/21 21:01 Dose: 150 mg Documented by: DARYL Levothyroxine Sodium (Levothyroxine Sodium 150 Mcg Tablet) 150 mcg PO DAILY@0600 [facility] Last Admin: 10/22/21 05:33 Dose: 150 mcg Documented by: ALEXANDRE Loperamide HCl (Loperamide Hcl 2 Mg Capsule) 2 mg PO Q6H PRN PRN Reason: diarrhea Last Admin: 10/21/21 13:57 Dose: 2 mg Documented by: JARON Melatonin (Melatonin 3 Mg Tablet) 6 mg PO BEDTIME PRN PRN Reason: Insomnia Last Admin: 10/21/21 21:01 Dose: 6 mg Documented by: DARYL Melatonin (Melatonin 3 Mg Tablet) 6 mg PO BEDTIME PRN PRN Reason: Insomnia Last Admin: 10/21/21 21:01 Dose: 6 mg Documented by: DARYL Midodrine (Midodrine Hcl 5 Mg Tablet) 5 mg PO TIDAC [facility] Last Admin: 10/21/21 16:17 Dose: 5 mg Documented by: JARON Non-Formulary Medication (Umeclidinium-Vilanterol [Anoro Ellipta]) 1 inhalation INHALE Q24H [facility] Last Admin: 10/20/21 06:51 Dose: 1 inhalation Documented by: VIKASH Pharmacy Consult (Consult Rx Vancomycin Dosing) 1 each MISCELLANE DAILY PRN PRN Reason: Consult order Senna (Sennosides 8.6 Mg Tablet) 17.2 mg PO BEDTIME PRN PRN Reason: Constipation Sevelamer Carbonate (Sevelamer Carbonate Tablet 800 Mg Tablet) 1,600 mg PO BIDWM [facility] Last Admin: 10/21/21 16:17 Dose: 1,600 mg Documented by: JARON Sodium Chloride (0.9 % Sodium Chloride Flush 3 Ml Syringe) 3 ml IVFLUSH QSHIFT [facility] Last Admin: 10/21/21 21:02 Dose: 3 ml Documented by: DARYL Tamoxifen Citrate (Tamoxifen Citrate 10 Mg Tablet) 20 mg PO DAILY@1400 [facility] Last Admin: 10/21/21 13:57 Dose: 20 mg Documented by: JARON Labs CBC & Chem 7: 10/22/21 06:06 10/22/21 06:06 Labs: Laboratory Results - last 24 hr 10/21/21 10/21/21 10/21/21 08:11 08:11 08:11 MCV 106.7 H MCH 32.9 MCHC 30.9 L RDW 13.9 Plt Count 189 MPV 10.0 Absolute Nucleated RBC 0.000 Nucleated RBC % (auto) 0.0 Anion Gap Estim Creat Clear Calc Cancelled Estimated GFR Cancelled Fasting Glucose Calcium Random Vancomycin 12.3 L 10/21/21 10/22/21 10/22/21 08:11 06:06 06:06 MCV 103.3 H MCH 32.6 MCHC 31.6 RDW 13.5 Plt Count 193 MPV 10.2 Absolute Nucleated RBC 0.000 Nucleated RBC % (auto) 0.0 Anion Gap 16 19 Estim Creat Clear Calc 8.0 5.7 Estimated GFR 7 6 Fasting Glucose 87 89 Calcium 9.6 9.5 Random Vancomycin Microbiology Microbiology Results: Microbiology 10/19/21 Unknown Urine Culture - Final Urine Catheterized - Straight Catheter Klebsiella pneumoniae 10/19/21 22:28 Blood Culture - Final Blood - Venous Klebsiella pneumoniae 10/19/21 22:28 Blood Culture - Preliminary Blood - Venous No growth after 48 hours. 10/20/21 10:45 Stool Culture - Preliminary Stool Normal so far. Assessment and Plan (1) Sepsis: Status: Acute Plan 76F presented with weakness, cough, diarrhea sepsis present on admission due to UTI, pneumonia with GNR bacteremia continue zosyn follow up cultures hypotension due to hypovolemia from diarrhea and low baseline bp not severe sepsis diarrhea cdif pcr positive, toxin negative - colonized imodium prn ESRD HD renvela paroxysmal atrial fibrillation multaq eliquis hypothyroid synthroid mood disorder lamictal clozaril breast cancer tamoxifen chronic hypoxic respiratory failure due to copd on 2L prn home o2, anoro ellipta dvt prophylaxis - eliquis full code reason for continued hospitalization: continue close monitoring and iv antibiotics, gram stain positive awaiting cultures to direct oral therapy, high risk for decompensation to severe sepsis due to comorbitidities of ESRD, copd, continues to have low grade fever Quality Stroke Does the patient have a stroke diagnosis?: No VTE Prior VTE?: No VTE Risk Level:: Medical - moderate - high VTE Device Contraindication: Treatment Not Indicated VTE Drug Contraindication: N/A - Med Ordered
[2021-10-22] MEDS: Acetaminophen 325 MG TABLET 650 MG PO (10:37)
[2021-10-22] MEDS: Hydrocortisone 1 % Cream 28.35 GM TUBE 1 APPL TOPICAL (10:41)
[2021-10-22 11:22] LABS: Troponin-I High Sensitivity 41.2 ng/L (<3.5-17.0)
--- NOTE | 2021-10-22 12:26 | MHC.CLN ---
RE: CONSULT RECOMMEND ADDING LOW PHOS TO CURRENT DIET R/T ESRD ON HD PER RENAL WILL START 8OZ ENSURE CLEAR TID R/T POOR PO SUPP IS RENAL FRIENDLY AND PROVIDES 720KCALS, 24G PROTEIN MONITOR PO INTAKE CLOSELY
[2021-10-22] MEDS: HYDROmorphone HCl 2 MG TABLET 1 MG PO (13:39)
[2021-10-22] MEDS: Tamoxifen Citrate 10 MG TABLET 20 MG PO (13:40)
[2021-10-22] MEDS: cefTRIAXone sodium 1 GM in 0.9 % Sodium Chloride 50 ML IV (13:51)
--- NOTE | 2021-10-22 14:41 | MHC.CM.PN ---
per rounds pt has a low grade fever not ready for dc
--- NOTE | 2021-10-22 19:25 | PM.PNNEP ---
Subjective Subjective Date of Service: 10/22/21 Interval history: Seen and examined, events noted Physical Exam Vital Signs: Vital Signs: Last Vital Signs Temp 99.1 F 10/22/21 15:34 Pulse 75 10/22/21 15:34 Resp 19 10/22/21 15:34 BP 112/54 L 10/22/21 15:34 Pulse Ox 96 10/22/21 15:34 BMI result Body Mass Index 23.3 Const: General: no acute distress and alert Eyes: General: appearance normal, both eyes and all related structures Neck: Neck: Yes supple Resp: Auscultation: clear to auscultation bilaterally Cardio: Jugular venous distension: no JVD Heart sounds: no rubs GI: Auscultation: normal bowel sounds Extrem: General: No cyanosis and No edema Objective Data Labs CBC & Chem 7: 10/22/21 06:06 10/22/21 06:06 Labs: Laboratory Results - last 24 hr 10/22/21 10/22/21 10/22/21 06:06 06:06 10:56 WBC 9.6 RBC 2.42 L Hgb 7.9 L Hct 25.0 L MCV 103.3 H MCH 32.6 MCHC 31.6 RDW 13.5 Plt Count 193 MPV 10.2 Absolute Nucleated RBC 0.000 Nucleated RBC % (auto) 0.0 Sodium 139 Potassium 3.7 Chloride 102 Carbon Dioxide 22 Anion Gap 19 BUN 46 H Creatinine 7.15 H* Estim Creat Clear Calc 5.7 Estimated GFR 6 Fasting Glucose 89 Calcium 9.5 Troponin I High Sens 41.2 H Microbiology Microbiology Results: Microbiology 10/20/21 10:45 Stool Stool Culture - Preliminary Normal so far. 10/19/21 Unknown Urine Catheterized - Straight Catheter Urine Culture - Final Klebsiella pneumoniae 10/19/21 22:28 Blood - Venous Blood Culture - Final Klebsiella pneumoniae 10/19/21 22:28 Blood - Venous Blood Culture - Preliminary No growth after 48 hours. Procedures Date of Service Date of Service: 10/22/21 Assessment & Plan Assessment and plan (1) Anemia, chronic renal failure: Status: Acute Plan 76-year-old female with a past medical history of? hyperlipidemia, ESRD on hemodialysis, history of breast cancer, hypothyroidism, anxiety, depression, bipolar, history of pulmonary embolism, history of SBO, seizures, COPD presented to the hospital after hemodialysis session with a chief complaint of generalized weakness and cough.? Noted to have findings on the CT scan concerning for pneumonia.? Admitted to the hospital for further management. Episode of CP this am ESRD: mwf Anemia: epo as noted Will follow with team Time Spent With Patient Time: Total time spent is greater than 50% in coordination of care (as documented) at patient's floor/unit and/or counseling patient: Progress Note: Quality Stroke Does the patient have a stroke diagnosis?: No
[2021-10-22] MEDS: clonazePAM 1 MG TABLET PO (20:09)
[2021-10-22] MEDS: Melatonin 3 MG TABLET 6 MG PO ×2 (20:09→20:10)
[2021-10-22] MEDS: lamoTRIgine 25 MG TABLET 150 MG PO (20:10)
[2021-10-22] MEDS: cloZAPine 25 MG TABLET 150 MG PO (20:10)
[2021-10-22] MEDS: guaiFENesin DM 100/10/5 ML 5 ML SYRUP PO (20:21)
[2021-10-23 04:00] VITALS: BP 105/60; PULSE 81; RESP 16; TEMP 37.3; O2SAT 95
[2021-10-23 05:51] LABS: Hematocrit 24.2 % (37.0-47.0); Hemoglobin 7.6 g/dl (12.0-16.0); Mean Corpuscular HGB Conc 31.4 g/dl (31.0-35.0); Mean Corpuscular Hemoglobin 32.6 pg (27.0-33.0); Mean Corpuscular Volume 103.9 fL (80.0-98.0); Mean Platelet Volume 9.7 fL (9.4-12.3); Platelet Count 190 X10*3/uL (160-400); Red Blood Count 2.33 X10*6/uL (4.20-5.50); Red Cell Distribution Width 13.4 % (11.0-16.0); White Blood Count 9.3 X10*3/uL (4.8-10.8)
[2021-10-23 06:00] VITALS: BMI 23.8
[2021-10-23 06:13] LABS: Anion Gap 15 (12-20); Blood Urea Nitrogen 26 mg/dL (9-16); Calcium 9.3 mg/dL (8.4-10.2); Carbon Dioxide 20 mmol/L (22-29); Chloride 105 mmol/L (96-108); Creatinine Clr Calc Pharmacy 9.1; Estimated Glomerular Filt Rate 10; Glucose Fasting 92 mg/dL (60-99); Potassium 4.6 mmol/L (3.3-5.1); Sodium 135 mmol/L (135-145)
[2021-10-23] MEDS: Levothyroxine Sodium 150 MCG TABLET PO (06:18)
[2021-10-23] MEDS: 0.9 % Sodium Chloride Flush 3 ML SYRINGE IVFLUSH ×3 (07:22→19:41)
[2021-10-23] MEDS: Sevelamer Carbonate Tablet 800 MG TABLET 1600 MG PO ×2 (07:22→17:19)
[2021-10-23 07:23] VITALS: BP 108/40; PULSE 85; RESP 20; TEMP 38.6; O2SAT 94
[2021-10-23] MEDS: Midodrine HCl 5 MG TABLET PO ×3 (07:23→17:20)
[2021-10-23] MEDS: Dronedarone HCl 400 MG TABLET PO ×2 (07:23→19:37)
[2021-10-23] MEDS: Apixaban 2.5 MG TABLET PO ×2 (07:23→19:36)
--- NOTE | 2021-10-23 09:28 | P.PNIM_ITS ---
Subjective Subjective Date of Service: 10/23/21 Interval History: cc: weakness interval history:still weak, still having fevers Cardiovascular Cardiovascular: Reports no additional cardiovascular complaints Respiratory Respiratory: Reports no additional respiratory complaints Physical Exam Vital Signs: Vital Signs: Last Vital Signs Temp 101.5 F H 10/23/21 07:23 Pulse 85 10/23/21 07:23 Resp 20 10/23/21 07:23 BP 108/40 L 10/23/21 07:23 Pulse Ox 94 10/23/21 07:23 BMI result Body Mass Index 23.8 General: lethargic oriented times 3, ill appearing Resp:? CTA bilateral, no accessory muscles used CVS: S1,S2,RRR GI: soft, non tender, non distended Neuro:? motor grossly intact, lethargic Psych: appropriate affect, appropriate insight? Objective Data Active Medications Acetaminophen (Acetaminophen 325 Mg Tablet) 650 mg PO Q6H PRN PRN Reason: Pain, Mild (Pain Scale 1-3) Last Admin: 10/22/21 10:37 Dose: 650 mg Documented by: LIBORIO Albuterol Sulfate (Albuterol Sulfate (0.083%) 2.5 Mg/3 Ml Vial.Neb) 2.5 mg INHALE DAILY [facility] Last Admin: 10/23/21 07:56 Dose: Not Given Documented by: CHANTAL Non-Admin Reason: Patient Refused Albuterol/Ipratropium (Albuterol/Iprat 2.5/0.5mg 3 Ml Ampul.Neb) 3 ml INHALE RQ4H PRN PRN Reason: Shortness of Breath/Wheezing Apixaban (Apixaban 2.5 Mg Tablet) 2.5 mg PO BID [facility] Last Admin: 10/23/21 07:23 Dose: 2.5 mg Documented by: LIBORIO Clonazepam (Clonazepam 1 Mg Tablet) 1 mg PO BEDTIME [facility] Last Admin: 10/22/21 20:09 Dose: 1 mg Documented by: ALEXANDRE Clozapine (Clozapine 25 Mg Tablet) 150 mg PO BEDTIME [facility] Last Admin: 10/22/21 20:10 Dose: 150 mg Documented by: ALEXANDRE Dronedarone (Dronedarone Hcl 400 Mg Tablet) 400 mg PO BID [facility] Last Admin: 10/23/21 07:23 Dose: 400 mg Documented by: LIBORIO Epoetin Tim (Epoetin Tim 20,000 Unit/Ml Vial) 20,000 unit SUBCUT WeFr@[id number] [facility] Stop: 10/24/21 16:46 Guaifenesin/Dextromethorphan (Guaifenesin Dm 100/10/5 Ml 5 Ml Syrup) 5 ml PO Q4H PRN PRN Reason: cough Last Admin: 10/22/21 20:21 Dose: 5 ml Documented by: ALEXANDRE Hydrocortisone (Hydrocortisone 1 % Cream 28.35 Gm Tube) 1 appl TOPICAL BID PRN PRN Reason: skin irritation Last Admin: 10/22/21 10:41 Dose: 1 appl Documented by: LIBORIO Hydroxyzine HCl (Hydroxyzine Hcl 50 Mg Tablet) 50 mg PO BEDTIME PRN PRN Reason: for insomnia Ceftriaxone Sodium 1 gm/ (Sodium Chloride) 50 mls @ 100 mls/hr IV Q24H [facility] Last Infusion: 10/22/21 15:18 Dose: 0 mls/hr Documented by: BETSY Lamotrigine (Lamotrigine 25 Mg Tablet) 150 mg PO BEDTIME [facility] Last Admin: 10/22/21 20:10 Dose: 150 mg Documented by: ALEXANDRE Levothyroxine Sodium (Levothyroxine Sodium 150 Mcg Tablet) 150 mcg PO DAILY@0600 [facility] Last Admin: 10/23/21 06:18 Dose: 150 mcg Documented by: ALEXANDRE Loperamide HCl (Loperamide Hcl 2 Mg Capsule) 2 mg PO Q6H PRN PRN Reason: diarrhea Last Admin: 10/21/21 13:57 Dose: 2 mg Documented by: JARON Melatonin (Melatonin 3 Mg Tablet) 6 mg PO BEDTIME PRN PRN Reason: Insomnia Last Admin: 10/22/21 20:09 Dose: 6 mg Documented by: ALEXANDRE Melatonin (Melatonin 3 Mg Tablet) 6 mg PO BEDTIME PRN PRN Reason: Insomnia Last Admin: 10/22/21 20:10 Dose: 6 mg Documented by: ALEXANDRE Midodrine (Midodrine Hcl 5 Mg Tablet) 5 mg PO TIDAC [facility] Last Admin: 10/23/21 07:23 Dose: 5 mg Documented by: LIBORIO Pharmacy Consult (Consult Rx Vancomycin Dosing) 1 each MISCELLANE DAILY PRN PRN Reason: Consult order Senna (Sennosides 8.6 Mg Tablet) 17.2 mg PO BEDTIME PRN PRN Reason: Constipation Sevelamer Carbonate (Sevelamer Carbonate Tablet 800 Mg Tablet) 1,600 mg PO BIDWM [facility] Last Admin: 10/23/21 07:22 Dose: 1,600 mg Documented by: LIBORIO Sodium Chloride (0.9 % Sodium Chloride Flush 3 Ml Syringe) 3 ml IVFLUSH QSHIFT [facility] Last Admin: 10/23/21 07:22 Dose: 3 ml Documented by: LIBORIO Tamoxifen Citrate (Tamoxifen Citrate 10 Mg Tablet) 20 mg PO DAILY@1400 [facility] Last Admin: 10/22/21 13:40 Dose: 20 mg Documented by: BETSY Tiotropium [place] (Tiotropium [place] 18 Mcg Cap.W.Dev) 1 puff INHALE RDAILY [facility] Last Admin: 10/23/21 07:55 Dose: Not Given Documented by: CHANTAL Non-Admin Reason: Patient Refused Labs CBC & Chem 7: 10/23/21 05:41 10/23/21 05:41 Labs: Laboratory Results - last 24 hr 10/23/21 10/23/21 05:41 05:41 MCV 103.9 H MCH 32.6 MCHC 31.4 RDW 13.4 Plt Count 190 MPV 9.7 Absolute Nucleated RBC 0.000 Nucleated RBC % (auto) 0.0 Anion Gap 15 Estim Creat Clear Calc 9.1 Estimated GFR 10 Fasting Glucose 92 Calcium 9.3 Microbiology Microbiology Results: Microbiology 10/20/21 10:45 Stool Culture - Preliminary Stool Normal so far. 10/19/21 Unknown Urine Culture - Final Urine Catheterized - Straight Catheter Klebsiella pneumoniae 10/19/21 22:28 Blood Culture - Final Blood - Venous Klebsiella pneumoniae Assessment and Plan (1) Sepsis: Status: Acute Plan 76F presented with weakness, cough, diarrhea sepsis present on admission due to UTI, pneumonia with klebsiella bacteremia changed to ceftriaxone still febrile hypotension due to hypovolemia from diarrhea and low baseline bp not severe sepsis diarrhea cdif pcr positive, toxin negative - colonized imodium prn ESRD HD renvela paroxysmal atrial fibrillation multaq eliquis hypothyroid synthroid mood disorder lamictal clozaril breast cancer tamoxifen chronic hypoxic respiratory failure due to copd on 2L prn home o2, anoro ellipta dvt prophylaxis - eliquis full code reason for continued hospitalization: continue close monitoring and iv antibiotics, continues to be febrile, high risk for decompensation to severe sepsis due to comorbitidities of ESRD, copd, Quality Stroke Does the patient have a stroke diagnosis?: No VTE Prior VTE?: No VTE Risk Level:: Medical - moderate - high VTE Device Contraindication: Treatment Not Indicated VTE Drug Contraindication: N/A - Med Ordered
[2021-10-23 10:57] VITALS: BP 107/54; PULSE 78; RESP 19; TEMP 37.2; O2SAT 96
[2021-10-23] MEDS: Acetaminophen 325 MG TABLET 650 MG PO (14:25)
[2021-10-23] MEDS: cefTRIAXone sodium 1 GM in 0.9 % Sodium Chloride 50 ML IV (14:26)
[2021-10-23] MEDS: Tamoxifen Citrate 10 MG TABLET 20 MG PO (14:27)
[2021-10-23 16:00] VITALS: BP 97/52; PULSE 75; TEMP 37.8; O2SAT 98
--- NOTE | 2021-10-23 19:21 | PM.PNNEP ---
Subjective Subjective Date of Service: 10/23/21 Interval history: Seen and examined, events noted Physical Exam Vital Signs: Vital Signs: Last Vital Signs Temp 100.1 F 10/23/21 16:00 Pulse 75 10/23/21 16:00 Resp 19 10/23/21 10:57 BP 97/52 L 10/23/21 16:00 Pulse Ox 98 10/23/21 16:00 BMI result Body Mass Index 23.8 Const: General: no acute distress and alert Eyes: General: appearance normal, both eyes and all related structures Neck: Neck: Yes supple Resp: Auscultation: clear to auscultation bilaterally Cardio: Jugular venous distension: no JVD Heart sounds: no rubs GI: Auscultation: normal bowel sounds Extrem: General: No cyanosis and No edema Objective Data Labs CBC & Chem 7: 10/23/21 05:41 10/23/21 05:41 Labs: Laboratory Results - last 24 hr 10/23/21 10/23/21 05:41 05:41 WBC 9.3 RBC 2.33 L Hgb 7.6 L Hct 24.2 L MCV 103.9 H MCH 32.6 MCHC 31.4 RDW 13.4 Plt Count 190 MPV 9.7 Absolute Nucleated RBC 0.000 Nucleated RBC % (auto) 0.0 Sodium 135 Potassium 4.6 D Chloride 105 Carbon Dioxide 20 L Anion Gap 15 BUN 26 H Creatinine 4.46 H* Estim Creat Clear Calc 9.1 Estimated GFR 10 Fasting Glucose 92 Calcium 9.3 Microbiology Microbiology Results: Microbiology 10/20/21 10:45 Stool Stool Culture - Final 10/19/21 Unknown Urine Catheterized - Straight Catheter Urine Culture - Final Klebsiella pneumoniae 10/19/21 22:28 Blood - Venous Blood Culture - Final Klebsiella pneumoniae 10/19/21 22:28 Blood - Venous Blood Culture - Preliminary No growth after 48 hours. Procedures Date of Service Date of Service: 10/23/21 Assessment & Plan Assessment and plan (1) Anemia, chronic renal failure: Status: Acute Plan 76-year-old female with a past medical history of? hyperlipidemia, ESRD on hemodialysis, history of breast cancer, hypothyroidism, anxiety, depression, bipolar, history of pulmonary embolism, history of SBO, seizures, COPD presented to the hospital after hemodialysis session with a chief complaint of generalized weakness and cough.? Noted to have findings on the CT scan concerning for pneumonia.? Admitted to the hospital for further management. Episode of CP this am ESRD: mwf Anemia: epo as noted GNB w recent ureteral stent: source of infection and doubtPcath is infected but need to repeat Bld cult REC: cont HD3x/wk; abx a snoted, repeat blood cult will follow with team Will follow with team Time Spent With Patient Time: Total time spent is greater than 50% in coordination of care (as documented) at patient's floor/unit and/or counseling patient: Progress Note: Quality Stroke Does the patient have a stroke diagnosis?: No
[2021-10-23] MEDS: cloZAPine 25 MG TABLET 150 MG PO (19:36)
[2021-10-23] MEDS: clonazePAM 1 MG TABLET PO (19:37)
[2021-10-23] MEDS: lamoTRIgine 25 MG TABLET 150 MG PO (19:37)
[2021-10-23] MEDS: Melatonin 3 MG TABLET 6 MG PO (19:37)
[2021-10-23 20:00] VITALS: BP 97/50; PULSE 75; TEMP 37.4; O2SAT 94
[2021-10-23 23:52] VITALS: BP 100/48; PULSE 74; RESP 20; TEMP 36.9; O2SAT 96
[2021-10-24] VITALS (8 sets, daily range): BP systolic 98–111; BP diastolic 48–54; PULSE 69–78; RESP 19–20; TEMP 36.8–37.9; O2SAT 95–99; BMI 24.7
--- NOTE | 2021-10-24 05:52 | PC.NURSE ---
Pt very lethargic, unable to safely administer morning PO medication. Will report to oncoming RN.
[2021-10-24 06:57] LABS: Hematocrit 24.3 % (37.0-47.0); Hemoglobin 7.4 g/dl (12.0-16.0); Mean Corpuscular HGB Conc 30.5 g/dl (31.0-35.0); Mean Corpuscular Hemoglobin 32.6 pg (27.0-33.0); Mean Platelet Volume 10.2 fL (9.4-12.3); Platelet Count 209 X10*3/uL (160-400); Red Blood Count 2.27 X10*6/uL (4.20-5.50); Red Cell Distribution Width 13.2 % (11.0-16.0); White Blood Count 9.9 X10*3/uL (4.8-10.8)
[2021-10-24 07:09] LABS: Anion Gap 15 (12-20); Blood Urea Nitrogen 36 mg/dL (9-16); Calcium 9.4 mg/dL (8.4-10.2); Carbon Dioxide 18 mmol/L (22-29); Chloride 107 mmol/L (96-108); Creatinine Clr Calc Pharmacy 6.9; Estimated Glomerular Filt Rate 6; Glucose Fasting 82 mg/dL (60-99); Potassium 4.9 mmol/L (3.3-5.1); Sodium 135 mmol/L (135-145)
[2021-10-24] MEDS: Apixaban 2.5 MG TABLET PO ×2 (07:49→21:12)
[2021-10-24] MEDS: Dronedarone HCl 400 MG TABLET PO ×2 (07:49→21:12)
[2021-10-24] MEDS: Levothyroxine Sodium 150 MCG TABLET PO (07:49)
[2021-10-24] MEDS: Midodrine HCl 5 MG TABLET PO ×3 (07:50→17:27)
[2021-10-24] MEDS: Sevelamer Carbonate Tablet 800 MG TABLET 1600 MG PO ×2 (07:50→17:27)
[2021-10-24] MEDS: Acetaminophen 325 MG TABLET 650 MG PO ×2 (08:03→16:29)
[2021-10-24] MEDS: Albuterol Sulfate (0.083%) 2.5 MG/3 ML VIAL.NEB INHALE (08:09)
[2021-10-24] MEDS: 0.9 % Sodium Chloride Flush 3 ML SYRINGE IVFLUSH ×3 (08:14→21:13)
--- NOTE | 2021-10-24 09:20 | HO.PM.IMPN ---
Subjective Subjective Date of Service: 10/24/21 Interval History: cc: weakness interval history:still weak, last temp am of 10/23 Cardiovascular Cardiovascular: Reports no additional cardiovascular complaints Respiratory Respiratory: Reports no additional respiratory complaints Physical Exam Vital Signs: Vital Signs: Last Vital Signs Temp 98.3 F 10/24/21 07:13 Pulse 78 10/24/21 08:09 Resp 20 10/24/21 08:09 BP 111/51 L 10/24/21 07:13 Pulse Ox 95 10/24/21 07:13 BMI result Body Mass Index 24.7 General: lethargic oriented times 3, ill appearing Resp:? CTA bilateral, no accessory muscles used CVS: S1,S2,RRR GI: soft, non tender, non distended Neuro:? motor grossly intact, lethargic Psych: appropriate affect, appropriate insight? Objective Data Active Medications Acetaminophen (Acetaminophen 325 Mg Tablet) 650 mg PO Q6H PRN PRN Reason: Pain, Mild (Pain Scale 1-3) Last Admin: 10/24/21 08:03 Dose: 650 mg Documented by: ROD Albuterol Sulfate (Albuterol Sulfate (0.083%) 2.5 Mg/3 Ml Vial.Neb) 2.5 mg INHALE DAILY [facility] Last Admin: 10/24/21 08:09 Dose: 2.5 mg Documented by: CHANTAL Albuterol/Ipratropium (Albuterol/Iprat 2.5/0.5mg 3 Ml Ampul.Neb) 3 ml INHALE RQ4H PRN PRN Reason: Shortness of Breath/Wheezing Apixaban (Apixaban 2.5 Mg Tablet) 2.5 mg PO BID [facility] Last Admin: 10/24/21 07:49 Dose: 2.5 mg Documented by: ROD Clonazepam (Clonazepam 1 Mg Tablet) 1 mg PO BEDTIME [facility] Last Admin: 10/23/21 19:37 Dose: 1 mg Documented by: ALESSANDRA Clozapine (Clozapine 25 Mg Tablet) 150 mg PO BEDTIME [facility] Last Admin: 10/23/21 19:36 Dose: 150 mg Documented by: ALESSANDRA Dronedarone (Dronedarone Hcl 400 Mg Tablet) 400 mg PO BID [facility] Last Admin: 10/24/21 07:49 Dose: 400 mg Documented by: ORD Epoetin Tim (Epoetin Tim 20,000 Unit/Ml Vial) 20,000 unit SUBCUT WeFr@[id number] [facility] Stop: 10/24/21 16:46 Guaifenesin/Dextromethorphan (Guaifenesin Dm 100/10/5 Ml 5 Ml Syrup) 5 ml PO Q4H PRN PRN Reason: cough Last Admin: 10/22/21 20:21 Dose: 5 ml Documented by: ALEXANDRE Hydrocortisone (Hydrocortisone 1 % Cream 28.35 Gm Tube) 1 appl TOPICAL BID PRN PRN Reason: skin irritation Last Admin: 10/22/21 10:41 Dose: 1 appl Documented by: LIBORIO Hydroxyzine HCl (Hydroxyzine Hcl 50 Mg Tablet) 50 mg PO BEDTIME PRN PRN Reason: for insomnia Ceftriaxone Sodium 1 gm/ (Sodium Chloride) 50 mls @ 100 mls/hr IV Q24H [facility] Last Infusion: 10/23/21 15:23 Dose: 0 mls/hr Documented by: LIBORIO Lamotrigine (Lamotrigine 25 Mg Tablet) 150 mg PO BEDTIME [facility] Last Admin: 10/23/21 19:37 Dose: 150 mg Documented by: ALESSANDRA Levothyroxine Sodium (Levothyroxine Sodium 150 Mcg Tablet) 150 mcg PO DAILY@0600 [facility] Last Admin: 10/24/21 07:49 Dose: 150 mcg Documented by: ROD Loperamide HCl (Loperamide Hcl 2 Mg Capsule) 2 mg PO Q6H PRN PRN Reason: diarrhea Last Admin: 10/21/21 13:57 Dose: 2 mg Documented by: JARON Melatonin (Melatonin 3 Mg Tablet) 6 mg PO BEDTIME PRN PRN Reason: Insomnia Last Admin: 10/23/21 19:37 Dose: 6 mg Documented by: ALESSANDRA Melatonin (Melatonin 3 Mg Tablet) 6 mg PO BEDTIME PRN PRN Reason: Insomnia Last Admin: 10/22/21 20:10 Dose: 6 mg Documented by: ALEXANDRE Midodrine (Midodrine Hcl 5 Mg Tablet) 5 mg PO TIDAC [facility] Last Admin: 10/24/21 07:50 Dose: 5 mg Documented by: ROD Pharmacy Consult (Consult Rx Vancomycin Dosing) 1 each MISCELLANE DAILY PRN PRN Reason: Consult order Senna (Sennosides 8.6 Mg Tablet) 17.2 mg PO BEDTIME PRN PRN Reason: Constipation Sevelamer Carbonate (Sevelamer Carbonate Tablet 800 Mg Tablet) 1,600 mg PO BIDWM [facility] Last Admin: 10/24/21 07:50 Dose: 1,600 mg Documented by: ROD Sodium Chloride (0.9 % Sodium Chloride Flush 3 Ml Syringe) 3 ml IVFLUSH QSHIFT [facility] Last Admin: 10/24/21 08:14 Dose: 3 ml Documented by: ROD Tamoxifen Citrate (Tamoxifen Citrate 10 Mg Tablet) 20 mg PO DAILY@1400 [facility] Last Admin: 10/23/21 14:27 Dose: 20 mg Documented by: LIBORIO Tiotropium [place] (Tiotropium [place] 18 Mcg Cap.W.Dev) 1 puff INHALE RDAILY [facility] Last Admin: 10/24/21 08:14 Dose: 1 puff Documented by: CHANTAL Labs CBC & Chem 7: 10/24/21 06:19 10/24/21 06:19 Labs: Laboratory Results - last 24 hr 10/24/21 10/24/21 06:19 06:19 MCV 107.0 H MCH 32.6 MCHC 30.5 L RDW 13.2 Plt Count 209 MPV 10.2 Absolute Nucleated RBC 0.000 Nucleated RBC % (auto) 0.0 Anion Gap 15 Estim Creat Clear Calc 6.9 Estimated GFR 6 Fasting Glucose 82 Calcium 9.4 Microbiology Microbiology Results: Microbiology 10/20/21 10:45 Stool Culture - Final Stool Assessment and Plan (1) Sepsis: Status: Acute Plan 76F presented with weakness, cough, diarrhea sepsis present on admission due to UTI, pneumonia with klebsiella bacteremia continue ceftriaxone follow up repeat culture from 10/24 hypotension due to hypovolemia from diarrhea and low baseline bp not severe sepsis on midodrine, improved diarrhea cdif pcr positive, toxin negative - colonized imodium prn ESRD HD renvela paroxysmal atrial fibrillation multaq eliquis hypothyroid synthroid mood disorder lamictal clozaril breast cancer tamoxifen chronic hypoxic respiratory failure due to copd on 2L prn home o2, anoro ellipta dvt prophylaxis - eliquis full code reason for continued hospitalization: ill appearing, continue close monitoring and iv antibiotics, would await repeat cultures to ensure clearance and atleast 48hrs afebrile, high risk for decompensation to severe sepsis due to comorbitidities of ESRD, copd, Quality Stroke Does the patient have a stroke diagnosis?: No VTE Prior VTE?: No VTE Risk Level:: Medical - moderate - high VTE Device Contraindication: Treatment Not Indicated VTE Drug Contraindication: N/A - Med Ordered
[2021-10-24] MEDS: hydrOXYzine HCL 50 MG TABLET PO (10:52)
[2021-10-24] MEDS: diphenhydrAMINE HCL 25 MG TABLET 12.5 MG PO (12:01)
--- NOTE | 2021-10-24 15:39 | PM.PNNEP ---
Subjective Subjective Date of Service: 10/24/21 Interval history: seen and examined, events noted Physical Exam Vital Signs: Vital Signs: Last Vital Signs Temp 100.3 F 10/24/21 11:59 Pulse 77 10/24/21 11:59 Resp 19 10/24/21 11:59 BP 106/49 L 10/24/21 11:59 Pulse Ox 99 10/24/21 11:59 BMI result Body Mass Index 24.7 Const: General: no acute distress and alert Eyes: General: appearance normal, both eyes and all related structures Neck: Neck: Yes supple Resp: Auscultation: clear to auscultation bilaterally Cardio: Jugular venous distension: no JVD Heart sounds: no rubs GI: Auscultation: normal bowel sounds Extrem: General: No cyanosis and No edema Objective Data Labs CBC & Chem 7: 10/24/21 06:19 10/24/21 06:19 Labs: Laboratory Results - last 24 hr 10/24/21 10/24/21 06:19 06:19 WBC 9.9 RBC 2.27 L Hgb 7.4 L Hct 24.3 L MCV 107.0 H MCH 32.6 MCHC 30.5 L RDW 13.2 Plt Count 209 MPV 10.2 Absolute Nucleated RBC 0.000 Nucleated RBC % (auto) 0.0 Sodium 135 Potassium 4.9 Chloride 107 Carbon Dioxide 18 L Anion Gap 15 BUN 36 H Creatinine 6.37 H* Estim Creat Clear Calc 6.9 Estimated GFR 6 Fasting Glucose 82 Calcium 9.4 Microbiology Microbiology Results: Microbiology 10/20/21 10:45 Stool Stool Culture - Final 10/19/21 Unknown Urine Catheterized - Straight Catheter Urine Culture - Final Klebsiella pneumoniae 10/19/21 22:28 Blood - Venous Blood Culture - Final Klebsiella pneumoniae 10/19/21 22:28 Blood - Venous Blood Culture - Preliminary No growth after 48 hours. Procedures Date of Service Date of Service: 10/24/21 Assessment & Plan Assessment and plan (1) Anemia, chronic renal failure: Status: Acute Plan 76-year-old female with a past medical history of? hyperlipidemia, ESRD on hemodialysis, history of breast cancer, hypothyroidism, anxiety, depression, bipolar, history of pulmonary embolism, history of SBO, seizures, COPD presented to the hospital after hemodialysis session with a chief complaint of generalized weakness and cough.? Noted to have findings on the CT scan concerning for pneumonia.? Admitted to the hospital for further management. Episode of CP: resolved ESRD: mwf Anemia: epo as noted GNB w recent ureteral stent: source of infection and doubtPcath is infected but need to repeat Bld cult Low BPs: cont midrdine REC: cont HD3x/wk; abx as noted, repeat blood cult; d/c planning will follow with team Will follow with team Time Spent With Patient Time: Total time spent is greater than 50% in coordination of care (as documented) at patient's floor/unit and/or counseling patient: Progress Note: Quality Stroke Does the patient have a stroke diagnosis?: No
--- NOTE | 2021-10-24 16:00 | MHC.CM.PN ---
per rounds today pt is septic and not ready for dc
[2021-10-24] MEDS: Tamoxifen Citrate 10 MG TABLET 20 MG PO (16:30)
[2021-10-24] MEDS: cefTRIAXone sodium 1 GM in 0.9 % Sodium Chloride 50 ML IV (16:32)
[2021-10-24] MEDS: cloZAPine 25 MG TABLET 150 MG PO (21:11)
[2021-10-24] MEDS: clonazePAM 1 MG TABLET PO (21:12)
[2021-10-24] MEDS: Melatonin 3 MG TABLET 6 MG PO (21:12)
[2021-10-24] MEDS: lamoTRIgine 25 MG TABLET 150 MG PO (21:13)
[2021-10-25] VITALS (9 sets, daily range): BP systolic 99–111; BP diastolic 52–64; PULSE 68–78; RESP 18–20; TEMP 36.4–37.1; O2SAT 93–99; BMI 24.0
[2021-10-25] MEDS: Levothyroxine Sodium 150 MCG TABLET PO (05:39)
[2021-10-25 06:32] LABS: Hematocrit 23.2 % (37.0-47.0); Hemoglobin 7.3 g/dl (12.0-16.0); Mean Corpuscular HGB Conc 31.5 g/dl (31.0-35.0); Platelet Count 198 X10*3/uL (160-400); Red Blood Count 2.21 X10*6/uL (4.20-5.50); Red Cell Distribution Width 13.4 % (11.0-16.0); White Blood Count 9.9 X10*3/uL (4.8-10.8)
[2021-10-25 06:52] LABS: Anion Gap 14 (12-20); Blood Urea Nitrogen 20 mg/dL (9-16); Calcium 9.5 mg/dL (8.4-10.2); Carbon Dioxide 22 mmol/L (22-29); Chloride 103 mmol/L (96-108); Creatinine Clr Calc Pharmacy 9.5; Estimated Glomerular Filt Rate 10; Glucose Fasting 91 mg/dL (60-99); Potassium 4.1 mmol/L (3.3-5.1); Sodium 135 mmol/L (135-145)
[2021-10-25] MEDS: Albuterol Sulfate (0.083%) 2.5 MG/3 ML VIAL.NEB INHALE (08:27)
[2021-10-25] MEDS: Sevelamer Carbonate Tablet 800 MG TABLET 1600 MG PO ×2 (09:00→17:21)
[2021-10-25] MEDS: Apixaban 2.5 MG TABLET PO ×2 (09:00→19:52)
[2021-10-25] MEDS: Midodrine HCl 5 MG TABLET PO ×3 (09:00→17:22)
[2021-10-25] MEDS: Dronedarone HCl 400 MG TABLET PO ×2 (09:00→19:52)
[2021-10-25] MEDS: 0.9 % Sodium Chloride Flush 3 ML SYRINGE IVFLUSH ×3 (09:02→19:54)
--- NOTE | 2021-10-25 10:42 | PM.PNNEP ---
Subjective Subjective Date of Service: 10/25/21 Interval history: seen and examined, events noted Physical Exam Vital Signs: Vital Signs: Last Vital Signs Temp 98.8 F 10/25/21 07:56 Pulse 74 10/25/21 09:31 Resp 20 10/25/21 09:31 BP 104/62 10/25/21 07:56 Pulse Ox 96 10/25/21 07:56 BMI result Body Mass Index 24.0 Const: General: no acute distress and alert Eyes: General: appearance normal, both eyes and all related structures Neck: Neck: Yes supple Resp: Auscultation: clear to auscultation bilaterally Cardio: Jugular venous distension: no JVD Heart sounds: no rubs GI: Auscultation: normal bowel sounds Extrem: General: No cyanosis and No edema Objective Data Labs CBC & Chem 7: 10/25/21 06:07 10/25/21 06:07 Labs: Laboratory Results - last 24 hr 10/25/21 10/25/21 06:07 06:07 WBC 9.9 RBC 2.21 L Hgb 7.3 L Hct 23.2 L MCV 105.0 H MCH 33.0 MCHC 31.5 RDW 13.4 Plt Count 198 MPV 10.0 Absolute Nucleated RBC 0.000 Nucleated RBC % (auto) 0.0 Sodium 135 Potassium 4.1 Chloride 103 Carbon Dioxide 22 Anion Gap 14 BUN 20 H Creatinine 4.28 H* Estim Creat Clear Calc 9.5 Estimated GFR 10 Fasting Glucose 91 Calcium 9.5 Microbiology Microbiology Results: Microbiology 10/24/21 06:19 Blood - Venous Blood Culture - Preliminary No growth after 24 hours. 10/24/21 06:19 Blood - Venous Blood Culture - Preliminary No growth after 24 hours. 10/19/21 22:28 Blood - Venous Blood Culture - Final Klebsiella pneumoniae 10/19/21 22:28 Blood - Venous Blood Culture - Final No growth after 5 days. 10/20/21 10:45 Stool Stool Culture - Final 10/19/21 Unknown Urine Catheterized - Straight Catheter Urine Culture - Final Klebsiella pneumoniae Procedures Date of Service Date of Service: 10/25/21 Assessment & Plan Assessment and plan (1) Anemia, chronic renal failure: Status: Acute Plan 76-year-old female with a past medical history of? hyperlipidemia, ESRD on hemodialysis, history of breast cancer, hypothyroidism, anxiety, depression, bipolar, history of pulmonary embolism, history of SBO, seizures, COPD presented to the hospital after hemodialysis session with a chief complaint of generalized weakness and cough.? Noted to have findings on the CT scan concerning for pneumonia.? Admitted to the hospital for further management. Episode of CP: resolved ESRD: mwf Anemia: epo as noted GNB w recent ureteral stent: source of infection and doubtPcath is infected but need to repeat Bld cult Low BPs: cont midrdine REC: cont HD3x/wk; abx as noted, ID eval if repeat bld cult pos; d/c planning; procrit ordered--xfuse if Hb remains < 7.5 will follow with team Will follow with team Time Spent With Patient Time: Total time spent is greater than 50% in coordination of care (as documented) at patient's floor/unit and/or counseling patient: Progress Note: Quality Stroke Does the patient have a stroke diagnosis?: No
--- NOTE | 2021-10-25 11:40 | HO.PM.IMPN ---
Subjective Subjective Date of Service: 10/25/21 Interval History: the patient was seen and evaluated this morning Laying in bed, feels sleepy this morning after getting Benadryl overnight Denies any fever, chills or shortness of breath No reported other overnight events. Systemic review: No fever, chills but reports generalized weakness No chest pain, palpitation No shortness of breath or coughing No abdominal pain, nausea or vomiting No urinary symptoms No any rash or wounds Physical Exam Vital Signs: Vital Signs: Last Vital Signs Temp 98.6 F 10/25/21 11:29 Pulse 68 10/25/21 11:29 Resp 20 10/25/21 11:29 BP 105/62 10/25/21 11:29 Pulse Ox 96 10/25/21 11:29 BMI result Body Mass Index 24.0 Const: Other: Constitutional : Alert, interactive, not in distress Neck : Normal inspection, Supple Cardiovascular : RRR, S1 S2, no lower extremity edema Respiratory : Good bilateral air entry, no crackles, wheezes or rhonchi Gastrointestinal: soft, lax, Normal bowel sounds, Non tender Skin : Warm, Dry Neurological : Alert & oriented to self and place, No focal deficit Objective Data Active Medications Acetaminophen (Acetaminophen 325 Mg Tablet) 650 mg PO Q6H PRN PRN Reason: Pain, Mild (Pain Scale 1-3) Last Admin: 10/24/21 16:29 Dose: 650 mg Documented by: ROD Albuterol Sulfate (Albuterol Sulfate (0.083%) 2.5 Mg/3 Ml Vial.Neb) 2.5 mg INHALE DAILY [facility] Last Admin: 10/25/21 08:27 Dose: 2.5 mg Documented by: CHANTAL Albuterol/Ipratropium (Albuterol/Iprat 2.5/0.5mg 3 Ml Ampul.Neb) 3 ml INHALE RQ4H PRN PRN Reason: Shortness of Breath/Wheezing Apixaban (Apixaban 2.5 Mg Tablet) 2.5 mg PO BID [facility] Last Admin: 10/25/21 09:00 Dose: 2.5 mg Documented by: DOBROB Clonazepam (Clonazepam 1 Mg Tablet) 1 mg PO BEDTIME [facility] Last Admin: 10/24/21 21:12 Dose: 1 mg Documented by: NAUMOC Clozapine (Clozapine 25 Mg Tablet) 150 mg PO BEDTIME [facility] Last Admin: 10/24/21 21:11 Dose: 150 mg Documented by: FABY Dronedarone (Dronedarone Hcl 400 Mg Tablet) 400 mg PO BID [facility] Last Admin: 10/25/21 09:00 Dose: 400 mg Documented by: JARON Guaifenesin/Dextromethorphan (Guaifenesin Dm 100/10/5 Ml 5 Ml Syrup) 5 ml PO Q4H PRN PRN Reason: cough Last Admin: 10/22/21 20:21 Dose: 5 ml Documented by: ALEXANDRE Hydrocortisone (Hydrocortisone 1 % Cream 28.35 Gm Tube) 1 appl TOPICAL BID PRN PRN Reason: skin irritation Last Admin: 10/22/21 10:41 Dose: 1 appl Documented by: LIBORIO Hydroxyzine HCl (Hydroxyzine Hcl 50 Mg Tablet) 50 mg PO BEDTIME PRN PRN Reason: for insomnia Last Admin: 10/24/21 10:52 Dose: 50 mg Documented by: ROD Ceftriaxone Sodium 1 gm/ (Sodium Chloride) 50 mls @ 100 mls/hr IV Q24H [facility] Last Infusion: 10/24/21 17:35 Dose: 0 mls/hr Documented by: ROD Lamotrigine (Lamotrigine 25 Mg Tablet) 150 mg PO BEDTIME [facility] Last Admin: 10/24/21 21:13 Dose: 150 mg Documented by: FABY Levothyroxine Sodium (Levothyroxine Sodium 150 Mcg Tablet) 150 mcg PO DAILY@0600 [facility] Last Admin: 10/25/21 05:39 Dose: 150 mcg Documented by: FABY Loperamide HCl (Loperamide Hcl 2 Mg Capsule) 2 mg PO Q6H PRN PRN Reason: diarrhea Last Admin: 10/21/21 13:57 Dose: 2 mg Documented by: JARON Melatonin (Melatonin 3 Mg Tablet) 6 mg PO BEDTIME PRN PRN Reason: Insomnia Last Admin: 10/24/21 21:12 Dose: 6 mg Documented by: FABY Melatonin (Melatonin 3 Mg Tablet) 6 mg PO BEDTIME PRN PRN Reason: Insomnia Last Admin: 10/22/21 20:10 Dose: 6 mg Documented by: ALEXANDRE Midodrine (Midodrine Hcl 5 Mg Tablet) 5 mg PO TIDAC [facility] Last Admin: 10/25/21 09:00 Dose: 5 mg Documented by: JARON Pharmacy Consult (Consult Rx Vancomycin Dosing) 1 each MISCELLANE DAILY PRN PRN Reason: Consult order Senna (Sennosides 8.6 Mg Tablet) 17.2 mg PO BEDTIME PRN PRN Reason: Constipation Sevelamer Carbonate (Sevelamer Carbonate Tablet 800 Mg Tablet) 1,600 mg PO BIDWM [facility] Last Admin: 10/25/21 09:00 Dose: 1,600 mg Documented by: JARON Sodium Chloride (0.9 % Sodium Chloride Flush 3 Ml Syringe) 3 ml IVFLUSH QSHIFT [facility] Last Admin: 10/25/21 09:02 Dose: 3 ml Documented by: JARON Tamoxifen Citrate (Tamoxifen Citrate 10 Mg Tablet) 20 mg PO DAILY@1400 [facility] Last Admin: 10/24/21 16:30 Dose: 20 mg Documented by: ROD Tiotropium Edmond (Tiotropium Edmond 18 Mcg Cap.W.Dev) 1 puff INHALE RDAILY [facility] Last Admin: 10/25/21 09:29 Dose: 1 puff Documented by: CHANTAL Labs CBC & Chem 7: 10/25/21 06:07 10/25/21 06:07 Labs: Laboratory Results - last 24 hr 10/25/21 10/25/21 06:07 06:07 MCV 105.0 H MCH 33.0 MCHC 31.5 RDW 13.4 Plt Count 198 MPV 10.0 Absolute Nucleated RBC 0.000 Nucleated RBC % (auto) 0.0 Anion Gap 14 Estim Creat Clear Calc 9.5 Estimated GFR 10 Fasting Glucose 91 Calcium 9.5 Microbiology Microbiology Results: Microbiology 10/24/21 06:19 Blood Culture - Preliminary Blood - Venous No growth after 24 hours. 10/24/21 06:19 Blood Culture - Preliminary Blood - Venous No growth after 24 hours. 10/19/21 22:28 Blood Culture - Final Blood - Venous Klebsiella pneumoniae 10/19/21 22:28 Blood Culture - Final Blood - Venous No growth after 5 days. Assessment and Plan (1) Sepsis: Status: Acute (2) Pneumonia: Status: Acute (3) Hypotension: Status: Acute (4) C. difficile diarrhea: Status: Acute Plan 76F presented with weakness, cough, diarrhea sepsis present on admission due to UTI, pneumonia recent klebsiella bacteremia from 10/19 continue ceftriaxone repeated blood culture from 10/24 negative after 24 hours hypotension due to hypovolemia from diarrhea and low baseline bp improving, not due to sepsis on midodrine diarrhea cdif pcr positive, toxin negative - colonized imodium prn to use vancomycin Daily as prophylaxis ESRD HD renvela nephrology following paroxysmal atrial fibrillation multaq eliquis hypothyroid synthroid mood disorder lamictal clozaril breast cancer tamoxifen chronic hypoxic respiratory failure due to copd on 2L prn home o2, anoro ellipta dvt prophylaxis - eliquis full code reason for continued hospitalization:Still ill appearing, continue close monitoring and iv antibiotics, would await repeat cultures to ensure clearance and atleast 48hrs afebrile, high risk for decompensation to severe sepsis due to comorbitidities of ESRD, copd, Quality Stroke Does the patient have a stroke diagnosis?: No VTE Prior VTE?: No VTE Risk Level:: Medical - moderate - high VTE Device Contraindication: Treatment Not Indicated VTE Drug Contraindication: N/A - Med Ordered
[2021-10-25] MEDS: vancomycin HCL 125 MG CAPSULE PO (12:45)
[2021-10-25] MEDS: Acetaminophen 325 MG TABLET 650 MG PO (15:10)
[2021-10-25] MEDS: cefTRIAXone sodium 1 GM in 0.9 % Sodium Chloride 50 ML IV (15:11)
[2021-10-25] MEDS: Tamoxifen Citrate 10 MG TABLET 20 MG PO (15:12)
[2021-10-25] MEDS: lamoTRIgine 25 MG TABLET 150 MG PO (19:51)
[2021-10-25] MEDS: clonazePAM 1 MG TABLET PO (19:52)
[2021-10-25] MEDS: cloZAPine 25 MG TABLET 150 MG PO (19:52)
[2021-10-25] MEDS: hydrOXYzine HCL 50 MG TABLET PO (20:59)
[2021-10-26] VITALS (9 sets, daily range): BP systolic 90–116; BP diastolic 50–64; PULSE 69–82; RESP 16–20; TEMP 36.6–37.4; O2SAT 91–97; BMI 23.3
[2021-10-26] MEDS: Levothyroxine Sodium 150 MCG TABLET PO (05:05)
[2021-10-26 06:57] LABS: Hematocrit 23.1 % (37.0-47.0); Hemoglobin 7.2 g/dl (12.0-16.0); Mean Corpuscular HGB Conc 31.2 g/dl (31.0-35.0); Mean Corpuscular Hemoglobin 32.9 pg (27.0-33.0); Mean Corpuscular Volume 105.5 fL (80.0-98.0); Mean Platelet Volume 10.4 fL (9.4-12.3); NRBC Pct Auto 0.2 /100WBC (0.0-0.2); Platelet Count 239 X10*3/uL (160-400); Red Blood Count 2.19 X10*6/uL (4.20-5.50); Red Cell Distribution Width 13.5 % (11.0-16.0); White Blood Count 9.6 X10*3/uL (4.8-10.8)
[2021-10-26] MEDS: Albuterol Sulfate (0.083%) 2.5 MG/3 ML VIAL.NEB INHALE (07:49)
[2021-10-26] MEDS: Apixaban 2.5 MG TABLET PO ×2 (08:17→20:14)
[2021-10-26] MEDS: Sevelamer Carbonate Tablet 800 MG TABLET 1600 MG PO ×2 (08:17→16:28)
[2021-10-26] MEDS: Midodrine HCl 5 MG TABLET PO ×2 (08:17→16:28)
[2021-10-26] MEDS: Dronedarone HCl 400 MG TABLET PO ×2 (08:17→20:13)
[2021-10-26] MEDS: vancomycin HCL 125 MG CAPSULE PO (08:17)
[2021-10-26] MEDS: 0.9 % Sodium Chloride Flush 3 ML SYRINGE IVFLUSH ×2 (08:18→20:16)
--- NOTE | 2021-10-26 10:30 | P.PNIM_ITS ---
Subjective Subjective Date of Service: 10/26/21 Interval History: the patient was seen and evaluated this morning Laying in bed, feels Little better but still sleepy at time of interview Hemoglobin dropped to 7.3, will need transfusion reports muscular chest pain and cough No reported other overnight events. Systemic review: No fever, chills but reports generalized weakness No chest pain, palpitation No shortness of breath but reporting productive cough No abdominal pain, nausea or vomiting No urinary symptoms No any rash or wounds Physical Exam Vital Signs: Vital Signs: Last Vital Signs Temp 99.4 F 10/26/21 07:02 Pulse 82 10/26/21 07:49 Resp 16 10/26/21 07:49 BP 110/54 L 10/26/21 07:02 Pulse Ox 93 10/26/21 07:02 BMI result Body Mass Index 23.3 Const: Other: Constitutional : Alert, interactive, not in distress Neck : Normal inspection, Supple Cardiovascular : RRR, S1 S2, no lower extremity edema Respiratory : Good bilateral air entry, no crackles, wheezes or rhonchi Gastrointestinal: soft, lax, Normal bowel sounds, Non tender Skin : Warm, Dry, line in place with no surrounding erythema Neurological : Alert & oriented to self and place, No focal deficit Objective Data Active Medications Acetaminophen (Acetaminophen 325 Mg Tablet) 650 mg PO Q6H PRN PRN Reason: Pain, Mild (Pain Scale 1-3) Last Admin: 10/25/21 15:10 Dose: 650 mg Documented by: JARON Albuterol Sulfate (Albuterol Sulfate (0.083%) 2.5 Mg/3 Ml Vial.Neb) 2.5 mg INHALE DAILY [facility] Last Admin: 10/26/21 07:49 Dose: 2.5 mg Documented by: HUA Albuterol/Ipratropium (Albuterol/Iprat 2.5/0.5mg 3 Ml Ampul.Neb) 3 ml INHALE RQ4H PRN PRN Reason: Shortness of Breath/Wheezing Apixaban (Apixaban 2.5 Mg Tablet) 2.5 mg PO BID [facility] Last Admin: 10/26/21 08:17 Dose: 2.5 mg Documented by: JARON Clozapine (Clozapine 25 Mg Tablet) 150 mg PO BEDTIME [facility] Last Admin: 10/25/21 19:52 Dose: 150 mg Documented by: FABY Dronedarone (Dronedarone Hcl 400 Mg Tablet) 400 mg PO BID [facility] Last Admin: 10/26/21 08:17 Dose: 400 mg Documented by: JARON Guaifenesin/Dextromethorphan (Guaifenesin Dm 100/10/5 Ml 5 Ml Syrup) 5 ml PO Q4 H PRN PRN Reason: cough Last Admin: 10/22/21 20:21 Dose: 5 ml Documented by: ALEXANDRE Hydrocortisone (Hydrocortisone 1 % Cream 28.35 Gm Tube) 1 appl TOPICAL BID PRN PRN Reason: skin irritation Last Admin: 10/22/21 10:41 Dose: 1 appl Documented by: LIBORIO Hydroxyzine HCl (Hydroxyzine Hcl 50 Mg Tablet) 50 mg PO BEDTIME PRN PRN Reason: for insomnia Last Admin: 10/25/21 20:59 Dose: 50 mg Documented by: FABY Ceftriaxone Sodium 1 gm/ (Sodium Chloride) 50 mls @ 100 mls/hr IV Q24H [facility] Last Infusion: 10/25/21 15:52 Dose: 0 mls/hr Documented by: JARON Lamotrigine (Lamotrigine 25 Mg Tablet) 150 mg PO BEDTIME [facility] Last Admin: 10/25/21 19:51 Dose: 150 mg Documented by: FABY Levothyroxine Sodium (Levothyroxine Sodium 150 Mcg Tablet) 150 mcg PO DAILY@0600 [facility] Last Admin: 10/26/21 05:05 Dose: 150 mcg Documented by: FABY Loperamide HCl (Loperamide Hcl 2 Mg Capsule) 2 mg PO Q6H PRN PRN Reason: diarrhea Last Admin: 10/21/21 13:57 Dose: 2 mg Documented by: JARON Melatonin (Melatonin 3 Mg Tablet) 6 mg PO BEDTIME PRN PRN Reason: Insomnia Last Admin: 10/24/21 21:12 Dose: 6 mg Documented by: FABY Melatonin (Melatonin 3 Mg Tablet) 6 mg PO BEDTIME PRN PRN Reason: Insomnia Last Admin: 10/22/21 20:10 Dose: 6 mg Documented by: ALEXANDRE Midodrine (Midodrine Hcl 5 Mg Tablet) 5 mg PO TIDAC [facility] Last Admin: 10/26/21 08:17 Dose: 5 mg Documented by: JARON Pharmacy Consult (Consult Rx Vancomycin Dosing) 1 each MISCELLANE DAILY PRN PRN Reason: Consult order Senna (Sennosides 8.6 Mg Tablet) 17.2 mg PO BEDTIME PRN PRN Reason: Constipation Sevelamer Carbonate (Sevelamer Carbonate Tablet 800 Mg Tablet) 1,600 mg PO BIDWM [facility] Last Admin: 10/26/21 08:17 Dose: 1,600 mg Documented by: JARON Sodium Chloride (0.9 % Sodium Chloride Flush 3 Ml Syringe) 3 ml IVFLUSH QSHIFT [facility] Last Admin: 10/26/21 08:18 Dose: 3 ml Documented by: JARON Tamoxifen Citrate (Tamoxifen Citrate 10 Mg Tablet) 20 mg PO DAILY@1400 [facility] Last Admin: 10/25/21 15:12 Dose: 20 mg Documented by: JARON Tiotropium [place] (Tiotropium [place] 18 Mcg Cap.W.Dev) 1 puff INHALE RDAILY [facility] Last Admin: 10/26/21 07:49 Dose: 1 puff Documented by: HUA Vancomycin HCl (Vancomycin Hcl 125 Mg Capsule) 125 mg PO DAILY [facility] Last Admin: 10/26/21 08:17 Dose: 125 mg Documented by: JARON Labs CBC & Chem 7: 10/26/21 06:42 10/25/21 06:07 Labs: Laboratory Results - last 24 hr 10/26/21 10/26/21 06:42 06:42 MCV 105.5 H MCH 32.9 MCHC 31.2 RDW 13.5 Plt Count 239 MPV 10.4 Absolute Nucleated RBC 0.020 H Nucleated RBC % (auto) 0.2 Blood Type O Positive Antibody Screen NEGATIVE Crossmatch See Detail Microbiology Microbiology Results: Microbiology 10/24/21 06:19 Blood Culture - Preliminary Blood - Venous No growth after 48 hours. 10/24/21 06:19 Blood Culture - Preliminary Blood - Venous No growth after 48 hours. 10/19/21 22:28 Blood Culture - Final Blood - Venous Klebsiella pneumoniae Assessment and Plan (1) Pneumonia: Status: Acute (2) Sepsis: Status: Acute (3) Acute on chronic anemia: Status: Acute Plan 76F presented with weakness, cough, diarrhea sepsis present on admission due to UTI, pneumonia recent klebsiella bacteremia from 10/19 continue ceftriaxone Start azithromycin repeated blood culture from 10/24 negative after 48 hours cough medication hypotension due to hypovolemia from diarrhea and low baseline bp improving, not due to sepsis on midodrine diarrhea cdif pcr positive, toxin negative - colonized imodium prn to use vancomycin Daily as prophylaxis acute on chronic anemia Secondary to kidney disease To transfuse a unit of blood with dialysis today Physical deconditioning PT recommended home PT with [facility] ESRD HD renvela nephrology following paroxysmal atrial fibrillation multaq eliquis hypothyroid synthroid mood disorder lamictal clozaril breast cancer tamoxifen chronic hypoxic respiratory failure due to copd on 2L prn home o2, anoro ellipta dvt prophylaxis - eliquis full code reason for continued hospitalization:Still ill appearing, continue close monitoring and iv antibiotics, would await repeat cultures to ensure clearance and atleast 48hrs afebrile, high risk for decompensation to severe sepsis due to comorbitidities of ESRD, copd, Quality Stroke Does the patient have a stroke diagnosis?: No VTE Prior VTE?: No VTE Risk Level:: Medical - moderate - high VTE Device Contraindication: Treatment Not Indicated VTE Drug Contraindication: N/A - Med Ordered
[2021-10-26 10:41] LABS: Prothrombin Time 22.6 SEC (9.9-13.0)
[2021-10-26] MEDS: Benzonatate 100 MG CAPSULE PO ×3 (11:34→20:06)
[2021-10-26] MEDS: Azithromycin 250 MG TABLET PO (11:34)
[2021-10-26] MEDS: guaiFENesin LA 600 MG TAB.ER.12H PO ×2 (11:34→20:14)
[2021-10-26] MEDS: Hydrocortisone 1 % Cream 28.35 GM TUBE 1 APPL TOPICAL (13:51)
[2021-10-26] MEDS: Mineral Oil/Petrolatum,White 106 GM Tube 1 APPL TOPICAL ×2 (15:19→20:16)
[2021-10-26] MEDS: Loratadine 10 MG TABLET PO (15:19)
--- NOTE | 2021-10-26 15:52 | PM.PNNEP ---
Subjective Subjective Date of Service: 10/26/21 Interval history: Seen and examined, events noted Physical Exam Vital Signs: Vital Signs: Last Vital Signs Temp 98.2 F 10/26/21 15:26 Pulse 69 10/26/21 15:26 Resp 19 10/26/21 15:26 BP 103/64 10/26/21 15:26 Pulse Ox 97 10/26/21 15:26 BMI result Body Mass Index 23.3 Const: General: no acute distress and alert Eyes: General: appearance normal, both eyes and all related structures Neck: Neck: Yes supple Resp: Auscultation: clear to auscultation bilaterally Cardio: Jugular venous distension: no JVD Heart sounds: no rubs GI: Auscultation: normal bowel sounds Extrem: General: No cyanosis and No edema Objective Data Labs CBC & Chem 7: 10/26/21 06:42 10/25/21 06:07 Labs: Laboratory Results - last 24 hr 10/26/21 10/26/21 10/26/21 06:42 06:42 10:22 WBC 9.6 RBC 2.19 L Hgb 7.2 L Hct 23.1 L MCV 105.5 H MCH 32.9 MCHC 31.2 RDW 13.5 Plt Count 239 MPV 10.4 Absolute Nucleated RBC 0.020 H Nucleated RBC % (auto) 0.2 PT 22.6 H INR 2.0 H Blood Type O Positive Antibody Screen NEGATIVE Crossmatch See Detail Microbiology Microbiology Results: Microbiology 10/24/21 06:19 Blood - Venous Blood Culture - Preliminary No growth after 48 hours. 10/24/21 06:19 Blood - Venous Blood Culture - Preliminary No growth after 48 hours. 10/19/21 22:28 Blood - Venous Blood Culture - Final Klebsiella pneumoniae 10/19/21 22:28 Blood - Venous Blood Culture - Final No growth after 5 days. 10/20/21 10:45 Stool Stool Culture - Final 10/19/21 Unknown Urine Catheterized - Straight Catheter Urine Culture - Final Klebsiella pneumoniae Procedures Date of Service Date of Service: 10/26/21 Assessment & Plan Assessment and plan (1) Anemia, chronic renal failure: Status: Acute Plan 76-year-old female with a past medical history of? hyperlipidemia, ESRD on hemodialysis, history of breast cancer, hypothyroidism, anxiety, depression, bipolar, history of pulmonary embolism, history of SBO, seizures, COPD presented to the hospital after hemodialysis session with a chief complaint of generalized weakness and cough.? Noted to have findings on the CT scan concerning for pneumonia.? Admitted to the hospital for further management. Episode of CP: resolved ESRD: mwf Anemia: epo as noted GNB w recent ureteral stent: source of infection and doubt Pcath is infected but need to repeat Bld cult Low BPs: cont midrdine REC: cont HD3x/wk; abx as noted, ID eval if repeat bld cult pos; d/c planning; procrit ordered--xfuse today during HD will follow with team Will follow with team Time Spent With Patient Time: Total time spent is greater than 50% in coordination of care (as documented) at patient's floor/unit and/or counseling patient: Progress Note: Quality Stroke Does the patient have a stroke diagnosis?: No
[2021-10-26] MEDS: cefTRIAXone sodium 1 GM in 0.9 % Sodium Chloride 50 ML IV (16:28)
[2021-10-26] MEDS: Tamoxifen Citrate 10 MG TABLET 20 MG PO (16:28)
[2021-10-26] MEDS: Sennosides 8.6 MG TABLET 17.2 MG PO (20:04)
[2021-10-26] MEDS: Melatonin 3 MG TABLET 6 MG PO (20:05)
[2021-10-26] MEDS: lamoTRIgine 25 MG TABLET 75 MG PO (20:06)
[2021-10-26] MEDS: hydrOXYzine HCL 50 MG TABLET PO (20:14)
[2021-10-26] MEDS: cloZAPine 25 MG TABLET 150 MG PO (20:14)
[2021-10-26] MEDS: Acetaminophen 325 MG TABLET 650 MG PO (20:18)
[2021-10-27] VITALS: BP 130/60; PULSE 70; RESP 18; TEMP 36.6; O2SAT 92
[2021-10-27 03:40] VITALS: BP 119/59; PULSE 78; RESP 18; TEMP 36.1; O2SAT 91
[2021-10-27 06:00] VITALS: BMI 23.4
[2021-10-27] MEDS: Levothyroxine Sodium 150 MCG TABLET PO (06:03)
[2021-10-27 07:02] LABS: Neut%MD 67.1 %; Neutrophils Absolute Auto 5.3 x10*3/uL (2.0-8.3)
[2021-10-27 07:14] LABS: Hematocrit 29.4 % (37.0-47.0); Hemoglobin 9.3 g/dl (12.0-16.0); Mean Corpuscular HGB Conc 31.6 g/dl (31.0-35.0); Mean Corpuscular Hemoglobin 31.5 pg (27.0-33.0); Mean Corpuscular Volume 99.7 fL (80.0-98.0); NRBC Pct Auto 0.3 /100WBC (0.0-0.2); Platelet Count 236 X10*3/uL (160-400); Red Blood Count 2.95 X10*6/uL (4.20-5.50); Red Cell Distribution Width 17.6 % (11.0-16.0); White Blood Count 7.9 X10*3/uL (4.8-10.8)
[2021-10-27 08:00] VITALS: BP 112/54; PULSE 77; RESP 20; TEMP 36.6; O2SAT 97
[2021-10-27] MEDS: Albuterol Sulfate (0.083%) 2.5 MG/3 ML VIAL.NEB INHALE (08:21)
[2021-10-27 08:23] VITALS: PULSE 74; RESP 18; O2SAT 94
[2021-10-27] MEDS: Benzonatate 100 MG CAPSULE PO (08:33)
[2021-10-27] MEDS: Sevelamer Carbonate Tablet 800 MG TABLET 1600 MG PO (08:33)
[2021-10-27] MEDS: Apixaban 2.5 MG TABLET PO (08:33)
[2021-10-27] MEDS: guaiFENesin LA 600 MG TAB.ER.12H PO (08:33)
[2021-10-27] MEDS: Dronedarone HCl 400 MG TABLET PO (08:33)
[2021-10-27] MEDS: Acetaminophen 325 MG TABLET 650 MG PO (08:34)
[2021-10-27] MEDS: Midodrine HCl 5 MG TABLET PO ×2 (08:34→10:57)
[2021-10-27] MEDS: vancomycin HCL 125 MG CAPSULE PO (08:35)
[2021-10-27] MEDS: Mineral Oil/Petrolatum,White 106 GM Tube 1 APPL TOPICAL (08:40)
[2021-10-27] MEDS: 0.9 % Sodium Chloride Flush 3 ML SYRINGE IVFLUSH (08:41)
--- NOTE | 2021-10-27 09:44 | MHC.CM.PN ---
PT CLEARED TO DC HOME TODAY AND NOW AGREEABLE TO SERVICES REFERRAL PLACED TO [facility] PER PREFERENCES AND AVAILABILITY PT TO DC HOME TODAY WITH SN AND PT SERVICS [facility] TO TRANSPORT
[2021-10-27] MEDS: Azithromycin 250 MG TABLET PO (10:56)
--- NOTE | 2021-10-27 11:09 | PM.DS ---
DS: Providers Provider Date of Service: 10/27/21 Date of admission: 10/20/21 04:01 Primary care physician: Gabriel Acosta MD Consults: 10/20/21 04:07 Consult to Nephrology Routine Consulting Provider: Héctor Marroquin Reason for consultation: ESRD DS: Diagnosis Discharge Diagnosis (1) Anemia, chronic renal failure: Status: Acute (2) Acute on chronic anemia: Status: Acute (3) Pneumonia: Status: Acute (4) Sepsis: Status: Acute (5) Bacteremia due to Klebsiella pneumoniae: Status: Acute (6) Acute on chronic anemia: Status: Acute DS: Summary Hospital Course Hospital Course: admission note HPI ?76-year-old female with a past medical history of? hyperlipidemia, ESRD on hemodialysis, history of breast cancer, hypothyroidism, anxiety, depression, bipolar, history of pulmonary embolism, history of SBO, seizures, COPD presented to the hospital after hemodialysis session with a chief complaint of generalized weakness and cough. ? Patient reports that she has not been feeling well, has been having cough with no sputum production.? Denies any fevers.? ?patient is a poor historian.? Most of the history obtained from the patient's Neptali.? Per report patient had bladder cancer and has recently had a urological procedure with Dr. Gould in the clinic followed by patient was given nitrofurantoin subsequently patient had multiple episodes of nausea vomiting and diarrhea and unable to give anything down.? Because of the symptoms patient has been feeling generally weak and tired.? Today she had dialysis and given continued generalized weakness patient was requested to go to the ER for further evaluation.? denies any blood in the stool. Per ER team patient noted to be tachycardic, febrile, has leukocytosis.? Also noted to have lactic acidosis.? He blood pressure on the soft side- patient on midodrine at home.? Given concern for severe sepsis patient was given findings is of normal saline.? Unable to give 30 cc/kg of IV fluids given ESRD and concerns for fluid overload.? Patient was given IV antibiotics.? CT chest was done which showed findings concerning for pneumonia / aspiration.? Admitted to the hospital for further management. Hospital course patient who presented to the hospital with picture of sepsis secondary to recently diagnosed Klebsiella bacteremia from 10/19 with source thought to be urine or the lung. Treated with IV ceftriaxone and azithromycin. Repeated cultures at time of admission remain negative. Cough medication was added. Plan to discharge her to finish 3 more days of azithromycin and 7 more days of Ceftin to finish total of 2 weeks of gram-negative coverage. Noted to have hypotension which was persistent and not associated with infection. Started on midodrine after discussing with Nephrology who recommended keeping her on the midodrine at time of discharge and to follow up with Nephrology who will decide about the need of it later. Noticed as well to have diarrhea. cdif pcr positive, toxin negative. Started on daily vancomycin as prophylaxis as the patient on antibiotics. To useimodium prn. Noted to have acute on chronic anemia Secondary to kidney disease. transfused a unit of blood with dialysis with improvement of hemoglobin from 7.1-8.3. Continue dialysis as planned by Nephrology continue azithromycin for 3 days and Ceftin for 7 more days Take vancomycin once daily for the next 7 days To use midodrine twice Daily, follow with Nephrology to decide when to stop it Use cough medication as needed Please come back to the hospital for any worsening fever, abdominal pain or diarrhea Time Spent with Patient Time attestation: Total time spent providing and/or coordinating discharge services: Discharge coordination time: Greater than 30 minutes Quality: Stroke Does the patient have a stroke diagnosis?: No Physical Exam Vital Signs: Vital Signs: Last Vital Signs Temp 97.8 F 10/27/21 08:00 Pulse 74 10/27/21 08:23 Resp 18 10/27/21 08:23 BP 112/54 L 10/27/21 08:00 Pulse Ox 97 10/27/21 08:00 BMI result Body Mass Index 23.4 Const: Other: Constitutional : Alert, interactive, not in distress Neck : Normal inspection, Supple Cardiovascular : RRR, S1 S2, no lower extremity edema Respiratory : Good bilateral air entry, no crackles, wheezes or rhonchi Gastrointestinal: soft, lax, Normal bowel sounds, Non tender Skin : Warm, Dry, line in place with no surrounding erythema Neurological : Alert & oriented to self and place, No focal deficit DS: Data Data Completed and Pending Completed studies during hospitalization [Text1]: Procedures Destruction of Bladder, Via Natural or Artificial Opening Endoscopic (03/21/21) Dilation of Bilateral Ureters with Intraluminal Device, Via Natural or Artificial Opening Endoscopic (03/21/21) Extirpation of Matter from Right Ureter, Via Natural or Artificial Opening Endoscopic (03/21/21) Fluoroscopy of Kidneys, Ureters and Bladder (03/21/21) Performance of Urinary Filtration, Intermittent, Less than 6 Hours Per Day (04/06/21) Labs on day of discharge: Laboratory Results - last 24 hr 10/26/21 10/27/21 10/27/21 06:42 06:41 06:41 WBC 7.9 RBC 2.95 L D Hgb 9.3 L D Hct 29.4 L D MCV 99.7 H D MCH 31.5 MCHC 31.6 RDW 17.6 H Plt Count 236 MPV 10.0 Absolute Neuts (auto) 5.3 Absolute Nucleated RBC 0.020 H Nucleated RBC % (auto) 0.3 H Blood Type O Positive Antibody Screen NEGATIVE Crossmatch See Detail Preliminary micro results at discharge 10/24/21 06:19 Blood Culture - Preliminary Blood - Venous No growth after 48 hours. 10/24/21 06:19 Blood Culture - Preliminary Blood - Venous No growth after 48 hours. Discharge Plan Discharge Patient Disposition: Home Health Service Discharge Diagnosis: sepsis secondary to infection Klebsiella bacteremia Acute on chronic anemia Referrals: [facility] [Outside] - 1 Week Gabriel Acosta MD [Primary Care Provider] - 1 Week Discharge Medications: New vancomycin 125 mg Capsule 125 mg PO DAILY Qty: 7 0RF midodrine 5 mg Tablet 5 mg PO BID Qty: 60 0RF loperamide 2 mg Capsule 2 mg PO Q6H PRN (Reason: diarrhea) Qty: 20 0RF benzonatate 100 mg Capsule 100 mg PO TID Qty: 20 0RF guaifenesin [Mucinex] 600 mg Tablet Extended Release 12hr 600 mg PO BID 7 Days Qty: 14 0RF cefuroxime axetil 500 mg tablet 500 mg PO DAILY Qty: 7 0RF Rx Instructions: 500 mg orally azithromycin 250 mg Tablet 250 mg PO Q24H Qty: 3 0RF Continued hydroxyzine pamoate 50 mg capsule 50 mg PO BEDTIME PRN (Reason: for insomnia) Qty: 90 1RF albuterol sulfate 2.5 mg /3 mL (0.083 %) solution for nebulization 2.5 mg inhalation DAILY 0RF lamotrigine 150 mg tablet 150 mg PO BEDTIME 0RF clonazepam 1 mg tablet 1 mg PO BEDTIME 0RF acetaminophen 325 mg Tablet 650 mg PO BID PRN (Reason: Pain (Scale Score 1-3)) 0RF clozapine 100 mg tablet 150 mg PO BEDTIME 0RF Rx Instructions: 250 sevelamer carbonate 800 mg tablet 1,600 mg PO .BIDWM 0RF melatonin 3 mg Tablet 6 mg PO BEDTIME PRN (Reason: Insomnia) 0RF tamoxifen 20 mg tablet 20 mg PO DAILY@1400 0RF Multaq 400 mg tablet 1 tab PO BID 0RF hydrocortisone 2.5 % cream 1 appl topical BID PRN (Reason: skin irritation) Qty: 20 0RF levothyroxine [Synthroid] 150 mcg tablet 150 mcg PO DAILY Qty: 60 1RF Anoro Ellipta 62.5-25 mcg/actuation blister with device 1 inh inhalation Q24H 90 Days Qty: 3 3RF Eliquis 2.5 mg tablet 15 mg PO BID 0RF Discharge Orders: Discharge Order (Routine); Ordered 10/27/21 Ordered By: Matthew Adorno Diet: advance to usual diet Activity on Discharge: As tolerated Stand Alone Forms: Patient Portal Discharge page Care Plan Goals: Read below Health Concerns: Read below Plan of Treatment: Read below Assessment: you were admitted to the hospital for evaluation of weakness, cough and diarrhea. Found to have concerns of possible pneumonia and urine infection. Recent blood culture was positive for Klebsiella bacteremia which was treated with IV antibiotics with fair response over the course of hospital stay. Your blood pressure was noticed to be running on the lower end and responded well to uses of midodrine. You tested positive for C diff carrier status as the toxin test came back negative. Kept on vancomycin orally to prevent C diff infection. Noticed to have a drop in your hemoglobin level requiring blood transfusion. Evaluated by Physical therapy who recommended home therapy. Continue dialysis as planned by Nephrology continue azithromycin for 3 days and Ceftin for 7 more days Take vancomycin once daily for the next 7 days To use midodrine twice Daily, follow with Nephrology to decide when to stop it Use cough medication as needed Please come back to the hospital for any worsening fever, abdominal pain or diarrhea Discharge Date/Time: 10/27/21 13:28
[2021-10-27 11:36] VITALS: BP 110/55; PULSE 74; RESP 20; TEMP 37.1; O2SAT 92
--- NOTE | 2021-10-30 10:44 | W.MHC.F2F ---
Service Date Service Date: 10/30/21 Encounter Date of encounter: 10/30/21 Reasons for Services Signs and symptoms assessed: physical deconditioning Reason for long-term: medication treatment and teach disease management Reason for physical therapy: home safety and mobility and therapeutic exercises Homebound: Leaving the home is medically contraindicated at this time without the asist of a device and/or another person due th the listed conditions above and below. Reason homebound: unsteady gait / fall risk Certification: Based on the above findings, I certify that this patient is confined to the home and needs intermittent long-term care, physical therapy and/or speech therapy, or continues to need occupational therapy. The patient is under my care, and I have initiated the establishment of the plan of care. The patient will be followed by a physician who will periodically review the plan of care.
[2021-11-01 10:27] LABS: Lamotrigine Lamictal 2.3 mcg/mL (4.0-18.0)
== END 2021-10-27 13:28 | disposition home health service (06) | DRG 871 ==
LOC: HO.ED 10-20 02:21 → HO.EDOVER 10-20 04:15 → HO.IMC 10-20 18:02
PROVIDERS: Internal Medicine; Physician Assistant Medical; Admitting Provider Hospitalist; Emergency Provider Student in an Organized Health Care Education/Training Program; PCP Internal Medicine; Visit Provider Student in an Organized Health Care Education/Training Program
DX: A41.9 Sepsis, unspecified organism (principal); N18.6 End stage renal disease; E87.2 Acidosis; J44.0 Chronic obstructive pulmonary disease with (acute) lower respiratory infection; A04.72 Enterocolitis due to Clostridium difficile, not specified as recurrent; N39.0 Urinary tract infection, site not specified; J96.11 Chronic respiratory failure with hypoxia; R53.1 Weakness; E03.9 Hypothyroidism, unspecified; Z99.2 Dependence on renal dialysis; I48.0 Paroxysmal atrial fibrillation; F31.9 Bipolar disorder, unspecified; E78.5 Hyperlipidemia, unspecified; C50.919 Malignant neoplasm of unspecified site of unspecified female breast; D63.1 Anemia in chronic kidney disease; E86.1 Hypovolemia; Z88.5 Allergy status to narcotic agent; Z99.81 Dependence on supplemental oxygen; Z88.6 Allergy status to analgesic agent; Z79.01 Long term (current) use of anticoagulants; Z79.810 Long term (current) use of selective estrogen receptor modulators (SERMs); Z79.890 Hormone replacement therapy; Z79.899 Other long term (current) drug therapy
CPT/HCPCS: 36415; 71045; 71250; 74176; 80048; 80175; 80202; 81001; 83605; 84443; 84484; 85025; 85027; 85048; 85610; 86850; 86900; 86901; 86923; 87040; 87045; 87046; 87077; 87086; 87088; 87186; 87205; 87324; 87493; 87635; 89055; 90999; 93005; 94640; 96365; 96375; 97162; 99281; 99282; 99285; J0696; J0885; J2405; J2543; J3370; P9016; Q0163

== ENCOUNTER 2021-10-31 21:21 | Inpatient (IN) | payer MEDICARE, BC, SELFPAY ==
--- NOTE | ~2021-10-31 | XR_ITS ---
EXAMINATION: LEFT HAND CLINICAL INFORMATION: Pain COMPARISON: Left hand 06/01/2017 TECHNIQUE: 3 views left hand FINDINGS: Again seen are severe degenerative changes at the first SHELTER joint with narrowing and sclerosis. No fracture is seen. There has been progression of vascular calcification seen since the prior study. Generalized osteopenia is present. No acute fractures are seen. XR/XR hand wrist LT IMPRESSION: Severe degenerative changes first SHELTER joint. No acute fractures
--- NOTE | ~2021-10-31 | XR_ITS ---
EXAMINATION: XR CHEST CLINICAL INFORMATION: Shortness of breath COMPARISON: 10/19/2021 TECHNIQUE: Frontal view of the chest was obtained. FINDINGS: Central venous catheter terminates near the cavoatrial junction. Left axillary vascular stent noted. The lungs are well expanded. Hazy opacities at the mid to lower lungs, left greater than right are again noted. This is similar to prior. No pleural effusion. No pneumothorax. The cardiomediastinal silhouette is unchanged, with a calcified aorta. XR/XR chest 1V IMPRESSION: Similar appearance of bilateral mid to lower lung airspace opacities. This corresponds to the appearance on previous CT and could be infectious/inflammatory. Aspiration possible.
[2021-10-31 21:27] VITALS: BP 92/57; PULSE 99; RESP 16; TEMP 36.2; O2SAT 93; BMI 21.2
[2021-11-01] VITALS (11 sets, daily range): BP systolic 98–171; BP diastolic 51–83; PULSE 67–87; RESP 16–20; TEMP 36.4–36.8; O2SAT 85–98
--- NOTE | 2021-11-01 00:18 | ED.EXTPRO ---
HPI - Extremity Problem General Chief complaint: Extremity Problem Stated complaint: fell on hand, sore Time Seen by Provider: 10/31/21 22:00 Source: patient Mode of arrival: ambulatory Limitations: no limitations History of Present Illness HPI Narrative: This is a 76-year-old female past medical history significant for bladder cancer, anemia presenting to the emergency department with complaints of atraumatic left hand pain that started 2 days ago. Patient placed hand in brace for comfort and tells me that this is helping. She reports pain with ROM of wrist and fingers of left hand. Decreased sensation left fingers per patient. Denies fevers chills, tingling. Denies recent trauma to the area. MD Complaint: extremity pain Onset (ago): day(s) (3) Pain Consistency: constant Location: left Radiation: none Relieving factors: nothing Exacerbating factors: nothing Associated symptoms: denies other symptoms Related Data Home Medications Medication Instructions Recorded Confirmed clonazepam 1 mg tablet 1 mg PO BEDTIME 05/21/20 10/20/21 lamotrigine 150 mg tablet 150 mg PO BEDTIME 05/21/20 10/20/21 acetaminophen 325 mg tablet 650 mg PO BID PRN 05/22/20 10/20/21 clozapine 100 mg tablet 150 mg PO BEDTIME 01/04/21 10/20/21 melatonin 3 mg tablet 6 mg PO BEDTIME PRN 07/15/21 10/20/21 tamoxifen 20 mg tablet 20 mg PO DAILY@1400 07/15/21 10/20/21 apixaban 2.5 mg tablet (Eliquis) 15 mg PO BID 09/03/21 10/20/21 albuterol sulfate 2.5 mg INHALATION DAILY 09/21/21 10/20/21 sevelamer carbonate 800 mg tablet 1,600 mg PO .BIDWM tab 09/27/21 10/20/21 dronedarone 400 mg tablet (Multaq) 1 tab PO BID 10/20/21 10/20/21 Previous Rx's Medication Instructions Recorded umeclidinium 62.5 mcg-vilanterol 1 inh INHALATION Q24H 90 Days #3 ea 09/06/21 25 mcg/actuation powdr for inhalation (Anoro Ellipta) hydroxyzine pamoate 50 mg capsule 50 mg PO BEDTIME PRN #90 cap 09/09/21 hydrocortisone 2.5 % topical cream 1 appl TOPICAL BID PRN #20 g 09/27/21 levothyroxine 150 mcg tablet 150 mcg PO DAILY #60 tab 09/27/21 (Synthroid) azithromycin 250 mg tablet 250 mg PO Q24H #3 tab 10/27/21 benzonatate 100 mg capsule 100 mg PO TID #20 cap 10/27/21 cefuroxime axetil 500 mg tablet 500 mg PO DAILY #7 tab 10/27/21 guaifenesin 600 mg tablet, 600 mg PO BID 7 Days #14 tab 10/27/21 extended release 12 hr (Mucinex) loperamide 2 mg capsule 2 mg PO Q6H PRN #20 cap 10/27/21 midodrine 5 mg tablet 5 mg PO BID #60 tab 10/27/21 vancomycin 125 mg capsule 125 mg PO DAILY #7 cap 10/27/21 Allergies Allergy/AdvReac Type Severity Reaction Status Date / Time adhesive tape Allergy Intermediate Blister Verified 09/27/21 13:53 aspirin Allergy Intermediate RASH Verified 09/27/21 13:53 benztropine Allergy Intermediate RASH Verified 09/27/21 13:53 NSAIDS (Non-Steroidal Allergy Intermediate RASH Verified 09/27/21 13:53 Anti-Inflamma ziprasidone Allergy Intermediate UNKNOWN Verified 09/27/21 13:53 doxycycline AdvReac Vomiting Verified 09/27/21 13:53 oxycodone AdvReac Anaphylaxis Verified 09/27/21 13:53 Review of Systems Review of Systems: Constitutional : No Weight loss, No Fever, No Chills, No Fatigue, No Malaise ENT/Mouth : No sore throat, No Rhinorrhea Eyes: No Eye Pain, No Swelling, No Redness Cardiovascular : No Chest Pain, No SOB, No Dyspnea on Exertion, No Orthopnea, No Edema, No Palpitations Respiratory : No Cough, No Sputum, No Wheezing Gastrointestinal : No Nausea, No Vomiting, No Diarrhea, No Constipation, No abdominal Pain, No Hematochezia, No Melena Genitourinary : No Dysuria, No Urinary Frequency, No Hematuria, Musculoskeletal : + joint pain, No Myalgias, + Joint Swelling Skin : No Skin Lesions, No rash Neuro : No Weakness, No Numbness, No Dizziness, No Headache Psych : No Anxiety/Panic, No Depression All other systems reviewed and are negative Yes all other systems are reviewed and are negative [facility] Past Medical History Attestation statement: The following information was validated with the patient. Source: old records reviewed and nursing notes reviewed Medical History Abdominal pain Acute UTI Arrhythmia Arthritis AV fistula Bipolar 1 disorder Bipolar disorder Bladder cancer Bowel obstruction Breast cancer Bronchopneumonia Cancer Chronic nausea Chronic respiratory failure COPD (chronic obstructive pulmonary disease) COVID-19 vaccine administered Dialysis patient Diarrhea Dysphagia ESRD (end stage renal disease) History of 2019 novel coronavirus disease (COVID-19) Hx of hypotension Hx of radiation therapy Hydronephrosis Hyperkalemia Hypothyroidism Invasive ductal carcinoma of breast Lab test negative for COVID-19 virus Lab test positive for detection of COVID-19 virus Leukocytosis MSSA bacteremia Paroxysmal A-fib Poor appetite Positive FIT (fecal immunochemical test) Pulmonary emboli Renal failure SBO (small bowel obstruction) Seizure SIRS (systemic inflammatory response syndrome) Thyroid disease Ureteral cancer Vomiting Wears dentures Surgical History History of abdominal surgery History of appendectomy History of back surgery History of bladder surgery (~06/2020) History of cholecystectomy History of esophagogastroduodenoscopy (EGD) History of hand surgery History of lumpectomy of left breast History of lumpectomy of right breast History of tonsillectomy Hx of colonoscopy Hx of foot surgery Family History Family History Father Dementia Mother Bipolar 1 disorder Brother Heart attack Other Mental health disorder Social History Social History Household Members: Spouse Housing: House Are you a primary residential caregiver to a significant other at home: No Do you presently have visiting nurse or other home services: No (3 months ago had a visiting nurse) Alcohol intake: never Patient Tobacco Use Status: Former Tobacco user Quit Date: 4 years ago Tobacco use type: Cigarette Cigarette Packs Per Day: 1.5 Cigarettes Per Day: 30.0 Years Smoked: 50 e-Cigarette/Vaping Use: Never Used Second Hand Smoke Exposure: No Advance Directives: Yes Advance Directives on File: Yes Advance Directives Date on File: 01/24/21 service: No Current occupational status: disabled Cognitive needs: Yes (Walker/Wheelchair) Hearing needs: No Vision needs: Yes (readng glasses) Physical Exam Vital Signs: Vital Signs: Last Vital Signs Temp 97.2 F 10/31/21 21:27 Pulse 87 11/01/21 00:19 Resp 18 11/01/21 00:55 BP 125/70 11/01/21 00:19 Pulse Ox 92 11/01/21 00:32 BMI result Body Mass Index 21.2 VSS Appearance: Alert.? Oriented X3.? No acute distress.? Head: Normocephalic, atraumatic, no step-offs or deformities Eyes: Pupils equal, round and reactive to light.? ENT: Pharynx normal.? Neck: Normal inspection.? Neck supple.? CVS: Normal heart rate and rhythm.? Pulses normal.? Respiratory: No respiratory distress.? Breath sounds normal.? Abdomen: Soft and nontender.? Skin: Skin warm and dry.? Normal skin color.? Normal skin turgor.? Extremities: No lower extremity edema.? No calf ttp. 5/5 strength to right upper and b/l lower extremities + decreased range of motion to left hand/wrist/fingers. Pain with wrist flexion and extension on left side. Pain with opposition of all fingers on left side.B/ L radial pulses 2+ equal and bilateral. < 2 seconds capillary refil to all digits. Overlying erythema and calor to left hand/wrist Back: No midline tenderness, no C-spine tenderness, full range of motion, no CVA tenderness bilaterally Neuro: Oriented X 3.? No motor deficit.? No sensory deficit. CN 2-12 intact Course Reevaluation(s) Reevaluation #1: Dr. Edward evaluated patient who agrees with my plan. Time: 00:42 Reevaluation #2: Patient noted to have leukocytosis. Lactic within normal range. No acute electrolyte abnormalities. ESR & CRP elevated. Uric acid normal. Ancef was initiated. She was given fluids. At this time suspicion for septic joint/cellulitis. Patient will likely require an ortho consult. Time: 00:39 Reevaluation #3: At this time patient will be admitted into the hospital for IV antibiotics, and probable ortho consult in the morning.Dr. Murillo will admit patient Time: 02:12 MDM - Extremity (Nontraumatic) MDM Narrative Medical decision making narrative: 0029 76 yo f presents w/ atraumatic left hand swelling and pain with range of motion to left hand/wrist/fingers X 2 days. To note patient is on Eliquis. PE significant for warm, swollen left hand/wrist with pain with range of motion to fingers of left hand, left hand and wrist. W/ overlying errythema and calor. 2+ equal bilateral radial pulses. Capillary refill less than 2 seconds bilaterally. To note, patient was in the hospital from October 20 to October 27 for sepsis secondary to infection, Klebsiella bacteremia and acute on chronic anemia. Unable to rule out septic joint, gout or pseudogout. Unlikely that this is an arterial or venous occlusion. Patient is on blood thinners. Low suspicion. Plan is blood cultures, lactic, basic labs, antibiotics, pain meds, uric acid Medical Records Attestation: I reviewed the patient's medical records. Lab Data Attestation: I reviewed the patient's lab results. Result diagrams: 11/01/21 00:55 11/01/21 00:55 Labs: Lab Results 11/01/21 11/01/21 11/01/21 Range/Units 00:55 00:55 00:55 WBC 11.4 H (4.8-10.8) X10*3/uL RBC 3.73 L D (4.20-5.50) X10*6/uL Hgb 11.3 L D (12.0-16.0) g/dl Hct 36.5 L D (37.0-47.0) % MCV 97.9 (80.0-98.0) fL MCH 30.3 (27.0-33.0) pg MCHC 31.0 (31.0-35.0) g/dl RDW 16.7 H (11.0-16.0) % Plt Count 313 D (160-400) X10*3/uL MPV 9.8 (9.4-12.3) fL Immature Gran % (Auto) 0.5 H (0.0-0.4) % Neut % (Auto) 78.1 H (45-73) % Lymph % (Auto) 8.6 L (20-40) % [place] % (Auto) 9.3 (2-11) % Eos % (Auto) 3.1 (0-4) % Baso % (Auto) 0.4 (0-2) % Lymph # (Auto) 1.0 L (1.2-4.9) X10*3/uL [place] # (Auto) 1.1 (0.1-1.2) X10*3/uL Eos # (Auto) 0.4 (0.0-0.4) X10*3/uL Baso # (Auto) 0.1 (0.0-0.2) X10*3/uL Abs Immat Gran (auto) 0.06 H (0.00-0.03) X10*3/uL Absolute Neuts (auto) 8.9 H (2.0-8.3) x10*3/uL Absolute Nucleated RBC 0.000 (0.0-0.012) X10*3/uL Nucleated RBC % (auto) 0.0 (0.0-0.2) /100WBC ESR (0-20) MM/HR Lactic Acid 1.6 (0.5-2.0) mmol/L COVID-19 ([facility]) Negative (Negative) COVID-19 Clin Com See Note 11/01/21 Range/Units 00:56 WBC (4.8-10.8) X10*3/uL RBC (4.20-5.50) X10*6/uL Hgb (12.0-16.0) g/dl Hct (37.0-47.0) % MCV (80.0-98.0) fL MCH (27.0-33.0) pg MCHC (31.0-35.0) g/dl RDW (11.0-16.0) % Plt Count (160-400) X10*3/uL MPV (9.4-12.3) fL Immature Gran % (Auto) (0.0-0.4) % Neut % (Auto) (45-73) % Lymph % (Auto) (20-40) % [place] % (Auto) (2-11) % Eos % (Auto) (0-4) % Baso % (Auto) (0-2) % Lymph # (Auto) (1.2-4.9) X10*3/uL [place] # (Auto) (0.1-1.2) X10*3/uL Eos # (Auto) (0.0-0.4) X10*3/uL Baso # (Auto) (0.0-0.2) X10*3/uL Abs Immat Gran (auto) (0.00-0.03) X10*3/uL Absolute Neuts (auto) (2.0-8.3) x10*3/uL Absolute Nucleated RBC (0.0-0.012) X10*3/uL Nucleated RBC % (auto) (0.0-0.2) /100WBC ESR 92 H (0-20) MM/HR Lactic Acid (0.5-2.0) mmol/L COVID-19 ([facility]) (Negative) COVID-19 Clin Com Critical Care Time Critical Care Time Critical Care Time: No Discharge Plan Discharge Clinical Impression: Cellulitis, Osteoarthritis, Osteopenia, CKD (chronic kidney disease) Patient Disposition: Admitted As Inpatient Instructions: Osteoarthritis (ED), Bone Density Test (DC) Additional Instructions: Take your medications as prescribed. If you were prescribed antibiotics today, it is important that you take your medication to their entirety, do not skip any doses, do not finish them early. Follow-up with your primary care provider this week. Follow-up with ortho if symptoms do not improve within a week. You can take ibuprofen every 6 hours, Tylenol every 4 as needed for pain. Return to the emergency department with new or worsening symptoms. Such as fevers, chills, chest pain, shortness of breath, nausea, vomiting, dizziness, headache, vision changes, lethargy In case of emergency call 911 Prescriptions: No Action hydroxyzine pamoate 50 mg capsule 50 mg PO BEDTIME PRN (Reason: for insomnia) Qty: 90 1RF albuterol sulfate 2.5 mg /3 mL (0.083 %) solution for nebulization 2.5 mg inhalation DAILY 0RF lamotrigine 150 mg tablet 150 mg PO BEDTIME 0RF clonazepam 1 mg tablet 1 mg PO BEDTIME 0RF acetaminophen 325 mg Tablet 650 mg PO BID PRN (Reason: Pain (Scale Score 1-3)) 0RF clozapine 100 mg tablet 150 mg PO BEDTIME 0RF Rx Instructions: 250 sevelamer carbonate 800 mg tablet 1,600 mg PO .BIDWM 0RF melatonin 3 mg Tablet 6 mg PO BEDTIME PRN (Reason: Insomnia) 0RF tamoxifen 20 mg tablet 20 mg PO DAILY@1400 0RF Multaq 400 mg tablet 1 tab PO BID 0RF vancomycin 125 mg Capsule 125 mg PO DAILY Qty: 7 0RF midodrine 5 mg Tablet 5 mg PO BID Qty: 60 0RF loperamide 2 mg Capsule 2 mg PO Q6H PRN (Reason: diarrhea) Qty: 20 0RF benzonatate 100 mg Capsule 100 mg PO TID Qty: 20 0RF guaifenesin [Mucinex] 600 mg Tablet Extended Release 12hr 600 mg PO BID 7 Days Qty: 14 0RF cefuroxime axetil 500 mg tablet 500 mg PO DAILY Qty: 7 0RF Rx Instructions: 500 mg orally azithromycin 250 mg Tablet 250 mg PO Q24H Qty: 3 0RF hydrocortisone 2.5 % cream 1 appl topical BID PRN (Reason: skin irritation) Qty: 20 0RF levothyroxine [Synthroid] 150 mcg tablet 150 mcg PO DAILY Qty: 60 1RF Anoro Ellipta 62.5-25 mcg/actuation blister with device 1 inh inhalation Q24H 90 Days Qty: 3 3RF Eliquis 2.5 mg tablet 15 mg PO BID 0RF Referrals: Carina Norton MD [Physician] - 1 week Physician,Unknown J [Primary Care Provider] - 2 days Stand Alone Forms: Work/School Release
[2021-11-01] MEDS: HYDROmorphone HCl 1 MG/ML SYRINGE IVPUSH (00:55)
[2021-11-01] MEDS: 0.9 % Sodium Chloride 1,000 ML 999 ML IV (00:57)
[2021-11-01 01:04] LABS: MANUAL DIFF FLAG NO
[2021-11-01 01:05] LABS: Basophils Absolute Auto 0.1 X10*3/uL (0.0-0.2); Basophils Percent Auto 0.4 % (0-2); Eosinophils Absolute Auto 0.4 X10*3/uL (0.0-0.4); Eosinophils Percent Auto 3.1 % (0-4); Hematocrit 36.5 % (37.0-47.0); Hemoglobin 11.3 g/dl (12.0-16.0); Imm Gran Abs Auto 0.06 X10*3/uL (0.00-0.03); Imm Gran Pct Auto 0.5 % (0.0-0.4); Lymphocytes Percent Auto 8.6 % (20-40); Mean Corpuscular Hemoglobin 30.3 pg (27.0-33.0); Mean Corpuscular Volume 97.9 fL (80.0-98.0); Mean Platelet Volume 9.8 fL (9.4-12.3); Monocytes Absolute Auto 1.1 X10*3/uL (0.1-1.2); Monocytes Percent Auto 9.3 % (2-11); Neutrophils Absolute Auto 8.9 x10*3/uL (2.0-8.3); Neutrophils Percent Auto 78.1 % (45-73); Platelet Count 313 X10*3/uL (160-400); Red Blood Count 3.73 X10*6/uL (4.20-5.50); Red Cell Distribution Width 16.7 % (11.0-16.0); White Blood Count 11.4 X10*3/uL (4.8-10.8)
[2021-11-01 01:14] LABS: Lactic Acid 1.6 mmol/L (0.5-2.0)
[2021-11-01 01:19] LABS: COVID-19 Test Negative (Negative)
[2021-11-01 01:42] LABS: Erythrocyte Sedimentation Rate 92 MM/HR (0-20)
[2021-11-01 02:05] LABS: C Reactive Protein 9.42 mg/dL (< or = 0.50); Uric Acid 3.1 mg/dL (2.4-5.7)
[2021-11-01 02:06] LABS: Alanine Aminotransferase 7 U/L (0-31); Albumin Level 3.2 g/dL (3.5-5.0); Alkaline Phosphatase 132 U/L (39-117); Anion Gap 18 (12-20); Aspartate Amino Transferase 6 U/L (5-31); Bilirubin Total 0.2 mg/dL (0.0-1.0); Blood Urea Nitrogen 22 mg/dL (9-16); Calcium 10.3 mg/dL (8.4-10.2); Carbon Dioxide 28 mmol/L (22-29); Chloride 101 mmol/L (96-108); Creatinine Clr Calc Pharmacy 10.3; Estimated Glomerular Filt Rate 11; Glucose Random 116 mg/dL (60-115); Magnesium 2.2 mg/dL (1.6-2.6); Potassium 3.8 mmol/L (3.3-5.1); Sodium 143 mmol/L (135-145); Total Protein 6.6 g/dL (6.5-8.0)
--- NOTE | 2021-11-01 04:29 | PC.NURSE ---
pt being admittd to hospital. Hospitalist in room for eval. pt is a very difficult stick. pt remains alert, complaining of left hand pain. respirations easy, n/l/ will continue to monitor pt
--- NOTE | 2021-11-01 04:39 | PC.NURSE ---
pt c/o pain to left hand. Meds are not verified.
[2021-11-01] MEDS: vancomycin HCL 1,000 MG in 0.9 % Sodium Chloride 250 ML 270 MG IV (05:02)
--- NOTE | 2021-11-01 05:05 | PC.NURSE ---
pt medicated with antibiotics.
--- NOTE | 2021-11-01 05:29 | PM.IMHP ---
History of Present Illness Date of Service: 11/01/21 Chief Complaint: left hand pain and swelling 76-year-old female with a past medical history of hyperlipidemia, ESRD on hemodialysis, breast cancer, hypothyroidism, anxiety, depression, bipolar disorder, history of pulmonary embolism On Eliquis, SBO, seizures, COPD presented to the hospital with chief complaint of left hand pain and swelling. Patient reported that she noted pain and swelling in her left hand for 1 day; limiting her range of motion; denies any fevers; and decided to come to the ER for further evaluation. Patient was recently admitted to the hospital with a chief complaint of pneumonia /Klebsiella bacteremia and was discharged on 10/27/2021 on oral antibiotics. Patient was also on prophylactic p.o. vancomycin for C diff prevention; patient still has few days of antibiotics left; Patient denies any chest pain or palpitations. Denies any GI symptoms. Review of all other systems is negative except mentioned above ER course: Per ER team patient noted to have left dorsum of the hand warm tender and swollen; x-ray showed no acute fluid collection or fracture; given IV antibiotics for possible cellulitis. admitted to the hospital for further management [facility] Medical History Abdominal pain Acute UTI Arrhythmia Arthritis AV fistula Bipolar 1 disorder Bipolar disorder Bladder cancer Bowel obstruction Breast cancer Bronchopneumonia Cancer Chronic nausea Chronic respiratory failure COPD (chronic obstructive pulmonary disease) COVID-19 vaccine administered Dialysis patient Diarrhea Dysphagia ESRD (end stage renal disease) History of 2018 novel coronavirus disease (COVID-19) Hx of hypotension Hx of radiation therapy Hydronephrosis Hyperkalemia Hypothyroidism Invasive ductal carcinoma of breast Lab test negative for COVID-19 virus Lab test positive for detection of COVID-19 virus Leukocytosis MSSA bacteremia Paroxysmal A-fib Poor appetite Positive FIT (fecal immunochemical test) Pulmonary emboli Renal failure SBO (small bowel obstruction) Seizure SIRS (systemic inflammatory response syndrome) Thyroid disease Ureteral cancer Vomiting Wears dentures Family History Father Dementia Mother Bipolar 1 disorder Brother Heart attack Other Mental health disorder Surgical History History of abdominal surgery History of appendectomy History of back surgery History of bladder surgery (~06/2020) History of cholecystectomy History of esophagogastroduodenoscopy (EGD) History of hand surgery History of lumpectomy of left breast History of lumpectomy of right breast History of tonsillectomy Hx of colonoscopy Hx of foot surgery Social History Household Members: Spouse Housing: House Are you a primary caregiver assisted living to a significant other at home: No Do you presently have visiting nurse or other home services: No (3 months ago had a visiting nurse) Alcohol intake: never Patient Tobacco Use Status: Former Tobacco user Quit Date: 4 years ago Tobacco use type: Cigarette Cigarette Packs Per Day: 1.5 Cigarettes Per Day: 30.0 Years Smoked: 50 e-Cigarette/Vaping Use: Never Used Second Hand Smoke Exposure: No Advance Directives: Yes Advance Directives on File: Yes Advance Directives Date on File: 01/24/21 service: No Current occupational status: disabled Cognitive needs: Yes (Walker/Wheelchair) Hearing needs: No Vision needs: Yes (readng glasses) Meds Allergies Allergy/AdvReac Type Severity Reaction Status Date / Time adhesive tape Allergy Intermediate Blister Verified 09/27/21 13:53 aspirin Allergy Intermediate RASH Verified 09/27/21 13:53 benztropine Allergy Intermediate RASH Verified 09/27/21 13:53 NSAIDS (Non-Steroidal Allergy Intermediate RASH Verified 09/27/21 13:53 Anti-Inflamma ziprasidone Allergy Intermediate UNKNOWN Verified 09/27/21 13:53 doxycycline AdvReac Vomiting Verified 09/27/21 13:53 oxycodone AdvReac Anaphylaxis Verified 09/27/21 13:53 Active Medications: Current Medications Acetaminophen (Acetaminophen 325 Mg Tablet) 650 mg PO Q6H PRN PRN Reason: Pain, Mild (Pain Scale 1-3) Acetaminophen (Acetaminophen 325 Mg Tablet) 650 mg PO BID PRN PRN Reason: Pain (Scale Score 1-3) Apixaban (Apixaban 5 Mg Tablet) 15 mg PO BID HERNESTO Azithromycin (Azithromycin 250 Mg Tablet) 250 mg PO Q24H HERNESTO Benzonatate (Benzonatate 100 Mg Capsule) 100 mg PO TID HERNESTO Clonazepam (Clonazepam 1 Mg Tablet) 1 mg PO BEDTIME HERNESTO Dronedarone (Dronedarone Hcl 400 Mg Tablet) 400 mg PO BID HERNESTO Hydroxyzine HCl (Hydroxyzine Hcl 50 Mg Tablet) 50 mg PO BEDTIME PRN PRN Reason: for insomnia Vancomycin HCl 1,000 mg/ (Sodium Chloride) 270 mls @ 270 mls/hr IV Q12H [facility] Lamotrigine (Lamotrigine 25 Mg Tablet) 150 mg PO BEDTIME [facility] Melatonin (Melatonin 3 Mg Tablet) 6 mg PO BEDTIME PRN PRN Reason: Insomnia Non-Formulary Medication (Hydrocortisone) 1 appl TOPICAL BID PRN PRN Reason: skin irritation Pharmacy Consult (Consult Rx Vancomycin Dosing) 1 each MISCELLANE DAILY PRN PRN Reason: Consult order Pharmacy Consult (Consult Rx Vancomycin Dosing) 1 each MISCELLANE DAILY PRN PRN Reason: Consult order Senna (Sennosides 8.6 Mg Tablet) 17.2 mg PO BEDTIME PRN PRN Reason: Constipation Sevelamer Carbonate (Sevelamer Carbonate Tablet 800 Mg Tablet) 1,600 mg PO .BIDWM [facility] Sodium Chloride (0.9 % Sodium Chloride Flush 3 Ml Syringe) 3 ml IVFLUSH QSHIFT [facility] Tamoxifen Citrate (Tamoxifen Citrate 10 Mg Tablet) 20 mg PO DAILY@1400 [facility] Vancomycin HCl (Vancomycin Hcl 125 Mg Capsule) 125 mg PO DAILY [facility] Home Medications Medication Instructions Recorded Confirmed Last Taken Type clonazepam 1 mg tablet 1 mg PO BEDTIME 05/21/20 11/01/21 07/14/21 History lamotrigine 150 mg tablet 150 mg PO BEDTIME 05/21/20 11/01/21 10/18/21 History acetaminophen 325 mg tablet 650 mg PO BID PRN 05/22/20 11/01/21 03/19/21 History tamoxifen 20 mg tablet 20 mg PO DAILY@1400 07/15/21 11/01/21 10/19/21 09:00 History apixaban 2.5 mg tablet (Eliquis) 15 mg PO BID 09/03/21 11/01/21 10/19/21 History 0900 sevelamer carbonate 800 mg tablet 1,600 mg PO .BIDWM tab 09/27/21 11/01/21 Unknown History dronedarone 400 mg tablet (Multaq) 1 tab PO BID 10/20/21 11/01/21 Unknown History Physical Exam Vital Signs and Narrative: Vital Signs: Last Vital Signs Temp 97.2 F 10/31/21 21:27 Pulse 79 03/17/22 04:19 Resp 18 11/01/21 04:19 BP 163/83 H 11/01/21 04:19 Pulse Ox 95 11/01/21 04:19 BMI result Body Mass Index 21.2 Gen: Appears be in no acute distress HEENT: NCAT, Moist mucosa. Pulmonary: Vesicular breath sounds, fair air entry CVS: Normal S1-S2 Abdomen: BS+, Soft, Nontender slight skin excoriation noted on the left buttock, no erythema Extremities: Warm well perfused she: Dorsum of the left hand is warm tender and swollen range of motion limited the wrist and unable to extend the fingers secondary to pain Neuro: Alert and awake. Results Labs CBC and Chem 7: 11/01/21 00:55 11/01/21 01:37 Labs: Laboratory Results - last 24 hr 11/01/21 11/01/21 11/01/21 00:55 00:55 00:55 MCV 97.9 MCH 30.3 MCHC 31.0 RDW 16.7 H Plt Count 313 D MPV 9.8 Immature Gran % (Auto) 0.5 H Neut % (Auto) 78.1 H Lymph % (Auto) 8.6 L [place] % (Auto) 9.3 Eos % (Auto) 3.1 Baso % (Auto) 0.4 Lymph # (Auto) 1.0 L [place] # (Auto) 1.1 Eos # (Auto) 0.4 Baso # (Auto) 0.1 Abs Immat Gran (auto) 0.06 H Absolute Neuts (auto) 8.9 H Absolute Nucleated RBC 0.000 Nucleated RBC % (auto) 0.0 ESR Anion Gap Estim Creat Clear Calc Estimated GFR Random Glucose Lactic Acid 1.6 Uric Acid Calcium Magnesium Total Bilirubin AST ALT Alkaline Phosphatase C-Reactive Protein Total Protein Albumin COVID-19 (PARTH) Negative COVID-19 Clin Com See Note 11/01/21 11/01/21 11/01/21 00:56 01:37 01:37 MCV MCH MCHC RDW Plt Count MPV Immature Gran % (Auto) Neut % (Auto) Lymph % (Auto) [place] % (Auto) Eos % (Auto) Baso % (Auto) Lymph # (Auto) [place] # (Auto) Eos # (Auto) Baso # (Auto) Abs Immat Gran (auto) Absolute Neuts (auto) Absolute Nucleated RBC Nucleated RBC % (auto) ESR 92 H Anion Gap 18 Estim Creat Clear Calc 10.3 Estimated GFR 11 Random Glucose 116 H Lactic Acid Uric Acid 3.1 Calcium 10.3 H D Magnesium 2.2 Total Bilirubin 0.2 AST 6 D ALT 7 Alkaline Phosphatase 132 H C-Reactive Protein 9.42 H Total Protein 6.6 Albumin 3.2 L COVID-19 (PARTH) COVID-19 Clin Com Imaging Radiologist's Impressions: Impressions Hand/Wrist X-Ray 10/31/21 21:48 IMPRESSION: Severe degenerative changes first RESIDENTIAL joint. No acute fractures Chest X-Ray 11/01/21 02:43 IMPRESSION: Similar appearance of bilateral mid to lower lung airspace opacities. This corresponds to the appearance on previous CT and could be infectious/inflammatory. Aspiration possible. Assessment and Plan (1) Cellulitis: Status: Acute (2) Paroxysmal A-fib: Status: Acute Plan 76-year-old female with a past medical history of hyperlipidemia, ESRD on hemodialysis, breast cancer, hypothyroidism, anxiety, depression, bipolar disorder, history of pulmonary embolism On Eliquis, SBO, seizures, COPD presented to the hospital with chief complaint of left hand pain and swelling. admitted for following Left hand dorsum pain and swelling:? Cellulitis. Patient was already on oral antibiotics; no significant erythema noted but warm and tender; mild swelling noted on the dorsum of the left hand limited range of motion of the left wrist and left fingers Pain control X-ray showed no acute fracture or fluid collection Orthopedic consult Empirically cover with vancomycin Id consult Recent history of Klebsiella pneumonia/bacteremia: Patient on Cefuroxime - last dose on 11/03/2021. Finished azithromycin course. Patient was also on p.o. vancomycin empirically, azithromycin. hypotension: Patient had hypotension during the last admission. Patient was empirically started on midodrine. Currently blood pressure on the normal side. Will hold midodrine. ESRD: Patient on hemodialysis. Nephrology consult. Continue home sevelamer History of PE: Continue home Eliquis History of anxiety / depression/ bipolar disorder: Continue home clonazepam, lamotrigine History of breast cancer: Continue home tamoxifen DVT prophylaxis: Patient on Eliquis Code status: Full code Quality Stroke Does the patient have a stroke diagnosis?: No VTE Prior VTE?: No VTE Risk Level:: Medical - moderate - high VTE Device Contraindication: Treatment Not Indicated VTE Drug Contraindication: N/A - Med Ordered
[2021-11-01] MEDS: hydrOXYzine HCL 50 MG TABLET PO (05:41)
[2021-11-01 07:11] LABS: MANUAL DIFF FLAG NO
[2021-11-01 07:13] LABS: Basophils Absolute Auto 0.1 X10*3/uL (0.0-0.2); Basophils Percent Auto 0.6 % (0-2); Eosinophils Absolute Auto 0.4 X10*3/uL (0.0-0.4); Eosinophils Percent Auto 3.8 % (0-4); Hematocrit 32.8 % (37.0-47.0); Hemoglobin 10.1 g/dl (12.0-16.0); Imm Gran Abs Auto 0.04 X10*3/uL (0.00-0.03); Imm Gran Pct Auto 0.4 % (0.0-0.4); Lymphocytes Absolute Auto 1.1 X10*3/uL (1.2-4.9); Mean Corpuscular HGB Conc 30.8 g/dl (31.0-35.0); Mean Corpuscular Hemoglobin 30.6 pg (27.0-33.0); Mean Corpuscular Volume 99.4 fL (80.0-98.0); Mean Platelet Volume 9.7 fL (9.4-12.3); Monocytes Absolute Auto 1.2 X10*3/uL (0.1-1.2); Monocytes Percent Auto 12.1 % (2-11); Neutrophils Absolute Auto 7.1 x10*3/uL (2.0-8.3); Neutrophils Percent Auto 72.1 % (45-73); Platelet Count 264 X10*3/uL (160-400); Red Cell Distribution Width 16.6 % (11.0-16.0); White Blood Count 9.8 X10*3/uL (4.8-10.8)
[2021-11-01] MEDS: Acetaminophen 325 MG TABLET 650 MG PO (07:37)
[2021-11-01] MEDS: 0.9 % Sodium Chloride Flush 3 ML SYRINGE IVFLUSH ×2 (07:37→16:15)
[2021-11-01] MEDS: Apixaban 2.5 MG TABLET PO ×2 (07:38→20:59)
[2021-11-01] MEDS: Sevelamer Carbonate Tablet 800 MG TABLET 1600 MG PO ×2 (07:38→16:14)
[2021-11-01] MEDS: Azithromycin 250 MG TABLET PO (07:38)
[2021-11-01] MEDS: Benzonatate 100 MG CAPSULE PO ×3 (07:38→20:59)
[2021-11-01] MEDS: vancomycin HCL 125 MG CAPSULE PO ×3 (07:38→20:59)
[2021-11-01 07:42] LABS: Anion Gap 16 (12-20); Blood Urea Nitrogen 23 mg/dL (9-16); Calcium 9.8 mg/dL (8.4-10.2); Carbon Dioxide 26 mmol/L (22-29); Chloride 105 mmol/L (96-108); Creatinine Clr Calc Pharmacy 9.9; Estimated Glomerular Filt Rate 11; Glucose Random 84 mg/dL (60-115); Potassium 3.9 mmol/L (3.3-5.1); Sodium 143 mmol/L (135-145)
--- NOTE | 2021-11-01 10:52 | PC.NURSE ---
Addendum entered by Tomasa Rose 11/01/21 12:27: patient seen by [facility] nurse today per documentation (Skin assessment completed. Patient has incontinent skin dermatitis to taniya rectal and left buttocks. Cleansed with All in One and Theodore barrier cream applied to all areas. ) Addendum entered by Enedina Blair RN 11/01/21 10:56: Patient is turned and repositioned q 2 h Original Note: Skin assessment completed. Patient has incontinent skin dermatitis to taniya rectal and left buttocks. Cleansed with All in One and Theodore barrier cream applied to all areas.
--- NOTE | 2021-11-01 11:11 | PHA.MEDREC ---
Pharmacy Consult ? Medication Reconciliation Pharmacy has reviewed the medication reconciliation completed by Nayeli. Medications were missed. Dr. Adorno has notifed about the update. Spoke with patient to confirm medications. Makayla Obregon, BladeD
--- NOTE | 2021-11-01 11:13 | P.CONNP_ITS ---
History of Present Illness Reason for Consult Consult date: 11/01/21 Chief Complaint Chief complaint: Cellulitis History of Present Illness Narrative: 76-year-old female with ESRD on hemodialysis who usually gets HD on MWF presented to hospital with left hand pain and swelling.?Its limiting her range of motion. She denies any fevers. She was seen in the ER for further evaluation.?She denies any chest pain, palpitations, GI or symptoms.?She was admitted for possible cellulitis management. Nephrology has been consulted to assist in her clinical care during her current hospital stay. Review of Systems Review of Systems Yes all other systems are reviewed and are negative [facility] Past Medical History Medical History Abdominal pain Acute UTI Arrhythmia Arthritis AV fistula Bipolar 1 disorder Bipolar disorder Bladder cancer Bowel obstruction Breast cancer Bronchopneumonia Cancer Chronic nausea Chronic respiratory failure COPD (chronic obstructive pulmonary disease) COVID-19 vaccine administered Dialysis patient Diarrhea Dysphagia ESRD (end stage renal disease) History of 2018 novel coronavirus disease (COVID-19) Hx of hypotension Hx of radiation therapy Hydronephrosis Hyperkalemia Hypothyroidism Invasive ductal carcinoma of breast Lab test negative for COVID-19 virus Lab test positive for detection of COVID-19 virus Leukocytosis MSSA bacteremia Paroxysmal A-fib Poor appetite Positive FIT (fecal immunochemical test) Pulmonary emboli Renal failure SBO (small bowel obstruction) Seizure SIRS (systemic inflammatory response syndrome) Thyroid disease Ureteral cancer Vomiting Wears dentures Family History Family History Father Dementia Mother Bipolar 1 disorder Brother Heart attack Other Mental health disorder Surgical History Surgical History History of abdominal surgery History of appendectomy History of back surgery History of bladder surgery (~06/2020) History of cholecystectomy History of esophagogastroduodenoscopy (EGD) History of hand surgery History of lumpectomy of left breast History of lumpectomy of right breast History of tonsillectomy Hx of colonoscopy Hx of foot surgery Social History Social History Household Members: Significant Other Housing: House Are you a primary career development counselor to a significant other at home: No Do you presently have visiting nurse or other home services: Yes Alcohol intake: never Patient Tobacco Use Status: Former Tobacco user Quit Date: 4 years ago Tobacco use type: Cigarette Cigarette Packs Per Day: 1.5 Cigarettes Per Day: 30.0 Years Smoked: 50 e-Cigarette/Vaping Use: Never Used Second Hand Smoke Exposure: No Use of substances other than those prescribed or required for medical reasons: No Currently Displaying Signs/Symptoms of Drug Intoxication Withdrawal: No Have you been hit, kicked, punched, or otherwise hurt by someone within the past year? If so, by whom?: No Do you feel safe in your current relationship?: Yes Is there a partner from a previous relationship who is making you feel unsafe now?: No Are you made to feel afraid or neglected: No Advance Directives: Yes Advance Directives on File: Yes Advance Directives Date on File: 01/24/21 Do you have thoughts of harming others: None Do you have a plan to hurt others: No Plan Recently lost weight without trying: No How much weight loss: Not applicable Eating poorly because of decreased appetite: No Nutrition screen score: 0 Nutrition Risks: No Nutritional Risk Patient : No : No Poor oral hygiene: No service: No Current occupational status: disabled Cognitive needs: Yes (Walker/Wheelchair) Hearing needs: No Vision needs: Yes (readng glasses) Meds Allergies Allergy/AdvReac Type Severity Reaction Status Date / Time adhesive tape Allergy Intermediate Blister Verified 09/27/21 13:53 aspirin Allergy Intermediate RASH Verified 09/27/21 13:53 benztropine Allergy Intermediate RASH Verified 09/27/21 13:53 NSAIDS (Non-Steroidal Allergy Intermediate RASH Verified 09/27/21 13:53 Anti-Inflamma ziprasidone Allergy Intermediate UNKNOWN Verified 09/27/21 13:53 doxycycline AdvReac Vomiting Verified 09/27/21 13:53 oxycodone AdvReac Anaphylaxis Verified 09/27/21 13:53 Active Medications: Current Medications Acetaminophen (Acetaminophen 325 Mg Tablet) 650 mg PO Q6H PRN PRN Reason: Pain, Mild (Pain Scale 1-3) Last Admin: 11/01/21 07:37 Dose: 650 mg Documented by: Apixaban (Apixaban 2.5 Mg Tablet) 2.5 mg PO BID HERNESTO Last Admin: 11/01/21 07:38 Dose: 2.5 mg Documented by: Azithromycin (Azithromycin 250 Mg Tablet) 250 mg PO Q24H [facility] Last Admin: 11/01/21 07:38 Dose: 250 mg Documented by: Benzonatate (Benzonatate 100 Mg Capsule) 100 mg PO TID [facility] Last Admin: 11/01/21 07:38 Dose: 100 mg Documented by: Clonazepam (Clonazepam 1 Mg Tablet) 1 mg PO BEDTIME [facility] Dronedarone (Dronedarone Hcl 400 Mg Tablet) 400 mg PO BIDWM [facility] Last Admin: 11/01/21 07:31 Dose: Not Given Documented by: Hydrocortisone (Hydrocortisone 1 % Cream 28.35 Gm Tube) 1 appl TOPICAL BID PRN PRN Reason: skin irritation Hydroxyzine HCl (Hydroxyzine Hcl 50 Mg Tablet) 50 mg PO BEDTIME PRN PRN Reason: for insomnia Last Admin: 11/01/21 05:41 Dose: 50 mg Documented by: Lamotrigine (Lamotrigine 25 Mg Tablet) 50 mg PO BEDTIME HERNESTO Lamotrigine (Lamotrigine 100 Mg Tablet) 100 mg PO BEDTIME [facility] Melatonin (Melatonin 3 Mg Tablet) 6 mg PO BEDTIME PRN PRN Reason: Insomnia Morphine Sulfate (Morphine Sulfate 2 Mg/Ml Cartridge) 2 mg IVPUSH Q6H PRN; Protocol PRN Reason: Pain, Severe (Pain Scale 7-10) Pharmacy Consult (Consult Rx Vancomycin Dosing) 1 each MISCELLANE DAILY PRN PRN Reason: Consult order Senna (Sennosides 8.6 Mg Tablet) 17.2 mg PO BEDTIME PRN PRN Reason: Constipation Sevelamer Carbonate (Sevelamer Carbonate Tablet 800 Mg Tablet) 1,600 mg PO BIDWM [facility] Last Admin: 11/01/21 07:38 Dose: 1,600 mg Documented by: Sodium Chloride (0.9 % Sodium Chloride Flush 3 Ml Syringe) 3 ml IVFLUSH QSHIFT [facility] Last Admin: 11/01/21 07:37 Dose: 3 ml Documented by: Tamoxifen Citrate (Tamoxifen Citrate 10 Mg Tablet) 20 mg PO DAILY@1400 [facility] Vancomycin HCl (Vancomycin Hcl 125 Mg Capsule) 125 mg PO Q6H [facility] Home Medications Medication Instructions Recorded Confirmed Last Taken Type clonazepam 1 mg tablet 1 mg PO BEDTIME 05/21/20 11/01/21 07/14/21 History lamotrigine 150 mg tablet 150 mg PO BEDTIME 05/21/20 11/01/21 10/18/21 History acetaminophen 325 mg tablet 650 mg PO BID PRN 05/22/20 11/01/21 03/19/21 History tamoxifen 20 mg tablet 20 mg PO DAILY@1400 07/15/21 11/01/21 10/19/21 09:00 History apixaban 2.5 mg tablet (Eliquis) 2.5 mg PO BID 09/03/21 11/01/21 10/19/21 History 0900 sevelamer carbonate 800 mg tablet 1,600 mg PO TIDWM tab 09/27/21 11/01/21 Unknown History dronedarone 400 mg tablet (Multaq) 1 tab PO BID 10/20/21 11/01/21 Unknown History albuterol sulfate 90 mcg/actuation 2 puff INHALATION Q4-6H PRN 11/01/21 11/01/21 Unknown History aerosol inhaler clozapine 100 mg tablet 2.5 tab PO BEDTIME 11/01/21 11/01/21 Unknown History levothyroxine 150 mcg tablet 1 tab PO DAILY 11/01/21 11/01/21 Unknown History melatonin 3 mg tablet 6 mg PO DAILY PRN 11/01/21 11/01/21 Unknown History umeclidinium 62.5 mcg-vilanterol 1 puff INHALATION DAILY 11/01/21 11/01/21 Unkn own History 25 mcg/actuation powdr for inhalation (Anoro Ellipta) Physical Exam Vital Signs: Last Vital Signs Temp 98 F 11/01/21 07:25 Pulse 86 11/01/21 07:25 Resp 20 11/01/21 07:25 BP 111/55 L 11/01/21 07:25 Pulse Ox 97 11/01/21 07:25 BMI result Body Mass Index 21.2 Const General: no acute distress Eyes EOM: EOMs intact bilaterally Neck Neck: Yes supple Chest Other: Permcath + Resp Auscultation: diminished lung sounds Cardio Rate: regular rate GI Palpation (GI): Soft to palpation Neuro General: moves all extremities Results Lab Results Result Diagrams: 11/01/21 07:07 11/01/21 07:07 Lab results: Chemistry 11/01/21 11/01/21 01:37 07:07 Sodium 143 143 Potassium 3.8 3.9 Carbon Dioxide 28 26 BUN 22 H 23 H Creatinine 3.95 H 4.08 H* Calcium 10.3 H D 9.8 Hematology 11/01/21 11/01/21 00:55 07:07 WBC 11.4 H 9.8 Hgb 11.3 L D 10.1 L Plt Count 313 D 264 Assessment and Plan (1) ESRD (end stage renal disease) on dialysis: Status: Acute Plan Usually gets HD on MWF( ordered for tomorrow) ID needs to see patient; Received Vanco IV in ER Renal Diet ( 2 Gm K/2 Gm Na/Phos restricted) Fluid restriction 1.5 L/ 24 hours Phos binders with meals; Hb is over 10 C/W rest of current management Shall closely follow up Procedures Date of Service Date of Service: 11/01/21
--- NOTE | 2021-11-01 12:14 | MHC.CM.PN ---
Addendum entered by Tomasa Rose 11/01/21 12:46: Skin assessment completed. by wound nurse ( Patient has incontinent skin dermatitis to taniya rectal and left buttocks. Cleansed with All in One and Theodore barrier cream applied to all areas. 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 she is able tomloliet with her to help transfer with gsite belt. recently she had been wering briefs. he has ashower chair and commode and shoewwr rails for her . she attends [facility] [address] [address] m-w-f 1630 to 21;30 and her provides transportation she is active with the [facility] and had visit this past friday , she did recive her dialysis on friday and will have it here [facility] tomorrow . he has no other cre takers to assist him educated about [facility] care for which he is aware of their services but does not feel the need for them at this time. discharge plan home with and resumtpion of her vna services resumntion of her hemod[place] [facility] [place]-21;30 transpotation by medicare immm given 11/01/21 hcp on uploaded to [facility] dr maría pearson in [facility]
[2021-11-01] MEDS: Morphine Sulfate 2 MG/ML CARTRIDGE IVPUSH (13:10)
[2021-11-01] MEDS: Tamoxifen Citrate 10 MG TABLET 20 MG PO (13:10)
[2021-11-01 14:57] LABS: CDiff Gene PCR POSITIVE (Negative)
[2021-11-01 16:08] LABS: CDiff Toxin Negative (Negative)
[2021-11-01 16:09] LABS: CDIFF Internal ctrl Dots and bkg OK (V)
[2021-11-01] MEDS: Dronedarone HCl 400 MG TABLET PO (16:14)
[2021-11-01] MEDS: lamoTRIgine 25 MG TABLET 50 MG PO (20:58)
[2021-11-01] MEDS: cloZAPine 100 MG TABLET 250 MG PO (20:58)
[2021-11-01] MEDS: lamoTRIgine 100 MG TABLET PO (20:59)
[2021-11-01] MEDS: clonazePAM 1 MG TABLET PO (20:59)
[2021-11-02] MEDS: vancomycin HCL 125 MG CAPSULE PO (03:49)
[2021-11-02] MEDS: 0.9 % Sodium Chloride Flush 3 ML SYRINGE IVFLUSH ×2 (03:49→09:42)
[2021-11-02] MEDS: Levothyroxine Sodium 150 MCG TABLET PO (03:49)
[2021-11-02 07:54] LABS: Vancomycin Random 17.7 mcg/mL (15-20)
--- NOTE | 2021-11-02 08:01 | P.CONOP_ITS ---
History of Present Illness HPI Consult date: 11/01/21 Chief complaint: Cellulitis Narrative: This is a 76-year-old female who presented to the emergency department with worsening pain of the left wrist. She denies injury or any type of laceration. She was previously hospitalized for pneumonia. She was discharged on antibiotics. While in the emergency department she was admitted to the hospital service for IV antibiotics and ortho was consulted for left wrist pain. Review of Systems Review of Systems: Per [facility] Past Medical History Medical History Abdominal pain Acute UTI Arrhythmia Arthritis AV fistula Bipolar 1 disorder Bipolar disorder Bladder cancer Bowel obstruction Breast cancer Bronchopneumonia Cancer Chronic nausea Chronic respiratory failure COPD (chronic obstructive pulmonary disease) COVID-19 vaccine administered Dialysis patient Diarrhea Dysphagia ESRD (end stage renal disease) History of 2018 novel coronavirus disease (COVID-19) Hx of hypotension Hx of radiation therapy Hydronephrosis Hyperkalemia Hypothyroidism Invasive ductal carcinoma of breast Lab test negative for COVID-19 virus Lab test positive for detection of COVID-19 virus Leukocytosis MSSA bacteremia Paroxysmal A-fib Poor appetite Positive FIT (fecal immunochemical test) Pulmonary emboli Renal failure SBO (small bowel obstruction) Seizure SIRS (systemic inflammatory response syndrome) Thyroid disease Ureteral cancer Vomiting Wears dentures Family History Family History Father Dementia Mother Bipolar 1 disorder Brother Heart attack Other Mental health disorder Surgical History Surgical History History of abdominal surgery History of appendectomy History of back surgery History of bladder surgery (~06/2020) History of cholecystectomy History of esophagogastroduodenoscopy (EGD) History of hand surgery History of lumpectomy of left breast History of lumpectomy of right breast History of tonsillectomy Hx of colonoscopy Hx of foot surgery Social History Social History Household Members: Significant Other Housing: House Are you a primary daycare director to a significant other at home: No Do you presently have visiting nurse or other home services: Yes Alcohol intake: never Patient Tobacco Use Status: Former Tobacco user Quit Date: 4 years ago Tobacco use type: Cigarette Cigarette Packs Per Day: 1.5 Cigarettes Per Day: 30.0 Years Smoked: 50 e-Cigarette/Vaping Use: Never Used Second Hand Smoke Exposure: No Use of substances other than those prescribed or required for medical reasons: No Currently Displaying Signs/Symptoms of Drug Intoxication Withdrawal: No Have you been hit, kicked, punched, or otherwise hurt by someone within the past year? If so, by whom?: No Do you feel safe in your current relationship?: Yes Is there a partner from a previous relationship who is making you feel unsafe now?: No Are you made to feel afraid or neglected: No Advance Directives: Yes Advance Directives on File: Yes Advance Directives Date on File: 01/24/21 Do you have thoughts of harming others: None Do you have a plan to hurt others: No Plan Recently lost weight without trying: No How much weight loss: Not applicable Eating poorly because of decreased appetite: No Nutrition screen score: 0 Nutrition Risks: No Nutritional Risk Patient : No : No Poor oral hygiene: No service: No Current occupational status: disabled Cognitive needs: Yes (Walker/Wheelchair) Hearing needs: No Vision needs: Yes (readng glasses) Meds Allergies Allergy/AdvReac Type Severity Reaction Status Date / Time adhesive tape Allergy Intermediate Blister Verified 09/27/21 13:53 aspirin Allergy Intermediate RASH Verified 09/27/21 13:53 benztropine Allergy Intermediate RASH Verified 09/27/21 13:53 NSAIDS (Non-Steroidal Allergy Intermediate RASH Verified 09/27/21 13:53 Anti-Inflamma ziprasidone Allergy Intermediate UNKNOWN Verified 09/27/21 13:53 doxycycline AdvReac Vomiting Verified 09/27/21 13:53 oxycodone AdvReac Anaphylaxis Verified 09/27/21 13:53 Active Medications: Current Medications Acetaminophen (Acetaminophen 325 Mg Tablet) 650 mg PO Q6H PRN PRN Reason: Pain, Mild (Pain Scale 1-3) Last Admin: 11/01/21 07:37 Dose: 650 mg Documented by: Albuterol Sulfate (Albuterol Sulfate 90 Mcg 8 Gm Inhaler) 2 puff INHALE Q4H PRN PRN Reason: Wheezing Apixaban (Apixaban 2.5 Mg Tablet) 2.5 mg PO BID HERNESTO Last Admin: 11/01/21 20:59 Dose: 2.5 mg Documented by: Azithromycin (Azithromycin 250 Mg Tablet) 250 mg PO Q24H [facility] Last Admin: 11/01/21 07:38 Dose: 250 mg Documented by: Benzonatate (Benzonatate 100 Mg Capsule) 100 mg PO TID [facility] Last Admin: 11/01/21 20:59 Dose: 100 mg Documented by: Clonazepam (Clonazepam 1 Mg Tablet) 1 mg PO BEDTIME [facility] Last Admin: 11/01/21 20:59 Dose: 1 mg Documented by: Clozapine (Clozapine 100 Mg Tablet) 250 mg PO BEDTIME [facility] Last Admin: 11/01/21 20:58 Dose: 250 mg Documented by: Dronedarone (Dronedarone Hcl 400 Mg Tablet) 400 mg PO BIDWM [facility] Last Admin: 11/01/21 16:14 Dose: 400 mg Documented by: Heparin Sodium (Porcine) (Heparin Sodium,Porcine 5,000 Unit/Ml Vial) 5,000 unit INTRACATH MOWEFR@1645 [facility] Hydrocortisone (Hydrocortisone 1 % Cream 28.35 Gm Tube) 1 appl TOPICAL BID PRN PRN Reason: skin irritation Hydroxyzine HCl (Hydroxyzine Hcl 50 Mg Tablet) 50 mg PO BEDTIME PRN PRN Reason: for insomnia Last Admin: 11/01/21 05:41 Dose: 50 mg Documented by: Vancomycin HCl 750 mg/ Sodium (Chloride) 265 mls @ 265 mls/hr IV MOWEFR@1645 [facility] Lamotrigine (Lamotrigine 25 Mg Tablet) 50 mg PO BEDTIME [facility] Last Admin: 11/01/21 20:58 Dose: 50 mg Documented by: Lamotrigine (Lamotrigine 100 Mg Tablet) 100 mg PO BEDTIME [facility] Last Admin: 11/01/21 20:59 Dose: 100 mg Documented by: Levothyroxine Sodium (Levothyroxine Sodium 150 Mcg Tablet) 150 mcg PO DAILY@0600 [facility] Last Admin: 11/02/21 03:49 Dose: 150 mcg Documented by: Melatonin (Melatonin 3 Mg Tablet) 6 mg PO BEDTIME PRN PRN Reason: Insomnia Melatonin (Melatonin 3 Mg Tablet) 6 mg PO DAILY PRN PRN Reason: Insomnia Morphine Sulfate (Morphine Sulfate 2 Mg/Ml Cartridge) 2 mg IVPUSH Q6H PRN; Protocol PRN Reason: Pain, Severe (Pain Scale 7-10) Last Admin: 11/01/21 13:10 Dose: 2 mg Documented by: Pharmacy Consult (Consult Rx Vancomycin Dosing) 1 each MISCELLANE DAILY PRN PRN Reason: Consult order Senna (Sennosides 8.6 Mg Tablet) 17.2 mg PO BEDTIME PRN PRN Reason: Constipation Sevelamer Carbonate (Sevelamer Carbonate Tablet 800 Mg Tablet) 1,600 mg PO BIDWM [facility] Last Admin: 11/01/21 16:14 Dose: 1,600 mg Documented by: Sodium Chloride (0.9 % Sodium Chloride Flush 3 Ml Syringe) 3 ml IVFLUSH QSHIFT [facility] Last Admin: 11/02/21 03:49 Dose: 3 ml Documented by: Tamoxifen Citrate (Tamoxifen Citrate 10 Mg Tablet) 20 mg PO DAILY@1400 [facility] Last Admin: 11/01/21 13:10 Dose: 20 mg Documented by: Vancomycin HCl (Vancomycin Hcl 125 Mg Capsule) 125 mg PO Q6H [facility] Last Admin: 11/02/21 03:49 Dose: 125 mg Documented by: Home Medications Medication Instructions Recorded Confirmed Last Taken Type clonazepam 1 mg tablet 1 mg PO BEDTIME 05/21/20 11/01/21 07/14/21 History lamotrigine 150 mg tablet 150 mg PO BEDTIME 05/21/20 11/01/21 10/18/21 History acetaminophen 325 mg tablet 650 mg PO BID PRN 05/22/20 11/01/21 03/19/21 History tamoxifen 20 mg tablet 20 mg PO DAILY@1400 07/15/21 11/01/21 10/19/21 09:00 History apixaban 2.5 mg tablet (Eliquis) 2.5 mg PO BID 09/03/21 11/01/21 10/19/21 History 0900 sevelamer carbonate 800 mg tablet 1,600 mg PO TIDWM tab 09/27/21 11/01/21 Unknown History dronedarone 400 mg tablet (Multaq) 1 tab PO BID 10/20/21 11/01/21 Unknown History albuterol sulfate 90 mcg/actuation 2 puff INHALATION Q4-6H PRN 11/01/21 11/01/21 Unknown History aerosol inhaler clozapine 100 mg tablet 2.5 tab PO BEDTIME 11/01/21 11/01/21 Unknown History levothyroxine 150 mcg tablet 1 tab PO DAILY 11/01/21 11/01/21 Unknown History melatonin 3 mg tablet 6 mg PO DAILY PRN 11/01/21 11/01/21 Unknown History umeclidinium 62.5 mcg-vilanterol 1 puff INHALATION DAILY 11/01/21 11/01/21 Unknown History 25 mcg/actuation powdr for inhalation (Anoro Ellipta) Physical Exam Vital Signs: Vital Signs: Last Vital Signs Temp 97.6 F 11/01/21 23:34 Pulse 76 11/01/21 23:34 Resp 20 11/01/21 23:34 BP 130/59 L 11/01/21 23:34 Pulse Ox 98 11/01/21 23:34 BMI result Body Mass Index 21.2 Const: General: cooperative, comfortable and no acute distress Extrem: Other: Left wrist is normal to inspection she does have some redness and swelling over the distal radius. She has full ability to extend and flex all digits. There is no pain in the thenar aspect of the palm. She has no pain redness or abscess formation in the deep web spaces of the palm. There is some significant tenderness to palpation. She has no pain with axial loading of the left thumb but there is tenderness at the CMC joint. She does have some pain with axial loading of the wrist but there is no fluctuance. Neurovascularly intact. X-rays of the left wrist obtained show arthritis of the CMC joint. Results Labs Result Diagrams: 11/01/21 07:07 11/01/21 07:07 Labs: Abnormal lab results 11/01/21 Range/Units 13:27 C. difficile Tox B Gene POSITIVE A* (Negative) H & H 11/01/21 11/01/21 Range/Units 00:55 07:07 Hgb 11.3 L D 10.1 L (12.0-16.0) g/dl Hct 36.5 L D 32.8 L (37.0-47.0) % All other labs normal. Assessment and Plan (1) Cellulitis: Status: Acute Plan At this time I would recommend continued IV antibiotics over the next 12-24 hours for re-evaluation to see if her symptoms have improved or not. No surgical intervention at this time. Procedures Date of Service Date of Service: 11/01/21
[2021-11-02 08:07] VITALS: BP 92/46; PULSE 64; RESP 18; TEMP 36.2; O2SAT 99
--- NOTE | 2021-11-02 08:47 | PM.EVENT ---
Event Note Date of Service: 11/02/21 Event Note: Attempted to evaluate the patient this morning. The patient was sleeping and was unable to stay awake for the exam. Redness looks slightly better. Patient still has pain with any motion of the wrist. No tenderness to palpation of the carpals or metacarpals. Unable to have to patient perform ROM. Will attempt repeat exam later today.
[2021-11-02] MEDS: Sevelamer Carbonate Tablet 800 MG TABLET 1600 MG PO (09:39)
[2021-11-02] MEDS: Benzonatate 100 MG CAPSULE PO ×2 (09:39→14:10)
[2021-11-02] MEDS: Apixaban 2.5 MG TABLET PO (09:40)
[2021-11-02] MEDS: Dronedarone HCl 400 MG TABLET PO (09:40)
[2021-11-02] MEDS: Hydrocortisone 1 % Cream 28.35 GM TUBE 1 APPL TOPICAL (09:56)
[2021-11-02 10:00] VITALS: O2SAT 93
--- NOTE | 2021-11-02 10:48 | P.DS_ITS ---
DS: Providers Provider Date of Service: 11/02/21 Date of admission: 11/01/21 04:27 Primary care physician: Gabriel Acsota MD Consults: 11/01/21 05:28 Consult to Orthopedics Routine Consulting Provider: Choco Murdock Reason for consultation: cellulitis; ?tenosinuvitis 11/01/21 05:32 Consult to Nephrology Routine Consulting Provider: Héctor Marroquin Reason for consultation: ESRD DS: Diagnosis Discharge Diagnosis (1) Cellulitis: Status: Acute DS: Summary Hospital Course Hospital Course: From initial HPI: Chief Complaint:? left hand pain and swelling ?76-year-old female with a past medical history of hyperlipidemia, ESRD on hemodialysis, breast cancer, hypothyroidism, anxiety, depression, bipolar disorder, history of pulmonary embolism? On Eliquis, SBO, seizures, COPD presented to the hospital with chief complaint of left hand pain and swelling.? Patient reported that she noted pain and swelling in her left hand for 1 day; limiting her range of motion; denies any fevers; and decided to come to the ER for further evaluation.? Patient was recently admitted to the hospital with a chief complaint of pneumonia /Klebsiella bacteremia and was discharged on 10/27/2021 on oral antibi otics.? Patient was also on prophylactic p.o. vancomycin for C diff prevention; patient still has few days of antibiotics left; Patient denies any chest pain or palpitations.? Denies any GI symptoms.? Review of all other systems is negative except mentioned above ER course: Per ER team patient noted to have left dorsum of the hand warm tender and swollen; x-ray showed no acute fluid collection or fracture; given IV antibiotics for possible cellulitis. admitted to the hospital for further management Hospital course: Patient was admitted for suspected left hand cellulitis, however, clinical picture is more consistent with inflammatory arthritis as patient has no evidence of sepsis, did not improve with antibiotics, and has been on antibiotics at home. Blood cultures are negative. She will be discharged on prednisone taper 40 mg daily for 5 days then 20 mg daily for 5 days. For end-stage renal disease she was continuing on dialysis For history of PE she was continued on Eliquis For history of mood disorder she was continued on clonazepam and lamotrigine For history of breast cancer she was continued on tamoxifen Time Spent with Patient Time attestation: Total time spent providing and/or coordinating discharge services: Discharge coordination time: Greater than 30 minutes Quality: Stroke Does the patient have a stroke diagnosis?: No Physical Exam Vital Signs: Vital Signs: Last Vital Signs Temp 97.2 F 11/02/21 08:07 Pulse 64 11/02/21 08:07 Resp 18 11/02/21 08:07 BP 92/46 L 11/02/21 08:07 Pulse Ox 93 11/02/21 10:00 BMI result Body Mass Index 21.2 Const General:?cooperative, comfortable and no acute distress Extrem Other: Left wrist is normal to inspection she does have some redness and swelling over the distal radius.? She has full ability to extend and flex all digits.? There is no pain in the thenar aspect of the palm.? She has no pain redness or abscess formation in the deep web spaces of the palm.? There is some significant tenderness to palpation.? She has no pain with axial loading of the left thumb but there is tenderness at the CMC joint.? She does have some pain with axial loading of the wrist but there is no fluctuance.? Neurovascularly intact. X-rays of the left wrist obtained show arthritis of the CMC joint. DS: Data Data Completed and Pending Completed studies during hospitalization [Text1]: Procedures Destruction of Bladder, Via Natural or Artificial Opening Endoscopic (03/21/21) Dilation of Bilateral Ureters with Intraluminal Device, Via Natural or Artificial Opening Endoscopic (03/21/21) Extirpation of Matter from Right Ureter, Via Natural or Artificial Opening Endoscopic (03/21/21) Fluoroscopy of Kidneys, Ureters and Bladder (03/21/21) Performance of Urinary Filtration, Intermittent, Less than 6 Hours Per Day (10/20/21) Transfusion of Nonautologous Red Blood Cells into Peripheral Vein, Percutaneous Approach (10/20/21) Labs on day of discharge: Laboratory Results - last 24 hr 11/01/21 11/02/21 13:27 07:15 Random Vancomycin 17.7 C. difficile Tox B Gene POSITIVE A* C. difficile Toxin A&B Negative C. difficile Interpret SEE NOTE Preliminary micro results at discharge 11/01/21 00:56 Blood Culture - Preliminary Blood - Venous No growth after 24 hours. 11/01/21 00:56 Blood Culture - Preliminary Blood - Venous No growth after 24 hours. Discharge Plan Discharge Patient Disposition: Home, Self-Care Discharge Diagnosis: inflammatory arthritis Referrals: caregivers plus [Other] - 1 Day (resumption of services for nursing resumption of [facility](m-w-f 16:30-21:30 transports) transportation self reusmption of her mental health counsleing services ) Carina Norton MD [Physician] - 1 week Physician,Unknown J [Physician] - 2 days Discharge Medications: New prednisone 20 mg Tablet 40 mg PO DAILY Qty: 15 0RF Rx Instructions: 40mg for 5 days then 20mg daily for 5 days Continued hydroxyzine pamoate 50 mg capsule 50 mg PO BEDTIME PRN (Reason: for insomnia) Qty: 90 1RF lamotrigine 150 mg tablet 150 mg PO BEDTIME 0RF clonazepam 1 mg tablet 1 mg PO BEDTIME 0RF acetaminophen 325 mg Tablet 650 mg PO BID PRN (Reason: Pain (Scale Score 1-3)) 0RF sevelamer carbonate 800 mg tablet 1,600 mg PO TIDWM 0RF tamoxifen 20 mg tablet 20 mg PO DAILY@1400 0RF Multaq 400 mg tablet 1 tab PO BID 0RF midodrine 5 mg Tablet 5 mg PO BID Qty: 60 0RF benzonatate 100 mg Capsule 100 mg PO TID Qty: 20 0RF clozapine 100 mg tablet 2.5 tab PO BEDTIME 0RF melatonin 3 mg Tablet 6 mg PO DAILY PRN (Reason: Insomnia) 0RF levothyroxine 150 mcg tablet 1 tab PO DAILY 0RF albuterol sulfate 90 mcg/actuation Hfa Aerosol Inhaler 2 puff INHALATION Q4-6H PRN (Reason: Wheezing) 0RF Anoro Ellipta 62.5-25 mcg/actuation blister with device 1 puff inhalation DAILY 0RF hydrocortisone 2.5 % cream 1 appl topical BID PRN (Reason: skin irritation) Qty: 20 0RF Eliquis 2.5 mg tablet 2.5 mg PO BID 0RF Discontinued vancomycin 125 mg Capsule 125 mg PO DAILY Qty: 7 0RF Discharge Orders: Discharge Order (Routine); Ordered 11/02/21 Ordered By: Aguila Ramos Diet: advance to usual diet Activity on Discharge: As tolerated Stand Alone Forms: Patient Portal Discharge page, Work/School Release Activity Restrictions/Additional Instructions: Take your medications as prescribed. If you were prescribed antibiotics today, it is important that you take your medication to their entirety, do not skip any doses, do not finish them early. Follow-up with your primary care provider this week. Follow-up with ortho if symptoms do not improve within a week. You can take ibuprofen every 6 hours, Tylenol every 4 as needed for pain. Return to the emergency department with new or worsening symptoms. Such as fevers, chills, chest pain, shortness of breath, nausea, vomiting, dizziness, headache, vision changes, lethargy In case of emergency call 911 Care Plan Goals: manage hand swelling Health Concerns: inflammatory arthritis Plan of Treatment: prednisone taper Assessment: see above Patient Instructions: Osteoarthritis (ED), C. Diff (Clostridioides Difficile) Infection (GEN), Bone Density Test (DC)
[2021-11-02] MEDS: Loratadine 10 MG TABLET PO (11:59)
[2021-11-02] MEDS: predniSONE 20 MG TABLET 40 MG PO (12:00)
[2021-11-02] MEDS: Acetaminophen 325 MG TABLET 650 MG PO (12:30)
[2021-11-02] MEDS: Tamoxifen Citrate 10 MG TABLET 20 MG PO (14:10)
--- NOTE | 2021-11-03 14:23 | P.F2F_ITS ---
Service Date Service Date: 11/02/21 Encounter Date of encounter: 11/02/21 Reasons for Services Signs and symptoms assessed: weakness Reason for [facility]: medication management, medication treatment and teach disease management Reason for physical therapy: home safety and mobility and therapeutic exercises Homebound: Leaving the home is medically contraindicated at this time without the asist of a device and/or another person due th the listed conditions above and below. Reason homebound: unsteady gait / fall risk Certification: Based on the above findings, I certify that this patient is confined to the home and needs intermittent [facility] care, physical therapy and/or speech therapy, or continues to need occupational therapy. The patient is under my care, and I have initiated the establishment of the plan of care. The patient will be followed by a physician who will periodically review the plan of care.
--- NOTE | 2021-11-03 14:29 | MHC.CM.PN ---
POST DISCHARGE NOTE: CM RECEIVED A CALL FROM [facility] REQUESTING PTS DC SUMMARY AND FACE TO FACE BE FAXED TO THEM AT [phone]. PAPERWORK FAXED AT [id number] ON 11/03/21
== END 2021-11-02 15:05 | disposition home health service (06) | DRG 553 ==
LOC: HO.ED 11-01 02:13 → HO.EDOVER 11-01 04:43 → HO.S3 11-01 06:14
PROVIDERS: Physician Assistant; Student in an Organized Health Care Education/Training Program; Admitting Provider Hospitalist; Emergency Provider Internal Medicine; PCP Internal Medicine; Visit Provider Internal Medicine
DX: M13.842 Other specified arthritis, left hand (principal); N18.6 End stage renal disease; L03.114 Cellulitis of left upper limb; C50.919 Malignant neoplasm of unspecified site of unspecified female breast; E03.9 Hypothyroidism, unspecified; F31.9 Bipolar disorder, unspecified; I48.0 Paroxysmal atrial fibrillation; Z99.2 Dependence on renal dialysis; Z20.822 Contact with and (suspected) exposure to COVID-19; Z86.711 Personal history of pulmonary embolism; Z87.891 Personal history of nicotine dependence; Z87.01 Personal history of pneumonia (recurrent); Z88.5 Allergy status to narcotic agent; Z88.6 Allergy status to analgesic agent; Z79.01 Long term (current) use of anticoagulants; Z79.810 Long term (current) use of selective estrogen receptor modulators (SERMs); Z79.890 Hormone replacement therapy; Z79.899 Other long term (current) drug therapy
CPT/HCPCS: 36415; 71045; 73110; 73130; 80048; 80053; 80202; 83605; 83735; 84550; 85025; 85652; 86140; 87040; 87324; 87493; 87635; 90999; 96365; 96375; 99285; J0690; J1170; J2270; J3370

== ENCOUNTER 2021-11-06 00:55 | Inpatient (IN) | payer MEDICARE, BC, SELFPAY ==
--- NOTE | ~2021-11-06 | XR_ITS ---
EXAMINATION: XR CHEST CLINICAL INFORMATION: Central line placement. COMPARISON: 11/06/2021 TECHNIQUE: Frontal view of the chest was obtained. FINDINGS: Right IJ central venous catheter tube tip terminates in the SVC just proximal to the cavoatrial junction. Left tunneled IJ dual-lumen dialysis catheter tip terminates in the high right atrium near the cavoatrial junction. Patchy airspace opacities are present in the lung bases bilaterally, unchanged. No pneumothorax or pleural effusion. Calcific atherosclerosis is present in the thoracic aorta. Cardiac and mediastinal contours are unchanged. Unchanged extensive degenerative arthritis at the right shoulder with chronic rotator cuff tear, cephalad displacement of the humeral head, and remodeling of the acromion. Multiple stents are evident in the upper extremities. XR/XR chest 1V IMPRESSION: 1. Right IJ central venous catheter tip terminates in the SVC. 2. Unchanged appearance of the bibasilar airspace opacities.
--- NOTE | ~2021-11-06 | XR_ITS ---
EXAMINATION: XR CHEST CLINICAL INFORMATION: Weakness, cough. COMPARISON: Chest 11/01/2021. TECHNIQUE: Frontal view of the chest was obtained. FINDINGS: The lungs are well expanded with patchy airspace opacity seen in mid and lower lobes bilaterally. The upper lungs are clear. The heart size and progress clarities normal. There is a left jugular central venous dialysis catheter noted. No gross bony abnormality. There are stents visualized in both upper extremities. XR/XR chest 1V IMPRESSION: Stable appearance of bilateral [id number] lobe airspace opacities and left central venous dialysis catheter.
[2021-11-06 01:09] VITALS: BP 96/58; PULSE 78; RESP 18; TEMP 37.2; O2SAT 93; BMI 32.9
--- NOTE | 2021-11-06 06:45 | ED.GENADULT ---
HPI - General Adult General Chief complaint: General Medical Stated complaint: blood in urine; bipolar disorder Time Seen by Provider: 11/06/21 06:45 Source: patient and family (, Neptali) Mode of arrival: ambulatory Limitations: no limitations History of Present Illness HPI narrative: 76-year-old female brought to the emergency department by her for evaluation manic episode and hematuria. According to the , the patient is having a manic episode. The patient has not been able to sleep for 48 hours. The also states that the patient developed hematuria approximately 12 hours prior to coming to the emergency department. The patient states that she has noted bleeding in her vaginal area, she denied frequency, urgency or dysuria. She denied abdominal pain. According to her she has not had fever, cough, shortness of breath, nausea, vomiting or diarrhea. The states that the patient has been admitted before to the psychiatric service for manic episodes. In reviewing her record the patient was seen in the emergency department and admitted 11/01/2021 for cellulitis and osteoarthritis of the left hand. She was also seen in the emergency department on 10/27/2021 and admitted for pneumonia with Klebsiella pneumonia bacteremia. Patient has also been hospitalized in the past for Klebsiella pneumonia with bacteremia Related Data Home Medications Medication Instructions Recorded Confirmed clonazepam 1 mg tablet 1 mg PO BEDTIME 05/21/20 11/06/21 lamotrigine 150 mg tablet 150 mg PO BEDTIME 05/21/20 11/06/21 acetaminophen 325 mg tablet 650 mg PO BID PRN 05/22/20 11/06/21 tamoxifen 20 mg tablet 20 mg PO DAILY@1400 07/15/21 11/06/21 apixaban 2.5 mg tablet (Eliquis) 2.5 mg PO BID 09/03/21 11/06/21 sevelamer carbonate 800 mg tablet 1,600 mg PO TIDWM tab 09/27/21 11/06/21 dronedarone 400 mg tablet (Multaq) 1 tab PO BID 10/20/21 11/06/21 albuterol sulfate 90 mcg/actuation 2 puff INHALATION Q4-6H PRN 11/01/21 11/06/21 aerosol inhaler clozapine 100 mg tablet 2.5 tab PO BEDTIME 11/01/21 11/01/21 levothyroxine 150 mcg tablet 1 tab PO DAILY 11/01/21 11/06/21 melatonin 3 mg tablet 6 mg PO DAILY PRN 11/01/21 11/06/21 umeclidinium 62.5 mcg-vilanterol 1 puff INHALATION DAILY 11/01/21 11/06/21 25 mcg/actuation powdr for inhalation (Anoro Ellipta) Previous Rx's Medication Instructions Recorded hydroxyzine pamoate 50 mg capsule 50 mg PO BEDTIME PRN #90 cap 09/09/21 hydrocortisone 2.5 % topical cream 1 appl TOPICAL BID PRN #20 g 09/27/21 benzonatate 100 mg capsule 100 mg PO TID #20 cap 10/27/21 midodrine 5 mg tablet 5 mg PO BID #60 tab 10/27/21 prednisone 20 mg tablet 40 mg PO DAILY #15 tab 11/02/21 Allergies Allergy/AdvReac Type Severity Reaction Status Date / Time adhesive tape Allergy Intermediate Blister Verified 09/27/21 13:53 aspirin Allergy Intermediate RASH Verified 09/27/21 13:53 benztropine Allergy Intermediate RASH Verified 09/27/21 13:53 NSAIDS (Non-Steroidal Allergy Intermediate RASH Verified 09/27/21 13:53 Anti-Inflamma ziprasidone Allergy Intermediate UNKNOWN Verified 09/27/21 13:53 doxycycline AdvReac Vomiting Verified 09/27/21 13:53 oxycodone AdvReac Anaphylaxis Verified 09/27/21 13:53 Review of Systems Review of Systems: Yes all other systems are reviewed and are negative [facility] Past Medical History Medical History Abdominal pain Acute UTI Arrhythmia Arthritis AV fistula Bipolar 1 disorder Bipolar disorder Bladder cancer Bowel obstruction Breast cancer Bronchopneumonia C. difficile diarrhea Cancer Chronic nausea Chronic respiratory failure COPD (chronic obstructive pulmonary disease) COVID-19 vaccine administered Dialysis patient Diarrhea Dysphagia ESRD (end stage renal disease) History of 2019 novel coronavirus disease (COVID-19) Hx of hypotension Hx of radiation therapy Hydronephrosis Hyperkalemia Hypothyroidism Invasive ductal carcinoma of breast Lab test negative for COVID-19 virus Lab test positive for detection of COVID-19 virus Leukocytosis MSSA bacteremia Paroxysmal A-fib Poor appetite Positive FIT (fecal immunochemical test) Pulmonary emboli Renal failure SBO (small bowel obstruction) Seizure SIRS (systemic inflammatory response syndrome) Thyroid disease Ureteral cancer Vomiting Wears dentures Surgical History History of abdominal surgery History of appendectomy History of back surgery History of bladder surgery (~06/2020) History of cholecystectomy History of esophagogastroduodenoscopy (EGD) History of hand surgery History of lumpectomy of left breast History of lumpectomy of right breast History of tonsillectomy Hx of colonoscopy Hx of foot surgery Family History Family History Father Dementia Mother Bipolar 1 disorder Brother Heart attack Other Mental health disorder Social History Social History Household Members: Significant Other Housing: House Are you a primary adult daycare coordinator to a significant other at home: No Do you presently have visiting nurse or other home services: Yes Alcohol intake: never Patient Tobacco Use Status: Former Tobacco user Quit Date: 4 years ago Tobacco use type: Cigarette Cigarette Packs Per Day: 1.5 Cigarettes Per Day: 30.0 Years Smoked: 50 e-Cigarette/Vaping Use: Never Used Second Hand Smoke Exposure: No Advance Directives: Yes Advance Directives on File: Yes Advance Directives Date on File: 01/24/21 Healthcare Proxy: Yes Guardian: No service: No Current occupational status: disabled Cognitive needs: Yes (Walker/Wheelchair) Hearing needs: No Vision needs: Yes (readng glasses) Physical Exam ED Vital Signs: Vital Signs - 24 hr 11/06/21 01:09 11/06/21 15:34 Temperature 98.9 F 97.9 F Pulse Rate 78 87 Respiratory Rate 18 18 Blood Pressure 96/58 L 118/49 L Pulse Oximetry 93 96 BMI result Body Mass Index 32.9 Const General: cooperative and no acute distress Orientation/consciousness: oriented to person and oriented to place Limitations: no limitations HENMT Head: Yes normal to inspection, Yes normocephalic and Yes atraumatic Ears: external ears normal General nose exam: Normal external nose present Face and sinus: Yes normal facial exam Mouth: Normal oral and palatal mucosa present Throat: Yes posterior oropharynx normal Eyes General: appearance normal, both eyes and all related structures Pupils: Equal, round and reactive pupils present Neck Neck: Yes normal visual inspection, Yes no lymphadenopathy, Yes trachea midline and Yes supple Chest Chest palpation & inspection: normal inspection of the chest and normal palpation of entire chest wall Resp Effort & Inspection: normal respiratory effort and able to speak in complete sentences Auscultation: clear to auscultation bilaterally Cardio Rate: regular rate Rhythm: regular rhythm Heart sounds: S1 normal heart sound present, S2 normal heart sound present and Murmur heart sound present systolic III/ and at the right sternal border GI Inspection: Yes normal to inspection Palpation (GI): Soft to palpation, nontender and no guarding Auscultation: normal bowel sounds General: Yes no CVA tenderness Back/Spine/Pelvis Back: no CVA tenderness Skin General skin exam: no rashes or lesions noted Neuro General: oriented to person and oriented to place Cranial nerves: Yes CN's II-XII intact bilaterally and Yes Equal, round and reactive pupils present Cognition (Neuro): normal cognition Motor exam (neuro): Other motor observations present (Upper extremities normal, lower extremity weakness which is chronic) Extrem Other: Lower extremity weakness which is chronic Psych Appearance: grossly normal Speech and movement: Normal speech and movement present Affect: Animated affect present Attitude: cooperative Thought process: Normal thought process present Thought content: Normal thought content present Course Course Course Narrative: 76-year-old female who presents emergency department for evaluation possible tawny with insomnia and not able to sleep for the last 48 hours and 12 hours of hematuria. Patient does have a history of end-stage renal disease and is dialyzed on Friday, Friday and Friday. states she did complete her full dialysis yesterday. The patient was hospitalized earlier in the month for Klebsiella pneumonia with bacteremia and a 2nd admission for cellulitis of the left hand. According to the she has also been hospitalized in the past to her psychiatric service for her tawny. Patient's vital signs were normal. Her examination did reveal that she was very animated but pleasant and cooperative and oriented. Her exam is otherwise unremarkable. Given her significant past medical history in her hematuria, I did order a laboratory evaluation to include CBC, CMP, COVID-19, drug screen, alcohol level, lactic acid, lipase, PTT, PT INR, TSH with reflex free T4, straight cath urinalysis and blood cultures. Chest x-ray and EKG will also be obtained. Patient was ordered to get Ativan 1 mg IV as well. If the patient is medically cleared I will consult crisis for her tawny. 1058: Laboratory evaluation: WBC only slightly elevated 11,000. with an H&H of 9.9 and 31.9, this is chronic. Elevated BUN and creatinine 55 and 4.52, this is chronic. ETOH was below detectable limits. COVID-19 was negative. TSH was elevated at 13.84, she has had similar elevations in the past, free T4 was normal at 1.10, this is more consistent with euthyroid as opposed to hypothyroidism. Urinalysis and urine drug screen is pending. At this time, I think that the patient is medically cleared for psychiatric evaluation for her tawny. I will consult our crisis counselor. 1330: Urinalysis revealed 3+ blood, 2+ protein, negative leukocyte esterase, 3+ nitrates. Microscopic revealed 150 RBCs, 29 WBCs, 2+ bacteria and 1+ squamous cells. It is unclear to me if this represents a urinary tract infection however the patient has had significant UTIs in the past therefore I will treat her with Keflex times b.i.d. a day for 7 days pending her urine culture result. 1628: Start physician observation at 16:28 hours: Patient is being evaluated by care team at this time and the plan will be to keep the patient in the emergency department until an appropriate bed can be found to manage her tawny. I ordered a medical reconciliation of her medications and we will order her medications for her. Patient remains manic. Patient's physical examination is unchanged, she is awake, alert, pleasant cooperative, neurologic exam was nonfocal except for lower extremity weakness which is chronic, lungs clear, heart regular rate rhythm she does have a 3/6 systolic murmur, abdomen soft nontender. At the end of my shift, patient's care was turned over to my colleague, Dr. Palma. Medical Decision Making Lab Data Result diagrams: 11/06/21 09:14 11/06/21 09:14 Labs: Lab Results 11/06/21 11/06/21 11/06/21 Range/Units 07:47 09:14 09:14 WBC 11.0 H (4.8-10.8) X10*3/uL RBC 3.28 L (4.20-5.50) X10*6/uL Hgb 9.9 L (12.0-16.0) g/dl Hct 31.9 L (37.0-47.0) % MCV 97.3 (80.0-98.0) fL MCH 30.2 (27.0-33.0) pg MCHC 31.0 (31.0-35.0) g/dl RDW 15.9 (11.0-16.0) % Plt Count 341 D (160-400) X10*3/uL MPV 9.5 (9.4-12.3) fL Immature Gran % (Auto) 0.5 H (0.0-0.4) % Neut % (Auto) 76.0 H (45-73) % Lymph % (Auto) 11.8 L (20-40) % Turner % (Auto) 10.2 (2-11) % Eos % (Auto) 1.0 (0-4) % Baso % (Auto) 0.5 (0-2) % Lymph # (Auto) 1.3 (1.2-4.9) X10*3/uL Turner # (Auto) 1.1 (0.1-1.2) X10*3/uL Eos # (Auto) 0.1 (0.0-0.4) X10*3/uL Baso # (Auto) 0.1 (0.0-0.2) X10*3/uL Abs Immat Gran (auto) 0.06 H (0.00-0.03) X10*3/uL Absolute Neuts (auto) 8.4 H (2.0-8.3) x10*3/uL Absolute Nucleated RBC 0.000 (0.0-0.012) X10*3/uL Nucleated RBC % (auto) 0.0 (0.0-0.2) /100WBC PT 15.7 H (9.9-13.0) SEC INR 1.4 H (0.9-1.1) APTT 38.3 H (24.1-38.0) SEC Sodium (135-145) mmol/L Potassium (3.3-5.1) mmol/L Chloride (96-108) mmol/L Carbon Dioxide (22-29) mmol/L Anion Gap (12-20) BUN (9-16) mg/dL Creatinine (0.5-1.4) mg/dL Estim Creat Clear Calc Estimated GFR Random Glucose (60-115) mg/dL Lactic Acid (0.5-2.0) mmol/L Calcium (8.4-10.2) mg/dL Total Bilirubin (0.0-1.0) mg/dL AST (5-31) U/L ALT (0-31) U/L Alkaline Phosphatase (39-117) U/L Total Protein (6.5-8.0) g/dL Albumin (3.5-5.0) g/dL Lipase (8-78) U/L TSH (0.32-4.0) uIU/mL Free T4 (0.71-1.85) ng/dL Urine Color Urine Appearance Urine pH (5.0-8.0) Ur Specific [place] (1.005-1.025) Urine Protein (NEG-TRACE) MG/DL Urine Glucose (UA) (NEG) MG/DL Urine Ketones (NEG) MG/DL Urine Blood (NEG) Urine Nitrite (NEG) Ur Leukocyte Esterase (NEG) Urine RBC (0) /HPF Urine WBC (0-4) /HPF Ur Squamous Epith Cells /LPF Urine Bacteria /LPF Urine Opiates Screen (Not Detect) Urine Fentanyl Screen (Not Detect) Ur Barbiturates Screen (Not Detect) Ur Phencyclidine Scrn (Not Detect) Ur Amphetamines Screen (Not Detect) U Benzodiazepines Scrn (Not Detect) Urine Cocaine Screen (Not Detect) U Marijuana (THC) Screen (Not Detect) Ethyl Alcohol mg/dL COVID-19 (PARTH) Negative (Negative) COVID-19 Clin Com See Note 11/06/21 11/06/21 11/06/21 Range/Units 09:14 09:14 09:14 WBC (4.8-10.8) X10*3/uL RBC (4.20-5.50) X10*6/uL Hgb (12.0-16.0) g/dl Hct (37.0-47.0) % MCV (80.0-98.0) fL MCH (27.0-33.0) pg MCHC (31.0-35.0) g/dl RDW (11.0-16.0) % Plt Count (160-400) X10*3/uL MPV (9.4-12.3) fL Immature Gran % (Auto) (0.0-0.4) % Neut % (Auto) (45-73) % Lymph % (Auto) (20-40) % Turner % (Auto) (2-11) % Eos % (Auto) (0-4) % Baso % (Auto) (0-2) % Lymph # (Auto) (1.2-4.9) X10*3/uL [place] # (Auto) (0.1-1.2) X10*3/uL Eos # (Auto) (0.0-0.4) X10*3/uL Baso # (Auto) (0.0-0.2) X10*3/uL Abs Immat Gran (auto) (0.00-0.03) X10*3/uL Absolute Neuts (auto) (2.0-8.3) x10*3/uL Absolute Nucleated RBC (0.0-0.012) X10*3/uL Nucleated RBC % (auto) (0.0-0.2) /100WBC PT (9.9-13.0) SEC INR (0.9-1.1) APTT (24.1-38.0) SEC Sodium 138 (135-145) mmol/L Potassium 5.0 D (3.3-5.1) mmol/L Chloride 101 (96-108) mmol/L Carbon Dioxide 23 (22-29) mmol/L Anion Gap 19 (12-20) BUN 55 H D (9-16) mg/dL Creatinine 4.52 H* (0.5-1.4) mg/dL Estim Creat Clear Calc 10.8 Estimated GFR 10 Random Glucose 76 (60-115) mg/dL Lactic Acid 1.2 (0.5-2.0) mmol/L Calcium 9.8 (8.4-10.2) mg/dL Total Bilirubin 0.4 (0.0-1.0) mg/dL AST 14 D (5-31) U/L ALT 9 (0-31) U/L Alkaline Phosphatase 114 (39-117) U/L Total Protein 6.7 (6.5-8.0) g/dL Albumin 3.5 (3.5-5.0) g/dL Lipase 65 (8-78) U/L TSH (0.32-4.0) uIU/mL Free T4 (0.71-1.85) ng/dL Urine Color Urine Appearance Urine pH (5.0-8.0) Ur Specific [place] (1.005-1.025) Urine Protein (NEG-TRACE) MG/DL Urine Glucose (UA) (NEG) MG/DL Urine Ketones (NEG) MG/DL Urine Blood (NEG) Urine Nitrite (NEG) Ur Leukocyte Esterase (NEG) Urine RBC (0) /HPF Urine WBC (0-4) /HPF Ur Squamous Epith Cells /LPF Urine Bacteria /LPF Urine Opiates Screen (Not Detect) Urine Fentanyl Screen (Not Detect) Ur Barbiturates Screen (Not Detect) Ur Phencyclidine Scrn (Not Detect) Ur Amphetamines Screen (Not Detect) U Benzodiazepines Scrn (Not Detect) Urine Cocaine Screen (Not Detect) U Marijuana (THC) Screen (Not Detect) Ethyl Alcohol < 10 mg/dL COVID-19 (PARTH) (Negative) COVID-19 Clin Com 11/06/21 11/06/21 11/06/21 Range/Units 09:14 11:05 11:05 WBC (4.8-10.8) X10*3/uL RBC (4.20-5.50) X10*6/uL Hgb (12.0-16.0) g/dl Hct (37.0-47.0) % MCV (80.0-98.0) fL MCH (27.0-33.0) pg MCHC (31.0-35.0) g/dl RDW (11.0-16.0) % Plt Count (160-400) X10*3/uL MPV (9.4-12.3) fL Immature Gran % (Auto) (0.0-0.4) % Neut % (Auto) (45-73) % Lymph % (Auto) (20-40) % [place] % (Auto) (2-11) % Eos % (Auto) (0-4) % Baso % (Auto) (0-2) % Lymph # (Auto) (1.2-4.9) X10*3/uL [place] # (Auto) (0.1-1.2) X10*3/uL Eos # (Auto) (0.0-0.4) X10*3/uL Baso # (Auto) (0.0-0.2) X10*3/uL Abs Immat Gran (auto) (0.00-0.03) X10*3/uL Absolute Neuts (auto) (2.0-8.3) x10*3/uL Absolute Nucleated RBC (0.0-0.012) X10*3/uL Nucleated RBC % (auto) (0.0-0.2) /100WBC PT (9.9-13.0) SEC INR (0.9-1.1) APTT (24.1-38.0) SEC Sodium (135-145) mmol/L Potassium (3.3-5.1) mmol/L Chloride (96-108) mmol/L Carbon Dioxide (22-29) mmol/L Anion Gap (12-20) BUN (9-16) mg/dL Creatinine (0.5-1.4) mg/dL Estim Creat Clear Calc Estimated GFR Random Glucose (60-115) mg/dL Lactic Acid (0.5-2.0) mmol/L Calcium (8.4-10.2) mg/dL Total Bilirubin (0.0-1.0) mg/dL AST (5-31) U/L ALT (0-31) U/L Alkaline Phosphatase (39-117) U/L Total Protein (6.5-8.0) g/dL Albumin (3.5-5.0) g/dL Lipase (8-78) U/L TSH 13.84 H (0.32-4.0) uIU/mL Free T4 1.10 (0.71-1.85) ng/dL Urine Color YELLOW Urine Appearance CLOUDY Urine pH 7.0 (5.0-8.0) Ur Specific [place] 1.010 (1.005-1.025) Urine Protein 2+ H (NEG-TRACE) MG/DL Urine Glucose (UA) 100 H (NEG) MG/DL Urine Ketones NEG (NEG) MG/DL Urine Blood 3+ H (NEG) Urine Nitrite NEG (NEG) Ur Leukocyte Esterase 3+ H (NEG) Urine RBC 76-150 H (0) /HPF Urine WBC 15-29 H (0-4) /HPF Ur Squamous Epith Cells 1+ /LPF Urine Bacteria 2+ /LPF Urine Opiates Screen Not Detected (Not Detect) Urine Fentanyl Screen Not Detected (Not Detect) Ur Barbiturates Screen Not Detected (Not Detect) Ur Phencyclidine Scrn Not Detected (Not Detect) Ur Amphetamines Screen Not Detected (Not Detect) U Benzodiazepines Scrn Not Detected (Not Detect) Urine Cocaine Screen Not Detected (Not Detect) U Marijuana (THC) Screen Not Detected (Not Detect) Ethyl Alcohol mg/dL COVID-19 (PARTH) (Negative) COVID-19 Clin Com ECG Data Attestation: I personally reviewed and interpreted this ECG as follows: Interpretation: 0808: Normal sinus rhythm with a rate of 62, normal FL interval, QRS duration and QTC interval, no ST segment elevation, no ST segment depression, no PACs, no PVCs peaked T-waves V3 through V6. Discharge Plan Discharge Clinical Impression: Tawny, Urinary tract infection Patient Disposition: Still a Patient Prescriptions: No Action hydroxyzine pamoate 50 mg capsule 50 mg PO BEDTIME PRN (Reason: for insomnia) Qty: 90 1RF lamotrigine 150 mg tablet 150 mg PO BEDTIME 0RF clonazepam 1 mg tablet 1 mg PO BEDTIME 0RF acetaminophen 325 mg Tablet 650 mg PO BID PRN (Reason: Pain (Scale Score 1-3)) 0RF sevelamer carbonate 800 mg tablet 1,600 mg PO TIDWM 0RF tamoxifen 20 mg tablet 20 mg PO DAILY@1400 0RF Multaq 400 mg tablet 1 tab PO BID 0RF midodrine 5 mg Tablet 5 mg PO BID Qty: 60 0RF benzonatate 100 mg Capsule 100 mg PO TID Qty: 20 0RF clozapine 100 mg tablet 2.5 tab PO BEDTIME 0RF melatonin 3 mg Tablet 6 mg PO DAILY PRN (Reason: Insomnia) 0RF levothyroxine 150 mcg tablet 1 tab PO DAILY 0RF albuterol sulfate 90 mcg/actuation Hfa Aerosol Inhaler 2 puff INHALATION Q4-6H PRN (Reason: Wheezing) 0RF Anoro Ellipta 62.5-25 mcg/actuation blister with device 1 puff inhalation DAILY 0RF prednisone 20 mg Tablet 40 mg PO DAILY Qty: 15 0RF Rx Instructions: 40mg for 5 days then 20mg daily for 5 days hydrocortisone 2.5 % cream 1 appl topical BID PRN (Reason: skin irritation) Qty: 20 0RF Eliquis 2.5 mg tablet 2.5 mg PO BID 0RF
--- NOTE | 2021-11-06 07:15 | ECG_ITS ---
Test Reason : CHEST PAIN Blood Pressure : / mmHG Vent. Rate : 062 BPM Atrial Rate : 062 BPM P-R Int : 158 ms QRS Dur : 088 ms QT Int : 448 ms P-R-T Axes : 046 013 034 degrees QTc Int : 454 ms Normal sinus rhythm Normal ECG When compared with ECG of 19-OCT-2021 23:32, Aberrant conduction is no longer Present Vent. rate has decreased BY [address] no longer depressed in Anterior leads Nonspecific T wave abnormality no longer evident in Lateral leads Referred By: Alejandro Zarate Electronically Signed By:Amol Basilio
[2021-11-06 08:07] LABS: COVID-19 Test Negative (Negative); IDNOW Serial# 16C4AD1C
[2021-11-06 09:22] LABS: MANUAL DIFF FLAG NO
[2021-11-06 09:23] LABS: Basophils Absolute Auto 0.1 X10*3/uL (0.0-0.2); Basophils Percent Auto 0.5 % (0-2); Eosinophils Absolute Auto 0.1 X10*3/uL (0.0-0.4); Hematocrit 31.9 % (37.0-47.0); Hemoglobin 9.9 g/dl (12.0-16.0); Imm Gran Abs Auto 0.06 X10*3/uL (0.00-0.03); Imm Gran Pct Auto 0.5 % (0.0-0.4); Lymphocytes Absolute Auto 1.3 X10*3/uL (1.2-4.9); Lymphocytes Percent Auto 11.8 % (20-40); Mean Corpuscular Hemoglobin 30.2 pg (27.0-33.0); Mean Corpuscular Volume 97.3 fL (80.0-98.0); Mean Platelet Volume 9.5 fL (9.4-12.3); Monocytes Absolute Auto 1.1 X10*3/uL (0.1-1.2); Monocytes Percent Auto 10.2 % (2-11); Neutrophils Absolute Auto 8.4 x10*3/uL (2.0-8.3); Platelet Count 341 X10*3/uL (160-400); Red Blood Count 3.28 X10*6/uL (4.20-5.50); Red Cell Distribution Width 15.9 % (11.0-16.0)
[2021-11-06 09:29] LABS: INTERNATIONAL NORM RATIO 1.4 (0.9-1.1); Prothrombin Time 15.7 SEC (9.9-13.0)
[2021-11-06 09:31] LABS: Partial Thromboplastin Time 38.3 SEC (24.1-38.0)
[2021-11-06 09:40] LABS: Lactic Acid 1.2 mmol/L (0.5-2.0)
[2021-11-06 09:48] LABS: Ethanol < 10 mg/dL
[2021-11-06 10:09] LABS: TSH reflex Free T4 13.84 uIU/mL (0.32-4.0)
[2021-11-06 10:37] LABS: Alanine Aminotransferase 9 U/L (0-31); Albumin Level 3.5 g/dL (3.5-5.0); Alkaline Phosphatase 114 U/L (39-117); Anion Gap 19 (12-20); Aspartate Amino Transferase 14 U/L (5-31); Bilirubin Total 0.4 mg/dL (0.0-1.0); Blood Urea Nitrogen 55 mg/dL (9-16); Calcium 9.8 mg/dL (8.4-10.2); Carbon Dioxide 23 mmol/L (22-29); Chloride 101 mmol/L (96-108); Creatinine Clr Calc Pharmacy 10.8; Estimated Glomerular Filt Rate 10; Glucose Random 76 mg/dL (60-115); Lipase 65 U/L (8-78); Sodium 138 mmol/L (135-145); Total Protein 6.7 g/dL (6.5-8.0)
[2021-11-06 11:15] LABS: Appearance Urine CLOUDY; Color Urine YELLOW; Glucose Urine UA 100 MG/DL (NEG); Leukocyte Esterase Urine 3+ (NEG); Nitrite Urine NEG (NEG); UACC Culture Trigger YES; Urine Blood 3+ (NEG); Urine Ketones NEG (NEG); Urine Protein 2+ MG/DL (NEG-TRACE)
[2021-11-06 11:26] LABS: Bacteria Urine 2+ /LPF; Squamous Epithelial Cell Urine 1+ /LPF
[2021-11-06 11:38] LABS: Amphetamine Screen Urine Not Detected (Not Detect); Barbiturates, Urine Not Detected (Not Detect); Benzodiazepines Screen Urine Not Detected (Not Detect); Cannabinoid Screen Urine Not Detected (Not Detect); Cocaine Screen Urine Not Detected (Not Detect); Fentanyl, urine Not Detected (Not Detect); Opiate Screen Urine Not Detected (Not Detect); Phencyclidine Screen Urine Not Detected (Not Detect)
--- NOTE | 2021-11-06 12:18 | PC.NURSE ---
N CONSULT SUBMITTED SUCCESSFULLY. PT GIVEN MEAL. LEFT HIS PHONE NUMBER STANLEY ([phone]). PT IN BED SELF DIALOGUING. PT DENIES SI/HI.
--- NOTE | 2021-11-06 12:50 | PHA.MEDREC ---
Pharmacy Consult ? Medication Reconciliation Pharmacy has completed the medication reconciliation. Patient was just discharged 11/02. Med rec completed on 11/01 by me. No changes per claim history bedside predinsone order on discharge. Makayla Obregon, PharmD
--- NOTE | 2021-11-06 13:52 | PHA.MEDREC ---
Pharmacy Consult ? Medication Reconciliation Pharmacy has completed the medication reconciliation. Patient was just discharged 11/02. Med rec completed on 11/01 by me. No changes per claim history bedside prednisone order on discharge. Patient's report patient was on clozaril last visit even thought last filled August. Tried to call patient's to re-confirm if patient has been taking clozaril, left dose unconfirm. Tried to call Prescriber, left a message to call back. Will have second shift pharmacist F/U. Makayla Obregon, BladeD.
[2021-11-06] MEDS: cephALEXin 500 MG CAPSULE PO ×2 (15:03→21:58)
[2021-11-06 15:34] VITALS: BP 118/49; PULSE 87; RESP 18; TEMP 36.6; O2SAT 96
--- NOTE | 2021-11-06 16:28 | PC.NURSE ---
incontinent care provided, meal given, pt seen by Kely from Care Team with at bedside.
--- NOTE | 2021-11-06 18:20 | MHC.CARE ---
Patient evaluated by the CARE Team to need inpatient psychiatric treatment. She will remain in the ED until a placement is secured with CARE Team completing a daily Mental Status Exam. She is aware and in agreement with plan of care. All providers updated
[2021-11-06 20:41] VITALS: BP 131/56; PULSE 77; RESP 16; TEMP 36.6; O2SAT 93
--- NOTE | 2021-11-06 21:57 | HE.PHANOTE ---
RE: CLOZAPINE Following up from morning request 11/06/21, called pt's 's cell phone and home phone, left message with call back number and attempted several times throughout the evening shift to verify if pt still takes clozapine. Also called [facility] and spoke to Mickey who confirmed that last fill was dispensed 09/12/2021. At this time unable to confirm if pt still takes clozapine
[2021-11-06 23:23] VITALS: BP 152/50; PULSE 80; RESP 16; TEMP 36.9; O2SAT 95
[2021-11-07] VITALS (7 sets, daily range): BP systolic 136–157; BP diastolic 57–66; PULSE 61–84; RESP 16–18; TEMP 36.8; O2SAT 94–99
[2021-11-07] MEDS: Levothyroxine Sodium 150 MCG TABLET PO (09:27)
[2021-11-07] MEDS: Dronedarone HCl 400 MG TABLET PO ×2 (09:27→20:38)
[2021-11-07] MEDS: Sevelamer Carbonate Tablet 800 MG TABLET 1600 MG PO ×3 (09:28→19:16)
[2021-11-07] MEDS: Midodrine HCl 5 MG TABLET PO ×2 (09:29→20:12)
[2021-11-07] MEDS: Apixaban 2.5 MG TABLET PO ×2 (09:29→20:12)
[2021-11-07] MEDS: cephALEXin 500 MG CAPSULE PO ×2 (09:29→20:12)
[2021-11-07] MEDS: Benzonatate 100 MG CAPSULE PO ×3 (09:29→20:12)
[2021-11-07] MEDS: predniSONE 20 MG TABLET PO ×2 (09:29→09:30)
--- NOTE | 2021-11-07 09:52 | PC.NURSE ---
talking non stop and not making any sense . talking about having a phone conversation w god, medicated as ordered, called and will visit later
[2021-11-07] MEDS: Tamoxifen Citrate 10 MG TABLET 20 MG PO (13:45)
--- NOTE | 2021-11-07 14:13 | PC.NURSE ---
at bedside, continues to talk non stop, confused. ate lunch
--- NOTE | 2021-11-07 15:02 | MHC.CARE ---
CARE Team met with patient and her in ED21; she had just woken from a nap and appeared disoriented. She was lying on her back, was repetitive and speaking nonsensically stated, My name is Prudence, I loved all my husbands, ?I know where I am,? she did not know where she was or remember speaking with me yesterday. Her speculated she was altered due to the medication they gave her to sleep. Nursing staff reported that patient has been more subdued than previously but was still talking nonstop but incomprehensible.
--- NOTE | 2021-11-07 15:26 | PC.NURSE ---
PATIENT WAS GIVEN A BED BATH ,AND LINEN WAS CHANGE ,PATIENT REPOSITION TO LEFT SIDE ,PATIENT RESTING AND TALKING TO HERSELF .
[2021-11-07] MEDS: lamoTRIgine 100 MG TABLET 150 MG PO (20:12)
[2021-11-07] MEDS: clonazePAM 1 MG TABLET PO (20:12)
[2021-11-07] MEDS: cloZAPine 100 MG TABLET 150 MG PO (20:38)
--- NOTE | 2021-11-07 21:35 | PC.NURSE ---
PATIENT HAD A LARGE AMOUNT OFF LOOSE STOOL ,PATIENT WAS CLEAN UP ,BEDDING WAS CHANGE ,PATIENT BOTTOM IS RED ,RN AWARE .
--- NOTE | 2021-11-07 23:22 | P.HPHOSP_ITS ---
History of Present Illness Date of Service: 11/07/21 Chief Complaint: insomnia Patient was admitted on 11/07 but the order for admission was delayed This is a 76-year-old female with past medical history of hyperlipidemia, ESRD on dialysis, paroxysmal AFib, breast cancer, hypothyroidism, anxiety and depression, bipolar disorder, history of pulmonary embolism on Eliquis, SBO, seizures, and COPD presents to the hospital brought in by her for increased confusion and insomnia. Patient was recently discharged from the hospital on 11/02 after being managed for inflammatory arthritis, patient was discharged on prednisone and sent home. Patient for reports that she has not slept since being discharged from the hospital, she is verbally more combative, not directable, slightly confused, and he was very concerned about her, he called her psychiatrist and her psychiatrist as him to bring her to the hospital Patient herself is very confused, she is delirious, has visual hallucinations, she reports different stories and unable to give much history or answer questions appropriately. Unable to get much review of system from patient On arrival to the ED patient hemodynamically stable with no significant abnormal vitals Labs are significant for WBC count of 11, hemoglobin of 9.9, hematocrit 31.9, within her baseline, creatinine of 4.52, UA is positive for leukocyte Estrace as well as WBC Patient also found to have TSH of 13 Given significant encephalopathy likely secondary to UTI as well as psychosis in the setting of recent hospitalization and prednisone treatment I anticipate a medically necessary to night admission for management and monitoring. This cannot be done outpatient as patient will do poorly Review of Systems 2 Review of Systems: Yes all other systems are reviewed and are negative [facility] Medical History Abdominal pain Acute UTI Arrhythmia Arthritis AV fistula Bipolar 1 disorder Bipolar disorder Bladder cancer Bowel obstruction Breast cancer Bronchopneumonia C. difficile diarrhea Cancer Chronic nausea Chronic respiratory failure COPD (chronic obstructive pulmonary disease) COVID-19 vaccine administered Dialysis patient Diarrhea Dysphagia ESRD (end stage renal disease) History of 2018 novel coronavirus disease (COVID-19) Hx of hypotension Hx of radiation therapy Hydronephrosis Hyperkalemia Hypothyroidism Invasive ductal carcinoma of breast Lab test negative for COVID-19 virus Lab test positive for detection of COVID-19 virus Leukocytosis MSSA bacteremia Paroxysmal A-fib Poor appetite Positive FIT (fecal immunochemical test) Pulmonary emboli Renal failure SBO (small bowel obstruction) Seizure SIRS (systemic inflammatory response syndrome) Thyroid disease Ureteral cancer Vomiting Wears dentures Family History Father Dementia Mother Bipolar 1 disorder Brother Heart attack Other Mental health disorder Surgical History History of abdominal surgery History of appendectomy History of back surgery History of bladder surgery (~06/2020) History of cholecystectomy History of esophagogastroduodenoscopy (EGD) History of hand surgery History of lumpectomy of left breast History of lumpectomy of right breast History of tonsillectomy Hx of colonoscopy Hx of foot surgery Social History Household Members: Significant Other Housing: House Are you a primary tree care foreman to a significant other at home: No Do you presently have visiting nurse or other home services: Yes Alcohol intake: never Patient Tobacco Use Status: Former Tobacco user Quit Date: 4 years ago Tobacco use type: Cigarette Cigarette Packs Per Day: 1.5 Cigarettes Per Day: 30.0 Years Smoked: 50 e-Cigarette/Vaping Use: Never Used Second Hand Smoke Exposure: No Advance Directives: Yes Advance Directives on File: Yes Advance Directives Date on File: 01/24/21 Healthcare Proxy: Yes Guardian: No service: No Current occupational status: disabled Cognitive needs: Yes (Walker/Wheelchair) Hearing needs: No Vision needs: Yes (readng glasses) Meds Allergies Allergy/AdvReac Type Severity Reaction Status Date / Time adhesive tape Allergy Intermediate Blister Verified 09/27/21 13:53 aspirin Allergy Intermediate RASH Verified 09/27/21 13:53 benztropine Allergy Intermediate RASH Verified 09/27/21 13:53 NSAIDS (Non-Steroidal Allergy Intermediate RASH Verified 09/27/21 13:53 Anti-Inflamma ziprasidone Allergy Intermediate UNKNOWN Verified 09/27/21 13:53 doxycycline AdvReac Vomiting Verified 09/27/21 13:53 oxycodone AdvReac Anaphylaxis Verified 09/27/21 13:53 Active Medications: Current Medications Acetaminophen (Acetaminophen 325 Mg Tablet) 650 mg PO BID PRN PRN Reason: Pain (Scale Score 1-3) Albuterol Sulfate (Albuterol Sulfate 90 Mcg 8 Gm Inhaler) 2 puff INHALE Q4H PRN PRN Reason: Wheezing Apixaban (Apixaban 2.5 Mg Tablet) 2.5 mg PO BID [facility] Last Admin: 11/07/21 20:12 Dose: 2.5 mg Documented by: Benzonatate (Benzonatate 100 Mg Capsule) 100 mg PO TID [facility] Last Admin: 11/07/21 20:12 Dose: 100 mg Documented by: Cephalexin HCl (Cephalexin 500 Mg Capsule) 500 mg PO BID [facility] Last Admin: 11/07/21 20:12 Dose: 500 mg Documented by: Clonazepam (Clonazepam 1 Mg Tablet) 1 mg PO BEDTIME [facility] Last Admin: 11/07/21 20:12 Dose: 1 mg Documented by: Clozapine (Clozapine 100 Mg Tablet) 150 mg PO BEDTIME [facility] Last Admin: 11/07/21 20:38 Dose: 150 mg Documented by: Dronedarone (Dronedarone Hcl 400 Mg Tablet) 400 mg PO BID [facility] Last Admin: 11/07/21 20:38 Dose: 400 mg Documented by: Hydrocortisone (Hydrocortisone 1 % Cream 28.35 Gm Tube) 1 appl TOPICAL BID PRN PRN Reason: skin irritation Hydroxyzine HCl (Hydroxyzine Hcl 50 Mg Tablet) 50 mg PO BEDTIME PRN PRN Reason: for insomnia Ceftriaxone Sodium 1 gm/ (Sodium Chloride) 50 mls @ 100 mls/hr IV Q24H [facility] Lactated Ringer's (Lr) 1,000 mls @ 100 mls/hr IVCONT .Q10H [facility] Lamotrigine (Lamotrigine 100 Mg Tablet) 150 mg PO BEDTIME [facility] Last Admin: 11/07/21 20:12 Dose: 150 mg Documented by: Levothyroxine Sodium (Levothyroxine Sodium 150 Mcg Tablet) 150 mcg PO DAILY@0630 [facility] Last Admin: 11/07/21 09:27 Dose: 150 mcg Documented by: Melatonin (Melatonin 3 Mg Tablet) 6 mg PO BEDTIME PRN PRN Reason: Insomnia Midodrine (Midodrine Hcl 5 Mg Tablet) 5 mg PO BID [facility] Last Admin: 11/07/21 20:12 Dose: 5 mg Documented by: Patient Own Medication ( Umeclidinium- Vilanterol [Anoro Ellipta] 62.5-25 Mcg /Actuation) 1 each INHALE RDAILY [facility] Last Admin: 11/07/21 14:13 Dose: 1 each Documented by: Pharmacy Consult (Consult Rx Perform Med Rec) 1 each MISCELLANE ONCE PRN PRN Reason: Consult order Pharmacy Consult (Consult Rx Perform Med Rec) 1 each MISCELLANE ONCE PRN PRN Reason: Consult order Quetiapine Fumarate (Quetiapine Fumarate 25 Mg Tablet) 25 mg PO ONCE ONE Stop: 11/07/21 23:13 Sevelamer Carbonate (Sevelamer Carbonate Tablet 800 Mg Tablet) 1,600 mg PO TIDWM [facility] Last Admin: 11/07/21 19:16 Dose: 1,600 mg Documented by: Tamoxifen Citrate (Tamoxifen Citrate 10 Mg Tablet) 20 mg PO DAILY@1400 [facility] Last Admin: 11/07/21 13:45 Dose: 20 mg Documented by: Home Medications Medication Instructions Recorded Confirmed Last Taken Type clonazepam 1 mg tablet 1 mg PO BEDTIME 05/21/20 11/06/21 07/14/21 History lamotrigine 150 mg tablet 150 mg PO BEDTIME 05/21/20 11/06/21 10/18/21 History acetaminophen 325 mg tablet 650 mg PO BID PRN 05/22/20 11/06/21 03/19/21 History tamoxifen 20 mg tablet 20 mg PO DAILY@1400 07/15/21 11/06/21 10/19/21 09:00 History apixaban 2.5 mg tablet (Eliquis) 2.5 mg PO BID 09/03/21 11/06/21 10/19/21 History 0900 sevelamer carbonate 800 mg tablet 1,600 mg PO TIDWM tab 09/27/21 11/06/21 Unknown History dronedarone 400 mg tablet (Multaq) 1 tab PO BID 10/20/21 11/06/21 Unknown History albuterol sulfate 90 mcg/actuation 2 puff INHALATION Q4-6H PRN 11/01/21 11/06/21 Unknown History aerosol inhaler clozapine 100 mg tablet 150 mg PO BEDTIME 11/01/21 11/07/21 Unknown History levothyroxine 150 mcg tablet 1 tab PO DAILY 11/01/21 11/06/21 Unknown History melatonin 3 mg tablet 6 mg PO DAILY PRN 11/01/21 11/06/21 Unknown History umeclidinium 62.5 mcg-vilanterol 1 puff INHALATION DAILY 11/01/21 11/06/21 Unknown History 25 mcg/actuation powdr for inhalation (Anoro Ellipta) Physical Exam Vital Signs and Narrative: Vital Signs: Last Vital Signs Temp 98.2 F 11/07/21 20:08 Pulse 61 11/07/21 20:08 Resp 16 11/07/21 20:08 BP 157/60 H 11/07/21 20:08 Pulse Ox 94 11/07/21 20:08 BMI result Body Mass Index 32.9 Const: Other: Very confused, hallucinating, no apparent distress General: cooperative and no acute distress Eyes: General: appearance normal, both eyes and all related structures Resp: Effort & Inspection: normal respiratory effort Auscultation: clear to auscultation bilaterally Cardio: Rate: regular rate Rhythm: regular rhythm GI: Palpation (GI): Soft to palpation Auscultation: normal bowel sounds Skin: General skin exam: no rashes or lesions noted Neuro: Other: Oriented to self but not place or time, confused Extrem: General: Yes normal to inspection and Yes no pedal edema Results Labs CBC and Chem 7: 11/08/21 05:56 11/06/21 09:14 Assessment and Plan (1) Encephalopathy: Status: Acute (2) Urinary tract infection: Status: Acute (3) Delirious: Status: Acute (4) ESRD (end stage renal disease) on dialysis: Status: Acute Plan 76-year-old female with past medical history paroxysmal AFib, ESRD on dialysis, among other medical problems presents to the hospital with complaints of insomnia and increased confusion found to have encephalopathy and urinary tract infection # encephalopathy - most likely toxic metabolic - likely multifactorial secondary to UTI, delirium, as well as psychosis in the setting of recent prednisone use - will treat with IV antibiotics - will give Seroquel - follow mentation # UTI - positive UA - given encephalopathy will treat with IV antibiotics - follow cultures # delirium - secondary to infection, recent hospitalization, prednisone - treatment as above - monitor mentation # ESRD - IV fluids - consult urology for dialysis # paroxysmal AFib - continue apixaban # hypothyroidism - significantly high TSH - currently on 150 mg of thyroid at home - will increase it to 200 mg - will need follow-up outpatient to 3 weeks to recheck TSH DVT ppx: eliquis Given significant encephalopathy likely secondary to UTI as well as psychosis in the setting of recent hospitalization and prednisone treatment I anticipate a medically necessary to night admission for management and monitoring. This cannot be done outpatient as patient will do poorly Quality Stroke Does the patient have a stroke diagnosis?: No VTE Prior VTE?: No VTE Risk Level:: Medical - moderate - high VTE Device Contraindication: Treatment Not Indicated VTE Drug Contraindication: N/A - Med Ordered
[2021-11-08] VITALS (7 sets, daily range): BP systolic 98–141; BP diastolic 44–78; PULSE 67–78; RESP 14–18; TEMP 36.4–36.7; O2SAT 94–98; BMI 32.8
--- NOTE | 2021-11-08 01:04 | PC.NURSE ---
Pt difficult IV access, 2 RN's attempted IV placement and failed. MD Gonzalez made aware, per MD IV fluids and meds can be held at this time. Pt has good PO intake, tolerated dinner and ate well. Pt drinks fluids without issues. Pt tolerated PO meds including PO abx earlier well.
--- NOTE | 2021-11-08 04:14 | PC.NURSE ---
pt cleaned, linens changed,pt repositioned.
[2021-11-08] MEDS: Lactated Ringers 1,000 ML 100 ML IVCONT ×2 (05:02→20:29)
[2021-11-08 06:01] LABS: MANUAL DIFF FLAG NO
[2021-11-08 06:08] LABS: Basophils Absolute Auto 0.1 X10*3/uL (0.0-0.2); Basophils Percent Auto 0.6 % (0-2); Eosinophils Absolute Auto 0.1 X10*3/uL (0.0-0.4); Eosinophils Percent Auto 0.7 % (0-4); Hematocrit 32.5 % (37.0-47.0); Hemoglobin 9.9 g/dl (12.0-16.0); Imm Gran Abs Auto 0.08 X10*3/uL (0.00-0.03); Imm Gran Pct Auto 0.6 % (0.0-0.4); Lymphocytes Absolute Auto 1.3 X10*3/uL (1.2-4.9); Lymphocytes Percent Auto 10.5 % (20-40); Mean Corpuscular HGB Conc 30.5 g/dl (31.0-35.0); Mean Corpuscular Hemoglobin 30.6 pg (27.0-33.0); Mean Corpuscular Volume 100.3 fL (80.0-98.0); Mean Platelet Volume 9.6 fL (9.4-12.3); Monocytes Absolute Auto 1.3 X10*3/uL (0.1-1.2); Monocytes Percent Auto 10.9 % (2-11); Neutrophils Absolute Auto 9.5 x10*3/uL (2.0-8.3); Neutrophils Percent Auto 76.7 % (45-73); Platelet Count 374 X10*3/uL (160-400); Red Blood Count 3.24 X10*6/uL (4.20-5.50); Red Cell Distribution Width 16.1 % (11.0-16.0); White Blood Count 12.4 X10*3/uL (4.8-10.8)
[2021-11-08 07:04] LABS: Anion Gap 23 (12-20); Blood Urea Nitrogen 98 mg/dL (9-16); Calcium 10.1 mg/dL (8.4-10.2); Carbon Dioxide 19 mmol/L (22-29); Chloride 105 mmol/L (96-108); Estimated Glomerular Filt Rate 6; Glucose Random 102 mg/dL (60-115); Potassium 6.4 mmol/L (3.3-5.1); Sodium 141 mmol/L (135-145)
[2021-11-08] MEDS: Dronedarone HCl 400 MG TABLET PO ×2 (08:29→20:30)
[2021-11-08] MEDS: Levothyroxine Sodium 200 MCG TABLET PO (08:30)
[2021-11-08] MEDS: Sevelamer Carbonate Tablet 800 MG TABLET 1600 MG PO ×3 (08:30→17:12)
[2021-11-08] MEDS: Midodrine HCl 5 MG TABLET PO ×2 (08:33→20:30)
[2021-11-08] MEDS: Benzonatate 100 MG CAPSULE PO ×3 (08:33→20:30)
[2021-11-08] MEDS: Apixaban 2.5 MG TABLET PO ×2 (08:33→20:30)
--- NOTE | 2021-11-08 08:53 | PC.NURSE ---
Pt oriented to person and place. talking repeatedly about her hair mixer. Unable to keep thread of conversation with this RN. taking pills whole with water w/o diff. stating repeatedly that she needs to urinate but when PCT put her on bedpan was unable to void. prepared for transport to dialysis and then floor.
--- NOTE | 2021-11-08 08:55 | PC.NURSE ---
enroute to dialysis with tele pack and PCT Guerda.
--- NOTE | 2021-11-08 09:21 | MHC.CM.PN ---
Patient transferred to HD before she could be seen by case management. Will attempt to see again. Continue to monitor for d/c needs.
--- NOTE | 2021-11-08 09:38 | MHC.CARE ---
Per ER Physician Documentation: Dr Herrera, psychiatrist, who knows patient well, states that he is concerned that patient is actually in delirium rather than psychosis. States the patient is intermittently lucid. Please re-consult CARE Team if still presenting with psychosis once delirium resolves
--- NOTE | 2021-11-08 10:10 | PC.NURSE ---
Rn to rn with Khurram on [facility].
--- NOTE | 2021-11-08 14:40 | W.PM.IDCN ---
History of Present Illness Data of Consult Service Date: 11/08/21 Requesting physician: Matthew Adorno Primary Care Provider: MD RENETTA Mas Reason for consult: UTI She presents with confusion per family, She was discharged on 11/02 after treatment with Prednisone for inflammatory arthritis. She has enterobacter aerogenes in urine. Review of Systems Review of Systems: Yes Unobtainable due to mental status PMFSH Past Medical History Medical History Abdominal pain Acute UTI Arrhythmia Arthritis AV fistula Bacteremia due to Klebsiella pneumoniae Bipolar 1 disorder Bipolar disorder Bladder cancer Bowel obstruction Breast cancer Bronchopneumonia C. difficile diarrhea Cancer Chronic nausea Chronic respiratory failure COPD (chronic obstructive pulmonary disease) COVID-19 vaccine administered Dialysis patient Diarrhea Dysphagia ESRD (end stage renal disease) ESRD (end stage renal disease) on dialysis History of 2018 novel coronavirus disease (COVID-19) Hx of hypotension Hx of radiation therapy Hydronephrosis Hyperkalemia Hypothyroidism Invasive ductal carcinoma of breast Lab test negative for COVID-19 virus Lab test positive for detection of COVID-19 virus Leukocytosis MSSA bacteremia Paroxysmal A-fib Poor appetite Positive FIT (fecal immunochemical test) Pulmonary emboli Renal failure SBO (small bowel obstruction) Seizure SIRS (systemic inflammatory response syndrome) Thyroid disease Ureteral cancer Vomiting Wears dentures Family History Family History Father Dementia Mother Bipolar 1 disorder Brother Heart attack Other Mental health disorder Family history: reviewed and not pertinent Surgical History Surgical History History of abdominal surgery History of appendectomy History of back surgery History of bladder surgery (~06/2020) History of cholecystectomy History of esophagogastroduodenoscopy (EGD) History of hand surgery History of lumpectomy of left breast History of lumpectomy of right breast History of tonsillectomy Hx of colonoscopy Hx of foot surgery Social History Social History Household Members: Unknown / Unable to assess Caregiver staying overnight: No Housing: House Are you a primary daycare worker to a significant other at home: No Unable to assess alcohol history related to: Unable to respond Alcohol intake: never Patient Tobacco Use Status: Former Tobacco user Quit Date: 4 years ago Tobacco use type: Cigarette Cigarette Packs Per Day: 1.5 Cigarettes Per Day: 30.0 Years Smoked: 50 e-Cigarette/Vaping Use: Never Used Second Hand Smoke Exposure: No Advance Directives Date on File: 01/24/21 service: No Current occupational status: retired and disabled Sexual orientation: Straight/Heterosexual Cognitive needs: Yes (Walker/Wheelchair) Hearing needs: No Vision needs: Yes (readng glasses) Meds Allergies Allergy/AdvReac Type Severity Reaction Status Date / Time oxycodone Allergy Severe Anaphylaxis Verified 12/04/21 11:58 adhesive tape Allergy Intermediate Blister Verified 11/13/21 21:04 aspirin Allergy Intermediate RASH Verified 11/13/21 21:04 benztropine Allergy Intermediate RASH Verified 11/13/21 21:04 NSAIDS (Non-Steroidal Allergy Intermediate RASH Verified 11/13/21 21:04 Anti-Inflamma ziprasidone Allergy Intermediate UNKNOWN Verified 11/13/21 21:04 doxycycline AdvReac Vomiting Verified 11/13/21 21:04 Active Medications: Current Medications Acetaminophen (Acetaminophen 325 Mg Tablet) 650 mg PO BID PRN PRN Reason: Pain (Scale Score 1-3) Albuterol Sulfate (Albuterol Sulfate 90 Mcg 8 Gm Inhaler) 2 puff INHALE Q4H PRN PRN Reason: Wheezing Apixaban (Apixaban 2.5 Mg Tablet) 2.5 mg PO BID [facility] Last Admin: 11/08/21 08:33 Dose: 2.5 mg Documented by: Benzonatate (Benzonatate 100 Mg Capsule) 100 mg PO TID [facility] Last Admin: 11/08/21 08:33 Dose: 100 mg Documented by: Clonazepam (Clonazepam 1 Mg Tablet) 1 mg PO BEDTIME [facility] Last Admin: 11/07/21 20:12 Dose: 1 mg Documented by: Clozapine (Clozapine 100 Mg Tablet) 150 mg PO BEDTIME [facility] Last Admin: 11/07/21 20:38 Dose: 150 mg Documented by: Docusate Sodium (Docusate Sodium 100 Mg Capsule) 100 mg PO DAILY PRN PRN Reason: Constipation Dronedarone (Dronedarone Hcl 400 Mg Tablet) 400 mg PO BID [facility] Last Admin: 11/08/21 08:29 Dose: 400 mg Documented by: Hydrocortisone (Hydrocortisone 1 % Cream 28.35 Gm Tube) 1 appl TOPICAL BID PRN PRN Reason: skin irritation Hydroxyzine HCl (Hydroxyzine Hcl 50 Mg Tablet) 50 mg PO BEDTIME PRN PRN Reason: for insomnia Lactated Ringer's (Lr) 1,000 mls @ 100 mls/hr IVCONT .Q10H [facility] Last Admin: 11/08/21 05:02 Dose: 100 mls/hr Documented by: Meropenem 500 mg/ Sodium (Chloride) 50 mls @ 100 mls/hr IV DAILY@1645 [facility] Lamotrigine (Lamotrigine 100 Mg Tablet) 150 mg PO BEDTIME [facility] Last Admin: 11/07/21 20:12 Dose: 150 mg Documented by: Levothyroxine Sodium (Levothyroxine Sodium 200 Mcg Tablet) 200 mcg PO DAILY@0600 [facility] Last Admin: 11/08/21 08:30 Dose: 200 mcg Documented by: Melatonin (Melatonin 3 Mg Tablet) 6 mg PO BEDTIME PRN PRN Reason: Insomnia Midodrine (Midodrine Hcl 5 Mg Tablet) 5 mg PO BID [facility] Last Admin: 11/08/21 08:33 Dose: 5 mg Documented by: Patient Own Medication ( Umeclidinium- Vilanterol [Anoro Ellipta] 62.5-25 Mcg /Actuation) 1 each INHALE RDAILY [facility] Last Admin: 11/08/21 08:30 Dose: 1 each Documented by: Ondansetron HCl (Ondansetron Hcl 4 Mg/2 Ml Vial) 4 mg IVPUSH Q8H PRN PRN Reason: Nausea and Vomiting Pharmacy Consult (Consult Rx Perform Med Rec) 1 each MISCELLANE ONCE PRN PRN Reason: Consult order Pharmacy Consult (Consult Rx Perform Med Rec) 1 each MISCELLANE ONCE PRN PRN Reason: Consult order Sevelamer Carbonate (Sevelamer Carbonate Tablet 800 Mg Tablet) 1,600 mg PO TIDWM [facility] Last Admin: 11/08/21 08:30 Dose: 1,600 mg Documented by: Sodium Chloride (0.9 % Sodium Chloride Flush 3 Ml Syringe) 3 ml IVFLUSH QSHIFT [facility] Last Admin: 11/08/21 08:30 Dose: Not Given Documented by: Tamoxifen Citrate (Tamoxifen Citrate 10 Mg Tablet) 20 mg PO DAILY@1400 [facility] Last Admin: 11/07/21 13:45 Dose: 20 mg Documented by: Home Medications Medication Instructions Recorded Confirmed Last Taken Type clonazepam 1 mg tablet 1 mg PO BEDTIME 05/21/20 11/30/21 07/14/21 History lamotrigine 150 mg tablet 150 mg PO BEDTIME 05/21/20 11/30/21 10/18/21 History acetaminophen 325 mg tablet 650 mg PO BID PRN 05/22/20 11/30/21 03/19/21 History tamoxifen 20 mg tablet 20 mg PO DAILY@1400 07/15/21 11/30/21 10/19/21 09:00 History apixaban 2.5 mg tablet (Eliquis) 2.5 mg PO BID 09/03/21 11/30/21 11/30/21 History sevelamer carbonate 800 mg tablet 1,600 mg PO TIDWM tab 09/27/21 11/30/21 11/30/21 History dronedarone 400 mg tablet (Multaq) 1 tab PO BID 10/20/21 11/30/21 11/30/21 History albuterol sulfate 90 mcg/actuation 2 puff INHALATION Q4-6H PRN 11/01/21 11/30/21 Unknown History aerosol inhaler clozapine 100 mg tablet 200 mg PO BEDTIME 11/01/21 11/30/21 Unknown History levothyroxine 150 mcg tablet 1 tab PO DAILY 11/01/21 11/30/21 11/30/21 History melatonin 3 mg tablet 6 mg PO DAILY PRN 11/01/21 11/30/21 Unknown History umeclidinium 62.5 mcg-vilanterol 1 puff INHALATION DAILY 11/01/21 11/30/21 Unknown History 25 mcg/actuation powdr for inhalation (Anoro Ellipta) clozapine 25 mg tablet 2 tab PO BID 11/30/21 11/30/21 11/30/21 History Physical Exam Vital Signs: Vital Signs: Last Vital Signs Temp 97.6 F 11/08/21 11:45 Pulse 72 11/08/21 11:45 Resp 18 11/08/21 11:45 BP 110/56 L 11/08/21 11:45 Pulse Ox 94 11/08/21 07:49 BMI result Body Mass Index 32.9 Const: General: cooperative Eyes: General: appearance normal, both eyes and all related structures Resp: Effort & Inspection: normal respiratory effort Cardio: Rate: regular rate Rhythm: regular rhythm Heart sounds: Murmur heart sound present (2/6 ROSE) GI: Palpation (GI): Soft to palpation and nontender Extrem: Other: moves all extremities Results Labs CBC & Chem 7: 11/10/21 06:22 11/12/21 06:22 Labs: Short CBC 11/08/21 Range/Units 05:56 WBC 12.4 H (4.8-10.8) X10*3/uL Hgb 9.9 L (12.0-16.0) g/dl Hct 32.5 L (37.0-47.0) % Plt Count 374 (160-400) X10*3/uL BMP 11/08/21 05:56 Sodium 141 Potassium 6.4 H* D Chloride 105 Carbon Dioxide 19 L BUN 98 H D Creatinine 6.97 H* Calcium 10.1 Microbiology Microbiology Results: Microbiology 11/06/21 09:14 Blood - Venous Blood Culture - Preliminary No growth after 48 hours. 11/06/21 09:14 Blood - Venous Blood Culture - Preliminary No growth after 48 hours. 11/06/21 00:00 Urine clean catch - Urine zarate top Urine Culture - Final Enterobacter aerogenes Assessment and Plan (1) Delirious: Status: Resolved (2) Encephalopathy: Status: Resolved THis is probably resistant UTI THere is less likely steroid contribution since off now (3) Urinary tract infection: Status: Resolved (4) ESRD (end stage renal disease) on dialysis: Plan Would continue Merem She will likely need 10-14 outpatient Ertapenem Await blood cultures
[2021-11-08] MEDS: Tamoxifen Citrate 10 MG TABLET 20 MG PO (15:36)
[2021-11-08] MEDS: 0.9 % Sodium Chloride Flush 3 ML SYRINGE IVFLUSH ×2 (17:14→20:30)
[2021-11-08] MEDS: clonazePAM 1 MG TABLET PO (20:30)
[2021-11-08] MEDS: cloZAPine 100 MG TABLET 150 MG PO (20:30)
[2021-11-08] MEDS: lamoTRIgine 100 MG TABLET 150 MG PO (20:30)
[2021-11-09] VITALS: BP 120/56; PULSE 69; RESP 17; TEMP 36.4; O2SAT 95
--- NOTE | 2021-11-09 00:23 | CONS_ITS ---
DATE OF SERVICE: REASON FOR CONSULTATION: I was asked to see patient to assist in evaluation and management of patient's dialysis needs in the setting of presenting to the hospital yesterday complaining of difficulty sleeping. HISTORY OF PRESENT ILLNESS: In summary, she is a 76-year-old ESRD patient with history of hyperlipidemia, ESRD, dialyzed on Friday, , Friday, paroxysmal Afib, breast cancer, hypothyroidism, anxiety, depression, bipolar disorder, history of PE and maintain on Eliquis, small-bowel obstruction, seizure, and COPD. Patient was brought to the emergency room by her , apparently was confused and having some insomnia. Patient has had multiple hospitalizations, last hospitalized November 02, for inflammatory arthritis. She presently is feeling a bit better. She denies any fever, sweats or chills. PAST MEDICAL HISTORY: Quite extensive and as noted above. MEDICATIONS ON ADMISSION: Noted in the admitting notes. ALLERGIES: SHE HAS MULTIPLE DRUG ALLERGIES, ALSO NOTED IN ADMITTING NOTES. SOCIAL HISTORY: She is an ex-smoker. No alcohol or illicit drug use. FAMILY HISTORY: As noted above. REVIEW OF SYSTEMS: As noted above. PHYSICAL EXAMINATION: VITAL SIGNS: Blood pressure 120/60 with a heart rate in 70s. HEAD: Atraumatic and normocephalic. NECK: Supple. Mucous membranes moist. LUNGS: Breath sounds bilaterally. CARDIAC: Regular rate and rhythm. ABDOMEN: Soft. EXTREMITIES: Show no edema. She has left IJ PermCath in place. LABORATORY DATA: Hemoglobin 9.9, hematocrit 32.5, white blood cell count 12.4, sodium 141, potassium 6.4, chloride 105, bicarb 19. IMPRESSION: END STAGE RENAL DISEASE PATIENT ADMITTED TO THE HOSPITAL WITH GENERALIZED WEAKNESS AND ALTERED MENTAL STATUS. 1. End stage renal disease with dialyzer today and keep her on Friday, , Friday schedule. 2. Altered mental status. She is having Psych evaluation. 3. Generalized weakness. SUGGESTIONS: At this time include dialysis today. Continue routine medications. Follow her neurologic exam. Psychiatry is to see the patient as well. MD ENEDELIA Ardon/GIO / [phone]
[2021-11-09 03:55] VITALS: BP 130/62; PULSE 67; RESP 18; TEMP 36.6; O2SAT 96
[2021-11-09] MEDS: Levothyroxine Sodium 200 MCG TABLET PO (05:26)
[2021-11-09] MEDS: Lactated Ringers 1,000 ML 100 ML IVCONT (05:26)
[2021-11-09 07:21] VITALS: BP 140/64; PULSE 70; RESP 20; TEMP 36.7; O2SAT 96
[2021-11-09 07:28] LABS: Hematocrit 28.8 % (37.0-47.0); Hemoglobin 8.8 g/dl (12.0-16.0); Mean Corpuscular HGB Conc 30.6 g/dl (31.0-35.0); Mean Corpuscular Hemoglobin 30.2 pg (27.0-33.0); Mean Platelet Volume 9.7 fL (9.4-12.3); Platelet Count 304 X10*3/uL (160-400); Red Blood Count 2.91 X10*6/uL (4.20-5.50); Red Cell Distribution Width 15.9 % (11.0-16.0); White Blood Count 9.3 X10*3/uL (4.8-10.8)
[2021-11-09 07:48] LABS: Anion Gap 14 (12-20); Blood Urea Nitrogen 35 mg/dL (9-16); Calcium 8.6 mg/dL (8.4-10.2); Carbon Dioxide 20 mmol/L (22-29); Chloride 103 mmol/L (96-108); Creatinine Clr Calc Pharmacy 12.2; Estimated Glomerular Filt Rate 11; Glucose Random 66 mg/dL (60-115); Potassium 5.3 mmol/L (3.3-5.1); Sodium 132 mmol/L (135-145)
--- NOTE | 2021-11-09 08:10 | P.PNIM_ITS ---
Subjective Subjective Date of Service: 11/09/21 Interval History: the patient was seen and evaluated this morning Laying in bed, still disoriented and confused Urine growing Enterobacter No reported other overnight events. Systemic review: No fever, chills or weakness No chest pain, palpitation No shortness of breath or coughing No abdominal pain, nausea or vomiting No urinary symptoms No any rash or wounds Physical Exam Vital Signs: Vital Signs: Last Vital Signs Temp 98.1 F 11/09/21 07:21 Pulse 70 11/09/21 07:21 Resp 20 11/09/21 07:21 BP 140/64 H 11/09/21 07:21 Pulse Ox 96 11/09/21 07:21 BMI result Body Mass Index 32.8 Const: Other: Constitutional : Alert, interactive, not in distress Neck : Normal inspection, Supple, central line in her neck Cardiovascular : RRR, S1 S2, no lower extremity edema Respiratory : Fair bilateral air entry, no crackles, wheezes or rhonchi Gastrointestinal: soft, lax, Normal bowel sounds, Non tender Skin : Warm, Dry, PermCath in place Neurological : Alert & disoriented, No focal deficit Objective Data Active Medications Acetaminophen (Acetaminophen 325 Mg Tablet) 650 mg PO BID PRN PRN Reason: Pain (Scale Score 1-3) Albuterol Sulfate (Albuterol Sulfate 90 Mcg 8 Gm Inhaler) 2 puff INHALE Q4H PRN PRN Reason: Wheezing Apixaban (Apixaban 2.5 Mg Tablet) 2.5 mg PO BID [facility] Last Admin: 11/08/21 20:30 Dose: 2.5 mg Documented by: KARINA Benzonatate (Benzonatate 100 Mg Capsule) 100 mg PO TID [facility] Last Admin: 11/08/21 20:30 Dose: 100 mg Documented by: KARINA Clonazepam (Clonazepam 1 Mg Tablet) 1 mg PO BEDTIME [facility] Last Admin: 11/08/21 20:30 Dose: 1 mg Documented by: KARINA Clozapine (Clozapine 100 Mg Tablet) 150 mg PO BEDTIME [facility] Last Admin: 11/08/21 20:30 Dose: 150 mg Documented by: KARINA Docusate Sodium (Docusate Sodium 100 Mg Capsule) 100 mg PO DAILY PRN PRN Reason: Constipation Dronedarone (Dronedarone Hcl 400 Mg Tablet) 400 mg PO BID [facility] Last Admin: 11/08/21 20:30 Dose: 400 mg Documented by: KARINA Hydrocortisone (Hydrocortisone 1 % Cream 28.35 Gm Tube) 1 appl TOPICAL BID PRN PRN Reason: skin irritation Hydroxyzine HCl (Hydroxyzine Hcl 50 Mg Tablet) 50 mg PO BEDTIME PRN PRN Reason: for insomnia Lactated Ringer's (Lr) 1,000 mls @ 100 mls/hr IVCONT .Q10H [facility] Last Admin: 11/09/21 05:26 Dose: 100 mls/hr Documented by: KARINA Meropenem 500 mg/ Sodium (Chloride) 50 mls @ 100 mls/hr IV DAILY@1645 [facility] Last Infusion: 11/08/21 17:09 Dose: 0 mls/hr Documented by: BETSY Lamotrigine (Lamotrigine 100 Mg Tablet) 150 mg PO BEDTIME [facility] Last Admin: 11/08/21 20:30 Dose: 150 mg Documented by: KARINA Levothyroxine Sodium (Levothyroxine Sodium 200 Mcg Tablet) 200 mcg PO DAILY@0600 [facility] Last Admin: 11/09/21 05:26 Dose: 200 mcg Documented by: KARINA Melatonin (Melatonin 3 Mg Tablet) 6 mg PO BEDTIME PRN PRN Reason: Insomnia Midodrine (Midodrine Hcl 5 Mg Tablet) 5 mg PO BID [facility] Last Admin: 11/08/21 20:30 Dose: 5 mg Documented by: KARINA Patient Own Medication ( Umeclidinium- Vilanterol [Anoro Ellipta] 62.5-25 Mcg /Actuation) 1 each INHALE RDAILY [facility] Last Admin: 11/08/21 08:30 Dose: 1 each Documented by: GUILLERMO Ondansetron HCl (Ondansetron Hcl 4 Mg/2 Ml Vial) 4 mg IVPUSH Q8H PRN PRN Reason: Nausea and Vomiting Pharmacy Consult (Consult Rx Perform Med Rec) 1 each MISCELLANE ONCE PRN PRN Reason: Consult order Pharmacy Consult (Consult Rx Perform Med Rec) 1 each MISCELLANE ONCE PRN PRN Reason: Consult order Sevelamer Carbonate (Sevelamer Carbonate Tablet 800 Mg Tablet) 1,600 mg PO TIDWM [facility] Last Admin: 11/08/21 17:12 Dose: 1,600 mg Documented by: BETSY Sodium Chloride (0.9 % Sodium Chloride Flush 3 Ml Syringe) 3 ml IVFLUSH QSHIFT [facility] Last Admin: 11/08/21 20:30 Dose: 3 ml Documented by: KARINA Tamoxifen Citrate (Tamoxifen Citrate 10 Mg Tablet) 20 mg PO DAILY@1400 [facility] Last Admin: 11/08/21 15:36 Dose: 20 mg Documented by: BETSY Labs CBC & Chem 7: 11/09/21 06:42 11/09/21 06:42 Labs: Laboratory Results - last 24 hr 11/09/21 11/09/21 06:42 06:42 MCV 99.0 H MCH 30.2 MCHC 30.6 L RDW 15.9 Plt Count 304 MPV 9.7 Absolute Nucleated RBC 0.000 Nucleated RBC % (auto) 0.0 Anion Gap 14 Estim Creat Clear Calc 12.2 Estimated GFR 11 Random Glucose 66 Calcium 8.6 D Microbiology Microbiology Results: Microbiology 11/06/21 09:14 Blood Culture - Preliminary Blood - Venous No growth after 48 hours. 11/06/21 09:14 Blood Culture - Preliminary Blood - Venous No growth after 48 hours. 11/06/21 00:00 Urine Culture - Final Urine clean catch - Urine zarate top Enterobacter aerogenes Assessment and Plan (1) Delirious: Status: Acute (2) Urinary tract infection: Status: Acute (3) Encephalopathy: Status: Acute (4) ESRD (end stage renal disease) on dialysis: Status: Acute Plan 76-year-old female with past medical history paroxysmal AFib, ESRD on dialysis, among other medical problems presents to the hospital with complaints of insomnia and increased confusion found to have encephalopathy and urinary tract infection # toxic metabolic encephalopathy likely multifactorial secondary to UTI, delirium, w recent prednisone use Continue IV antibiotics As needed Seroquel Recurrent redirection # ESBL E coliUTI Antibiotics changed to meropenem to place a PICC line Id input appreciated, total 2 weeks of antibiotics # ESRD, hyperkalemia Nephrology follow-up Dialysis MWF To give Lokelma today Follow BMP, to get corrected by dialysis # paroxysmal AFib continue apixaban # hypothyroidism Has high TSH Thyroxine increase it to 200 mg will need follow-up outpatient to 3 weeks to recheck TSH DVT ppx: eliquis Need of hospital stay, patient still disoriented and cannot manage out of the hospital with risk of decompensation. Will need to continue IV antibiotics and drainage for safe discharge plan. Quality Stroke Does the patient have a stroke diagnosis?: No VTE Prior VTE?: No VTE Risk Level:: Medical - moderate - high VTE Device Contraindication: Treatment Not Indicated VTE Drug Contraindication: N/A - Med Ordered
[2021-11-09] MEDS: Benzonatate 100 MG CAPSULE PO ×3 (09:12→19:52)
[2021-11-09] MEDS: 0.9 % Sodium Chloride Flush 3 ML SYRINGE IVFLUSH ×3 (09:12→19:53)
[2021-11-09] MEDS: Dronedarone HCl 400 MG TABLET PO ×2 (09:12→19:53)
[2021-11-09] MEDS: Sevelamer Carbonate Tablet 800 MG TABLET 1600 MG PO ×3 (09:13→17:04)
[2021-11-09] MEDS: Sodium Zirconium Cyclosilicate 10 GM POWD.PACK PO (09:13)
[2021-11-09] MEDS: Apixaban 2.5 MG TABLET PO ×2 (09:13→19:52)
[2021-11-09 11:26] VITALS: BP 127/80; PULSE 78; RESP 20; TEMP 37.2; O2SAT 95
--- NOTE | 2021-11-09 11:30 | MHC.CM.PN ---
met with pt spoke with pts who reportsd that ot is active with [facility] ,goes to dialysis in .pt s drives her pt is vax x 2 pt will need iv antibiotics 7 to to 10days is agreeable to this plan referrals made
--- NOTE | 2021-11-09 12:13 | PM.PNNEP ---
Subjective Subjective Date of Service: 11/09/21 Principal diagnosis: Pt is confused Physical Exam Vital Signs: Vital Signs: Last Vital Signs Temp 98.9 F 11/09/21 11:26 Pulse 78 11/09/21 11:26 Resp 20 11/09/21 11:26 BP 127/80 11/09/21 11:26 Pulse Ox 95 11/09/21 11:26 BMI result Body Mass Index 32.8 Const General:?cooperative Eyes General:?appearance normal, both eyes and all related structures Resp Effort & Inspection:?normal respiratory effort Cardio Rate:?regular rate Rhythm:?regular rhythm Heart sounds:?Murmur heart sound present (2/6 ROSE) GI Palpation (GI):?Soft to palpation and nontender Extrem Other: moves all extremities Objective Data Labs CBC & Chem 7: 11/09/21 06:42 11/09/21 06:42 Labs: Laboratory Results - last 24 hr 11/09/21 11/09/21 06:42 06:42 WBC 9.3 RBC 2.91 L Hgb 8.8 L Hct 28.8 L MCV 99.0 H MCH 30.2 MCHC 30.6 L RDW 15.9 Plt Count 304 MPV 9.7 Absolute Nucleated RBC 0.000 Nucleated RBC % (auto) 0.0 Sodium 132 L Potassium 5.3 H Chloride 103 Carbon Dioxide 20 L Anion Gap 14 BUN 35 H D Creatinine 3.99 H Estim Creat Clear Calc 12.2 Estimated GFR 11 Random Glucose 66 Calcium 8.6 D Microbiology Microbiology Results: Microbiology 11/06/21 09:14 Blood - Venous Blood Culture - Preliminary No growth after 48 hours. 11/06/21 09:14 Blood - Venous Blood Culture - Preliminary No growth after 48 hours. 11/06/21 00:00 Urine clean catch - Urine zarate top Urine Culture - Final Enterobacter aerogenes Procedures Date of Service Date of Service: 11/09/21 Assessment & Plan Assessment and plan (1) ESRD (end stage renal disease) on dialysis: Status: Acute (2) Bacteremia due to Klebsiella pneumoniae: Status: Acute Plan 76-year-old female with a past medical history of? hyperlipidemia, ESRD on hemodialysis, history of breast cancer, hypothyroidism, anxiety, depression, bipolar, history of pulmonary embolism, history of SBO, seizures, COPD presented to the hospital after hemodialysis session with a chief complaint of generalized weakness and cough.? Noted to have findings on the CT scan concerning for pneumonia.? Admitted to the hospital for further management. Episode of CP: resolved ESRD: mwf- Now on TTS schedule Anemia: epo as noted GNB w recent ureteral stent: source of infection and doubt Pcath is infected but need to repeat Bld cult Low BPs: cont midrdine REC: Cont HD3x/wk; Abx as noted procrit ordered--xfued yesterday during HD Can get a Mid line as pt is a chronic Permcath patient d/w medical team Will follow with team Time Spent With Patient Time: Total time spent is greater than 50% in coordination of care (as documented) at patient's floor/unit and/or counseling patient: Progress Note: Quality Stroke Does the patient have a stroke diagnosis?: No
--- NOTE | 2021-11-09 13:03 | HO.MIDLINE ---
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 Using ultrasound guidance, CEPHALIC vein access was obtained ON SECOND ATTEMPT BY THIS RN; CEPHALIC VEIN USED FOR MIDLINE INSERTION D/T HX FISTULA AND SCARRING TO INNER ARM. A SINGLE LUMEN, NONPASV, (20G X 10CM) MIDLINE was positioned. The procedure was performed in S-272. Ultrasound was used to document vein patency and for needle entry. A formal ultrasound picture was recorded. [employer] has released the line for use and it is currently dressed with a StatLock, Tegaderm, and CHG disc. Verification has been performed for blood return and line patency. Arm Circumference: 25 CM Equipment: [employer] POWERGLIDE ST Catheter Type: SINGLE LUMEN, NONPASV, (20G X 10CM) Lot #: [id number]
[2021-11-09] MEDS: Tamoxifen Citrate 10 MG TABLET 20 MG PO (14:29)
[2021-11-09 15:43] VITALS: BP 137/85; PULSE 89; RESP 18; TEMP 36.4; O2SAT 94
[2021-11-09] MEDS: 0.9 % Sodium Chloride Flush 10 ML SYRINGE 5 ML IVFLUSH ×2 (15:47→19:54)
[2021-11-09] MEDS: ondansetron HCL 4 MG/2 ML VIAL IVPUSH (17:33)
[2021-11-09 19:08] VITALS: BP 141/74; PULSE 86; RESP 17; TEMP 37.5; O2SAT 94
[2021-11-09] MEDS: cloZAPine 100 MG TABLET 150 MG PO (19:52)
[2021-11-09] MEDS: clonazePAM 1 MG TABLET PO (19:52)
[2021-11-09] MEDS: Midodrine HCl 5 MG TABLET PO (19:52)
[2021-11-09] MEDS: lamoTRIgine 100 MG TABLET 150 MG PO (19:53)
[2021-11-10] VITALS: BP 132/62; PULSE 98; RESP 18; TEMP 36.9; O2SAT 97
[2021-11-10] MEDS: Lactated Ringers 1,000 ML 100 ML IVCONT (03:00)
[2021-11-10 04:00] VITALS: BP 130/59; PULSE 85; RESP 18; TEMP 36.7; O2SAT 98
[2021-11-10] MEDS: Levothyroxine Sodium 200 MCG TABLET PO (05:31)
[2021-11-10 06:45] LABS: Hematocrit 29.2 % (37.0-47.0); Hemoglobin 9.1 g/dl (12.0-16.0); Mean Corpuscular HGB Conc 31.2 g/dl (31.0-35.0); Mean Corpuscular Hemoglobin 30.3 pg (27.0-33.0); Mean Corpuscular Volume 97.3 fL (80.0-98.0); Mean Platelet Volume 9.5 fL (9.4-12.3); Platelet Count 282 X10*3/uL (160-400); Red Cell Distribution Width 15.6 % (11.0-16.0)
[2021-11-10 07:28] LABS: Anion Gap 14 (12-20); Blood Urea Nitrogen 24 mg/dL (9-16); Calcium 8.5 mg/dL (8.4-10.2); Carbon Dioxide 26 mmol/L (22-29); Chloride 101 mmol/L (96-108); Creatinine Clr Calc Pharmacy 17.4; Estimated Glomerular Filt Rate 17; Glucose Random 79 mg/dL (60-115); Sodium 137 mmol/L (135-145)
[2021-11-10 07:41] LABS: Potassium 3.5 mmol/L (3.3-5.1)
[2021-11-10] MEDS: Apixaban 2.5 MG TABLET PO ×2 (10:18→20:58)
[2021-11-10] MEDS: Sevelamer Carbonate Tablet 800 MG TABLET 1600 MG PO ×3 (10:18→16:13)
[2021-11-10] MEDS: Dronedarone HCl 400 MG TABLET PO ×2 (10:18→20:57)
[2021-11-10] MEDS: Benzonatate 100 MG CAPSULE PO ×2 (10:18→20:57)
[2021-11-10] MEDS: Midodrine HCl 5 MG TABLET PO ×2 (10:18→20:57)
[2021-11-10] MEDS: 0.9 % Sodium Chloride Flush 3 ML SYRINGE IVFLUSH ×3 (10:19→16:19)
[2021-11-10] MEDS: 0.9 % Sodium Chloride Flush 10 ML SYRINGE 5 ML IVFLUSH ×3 (10:19→20:58)
[2021-11-10 11:38] VITALS: BP 138/61; PULSE 95; RESP 18; TEMP 36.9; O2SAT 94
--- NOTE | 2021-11-10 12:44 | P.PNIM_ITS ---
Subjective Subjective Date of Service: 11/10/21 Interval History: the patient was seen and evaluated this morning Laying in bed, still disoriented and confused Having hallucinations and flight of ideas Urine growing Enterobacter No reported other overnight events. Systemic review: No fever, chills or weakness No chest pain, palpitation No shortness of breath or coughing No abdominal pain, nausea or vomiting No urinary symptoms No any rash or wounds Physical Exam Vital Signs: Vital Signs: Last Vital Signs Temp 98.4 F 11/10/21 11:38 Pulse 95 11/10/21 11:38 Resp 18 11/10/21 11:38 BP 138/61 11/10/21 11:38 Pulse Ox 94 11/10/21 11:38 BMI result Body Mass Index 32.8 Const: Other: Constitutional : Alert, interactive, not in distress Neck : Normal inspection, Supple, central line in her neck Cardiovascular : RRR, S1 S2, no lower extremity edema Respiratory : Fair bilateral air entry, no crackles, wheezes or rhonchi Gastrointestinal: soft, lax, Normal bowel sounds, Non tender Skin : Warm, Dry, PermCath in place Neurological : Alert & disoriented, No focal deficit Psychiatric, hallucinating, pressure speak and flight of ideas Objective Data Active Medications Acetaminophen (Acetaminophen 325 Mg Tablet) 650 mg PO BID PRN PRN Reason: Pain (Scale Score 1-3) Albuterol Sulfate (Albuterol Sulfate 90 Mcg 8 Gm Inhaler) 2 puff INHALE Q4H PRN PRN Reason: Wheezing Apixaban (Apixaban 2.5 Mg Tablet) 2.5 mg PO BID [facility] Last Admin: 11/10/21 10:18 Dose: 2.5 mg Documented by: KACI Benzonatate (Benzonatate 100 Mg Capsule) 100 mg PO TID [facility] Last Admin: 11/10/21 10:18 Dose: 100 mg Documented by: KACI Clonazepam (Clonazepam 1 Mg Tablet) 1 mg PO BEDTIME [facility] Last Admin: 11/09/21 19:52 Dose: 1 mg Documented by: JEVON Clozapine (Clozapine 100 Mg Tablet) 150 mg PO BEDTIME [facility] Last Admin: 11/09/21 19:52 Dose: 150 mg Documented by: ANTZULAY Docusate Sodium (Docusate Sodium 100 Mg Capsule) 100 mg PO DAILY PRN PRN Reason: Constipation Dronedarone (Dronedarone Hcl 400 Mg Tablet) 400 mg PO BID [facility] Last Admin: 11/10/21 10:18 Dose: 400 mg Documented by: KACI Hydrocortisone (Hydrocortisone 1 % Cream 28.35 Gm Tube) 1 appl TOPICAL BID PRN PRN Reason: skin irritation Hydroxyzine HCl (Hydroxyzine Hcl 50 Mg Tablet) 50 mg PO BEDTIME PRN PRN Reason: for insomnia Meropenem 500 mg/ Sodium (Chloride) 50 mls @ 100 mls/hr IV DAILY@1645 [facility] Last Infusion: 11/09/21 17:39 Dose: 0 mls/hr Documented by: JAYDEN Lamotrigine (Lamotrigine 100 Mg Tablet) 150 mg PO BEDTIME [facility] Last Admin: 11/09/21 19:53 Dose: 150 mg Documented by: ANTZULAY Levothyroxine Sodium (Levothyroxine Sodium 200 Mcg Tablet) 200 mcg PO DAILY@0600 [facility] Last Admin: 11/10/21 05:31 Dose: 200 mcg Documented by: ANTZULAY Melatonin (Melatonin 3 Mg Tablet) 6 mg PO BEDTIME PRN PRN Reason: Insomnia Midodrine (Midodrine Hcl 5 Mg Tablet) 5 mg PO BID [facility] Last Admin: 11/10/21 10:18 Dose: 5 mg Documented by: KACI Patient Own Medication ( Umeclidinium- Vilanterol [Anoro Ellipta] 62.5-25 Mcg /Actuation) 1 each INHALE RDAILY [facility] Last Admin: 11/10/21 10:19 Dose: 1 each Documented by: KACI Ondansetron HCl (Ondansetron Hcl 4 Mg/2 Ml Vial) 4 mg IVPUSH Q8H PRN PRN Reason: Nausea and Vomiting Last Admin: 11/09/21 17:33 Dose: 4 mg Documented by: JAYDEN Pharmacy Consult (Consult Rx Perform Med Rec) 1 each MISCELLANE ONCE PRN PRN Reason: Consult order Pharmacy Consult (Consult Rx Perform Med Rec) 1 each MISCELLANE ONCE PRN PRN Reason: Consult order Sevelamer Carbonate (Sevelamer Carbonate Tablet 800 Mg Tablet) 1,600 mg PO TIDWM [facility] Last Admin: 11/10/21 10:18 Dose: 1,600 mg Documented by: KACI Sodium Chloride (0.9 % Sodium Chloride Flush 3 Ml Syringe) [facility] Last Admin: 11/10/21 10:19 Dose: 3 ml Documented by: KACI Sodium Chloride (0.9 % Sodium Chloride Flush 10 Ml Syringe) 5 ml IVFLUSH [facility] Last Admin: 11/10/21 10:19 Dose: 5 ml Documented by: KACI Tamoxifen Citrate (Tamoxifen Citrate 10 Mg Tablet) 20 mg PO DAILY@1400 [facility] Last Admin: 11/09/21 14:29 Dose: 20 mg Documented by: JAYDEN Labs CBC & Chem 7: 11/10/21 06:22 11/10/21 06:22 Labs: Laboratory Results - last 24 hr 11/10/21 11/10/21 06:22 06:22 MCV 97.3 MCH 30.3 MCHC 31.2 RDW 15.6 Plt Count 282 MPV 9.5 Absolute Nucleated RBC 0.000 Nucleated RBC % (auto) 0.0 Anion Gap 14 Estim Creat Clear Calc 17.4 Estimated GFR 17 Random Glucose 79 Calcium 8.5 Assessment and Plan (1) Delirious: Status: Acute (2) Encephalopathy: Status: Acute (3) Urinary tract infection: Status: Acute (4) ESRD (end stage renal disease) on dialysis: Status: Acute Plan 76-year-old female with past medical history paroxysmal AFib, ESRD on dialysis, among other medical problems presents to the hospital with complaints of insomnia and increased confusion found to have encephalopathy and urinary tract infection # toxic metabolic encephalopathy likely multifactorial secondary to UTI, delirium, w recent prednisone use Continue IV antibiotics As needed Seroquel Recurrent redirection To get psychiatry evaluation for possible tawny # ESBL E coli UTI Antibiotics changed to meropenem A PICC line in place Id input appreciated, total 2 weeks of antibiotics # ESRD, hyperkalemia Nephrology follow-up Dialysis TTS To give Lokelma today Follow BMP, to get corrected by dialysis # paroxysmal AFib continue apixaban # hypothyroidism Has high TSH Thyroxine increase it to 200 mg will need follow-up outpatient to 3 weeks to recheck TSH DVT ppx: eliquis Need of hospital stay, patient still disoriented and cannot manage out of the hospital with risk of decompensation. Will need to continue IV antibiotics and psychiatry evaluation for safe discharge plan. Quality Stroke Does the patient have a stroke diagnosis?: No VTE Prior VTE?: No VTE Risk Level:: Medical - moderate - high VTE Device Contraindication: Treatment Not Indicated VTE Drug Contraindication: N/A - Med Ordered
[2021-11-10] MEDS: Tamoxifen Citrate 10 MG TABLET 20 MG PO (12:47)
--- NOTE | 2021-11-10 14:30 | PM.PNNEP ---
Subjective Subjective Date of Service: 11/10/21 Principal diagnosis: Pt is confused Interval history: the patient was seen and evaluated this morning Laying in bed, still disoriented and confused Systemic review: No fever, chills or weakness No chest pain, palpitation No shortness of breath or coughing No abdominal pain, nausea or vomiting No urinary symptoms No any rash or wounds Physical Exam Vital Signs: Vital Signs: Last Vital Signs Temp 98.4 F 11/10/21 11:38 Pulse 95 11/10/21 11:38 Resp 18 11/10/21 11:38 BP 138/61 11/10/21 11:38 Pulse Ox 94 11/10/21 11:38 BMI result Body Mass Index 32.8 Constitutional : Alert, interactive, not in distress Neck : Normal inspection, Supple, central line in her neck Cardiovascular : RRR, S1 S2, no lower extremity edema Respiratory :? Fair bilateral air entry,? no crackles, wheezes or rhonchi Gastrointestinal:? soft, lax, Normal bowel sounds, Non tender Skin : Warm, Dry, PermCath in place Neurological : Alert &? disoriented, No focal deficit Psychiatric, hallucinating, pressure speak and flight of ideas Objective Data Labs CBC & Chem 7: 11/10/21 06:22 11/10/21 06:22 Labs: Laboratory Results - last 24 hr 11/10/21 11/10/21 06:22 06:22 WBC 9.0 RBC 3.00 L Hgb 9.1 L Hct 29.2 L MCV 97.3 MCH 30.3 MCHC 31.2 RDW 15.6 Plt Count 282 MPV 9.5 Absolute Nucleated RBC 0.000 Nucleated RBC % (auto) 0.0 Sodium 137 Potassium 3.5 D Chloride 101 Carbon Dioxide 26 Anion Gap 14 BUN 24 H Creatinine 2.80 H Estim Creat Clear Calc 17.4 Estimated GFR 17 Random Glucose 79 Calcium 8.5 Microbiology Microbiology Results: Microbiology 11/06/21 09:14 Blood - Venous Blood Culture - Preliminary No growth after 48 hours. 11/06/21 09:14 Blood - Venous Blood Culture - Preliminary No growth after 48 hours. 11/06/21 00:00 Urine clean catch - Urine zarate top Urine Culture - Final Enterobacter aerogenes Procedures Date of Service Date of Service: 11/10/21 Assessment & Plan Assessment and plan (1) ESRD (end stage renal disease) on dialysis: Status: Acute Plan 76-year-old female with a past medical history of? hyperlipidemia, ESRD on hemodialysis, history of breast cancer, hypothyroidism, anxiety, depression, bipolar, history of pulmonary embolism, history of SBO, seizures, COPD presented to the hospital after hemodialysis session with a chief complaint of generalized weakness and cough.? Noted to have findings on the CT scan concerning for pneumonia.? Admitted to the hospital for further management. Episode of CP: resolved ESRD:HDper schedule Anemia: epo as noted GNB w recent ureteral stent: source of infection Low BPs: cont midrdine REC: Cont HD3x/wk; Abx as noted procrit ordered--xfued early this week during HD Can get a Mid line as pt is a chronic Permcath patient d/w medical team Will follow with team Time Spent With Patient Time: Total time spent is greater than 50% in coordination of care (as documented) at patient's floor/unit and/or counseling patient: Progress Note: Quality Stroke Does the patient have a stroke diagnosis?: No
[2021-11-10 15:08] VITALS: BP 139/63; PULSE 93; RESP 20; TEMP 37.2; O2SAT 93
[2021-11-10] MEDS: ondansetron HCL 4 MG/2 ML VIAL IVPUSH (17:19)
[2021-11-10 19:20] VITALS: PULSE 88; RESP 20; TEMP 36.7; O2SAT 91
[2021-11-10] MEDS: lamoTRIgine 100 MG TABLET 150 MG PO (20:56)
[2021-11-10] MEDS: cloZAPine 100 MG TABLET 150 MG PO (20:57)
[2021-11-10] MEDS: clonazePAM 1 MG TABLET PO (20:57)
[2021-11-10 23:51] VITALS: BP 126/70; PULSE 98; RESP 18; TEMP 36.4; O2SAT 98
[2021-11-11 04:00] VITALS: BP 127/62; PULSE 101; RESP 18; TEMP 36.6; O2SAT 95
[2021-11-11] MEDS: Levothyroxine Sodium 200 MCG TABLET PO (04:16)
[2021-11-11 08:00] VITALS: BP 101/72; PULSE 95; RESP 20; TEMP 36.7; O2SAT 97
[2021-11-11] MEDS: Midodrine HCl 5 MG TABLET PO ×2 (10:48→20:35)
[2021-11-11] MEDS: Sevelamer Carbonate Tablet 800 MG TABLET 1600 MG PO ×3 (10:48→17:38)
[2021-11-11] MEDS: Dronedarone HCl 400 MG TABLET PO ×2 (10:48→20:36)
[2021-11-11] MEDS: Benzonatate 100 MG CAPSULE PO ×3 (10:48→20:35)
[2021-11-11] MEDS: Acetaminophen 325 MG TABLET 650 MG PO (10:49)
[2021-11-11] MEDS: 0.9 % Sodium Chloride Flush 10 ML SYRINGE 5 ML IVFLUSH ×3 (10:50→20:38)
[2021-11-11] MEDS: 0.9 % Sodium Chloride Flush 3 ML SYRINGE IVFLUSH ×3 (10:50→20:38)
[2021-11-11] MEDS: Apixaban 2.5 MG TABLET PO ×2 (10:51→20:37)
--- NOTE | 2021-11-11 12:06 | HO.PM.IMPN ---
Subjective Subjective Date of Service: 11/11/21 Interval History: the patient was seen and evaluated this morning Laying in bed, still disoriented and confused Having hallucinations and flight of ideas reporting having a baby in being in the psych unit No reported other overnight events. Systemic review: No fever, chills or weakness No chest pain, palpitation No shortness of breath or coughing No abdominal pain, nausea or vomiting No urinary symptoms No any rash or wounds Physical Exam Vital Signs: Vital Signs: Last Vital Signs Temp 98.0 F 11/11/21 08:00 Pulse 95 11/11/21 08:00 Resp 20 11/11/21 08:00 BP 101/72 11/11/21 08:00 Pulse Ox 97 11/11/21 08:00 BMI result Body Mass Index 32.8 Const: Other: Constitutional : Alert, interactive, not in distress Neck : Normal inspection, Supple, central line in her neck Cardiovascular : RRR, S1 S2, no lower extremity edema Respiratory : Fair bilateral air entry, no crackles, wheezes or rhonchi Gastrointestinal: soft, lax, Normal bowel sounds, Non tender Skin : Warm, Dry, PermCath in place Neurological : Alert & disoriented, No focal deficit Psychiatric, hallucinating, pressure speak and flight of ideas Objective Data Active Medications Acetaminophen (Acetaminophen 325 Mg Tablet) 650 mg PO BID PRN PRN Reason: Pain (Scale Score 1-3) Last Admin: 11/11/21 10:49 Dose: 650 mg Documented by: LIBORIO Albuterol Sulfate (Albuterol Sulfate 90 Mcg 8 Gm Inhaler) 2 puff INHALE Q4H PRN PRN Reason: Wheezing Apixaban (Apixaban 2.5 Mg Tablet) 2.5 mg PO BID [facility] Last Admin: 11/11/21 10:51 Dose: 2.5 mg Documented by: LIBORIO Benzonatate (Benzonatate 100 Mg Capsule) 100 mg PO TID [facility] Last Admin: 11/11/21 10:48 Dose: 100 mg Documented by: LIBORIO Clonazepam (Clonazepam 1 Mg Tablet) 1 mg PO BEDTIME [facility] Last Admin: 11/10/21 20:57 Dose: 1 mg Documented by: JEVON Clozapine (Clozapine 100 Mg Tablet) 150 mg PO BEDTIME [facility] Last Admin: 11/10/21 20:57 Dose: 150 mg Documented by: JEVON Docusate Sodium (Docusate Sodium 100 Mg Capsule) 100 mg PO DAILY PRN PRN Reason: Constipation Dronedarone (Dronedarone Hcl 400 Mg Tablet) 400 mg PO BID [facility] Last Admin: 11/11/21 10:48 Dose: 400 mg Documented by: LIBORIO Hydrocortisone (Hydrocortisone 1 % Cream 28.35 Gm Tube) 1 appl TOPICAL BID PRN PRN Reason: skin irritation Hydroxyzine HCl (Hydroxyzine Hcl 50 Mg Tablet) 50 mg PO BEDTIME PRN PRN Reason: for insomnia Meropenem 500 mg/ Sodium (Chloride) 50 mls @ 100 mls/hr IV DAILY@1645 [facility] Last Infusion: 11/10/21 16:58 Dose: 0 mls/hr Documented by: KACI Lamotrigine (Lamotrigine 100 Mg Tablet) 150 mg PO BEDTIME [facility] Last Admin: 11/10/21 20:56 Dose: 150 mg Documented by: JEVON Levothyroxine Sodium (Levothyroxine Sodium 200 Mcg Tablet) 200 mcg PO DAILY@0600 [facility] Last Admin: 11/11/21 04:16 Dose: 200 mcg Documented by: JEVON Melatonin (Melatonin 3 Mg Tablet) 6 mg PO BEDTIME PRN PRN Reason: Insomnia Midodrine (Midodrine Hcl 5 Mg Tablet) 5 mg PO BID [facility] Last Admin: 11/11/21 10:48 Dose: 5 mg Documented by: LIBORIO Patient Own Medication ( Umeclidinium- Vilanterol [Anoro Ellipta] 62.5-25 Mcg /Actuation) 1 each INHALE RDAILY [facility] Last Admin: 11/11/21 10:50 Dose: 1 each Documented by: LIBORIO Ondansetron HCl (Ondansetron Hcl 4 Mg/2 Ml Vial) 4 mg IVPUSH Q8H PRN PRN Reason: Nausea and Vomiting Last Admin: 11/10/21 17:19 Dose: 4 mg Documented by: KACI Pharmacy Consult (Consult Rx Perform Med Rec) 1 each MISCELLANE ONCE PRN PRN Reason: Consult order Pharmacy Consult (Consult Rx Perform Med Rec) 1 each MISCELLANE ONCE PRN PRN Reason: Consult order Sevelamer Carbonate (Sevelamer Carbonate Tablet 800 Mg Tablet) 1,600 mg PO TIDWM [facility] Last Admin: 11/11/21 10:48 Dose: 1,600 mg Documented by: LIBORIO Sodium Chloride (0.9 % Sodium Chloride Flush 3 Ml Syringe) 3 ml [facility] Last Admin: 11/11/21 10:50 Dose: 3 ml Documented by: LIBORIO Sodium Chloride (0.9 % Sodium Chloride Flush 10 Ml Syringe) 5 ml [facility] Last Admin: 11/11/21 10:50 Dose: 5 ml Documented by: LIBORIO Tamoxifen Citrate (Tamoxifen Citrate 10 Mg Tablet) 20 mg PO DAILY@1400 [facility] Last Admin: 11/10/21 12:47 Dose: 20 mg Documented by: LUDWIN Labs CBC & Chem 7: 11/10/21 06:22 11/10/21 06:22 Microbiology Microbiology Results: Microbiology 11/06/21 09:14 Blood Culture - Final Blood - Venous No growth after 5 days. 11/06/21 09:14 Blood Culture - Final Blood - Venous No growth after 5 days. Assessment and Plan (1) Delirious: Status: Acute (2) Encephalopathy: Status: Acute (3) Urinary tract infection: Status: Acute Plan 76-year-old female with past medical history paroxysmal AFib, ESRD on dialysis, among other medical problems presents to the hospital with complaints of insomnia and increased confusion found to have encephalopathy and urinary tract infection # toxic metabolic encephalopathy likely multifactorial secondary to UTI, delirium, tawny attack? Continue IV antibiotics for infection Recurrent redirection To get psychiatry evaluation for possible tawny # ESBL E coli UTI Antibiotics changed to meropenem A PICC line in place, to finish antibiotics on November 20 Id input appreciated, total 2 weeks of antibiotics # ESRD, hyperkalemia Nephrology follow-up Dialysis TTS To give Lokelma today Follow BMP, to get corrected by dialysis # paroxysmal AFib continue apixaban # hypothyroidism Has high TSH Thyroxine increase it to 200 mg will need follow-up outpatient to 3 weeks to recheck TSH DVT ppx: eliquis Need of hospital stay, patient still disoriented and cannot manage out of the hospital with risk of decompensation. Will need to continue IV antibiotics and psychiatry evaluation for safe discharge plan. Quality Stroke Does the patient have a stroke diagnosis?: No VTE Prior VTE?: No VTE Risk Level:: Medical - moderate - high VTE Device Contraindication: Treatment Not Indicated VTE Drug Contraindication: N/A - Med Ordered
--- NOTE | 2021-11-11 13:53 | PM.PNNEP ---
Subjective Subjective Date of Service: 11/11/21 Principal diagnosis: Pt is confused Interval history: the patient was seen and evaluated Laying in bed, still disoriented and confused Has loose stools Physical Exam Vital Signs: Vital Signs: Last Vital Signs Temp 98.0 F 11/11/21 08:00 Pulse 95 11/11/21 08:00 Resp 20 11/11/21 08:00 BP 101/72 11/11/21 08:00 Pulse Ox 97 11/11/21 08:00 BMI result Body Mass Index 32.8 Constitutional : Alert, interactive, not in distress Neck : Normal inspection, Supple, central line in her neck Cardiovascular : RRR, S1 S2, no lower extremity edema Respiratory :? Fair bilateral air entry,? no crackles, wheezes or rhonchi Gastrointestinal:? soft, lax, Normal bowel sounds, Non tender Skin : Warm, Dry, PermCath in place Neurological : Alert &? disoriented, No focal deficit Psychiatric, hallucinating, pressure speak and flight of ideas Objective Data Labs CBC & Chem 7: 11/10/21 06:22 11/10/21 06:22 Microbiology Microbiology Results: Microbiology 11/06/21 09:14 Blood - Venous Blood Culture - Final No growth after 5 days. 11/06/21 09:14 Blood - Venous Blood Culture - Final No growth after 5 days. 11/06/21 00:00 Urine clean catch - Urine zarate top Urine Culture - Final Enterobacter aerogenes Procedures Date of Service Date of Service: 11/11/21 Assessment & Plan Assessment and plan (1) ESRD (end stage renal disease) on dialysis: Status: Acute Plan 76-year-old female with a past medical history of? hyperlipidemia, ESRD on hemodialysis, history of breast cancer, hypothyroidism, anxiety, depression, bipolar, history of pulmonary embolism, history of SBO, seizures, COPD presented to the hospital after hemodialysis session with a chief complaint of generalized weakness and cough.? Noted to have findings on the CT scan concerning for pneumonia.? Admitted to the hospital for further management. Episode of CP: resolved ESRD:HDper schedule Anemia: epo as noted GNB w recent ureteral stent: source of infection Low BPs: cont midrdine REC: Cont HD3x/wk; Abx as noted procrit ordered--xfued earlier this week? during HD HadHD yesterday d/w medical team Will follow with team Time Spent With Patient Time: Total time spent is greater than 50% in coordination of care (as documented) at patient's floor/unit and/or counseling patient: Progress Note: Quality Stroke Does the patient have a stroke diagnosis?: No
[2021-11-11] MEDS: Tamoxifen Citrate 10 MG TABLET 20 MG PO (14:43)
[2021-11-11 15:12] VITALS: BP 120/57; PULSE 78; RESP 20; TEMP 37.1; O2SAT 97
--- NOTE | 2021-11-11 16:27 | PM.PSYCN ---
History of Present Illness Date of Service: 11/11/21 Chief Complaint: uti, encephalopathy Reason for Consult: Medication Requesting physician: Matthew Adorno Discussed with referring provider: Yes Sources of Information: patient interviewed, chart reviewed and crisis/core team assessment reviewed HPI Narrative: Evette is a 76 y.o. Female who carries a dx of bipolar disorder. She has a past medical history of hyperlipidemia, ESRD on hemodialysis, breast cancer, hypothyroidism, pulmonary embolism on Eliquis, small bowel obstruction, seizures, and COPD. She was recently admitted to [facility] with CC of left hand pain and swelling due to inflammatory arthritis, given prednisone and discharged on 11/02. She was also admitted to the hospital with a chief complaint of pneumonia /Klebsiella bacteremia and was discharged on 10/27/2021 on oral antibiotics. On 11/07/21 pt was brought to [facility] by her due to increased confusion and insomnia. Per , pt has not slept since being discharged from the hospital, verbally more combative, not directable, and slightly confused. Per hospitalist intake, pt was very confused, delirious, and has visual hallucinations. Pt was found to have a UTI and TSH of 13. Pt was admitted to [facility] due to significant encephalopathy likely secondary to UTI as well as psychosis in the setting of recent hospitalization and prednisone treatment. She was started on IV antibiotics and synthroid increased to 200 mg. Psych consult placed due to pt presenting with hallucinations, flight of ideas, reporting having a baby in the psych unit.? I evaluated the pt this evening and upon interview she reports ?something is wrong, im not myself? and says ?i feel like im chained to this bed.? Pt denies having hallucinations. Mood is ?unstable? and says she is upset because ?they didnt explain what?s going on with me.? Pt reports feeling irritable, ?which is unlike me.? Says she wants to go home. Energy is ?good until somebody comes in the room and starts pushing me around,? has been resistant with interventions, per pt ?they are not being very careful with me. I just wanna be left alone for a while.? Pt reports good med adherence, ?Im very good with my meds.? Pt remained irritable during interview and did not want to participate, ?would it be okay if you leave me alone?? Per RN, pt at baseline is upbeat and pleasant, cooperative, amenable to interventions. She is not at baseline, as she is irritable, agitated, and confused. Per staff, pt naps in the day, some difficulty sleeping at night. Medical Evaluation Reviewed: Yes [facility] Medical History (Updated 11/13/21 @ 19:03 by Shanell Dooley NP) Abdominal pain Acute UTI Arrhythmia Arthritis AV fistula Bipolar 1 disorder Bipolar disorder Bladder cancer Bowel obstruction Breast cancer Bronchopneumonia C. difficile diarrhea Cancer Chronic nausea Chronic respiratory failure COPD (chronic obstructive pulmonary disease) COVID-19 vaccine administered Dialysis patient Diarrhea Dysphagia ESRD (end stage renal disease) History of 2019 novel coronavirus disease (COVID-19) Hx of hypotension Hx of radiation therapy Hydronephrosis Hyperkalemia Hypothyroidism Invasive ductal carcinoma of breast Lab test negative for COVID-19 virus Lab test positive for detection of COVID-19 virus Leukocytosis MSSA bacteremia Paroxysmal A-fib Poor appetite Positive FIT (fecal immunochemical test) Pulmonary emboli Renal failure SBO (small bowel obstruction) Seizure SIRS (systemic inflammatory response syndrome) Thyroid disease Ureteral cancer Vomiting Wears dentures Surgical History History of abdominal surgery History of appendectomy History of back surgery History of bladder surgery (~06/2020) History of cholecystectomy History of esophagogastroduodenoscopy (EGD) History of hand surgery History of lumpectomy of left breast History of lumpectomy of right breast History of tonsillectomy Hx of colonoscopy Hx of foot surgery Diagnostics Vital Signs (24Hr): Vital Signs - 24 hr 11/10/21 19:20 11/10/21 23:51 11/11/21 04:00 Temperature 98.0 F 97.6 F 97.8 F Pulse Rate 88 98 101 H Respiratory Rate 20 18 18 Blood Pressure 126/70 127/62 Pulse Oximetry 91 L 98 95 11/11/21 08:00 11/11/21 15:12 Temperature 98.0 F 98.7 F Pulse Rate 95 78 Respiratory Rate 20 20 Blood Pressure 101/72 120/57 L Pulse Oximetry 97 97 BMI result Body Mass Index 32.8 Labs Results: 11/10/21 06:22 11/12/21 06:22 Labs: Laboratory Results - last 48 hr 11/10/21 11/10/21 06:22 06:22 WBC 9.0 RBC 3.00 L Hgb 9.1 L Hct 29.2 L MCV 97.3 MCH 30.3 MCHC 31.2 RDW 15.6 Plt Count 282 MPV 9.5 Absolute Nucleated RBC 0.000 Nucleated RBC % (auto) 0.0 Sodium 137 Potassium 3.5 D Chloride 101 Carbon Dioxide 26 Anion Gap 14 BUN 24 H Creatinine 2.80 H Estim Creat Clear Calc 17.4 Estimated GFR 17 Random Glucose 79 Calcium 8.5 Imaging Radiology Impressions: ITS Impressions Chest X-Ray 11/06/21 08:01 IMPRESSION: Stable appearance of bilateral [id number] lobe airspace opacities and left central venous dialysis catheter. Chest X-Ray 11/08/21 04:50 IMPRESSION: 1. Right IJ central venous catheter tip terminates in the SVC. 2. Unchanged appearance of the bibasilar airspace opacities. Mental Status Exam Mental Status Exam Narrative: A&O except to situation. In hospital attire, appears older than stated age. Good eye contact, attentive. No Tics or Tremors. No abnormal involuntary movements. Irritable, did not want to engage in interview. Non-pressured speech, spontaneous with regular rate and rhythm, normal volume and prosody. No prolonged speech latency or dysarthria. Mood is ?irritable,? affect is congruent. Denies SI/SIB/HI upon inquiry. Denies A/VH or delusional thought content. Thoughts are distracted and confused. Pt with long hx of bipolar disorder, on clozapine. Insight/ Judgment limited. Medications Medications Current Medications Acetaminophen (Acetaminophen 325 Mg Tablet) 650 mg PO BID PRN PRN Reason: Pain (Scale Score 1-3) Last Admin: 11/11/21 10:49 Dose: 650 mg Documented by: Albuterol Sulfate (Albuterol Sulfate 90 Mcg 8 Gm Inhaler) 2 puff INHALE Q4H PRN PRN Reason: Wheezing Apixaban (Apixaban 2.5 Mg Tablet) 2.5 mg PO BID [facility] Last Admin: 11/11/21 10:51 Dose: 2.5 mg Documented by: Benzonatate (Benzonatate 100 Mg Capsule) 100 mg PO TID [facility] Last Admin: 11/11/21 14:43 Dose: 100 mg Documented by: Clonazepam (Clonazepam 1 Mg Tablet) 1 mg PO BEDTIME [facility] Last Admin: 11/10/21 20:57 Dose: 1 mg Documented by: Clozapine (Clozapine 100 Mg Tablet) 150 mg PO BEDTIME [facility] Last Admin: 11/10/21 20:57 Dose: 150 mg Documented by: Docusate Sodium (Docusate Sodium 100 Mg Capsule) 100 mg PO DAILY PRN PRN Reason: Constipation Dronedarone (Dronedarone Hcl 400 Mg Tablet) 400 mg PO BID [facility] Last Admin: 11/11/21 10:48 Dose: 400 mg Documented by: Hydrocortisone (Hydrocortisone 1 % Cream 28.35 Gm Tube) 1 appl TOPICAL BID PRN PRN Reason: skin irritation Hydroxyzine HCl (Hydroxyzine Hcl 50 Mg Tablet) 50 mg PO BEDTIME PRN PRN Reason: for insomnia Meropenem 500 mg/ Sodium (Chloride) 50 mls @ 100 mls/hr IV DAILY@1645 [facility] Last Infusion: 11/10/21 16:58 Dose: Infused Documented by: Lamotrigine (Lamotrigine 100 Mg Tablet) 150 mg PO BEDTIME [facility] Last Admin: 11/10/21 20:56 Dose: 150 mg Documented by: Levothyroxine Sodium (Levothyroxine Sodium 200 Mcg Tablet) 200 mcg PO DAILY@0600 [facility] Last Admin: 11/11/21 04:16 Dose: 200 mcg Documented by: Melatonin (Melatonin 3 Mg Tablet) 6 mg PO BEDTIME PRN PRN Reason: Insomnia Midodrine (Midodrine Hcl 5 Mg Tablet) 5 mg PO BID [facility] Last Admin: 11/11/21 10:48 Dose: 5 mg Documented by: Patient Own Medication ( Umeclidinium- Vilanterol [Anoro Ellipta] 62.5-25 Mcg /Actuation) 1 each INHALE RDAILY [facility] Last Admin: 11/11/21 10:50 Dose: 1 each Documented by: Ondansetron HCl (Ondansetron Hcl 4 Mg/2 Ml Vial) 4 mg IVPUSH Q8H PRN PRN Reason: Nausea and Vomiting Last Admin: 11/10/21 17:19 Dose: 4 mg Documented by: Pharmacy Consult (Consult Rx Perform Med Rec) 1 each MISCELLANE ONCE PRN PRN Reason: Consult order Pharmacy Consult (Consult Rx Perform Med Rec) 1 each MISCELLANE ONCE PRN PRN Reason: Consult order Sevelamer Carbonate (Sevelamer Carbonate Tablet 800 Mg Tablet) 1,600 mg PO TIDWM [facility] Last Admin: 11/11/21 14:45 Dose: 1,600 mg Documented by: Sodium Chloride (0.9 % Sodium Chloride Flush 3 Ml Syringe) 3 ml IVFLUSH [facility] Last Admin: 11/11/21 10:50 Dose: 3 ml Documented by: Sodium Chloride (0.9 % Sodium Chloride Flush 10 Ml Syringe) 5 ml IVFLUSH [facility] Last Admin: 11/11/21 10:50 Dose: 5 ml Documented by: Tamoxifen Citrate (Tamoxifen Citrate 10 Mg Tablet) 20 mg PO DAILY@1400 [facility] Last Admin: 11/11/21 14:43 Dose: 20 mg Documented by: Allergies Allergies Allergy/AdvReac Type Severity Reaction Status Date / Time adhesive tape Allergy Intermediate Blister Verified 09/27/21 13:53 aspirin Allergy Intermediate RASH Verified 09/27/21 13:53 benztropine Allergy Intermediate RASH Verified 09/27/21 13:53 NSAIDS (Non-Steroidal Allergy Intermediate RASH Verified 09/27/21 13:53 Anti-Inflamma ziprasidone Allergy Intermediate UNKNOWN Verified 09/27/21 13:53 doxycycline AdvReac Vomiting Verified 09/27/21 13:53 oxycodone AdvReac Anaphylaxis Verified 09/27/21 13:53 Assessment & Plan Assessment & Plan (1) Bipolar 1 disorder: Status: Acute Code(s): F31.9 - Bipolar disorder, unspecified Plan Prudence is a 76 y.o. Female who carries a dx of bipolar disorder. She has a past medical history of hyperlipidemia, ESRD on hemodialysis, breast cancer, hypothyroidism, pulmonary embolism on Eliquis, small bowel obstruction, seizures, and COPD. She has had multiple medical admissions in the past month and currently presented to altered mental status, encephalopathy in context of UTI, on IV antibiotics. Continued on dialysis. Pt at baseline is calm, pleasant, and cooperative, however on admission she presented with confusion, agitation, and poor sleep. Plan: During previous hospitalization, pt was maintained on 250 mg of clozapine, however she is now on 150 mg for unclear reasons. Consulted with pt's OP psychiatrist, Dr. Wilkes, who recommended pt?s clozapine dose be re-titrated up. Pt will have CBC monitored on outpatient basis. Will increase to 175 mg this evening and 200 mg tomorrow evening as tolerated. I have shared this with Dr. Adorno Thank you for this consultation. If you have any questions or concerns, please do not hesitate to contact psychiatry service. I spent minutes with the patient and/or on the patient floor today, greater than?50% of which was spent counseling/coordinating care.
[2021-11-11 19:24] VITALS: BP 125/67; PULSE 66; RESP 20; TEMP 36.7; O2SAT 97
[2021-11-11] MEDS: cloZAPine 100 MG, cloZAPine 75 MG 175 MG PO (20:36)
[2021-11-11] MEDS: lamoTRIgine 100 MG TABLET 150 MG PO (20:36)
[2021-11-11] MEDS: clonazePAM 1 MG TABLET PO (20:37)
[2021-11-11] MEDS: hydrOXYzine HCL 50 MG TABLET PO (23:17)
[2021-11-11 23:58] VITALS: BP 129/63; PULSE 74; RESP 18; TEMP 36.9; O2SAT 96
[2021-11-12] MEDS: Levothyroxine Sodium 200 MCG TABLET PO (05:14)
[2021-11-12 06:55] LABS: Anion Gap 13 (12-20); Blood Urea Nitrogen 33 mg/dL (9-16); Calcium 9.2 mg/dL (8.4-10.2); Carbon Dioxide 24 mmol/L (22-29); Chloride 101 mmol/L (96-108); Glucose Random 74 mg/dL (60-115); Potassium 5.4 mmol/L (3.3-5.1); Sodium 133 mmol/L (135-145)
[2021-11-12 07:11] LABS: Creatinine Clr Calc Pharmacy 8.6; Estimated Glomerular Filt Rate 7
[2021-11-12 07:55] VITALS: BP 120/59; PULSE 60; RESP 18; TEMP 36.4; O2SAT 99
[2021-11-12] MEDS: Benzonatate 100 MG CAPSULE PO ×3 (08:56→20:06)
[2021-11-12] MEDS: Dronedarone HCl 400 MG TABLET PO ×2 (08:56→20:04)
[2021-11-12] MEDS: Apixaban 2.5 MG TABLET PO ×2 (08:56→20:04)
[2021-11-12] MEDS: Sodium Zirconium Cyclosilicate 5 GM POWD.PACK PO (08:56)
[2021-11-12] MEDS: Midodrine HCl 5 MG TABLET PO ×2 (08:56→20:06)
[2021-11-12] MEDS: Sevelamer Carbonate Tablet 800 MG TABLET 1600 MG PO ×2 (08:56→14:43)
[2021-11-12] MEDS: Acetaminophen 325 MG TABLET 650 MG PO (08:57)
[2021-11-12] MEDS: 0.9 % Sodium Chloride Flush 10 ML SYRINGE 5 ML IVFLUSH ×3 (08:57→20:07)
[2021-11-12] MEDS: 0.9 % Sodium Chloride Flush 3 ML SYRINGE IVFLUSH ×3 (08:57→20:07)
--- NOTE | 2021-11-12 11:39 | P.PNNP_ITS ---
Subjective Subjective Date of Service: 11/12/21 Principal diagnosis: Pt is confused Interval history: Seen and examined, events noted Physical Exam Vital Signs: Vital Signs: Last Vital Signs Temp 97.6 F 11/12/21 07:55 Pulse 60 11/12/21 07:55 Resp 18 11/12/21 07:55 BP 120/59 L 11/12/21 07:55 Pulse Ox 99 11/12/21 07:55 BMI result Body Mass Index 32.8 Const: Other: Constitutional : Alert, interactive, not in distress Neck : Normal inspection, Supple, central line in her neck Cardiovascular : RRR, S1 S2, no lower extremity edema Respiratory : Fair bilateral air entry, no crackles, wheezes or rhonchi Gastrointestinal: soft, lax, Normal bowel sounds, Non tender Skin : Warm, Dry, PermCath in place Neurological : Alert & disoriented, No focal deficit Psychiatric, hallucinating, pressure speak and flight of ideas General: cooperative and no acute distress Orientation/consciousness: oriented to person and oriented to place Limitations: no limitations HEENT: Head: Yes normal to inspection, Yes normocephalic and Yes atraumatic Ears: external ears normal General nose exam: Normal external nose present Face and sinus: Yes normal facial exam Mouth: Normal oral and palatal mucosa present Throat: Yes posterior oropharynx normal Eyes: General: appearance normal, both eyes and all related structures P upils: Equal, round and reactive pupils present Neck: Neck: Yes normal visual inspection, Yes no lymphadenopathy, Yes trachea midline and Yes supple Chest: Chest palpation & inspection: normal inspection of the chest and normal palpation of entire chest wall Resp: Effort & Inspection: normal respiratory effort and able to speak in complete sentences Auscultation: clear to auscultation bilaterally Cardio: Rate: regular rate Rhythm: regular rhythm Heart sounds: S1 normal heart sound present, S2 normal heart sound present and Murmur heart sound present (2/6 ROSE) systolic III/ and at the right sternal border GI: Inspection: Yes normal to inspection Palpation (GI): Soft to palpation, nontender and no guarding Auscultation: normal bowel sounds : General: Yes no CVA tenderness Back/Spine/Pelvis: Back: no CVA tenderness Skin: General skin exam: no rashes or lesions noted Neuro: Other: Oriented to self but not place or time, confused General: oriented to person and oriented to place Cranial nerves: Yes CN's II-XII intact bilaterally and Yes Equal, round and reactive pupils present Cognition (Neuro): normal cognition Motor exam (neuro): Other motor observations present (Upper extremities normal, lower extremity weakness which is chronic) Extrem: Other: moves all extremities General: Yes normal to inspection and Yes no pedal edema Psych: Appearance: grossly normal Speech and movement: Normal speech and movement present Affect: Animated affect present Attitude: cooperative Thought process: Normal thought process present Thought content: Normal thought content present Objective Data Labs CBC & Chem 7: 11/10/21 06:22 11/12/21 06:22 Labs: Laboratory Results - last 24 hr 11/12/21 06:22 Sodium 133 L Potassium 5.4 H D Chloride 101 Carbon Dioxide 24 Anion Gap 13 BUN 33 H Creatinine 5.69 H* Estim Creat Clear Calc 8.6 Estimated GFR 7 Random Glucose 74 Calcium 9.2 D Microbiology Microbiology Results: Microbiology 11/06/21 09:14 Blood - Venous Blood Culture - Final No growth after 5 days. 11/06/21 09:14 Blood - Venous Blood Culture - Final No growth after 5 days. 11/06/21 00:00 Urine clean catch - Urine zarate top Urine Culture - Final Enterobacter aerogenes Procedures Date of Service Date of Service: 11/12/21 Assessment & Plan Assessment and plan (1) ESRD (end stage renal disease) on dialysis: Status: Acute Plan 1. ESRD: usu mwf 2. AMS: ques bsl 3. Anemia REC: HD today get back on usu mwf; d/c planning Time Spent With Patient Time: Total time spent is greater than 50% in coordination of care (as documented) at patient's floor/unit and/or counseling patient: Progress Note: Quality Stroke Does the patient have a stroke diagnosis?: No
--- NOTE | 2021-11-12 12:27 | P.PNIM_ITS ---
Subjective Subjective Date of Service: 11/12/21 Interval History: The patient was seen and evaluated this morning Laying in bed, looks more oriented and interactive Plan for dialysis today No reported other overnight events. Systemic review: No fever, chills or weakness No chest pain, palpitation No shortness of breath or coughing No abdominal pain, nausea or vomiting No urinary symptoms No any rash or wounds Physical Exam Vital Signs: Vital Signs: Last Vital Signs Temp 97.6 F 11/12/21 07:55 Pulse 60 11/12/21 07:55 Resp 18 11/12/21 07:55 BP 120/59 L 11/12/21 07:55 Pulse Ox 99 11/12/21 07:55 BMI result Body Mass Index 32.8 Const: Other: Constitutional : Alert, interactive, not in distress Neck : Normal inspection, Supple, central line in her neck Cardiovascular : RRR, S1 S2, no lower extremity edema Respiratory : Fair bilateral air entry, no crackles, wheezes or rhonchi Gastrointestinal: soft, lax, Normal bowel sounds, Non tender Skin : Warm, Dry, PermCath in place, PICC line in place Neurological : Alert & disoriented, No focal deficit Psychiatric, hallucinating, pressure speak and flight of ideas Objective Data Active Medications Acetaminophen (Acetaminophen 325 Mg Tablet) 650 mg PO BID PRN PRN Reason: Pain (Scale Score 1-3) Last Admin: 11/12/21 08:57 Dose: 650 mg Documented by: MADAN Albuterol Sulfate (Albuterol Sulfate 90 Mcg 8 Gm Inhaler) 2 puff INHALE Q4H PRN PRN Reason: Wheezing Apixaban (Apixaban 2.5 Mg Tablet) 2.5 mg PO BID [facility] Last Admin: 11/12/21 08:56 Dose: 2.5 mg Documented by: MADAN Benzonatate (Benzonatate 100 Mg Capsule) 100 mg PO TID [facility] Last Admin: 11/12/21 08:56 Dose: 100 mg Documented by: MADAN Clonazepam (Clonazepam 1 Mg Tablet) 1 mg PO BEDTIME [facility] Last Admin: 11/11/21 20:37 Dose: 1 mg Documented by: KARINA Clozapine 100 mg/ Clozapine 75 (mg) 175 mg PO BEDTIME [facility] Last Admin: 11/11/21 20:36 Dose: 175 mg Documented by: KARINA Docusate Sodium (Docusate Sodium 100 Mg Capsule) 100 mg PO DAILY PRN PRN Reason: Constipation Dronedarone (Dronedarone Hcl 400 Mg Tablet) 400 mg PO BID [facility] Last Admin: 11/12/21 08:56 Dose: 400 mg Documented by: MADAN Hydrocortisone (Hydrocortisone 1 % Cream 28.35 Gm Tube) 1 appl TOPICAL BID PRN PRN Reason: skin irritation Hydroxyzine HCl (Hydroxyzine Hcl 50 Mg Tablet) 50 mg PO BEDTIME PRN PRN Reason: for insomnia Last Admin: 11/11/21 23:17 Dose: 50 mg Documented by: KAIRNA Meropenem 500 mg/ Sodium (Chloride) 50 mls @ 100 mls/hr IV DAILY@1645 [facility] Last Infusion: 11/11/21 18:23 Dose: 0 mls/hr Documented by: LIBORIO Lamotrigine (Lamotrigine 100 Mg Tablet) 150 mg PO BEDTIME [facility] Last Admin: 11/11/21 20:36 Dose: 150 mg Documented by: KARINA Levothyroxine Sodium (Levothyroxine Sodium 200 Mcg Tablet) 200 mcg PO DAILY@0600 [facility] Last Admin: 11/12/21 05:14 Dose: 200 mcg Documented by: KARINA Melatonin (Melatonin 3 Mg Tablet) 6 mg PO BEDTIME PRN PRN Reason: Insomnia Midodrine (Midodrine Hcl 5 Mg Tablet) 5 mg PO BID [facility] Last Admin: 11/12/21 08:56 Dose: 5 mg Documented by: MADAN Patient Own Medication ( Umeclidinium- Vilanterol [Anoro Ellipta] 62.5-25 Mcg /Actuation) 1 each INHALE RDAILY [facility] Last Admin: 11/11/21 10:50 Dose: 1 each Documented by: LIBORIO Ondansetron HCl (Ondansetron Hcl 4 Mg/2 Ml Vial) 4 mg IVPUSH Q8H PRN PRN Reason: Nausea and Vomiting Last Admin: 11/10/21 17:19 Dose: 4 mg Documented by: KACI Pharmacy Consult (Consult Rx Perform Med Rec) 1 each MISCELLANE ONCE PRN PRN Reason: Consult order Pharmacy Consult (Consult Rx Perform Med Rec) 1 each MISCELLANE ONCE PRN PRN Reason: Consult order Sevelamer Carbonate (Sevelamer Carbonate Tablet 800 Mg Tablet) 1,600 mg PO TIDWM [facility] Last Admin: 11/12/21 08:56 Dose: 1,600 mg Documented by: MADAN Sodium Chloride (0.9 % Sodium Chloride Flush 3 Ml Syringe) 3 ml IVFLUSH [facility] Last Admin: 11/12/21 08:57 Dose: 3 ml Documented by: MADAN Sodium Chloride (0.9 % Sodium Chloride Flush 10 Ml Syringe) 5 ml IVFLUSH [facility] Last Admin: 11/12/21 08:57 Dose: 5 ml Documented by: MADAN Tamoxifen Citrate (Tamoxifen Citrate 10 Mg Tablet) 20 mg PO DAILY@1400 [facility] Last Admin: 11/11/21 14:43 Dose: 20 mg Documented by: LIBORIO Labs CBC & Chem 7: 11/10/21 06:22 11/12/21 06:22 Labs: Laboratory Results - last 24 hr 11/12/21 06:22 Anion Gap 13 Estim Creat Clear Calc 8.6 Estimated GFR 7 Random Glucose 74 Calcium 9.2 D Microbiology Microbiology Results: Microbiology 11/06/21 09:14 Blood Culture - Final Blood - Venous No growth after 5 days. 11/06/21 09:14 Blood Culture - Final Blood - Venous No growth after 5 days. Assessment and Plan (1) Delirious: Status: Acute (2) ESRD (end stage renal disease) on dialysis: Status: Acute (3) Infection due to Enterobacter aerogenes: Status: Acute Plan 76-year-old female with past medical history paroxysmal AFib, ESRD on dialysis, among other medical problems presents to the hospital with complaints of insomnia and increased confusion found to have encephalopathy and urinary tract infection # toxic metabolic encephalopathy likely multifactorial secondary to UTI, delirium, tawny attack? improving Continue IV meropenem for infection, to give a dose of ertapenem the day before discharge Recurrent redirection Pending psychiatry evaluation for possible tawny # ESBL E coli UTI Antibiotics changed to meropenem A PICC line in place, to finish antibiotics on November 20 Id input appreciated, total 2 weeks of antibiotics # ESRD, hyperkalemia Nephrology follow-up Dialysis TTS To give Lokelma today Follow BMP, to get corrected by dialysis # paroxysmal AFib continue apixaban # hypothyroidism Has high TSH Thyroxine increase it to 200 mg will need follow-up outpatient to 3 weeks to recheck TSH DVT ppx: eliquis Need of hospital stay, patient still disoriented and cannot manage out of the hospital with risk of decompensation. Will need to continue IV antibiotics and psychiatry evaluation for safe discharge plan. Quality Stroke Does the patient have a stroke diagnosis?: No VTE Prior VTE?: No VTE Risk Level:: Medical - moderate - high VTE Device Contraindication: Treatment Not Indicated VTE Drug Contraindication: N/A - Med Ordered
--- NOTE | 2021-11-12 14:27 | MHC.CM.PN ---
per rounds pt to have a psyhch consult and will will be seen by nephrology..pt will go home on iv antibiotics
[2021-11-12 14:32] VITALS: BP 130/57; PULSE 69; RESP 19; TEMP 36.4; O2SAT 96
[2021-11-12] MEDS: Tamoxifen Citrate 10 MG TABLET 20 MG PO (14:44)
[2021-11-12 16:00] VITALS: BP 111/56; PULSE 98; RESP 17; TEMP 36.3; O2SAT 97
--- NOTE | 2021-11-12 18:56 | PC.NURSE ---
1500 Increased confusion noted after dialysis.Marlen meal. Very pleasant and joking with staff.
[2021-11-12 19:22] VITALS: BP 93/56; RESP 17; TEMP 36.6; O2SAT 96
[2021-11-12] MEDS: lamoTRIgine 100 MG TABLET 150 MG PO (20:04)
[2021-11-12] MEDS: clonazePAM 1 MG TABLET PO (20:05)
[2021-11-12] MEDS: cloZAPine 100 MG, cloZAPine 75 MG 175 MG PO (20:14)
[2021-11-12 23:39] VITALS: BP 136/72; PULSE 76; RESP 20; TEMP 37; O2SAT 97
[2021-11-13 04:00] VITALS: BP 111/53; PULSE 75; RESP 20; TEMP 37; O2SAT 96
[2021-11-13] MEDS: Levothyroxine Sodium 200 MCG TABLET PO (05:06)
[2021-11-13 07:59] VITALS: BP 109/59; PULSE 83; RESP 18; TEMP 36.7; O2SAT 100
[2021-11-13 08:25] LABS: Neut%MD 65.1 %; WBCANC 9.2 X10*3/uL
[2021-11-13] MEDS: Sevelamer Carbonate Tablet 800 MG TABLET 1600 MG PO ×2 (09:31→12:19)
[2021-11-13] MEDS: Benzonatate 100 MG CAPSULE PO ×2 (09:33→15:33)
[2021-11-13] MEDS: Dronedarone HCl 400 MG TABLET PO (09:33)
[2021-11-13] MEDS: Apixaban 2.5 MG TABLET PO (09:33)
[2021-11-13] MEDS: Midodrine HCl 5 MG TABLET PO (09:33)
[2021-11-13] MEDS: 0.9 % Sodium Chloride Flush 10 ML SYRINGE 5 ML IVFLUSH (09:38)
[2021-11-13] MEDS: 0.9 % Sodium Chloride Flush 3 ML SYRINGE IVFLUSH (09:38)
[2021-11-13 11:22] VITALS: BP 118/58; PULSE 75; RESP 20; TEMP 36.9; O2SAT 98
[2021-11-13] MEDS: Ertapenem Sodium 0.5 GM in 0.9 % Sodium Chloride 50 ML IV (11:54)
--- NOTE | 2021-11-13 12:30 | PM.DS ---
DS: Providers Provider Date of Service: 11/13/21 Date of admission: 11/08/21 04:05 Primary care physician: Gabriel Acosta MD Consults: 11/06/21 11:00 Consult to Care Team Stat Comment: Reason for consultation: believes patient is having a manic episode, not sleeping for 48 hr 11/06/21 11:03 BHN [Consult to Crisis] Stat Reason for consultation: believes patient is manic, no sleep times 48 hours Has provider been notified: No 11/07/21 23:12 Consult to Nephrology Routine Consulting Provider: [facility] Reason for consultation: dialysis Has provider been notified: No 11/08/21 13:47 Consult to Infectious Diseases Routine Consulting Provider: Angelina Salamanca Reason for consultation: UTI w Enterobacter 11/10/21 09:37 Consult to Psychiatry Routine Consulting Provider: [facility] Reason for consultation: Delerium, tawny? for your kind eval DS: Diagnosis Discharge Diagnosis (1) Delirious: Status: Acute (2) ESRD (end stage renal disease) on dialysis: Status: Acute (3) Infection due to Enterobacter aerogenes: Status: Acute (4) Encephalopathy: Status: Acute DS: Summary Hospital Course Hospital Course: Admission note HPI This is a 76-year-old female with past medical history of hyperlipidemia, ESRD on dialysis, paroxysmal AFib, breast cancer, hypothyroidism, anxiety and depression, bipolar disorder, history of pulmonary embolism on Eliquis, SBO, seizures, and COPD presents to the hospital brought in by her for increased confusion and insomnia.? Patient was recently discharged from the hospital on 11/02 after being managed for inflammatory arthritis, patient was discharged on prednisone and sent home.? Patient for reports that she has not slept since being discharged from the hospital, she is verbally more combative, not directable, slightly confused, and he was very concerned about her, he called her psychiatrist and her psychiatrist as him to bring her to the hospital Patient herself is very confused, she is delirious, has visual hallucinations, she reports different stories and unable to give much history or answer questions appropriately. ? Unable to get? much review of system from patient On arrival to the ED patient hemodynamically stable with no significant abnormal vitals Labs are significant for WBC count of 11, hemoglobin of 9.9, hematocrit 31.9, within her baseline, creatinine of 4.52, UA is positive for leukocyte Estrace as well as WBC Patient also found to have TSH of 13 Given significant encephalopathy likely secondary to UTI as well as psychosis in the setting of recent hospitalization and prednisone treatment I anticipate a medically necessary to night admission for management and monitoring.? This cannot be done outpatient as patient will do poorly Hospital course The patient was admitted to the hospital for evaluation and treatment of toxic metabolic encephalopathy which believed to be likely multifactorial secondary to UTI, delirium, and questionable tawny attack. She was treated with IV antibiotics as her urine culture grew resistant Enterobacter treated with meropenem as id evaluated the patient and recommended total of 2 weeks of IV antibiotics. A PICC line was placed and the patient will be discharged home to finish 1 more week of ertapenem. To finish antibiotics by November 20. Her mentation improved back to baseline as she was evaluated by psychiatry team or increased her clozapine dosage. Psychiatry to contact her outpatient psychiatry for a planned follow-up and medication adjustment as needed as she is not in tawny attack. Followed by Nephrology for dialysis scheduled MWF. Noticed to have elevated TSH of 13 with normal T4 which is subclinical hypothyroidism. Advised to repeat TSH as outpatient in 1 month or so. Plan Continue ertapenem for 1 more week Continue dialysis MWF To follow-up with your psychiatrist as outpatient. You will need to repeat your thyroid hormone test in 3 weeks to address if any increase in thyroxine as needed by PCP. Time Spent with Patient Time attestation: Total time spent providing and/or coordinating discharge services: Discharge coordination time: Greater than 30 minutes Quality: Stroke Does the patient have a stroke diagnosis?: No Physical Exam Vital Signs: Vital Signs: Last Vital Signs Temp 98.4 F 11/13/21 11:22 Pulse 75 11/13/21 11:22 Resp 20 11/13/21 11:22 BP 118/58 L 11/13/21 11:22 Pulse Ox 98 11/13/21 11:22 BMI result Body Mass Index 32.8 Const: Other: Constitutional : Alert, interactive, not in distress Neck : Normal inspection, Supple, central line in her neck Cardiovascular : RRR, S1 S2, no lower extremity edema Respiratory : Fair bilateral air entry, no crackles, wheezes or rhonchi Gastrointestinal: soft, lax, Normal bowel sounds, Non tender Skin : Warm, Dry, PermCath in place, PICC line in place Neurological : Alert & oriented to self and place, No focal deficit DS: Data Data Completed and Pending Completed studies during hospitalization [Text1]: Procedures Destruction of Bladder, Via Natural or Artificial Opening Endoscopic (03/21/21) Dilation of Bilateral Ureters with Intraluminal Device, Via Natural or Artificial Opening Endoscopic (03/21/21) Extirpation of Matter from Right Ureter, Via Natural or Artificial Opening Endoscopic (03/21/21) Fluoroscopy of Kidneys, Ureters and Bladder (03/21/21) Performance of Urinary Filtration, Intermittent, Less than 6 Hours Per Day (10/20/21) Transfusion of Nonautologous Red Blood Cells into Peripheral Vein, Percutaneous Approach (10/20/21) Labs on day of discharge: Laboratory Results - last 24 hr 11/13/21 08:04 Absolute Neuts (auto) 6.0 Discharge Plan Discharge Patient Disposition: Home Health Service Discharge Diagnosis: UTI due to Enterobacter infection Encephalopathy Referrals: [facility] [Other] - 1 Week [facility] [Outside] - 1 Week Gabriel Acosta MD [Primary Care Provider] - 1 Week Discharge Medications: New ertapenem 1 gram recon soln 0.5 g IM Q24H Qty: 7 0RF Continued hydroxyzine pamoate 50 mg capsule 50 mg PO BEDTIME PRN (Reason: for insomnia) Qty: 90 1RF lamotrigine 150 mg tablet 150 mg PO BEDTIME 0RF clonazepam 1 mg tablet 1 mg PO BEDTIME 0RF acetaminophen 325 mg Tablet 650 mg PO BID PRN (Reason: Pain (Scale Score 1-3)) 0RF sevelamer carbonate 800 mg tablet 1,600 mg PO TIDWM 0RF tamoxifen 20 mg tablet 20 mg PO DAILY@1400 0RF Multaq 400 mg tablet 1 tab PO BID 0RF midodrine 5 mg Tablet 5 mg PO BID Qty: 60 0RF benzonatate 100 mg Capsule 100 mg PO TID Qty: 20 0RF clozapine 100 mg tablet 150 mg PO BEDTIME 0RF melatonin 3 mg Tablet 6 mg PO DAILY PRN (Reason: Insomnia) 0RF levothyroxine 150 mcg tablet 1 tab PO DAILY 0RF albuterol sulfate 90 mcg/actuation Hfa Aerosol Inhaler 2 puff INHALATION Q4-6H PRN (Reason: Wheezing) 0RF Anoro Ellipta 62.5-25 mcg/actuation blister with device 1 puff inhalation DAILY 0RF hydrocortisone 2.5 % cream 1 appl topical BID PRN (Reason: skin irritation) Qty: 20 0RF Eliquis 2.5 mg tablet 2.5 mg PO BID 0RF Discontinued prednisone 20 mg Tablet 40 mg PO DAILY Qty: 15 0RF Rx Instructions: 40mg for 5 days then 20mg daily for 5 days Discharge Orders: Discharge Order (Routine); Ordered 11/13/21 Ordered By: Matthew Adorno Diet: advance to usual diet Activity on Discharge: As tolerated Stand Alone Forms: Patient Portal Discharge page Care Plan Goals: Read below Health Concerns: Read below Plan of Treatment: Read below Assessment: You were admitted to the hospital for evaluation of altered mentation. Found to have urine infection secondary to resistant bacteria called Enterobacter that was treated with IV antibiotics based on infectious disease specialist recommendations. You were evaluated by psychiatry team who recommended a follow-up with your primary psychiatrist to address the rest of your home medications. Continue ertapenem for 1 more week Continue dialysis MWF To follow-up with your psychiatrist as outpatient. You will need to repeat your thyroid hormone test in 3 weeks to address if any increase in thyroxine as needed by PCP.
[2021-11-13 14:59] VITALS: BP 124/57; PULSE 76; RESP 17; TEMP 36.4; O2SAT 98
--- NOTE | 2021-11-13 15:02 | MHC.CM.PN ---
notified of dc and will be in to take pt home pt to get iv antibiotic dose here today tomorrow will beging the home infusion
[2021-11-13] MEDS: Tamoxifen Citrate 10 MG TABLET 20 MG PO (15:33)
== END 2021-11-13 16:06 | disposition home health service (06) | DRG 689 ==
LOC: HO.ED 11-07 14:53 → HO.EDOVER 11-08 04:16 → HO.IMC 11-08 08:38
PROVIDERS: Clinical Nurse Specialist Psychiatric/Mental Health, Adult; Admitting Provider Internal Medicine; Emergency Provider Emergency Medicine Emergency Medical Services; PCP Internal Medicine; Visit Provider Student in an Organized Health Care Education/Training Program
DX: N39.0 Urinary tract infection, site not specified (principal); G92.8 Other toxic encephalopathy; N18.6 End stage renal disease; F05 Delirium due to known physiological condition; F31.2 Bipolar disorder, current episode manic severe with psychotic features; C50.919 Malignant neoplasm of unspecified site of unspecified female breast; I48.0 Paroxysmal atrial fibrillation; E87.5 Hyperkalemia; D63.1 Anemia in chronic kidney disease; E03.9 Hypothyroidism, unspecified; Z20.822 Contact with and (suspected) exposure to COVID-19; Z87.891 Personal history of nicotine dependence; Z88.5 Allergy status to narcotic agent; Z88.6 Allergy status to analgesic agent; Z79.01 Long term (current) use of anticoagulants; Z79.810 Long term (current) use of selective estrogen receptor modulators (SERMs); Z79.899 Other long term (current) drug therapy
CPT/HCPCS: 36410; 36415; 71045; 80048; 80053; 80307; 81001; 82077; 83605; 83690; 84439; 84443; 85025; 85027; 85048; 85610; 85730; 87040; 87086; 87088; 87186; 87635; 90999; 93005; 99284; 99285; J1335; J2185; J2405

== ENCOUNTER 2021-11-13 20:53 | Inpatient (IN) | payer MEDICARE, BC, SELFPAY ==
[2021-11-13 21:04] VITALS: BP 125/105; PULSE 104; RESP 18; TEMP 36.9; O2SAT 98; BMI 21.2
[2021-11-13 22:26] VITALS: BP 135/103; PULSE 99; RESP 20; O2SAT 99
--- NOTE | 2021-11-13 22:37 | ED.GENADULT ---
HPI - General Adult General Chief complaint: Psychiatric Symptoms Stated complaint: CRISIS Time Seen by Provider: 11/13/21 22:26 Source: patient and family () Mode of arrival: ambulatory Limitations: no limitations History of Present Illness HPI narrative: 76 years old female with past medical history of hyperlipidemia, end-stage renal disease on dialysis, paroxysmal AFib, breast cancer, hypothyroidism, anxiety and depression, patient also carries diagnoses of bipolar disorder, had a recent hospitalization for interior Bactrim bacteremia, patient also had a recent use of prednisone, patient was discharged from the hospital today, brought back by her for increases combativeness, patient is not directable, slightly confused, patient think she is and the baby is coming out, in the emergency department patient acting delirious. Related Data Home Medications Medication Instructions Recorded Confirmed clonazepam 1 mg tablet 1 mg PO BEDTIME 05/21/20 11/13/21 lamotrigine 150 mg tablet 150 mg PO BEDTIME 05/21/20 11/13/21 acetaminophen 325 mg tablet 650 mg PO BID PRN 05/22/20 11/13/21 tamoxifen 20 mg tablet 20 mg PO DAILY@1400 07/15/21 11/13/21 apixaban 2.5 mg tablet (Eliquis) 2.5 mg PO BID 09/03/21 11/13/21 sevelamer carbonate 800 mg tablet 1,600 mg PO TIDWM tab 09/27/21 11/13/21 dronedarone 400 mg tablet (Multaq) 1 tab PO BID 10/20/21 11/13/21 albuterol sulfate 90 mcg/actuation 2 puff INHALATION Q4-6H PRN 11/01/21 11/13/21 aerosol inhaler clozapine 100 mg tablet 150 mg PO BEDTIME 11/01/21 11/13/21 levothyroxine 150 mcg tablet 1 tab PO DAILY 11/01/21 11/13/21 melatonin 3 mg tablet 6 mg PO DAILY PRN 11/01/21 11/13/21 umeclidinium 62.5 mcg-vilanterol 1 puff INHALATION DAILY 11/01/21 11/13/21 25 mcg/actuation powdr for inhalation (Anoro Ellipta) Previous Rx's Medication Instructions Recorded hydroxyzine pamoate 50 mg capsule 50 mg PO BEDTIME PRN #90 cap 09/09/21 hydrocortisone 2.5 % topical cream 1 appl TOPICAL BID PRN #20 g 09/27/21 benzonatate 100 mg capsule 100 mg PO TID #20 cap 10/27/21 midodrine 5 mg tablet 5 mg PO BID #60 tab 10/27/21 ertapenem 1 gram solution for 0.5 g IM Q24H #7 ea 11/13/21 injection Allergies Allergy/AdvReac Type Severity Reaction Status Date / Time adhesive tape Allergy Intermediate Blister Verified 11/13/21 21:04 aspirin Allergy Intermediate RASH Verified 11/13/21 21:04 benztropine Allergy Intermediate RASH Verified 11/13/21 21:04 NSAIDS (Non-Steroidal Allergy Intermediate RASH Verified 11/13/21 21:04 Anti-Inflamma ziprasidone Allergy Intermediate UNKNOWN Verified 11/13/21 21:04 doxycycline AdvReac Vomiting Verified 11/13/21 21:04 oxycodone AdvReac Anaphylaxis Verified 11/13/21 21:04 Review of Systems Review of Systems: Yes Unobtainable due to mental condition PMFSH Past Medical History Medical History Abdominal pain Acute UTI Arrhythmia Arthritis AV fistula Bipolar 1 disorder Bipolar disorder Bladder cancer Bowel obstruction Breast cancer Bronchopneumonia C. difficile diarrhea Cancer Chronic nausea Chronic respiratory failure COPD (chronic obstructive pulmonary disease) COVID-19 vaccine administered Dialysis patient Diarrhea Dysphagia ESRD (end stage renal disease) History of 2018 novel coronavirus disease (COVID-19) Hx of hypotension Hx of radiation therapy Hydronephrosis Hyperkalemia Hypothyroidism Invasive ductal carcinoma of breast Lab test negative for COVID-19 virus Lab test positive for detection of COVID-19 virus Leukocytosis MSSA bacteremia Paroxysmal A-fib Poor appetite Positive FIT (fecal immunochemical test) Pulmonary emboli Renal failure SBO (small bowel obstruction) Seizure SIRS (systemic inflammatory response syndrome) Thyroid disease Ureteral cancer Vomiting Wears dentures Surgical History History of abdominal surgery History of appendectomy History of back surgery History of bladder surgery (~06/2020) History of cholecystectomy History of esophagogastroduodenoscopy (EGD) History of hand surgery History of lumpectomy of left breast History of lumpectomy of right breast History of tonsillectomy Hx of colonoscopy Hx of foot surgery Family History Family History Father Dementia Mother Bipolar 1 disorder Brother Heart attack Other Mental health disorder Social History Social History (Updated 11/08/21 @ 17:44 by Khurram Gould RN) Household Members: Significant Other Housing: House Are you a primary hemodialysis patient care specialist to a significant other at home: No Do you presently have visiting nurse or other home services: Yes Alcohol intake: never Patient Tobacco Use Status: Former Tobacco user Quit Date: 4 years ago Tobacco use type: Cigarette Cigarette Packs Per Day: 1.5 Cigarettes Per Day: 30.0 Years Smoked: 50 e-Cigarette/Vaping Use: Never Used Second Hand Smoke Exposure: No Use of substances other than those prescribed or required for medical reasons: Unable to respond Advance Directives: Yes Advance Directives on File: Yes Advance Directives Date on File: 01/24/21 service: No Current occupational status: disabled Cognitive needs: Yes (Walker/Wheelchair) Hearing needs: No Vision needs: Yes (readng glasses) Physical Exam ED Vital Signs: Vital Signs - 24 hr 11/13/21 21:04 11/13/21 22:26 Temperature 98.5 F Pulse Rate 104 H 99 Respiratory Rate 18 20 Blood Pressure 125/105 H 135/103 H Pulse Oximetry 98 99 BMI result Body Mass Index 21.2 Vital signs have been reviewed as appeared to be correct. Blood pressure normal. Heart rate normal. Respiration rate normal. Temperature normal. Oxygen saturation normal. Appearance: Alert. Oriented X3. No acute distress. Head: Normal external exam. Normocephalic. Atraumatic. No Arriaga signs noted. No raccoon eyes noted Eyes: PERRLA. EOMI. Conjunctiva and sclera normal. Eyelids normal. ENT: TM's Normal. Pharynx normal. Uvula midline. Moist mucous membranes. No trismus noted. No drooling noted. No muffled voice noted. Neck: Normal inspection. Neck supple. FROM. No adenopathy. Thyroid Normal. No meningeal signs. No neck mass noted. CVS: Normal heart rate and rhythm. Heart sound normal. No murmurs noted. Pulses normal throughout. Respiratory: No respiratory distress. Painless inspiration. Breath sounds normal. No wheezes/rales/rhonchi noted. Chest nontender. No accessory muscle usage noted or decreased air movement noted. Abdomen: Soft and nontender. Bowel sounds normal in all 4 quadrants. No distention noted. No organomegaly noted. No visible injury noted. Back: No CVA tenderness. Full range of motion noted. Skin: Skin warm and dry. Normal skin color. Normal skin turgor. No rashes/lesions/lacerations noted. Extremities: No lower extremity edema. Extremities exhibit normal range of motion. Extremities nontender. Neuro: Oriented X 3. Cranial nerve exam: II-XII are grossly intact No motor deficit. No sensory deficit. Reflexes normal. Patient Orientation: Person, Place, Time and Situation Level of Consciousness: Awake, inappropriate and Alert Patient Behavior: Verbally abusive to her and the medical staff, combative sometimes Mood Description: Constricted, Blunted and Apprehensive Affect Description: Constricted, Blunted and Apprehensive Patient Cognition Impaired: No Ability to Follow Directions: No Speech Pattern: Not interruptible Hallucinations: Not present Delusions: Think she is and the baby S, and Thought Process: Not intact Thought Content: denies Suicidal Ideation and denies Homicidal Ideation. Judgement: poor Judgement and Insight: poor Course Course Course Narrative: Assessment and plan. 76-year-old female with history of bipolar/psychosis return to the hospital after becoming combative and belligerent, patient also is delirious likely secondary to medical condition. Patient still receiving antibiotics through her PICC line, patient will be admitted medically. Discharge Plan Discharge Clinical Impression: Delirium due to another medical condition Patient Disposition: Admitted As Inpatient Prescriptions: No Action hydroxyzine pamoate 50 mg capsule 50 mg PO BEDTIME PRN (Reason: for insomnia) Qty: 90 1RF lamotrigine 150 mg tablet 150 mg PO BEDTIME 0RF clonazepam 1 mg tablet 1 mg PO BEDTIME 0RF acetaminophen 325 mg Tablet 650 mg PO BID PRN (Reason: Pain (Scale Score 1-3)) 0RF sevelamer carbonate 800 mg tablet 1,600 mg PO TIDWM 0RF tamoxifen 20 mg tablet 20 mg PO DAILY@1400 0RF Multaq 400 mg tablet 1 tab PO BID 0RF midodrine 5 mg Tablet 5 mg PO BID Qty: 60 0RF benzonatate 100 mg Capsule 100 mg PO TID Qty: 20 0RF clozapine 100 mg tablet 150 mg PO BEDTIME 0RF melatonin 3 mg Tablet 6 mg PO DAILY PRN (Reason: Insomnia) 0RF levothyroxine 150 mcg tablet 1 tab PO DAILY 0RF albuterol sulfate 90 mcg/actuation Hfa Aerosol Inhaler 2 puff INHALATION Q4-6H PRN (Reason: Wheezing) 0RF Anoro Ellipta 62.5-25 mcg/actuation blister with device 1 puff inhalation DAILY 0RF ertapenem 1 gram recon soln 0.5 g IM Q24H Qty: 7 0RF hydrocortisone 2.5 % cream 1 appl topical BID PRN (Reason: skin irritation) Qty: 20 0RF Eliquis 2.5 mg tablet 2.5 mg PO BID 0RF
--- NOTE | 2021-11-13 23:04 | PM.IMHP ---
History of Present Illness Date of Service: 11/13/21 Chief Complaint: Agitation 76-year-old female with a past medical history of hypertension, hyperlipidemia, AFib on Eliquis, ESRD on hemodialysis-TTS, hypothyroidism, anxiety, depression, bipolar, history of pulmonary embolism, SBO, seizures, COPD; recently discharged from the hospital on 11/13/2021 after being treated for ESBL E coli UTI-sent home on 1 week off ertapenem via PICC line presented back today to the hospital with a chief complaint of agitation. After patient being discharged home patient become more agitated, combative, not redirectable, confused; thinks that she is and has baby in her stomach; hence moderate back to the hospital for further evaluation. At the time of entry patient is calm, alert and awake, lying in the bed; denies any pain. Mentions she has baby in the stomach. Asking for water to drink. Denies any pain in the chest or abdomen. Review of all other systems is limited. ER course: Per ER team exam was fairly benign, CC of baseline; on chemistry noted to have sodium 133, potassium 5.4, creatinine 5.6. Given concerns for delirium secondary to UTI. Admitted to the hospital for further management [facility] Medical History Abdominal pain Acute UTI Arrhythmia Arthritis AV fistula Bacteremia due to Klebsiella pneumoniae Bipolar 1 disorder Bipolar disorder Bladder cancer Bowel obstruction Breast cancer Bronchopneumonia C. difficile diarrhea Cancer Chronic nausea Chronic respiratory failure COPD (chronic obstructive pulmonary disease) COVID-19 vaccine administered Dialysis patient Diarrhea Dysphagia ESRD (end stage renal disease) ESRD (end stage renal disease) on dialysis History of 2019 novel coronavirus disease (COVID-19) Hx of hypotension Hx of radiation therapy Hydronephrosis Hyperkalemia Hypothyroidism Invasive ductal carcinoma of breast Lab test negative for COVID-19 virus Lab test positive for detection of COVID-19 virus Leukocytosis MSSA bacteremia Paroxysmal A-fib Poor appetite Positive FIT (fecal immunochemical test) Pulmonary emboli Renal failure SBO (small bowel obstruction) Seizure SIRS (systemic inflammatory response syndrome) Thyroid disease Ureteral cancer Vomiting Wears dentures Family History Father Dementia Mother Bipolar 1 disorder Brother Heart attack Other Mental health disorder Surgical History History of abdominal surgery History of appendectomy History of back surgery History of bladder surgery (~06/2020) History of cholecystectomy History of esophagogastroduodenoscopy (EGD) History of hand surgery History of lumpectomy of left breast History of lumpectomy of right breast History of tonsillectomy Hx of colonoscopy Hx of foot surgery Social History Household Members: Unknown / Unable to assess Caregiver staying overnight: No Housing: House Are you a primary care process manager to a significant other at home: No Unable to assess alcohol history related to: Unable to respond Alcohol intake: never Patient Tobacco Use Status: Former Tobacco user Quit Date: 4 years ago Tobacco use type: Cigarette Cigarette Packs Per Day: 1.5 Cigarettes Per Day: 30.0 Years Smoked: 50 e-Cigarette/Vaping Use: Never Used Second Hand Smoke Exposure: No Advance Directives Date on File: 01/24/21 service: No Current occupational status: retired and disabled Sexual orientation: Straight/Heterosexual Cognitive needs: Yes (Walker/Wheelchair) Hearing needs: No Vision needs: Yes (readng glasses) Meds Allergies Allergy/AdvReac Type Severity Reaction Status Date / Time oxycodone Allergy Severe Anaphylaxis Verified 12/04/21 11:58 adhesive tape Allergy Intermediate Blister Verified 11/13/21 21:04 aspirin Allergy Intermediate RASH Verified 11/13/21 21:04 benztropine Allergy Intermediate RASH Verified 11/13/21 21:04 NSAIDS (Non-Steroidal Allergy Intermediate RASH Verified 11/13/21 21:04 Anti-Inflamma ziprasidone Allergy Intermediate UNKNOWN Verified 11/13/21 21:04 doxycycline AdvReac Vomiting Verified 11/13/21 21:04 Home Medications Medication Instructions Recorded Confirmed Last Taken Type clonazepam 1 mg tablet 1 mg PO BEDTIME 05/21/20 11/30/21 07/14/21 History lamotrigine 150 mg tablet 150 mg PO BEDTIME 05/21/20 11/30/21 10/18/21 History acetaminophen 325 mg tablet 650 mg PO BID PRN Pain (Scale 05/22/20 11/30/21 03/19/21 History Score 1-3) tamoxifen 20 mg tablet 20 mg PO DAILY@1400 07/15/21 11/30/21 10/19/21 09:00 History apixaban 2.5 mg tablet (Eliquis) 2.5 mg PO BID 09/03/21 11/30/21 11/30/21 History sevelamer carbonate 800 mg tablet 1,600 mg PO TIDWM 09/27/21 11/30/21 11/30/21 History dronedarone 400 mg tablet (Multaq) 1 tab PO BID 10/20/21 11/30/21 11/30/21 History albuterol sulfate 90 mcg/actuation 2 puff inhalation Q4-6H PRN 11/01/21 11/30/21 Unknown History aerosol inhaler Wheezing clozapine 100 mg tablet 200 mg PO BEDTIME 11/01/21 11/30/21 Unknown History levothyroxine 150 mcg tablet 1 tab PO DAILY 11/01/21 11/30/21 11/30/21 History melatonin 3 mg tablet 6 mg PO DAILY PRN Insomnia 11/01/21 11/30/21 Unknown History umeclidinium 62.5 mcg-vilanterol 1 puff inhalation DAILY 11/01/21 11/30/21 Unknown History 25 mcg/actuation powdr for inhalation (Anoro Ellipta) clozapine 25 mg tablet 2 tab PO BID 11/30/21 11/30/21 11/30/21 History Physical Exam Vital Signs and Narrative: Vital Signs: Last Vital Signs Temp 98.5 F 11/13/21 21:04 Pulse 99 11/13/21 22:26 Resp 20 11/13/21 22:26 BP 135/103 H 11/13/21 22:26 Pulse Ox 99 11/13/21 22:26 BMI result Body Mass Index 21.2 Results Labs CBC and Chem 7: 11/20/21 07:09 11/17/21 06:56 Assessment and Plan (1) Delirious: Status: Resolved Plan 76-year-old female with a past medical history of hypertension, hyperlipidemia, AFib on Eliquis, ESRD on hemodialysis-TTS, hypothyroidism, anxiety, depression, bipolar, history of pulmonary embolism, SBO, seizures, COPD; recently discharged from the hospital on 11/13/2021 after being treated for ESBL E coli UTI-sent home on 1 week off ertapenem via PICC line presented back today to the hospital with a chief complaint of agitation. Admitted for following Delirium: Patient has waxing and waning mental status. During the recent admission patient had psychosis and had her clozapine dose increased by the psychiatric team. Will consult Psychiatry Supportive care History of ESBL E coli UTI: pt on meropenem for another seven days. History of hypothyroidism: Patient levothyroxine dose increased to 100 mcg secondary to high TSH. To recheck TSH values in 4-6 weeks. History of paroxysmal AFib: Rate controlled. Continue home apixaban History of ESRD: Patient on hemodialysis. Nephrology consult. Patient's potassium 5.4. Lokelma x1. DVT prophylaxis: Patient on Eliquis Code status: Full code Quality Stroke Does the patient have a stroke diagnosis?: No VTE Prior VTE?: No VTE Risk Level:: Medical - moderate - high VTE Device Contraindication: Treatment Not Indicated VTE Drug Contraindication: N/A - Med Ordered
[2021-11-13 23:16] VITALS: BP 108/72; PULSE 91; RESP 17; TEMP 36.9; O2SAT 97
[2021-11-13] MEDS: OLANZapine 5 MG TABLET 2.5 MG PO (23:24)
[2021-11-13] MEDS: Acetaminophen 325 MG TABLET 650 MG PO (23:24)
[2021-11-13] MEDS: Melatonin 3 MG TABLET 6 MG PO (23:27)
[2021-11-14] MEDS: 0.9 % Sodium Chloride Flush 3 ML SYRINGE IVFLUSH ×2 (00:16→22:06)
--- NOTE | 2021-11-14 00:38 | PC.NURSE ---
pt was d/c'd today. sent home with PICC line for IV abx. D/C instructions state IM abx. clarified with who states the nurse discharging earlier caught error and stated it was indeed IV abx. information relayed to MD and RX.
--- NOTE | 2021-11-14 01:55 | PC.NURSE ---
pt given crackers, and juice at 0030 per request
--- NOTE | 2021-11-14 02:36 | PC.NURSE ---
pt yelling out, unable to be redirected or reassured. pt yelling, to let her go home, to put her clothes on, to get a roving frame tender, to check on her baby ... etc repositioned and checked for incontinence.
[2021-11-14 03:22] VITALS: BP 122/63; PULSE 92; RESP 13; O2SAT 94
--- NOTE | 2021-11-14 05:25 | PC.NURSE ---
Order in computer for IM ertapenem at 0445, reached out to MD Murillo to clarify that patient is supposed to be on IV ertapenem and the next dose is supposed to be this am. states to give IV ertapenem at 0900 today.
--- NOTE | 2021-11-14 05:55 | PC.NURSE ---
Addendum entered by Neptali Watkins 11/14/21 05:56: reddened coccyx/buttocks Original Note: pt has a reddened coccyx, skin is blanchable, pt positioned on left side.
--- NOTE | 2021-11-14 06:50 | PC.NURSE ---
pt incontinent of bowels, moderate amount loose bowel movement. incontinent care given and bed change complete
[2021-11-14] MEDS: Midodrine HCl 5 MG TABLET PO ×2 (08:05→20:29)
[2021-11-14] MEDS: Apixaban 2.5 MG TABLET PO ×2 (08:05→20:29)
[2021-11-14] MEDS: Levothyroxine Sodium 150 MCG TABLET PO (08:05)
[2021-11-14] MEDS: Benzonatate 100 MG CAPSULE PO ×5 (08:06→20:29)
--- NOTE | 2021-11-14 08:10 | PC.NURSE ---
pt very aggressive and confussion noted x 4. did take morning meds with OJ without any problem.
--- NOTE | 2021-11-14 10:27 | MHC.CM.PN ---
CM CALLED PTS , STANLEY ([phone]) WHO REPORTS THE PT LIVES AT HOME WITH HIM AND HE HELPS HER WITH CARE PRN HE REPORTS SHE USES A WHEEL CHAIR AND A WALKER AND IS ACTIVE WITH COMFORT CARE PLUS VNA AND [facility] ON [facility] IN [place] FOR HD STANLEY REPORTS WHEN THE PT WAS DISCHARGED HOME YESTERDAY, THE PLAN WAS FOR HER TO COMPLETE IV ABX AT HOME, HOWEVER, LESS THAN 4 HOURS AFTER SHE ARRIVED, SHE BECAME VERY AGITATED AND WAS THROWING THINGS HE REPORTS SHE HAS HAD EPISODES LIKE THIS IN THE PAST DUE TO HER BIPOLAR D/O AND HAS REQUIRED IPLOC PCP: MADHURI MEHTA HCP ON FILE IMM DELIVERED, ORIGINAL LEFT AT BEDSIDE PER STANLEY'S REQUEST, COPY SENT TO [facility] DCP TBD HOME WITH RESUMPTION OF COMFORT PLUS VNA FOR IV ABX VS IPLOC IF PT DISCHARGES HOME, STANLEY WILL TRANSPORT
--- NOTE | 2021-11-14 11:35 | HO.PM.IMPN ---
Subjective Subjective Date of Service: 11/14/21 Interval History: cc: ams interval history: unchanged Cardiovascular Cardiovascular: Reports no additional cardiovascular complaints Respiratory Respiratory: Reports no additional respiratory complaints Physical Exam Vital Signs: Vital Signs: Last Vital Signs Temp 98.4 F 11/13/21 23:16 Pulse 92 11/14/21 03:22 Resp 13 11/14/21 03:22 BP 122/63 11/14/21 03:22 Pulse Ox 94 11/14/21 03:22 BMI result Body Mass Index 21.2 General: AO X 3, agitated Resp: CTA bilateral, no accessory muscles used CVS: S1,S2,RRR GI: soft, non tender, non distended Neuro: motor grossly intact, alert Psych: reports auditory and visual hallucinations. Objective Data Active Medications Acetaminophen (Acetaminophen 325 Mg Tablet) 650 mg PO Q6H PRN PRN Reason: Pain, Mild (Pain Scale 1-3) Last Admin: 11/13/21 23:24 Dose: 650 mg Documented by: LAWRENCE Acetaminophen (Acetaminophen 325 Mg Tablet) 650 mg PO BID PRN PRN Reason: Pain (Scale Score 1-3) Albuterol Sulfate (Albuterol Sulfate 90 Mcg 8 Gm Inhaler) 2 puff INHALE RQ4H PRN PRN Reason: Wheezing Apixaban (Apixaban 2.5 Mg Tablet) 2.5 mg PO BID [facility] Last Admin: 11/14/21 08:05 Dose: 2.5 mg Documented by: JUSTINA Benzonatate (Benzonatate 100 Mg Capsule) 100 mg PO TID PRN PRN Reason: Cough Last Admin: 11/14/21 08:07 Dose: 100 mg Documented by: JUSTINA Benzonatate (Benzonatate 100 Mg Capsule) 100 mg PO TID [facility] Last Admin: 11/14/21 08:06 Dose: 100 mg Documented by: JUSTINA Clonazepam (Clonazepam 1 Mg Tablet) 1 mg PO BEDTIME [facility] Clozapine (Clozapine 25 Mg Tablet) 150 mg PO BEDTIME [facility] Dronedarone (Dronedarone Hcl 400 Mg Tablet) 400 mg PO BID [facility] Hydrocortisone (Hydrocortisone 1 % Cream 28.35 Gm Tube) 1 appl TOPICAL BID PRN PRN Reason: skin irritation Hydroxyzine HCl (Hydroxyzine Hcl 50 Mg Tablet) 50 mg PO BEDTIME PRN PRN Reason: for insomnia Meropenem 500 mg/ Sodium (Chloride) 50 mls @ 100 mls/hr IV DAILY@1645 [facility] Lamotrigine (Lamotrigine 25 Mg Tablet) 150 mg PO BEDTIME [facility] Levothyroxine Sodium (Levothyroxine Sodium 150 Mcg Tablet) 150 mcg PO DAILY@0630 [facility] Last Admin: 11/14/21 08:05 Dose: 150 mcg Documented by: JUSTINA Melatonin (Melatonin 3 Mg Tablet) 6 mg PO BEDTIME PRN PRN Reason: Insomnia Last Admin: 11/13/21 23:27 Dose: 6 mg Documented by: LAWRENCE Melatonin (Melatonin 3 Mg Tablet) 6 mg PO DAILY PRN PRN Reason: Insomnia Midodrine (Midodrine Hcl 5 Mg Tablet) 5 mg PO BID [facility] Last Admin: 11/14/21 08:05 Dose: 5 mg Documented by: JUSTINA Non-Formulary Medication (Umeclidinium-Vilanterol [Anoro Ellipta]) 1 puff INHALE DAILY [facility] Sevelamer Carbonate (Sevelamer Carbonate Tablet 800 Mg Tablet) 1,600 mg PO TIDWM [facility] Sodium Chloride (0.9 % Sodium Chloride Flush 3 Ml Syringe) 3 ml IVFLUSH QSHIFT [facility] Last Admin: 11/14/21 07:21 Dose: Not Given Documented by: KARAN Non-Admin Reason: Med Not Available Tamoxifen Citrate (Tamoxifen Citrate 10 Mg Tablet) 20 mg PO DAILY@1400 [facility] Assessment and Plan (1) Bipolar 1 disorder: Status: Acute Plan 76F brought back to hospital for increasing agitation, hallucinations acute psychosis in patient with history of bipolar no evidence of active infection continue cloazaril, lamictal psych to see ESBL UTI not contributing to psychosis continue merem (ertapenem as outpatient) 6 more days hypothyroid synthroid increased to 150mcg from 125mcg, follow up tsh in 4 weeks paroxysmal afib eliquis multaq ESRD HD reason for continued hospitalization: acutely psychotic, unable to care for patient, needs safe dispo. Quality Stroke Does the patient have a stroke diagnosis?: No VTE Prior VTE?: No VTE Risk Level:: Medical - moderate - high VTE Device Contraindication: Treatment Not Indicated VTE Drug Contraindication: N/A - Med Ordered
[2021-11-14] MEDS: Melatonin 3 MG TABLET 6 MG PO ×2 (12:05→20:29)
[2021-11-14] MEDS: Sevelamer Carbonate Tablet 800 MG TABLET 1600 MG PO ×2 (14:00→18:24)
--- NOTE | 2021-11-14 14:12 | PC.NURSE ---
pt was upset and spit all her pills out after putting them in pudding. Will revist med administration later if she is agreeable
[2021-11-14 14:59] LABS: COVID-19 Test Negative (Negative); IDNOW Serial# 55D5AD1C
--- NOTE | 2021-11-14 15:45 | HO.PSYCHPN ---
Subjective Subjective Date of Service: 11/14/21 Reason For Visit: delirium Medical Problems Affecting Mental Status: Yes (delirium) Review of Systems Acute medical concerns: Yes delirium Medical Review of Systems: unchanged Review of Systems Review of Systems Yes Unobtainable due to mental condition Mental Status Exam Mental Status Exam Narrative: A&O except to self. In hospital attire, appears older than stated age. Good eye contact, attentive. No Tics or Tremors. No abnormal involuntary movements. Delusional thought, has towel wrapped up, states that is her baby. Incontinent of stool. Unable to engage in meaningful conversation for longer than several moments at a time. Patient Appearance: Appropriate Patient Orientation: Person Level of Consciousness: Awake Patient Behavior: Confused and Good Eye Contact Affect Description: Angry (irritable, swearing) Patient Cognition Impaired: Yes Ability to Follow Directions: Poor Speech Pattern: Rambling, Rapid and Includes Profanity Memory Description: Remote Impaired, Immediate Impaired, Detention Impaired, Recent Impaired and Working Impaired Hallucinations: Visual (believes she is holding a baby) Delusions: Present (Believes she has given to a baby.) Thought Process: Disoriented and Confusion Thought Content: positive for Flight of Ideas, positive for Disoriented and positive for Loose Associations Judgement: Poor Diagnostics Vital Signs (24Hr): Vital Signs - 24 hr 11/13/21 21:04 11/13/21 22:26 11/13/21 23:16 Temperature 98.5 F 98.4 F Pulse Rate 104 H 99 91 Respiratory Rate 18 20 17 Blood Pressure 125/105 H 135/103 H 108/72 Pulse Oximetry 98 99 97 11/14/21 03:22 Temperature Pulse Rate 92 Respiratory Rate 13 Blood Pressure 122/63 Pulse Oximetry 94 BMI result Body Mass Index 21.2 Labs Labs: Laboratory Results - last 48 hr 11/14/21 14:39 COVID-19 ([facility]) Negative COVID-19 Clin Com See Note Medications Medications Current Medications Acetaminophen (Acetaminophen 325 Mg Tablet) 650 mg PO Q6H PRN PRN Reason: Pain, Mild (Pain Scale 1-3) Last Admin: 11/13/21 23:24 Dose: 650 mg Documented by: Acetaminophen (Acetaminophen 325 Mg Tablet) 650 mg PO BID PRN PRN Reason: Pain (Scale Score 1-3) Albuterol Sulfate (Albuterol Sulfate 90 Mcg 8 Gm Inhaler) 2 puff INHALE RQ4H PRN PRN Reason: Wheezing Apixaban (Apixaban 2.5 Mg Tablet) 2.5 mg PO BID [facility] Last Admin: 11/14/21 08:05 Dose: 2.5 mg Documented by: Benzonatate (Benzonatate 100 Mg Capsule) 100 mg PO TID PRN PRN Reason: Cough Last Admin: 11/14/21 14:05 Dose: 100 mg Documented by: Benzonatate (Benzonatate 100 Mg Capsule) 100 mg PO TID [facility] Last Admin: 11/14/21 14:04 Dose: 100 mg Documented by: Clonazepam (Clonazepam 1 Mg Tablet) 1 mg PO BEDTIME [facility] Clozapine (Clozapine 25 Mg Tablet) 150 mg PO BEDTIME [facility] Dronedarone (Dronedarone Hcl 400 Mg Tablet) 400 mg PO BID [facility] Last Admin: 11/14/21 14:10 Dose: Not Given Documented by: Hydrocortisone (Hydrocortisone 1 % Cream 28.35 Gm Tube) 1 appl TOPICAL BID PRN PRN Reason: skin irritation Hydroxyzine HCl (Hydroxyzine Hcl 50 Mg Tablet) 50 mg PO BEDTIME PRN PRN Reason: for insomnia Meropenem 500 mg/ Sodium (Chloride) 50 mls @ 100 mls/hr IV DAILY@1645 [facility] Lamotrigine (Lamotrigine 25 Mg Tablet) 150 mg PO BEDTIME [facility] Levothyroxine Sodium (Levothyroxine Sodium 150 Mcg Tablet) 150 mcg PO DAILY@0630 [facility] Last Admin: 11/14/21 08:05 Dose: 150 mcg Documented by: Melatonin (Melatonin 3 Mg Tablet) 6 mg PO BEDTIME PRN PRN Reason: Insomnia Last Admin: 11/13/21 23:27 Dose: 6 mg Documented by: Melatonin (Melatonin 3 Mg Tablet) 6 mg PO DAILY PRN PRN Reason: Insomnia Last Admin: 11/14/21 12:05 Dose: 6 mg Documented by: Midodrine (Midodrine Hcl 5 Mg Tablet) 5 mg PO BID [facility] Last Admin: 11/14/21 08:05 Dose: 5 mg Documented by: Non-Formulary Medication (Umeclidinium-Vilanterol [Anoro Ellipta]) 1 puff INHALE DAILY [facility] Sevelamer Carbonate (Sevelamer Carbonate Tablet 800 Mg Tablet) 1,600 mg PO TIDWM [facility] Last Admin: 11/14/21 14:10 Dose: Not Given Documented by: Sodium Chloride (0.9 % Sodium Chloride Flush 3 Ml Syringe) 3 ml IVFLUSH QSHIFT [facility] Last Admin: 11/14/21 07:21 Dose: Not Given Documented by: Tamoxifen Citrate (Tamoxifen Citrate 10 Mg Tablet) 20 mg PO DAILY@1400 [facility] Allergies Allergies Allergy/AdvReac Type Severity Reaction Status Date / Time adhesive tape Allergy Intermediate Blister Verified 11/13/21 21:04 aspirin Allergy Intermediate RASH Verified 11/13/21 21:04 benztropine Allergy Intermediate RASH Verified 11/13/21 21:04 NSAIDS (Non-Steroidal Allergy Intermediate RASH Verified 11/13/21 21:04 Anti-Inflamma ziprasidone Allergy Intermediate UNKNOWN Verified 11/13/21 21:04 doxycycline AdvReac Vomiting Verified 11/13/21 21:04 oxycodone AdvReac Anaphylaxis Verified 11/13/21 21:04 Assessment & Plan Assessment & Plan (1) Bipolar 1 disorder: Status: Acute Code(s): F31.9 - Bipolar disorder, unspecified Assessment and Plan: Patient has not been receiving outpatient dose of Clozaril. She has been receiving 150 mg daily, outpatient dose is 250 mg daily. (2) Delirious: Status: Acute Code(s): R41.0 - Disorientation, unspecified Assessment and Plan: Patient appears to have delirium, appears to have decompensated since last seen by psychiatric provider on 11/11/2021. Unable to hold meaningful conversation, oriented to self only. Plan Psych follow-up on 11/14/2021: Recommendations: Give Clozapine 175 mg tonight at bedtime. Starting tomorrow, give clozapine 25 mg b.i.d., and 150 mg at bedtime. May want to continue olanzapine 2.5 p.r.n.. I Have discussed these recommendations with Dr. Aguila Ramos. CARE team has been notified that provider requesting [facility]. 76F brought back to hospital for increasing agitation, hallucinations acute psychosis in patient with history of bipolar no evidence of active infection continue cloazaril, lamictal psych to see ESBL UTI not contributing to psychosis continue merem (ertapenem as outpatient) 6 more days hypothyroid synthroid increased to 150mcg from 125mcg, follow up tsh in 4 weeks paroxysmal afib eliquis multaq ESRD HD reason for continued hospitalization: acutely psychotic, unable to care for patient, needs safe dispo. I spent minutes with the patient and/or on the patient floor today, greater than?50% of which was spent counseling/coordinating care. Reason for contiued inpatient stay Substantial Risk for: inability to function, rapid decompensation and med/psych decompensation
[2021-11-14 15:57] VITALS: BP 117/67; PULSE 98; RESP 18; O2SAT 98
[2021-11-14 16:28] VITALS: BP 118/66; PULSE 85; TEMP 37.2; O2SAT 96
--- NOTE | 2021-11-14 16:32 | P.CNID_ITS ---
History of Present Illness Data of Consult Service Date: 11/14/21 Requesting physician: Aguila Ramos Primary Care Provider: Gabriel Acosta MD HPI Reason for consult: agitation She presents with agitation and delusions. She has h/o bipolar disorder. She is day 7/14 Ertapenem for ESBL Enterobacter aerogenes She has no rash or diarrhea Review of Systems Review of Systems: Yes Unobtainable due to mental condition PMFSH Past Medical History Medical History Abdominal pain Acute UTI Arrhythmia Arthritis AV fistula Bipolar 1 disorder Bipolar disorder Bladder cancer Bowel obstruction Breast cancer Bronchopneumonia C. difficile diarrhea Cancer Chronic nausea Chronic respiratory failure COPD (chronic obstructive pulmonary disease) COVID-19 vaccine administered Dialysis patient Diarrhea Dysphagia ESRD (end stage renal disease) History of 2018 novel coronavirus disease (COVID-19) Hx of hypotension Hx of radiation therapy Hydronephrosis Hyperkalemia Hypothyroidism Invasive ductal carcinoma of breast Lab test negative for COVID-19 virus Lab test positive for detection of COVID-19 virus Leukocytosis MSSA bacteremia Paroxysmal A-fib Poor appetite Positive FIT (fecal immunochemical test) Pulmonary emboli Renal failure SBO (small bowel obstruction) Seizure SIRS (systemic inflammatory response syndrome) Thyroid disease Ureteral cancer Vomiting Wears dentures Family History Family History Father Dementia Mother Bipolar 1 disorder Brother Heart attack Other Mental health disorder Family history: reviewed and not pertinent Surgical History Surgical History History of abdominal surgery History of appendectomy History of back surgery History of bladder surgery (~06/2020) History of cholecystectomy History of esophagogastroduodenoscopy (EGD) History of hand surgery History of lumpectomy of left breast History of lumpectomy of right breast History of tonsillectomy Hx of colonoscopy Hx of foot surgery Social History Social History Household Members: Significant Other Housing: House Are you a primary child care associate to a significant other at home: No Do you presently have visiting nurse or other home services: Yes Alcohol intake: never Patient Tobacco Use Status: Former Tobacco user Quit Date: 4 years ago Tobacco use type: Cigarette Cigarette Packs Per Day: 1.5 Cigarettes Per Day: 30.0 Years Smoked: 50 e-Cigarette/Vaping Use: Never Used Second Hand Smoke Exposure: No Use of substances other than those prescribed or required for medical reasons: Unable to respond Advance Directives: Yes Advance Directives on File: Yes Advance Directives Date on File: 01/24/21 service: No Current occupational status: retired and disabled Cognitive needs: Yes (Walker/Wheelchair) Hearing needs: No Vision needs: Yes (readng glasses) Meds Allergies Allergy/AdvReac Type Severity Reaction Status Date / Time adhesive tape Allergy Intermediate Blister Verified 11/13/21 21:04 aspirin Allergy Intermediate RASH Verified 11/13/21 21:04 benztropine Allergy Intermediate RASH Verified 11/13/21 21:04 NSAIDS (Non-Steroidal Allergy Intermediate RASH Verified 11/13/21 21:04 Anti-Inflamma ziprasidone Allergy Intermediate UNKNOWN Verified 11/13/21 21:04 doxycycline AdvReac Vomiting Verified 11/13/21 21:04 oxycodone AdvReac Anaphylaxis Verified 11/13/21 21:04 Active Medications: Current Medications Acetaminophen (Acetaminophen 325 Mg Tablet) 650 mg PO Q6H PRN PRN Reason: Pain, Mild (Pain Scale 1-3) Last Admin: 11/13/21 23:24 Dose: 650 mg Documented by: Acetaminophen (Acetaminophen 325 Mg Tablet) 650 mg PO BID PRN PRN Reason: Pain (Scale Score 1-3) Albuterol Sulfate (Albuterol Sulfate 90 Mcg 8 Gm Inhaler) 2 puff INHALE RQ4H PRN PRN Reason: Wheezing Apixaban (Apixaban 2.5 Mg Tablet) 2.5 mg PO BID [facility] Last Admin: 11/14/21 08:05 Dose: 2.5 mg Documented by: Benzonatate (Benzonatate 100 Mg Capsule) 100 mg PO TID PRN PRN Reason: Cough Last Admin: 11/14/21 14:05 Dose: 100 mg Documented by: Benzonatate (Benzonatate 100 Mg Capsule) 100 mg PO TID [facility] Last Admin: 11/14/21 14:04 Dose: 100 mg Documented by: Clonazepam (Clonazepam 1 Mg Tablet) 1 mg PO BEDTIME [facility] Clozapine (Clozapine 25 Mg Tablet) 25 mg PO DAILY [facility] Clozapine 100 mg/ Clozapine 75 (mg) 175 mg PO BEDTIME [facility] Dronedarone (Dronedarone Hcl 400 Mg Tablet) 400 mg PO BID [facility] Last Admin: 11/14/21 14:10 Dose: Not Given Documented by: Hydrocortisone (Hydrocortisone 1 % Cream 28.35 Gm Tube) 1 appl TOPICAL BID PRN PRN Reason: skin irritation Hydroxyzine HCl (Hydroxyzine Hcl 50 Mg Tablet) 50 mg PO BEDTIME PRN PRN Reason: for insomnia Meropenem 500 mg/ Sodium (Chloride) 50 mls @ 100 mls/hr IV DAILY@1645 [facility] Lamotrigine (Lamotrigine 25 Mg Tablet) 150 mg PO BEDTIME [facility] Levothyroxine Sodium (Levothyroxine Sodium 150 Mcg Tablet) 150 mcg PO DAILY@0630 [facility] Last Admin: 11/14/21 08:05 Dose: 150 mcg Documented by: Melatonin (Melatonin 3 Mg Tablet) 6 mg PO BEDTIME PRN PRN Reason: Insomnia Last Admin: 11/13/21 23:27 Dose: 6 mg Documented by: Melatonin (Melatonin 3 Mg Tablet) 6 mg PO DAILY PRN PRN Reason: Insomnia Last Admin: 11/14/21 12:05 Dose: 6 mg Documented by: Midodrine (Midodrine Hcl 5 Mg Tablet) 5 mg PO BID [facility] Last Admin: 11/14/21 08:05 Dose: 5 mg Documented by: Non-Formulary Medication (Umeclidinium-Vilanterol [Anoro Ellipta]) 1 puff INHALE DAILY [facility] Sevelamer Carbonate (Sevelamer Carbonate Tablet 800 Mg Tablet) 1,600 mg PO TIDWM [facility] Last Admin: 11/14/21 14:10 Dose: Not Given Documented by: Sodium Chloride (0.9 % Sodium Chloride Flush 3 Ml Syringe) 3 ml IVFLUSH QSHIFT [facility] Last Admin: 11/14/21 07:21 Dose: Not Given Documented by: Tamoxifen Citrate (Tamoxifen Citrate 10 Mg Tablet) 20 mg PO DAILY@1400 [facility] Last Admin: 11/14/21 16:01 Dose: Not Given Documented by: Home Medications Medication Instructions Recorded Confirmed Last Taken Type clonazepam 1 mg tablet 1 mg PO BEDTIME 05/21/20 11/13/21 07/14/21 History lamotrigine 150 mg tablet 150 mg PO BEDTIME 05/21/20 11/13/21 10/18/21 History acetaminophen 325 mg tablet 650 mg PO BID PRN 05/22/20 11/13/21 03/19/21 History tamoxifen 20 mg tablet 20 mg PO DAILY@1400 07/15/21 11/13/21 10/19/21 09:00 History apixaban 2.5 mg tablet (Eliquis) 2.5 mg PO BID 09/03/21 11/13/21 10/19/21 History 0900 sevelamer carbonate 800 mg tablet 1,600 mg PO TIDWM tab 09/27/21 11/13/21 Unknown History dronedarone 400 mg tablet (Multaq) 1 tab PO BID 10/20/21 11/13/21 Unknown History albuterol sulfate 90 mcg/actuation 2 puff INHALATION Q4-6H PRN 11/01/21 11/13/21 Unknown History aerosol inhaler clozapine 100 mg tablet 150 mg PO BEDTIME 11/01/21 11/13/21 Unknown History levothyroxine 150 mcg tablet 1 tab PO DAILY 11/01/21 11/13/21 Unknown History melatonin 3 mg tablet 6 mg PO DAILY PRN 11/01/21 11/13/21 Unknown History umeclidinium 62.5 mcg-vilanterol 1 puff INHALATION DAILY 11/01/21 11/13/21 Unknown History 25 mcg/actuation powdr for inhalation (Anoro Ellipta) Physical Exam Vital Signs: Vital Signs: Last Vital Signs Temp 98.9 F 11/14/21 16:28 Pulse 85 11/14/21 16:28 Resp 18 11/14/21 15:57 BP 118/66 11/14/21 16:28 Pulse Ox 96 11/14/21 16:28 BMI result Body Mass Index 21.2 Const: General: cooperative HEENT: Head: Yes normal to inspection Mouth: Normal oral and palatal mucosa present Resp: Effort & Inspection: normal respiratory effort Cardio: Rate: regular rate Rhythm: regular rhythm GI: Palpation (GI): Soft to palpation and nontender Extrem: General: Yes normal to inspection Assessment and Plan (1) Bipolar 1 disorder: Status: Acute (2) Infection due to Enterobacter aerogenes: Status: Acute She has been taking Ertapenem for enterobacter infection urine Penicillins are doubtful but possible cause of delirium (3) Delirious: Status: Acute (4) Encephalopathy: Status: Acute Plan Continue Merem and stop at 10 days if symptoms persist and do not resolve with psychiatric care
[2021-11-14 20:06] VITALS: BP 93/50; PULSE 60; TEMP 36.8; O2SAT 96
[2021-11-14] MEDS: clonazePAM 1 MG TABLET PO (20:29)
[2021-11-14] MEDS: Dronedarone HCl 400 MG TABLET PO (20:30)
[2021-11-14] MEDS: hydrOXYzine HCL 50 MG TABLET PO (20:30)
[2021-11-14] MEDS: lamoTRIgine 25 MG TABLET 150 MG PO (20:30)
--- NOTE | 2021-11-14 21:41 | PC.NURSE ---
patient was incontinent of loose amount of stool and large amount of urine times 2 ,patient was given a bed bath and bedding was change ,patient now resting quietly in bed .
[2021-11-14] MEDS: cloZAPine 100 MG TABLET PO (21:55)
[2021-11-14] MEDS: cloZAPine 25 MG TABLET 75 MG PO (21:59)
[2021-11-15 00:43] VITALS: BP 105/79; PULSE 101; RESP 17; O2SAT 93
[2021-11-15 08:07] VITALS: BP 92/49; PULSE 83; RESP 20; O2SAT 96
[2021-11-15] MEDS: Levothyroxine Sodium 150 MCG TABLET PO (09:48)
[2021-11-15] MEDS: Sevelamer Carbonate Tablet 800 MG TABLET 1600 MG PO ×2 (09:48→17:44)
[2021-11-15] MEDS: Midodrine HCl 5 MG TABLET PO ×2 (09:49→19:15)
[2021-11-15] MEDS: Dronedarone HCl 400 MG TABLET PO ×2 (09:49→19:16)
[2021-11-15] MEDS: Apixaban 2.5 MG TABLET PO ×2 (09:49→19:16)
[2021-11-15] MEDS: cloZAPine 25 MG TABLET PO (09:49)
[2021-11-15] MEDS: Benzonatate 100 MG CAPSULE PO ×3 (10:03→19:16)
--- NOTE | 2021-11-15 11:02 | P.PNIM_ITS ---
Subjective Subjective Date of Service: 11/15/21 Interval History: cc: ams interval history:no complaints, wants to go home Cardiovascular Cardiovascular: Reports no additional cardiovascular complaints Respiratory Respiratory: Reports no additional respiratory complaints Physical Exam Vital Signs: Vital Signs: Last Vital Signs Temp 98.3 F 11/14/21 20:06 Pulse 83 11/15/21 08:07 Resp 20 11/15/21 08:07 BP 92/49 L 11/15/21 08:07 Pulse Ox 96 11/15/21 08:07 BMI result Body Mass Index 21.2 General: AO X 3, NAD Resp:? CTA bilateral, no accessory muscles used CVS: S1,S2,RRR GI: soft, non tender, non distended Neuro:? motor grossly intact, alert Psych: reports auditory and visual hallucinations. Objective Data Active Medications Acetaminophen (Acetaminophen 325 Mg Tablet) 650 mg PO Q6H PRN PRN Reason: Pain, Mild (Pain Scale 1-3) Last Admin: 11/13/21 23:24 Dose: 650 mg Documented by: LAWRENCE Acetaminophen (Acetaminophen 325 Mg Tablet) 650 mg PO BID PRN PRN Reason: Pain (Scale Score 1-3) Albuterol Sulfate (Albuterol Sulfate 90 Mcg 8 Gm Inhaler) 2 puff INHALE RQ4H PRN PRN Reason: Wheezing Apixaban (Apixaban 2.5 Mg Tablet) 2.5 mg PO BID [facility] Last Admin: 11/15/21 09:49 Dose: 2.5 mg Documented by: CHARLES Benzonatate (Benzonatate 100 Mg Capsule) 100 mg PO TID PRN PRN Reason: Cough Last Admin: 11/14/21 14:05 Dose: 100 mg Documented by: JUSTINA Benzonatate (Benzonatate 100 Mg Capsule) 100 mg PO TID [facility] Last Admin: 11/15/21 10:03 Dose: 100 mg Documented by: CHARLES Clonazepam (Clonazepam 1 Mg Tablet) 1 mg PO BEDTIME [facility] Last Admin: 11/14/21 20:29 Dose: 1 mg Documented by: ALESSANDRA Clozapine (Clozapine 25 Mg Tablet) 25 mg PO DAILY [facility] Last Admin: 11/15/21 09:49 Dose: 25 mg Documented by: CHARLES Clozapine (Clozapine 100 Mg Tablet) 100 mg PO BEDTIME [facility] Last Admin: 11/14/21 21:55 Dose: 100 mg Documented by: ALESSANDRA Clozapine (Clozapine 25 Mg Tablet) 75 mg PO BEDTIME [facility] Last Admin: 11/14/21 21:59 Dose: 75 mg Documented by: ALESSANDRA Dronedarone (Dronedarone Hcl 400 Mg Tablet) 400 mg PO BID [facility] Last Admin: 11/15/21 09:49 Dose: 400 mg Documented by: CHARLES Hydrocortisone (Hydrocortisone 1 % Cream 28.35 Gm Tube) 1 appl TOPICAL BID PRN PRN Reason: skin irritation Hydroxyzine HCl (Hydroxyzine Hcl 50 Mg Tablet) 50 mg PO BEDTIME PRN PRN Reason: for insomnia Last Admin: 11/14/21 20:30 Dose: 50 mg Documented by: ALESSANDRA Meropenem 500 mg/ Sodium (Chloride) 50 mls @ 100 mls/hr IV DAILY@1645 [facility] Last Infusion: 11/14/21 17:41 Dose: 0 mls/hr Documented by: HARITHA Lamotrigine (Lamotrigine 25 Mg Tablet) 150 mg PO BEDTIME [facility] Last Admin: 11/14/21 20:30 Dose: 150 mg Documented by: ALESSANDRA Levothyroxine Sodium (Levothyroxine Sodium 150 Mcg Tablet) 150 mcg PO DAILY@0630 [facility] Last Admin: 11/15/21 09:48 Dose: 150 mcg Documented by: CHARLES Melatonin (Melatonin 3 Mg Tablet) 6 mg PO BEDTIME PRN PRN Reason: Insomnia Last Admin: 11/14/21 20:29 Dose: 6 mg Documented by: ALESSANDRA Melatonin (Melatonin 3 Mg Tablet) 6 mg PO DAILY PRN PRN Reason: Insomnia Last Admin: 11/14/21 12:05 Dose: 6 mg Documented by: JUSTINA Midodrine (Midodrine Hcl 5 Mg Tablet) 5 mg PO BID [facility] Last Admin: 11/15/21 09:49 Dose: 5 mg Documented by: CHARLES Non-Formulary Medication (Umeclidinium-Vilanterol [Anoro Ellipta]) 1 puff INHALE DAILY [facility] Sevelamer Carbonate (Sevelamer Carbonate Tablet 800 Mg Tablet) 1,600 mg PO TIDWM [facility] Last Admin: 11/15/21 09:48 Dose: 1,600 mg Documented by: CHARLES Sodium Chloride (0.9 % Sodium Chloride Flush 3 Ml Syringe) 3 ml IVFLUSH QSHIFT [facility] Last Admin: 11/15/21 09:49 Dose: Not Given Documented by: CHARLES Non-Admin Reason: IV Running Tamoxifen Citrate (Tamoxifen Citrate 10 Mg Tablet) 20 mg PO DAILY@1400 [facility] Last Admin: 11/14/21 16:01 Dose: Not Given Documented by: HARITHA Non-Admin Reason: Patient Refused Labs Labs: Laboratory Results - last 24 hr 11/14/21 14:39 COVID-19 ([facility]) Negative COVID-19 Clin Com See Note Assessment and Plan (1) Bipolar 1 disorder: Status: Acute Plan 76F brought back to hospital for increasing agitation, hallucinations acute psychosis in patient with history of bipolar no evidence of active infection continue cloazaril, lamictal psych following ESBL UTI not contributing to psychosis continue merem (ertapenem as outpatient) 5 more days, also doubt abx as contributory as symptoms started prior to initiation hypothyroid synthroid increased to 150mcg from 125mcg, follow up tsh in 4 weeks paroxysmal afib eliquis multaq ESRD HD reason for continued hospitalization: acutely psychotic, unable to care for patient, needs safe dispo. Quality Stroke Does the patient have a stroke diagnosis?: No VTE Prior VTE?: No VTE Risk Level:: Medical - moderate - high VTE Device Contraindication: Treatment Not Indicated VTE Drug Contraindication: N/A - Med Ordered
--- NOTE | 2021-11-15 12:59 | HE.PHANOTE ---
Addendum entered by Daniela Landaverde, [facility] 11/15/21 13:53: PT ANC 6.9. Patrick (psychiatrist receptionist secretary) contacted [facility] and informed me the doctor who the patient was registered to was registered incorrectly. [id number]. Original Note: Clozaril Pt discharged on 11/13/21 and then readmitted. Pt took dose on 11/12, missed 11/13 and took on 11/14. Contacted Emma Burns who then contacted her outpatient provider, Melyssa Sanchez, to submit Patient Status Form . Because of this we could not obtain an BIOMETRIC TECHNICIAN but MD will work on this. ANC ordered.
[2021-11-15 13:33] LABS: Neutrophils Absolute Auto 6.9 x10*3/uL (2.0-8.3); WBCANC 10.1 X10*3/uL
--- NOTE | 2021-11-15 15:12 | MHC.CARE ---
Plan for Pt to followed up with psychiatry. CARE Team will not be following case unless prompted to by psychiatry.
[2021-11-15 16:00] VITALS: BP 101/72; PULSE 64; RESP 16; TEMP 36.5; O2SAT 98
--- NOTE | 2021-11-15 16:34 | PM.PSYCN ---
History of Present Illness Date of Service: 11/15/21 Chief Complaint: delirium Reason for Consult: disposition Sources of Information: patient interviewed, chart reviewed and crisis/core team assessment reviewed HPI Narrative: Evette is a 76 y.o. Female who carries a dx of bipolar disorder. She has a past medical history of hyperlipidemia, ESRD on hemodialysis since 2016, breast cancer, hypothyroidism, PE on Eliquis, small bowel obstruction, and COPD. She was recently admitted to [facility] with CC of left hand pain and swelling due to inflammatory arthritis, given prednisone and discharged on 11/02. She was also admitted to the hospital with a chief complaint of pneumonia /Klebsiella bacteremia and was discharged on 10/27/2021 on oral antibiotics. On 11/07/21 pt was brought to [facility] by her due to increased confusion and insomnia. Per , pt has been verbally more combative, not directable, and slightly confused. Per hospitalist intake, pt was very confused, delirious, and has visual hallucinations. Pt was found to have a UTI and TSH of 13. Pt was admitted [place] [facility] due to significant encephalopathy likely secondary to UTI as well as psychosis in the setting of recent hospitalization and prednisone treatment. She was started on IV antibiotics and synthroid increased to 200 mg. During this admission, her clozapine was increased to 200 mg per psych consult and she was discharged home on 11/13/21. Pt was then brought back to the hospital for altered mental status, as has not found her to be at baseline. I evaluated the pt this evening and spoke with her , Neptali. Per , pt had not been sleeping at home. He reports pt?s OP psychiatrist, Dr. Ti Aguirre decreased pt?s clozapine dose to 150 mg after a surgery in August and this was ?working,? however starting in the ?beginning of October she has had terrible medical setbacks? that has led to decompensation. During her most recent admission to [facility] for her UTI, pt?s clozapine was increased to 200 mg at bedtime per psych consult. Per , the increased clozapine dose is ?beginning to work,? as pt is sleeping more, has been less agitated. He says when she was discharged from the hospital on Friday she was ?calm? and ?her clarity seemed to have come back,? however says once she arrived home ?it was as though a switch went off and she became completely violent,? i.e. threw things on the floor, verbally aggressive, swearing at . This is not her baseline. Pt has also had delusional thought content that she still has a baby and will go back to work. Per pt, her mood is ?good.? Says she is worried about catching a plane to [place] and talks about her brother as if he is alive. She says she has seizures, however confirms that this is not true. Pt has been eating some of her meals.? Past Psychiatric History: -Hx of multiple inpatient psych admissions at [facility] dating back to 2012, 2014, 2017, and 2019 for manic sx, psychosis. Pt has hx of stabilization on clozapine and lamictal, previously on clozapine 300 mg and lamictal 300 mg with good effect. Of note, pt has a hx of significant medical problems, which often leads to decompensation. -Past meds: restoril, klonopin, wellbutrin, lithium (had been stable on this for many years and stable, however developed renal failure and most recently stable on clozapine), zyprexa. Medical Evaluation Reviewed: Yes [facility] Medical History Abdominal pain Acute UTI Arrhythmia Arthritis AV fistula Bipolar 1 disorder Bipolar disorder Bladder cancer Bowel obstruction Breast cancer Bronchopneumonia C. difficile diarrhea Cancer Chronic nausea Chronic respiratory failure COPD (chronic obstructive pulmonary disease) COVID-19 vaccine administered Dialysis patient Diarrhea Dysphagia ESRD (end stage renal disease) History of 2019 novel coronavirus disease (COVID-19) Hx of hypotension Hx of radiation therapy Hydronephrosis Hyperkalemia Hypothyroidism Invasive ductal carcinoma of breast Lab test negative for COVID-19 virus Lab test positive for detection of COVID-19 virus Leukocytosis MSSA bacteremia Paroxysmal A-fib Poor appetite Positive FIT (fecal immunochemical test) Pulmonary emboli Renal failure SBO (small bowel obstruction) Seizure SIRS (systemic inflammatory response syndrome) Thyroid disease Ureteral cancer Vomiting Wears dentures Surgical History History of abdominal surgery History of appendectomy History of back surgery History of bladder surgery (~06/2020) History of cholecystectomy History of esophagogastroduodenoscopy (EGD) History of hand surgery History of lumpectomy of left breast History of lumpectomy of right breast History of tonsillectomy Hx of colonoscopy Hx of foot surgery Diagnostics Vital Signs (24Hr): Vital Signs - 24 hr 11/14/21 20:06 11/15/21 00:43 11/15/21 08:07 Temperature 98.3 F Pulse Rate 60 101 H 83 Respiratory Rate 17 20 Blood Pressure 93/50 L 105/79 92/49 L Pulse Oximetry 96 93 96 BMI result Body Mass Index 21.2 Labs Results: 11/16/21 06:10 11/16/21 06:10 Labs: Laboratory Results - last 48 hr 11/14/21 11/15/21 14:39 13:08 Absolute Neuts (auto) 6.9 COVID-19 (PARTH) Negative COVID-19 Clin Com See Note Mental Status Exam Mental Status Exam Narrative: A&O except to situation. In hospital attire, appears older than stated age. Good eye contact, attentive. No Tics or Tremors. No abnormal involuntary movements. Irritable, did not want to engage in interview. Non-pressured speech, spontaneous with regular rate and rhythm, normal volume and prosody. No prolonged speech latency or dysarthria. Mood is ?good,? affect is congruent. Denies SI/SIB/HI upon inquiry. Denies A/VH. Endorses delusional thought content. Thoughts are distracted and confused. Pt with long hx of bipolar disorder, on clozapine. Insight/ Judgment limited. Medications Medications Current Medications Acetaminophen (Acetaminophen 325 Mg Tablet) 650 mg PO Q6H PRN PRN Reason: Pain, Mild (Pain Scale 1-3) Last Admin: 11/13/21 23:24 Dose: 650 mg Documented by: Acetaminophen (Acetaminophen 325 Mg Tablet) 650 mg PO BID PRN PRN Reason: Pain (Scale Score 1-3) Albuterol Sulfate (Albuterol Sulfate 90 Mcg 8 Gm Inhaler) 2 puff INHALE RQ4H PRN PRN Reason: Wheezing Apixaban (Apixaban 2.5 Mg Tablet) 2.5 mg PO BID HERNESTO Last Admin: 11/15/21 09:49 Dose: 2.5 mg Documented by: Benzonatate (Benzonatate 100 Mg Capsule) 100 mg PO TID PRN PRN Reason: Cough Last Admin: 11/14/21 14:05 Dose: 100 mg Documented by: Benzonatate (Benzonatate 100 Mg Capsule) 100 mg PO TID [facility] Last Admin: 11/15/21 10:03 Dose: 100 mg Documented by: Clonazepam (Clonazepam 1 Mg Tablet) 1 mg PO BEDTIME [facility] Last Admin: 11/14/21 20:29 Dose: 1 mg Documented by: Clozapine (Clozapine 25 Mg Tablet) 25 mg PO DAILY [facility] Last Admin: 11/15/21 09:49 Dose: 25 mg Documented by: Clozapine (Clozapine 100 Mg Tablet) 100 mg PO BEDTIME [facility] Last Admin: 11/14/21 21:55 Dose: 100 mg Documented by: Clozapine (Clozapine 25 Mg Tablet) 75 mg PO BEDTIME [facility] Last Admin: 11/14/21 21:59 Dose: 75 mg Documented by: Dronedarone (Dronedarone Hcl 400 Mg Tablet) 400 mg PO BID [facility] Last Admin: 11/15/21 09:49 Dose: 400 mg Documented by: Hydrocortisone (Hydrocortisone 1 % Cream 28.35 Gm Tube) 1 appl TOPICAL BID PRN PRN Reason: skin irritation Hydroxyzine HCl (Hydroxyzine Hcl 50 Mg Tablet) 50 mg PO BEDTIME PRN PRN Reason: for insomnia Last Admin: 11/14/21 20:30 Dose: 50 mg Documented by: Meropenem 500 mg/ Sodium (Chloride) 50 mls @ 100 mls/hr IV DAILY@1645 [facility] Last Infusion: 11/14/21 17:41 Dose: Infused Documented by: Lamotrigine (Lamotrigine 25 Mg Tablet) 150 mg PO BEDTIME [facility] Last Admin: 11/14/21 20:30 Dose: 150 mg Documented by: Levothyroxine Sodium (Levothyroxine Sodium 150 Mcg Tablet) 150 mcg PO DAILY@0630 [facility] Last Admin: 11/15/21 09:48 Dose: 150 mcg Documented by: Melatonin (Melatonin 3 Mg Tablet) 6 mg PO BEDTIME PRN PRN Reason: Insomnia Last Admin: 11/14/21 20:29 Dose: 6 mg Documented by: Melatonin (Melatonin 3 Mg Tablet) 6 mg PO DAILY PRN PRN Reason: Insomnia Last Admin: 11/14/21 12:05 Dose: 6 mg Documented by: Midodrine (Midodrine Hcl 5 Mg Tablet) 5 mg PO BID [facility] Last Admin: 11/15/21 09:49 Dose: 5 mg Documented by: Non-Formulary Medication (Umeclidinium-Vilanterol [Anoro Ellipta]) 1 puff INHALE DAILY [facility] Sevelamer Carbonate (Sevelamer Carbonate Tablet 800 Mg Tablet) 1,600 mg PO TIDWM [facility] Last Admin: 11/15/21 09:48 Dose: 1,600 mg Documented by: Sodium Chloride (0.9 % Sodium Chloride Flush 3 Ml Syringe) 3 ml IVFLUSH QSHIFT [facility] Last Admin: 11/15/21 16:01 Dose: Not Given Documented by: Tamoxifen Citrate (Tamoxifen Citrate 10 Mg Tablet) 20 mg PO DAILY@1400 [facility] Last Admin: 11/14/21 16:01 Dose: Not Given Documented by: Allergies Allergies Allergy/AdvReac Type Severity Reaction Status Date / Time adhesive tape Allergy Intermediate Blister Verified 11/13/21 21:04 aspirin Allergy Intermediate RASH Verified 11/13/21 21:04 benztropine Allergy Intermediate RASH Verified 11/13/21 21:04 NSAIDS (Non-Steroidal Allergy Intermediate RASH Verified 11/13/21 21:04 Anti-Inflamma ziprasidone Allergy Intermediate UNKNOWN Verified 11/13/21 21:04 doxycycline AdvReac Vomiting Verified 11/13/21 21:04 oxycodone AdvReac Anaphylaxis Verified 11/13/21 21:04 Assessment & Plan Assessment & Plan (1) Bipolar 1 disorder: Status: Acute Code(s): F31.9 - Bipolar disorder, unspecified Plan Plan: Pt recently hospitalized for UTI, put on antibiotics. It appears her sx of tawny may be multifactorial, as her clozapine and lamictal doses have been decreased due to multiple medical admissions in the past month and there is a question of delirium, pt may just need time to re-compensate. Pt previously on clozapine 300 mg QHS and lamictal 300 mg QD. Recommend for inpatient level of care for med management for bipolar DO. I spoke with pt?s OP psychiatrist, Dr. Ti Aguirre, who confirms pt is not at baseline, as she is not typically aggressive or delusional. She is in agreement with plan for IPLOC. Will continue clozapine at 200 mg QHS, last increased 11/13/21 per previous psych consult. -Continue monitoring medically. Patient is currently medically cleared. -Patient cannot leave AGAINST MEDICAL ADVICE. -Care Team evaluation for bed search. Patient will be a CV initial treatments ordered collateral history needed ? I spent minutes with the patient and/or on the patient floor today, greater than?50% of which was spent counseling/coordinating care.
[2021-11-15] MEDS: Tamoxifen Citrate 10 MG TABLET 20 MG PO (17:44)
[2021-11-15] MEDS: clonazePAM 1 MG TABLET PO (19:15)
[2021-11-15] MEDS: Melatonin 3 MG TABLET 6 MG PO (19:15)
[2021-11-15] MEDS: cloZAPine 100 MG TABLET 200 MG PO (19:16)
[2021-11-15] MEDS: 0.9 % Sodium Chloride Flush 3 ML SYRINGE IVFLUSH (19:18)
[2021-11-15] MEDS: lamoTRIgine 100 MG TABLET 150 MG PO (19:31)
[2021-11-15 20:00] VITALS: BP 101/45; PULSE 94; RESP 16; TEMP 36.9; O2SAT 99
--- NOTE | 2021-11-15 23:11 | PM.PNNEP ---
Subjective Subjective Date of Service: 11/15/21 Interval history: Seen and examined, events noted Physical Exam Vital Signs: Vital Signs: Last Vital Signs Temp 98.4 F 11/15/21 20:00 Pulse 94 11/15/21 20:00 Resp 16 11/15/21 20:00 BP 101/45 L 11/15/21 20:00 Pulse Ox 99 11/15/21 20:00 BMI result Body Mass Index 21.2 Const: General: cooperative HEENT: Head: Yes normal to inspection Mouth: Normal oral and palatal mucosa present Resp: Effort & Inspection: normal respiratory effort Cardio: Rate: regular rate Rhythm: regular rhythm GI: Palpation (GI): Soft to palpation and nontender Extrem: General: Yes normal to inspection Objective Data Labs Labs: Laboratory Results - last 24 hr 11/15/21 13:08 Absolute Neuts (auto) 6.9 Procedures Date of Service Date of Service: 11/15/21 Assessment & Plan Assessment and plan (1) Bipolar 1 disorder: Status: Acute Plan 76F brought back to hospital for increasing agitation, hallucinations 1. ESRD:contHDmwf 2.AMS: psych eval 3.Anemia 4. UTI: Abx as per ID REC: contHD 3x/w wk mwf;abx as per ID; psych eval Time Spent With Patient Time: Total time spent is greater than 50% in coordination of care (as documented) at patient's floor/unit and/or counseling patient: Progress Note: Quality Stroke Does the patient have a stroke diagnosis?: No
[2021-11-15 23:54] VITALS: BP 122/67; PULSE 86; RESP 20; TEMP 36; O2SAT 94
[2021-11-16 03:45] VITALS: PULSE 80; RESP 19
[2021-11-16 06:43] LABS: Anion Gap 19 (12-20); Blood Urea Nitrogen 33 mg/dL (9-16); Calcium 10.4 mg/dL (8.4-10.2); Carbon Dioxide 23 mmol/L (22-29); Chloride 104 mmol/L (96-108); Creatinine Clr Calc Pharmacy 6.5; Estimated Glomerular Filt Rate 7; Glucose Fasting 76 mg/dL (60-99); Potassium 5.8 mmol/L (3.3-5.1); Sodium 140 mmol/L (135-145)
[2021-11-16 06:44] LABS: Hematocrit 34.7 % (37.0-47.0); Hemoglobin 10.8 g/dl (12.0-16.0); Mean Corpuscular HGB Conc 31.1 g/dl (31.0-35.0); Mean Corpuscular Hemoglobin 30.9 pg (27.0-33.0); Mean Corpuscular Volume 99.4 fL (80.0-98.0); Mean Platelet Volume 9.9 fL (9.4-12.3); Platelet Count 269 X10*3/uL (160-400); Red Blood Count 3.49 X10*6/uL (4.20-5.50); Red Cell Distribution Width 15.9 % (11.0-16.0); White Blood Count 9.7 X10*3/uL (4.8-10.8)
[2021-11-16 08:28] VITALS: PULSE 80; RESP 19
--- NOTE | 2021-11-16 11:21 | PC.NURSE ---
morning meds held, pt taken to dialysis at 0830, she refused breakfast. dialysis nurse called requesting pain meds for pt, charge nurse made aware and will send a nurse from the main ED to medicate pt. Pt admitted to S1, report given to ALTAGRACIA Ceron. Viki from Care Team requests to be notified when pt returns from Dialysis. will follow-up.
[2021-11-16 12:43] VITALS: PULSE 91; RESP 14; O2SAT 97
[2021-11-16] MEDS: Sevelamer Carbonate Tablet 800 MG TABLET 1600 MG PO ×2 (13:20→16:29)
--- NOTE | 2021-11-16 13:20 | PM.DS ---
DS: Providers Provider Date of Service: 11/16/21 Date of admission: 11/13/21 23:02 Primary care physician: Gabriel Acosta MD Consults: 11/13/21 23:03 Consult to Psychiatry Routine Consulting Provider: Psych Covering Reason for consultation: delirium/agitation/psychosis 11/13/21 23:04 Consult to Infectious Diseases Routine Consulting Provider: Angelina Salamanca Reason for consultation: bacteremia 11/14/21 04:44 Consult to Infectious Diseases Routine Consulting Provider: Angelina Salamanca Reason for consultation: ESBL UTI on mereopenem 11/14/21 04:47 Consult to Nephrology Routine Consulting Provider: Héctor Marroquin Reason for consultation: ESRD DS: Diagnosis Discharge Diagnosis (1) Bipolar 1 disorder: Status: Acute DS: Summary Hospital Course Hospital Course: from initial hpi: Chief Complaint: Agitation 76-year-old female with a past medical history of hypertension, hyperlipidemia, AFib on Eliquis, ESRD on hemodialysis-TTS, hypothyroidism, anxiety, depression, bipolar, history of pulmonary embolism, SBO, seizures, COPD; recently discharged from the hospital on 11/13/2021 after being treated for ESBL E coli UTI-sent home on 1 week off ertapenem via PICC line presented back today to the hospital with a chief complaint of agitation.? After patient being discharged home patient become more agitated, combative, not redirectable, confused; thinks that she is and has baby in her stomach; hence moderate back to the hospital for further evaluation.? At the time of entry patient is calm, alert and awake, lying in the bed; denies any pain.? Mentions she has baby in the stomach.? Asking for water to drink.? Denies any pain in the chest or abdomen.? Review of all other systems is limited.? ER course: Per ER team exam was fairly benign, CC of baseline; on chemistry noted to have sodium 133, potassium 5.4, creatinine 5.6.? Given concerns for delirium secondary to UTI.? Admitted to the hospital for further management hospital course: Patient was admitted for acute psychosis in patient with history of bipolar disease, there was concern of delirium due to urinary tract infection, however, this is unlikely as patient has been treated appropriately and continues to have symptoms. There is also some concern that the antibiotics were contributing to mental status, however, this is also unlikely as symptoms started prior to antibiotics. Patient has 4 more days left on her carbapenem for ESBL UTI. For hypothyroidism her Synthroid was increased from 125 mcg to 150 mcg, TSH should be followed up in 4 weeks, for paroxysmal atrial fibrillation she was continue Eliquis and Multaq, for end-stage renal disease with hyperkalemia she was continued on her hemodialysis. Patient will be transferred to inpatient psychiatry for further management. Time Spent with Patient Time attestation: Total time spent providing and/or coordinating discharge services: Discharge coordination time: Greater than 30 minutes Quality: Safe Use of Opioids Does Pt have an Active Cancer Diagnosis on the Problem List?: No Quality: Stroke Does the patient have a stroke diagnosis?: No Physical Exam Vital Signs: Vital Signs: Last Vital Signs Temp 96.8 F 11/15/21 23:54 Pulse 91 11/16/21 12:43 Resp 14 11/16/21 12:43 BP 122/67 11/15/21 23:54 Pulse Ox 97 11/16/21 12:43 BMI result Body Mass Index 21.2 Const General:?cooperative HEENT Head:?Yes normal to inspection Mouth:?Normal oral and palatal mucosa present Resp Effort & Inspection:?normal respiratory effort Cardio Rate:?regular rate Rhythm:?regular rhythm GI Palpation (GI):?Soft to palpation and nontender Extrem General:?Yes normal to inspection DS: Data Data Completed and Pending Completed studies during hospitalization [Text1]: Procedures Destruction of Bladder, Via Natural or Artificial Opening Endoscopic (03/21/21) Dilation of Bilateral Ureters with Intraluminal Device, Via Natural or Artificial Opening Endoscopic (03/21/21) Extirpation of Matter from Right Ureter, Via Natural or Artificial Opening Endoscopic (03/21/21) Fluoroscopy of Kidneys, Ureters and Bladder (03/21/21) Insertion of Infusion Device into Right Cephalic Vein, Percutaneous Approach (11/08/21) Insertion of Infusion Device into Superior Vena Cava, Percutaneous Approach (11/08/21) Performance of Urinary Filtration, Intermittent, Less than 6 Hours Per Day (11/08/21) Transfusion of Nonautologous Red Blood Cells into Peripheral Vein, Percutaneous Approach (10/20/21) Ultrasonography of Superior Vena Cava, Guidance (11/08/21) Labs on day of discharge: Laboratory Results - last 24 hr 11/15/21 11/16/21 11/16/21 13:08 06:10 06:10 WBC 9.7 RBC 3.49 L Hgb 10.8 L Hct 34.7 L MCV 99.4 H MCH 30.9 MCHC 31.1 RDW 15.9 Plt Count 269 MPV 9.9 Absolute Neuts (auto) 6.9 Absolute Nucleated RBC 0.000 Nucleated RBC % (auto) 0.0 Sodium 140 Potassium 5.8 H Chloride 104 Carbon Dioxide 23 Anion Gap 19 BUN 33 H Creatinine 6.22 H* Estim Creat Clear Calc 6.5 Estimated GFR 7 Fasting Glucose 76 Calcium 10.4 H D Discharge Plan Discharge Patient Disposition: Xfer Psychiatric Hosp Discharge Diagnosis: psychosis Referrals: Gabriel Acosta MD [Primary Care Provider] - 1 Week Discharge Medications: Continued hydroxyzine pamoate 50 mg capsule 50 mg PO BEDTIME PRN (Reason: for insomnia) Qty: 90 1RF lamotrigine 150 mg tablet 150 mg PO BEDTIME 0RF clonazepam 1 mg tablet 1 mg PO BEDTIME 0RF acetaminophen 325 mg Tablet 650 mg PO BID PRN (Reason: Pain (Scale Score 1-3)) 0RF sevelamer carbonate 800 mg tablet 1,600 mg PO TIDWM 0RF tamoxifen 20 mg tablet 20 mg PO DAILY@1400 0RF Multaq 400 mg tablet 1 tab PO BID 0RF midodrine 5 mg Tablet 5 mg PO BID Qty: 60 0RF benzonatate 100 mg Capsule 100 mg PO TID Qty: 20 0RF clozapine 100 mg tablet 150 mg PO BEDTIME 0RF melatonin 3 mg Tablet 6 mg PO DAILY PRN (Reason: Insomnia) 0RF levothyroxine 150 mcg tablet 1 tab PO DAILY 0RF albuterol sulfate 90 mcg/actuation Hfa Aerosol Inhaler 2 puff INHALATION Q4-6H PRN (Reason: Wheezing) 0RF Anoro Ellipta 62.5-25 mcg/actuation blister with device 1 puff inhalation DAILY 0RF ertapenem 1 gram recon soln 0.5 g IM Q24H Qty: 7 0RF Rx Instructions: pt d/c'd today. sent home with PICC line for IV abx. D/C instructions state IM abx. hydrocortisone 2.5 % cream 1 appl topical BID PRN (Reason: skin irritation) Qty: 20 0RF Eliquis 2.5 mg tablet 2.5 mg PO BID 0RF Activity on Discharge: As tolerated Stand Alone Forms: Patient Portal Discharge page
--- NOTE | 2021-11-16 13:24 | HO.PSYADMNOT ---
HPI Date of Service: 11/16/21 Chief Complaint: Tawny Sources of Information: patient interviewed, chart reviewed and crisis/core team assessment reviewed HPI Subjective Notes: Sen Warning and Conditional Voluntary Narrative: The patient is a 76 year old female, , with a long history of bipolar disorder with several comorbilities such as ESRD, OA and recently UTI with delirium that requered inpatent to medicine. While in medicine, her Clozari needed to be lowered due to respiratory depression. She was discharged but later came back to the ED with harvinder symptoms of tawny. On interview, the patent had fast speech, elated mood, intrussive, and grandiose. She requested psychiatric medications for her bipolar . Past Psychiatric History: -Hx of multiple inpatient psych admissions at [facility] dating back to 2012, 2014, 2017, and 2019 for manic sx, psychosis. Pt has hx of stabilization on clozapine and lamictal, previously on clozapine 300 mg and lamictal 300 mg with good effect. Of note, pt has a hx of significant medical problems, which often leads to decompensation. -Past meds: restoril, klonopin, wellbutrin, lithium (had been stable on this for many years and stable, however developed renal failure and most recently stable on clozapine), zyprexa. Medical Evaluation Reviewed: Yes [facility] Medical History Abdominal pain Acute UTI Arrhythmia Arthritis AV fistula Bipolar 1 disorder Bipolar disorder Bladder cancer Bowel obstruction Breast cancer Bronchopneumonia C. difficile diarrhea Cancer Chronic nausea Chronic respiratory failure COPD (chronic obstructive pulmonary disease) COVID-19 vaccine administered Dialysis patient Diarrhea Dysphagia ESRD (end stage renal disease) History of 2019 novel coronavirus disease (COVID-19) Hx of hypotension Hx of radiation therapy Hydronephrosis Hyperkalemia Hypothyroidism Invasive ductal carcinoma of breast Lab test negative for COVID-19 virus Lab test positive for detection of COVID-19 virus Leukocytosis MSSA bacteremia Paroxysmal A-fib Poor appetite Positive FIT (fecal immunochemical test) Pulmonary emboli Renal failure SBO (small bowel obstruction) Seizure SIRS (systemic inflammatory response syndrome) Thyroid disease Ureteral cancer Vomiting Wears dentures Surgical History History of abdominal surgery History of appendectomy History of back surgery History of bladder surgery (~06/2020) History of cholecystectomy History of esophagogastroduodenoscopy (EGD) History of hand surgery History of lumpectomy of left breast History of lumpectomy of right breast History of tonsillectomy Hx of colonoscopy Hx of foot surgery Family History: Denies Social History: , lives with her , good social support. Substance History: Denies Trauma History: Denies Diagnostics Vital Signs (24Hr): Vital Signs - 24 hr 11/15/21 16:00 11/15/21 20:00 11/15/21 23:54 Temperature 97.7 F 98.4 F 96.8 F Pulse Rate 64 94 86 Respiratory Rate 16 16 20 Blood Pressure 101/72 101/45 L 122/67 Pulse Oximetry 98 99 94 11/16/21 03:45 11/16/21 08:28 11/16/21 12:43 Temperature Pulse Rate 80 80 91 Respiratory Rate 19 19 14 Blood Pressure Pulse Oximetry 97 BMI result Body Mass Index 21.2 Labs Results: 11/16/21 06:10 11/16/21 06:10 Labs: Laboratory Results - last 48 hr 11/14/21 11/15/21 11/16/21 14:39 13:08 06:10 WBC 9.7 RBC 3.49 L Hgb 10.8 L Hct 34.7 L MCV 99.4 H MCH 30.9 MCHC 31.1 RDW 15.9 Plt Count 269 MPV 9.9 Absolute Neuts (auto) 6.9 Absolute Nucleated RBC 0.000 Nucleated RBC % (auto) 0.0 Sodium Potassium Chloride Carbon Dioxide Anion Gap BUN Creatinine Estim Creat Clear Calc Estimated GFR Fasting Glucose Calcium COVID-19 ([facility]) Negative COVID-19 Clin Com See Note 11/16/21 06:10 WBC RBC Hgb Hct MCV MCH MCHC RDW Plt Count MPV Absolute Neuts (auto) Absolute Nucleated RBC Nucleated RBC % (auto) Sodium 140 Potassium 5.8 H Chloride 104 Carbon Dioxide 23 Anion Gap 19 BUN 33 H Creatinine 6.22 H* Estim Creat Clear Calc 6.5 Estimated GFR 7 Fasting Glucose 76 Calcium 10.4 H D COVID-19 ([facility]) COVID-19 Clin Com Meds/Allergies Meds Home Medications Acetaminophen (Acetaminophen 325 Mg Tablet) 650 mg PO Q6H PRN PRN Reason: Pain, Mild (Pain Scale 1-3) Last Admin: 11/13/21 23:24 Dose: 650 mg Documented by: Acetaminophen (Acetaminophen 325 Mg Tablet) 650 mg PO BID PRN PRN Reason: Pain (Scale Score 1-3) Al Hydroxide/Mg Hydroxide (Magnesium Hydrox/Alum Hydrox 30 Ml Oral.Susp) 30 ml PO Q6H PRN PRN Reason: Heartburn/Nausea Albuterol Sulfate (Albuterol Sulfate 90 Mcg 8 Gm Inhaler) 2 puff INHALE RQ4H PRN PRN Reason: Wheezing Apixaban (Apixaban 2.5 Mg Tablet) 2.5 mg PO BID [facility] Last Admin: 11/16/21 10:59 Dose: Not Given Documented by: Benzonatate (Benzonatate 100 Mg Capsule) 100 mg PO TID PRN PRN Reason: Cough Last Admin: 11/14/21 14:05 Dose: 100 mg Documented by: Benzonatate (Benzonatate 100 Mg Capsule) 100 mg PO TID [facility] Last Admin: 11/16/21 10:59 Dose: Not Given Documented by: Clonazepam (Clonazepam 1 Mg Tablet) 1 mg PO BEDTIME [facility] Last Admin: 11/15/21 19:15 Dose: 1 mg Documented by: Clozapine (Clozapine 100 Mg Tablet) 200 mg PO BEDTIME [facility] Last Admin: 11/15/21 19:16 Dose: 200 mg Documented by: Dronedarone (Dronedarone Hcl 400 Mg Tablet) 400 mg PO BID [facility] Last Admin: 11/16/21 10:59 Dose: Not Given Documented by: Hydrocortisone (Hydrocortisone 1 % Cream 28.35 Gm Tube) 1 appl TOPICAL BID PRN PRN Reason: skin irritation Hydroxyzine HCl (Hydroxyzine Hcl 50 Mg Tablet) 50 mg PO BEDTIME PRN PRN Reason: for insomnia Last Admin: 11/14/21 20:30 Dose: 50 mg Documented by: Meropenem 500 mg/ Sodium (Chloride) 50 mls @ 100 mls/hr IV DAILY@1645 [facility] Last Infusion: 11/15/21 19:22 Dose: Infused Documented by: Lamotrigine (Lamotrigine 100 Mg Tablet) 150 mg PO BEDTIME [facility] Last Admin: 11/15/21 19:31 Dose: 150 mg Documented by: Levothyroxine Sodium (Levothyroxine Sodium 150 Mcg Tablet) 150 mcg PO DAILY@0630 [facility] Last Admin: 11/15/21 09:48 Dose: 150 mcg Documented by: Magnesium Hydroxide (Milk Of Magnesia 30 Ml Oral.Susp) 30 ml PO DAILY PRN PRN Reason: Constipation Melatonin (Melatonin 3 Mg Tablet) 6 mg PO BEDTIME PRN PRN Reason: Insomnia Last Admin: 11/15/21 19:15 Dose: 6 mg Documented by: Melatonin (Melatonin 3 Mg Tablet) 6 mg PO DAILY PRN PRN Reason: Insomnia Last Admin: 11/14/21 12:05 Dose: 6 mg Documented by: Midodrine (Midodrine Hcl 5 Mg Tablet) 5 mg PO BID [facility] Last Admin: 11/16/21 10:59 Dose: Not Given Documented by: Non-Formulary Medication (Umeclidinium-Vilanterol [Anoro Ellipta]) 1 puff INHALE DAILY [facility] Sevelamer Carbonate (Sevelamer Carbonate Tablet 800 Mg Tablet) 1,600 mg PO TIDWM [facility] Last Admin: 11/16/21 13:20 Dose: 1,600 mg Documented by: Sodium Chloride (0.9 % Sodium Chloride Flush 3 Ml Syringe) 3 ml IVFLUSH QSHIFT [facility] Last Admin: 11/16/21 08:30 Dose: Not Given Documented by: Tamoxifen Citrate (Tamoxifen Citrate 10 Mg Tablet) 20 mg PO DAILY@1400 [facility] Last Admin: 11/15/21 17:44 Dose: 20 mg Documented by: Trazodone HCl (Trazodone Hcl 50 Mg Tablet) 50 mg PO BEDTIME PRN PRN Reason: Insomnia Allergies Allergies Allergy/AdvReac Type Severity Reaction Status Date / Time adhesive tape Allergy Intermediate Blister Verified 11/13/21 21:04 aspirin Allergy Intermediate RASH Verified 11/13/21 21:04 benztropine Allergy Intermediate RASH Verified 11/13/21 21:04 NSAIDS (Non-Steroidal Allergy Intermediate RASH Verified 11/13/21 21:04 Anti-Inflamma ziprasidone Allergy Intermediate UNKNOWN Verified 11/13/21 21:04 doxycycline AdvReac Vomiting Verified 11/13/21 21:04 oxycodone AdvReac Anaphylaxis Verified 11/13/21 21:04 Mental Status Exam Mental Status Exam Patient Appearance: Appropriate Patient Orientation: Person and Situation Level of Consciousness: Awake and Restless Patient Behavior: Guarded and Suspicious Mood Description: Withdrawn and Depressed Affect Description: Labile Ability to Follow Directions: Fair Speech Pattern: Rambling and Soft-Spoken Hallucinations: Auditory Delusions: Paranoid Ideation and Grandiose Thought Process: Illogical and Slowed Thinking Thought Content: positive for [place], positive for Circumstantial and positive for Poverty of Content Judgement: Poor Assessment & Plan Assessment & Plan (1) Bipolar 1 disorder: Status: Acute Code(s): F31.9 - Bipolar disorder, unspecified Plan elderly female with a long history of bipolar disorder and other several medical comorbidities admitted to Psychiatry for exacerbation of tawny since she recently had and has survey bustillos of her chronic renal failure and medications needed to be lowered. At this moment she presents with tawny unable to take care of herself. Plan 1. Restart Clozaril and start slow titration up to therapeutic level. 2. Continue other medications Patient educated on: diagnosis Informed Consent: further education needed Reason for continued inpatient stay Substantial Risk for: inability to function, rapid decompensation and med/psych decompensation
[2021-11-16 14:30] VITALS: BP 107/55; PULSE 105; RESP 16; TEMP 36.8; O2SAT 96
--- NOTE | 2021-11-16 14:31 | PM.PNNEP ---
Subjective Subjective Date of Service: 11/16/21 Interval history: Dialyzed today no events Physical Exam Vital Signs: Vital Signs: Last Vital Signs Temp 96.8 F 11/15/21 23:54 Pulse 91 11/16/21 12:43 Resp 14 11/16/21 12:43 BP 122/67 11/15/21 23:54 Pulse Ox 97 11/16/21 12:43 BMI result Body Mass Index 21.2 Const: General: cooperative HEENT: Head: Yes normal to inspection Mouth: Normal oral and palatal mucosa present Resp: Effort & Inspection: normal respiratory effort Cardio: Rate: regular rate Rhythm: regular rhythm GI: Palpation (GI): Soft to palpation and nontender Extrem: General: Yes normal to inspection Objective Data Labs CBC & Chem 7: 11/16/21 06:10 11/16/21 06:10 Labs: Laboratory Results - last 24 hr 11/16/21 11/16/21 06:10 06:10 WBC 9.7 RBC 3.49 L Hgb 10.8 L Hct 34.7 L MCV 99.4 H MCH 30.9 MCHC 31.1 RDW 15.9 Plt Count 269 MPV 9.9 Absolute Nucleated RBC 0.000 Nucleated RBC % (auto) 0.0 Sodium 140 Potassium 5.8 H Chloride 104 Carbon Dioxide 23 Anion Gap 19 BUN 33 H Creatinine 6.22 H* Estim Creat Clear Calc 6.5 Estimated GFR 7 Fasting Glucose 76 Calcium 10.4 H D Procedures Date of Service Date of Service: 11/16/21 Assessment & Plan Assessment and plan (1) Bipolar 1 disorder: Status: Acute Plan 76F brought back to hospital for increasing agitation, hallucinations Plan: - ESRD on MWF schedule - Hgb 10.8 EPO 20,000u x1 - Meropenem per ID (please call me with final ABx plans, Meropenem cannot be given at dialysis) Time Spent With Patient Time: Total time spent is greater than 50% in coordination of care (as documented) at patient's floor/unit and/or counseling patient: Progress Note: Quality Stroke Does the patient have a stroke diagnosis?: No
--- NOTE | 2021-11-16 15:13 | MHC.CLN ---
NUTRITION PATIENT WITH ESRD, ON HEMODIALYSIS. RECOMMEND DIET TO REFLECT DIALYSIS PARAMETERS: 2 GRAM SODIUM, LOW POTASSIUM, LOW PHOSPHOROUS.
[2021-11-16] MEDS: Benzonatate 100 MG CAPSULE PO ×2 (16:28→20:19)
[2021-11-16] MEDS: Tamoxifen Citrate 10 MG TABLET 20 MG PO (16:28)
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
[2021-11-16] MEDS: 0.9 % Sodium Chloride Flush 3 ML SYRINGE IVFLUSH (19:00)
[2021-11-16 20:15] VITALS: BP 82/53; PULSE 102; RESP 20; TEMP 36.6; O2SAT 97
[2021-11-16] MEDS: Midodrine HCl 5 MG TABLET PO (20:18)
[2021-11-16] MEDS: cloZAPine 100 MG TABLET 200 MG PO (20:18)
[2021-11-16] MEDS: clonazePAM 1 MG TABLET PO (20:19)
[2021-11-16] MEDS: Apixaban 2.5 MG TABLET PO (20:19)
[2021-11-16] MEDS: Dronedarone HCl 400 MG TABLET PO (20:19)
[2021-11-16] MEDS: lamoTRIgine 100 MG TABLET 150 MG PO (20:20)
[2021-11-16] MEDS: Melatonin 3 MG TABLET 6 MG PO (20:23)
[2021-11-17] MEDS: Levothyroxine Sodium 150 MCG TABLET PO (05:58)
[2021-11-17 06:00] VITALS: BP 98/54; PULSE 99; RESP 16; TEMP 36.5; O2SAT 93
[2021-11-17] MEDS: Acetaminophen 325 MG TABLET 650 MG PO (06:15)
[2021-11-17] MEDS: Benzonatate 100 MG CAPSULE PO ×4 (06:16→19:55)
--- NOTE | 2021-11-17 06:24 | PC.NURSE ---
Pt. incontinent of urine and moderate amount of loose stool x2 between [id number]. Buttocks red, skin dry. Barrier cream applied during pericare and briefs changed. Pt. c/o all over body pain. Medicated with 650mg Tylenol at 0615. Pt. with intermittent productive cough. Medicated with Tessalon 100mg at 0616. Head of bed elevated.
[2021-11-17 08:01] LABS: Alanine Aminotransferase < 6 U/L (0-31); Albumin Level 3.3 g/dL (3.5-5.0); Alkaline Phosphatase 112 U/L (39-117); Anion Gap 16 (12-20); Aspartate Amino Transferase 10 U/L (5-31); Bilirubin Total 0.3 mg/dL (0.0-1.0); Blood Urea Nitrogen 25 mg/dL (9-16); Calcium 10.9 mg/dL (8.4-10.2); Carbon Dioxide 25 mmol/L (22-29); Chloride 102 mmol/L (96-108); Cholesterol 93 mg/dL; Estimated Glomerular Filt Rate 10; Glucose Fasting 83 mg/dL (60-99); HDL Cholesterol 35 mg/dL; LDL Cholesterol Calculated 35 mg/dl; Potassium 5.6 mmol/L (3.3-5.1); Sodium 137 mmol/L (135-145); Total Protein 6.3 g/dL (6.5-8.0); Triglycerides 117 mg/dL
[2021-11-17 09:00] VITALS: BP 110/58; PULSE 91; RESP 16; TEMP 36.3; O2SAT 93
[2021-11-17] MEDS: Midodrine HCl 5 MG TABLET PO ×2 (09:47→19:54)
[2021-11-17] MEDS: Apixaban 2.5 MG TABLET PO ×2 (09:47→19:53)
[2021-11-17] MEDS: Dronedarone HCl 400 MG TABLET PO ×2 (09:47→19:55)
[2021-11-17] MEDS: Sevelamer Carbonate Tablet 800 MG TABLET 1600 MG PO ×3 (09:47→19:55)
[2021-11-17 10:39] VITALS: BP 110/58; PULSE 91; RESP 16; TEMP 36.3; O2SAT 93
[2021-11-17] MEDS: Tamoxifen Citrate 10 MG TABLET 20 MG PO (14:34)
[2021-11-17] MEDS: lamoTRIgine 100 MG TABLET 150 MG PO (19:51)
[2021-11-17] MEDS: cloZAPine 100 MG TABLET 200 MG PO (19:53)
[2021-11-17] MEDS: clonazePAM 1 MG TABLET PO (19:54)
[2021-11-17] MEDS: 0.9 % Sodium Chloride Flush 3 ML SYRINGE IVFLUSH (19:55)
[2021-11-17 20:51] VITALS: BP 93/52; PULSE 90; RESP 18; TEMP 36.9; O2SAT 96
--- NOTE | 2021-11-17 21:25 | P.PNPSI_ITS ---
Subjective Subjective Date of Service: 11/17/21 Reason For Visit: Savita Interim History: pt asking when her is going to be visiting and for a pillow under her on the wheelchair. otherwise no requests or complaints for MD. per staff, diarrhea today. refusing flush in PICC line. inadequate hygiene, such as feces on face and hands. pressure ulcer on posterior. c/o pain in vaginal area. Mental Status Exam Mental Status Exam Patient Appearance: Appropriate Patient Orientation: Person and Situation Level of Consciousness: Awake and Restless Patient Behavior: Guarded and Suspicious Mood Description: Withdrawn and Depressed Affect Description: Labile Ability to Follow Directions: Fair Speech Pattern: Rambling and Soft-Spoken Thought Process: Illogical and Slowed Thinking Thought Content: positive for [place], positive for Circumstantial and positive for Poverty of Content Judgement: Poor Diagnostics Vital Signs (24Hr): Vital Signs - 24 hr 11/17/21 06:00 11/17/21 09:00 11/17/21 10:39 Temperature 97.7 F 97.4 F 97.4 F Pulse Rate 99 91 91 Respiratory Rate 16 16 16 Blood Pressure 98/54 L 110/58 L 110/58 L Pulse Oximetry 93 93 93 11/17/21 20:51 Temperature 98.5 F Pulse Rate 90 Respiratory Rate 18 Blood Pressure 93/52 L Pulse Oximetry 96 BMI result Body Mass Index 21.2 Labs Results: 11/16/21 06:10 11/17/21 06:56 Labs: Laboratory Results - last 48 hr 11/16/21 11/16/21 11/17/21 06:10 06:10 06:56 WBC 9.7 RBC 3.49 L Hgb 10.8 L Hct 34.7 L MCV 99.4 H MCH 30.9 MCHC 31.1 RDW 15.9 Plt Count 269 MPV 9.9 Absolute Nucleated RBC 0.000 Nucleated RBC % (auto) 0.0 Sodium 140 137 Potassium 5.8 H 5.6 H Chloride 104 102 Carbon Dioxide 23 25 Anion Gap 19 16 BUN 33 H 25 H Creatinine 6.22 H* 4.51 H* Estim Creat Clear Calc 6.5 9.0 Estimated GFR 7 10 Fasting Glucose 76 83 Calcium 10.4 H D 10.9 H Total Bilirubin 0.3 AST 10 ALT < 6 Alkaline Phosphatase 112 Total Protein 6.3 L Albumin 3.3 L Triglycerides 117 Cholesterol 93 LDL Cholesterol, Calc 35 HDL Cholesterol 35 Medications Medications Current Medications Acetaminophen (Acetaminophen 325 Mg Tablet) 650 mg PO Q6H PRN PRN Reason: Pain, Mild (Pain Scale 1-3) Last Admin: 11/17/21 06:15 Dose: 650 mg Documented by: Acetaminophen (Acetaminophen 325 Mg Tablet) 650 mg PO BID PRN PRN Reason: Pain (Scale Score 1-3) Al Hydroxide/Mg Hydroxide (Magnesium Hydrox/Alum Hydrox 30 Ml Oral.Susp) 30 ml PO Q6H PRN PRN Reason: Heartburn/Nausea Albuterol Sulfate (Albuterol Sulfate 90 Mcg 8 Gm Inhaler) 2 puff INHALE RQ4H PRN PRN Reason: Wheezing Apixaban (Apixaban 2.5 Mg Tablet) 2.5 mg PO BID [facility] Last Admin: 11/17/21 19:53 Dose: 2.5 mg Documented by: Benzonatate (Benzonatate 100 Mg Capsule) 100 mg PO TID PRN PRN Reason: Cough Last Admin: 11/17/21 06:16 Dose: 100 mg Documented by: Benzonatate (Benzonatate 100 Mg Capsule) 100 mg PO TID [facility] Last Admin: 11/17/21 19:55 Dose: 100 mg Documented by: Clonazepam (Clonazepam 1 Mg Tablet) 1 mg PO BEDTIME [facility] Last Admin: 11/17/21 19:54 Dose: 1 mg Documented by: Clozapine (Clozapine 100 Mg Tablet) 200 mg PO BEDTIME [facility] Last Admin: 11/17/21 19:53 Dose: 200 mg Documented by: Dronedarone (Dronedarone Hcl 400 Mg Tablet) 400 mg PO BID [facility] Last Admin: 11/17/21 19:55 Dose: 400 mg Documented by: Hydrocortisone (Hydrocortisone 1 % Cream 28.35 Gm Tube) 1 appl TOPICAL BID PRN PRN Reason: skin irritation Hydroxyzine HCl (Hydroxyzine Hcl 50 Mg Tablet) 50 mg PO BEDTIME PRN PRN Reason: for insomnia Last Admin: 11/14/21 20:30 Dose: 50 mg Documented by: Meropenem 500 mg/ Sodium (Chloride) 50 mls @ 100 mls/hr IV DAILY@1645 [facility] Last Infusion: 11/17/21 20:41 Dose: Infused Documented by: Lamotrigine (Lamotrigine 100 Mg Tablet) 150 mg PO BEDTIME [facility] Last Admin: 11/17/21 19:51 Dose: 150 mg Documented by: Levothyroxine Sodium (Levothyroxine Sodium 150 Mcg Tablet) 150 mcg PO DAILY@0630 [facility] Last Admin: 11/17/21 05:58 Dose: 150 mcg Documented by: Magnesium Hydroxide (Milk Of Magnesia 30 Ml Oral.Susp) 30 ml PO DAILY PRN PRN Reason: Constipation Melatonin (Melatonin 3 Mg Tablet) 6 mg PO BEDTIME PRN PRN Reason: Insomnia Last Admin: 11/16/21 20:23 Dose: 6 mg Documented by: Melatonin (Melatonin 3 Mg Tablet) 6 mg PO DAILY PRN PRN Reason: Insomnia Last Admin: 11/14/21 12:05 Dose: 6 mg Documented by: Midodrine (Midodrine Hcl 5 Mg Tablet) 5 mg PO BID [facility] Last Admin: 11/17/21 19:54 Dose: 5 mg Documented by: Non-Formulary Medication (Umeclidinium-Vilanterol [Anoro Ellipta]) 1 puff INHAL E DAILY [facility] Sevelamer Carbonate (Sevelamer Carbonate Tablet 800 Mg Tablet) 1,600 mg PO T IDWM [facility] Last Admin: 11/17/21 19:55 Dose: 1,600 mg Documented by: Sodium Chloride (0.9 % Sodium Chloride Flush 3 Ml Syringe) 3 ml IVFLUSH QSHIFT [facility] Last Admin: 11/17/21 19:55 Dose: 3 ml Documented by: Tamoxifen Citrate (Tamoxifen Citrate 10 Mg Tablet) 20 mg PO DAILY@1400 [facility] Last Admin: 11/17/21 14:34 Dose: 20 mg Documented by: Trazodone HCl (Trazodone Hcl 50 Mg Tablet) 50 mg PO BEDTIME PRN PRN Reason: Insomnia Allergies Allergies Allergy/AdvReac Type Severity Reaction Status Date / Time adhesive tape Allergy Intermediate Blister Verified 11/13/21 21:04 aspirin Allergy Intermediate RASH Verified 11/13/21 21:04 benztropine Allergy Intermediate RASH Verified 11/13/21 21:04 NSAIDS (Non-Steroidal Allergy Intermediate RASH Verified 11/13/21 21:04 Anti-Inflamma ziprasidone Allergy Intermediate UNKNOWN Verified 11/13/21 21:04 doxycycline AdvReac Vomiting Verified 11/13/21 21:04 oxycodone AdvReac Anaphylaxis Verified 11/13/21 21:04 Assessment & Plan Assessment & Plan (1) Bipolar 1 disorder: Status: Acute Code(s): F31.9 - Bipolar disorder, unspecified Plan ?elderly female with a long history of bipolar disorder and other several medical comorbidities admitted to Psychiatry for exacerbation of savita since she recently had and has survey bustillos of her chronic renal failure and medications needed to be lowered.? At this moment she presents with savita unable to take care of herself.? Plan 1. Restart Clozaril and start slow titration up to therapeutic level.? 2. Continue other medications I spent ___25___ minutes with the patient and/or on the patient floor today, greater than?50% of which was spent counseling/coordinating care. Reason for contiued inpatient stay Substantial Risk for: inability to function and rapid decompensation
[2021-11-18] MEDS: Levothyroxine Sodium 150 MCG TABLET PO (05:08)
[2021-11-18 09:11] VITALS: BP 112/55; PULSE 84; RESP 15; TEMP 36.5; O2SAT 92
[2021-11-18] MEDS: Apixaban 2.5 MG TABLET PO ×2 (09:12→20:40)
[2021-11-18] MEDS: Sevelamer Carbonate Tablet 800 MG TABLET 1600 MG PO ×3 (09:12→17:22)
[2021-11-18] MEDS: Benzonatate 100 MG CAPSULE PO ×3 (09:13→20:39)
[2021-11-18] MEDS: Dronedarone HCl 400 MG TABLET PO ×2 (09:13→20:40)
[2021-11-18] MEDS: Midodrine HCl 5 MG TABLET PO ×2 (09:13→20:40)
[2021-11-18 13:25] LABS: Adenovirus PCR Not Detected (Not Detect.); Bordetella parapertussis PCR Not Detected (Not Detect.); Bordetella pertussis PCR Not Detected (Not Detect.); Chlamydia pneumoniae PCR Not Detected (Not Detect.); Coronavirus 229E PCR Not Detected (Not Detect.)
[2021-11-18] MEDS: Tamoxifen Citrate 10 MG TABLET 20 MG PO (13:25)
[2021-11-18 13:26] LABS: Coronavirus HKU1 PCR Not Detected (Not Detect.); Coronavirus NL63 PCR Not Detected (Not Detect.); Coronavirus OC43 PCR Not Detected (Not Detect.); Human metapneumovirus PCR Not Detected (Not Detect.); Influenza A PCR Not Detected (Not Detect.); Influenza B PCR Not Detected (Not Detect.); Mycoplasma pneumoniae PCR Not Detected (Not Detect.); Parainfluenza 1 PCR Not Detected (Not Detect.); Parainfluenza 2 PCR Not Detected (Not Detect.); Parainfluenza 3 PCR Not Detected (Not Detect.); Parainfluenza 4 PCR Not Detected (Not Detect.); RSV PCR Not Detected (Not Detect.); Rhino/Enterovirus PCR Not Detected (Not Detect.); SARS-CoV-2 PCR Not Detected (Not Detect.)
--- NOTE | 2021-11-18 14:56 | HO.PSYCHPN ---
Subjective Subjective Date of Service: 11/18/21 Reason For Visit: Savita Interim History: pt requests discharge and for MD to call harvinder. no other complaints or requests. per staff, isolative to room. diarrhea x 2. incontinent of stool, hands in briefs. no SI/HI. +AH. slept through the night. took meds this morning. Mental Status Exam Mental Status Exam Patient Appearance: Appropriate Patient Orientation: Person and Situation Level of Consciousness: Awake and Restless Patient Behavior: Guarded and Suspicious Mood Description: Withdrawn and Depressed Affect Description: Labile Ability to Follow Directions: Fair Speech Pattern: Rambling and Soft-Spoken Thought Process: Illogical and Slowed Thinking Thought Content: positive for [place], positive for Circumstantial and positive for Poverty of Content Judgement: Poor Diagnostics Vital Signs (24Hr): Vital Signs - 24 hr 11/17/21 20:51 11/18/21 09:11 Temperature 98.5 F 97.7 F Pulse Rate 90 84 Respiratory Rate 18 15 Blood Pressure 93/52 L 112/55 L Pulse Oximetry 96 92 BMI result Body Mass Index 21.2 Labs Results: 11/16/21 06:10 11/17/21 06:56 Labs: Laboratory Results - last 48 hr 11/17/21 11/18/21 06:56 06:12 Sodium 137 Potassium 5.6 H Chloride 102 Carbon Dioxide 25 Anion Gap 16 BUN 25 H Creatinine 4.51 H* Estim Creat Clear Calc 9.0 Estimated GFR 10 Fasting Glucose 83 Calcium 10.9 H Total Bilirubin 0.3 AST 10 ALT < 6 Alkaline Phosphatase 112 Total Protein 6.3 L Albumin 3.3 L Triglycerides 117 Cholesterol 93 LDL Cholesterol, Calc 35 HDL Cholesterol 35 Respiratory Panel Saha See Note Adenovirus (Rapid PCR) Not Detected B.pert (TEM-PCR) Not Detected B.parapertussis DNA PCR Not Detected C. pneumoniae DNA (PCR) Not Detected Coronavirus OC43 (PCR) Not Detected Coronavirus HKU1 (PCR) Not Detected Coronavirus 229E (PCR) Not Detected Coronavirus NL63 (PCR) Not Detected Human Metapneumovir PCR Not Detected Influenza A (RT-PCR) Not Detected Influenza B (RT-PCR) Not Detected M. pneumoniae (PCR) Not Detected Parainfluenza 1 (PCR) Not Detected Parainfluenza 2 (PCR) Not Detected Parainfluenza 3 (PCR) Not Detected Parainfluenza 4 (PCR) Not Detected RSV (PCR) Not Detected Entero/Rhino (PCR) Not Detected SARS-CoV-2 RNA (RT-PCR) Not Detected Medications Medications Current Medications Acetaminophen (Acetaminophen 325 Mg Tablet) 650 mg PO Q6H PRN PRN Reason: Pain, Mild (Pain Scale 1-3) Last Admin: 11/17/21 06:15 Dose: 650 mg Documented by: Acetaminophen (Acetaminophen 325 Mg Tablet) 650 mg PO BID PRN PRN Reason: Pain (Scale Score 1-3) Al Hydroxide/Mg Hydroxide (Magnesium Hydrox/Alum Hydrox 30 Ml Oral.Susp) 30 ml PO Q6H PRN PRN Reason: Heartburn/Nausea Albuterol Sulfate (Albuterol Sulfate 90 Mcg 8 Gm Inhaler) 2 puff INHALE RQ4H PRN PRN Reason: Wheezing Apixaban (Apixaban 2.5 Mg Tablet) 2.5 mg PO BID [facility] Last Admin: 11/18/21 09:12 Dose: 2.5 mg Documented by: Benzonatate (Benzonatate 100 Mg Capsule) 100 mg PO TID PRN PRN Reason: Cough Last Admin: 11/17/21 06:16 Dose: 100 mg Documented by: Benzonatate (Benzonatate 100 Mg Capsule) 100 mg PO TID [facility] Last Admin: 11/18/21 09:13 Dose: 100 mg Documented by: Clonazepam (Clonazepam 1 Mg Tablet) 1 mg PO BEDTIME [facility] Last Admin: 11/17/21 19:54 Dose: 1 mg Documented by: Clozapine (Clozapine 100 Mg Tablet) 200 mg PO BEDTIME [facility] Last Admin: 11/17/21 19:53 Dose: 200 mg Documented by: Dronedarone (Dronedarone Hcl 400 Mg Tablet) 400 mg PO BID [facility] Last Admin: 11/18/21 09:13 Dose: 400 mg Documented by: Hydrocortisone (Hydrocortisone 1 % Cream 28.35 Gm Tube) 1 appl TOPICAL BID PRN PRN Reason: skin irritation Hydroxyzine HCl (Hydroxyzine Hcl 50 Mg Tablet) 50 mg PO BEDTIME PRN PRN Reason: for insomnia Last Admin: 11/14/21 20:30 Dose: 50 mg Documented by: Meropenem 500 mg/ Sodium (Chloride) 50 mls @ 100 mls/hr IV DAILY@1645 [facility] Last Infusion: 11/17/21 20:41 Dose: Infused Documented by: Lamotrigine (Lamotrigine 100 Mg Tablet) 150 mg PO BEDTIME [facility] Last Admin: 11/17/21 19:51 Dose: 150 mg Documented by: Levothyroxine Sodium (Levothyroxine Sodium 150 Mcg Tablet) 150 mcg PO DAILY@0630 [facility] Last Admin: 11/18/21 05:08 Dose: 150 mcg Documented by: Magnesium Hydroxide (Milk Of Magnesia 30 Ml Oral.Susp) 30 ml PO DAILY PRN PRN Reason: Constipation Melatonin (Melatonin 3 Mg Tablet) 6 mg PO BEDTIME PRN PRN Reason: Insomnia Last Admin: 11/16/21 20:23 Dose: 6 mg Documented by: Melatonin (Melatonin 3 Mg Tablet) 6 mg PO DAILY PRN PRN Reason: Insomnia Last Admin: 11/14/21 12:05 Dose: 6 mg Documented by: Midodrine (Midodrine Hcl 5 Mg Tablet) 5 mg PO BID [facility] Last Admin: 11/18/21 09:13 Dose: 5 mg Documented by: Non-Formulary Medication (Umeclidinium-Vilanterol [Anoro Ellipta]) 1 puff INHALE DAILY [facility] Sevelamer Carbonate (Sevelamer Carbonate Tablet 800 Mg Tablet) 1,600 mg PO TIDWM [facility] Last Admin: 11/18/21 13:25 Dose: 1,600 mg Documented by: Sodium Chloride (0.9 % Sodium Chloride Flush 3 Ml Syringe) 3 ml IVFLUSH QSHIFT [facility] Last Admin: 11/18/21 12:46 Dose: Not Given Documented by: Tamoxifen Citrate (Tamoxifen Citrate 10 Mg Tablet) 20 mg PO DAILY@1400 [facility] Last Admin: 11/18/21 13:25 Dose: 20 mg Documented by: Trazodone HCl (Trazodone Hcl 50 Mg Tablet) 50 mg PO BEDTIME PRN PRN Reason: Insomnia Allergies Allergies Allergy/AdvReac Type Severity Reaction Status Date / Time adhesive tape Allergy Intermediate Blister Verified 11/13/21 21:04 aspirin Allergy Intermediate RASH Verified 11/13/21 21:04 benztropine Allergy Intermediate RASH Verified 11/13/21 21:04 NSAIDS (Non-Steroidal Allergy Intermediate RASH Verified 11/13/21 21:04 Anti-Inflamma ziprasidone Allergy Intermediate UNKNOWN Verified 11/13/21 21:04 doxycycline AdvReac Vomiting Verified 11/13/21 21:04 oxycodone AdvReac Anaphylaxis Verified 11/13/21 21:04 Assessment & Plan Assessment & Plan (1) Bipolar 1 disorder: Status: Acute Code(s): F31.9 - Bipolar disorder, unspecified Plan ?elderly female with a long history of bipolar disorder and other several medical comorbidities admitted to Psychiatry for exacerbation of savita since she recently had and has survey bustillos of her chronic renal failure and medications needed to be lowered.? At this moment she presents with savita unable to take care of herself.? Plan 1. Restart Clozaril and start slow titration up to therapeutic level.? 2. Continue other medications I spent ___15___ minutes with the patient and/or on the patient floor today, greater than?50% of which was spent counseling/coordinating care. Reason for contiued inpatient stay Substantial Risk for: inability to function and rapid decompensation
--- NOTE | 2021-11-18 16:37 | PC.NURSE ---
RN observed scant amount of blood in brief when changing pt. Pt declined further assessment. doctor Gonzales notified.
[2021-11-18] MEDS: 0.9 % Sodium Chloride Flush 3 ML SYRINGE IVFLUSH (17:13)
[2021-11-18 20:12] VITALS: BP 102/55; PULSE 85; RESP 17; TEMP 36.9; O2SAT 96
[2021-11-18] MEDS: lamoTRIgine 100 MG TABLET 150 MG PO (20:40)
[2021-11-18] MEDS: cloZAPine 100 MG TABLET 200 MG PO (20:40)
[2021-11-18] MEDS: clonazePAM 1 MG TABLET PO (20:40)
--- NOTE | 2021-11-18 21:21 | PC.NURSE ---
Buttocks appeared reddened with an open area on the right buttocks'. Patient cleaned and changed after bowel incontinence. 2 episodes of loose stool. Barrier cream applied.
[2021-11-19] MEDS: 0.9 % Sodium Chloride Flush 3 ML SYRINGE IVFLUSH ×3 (00:43→18:28)
[2021-11-19 07:50] VITALS: BP 108/55; PULSE 107; RESP 16; TEMP 36.9; O2SAT 94
[2021-11-19] MEDS: Midodrine HCl 5 MG TABLET PO ×2 (09:37→21:07)
[2021-11-19] MEDS: Dronedarone HCl 400 MG TABLET PO ×2 (09:37→21:05)
[2021-11-19] MEDS: Benzonatate 100 MG CAPSULE PO ×3 (09:37→21:05)
[2021-11-19] MEDS: Apixaban 2.5 MG TABLET PO ×2 (09:37→21:27)
[2021-11-19] MEDS: Sevelamer Carbonate Tablet 800 MG TABLET 1600 MG PO ×3 (09:37→18:28)
[2021-11-19] MEDS: Levothyroxine Sodium 150 MCG TABLET PO (09:38)
[2021-11-19] MEDS: Magnesium Hydrox/Alum Hydrox 30 ML ORAL.SUSP PO (15:16)
[2021-11-19] MEDS: Acetaminophen 325 MG TABLET 650 MG PO ×2 (16:05→23:25)
[2021-11-19 18:00] VITALS: TEMP 36.2
[2021-11-19] MEDS: Tamoxifen Citrate 10 MG TABLET 20 MG PO (18:31)
[2021-11-19] MEDS: Miconazole 2 % Extra Thick Cr 56.7 Gm Tube 1 APPL TOPICAL ×2 (18:49→21:25)
[2021-11-19] MEDS: Salmeterol Xinafoate 50 MCG BLST.W.DEV 1 PUFF INHALE (21:02)
[2021-11-19] MEDS: Melatonin 3 MG TABLET 6 MG PO (21:04)
[2021-11-19] MEDS: lamoTRIgine 100 MG TABLET 150 MG PO (21:05)
[2021-11-19] MEDS: cloZAPine 100 MG TABLET 200 MG PO (21:07)
[2021-11-19] MEDS: traZODone HCL 50 MG TABLET PO (23:13)
[2021-11-19 23:40] VITALS: BP 78/46; PULSE 100; RESP 16; TEMP 36.1; O2SAT 96
[2021-11-20] MEDS: 0.9 % Sodium Chloride Flush 3 ML SYRINGE IVFLUSH ×3 (00:44→16:23)
[2021-11-20] MEDS: Lactated Ringers 1,000 ML 999 ML IV ×2 (00:55→03:03)
[2021-11-20 01:39] VITALS: BP 83/46; PULSE 105; RESP 16; TEMP 36.1; O2SAT 90
[2021-11-20] MEDS: Midodrine HCl 5 MG TABLET PO ×4 (04:01→20:00)
--- NOTE | 2021-11-20 04:16 | PC.NURSE ---
PT VS taken at 2345 T 97, O2 96%/RA, P100, BP 78/46, R 18 MD Cortes, MD Parisi, and Nurse mold shop supervisor, Alina notified. New order to give LR 1000mg bolus at 999ml/hr, at 100. PT tolerated well, PICC patent, no s/s of infection or infultration. At 1:30 VS T 97, O2 90 %/RA, P105, BP 83/46. R 18. Hospitalist, and nurse mold shop supervisor notified. Labs ordered and PT refused and combative. Labs ordered were Troponin, lactic acid, CBC with Diff. PT VS at 0230 BP 78/47, P 109, T 97, O2 94%/RA, hospitalist and nurse mold shop supervisor notified, new order for LR 1000 ml at 200, and midodrine 5mg po one time. VS at 0430, BP 94/60, T 97, P94, O2 91%/RA R 17. Hospitalist and nurse mold shop supervisor notified of improvement. PT repositioned every 2 hours for comfort. PT has redness to grain area, refused nystatin. PT has blanching redness to saccrum and coccyx, barrier cream applied.
[2021-11-20 04:30] VITALS: BP 94/60; PULSE 94; RESP 17; TEMP 36.1; O2SAT 91
--- NOTE | 2021-11-20 04:49 | PC.NURSE ---
PT VS taken at 2345 T 97, O2 96%/RA, P100, BP 78/46, R 18 MD Cortes, MD Parisi, and Nurse lead section supervisor, Alina notified. New order to give LR 1000mg bolus at 999ml/hr, at 100. PT tolerated well, PICC patent, no s/s of infection or infultration. At 1:30 VS T 97, O2 90 %/RA, P105, BP 83/46. R 18. Hospitalist, and nurse lead section supervisor notified. Labs ordered and PT refused and combative. Labs ordered were Troponin, lactic acid, CBC with Diff. PT VS at 0230 BP 78/47, P 109, T 97, O2 94%/RA, hospitalist and nurse lead section supervisor notified, new order for LR 1000 ml at 200, and midodrine 5mg po one time. VS at 0430, BP 94/60, T 97, P94, O2 91%/RA R 17. Hospitalist and nurse lead section supervisor notified of improvement. PT repositioned every 2 hours for comfort. PT has redness to grain area, refused nystatin. PT has non blanching redness to saccrum and coccyx with open area, barrier cream applied.
--- NOTE | 2021-11-20 05:30 | PM.EVENT ---
Event Note Date of Service: 11/20/21 Event Note: pt became hypotensive overnight with no symptoms. she was sleeping. received 2 units of LR bolus and one dose of midodrine with improvement on symptoms labs ordered and pending but i do not anticipate an infection likely 2/2 dialysis received earlier in the day
[2021-11-20 06:03] VITALS: BP 96/62; PULSE 96; RESP 16; TEMP 36.1; O2SAT 94
[2021-11-20 07:12] LABS: MANUAL DIFF FLAG NO
[2021-11-20 07:15] LABS: Basophils Percent Auto 0.6 % (0-2); Eosinophils Absolute Auto 0.2 X10*3/uL (0.0-0.4); Eosinophils Percent Auto 3.3 % (0-4); Hemoglobin 8.6 g/dl (12.0-16.0); Imm Gran Abs Auto 0.04 X10*3/uL (0.00-0.03); Imm Gran Pct Auto 0.7 % (0.0-0.4); Lymphocytes Absolute Auto 0.7 X10*3/uL (1.2-4.9); Lymphocytes Percent Auto 12.5 % (20-40); Mean Corpuscular HGB Conc 30.7 g/dl (31.0-35.0); Mean Corpuscular Hemoglobin 29.8 pg (27.0-33.0); Mean Corpuscular Volume 96.9 fL (80.0-98.0); Mean Platelet Volume 9.3 fL (9.4-12.3); Monocytes Absolute Auto 0.7 X10*3/uL (0.1-1.2); Monocytes Percent Auto 13.6 % (2-11); Neutrophils Absolute Auto 3.8 x10*3/uL (2.0-8.3); Neutrophils Percent Auto 69.3 % (45-73); Platelet Count 166 X10*3/uL (160-400); Red Blood Count 2.89 X10*6/uL (4.20-5.50); Red Cell Distribution Width 15.7 % (11.0-16.0); White Blood Count 5.4 X10*3/uL (4.8-10.8)
[2021-11-20 07:27] LABS: Lactic Acid 0.8 mmol/L (0.5-2.0)
[2021-11-20 07:44] LABS: Troponin-I High Sensitivity 167.5 ng/L (<3.5-17.0)
[2021-11-20] MEDS: Salmeterol Xinafoate 50 MCG BLST.W.DEV 1 PUFF INHALE ×2 (10:01→21:22)
[2021-11-20] MEDS: Miconazole 2 % Extra Thick Cr 56.7 Gm Tube 1 APPL TOPICAL ×2 (10:02→22:35)
[2021-11-20] MEDS: Apixaban 2.5 MG TABLET PO ×2 (10:03→20:01)
[2021-11-20] MEDS: Dronedarone HCl 400 MG TABLET PO ×2 (10:03→20:00)
[2021-11-20] MEDS: Sevelamer Carbonate Tablet 800 MG TABLET 1600 MG PO ×3 (10:04→17:18)
[2021-11-20] MEDS: Benzonatate 100 MG CAPSULE PO ×3 (10:04→20:00)
[2021-11-20 10:31] LABS: Troponin-I High Sensitivity 206.1 ng/L (<3.5-17.0)
--- NOTE | 2021-11-20 10:41 | PM.EVENT ---
Event Note Date of Service: 11/20/21 Event Note: troponin mildly elevated, flat, no signs of ACS, will check echo
[2021-11-20 11:21] VITALS: BP 90/54; PULSE 90; RESP 16; TEMP 37; O2SAT 93
--- NOTE | 2021-11-20 15:27 | PC.NURSE ---
Skin assessment completed today. Patient has a stage 2 pressure injury to left buttock and fungal rash to bilateral buttocks and groin. Buttocks cleansed with wound cleanser then Woundres' gel applied to pressure ulcer covered with foam dressing. 2% Miconazole cream applied to fungal rash areas.
[2021-11-20] MEDS: Tamoxifen Citrate 10 MG TABLET 20 MG PO (15:50)
[2021-11-20 19:57] VITALS: BP 95/52; PULSE 84; RESP 18; TEMP 36.6; O2SAT 96
[2021-11-20] MEDS: cloZAPine 100 MG TABLET 200 MG PO (20:00)
[2021-11-20] MEDS: Loperamide HCl 2 MG CAPSULE PO (20:00)
[2021-11-20] MEDS: Melatonin 3 MG TABLET 6 MG PO (20:01)
[2021-11-20] MEDS: lamoTRIgine 100 MG TABLET 150 MG PO (20:02)
--- NOTE | 2021-11-20 20:28 | HO.PSYCHPN ---
Subjective Subjective Date of Service: 11/20/21 Reason For Visit: Savita Subjective Notes: Conditional Voluntary Guardianship: No Medical Problems Affecting Mental Status: Yes Interim History: pt required bolus of fluids at hs case reviewed dr mcdonnell and nephrology mitodrine inc tid c/o diarrhea Medication Compliance: Yes Side effects from medications: Yes Attending Groups: No Review of Systems Acute medical concerns: Yes on antibiotic has skin breakdown needs barrier wound care from diarrhea Medical Review of Systems: unchanged Mental Status Exam Mental Status Exam Narrative: seen sitting in wheelchair Patient Appearance: Disheveled Patient Orientation: Person Level of Consciousness: Awake Patient Behavior: Appropriate Mood Description: Constricted, Anxious, Apprehensive and Expansive Affect Description: Constricted, Depressed, Labile and Apprehensive Ability to Follow Directions: Fair Hallucinations: Auditory Delusions: Grandiose Depressive Symptoms: Increased Anxiety and Increased Irritability Judgement: Fair Diagnostics Vital Signs (24Hr): Vital Signs - 24 hr 11/19/21 23:40 11/20/21 01:39 11/20/21 04:30 Temperature 97 F 97 F 97 F Pulse Rate 100 105 H 94 Respiratory Rate 16 16 17 Blood Pressure 78/46 L 83/46 L 94/60 Pulse Oximetry 96 90 L 91 L 11/20/21 06:03 11/20/21 11:21 11/20/21 19:57 Temperature 97 F 98.6 F 97.9 F Pulse Rate 96 90 84 Respiratory Rate 16 16 18 Blood Pressure 96/62 90/54 L 95/52 L Pulse Oximetry 94 93 96 BMI result Body Mass Index 21.2 Labs Results: 11/20/21 07:09 11/17/21 06:56 Labs: Laboratory Results - last 48 hr 11/17/21 11/20/21 11/20/21 11:41 07:09 07:09 WBC 5.4 RBC 2.89 L Hgb 8.6 L D Hct 28.0 L MCV 96.9 MCH 29.8 MCHC 30.7 L RDW 15.7 Plt Count 166 D MPV 9.3 L Immature Gran % (Auto) 0.7 H Neut % (Auto) 69.3 Lymph % (Auto) 12.5 L Woodruff % (Auto) 13.6 H Eos % (Auto) 3.3 Baso % (Auto) 0.6 Lymph # (Auto) 0.7 L [place]ruff # (Auto) 0.7 Eos # (Auto) 0.2 Baso # (Auto) 0.0 Abs Immat Gran (auto) 0.04 H Absolute Neuts (auto) 3.8 Absolute Nucleated RBC 0.000 Nucleated RBC % (auto) 0.0 Lactic Acid 0.8 Troponin I High Sens Ref Lab Test Result SEE NOTE 11/20/21 11/20/21 07:09 09:59 WBC RBC Hgb Hct MCV MCH MCHC RDW Plt Count MPV Immature Gran % (Auto) Neut % (Auto) Lymph % (Auto) Woodruff % (Auto) Eos % (Auto) Baso % (Auto) Lymph # (Auto) Woodruff # (Auto) Eos # (Auto) Baso # (Auto) Abs Immat Gran (auto) Absolute Neuts (auto) Absolute Nucleated RBC Nucleated RBC % (auto) Lactic Acid Troponin I High Sens 167.5 H* D 206.1 H* Ref Lab Test Result Medications Medications Current Medications Acetaminophen (Acetaminophen 325 Mg Tablet) 650 mg PO Q6H PRN PRN Reason: Pain, Mild (Pain Scale 1-3) Last Admin: 11/19/21 23:25 Dose: 650 mg Documented by: Acetaminophen (Acetaminophen 325 Mg Tablet) 650 mg PO BID PRN PRN Reason: Pain (Scale Score 1-3) Al Hydroxide/Mg Hydroxide (Magnesium Hydrox/Alum Hydrox 30 Ml Oral.Susp) 30 ml PO Q6H PRN PRN Reason: Heartburn/Nausea Last Admin: 11/19/21 15:16 Dose: 30 ml Documented by: Albuterol Sulfate (Albuterol Sulfate 90 Mcg 8 Gm Inhaler) 2 puff INHALE RQ4H PRN PRN Reason: Wheezing Apixaban (Apixaban 2.5 Mg Tablet) 2.5 mg PO BID [facility] Last Admin: 11/20/21 20:01 Dose: 2.5 mg Documented by: Benzonatate (Benzonatate 100 Mg Capsule) 100 mg PO TID PRN PRN Reason: Cough Last Admin: 11/17/21 06:16 Dose: 100 mg Documented by: Benzonatate (Benzonatate 100 Mg Capsule) 100 mg PO TID [facility] Last Admin: 11/20/21 20:00 Dose: 100 mg Documented by: Clozapine (Clozapine 100 Mg Tablet) 200 mg PO BEDTIME [facility] Last Admin: 11/20/21 20:00 Dose: 200 mg Documented by: Dronedarone (Dronedarone Hcl 400 Mg Tablet) 400 mg PO BID [facility] Last Admin: 11/20/21 20:00 Dose: 400 mg Documented by: Hydrocortisone (Hydrocortisone 1 % Cream 28.35 Gm Tube) 1 appl TOPICAL BID PRN PRN Reason: skin irritation Hydroxyzine HCl (Hydroxyzine Hcl 50 Mg Tablet) 50 mg PO BEDTIME PRN PRN Reason: for insomnia Last Admin: 11/14/21 20:30 Dose: 50 mg Documented by: Meropenem 500 mg/ Sodium (Chloride) 50 mls @ 100 mls/hr IV DAILY@1645 [facility] Last Infusion: 11/20/21 17:14 Dose: Infused Documented by: Lamotrigine (Lamotrigine 100 Mg Tablet) 150 mg PO BEDTIME [facility] Last Admin: 11/20/21 20:02 Dose: 150 mg Documented by: Levothyroxine Sodium (Levothyroxine Sodium 150 Mcg Tablet) 150 mcg PO DAILY@0630 [facility] Last Admin: 11/20/21 10:06 Dose: Not Given Documented by: Loperamide HCl (Loperamide Hcl 2 Mg Capsule) 2 mg PO Q4H PRN PRN Reason: Diarrhea Last Admin: 11/20/21 20:00 Dose: 2 mg Documented by: Magnesium Hydroxide (Milk Of Magnesia 30 Ml Oral.Susp) 30 ml PO DAILY PRN PRN Reason: Constipation Melatonin (Melatonin 3 Mg Tablet) 6 mg PO BEDTIME PRN PRN Reason: Insomnia Last Admin: 11/20/21 20:01 Dose: 6 mg Documented by: Melatonin (Melatonin 3 Mg Tablet) 6 mg PO DAILY PRN PRN Reason: Insomnia Last Admin: 11/14/21 12:05 Dose: 6 mg Documented by: Miconazole Nitrate (Miconazole 2 % Extra Thick Cr 56.7 Gm Tube) 1 appl TOPICAL BID [facility]; Protocol Last Admin: 11/20/21 10:02 Dose: 1 appl Documented by: Midodrine (Midodrine Hcl 5 Mg Tablet) 5 mg PO TID [facility] Last Admin: 11/20/21 20:00 Dose: 5 mg Documented by: Salmeterol Xinafoate (Salmeterol Xinafoate 50 Mcg Blst.W.Dev) 1 puff INHALE RBID [facility] Last Admin: 11/20/21 10:01 Dose: 1 puff Documented by: Sevelamer Carbonate (Sevelamer Carbonate Tablet 800 Mg Tablet) 1,600 mg PO TIDWM [facility] Last Admin: 11/20/21 17:18 Dose: 1,600 mg Documented by: Sodium Chloride (0.9 % Sodium Chloride Flush 3 Ml Syringe) 3 ml IVFLUSH QSHIFT [facility] Last Admin: 11/20/21 16:23 Dose: 3 ml Documented by: Tamoxifen Citrate (Tamoxifen Citrate 10 Mg Tablet) 20 mg PO DAILY@1400 [facility] Last Admin: 11/20/21 15:50 Dose: 20 mg Documented by: Tiotropium [place] (Tiotropium [place] 18 Mcg Cap.W.Dev) 1 puff INHALE RDAILY [facility] Last Admin: 11/20/21 09:58 Dose: 1 puff Documented by: Trazodone HCl (Trazodone Hcl 50 Mg Tablet) 50 mg PO BEDTIME PRN PRN Reason: Insomnia Last Admin: 11/19/21 23:13 Dose: 50 mg Documented by: Allergies Allergies Allergy/AdvReac Type Severity Reaction Status Date / Time adhesive tape Allergy Intermediate Blister Verified 11/13/21 21:04 aspirin Allergy Intermediate RASH Verified 11/13/21 21:04 benztropine Allergy Intermediate RASH Verified 11/13/21 21:04 NSAIDS (Non-Steroidal Allergy Intermediate RASH Verified 11/13/21 21:04 Anti-Inflamma ziprasidone Allergy Intermediate UNKNOWN Verified 11/13/21 21:04 doxycycline AdvReac Vomiting Verified 11/13/21 21:04 oxycodone AdvReac Anaphylaxis Verified 11/13/21 21:04 Assessment & Plan Assessment & Plan (1) Bipolar 1 disorder: Status: Acute Code(s): F31.9 - Bipolar disorder, unspecified Plan ?elderly female with a long history of bipolar disorder and other several medical comorbidities admitted to Psychiatry for exacerbation of savita since she recently had and has survey bustillos of her chronic renal failure and medications needed to be lowered.? At this moment she presents with savita unable to take care of herself.? Plan 1. Restart Clozaril and start slow titration up to therapeutic level.? 2. Continue other medications 11/20/21 Inc mitodrine to maintain bp monitor resonse to clozapine and bp hold if less than sys 90 imodium for diarrhea I spent minutes with the patient and/or on the patient floor today, greater than?50% of which was spent counseling/coordinating care. Patient educated on: medication risk/benefits and medical condition Informed Consent: further education needed Reason for contiued inpatient stay Substantial Risk for: inability to function, rapid decompensation and med/psych decompensation
[2021-11-20] MEDS: traZODone HCL 50 MG TABLET PO (21:22)
[2021-11-21] MEDS: 0.9 % Sodium Chloride Flush 3 ML SYRINGE IVFLUSH ×4 (01:06→19:46)
[2021-11-21] MEDS: Levothyroxine Sodium 150 MCG TABLET PO (05:14)
[2021-11-21] MEDS: Loperamide HCl 2 MG CAPSULE PO ×3 (05:14→19:48)
[2021-11-21] MEDS: Miconazole 2 % Extra Thick Cr 56.7 Gm Tube 1 APPL TOPICAL ×2 (05:19→21:05)
--- NOTE | 2021-11-21 07:30 | CA_ITS ---
Transthoracic Echocardiogram Patient (Last, First, Middle): Romeo Barrettkim, Gender: Female Date of : 1945 Age: 76 Procedure Date: 11/21/2021 Procedure Type: Transthoracic Echocardiogram Location: [facility] Height: 160.02 cm Weight: 54.43 kg BSA: 1.56 m2 Heart Rate: bpm BP: 95 / 52 mmHg Wealth Management Manager: SARITHA Referring MD: Aguila Ramos MD Malted Milk Mixer: Richi Ta MD Symptoms: hypotension, elevated troponin Study Quality: Fair ECG Rhythm: Sinus Conclusions: - 1. Normal LV systolic function with impaired relaxation filling pattern 2. Severe aortic stenosis 3. No gross pericardial effusion Findings Left Ventricle Normal left ventricular size, thickness, and systolic function. The visually estimated ejection fraction is between 60-65%. Spectral Doppler is indicative of an impaired relaxation filling pattern. E/E prime ratio is between 8 and 15 consistent with indeterminate filling pressures. There is mild septal asymmetric hypertrophy. Right Ventricle Normal right ventricular cavity size and systolic function. Atria The left atrium is likely dilated. There is no evidence of interatrial shunt. The right atrium is normal in size. Aortic Valve There is moderate calcification of the aortic valve. There is moderate thickening of the aortic valve. The peak aortic gradient is 79 mmHg.The mean gradient is 46 mmHg. The aortic valve area is 0.80 cm2. There is mild aortic valve regurgitation. Mitral Valve There is moderate anterior and severe posterior mitral leaflet thickening. There is moderate mitral annular calcification. There is trace mitral valve regurgitation. There is no mitral valve stenosis. Pulmonic Valve The pulmonic valve was not well visualized. Tricuspid Valve Likely normal tricuspid valve structure and function. Tricuspid regurgitation envelope is inadequate for calculation of right ventricular systolic pressure. Great Vessels All visible segments of the aorta are normal in size. The pulmonary artery was not well visualized. Venous The inferior vena cava is normal in size and collapses greater than 50% with inspiration. Pericardium/Pleural There is no evidence of pericardial effusion. Prior Study Comparison Changes noted compared to prior study dated: 05/11/2020. aortic stenosis is severe Measurements 2D Linear Measurements IVSd: 1.27 0.6-0.9/0.6-1.0 cm LVIDd: 2.49 3.9-5.3/4.2-5.9 cm LVIDd Index: 1.60 2.4-3.2/2.2-3.1 cm/m2 LVIDs: 1.56 2.0-3.6 cm LVPWd: 0.76 0.7-1.1 cm LA Diam: 3.50 2.7-3.8/3.0-4.0 cm LAIDs Index: 2.24 1.5-2.3 cm/m2 LV Mass: 80.11 67-162/88-224 g LV Mass Index: 51.35 43-95/49-115 g/m2 LVOT Diam: 2.00 3.0+(-)1.3 cm 2D Systolic Function EF 4C: 59.40 >55% EF 2C: 62.70 >55% EF BiP: 61.70 >55% Mitral Valve MV Pk E: 0.99 MV PK A: 1.53 MV Decel Time: 199.00 E/A: 0.60 E'Lateral: 5.66 E'Medial: 4.35 E/E' Med: 22.80 E/E' Lat: 17.50 PHT: 58.00 MVA PHT: 3.79 Decel [place]: 4.99 Aortic Valve AoV Pk Madhu: 4.44 AoV Mn Madhu: 3.18 AoV VTI: 0.91 AoV Pk Grad: 79.00 Aov Mn Grad: 46.00 CLIFFORD Cont.VTI: 0.80 AI Pk Madhu: 3.07 AI [place]: 1.80 LVOT LVOT Pk Madhu: 1.07 LVOT Mn Madhu: 0.80 LVOT VTI: 0.23 LVOT Pk Grad: 5.00 LVOT Mn Grad: 3.00 LVOT Diam: 2.00 LVOT Area: 3.14 Diastolic Function MV Pk E: 0.99 MV Pk A: 1.53 E/A: 0.60 E'Medial: 4.35 E/E' Med: 22.80 E' Laterial: 5.66 E/E' Lat: 17.50 Right Ventricle TAPSE (mm): 15.50 TVS' Madhu: 11.10 Tricuspid Valve RA Press: 3.00 Great Vessels Aorta Sinus of Valsalva: 3.06 2.0-3.[address] [place]: 2.62 1.7-3.4 cm Ao Asc: 3.00 2.1-3.4 cm Updated in Other Vendor System with Status of Final Richi Ta MD electronically signed on 11/21/2021 4:27:35 PM with status of Final
[2021-11-21 09:00] VITALS: BP 102/62; PULSE 90; RESP 18; TEMP 36.8; O2SAT 95
[2021-11-21] MEDS: Sevelamer Carbonate Tablet 800 MG TABLET 1600 MG PO ×3 (09:19→18:30)
[2021-11-21] MEDS: Midodrine HCl 5 MG TABLET PO ×3 (09:19→19:48)
[2021-11-21] MEDS: Apixaban 2.5 MG TABLET PO ×2 (09:20→19:48)
[2021-11-21] MEDS: Benzonatate 100 MG CAPSULE PO ×3 (09:20→19:48)
[2021-11-21] MEDS: Salmeterol Xinafoate 50 MCG BLST.W.DEV 1 PUFF INHALE ×2 (09:20→19:47)
[2021-11-21] MEDS: Dronedarone HCl 400 MG TABLET PO ×2 (09:26→19:47)
[2021-11-21] MEDS: Acetaminophen 325 MG TABLET 650 MG PO ×2 (09:41→19:47)
--- NOTE | 2021-11-21 11:48 | P.PNPSI_ITS ---
Subjective Subjective Date of Service: 11/21/21 Reason For Visit: Savita Subjective Notes: Conditional Voluntary Interim History: The nursing staff reports the patient has been very medically complicated. According to her , she has the chronic delusions that she is . According to the staff she slept well. The renal social worker contact her apparently when she gets agitated and manic she becomes physically and verbally abusive towards him. The staff reports that she has been pleasant, cooperative and fully compliant with treatment. On interview, the patient denies new symptoms and reports no side effects. She requested to be discharged today if it is possible. Mental Status Exam Mental Status Exam Patient Appearance: Well Grooomed Patient Orientation: Person Level of Consciousness: Awake Patient Behavior: Guarded and Passive Mood Description: Constricted Affect Description: Labile Patient Cognition Impaired: Yes Ability to Follow Directions: Good Speech Pattern: Rapid Hallucinations: Auditory Delusions: Bizarre Thought Process: Illogical and Evasive Thought Content: positive for [place], positive for Poverty of Content and positive for Tangential Judgement: Fair Diagnostics Vital Signs (24Hr): Vital Signs - 24 hr 11/20/21 19:57 11/21/21 09:00 Temperature 97.9 F 98.2 F Pulse Rate 84 90 Respiratory Rate 18 18 Blood Pressure 95/52 L 102/62 Pulse Oximetry 96 95 BMI result Body Mass Index 21.2 Labs Results: 11/20/21 07:09 11/17/21 06:56 Labs: Laboratory Results - last 48 hr 11/17/21 11/20/21 11/20/21 11:41 07:09 07:09 WBC 5.4 RBC 2.89 L Hgb 8.6 L D Hct 28.0 L MCV 96.9 MCH 29.8 MCHC 30.7 L RDW 15.7 Plt Count 166 D MPV 9.3 L Immature Gran % (Auto) 0.7 H Neut % (Auto) 69.3 Lymph % (Auto) 12.5 L Branch % (Auto) 13.6 H Eos % (Auto) 3.3 Baso % (Auto) 0.6 Lymph # (Auto) 0.7 L Branch # (Auto) 0.7 Eos # (Auto) 0.2 Baso # (Auto) 0.0 Abs Immat Gran (auto) 0.04 H Absolute Neuts (auto) 3.8 Absolute Nucleated RBC 0.000 Nucleated RBC % (auto) 0.0 Lactic Acid 0.8 Troponin I High Sens Ref Lab Test Result SEE NOTE 11/20/21 11/20/21 07:09 09:59 WBC RBC Hgb Hct MCV MCH MCHC RDW Plt Count MPV Immature Gran % (Auto) Neut % (Auto) Lymph % (Auto) Branch % (Auto) Eos % (Auto) Baso % (Auto) Lymph # (Auto) Branch # (Auto) Eos # (Auto) Baso # (Auto) Abs Immat Gran (auto) Absolute Neuts (auto) Absolute Nucleated RBC Nucleated RBC % (auto) Lactic Acid Troponin I High Sens 167.5 H* D 206.1 H* Ref Lab Test Result Medications Medications Current Medications Acetaminophen (Acetaminophen 325 Mg Tablet) 650 mg PO Q6H PRN PRN Reason: Pain, Mild (Pain Scale 1-3) Last Admin: 11/19/21 23:25 Dose: 650 mg Documented by: Acetaminophen (Acetaminophen 325 Mg Tablet) 650 mg PO BID PRN PRN Reason: Pain (Scale Score 1-3) Last Admin: 11/21/21 09:41 Dose: 650 mg Documented by: Al Hydroxide/Mg Hydroxide (Magnesium Hydrox/Alum Hydrox 30 Ml Oral.Susp) 30 ml PO Q6H PRN PRN Reason: Heartburn/Nausea Last Admin: 11/19/21 15:16 Dose: 30 ml Documented by: Albuterol Sulfate (Albuterol Sulfate 90 Mcg 8 Gm Inhaler) 2 puff INHALE RQ4H PRN PRN Reason: Wheezing Apixaban (Apixaban 2.5 Mg Tablet) 2.5 mg PO BID [facility] Last Admin: 11/21/21 09:20 Dose: 2.5 mg Documented by: Benzonatate (Benzonatate 100 Mg Capsule) 100 mg PO TID PRN PRN Reason: Cough Last Admin: 11/17/21 06:16 Dose: 100 mg Documented by: Benzonatate (Benzonatate 100 Mg Capsule) 100 mg PO TID [facility] Last Admin: 11/21/21 09:20 Dose: 100 mg Documented by: Clozapine (Clozapine 100 Mg Tablet) 200 mg PO BEDTIME [facility] Last Admin: 11/20/21 20:00 Dose: 200 mg Documented by: Dronedarone (Dronedarone Hcl 400 Mg Tablet) 400 mg PO BID [facility] Last Admin: 11/21/21 09:26 Dose: 400 mg Documented by: Hydrocortisone (Hydrocortisone 1 % Cream 28.35 Gm Tube) 1 appl TOPICAL BID PRN PRN Reason: skin irritation Hydroxyzine HCl (Hydroxyzine Hcl 50 Mg Tablet) 50 mg PO BEDTIME PRN PRN Reason: for insomnia Last Admin: 11/14/21 20:30 Dose: 50 mg Documented by: Meropenem 500 mg/ Sodium (Chloride) 50 mls @ 100 mls/hr IV DAILY@1645 [facility] Last Infusion: 11/20/21 17:14 Dose: Infused Documented by: Lamotrigine (Lamotrigine 100 Mg Tablet) 150 mg PO BEDTIME [facility] Last Admin: 11/20/21 20:02 Dose: 150 mg Documented by: Levothyroxine Sodium (Levothyroxine Sodium 150 Mcg Tablet) 150 mcg PO DAILY@0630 [facility] Last Admin: 11/21/21 05:14 Dose: 150 mcg Documented by: Loperamide HCl (Loperamide Hcl 2 Mg Capsule) 2 mg PO Q4H PRN PRN Reason: Diarrhea Last Admin: 11/21/21 09:42 Dose: 2 mg Documented by: Magnesium Hydroxide (Milk Of Magnesia 30 Ml Oral.Susp) 30 ml PO DAILY PRN PRN Reason: Constipation Melatonin (Melatonin 3 Mg Tablet) 6 mg PO BEDTIME PRN PRN Reason: Insomnia Last Admin: 11/20/21 20:01 Dose: 6 mg Documented by: Melatonin (Melatonin 3 Mg Tablet) 6 mg PO DAILY PRN PRN Reason: Insomnia Last Admin: 11/14/21 12:05 Dose: 6 mg Documented by: Miconazole Nitrate (Miconazole 2 % Extra Thick Cr 56.7 Gm Tube) 1 appl TOPICAL BID [facility]; Protocol Last Admin: 11/21/21 05:19 Dose: 1 appl Documented by: Midodrine (Midodrine Hcl 5 Mg Tablet) 5 mg PO TID [facility] Last Admin: 11/21/21 09:19 Dose: 5 mg Documented by: Salmeterol Xinafoate (Salmeterol Xinafoate 50 Mcg Blst.W.Dev) 1 puff INHALE RBID [facility] Last Admin: 11/21/21 09:20 Dose: 1 puff Documented by: Sevelamer Carbonate (Sevelamer Carbonate Tablet 800 Mg Tablet) 1,600 mg PO TIDWM [facility] Last Admin: 11/21/21 09:19 Dose: 1,600 mg Documented by: Sodium Chloride (0.9 % Sodium Chloride Flush 3 Ml Syringe) 3 ml IVFLUSH QSHIFT [facility] Last Admin: 11/21/21 09:40 Dose: 3 ml Documented by: Tamoxifen Citrate (Tamoxifen Citrate 10 Mg Tablet) 20 mg PO DAILY@1400 [facility] Last Admin: 11/20/21 15:50 Dose: 20 mg Documented by: Tiotropium [place] (Tiotropium [place] 18 Mcg Cap.W.Dev) 1 puff INHALE RDAILY [facility] Last Admin: 11/21/21 09:20 Dose: 1 puff Documented by: Trazodone HCl (Trazodone Hcl 50 Mg Tablet) 50 mg PO BEDTIME PRN PRN Reason: Insomnia Last Admin: 11/20/21 21:22 Dose: 50 mg Documented by: Allergies Allergies Allergy/AdvReac Type Severity Reaction Status Date / Time adhesive tape Allergy Intermediate Blister Verified 11/13/21 21:04 aspirin Allergy Intermediate RASH Verified 11/13/21 21:04 benztropine Allergy Intermediate RASH Verified 11/13/21 21:04 NSAIDS (Non-Steroidal Allergy Intermediate RASH Verified 11/13/21 21:04 Anti-Inflamma ziprasidone Allergy Intermediate UNKNOWN Verified 11/13/21 21:04 doxycycline AdvReac Vomiting Verified 11/13/21 21:04 oxycodone AdvReac Anaphylaxis Verified 11/13/21 21:04 Assessment & Plan Assessment & Plan (1) Bipolar 1 disorder: Status: Acute Code(s): F31.9 - Bipolar disorder, unspecified Plan ?elderly female with a long history of bipolar disorder and other several medical comorbidities admitted to Psychiatry for exacerbation of savita since she recently had and has survey bustillos of her chronic renal failure and medications needed to be lowered.? At this moment she presents with savita unable to take care of herself.? Plan 1. continue same treatment. 2. Since the patient is off contact precautions at this moment we will continue the slow titration of Clozaril. I spent ___20___ minutes with the patient and/or on the patient floor today, greater than?50% of which was spent counseling/coordinating care. Reason for contiued inpatient stay Substantial Risk for: inability to function, rapid decompensation and med/psych decompensation
[2021-11-21] MEDS: Tamoxifen Citrate 10 MG TABLET 20 MG PO (13:47)
[2021-11-21 15:15] VITALS: BMI 21.2
--- NOTE | 2021-11-21 15:30 | MHC.CLN ---
F/U VISITED DURING DIALYSIS. REPORTS GOOD APPETITE. INCREASED NUTRIENT NEEDS, PROTEIN, DUE TO DIALYSIS AND PRESSURE INJURY. ADDING ENSURE CLEAR BID TO PROVIDE ADDITIONAL 480 KCALS, 16 G PROTEIN.
[2021-11-21] MEDS: cloZAPine 25 MG TABLET PO (18:31)
[2021-11-21] MEDS: Melatonin 3 MG TABLET 6 MG PO (19:47)
[2021-11-21] MEDS: lamoTRIgine 100 MG TABLET 150 MG PO (19:48)
[2021-11-21] MEDS: cloZAPine 100 MG TABLET 200 MG PO (19:48)
[2021-11-21 20:38] VITALS: BP 121/58; PULSE 90; RESP 16; TEMP 36.6; O2SAT 97
[2021-11-21] MEDS: hydrOXYzine HCL 50 MG TABLET PO (23:24)
[2021-11-21] MEDS: traZODone HCL 50 MG TABLET PO (23:24)
[2021-11-22] MEDS: Levothyroxine Sodium 150 MCG TABLET PO (05:25)
[2021-11-22 08:17] VITALS: BP 101/55; PULSE 83; RESP 16; TEMP 37; O2SAT 95
[2021-11-22] MEDS: Benzonatate 100 MG CAPSULE PO ×3 (08:34→19:46)
[2021-11-22] MEDS: Sevelamer Carbonate Tablet 800 MG TABLET 1600 MG PO ×3 (08:34→17:27)
[2021-11-22] MEDS: Dronedarone HCl 400 MG TABLET PO ×2 (08:34→19:45)
[2021-11-22] MEDS: Midodrine HCl 5 MG TABLET PO ×3 (08:34→19:45)
[2021-11-22] MEDS: Apixaban 2.5 MG TABLET PO ×2 (08:34→19:46)
[2021-11-22] MEDS: cloZAPine 25 MG TABLET PO (08:34)
[2021-11-22] MEDS: Salmeterol Xinafoate 50 MCG BLST.W.DEV 1 PUFF INHALE (08:35)
[2021-11-22] MEDS: 0.9 % Sodium Chloride Flush 3 ML SYRINGE IVFLUSH ×3 (08:47→23:51)
[2021-11-22] MEDS: Acetaminophen 325 MG TABLET 650 MG PO ×2 (08:47→19:43)
[2021-11-22] MEDS: Tamoxifen Citrate 10 MG TABLET 20 MG PO (13:38)
[2021-11-22] MEDS: Miconazole 2 % Extra Thick Cr 56.7 Gm Tube 1 APPL TOPICAL ×2 (13:40→15:14)
--- NOTE | 2021-11-22 14:14 | HO.PSYCHPN ---
Subjective Subjective Date of Service: 11/22/21 Reason For Visit: Savita Subjective Notes: Conditional Voluntary Interim History: the nursing staff reported the patient has a good night sleep, she was pleasant and cooperative. The staff yesterday reported the symptoms she sexually disinhibited but it seems that she is at her baseline. During the rounds, the staff the nose her for years stated that she is at her baseline. We called her and apparently at this moment she is doing much better than before. On interview the patient reports that she is doing fine she wants to go home and she is going to be fully compliant with treatment. We increase Clozaril up to 50 mg p.o. b.i.d. to target the total dose of Clozaril 300 mg a day with no side effects. Mental Status Exam Mental Status Exam Patient Appearance: Appropriate Patient Orientation: Person and Situation Level of Consciousness: Awake Patient Behavior: Cooperative Mood Description: Calm and Relaxed Affect Description: Constricted Patient Cognition Impaired: Yes Ability to Follow Directions: Good Speech Pattern: Clear Hallucinations: None Delusions: Bizarre ( Chronic delusions of being ) Thought Process: Distracted and Evasive Thought Content: positive for [place], positive for [place]sever[place] and positive for Poverty of Content Judgement: Fair Diagnostics Vital Signs (24Hr): Vital Signs - 24 hr 11/21/21 20:38 11/22/21 08:17 Temperature 97.9 F 98.6 F Pulse Rate 90 83 Respiratory Rate 16 16 Blood Pressure 121/58 L 101/55 L Pulse Oximetry 97 95 BMI result Body Mass Index 21.2 Labs Results: 11/20/21 07:09 11/17/21 06:56 Medications Medications Current Medications Acetaminophen (Acetaminophen 325 Mg Tablet) 650 mg PO BID PRN PRN Reason: Pain (Scale Score 1-3) Last Admin: 11/22/21 08:47 Dose: 650 mg Documented by: Al Hydroxide/Mg Hydroxide (Magnesium Hydrox/Alum Hydrox 30 Ml Oral.Susp) 30 ml PO Q6H PRN PRN Reason: Heartburn/Nausea Last Admin: 11/19/21 15:16 Dose: 30 ml Documented by: Albuterol Sulfate (Albuterol Sulfate 90 Mcg 8 Gm Inhaler) 2 puff INHALE RQ4H PRN PRN Reason: Wheezing Apixaban (Apixaban 2.5 Mg Tablet) 2.5 mg PO BID [facility] Last Admin: 11/22/21 08:34 Dose: 2.5 mg Documented by: Benzonatate (Benzonatate 100 Mg Capsule) 100 mg PO TID PRN PRN Reason: Cough Last Admin: 11/17/21 06:16 Dose: 100 mg Documented by: Benzonatate (Benzonatate 100 Mg Capsule) 100 mg PO TID [facility] Last Admin: 11/22/21 08:34 Dose: 100 mg Documented by: Clozapine (Clozapine 100 Mg Tablet) 200 mg PO BEDTIME [facility] Last Admin: 11/21/21 19:48 Dose: 200 mg Documented by: Clozapine (Clozapine 25 Mg Tablet) 50 mg PO BID@0800,1500 [facility] Dronedarone (Dronedarone Hcl 400 Mg Tablet) 400 mg PO BID [facility] Last Admin: 11/22/21 08:34 Dose: 400 mg Documented by: Hydrocortisone (Hydrocortisone 1 % Cream 28.35 Gm Tube) 1 appl TOPICAL BID PRN PRN Reason: skin irritation Hydroxyzine HCl (Hydroxyzine Hcl 50 Mg Tablet) 50 mg PO BEDTIME PRN PRN Reason: for insomnia Last Admin: 11/21/21 23:24 Dose: 50 mg Documented by: Lamotrigine (Lamotrigine 100 Mg Tablet) 150 mg PO BEDTIME [facility] Last Admin: 11/21/21 19:48 Dose: 150 mg Documented by: Levothyroxine Sodium (Levothyroxine Sodium 150 Mcg Tablet) 150 mcg PO DAILY@0630 [facility] Last Admin: 11/22/21 05:25 Dose: 150 mcg Documented by: Loperamide HCl (Loperamide Hcl 2 Mg Capsule) 2 mg PO Q4H PRN PRN Reason: Diarrhea Last Admin: 11/21/21 19:48 Dose: 2 mg Documented by: Magnesium Hydroxide (Milk Of Magnesia 30 Ml Oral.Susp) 30 ml PO DAILY PRN PRN Reason: Constipation Melatonin (Melatonin 3 Mg Tablet) 6 mg PO BEDTIME PRN PRN Reason: Insomnia Last Admin: 11/21/21 19:47 Dose: 6 mg Documented by: Melatonin (Melatonin 3 Mg Tablet) 6 mg PO DAILY PRN PRN Reason: Insomnia Last Admin: 11/14/21 12:05 Dose: 6 mg Documented by: Miconazole Nitrate (Miconazole 2 % Extra Thick Cr 56.7 Gm Tube) 1 appl TOPICAL BID [facility]; Protocol Last Admin: 11/22/21 13:40 Dose: 1 appl Documented by: Midodrine (Midodrine Hcl 5 Mg Tablet) 5 mg PO TID [facility] Last Admin: 11/22/21 08:34 Dose: 5 mg Documented by: Salmeterol Xinafoate (Salmeterol Xinafoate 50 Mcg Blst.W.Dev) 1 puff INHALE RBID [facility] Last Admin: 11/22/21 08:35 Dose: 1 puff Documented by: Sevelamer Carbonate (Sevelamer Carbonate Tablet 800 Mg Tablet) 1,600 mg PO TIDWM COUNT [facility]CLUD[facility] Last Admin: 11/22/21 13:38 Dose: 1,600 mg Documented by: Sodium Chloride (0.9 % Sodium Chloride Flush 3 Ml Syringe) 3 ml IVFLUSH QSHIFT [facility] Last Admin: 11/22/21 08:47 Dose: 3 ml Documented by: Tamoxifen Citrate (Tamoxifen Citrate 10 Mg Tablet) 20 mg PO DAILY@1400 [facility] Last Admin: 11/22/21 13:38 Dose: 20 mg Documented by: Tiotropium [place] (Tiotropium [place] 18 Mcg Cap.W.Dev) 1 puff INHALE RDAILY [facility] Last Admin: 11/22/21 08:35 Dose: 1 puff Documented by: Trazodone HCl (Trazodone Hcl 50 Mg Tablet) 50 mg PO BEDTIME PRN PRN Reason: Insomnia Last Admin: 11/21/21 23:24 Dose: 50 mg Documented by: Allergies Allergies Allergy/AdvReac Type Severity Reaction Status Date / Time adhesive tape Allergy Intermediate Blister Verified 11/13/21 21:04 aspirin Allergy Intermediate RASH Verified 11/13/21 21:04 benztropine Allergy Intermediate RASH Verified 11/13/21 21:04 NSAIDS (Non-Steroidal Allergy Intermediate RASH Verified 11/13/21 21:04 Anti-Inflamma ziprasidone Allergy Intermediate UNKNOWN Verified 11/13/21 21:04 doxycycline AdvReac Vomiting Verified 11/13/21 21:04 oxycodone AdvReac Anaphylaxis Verified 11/13/21 21:04 Assessment & Plan Assessment & Plan (1) Bipolar 1 disorder: Status: Acute Code(s): F31.9 - Bipolar disorder, unspecified Plan ?elderly female with a long history of bipolar disorder and other several medical comorbidities admitted to Psychiatry for exacerbation of savita since she recently had and has survey bustillos of her chronic renal failure and medications needed to be lowered.? At this moment she presents with savita unable to take care of herself.? Plan 1. continue same treatment. 2. Since the patient is off contact precautions at this moment we will continue the slow titration of Clozaril. 3. Discharge tomorrow. I spent ___20___ minutes with the patient and/or on the patient floor today, greater than?50% of which was spent counseling/coordinating care. Reason for contiued inpatient stay Substantial Risk for: inability to function, rapid decompensation and med/psych decompensation
[2021-11-22] MEDS: Loperamide HCl 2 MG CAPSULE PO ×2 (15:08→19:42)
[2021-11-22] MEDS: cloZAPine 25 MG TABLET 50 MG PO (17:28)
[2021-11-22 18:00] VITALS: BP 124/60; PULSE 88; TEMP 37.2; O2SAT 94
[2021-11-22] MEDS: lamoTRIgine 100 MG TABLET 150 MG PO (19:44)
[2021-11-22] MEDS: cloZAPine 100 MG TABLET 200 MG PO (19:52)
[2021-11-22] MEDS: hydrOXYzine HCL 50 MG TABLET PO (23:50)
[2021-11-23] MEDS: Melatonin 3 MG TABLET 6 MG PO (01:48)
[2021-11-23] MEDS: Levothyroxine Sodium 150 MCG TABLET PO (06:12)
[2021-11-23] MEDS: Acetaminophen 325 MG TABLET 650 MG PO (06:34)
[2021-11-23 08:00] VITALS: BP 108/66; PULSE 88; RESP 16; TEMP 36.6; O2SAT 94
[2021-11-23] MEDS: cloZAPine 25 MG TABLET 50 MG PO (10:11)
--- NOTE | 2021-11-23 11:30 | P.DS_ITS ---
DS: Providers Provider Date of Service: 11/23/21 Date of admission: 11/13/21 23:02 Date of discharge: 11/23/21 Primary care physician: Gabriel Acosta MD Consults: 11/13/21 23:03 Consult to Psychiatry Routine Consulting Provider: Psych Covering Reason for consultation: delirium/agitation/psychosis 11/13/21 23:04 Consult to Infectious Diseases Routine Consulting Provider: Angelina Salamanca Reason for consultation: bacteremia 11/14/21 04:44 Consult to Infectious Diseases Routine Consulting Provider: Angelina Salamanca Reason for consultation: ESBL UTI on mereopenem 11/14/21 04:47 Consult to Nephrology Routine Consulting Provider: Héctor Marroquin Reason for consultation: ESRD 11/17/21 21:23 Consult to Wound Care Routine Consulting Provider[place] [facility] Reason for consultation: large decubitus ulcer Has provider been notified: No DS: Diagnosis Discharge Diagnosis (1) Bipolar 1 disorder: Status: Acute DS: Medications Discharge Medications Home Medications: Home Medications Medication Instructions Recorded Confirmed clonazepam 1 mg tablet 1 mg PO BEDTIME 05/21/20 11/13/21 lamotrigine 150 mg tablet 150 mg PO BEDTIME 05/21/20 11/13/21 acetaminophen 325 mg tablet 650 mg PO BID PRN 05/22/20 11/13/21 tamoxifen 20 mg tablet 20 mg PO DAILY@1400 07/15/21 11/13/21 apixaban 2.5 mg tablet (Eliquis) 2.5 mg PO BID 09/03/21 11/13/21 sevelamer carbonate 800 mg tablet 1,600 mg PO TIDWM tab 09/27/21 11/13/21 dronedarone 400 mg tablet (Multaq) 1 tab PO BID 10/20/21 11/13/21 albuterol sulfate 90 mcg/actuation 2 puff INHALATION Q4-6H PRN 11/01/21 11/13/21 aerosol inhaler clozapine 100 mg tablet 150 mg PO BEDTIME 11/01/21 11/13/21 levothyroxine 150 mcg tablet 1 tab PO DAILY 11/01/21 11/13/21 melatonin 3 mg tablet 6 mg PO DAILY PRN 11/01/21 11/13/21 umeclidinium 62.5 mcg-vilanterol 1 puff INHALATION DAILY 11/01/21 11/13/21 25 mcg/actuation powdr for inhalation (Anoro Ellipta) Previous Rx's Medication Instructions Recorded hydroxyzine pamoate 50 mg capsule 50 mg PO BEDTIME PRN #90 cap 09/09/21 hydrocortisone 2.5 % topical cream 1 appl TOPICAL BID PRN #20 g 09/27/21 benzonatate 100 mg capsule 100 mg PO TID #20 cap 10/27/21 midodrine 5 mg tablet 5 mg PO BID #60 tab 10/27/21 ertapenem 1 gram solution for 0.5 g IM Q24H #7 ea 11/13/21 injection Mental Status Exam Mental Status Exam Patient Appearance: Well Grooomed Patient Orientation: Person and Situation Level of Consciousness: Awake Patient Behavior: Cooperative Mood Description: Constricted Affect Description: Labile Patient Cognition Impaired: Yes Ability to Follow Directions: Good Speech Pattern: Clear Hallucinations: Auditory Delusions: Bizarre Thought Process: Distracted and Linear Thought Content: positive for [place], positive for Poverty of Content and positive for Loose Associations Judgement: Fair Data Data Completed and Pending Completed studies during hospitalization [Text1]: 11/17/21 11/17/21 11/18/21 06:56 11:41 06:12 WBC RBC Hgb Hct MCV MCH MCHC RDW Plt Count MPV Immature Gran % (Auto) Neut % (Auto) Lymph % (Auto) [place] % (Auto) Eos % (Auto) Baso % (Auto) Lymph # (Auto) [place] # (Auto) Eos # (Auto) Baso # (Auto) Abs Immat Gran (auto) Absolute Neuts (auto) Absolute Nucleated RBC Nucleated RBC % (auto) Sodium 137 Potassium 5.6 H Chloride 102 Carbon Dioxide 25 Anion Gap 16 BUN 25 H Creatinine 4.51 H* Estim Creat Clear Calc 9.0 Estimated GFR 10 Fasting Glucose 83 Lactic Acid Calcium 10.9 H Total Bilirubin 0.3 AST 10 ALT < 6 Alkaline Phosphatase 112 Troponin I High Sens Total Protein 6.3 L Albumin 3.3 L Triglycerides 117 Cholesterol 93 LDL Cholesterol, Calc 35 HDL Cholesterol 35 Respiratory Panel Saha See Note Adenovirus (Rapid PCR) Not Detected B.pert (TEM-PCR) Not Detected B.parapertussis DNA PCR Not Detected C. pneumoniae DNA (PCR) Not Detected Coronavirus OC43 (PCR) Not Detected Coronavirus HKU1 (PCR) Not Detected Coronavirus 229E (PCR) Not Detected Coronavirus NL63 (PCR) Not Detected Human Metapneumovir PCR Not Detected Influenza A (RT-PCR) Not Detected Influenza B (RT-PCR) Not Detected M. pneumoniae (PCR) Not Detected Parainfluenza 1 (PCR) Not Detected Parainfluenza 2 (PCR) Not Detected Parainfluenza 3 (PCR) Not Detected Parainfluenza 4 (PCR) Not Detected RSV (PCR) Not Detected Entero/Rhino (PCR) Not Detected SARS-CoV-2 RNA (RT-PCR) Not Detected Ref Lab Test Result SEE NOTE 11/20/21 11/20/21 11/20/21 07:09 07:09 07:09 WBC 5.4 RBC 2.89 L Hgb 8.6 L D Hct 28.0 L MCV 96.9 MCH 29.8 MCHC 30.7 L RDW 15.7 Plt Count 166 D MPV 9.3 L Immature Gran % (Auto) 0.7 H Neut % (Auto) 69.3 Lymph % (Auto) 12.5 L [place] % (Auto) 13.6 H Eos % (Auto) 3.3 Baso % (Auto) 0.6 Lymph # (Auto) 0.7 L [place] # (Auto) 0.7 Eos # (Auto) 0.2 Baso # (Auto) 0.0 Abs Immat Gran (auto) 0.04 H Absolute Neuts (auto) 3.8 Absolute Nucleated RBC 0.000 Nucleated RBC % (auto) 0.0 Sodium Potassium Chloride Carbon Dioxide Anion Gap BUN Creatinine Estim Creat Clear Calc Estimated GFR Fasting Glucose Lactic Acid 0.8 Calcium Total Bilirubin AST ALT Alkaline Phosphatase Troponin I High Sens 167.5 H* D Total Protein Albumin Triglycerides Cholesterol LDL Cholesterol, Calc HDL Cholesterol Respiratory Panel Saha Adenovirus (Rapid PCR) B.pert (TEM-PCR) B.parapertussis DNA PCR C. pneumoniae DNA (PCR) Coronavirus OC43 (PCR) Coronavirus HKU1 (PCR) Coronavirus 229E (PCR) Coronavirus NL63 (PCR) Human Metapneumovir PCR Influenza A (RT-PCR) Influenza B (RT-PCR) M. pneumoniae (PCR) Parainfluenza 1 (PCR) Parainfluenza 2 (PCR) Parainfluenza 3 (PCR) Parainfluenza 4 (PCR) RSV (PCR) Entero/Rhino (PCR) SARS-CoV-2 RNA (RT-PCR) Ref Lab Test Result 11/20/21 09:59 WBC RBC Hgb Hct MCV MCH MCHC RDW Plt Count MPV Immature Gran % (Auto) Neut % (Auto) Lymph % (Auto) [place] % (Auto) Eos % (Auto) Baso % (Auto) Lymph # (Auto) [place] # (Auto) Eos # (Auto) Baso # (Auto) Abs Immat Gran (auto) Absolute Neuts (auto) Absolute Nucleated RBC Nucleated RBC % (auto) Sodium Potassium Chloride Carbon Dioxide Anion Gap BUN Creatinine Estim Creat Clear Calc Estimated GFR Fasting Glucose Lactic Acid Calcium Total Bilirubin AST ALT Alkaline Phosphatase Troponin I High Sens 206.1 H* Total Protein Albumin Triglycerides Cholesterol LDL Cholesterol, Calc HDL Cholesterol Respiratory Panel Saha Adenovirus (Rapid PCR) B.pert (TEM-PCR) B.parapertussis DNA PCR C. pneumoniae DNA (PCR) Coronavirus OC43 (PCR) Coronavirus HKU1 (PCR) Coronavirus 229E (PCR) Coronavirus NL63 (PCR) Human Metapneumovir PCR Influenza A (RT-PCR) Influenza B (RT-PCR) M. pneumoniae (PCR) Parainfluenza 1 (PCR) Parainfluenza 2 (PCR) Parainfluenza 3 (PCR) Parainfluenza 4 (PCR) RSV (PCR) Entero/Rhino (PCR) SARS-CoV-2 RNA (RT-PCR) Ref Lab Test Result DS: Summary Hospital Course Hospital Course: the patient was admitted, transferred from the medical unit for several medical problems and altered mental status with manic symptoms. Please see HPI of the admission note for further details. The patient was restarted on Clozaril 200 mg p.o. q.h.s. to target her tawny. We started the slow titration of Clozaril up to 50 mg p.o. b.i.d. and the patient's tawny resolved. She has chronic delusions regarding of being but she was easily redirectable. The staff the nose her for years reported that she was at baseline and discharge planning was discussed. On evaluation of discharge, the patient reported that she was feeling fine a little sedated with clozapine. Time spent discussing smoking cessation with patient: 3 to 10 minutes Status at Discharge Cognitive/behavioral status at discharge: The patient is at baseline Functional status at discharge: independent ambulation Overall status at discharge: patient is back to baseline Time Spent with Patient Time attestation: Total time spent providing and/or coordinating discharge services: Time spent: Less than 30 minutes Discharge Plan Discharge Patient Disposition: Xfer Psychiatric Hosp Discharge Diagnosis: psychosis Referrals: DR. Melyssa Wilkes [Other] - 12/04/21 2:30 pm (Appointment scheduled for December 04, 2021 @ 2:30 PM IN-OFFICE visit.) [facility] [Other] - 1 Day (Dialysis Appointment 11/23/21 4:15 pm ) [facility] [Other] - 3-5 Days ([facility] will resume services and were informed of discharge for tomorrow at 11 AM.) Gabriel Acosta MD [Primary Care Provider] - 11/28/21 2:15 pm () Discharge Medications: Continued hydroxyzine pamoate 50 mg capsule 50 mg PO BEDTIME PRN (Reason: for insomnia) Qty: 90 1RF lamotrigine 150 mg tablet 150 mg PO BEDTIME 0RF clonazepam 1 mg tablet 1 mg PO BEDTIME 0RF acetaminophen 325 mg Tablet 650 mg PO BID PRN (Reason: Pain (Scale Score 1-3)) 0RF sevelamer carbonate 800 mg tablet 1,600 mg PO TIDWM 0RF tamoxifen 20 mg tablet 20 mg PO DAILY@1400 0RF Multaq 400 mg tablet 1 tab PO BID 0RF midodrine 5 mg Tablet 5 mg PO BID Qty: 60 0RF benzonatate 100 mg Capsule 100 mg PO TID Qty: 20 0RF clozapine 100 mg tablet 150 mg PO BEDTIME 0RF melatonin 3 mg Tablet 6 mg PO DAILY PRN (Reason: Insomnia) 0RF levothyroxine 150 mcg tablet 1 tab PO DAILY 0RF albuterol sulfate 90 mcg/actuation Hfa Aerosol Inhaler 2 puff INHALATION Q4-6H PRN (Reason: Wheezing) 0RF Anoro Ellipta 62.5-25 mcg/actuation blister with device 1 puff inhalation DAILY 0RF ertapenem 1 gram recon soln 0.5 g IM Q24H Qty: 7 0RF Rx Instructions: pt d/c'd today. sent home with PICC line for IV abx. D/C instructions state IM abx. hydrocortisone 2.5 % cream 1 appl topical BID PRN (Reason: skin irritation) Qty: 20 0RF Eliquis 2.5 mg tablet 2.5 mg PO BID 0RF Discharge Orders: Discharge Order (Routine); Ordered 11/23/21 Ordered By: Vinay Lyman Activity on Discharge: As tolerated Stand Alone Forms: Patient Portal Discharge page, Community Support
[2021-11-23] MEDS: Benzonatate 100 MG CAPSULE PO (11:45)
[2021-11-23] MEDS: Dronedarone HCl 400 MG TABLET PO (11:45)
[2021-11-23] MEDS: Apixaban 2.5 MG TABLET PO (11:46)
[2021-11-23] MEDS: Sevelamer Carbonate Tablet 800 MG TABLET 1600 MG PO (11:46)
[2021-11-23] MEDS: Midodrine HCl 5 MG TABLET PO (11:46)
--- NOTE | 2021-11-23 15:11 | PC.NURSE ---
Patient was well aware and ready for discharge . Paper work and next dose medications explained to patient's and patient . Both verbalized understand . Patient was pleasant and cooperative with the discharge process. Patient was accompanied with belongings to the front of the buildings per hospital policy.
== END 2021-11-23 13:30 | disposition home or self-care (01) | DRG 885 ==
LOC: HO.ED 22:59 → HO.EDOVER 23:13 → HO.PGERI 11-16 11:35
PROVIDERS: Internal Medicine; Psychiatry & Neurology Psychiatry; Admitting Provider Hospitalist; Emergency Provider Emergency Medicine; PCP Internal Medicine; Visit Provider Psychiatry & Neurology Psychiatry
DX: F31.9 Bipolar disorder, unspecified (principal); N18.6 End stage renal disease; I12.0 Hypertensive chronic kidney disease with stage 5 chronic kidney disease or end stage renal disease; N39.0 Urinary tract infection, site not specified; J96.10 Chronic respiratory failure, unspecified whether with hypoxia or hypercapnia; C66.9 Malignant neoplasm of unspecified ureter; G93.40 Encephalopathy, unspecified; M19.90 Unspecified osteoarthritis, unspecified site; J44.9 Chronic obstructive pulmonary disease, unspecified; Z20.822 Contact with and (suspected) exposure to COVID-19; I48.0 Paroxysmal atrial fibrillation; E78.5 Hyperlipidemia, unspecified; B96.89 Other specified bacterial agents as the cause of diseases classified elsewhere; E03.9 Hypothyroidism, unspecified; D64.9 Anemia, unspecified; F41.9 Anxiety disorder, unspecified; I95.3 Hypotension of hemodialysis; R19.7 Diarrhea, unspecified; Z86.711 Personal history of pulmonary embolism; Z99.2 Dependence on renal dialysis; Z79.01 Long term (current) use of anticoagulants; Z79.899 Other long term (current) drug therapy; Z90.49 Acquired absence of other specified parts of digestive tract; Z85.3 Personal history of malignant neoplasm of breast; Z85.51 Personal history of malignant neoplasm of bladder; Z87.891 Personal history of nicotine dependence
CPT/HCPCS: 36415; 80048; 80053; 80061; 83605; 84484; 85025; 85027; 85048; 87633; 87635; 90999; 93306; 99285; J2185

== ENCOUNTER 2021-11-30 15:43 | Inpatient (IN) | payer MEDICARE, BC, SELFPAY ==
--- NOTE | ~2021-11-30 | CT_ITS ---
EXAMINATION: CT HEAD WITHOUT CONTRAST CLINICAL INFORMATION: Seizure. COMPARISON: 03/15/2020 and 02/07/2020. TECHNIQUE: Contiguous axial imaging was performed from the skull base to vertex without intravenous administration of contrast. This CT examination was performed using dose optimization techniques as appropriate, variously including the following: *Automated exposure control *Adjustment of mA and/or kV according to patient size (this includes techniques or standardized protocols for targeted exams where dose is matched to indication/reason for exam; i.e. extremities or head) *Use of iterative reconstruction technique DLP: 707 mGy-cm FINDINGS: There is no evidence of acute intracranial hemorrhage. No abnormal mass effect or midline shift is seen. Pace to white matter differentiation is well preserved. No extra-axial fluid collections are identified. Since previous study patient has developed a region of diminished density about the right gila which does not cross midline and does not have significant edematous change and is therefore likely an old infarct rather than a metastasis. There is prominence of ventricles, sulci, and cisterns. There is a large amount of periventricular white matter low density seen consistent with microangiopathy. There are carotid artery, vertebral artery, and basilar artery calcifications present. Lacunar infarcts are seen involving the right caudate head, anterior limb of the right internal capsule, left lentiform nucleus, left thalamus, and right gila. There is also noted to be a stable low-density region approximately 1 cm in diameter about the right frontal pace-white matter interface. No associated edema with this is seen. The osseous structures and soft tissues are normal. The mastoid air cells and visualized portions of the paranasal sinuses are well aerated. CT/CT head/brain wo con IMPRESSION: Interval development of what appears be an old infarct about the right gial since previous study of 03/15/2020. No intracranial hemorrhage or significant mass effect appreciated. Large amount of periventricular white matter disease as well as bilateral lacunar infarcts as described.
[2021-11-30 15:49] VITALS: BP 100/53; PULSE 86; RESP 20; TEMP 36.4; O2SAT 95; BMI 20.5
--- NOTE | 2021-11-30 18:00 | ECG_ITS ---
Test Reason : DIALYSIS Blood Pressure : / mmHG Vent. Rate : 084 BPM Atrial Rate : 084 BPM P-R Int : 166 ms QRS Dur : 088 ms QT Int : 408 ms P-R-T Axes : 043 018 029 degrees QTc Int : 482 ms Normal sinus rhythm Normal ECG When compared with ECG of 06-NOV-2021 08:08, T wave amplitude has decreased in Anterior leads Referred By: Colin Sanches Electronically Signed By:Aoml Basilio
--- NOTE | 2021-11-30 18:04 | MHC.CARE ---
CARE Team is aware of pt and should be consulted when pt is medically cleared.
[2021-11-30 18:05] VITALS: BP 114/54; PULSE 82; RESP 18; TEMP 36.6; O2SAT 95
--- NOTE | 2021-11-30 18:12 | ED.PSYCH ---
HPI - Psych General Chief Complaint: Psychiatric Symptoms Stated Complaint: Bipolar/crisis Time Seen by Provider: 11/30/21 17:59 Source: patient Mode of arrival: ambulatory Limitations: other (patient appears altered ) History of Present Illness HPI Narrative: 76-year-old female past medical history significant for bladder cancer, breast cancer, anemia, ESRD on dialysis (M,W,F), bipolar d/o, hypothyroidism, paroxismal a-fib presents to the emergency department with a erratic behavior according to X4 days. Also reports patient missed dialysis today and finished dialysis 2 hours early on Friday. According to living at home with presents over the past week has been nearly impossible. She has been damaging property within the home, destroying rooms, throwing things. She has been breaking glass when does. Not making sense, altered mental status. Patient has been extremely aggressive however patient says that she feels fine and there is nothing wrong with her. She tells me that she refuses to get dialysis she does not want to go into an inpatient psych for. Patient is constantly screaming at while in the room. She is making random comments throughout my history taking. She also is telling me that she is going to [place] and bringing everybody with her. Denies medical complaints at this time. She denies visual, auditory and tactile hallucinations. Denies SI and HI. Tells me she just wants to go home and she does not belong here. complaint: other (Erratic behavior) Onset (ago): week(s) (1) Duration: constant History of same: Yes Relieving factors: none Exacerbating factors: none Associated psychiatric symptoms: none Associated symptoms: denies other symptoms Treatments prior to arrival: none Related Data Home Medications Medication Instructions Recorded Confirmed clonazepam 1 mg tablet 1 mg PO BEDTIME 05/21/20 11/30/21 lamotrigine 150 mg tablet 150 mg PO BEDTIME 05/21/20 11/30/21 acetaminophen 325 mg tablet 650 mg PO BID PRN 05/22/20 11/30/21 tamoxifen 20 mg tablet 20 mg PO DAILY@1400 07/15/21 11/30/21 apixaban 2.5 mg tablet (Eliquis) 2.5 mg PO BID 09/03/21 11/30/21 sevelamer carbonate 800 mg tablet 1,600 mg PO TIDWM tab 09/27/21 11/30/21 dronedarone 400 mg tablet (Multaq) 1 tab PO BID 10/20/21 11/30/21 albuterol sulfate 90 mcg/actuation 2 puff INHALATION Q4-6H PRN 11/01/21 11/30/21 aerosol inhaler clozapine 100 mg tablet 200 mg PO BEDTIME 11/01/21 11/30/21 levothyroxine 150 mcg tablet 1 tab PO DAILY 11/01/21 11/30/21 melatonin 3 mg tablet 6 mg PO DAILY PRN 11/01/21 11/30/21 umeclidinium 62.5 mcg-vilanterol 1 puff INHALATION DAILY 11/01/21 11/30/21 25 mcg/actuation powdr for inhalation (Anoro Ellipta) clozapine 25 mg tablet 2 tab PO BID 11/30/21 11/30/21 olanzapine 5 mg tablet 1 tab PO BEDTIME 11/30/21 11/30/21 Previous Rx's Medication Instructions Recorded hydroxyzine pamoate 50 mg capsule 50 mg PO BEDTIME PRN #90 cap 09/09/21 hydrocortisone 2.5 % topical cream 1 appl TOPICAL BID PRN #20 g 09/27/21 benzonatate 100 mg capsule 100 mg PO TID #20 cap 10/27/21 midodrine 5 mg tablet 5 mg PO BID #60 tab 10/27/21 Allergies Allergy/AdvReac Type Severity Reaction Status Date / Time adhesive tape Allergy Intermediate Blister Verified 11/13/21 21:04 aspirin Allergy Intermediate RASH Verified 11/13/21 21:04 benztropine Allergy Intermediate RASH Verified 11/13/21 21:04 NSAIDS (Non-Steroidal Allergy Intermediate RASH Verified 11/13/21 21:04 Anti-Inflamma ziprasidone Allergy Intermediate UNKNOWN Verified 11/13/21 21:04 doxycycline AdvReac Vomiting Verified 11/13/21 21:04 oxycodone AdvReac Anaphylaxis Verified 11/13/21 21:04 Review of Systems Review of Systems: Constitutional : No Weight loss, No Fever, No Chills, No Fatigue, No Malaise ENT/Mouth : No sore throat, No Rhinorrhea Eyes: No Eye Pain, No Swelling, No Redness Cardiovascular : No Chest Pain, No SOB, No Dyspnea on Exertion, No Orthopnea, No Edema, No Palpitations Respiratory : No Cough, No Sputum, No Wheezing Gastrointestinal : No Nausea, No Vomiting, No Diarrhea, No Constipation, No abdominal Pain, No Hematochezia, No Melena Genitourinary : No Dysuria, No Urinary Frequency, No Hematuria, Musculoskeletal : No joint pain, No Myalgias, No Joint Swelling Skin : No Skin Lesions, No rash Neuro : No Weakness, No Numbness, No Dizziness, No Headache Psych : No Anxiety/Panic, No Depression, No SI/HI All other systems reviewed and are negative Yes all other systems are reviewed and are negative [facility] Past Medical History Attestation statement: The following information was validated with the patient. Source: old records reviewed and nursing notes reviewed Medical History Abdominal pain Acute UTI Arrhythmia Arthritis AV fistula Bacteremia due to Klebsiella pneumoniae Bipolar 1 disorder Bipolar disorder Bladder cancer Bowel obstruction Breast cancer Bronchopneumonia C. difficile diarrhea Cancer Chronic nausea Chronic respiratory failure COPD (chronic obstructive pulmonary disease) COVID-19 vaccine administered Dialysis patient Diarrhea Dysphagia ESRD (end stage renal disease) ESRD (end stage renal disease) on dialysis History of 2019 novel coronavirus disease (COVID-19) Hx of hypotension Hx of radiation therapy Hydronephrosis Hyperkalemia Hypothyroidism Invasive ductal carcinoma of breast Lab test negative for COVID-19 virus Lab test positive for detection of COVID-19 virus Leukocytosis MSSA bacteremia Paroxysmal A-fib Poor appetite Positive FIT (fecal immunochemical test) Pulmonary emboli Renal failure SBO (small bowel obstruction) Seizure SIRS (systemic inflammatory response syndrome) Thyroid disease Ureteral cancer Vomiting Wears dentures Surgical History History of abdominal surgery History of appendectomy History of back surgery History of bladder surgery (~06/2020) History of cholecystectomy History of esophagogastroduodenoscopy (EGD) History of hand surgery History of lumpectomy of left breast History of lumpectomy of right breast History of tonsillectomy Hx of colonoscopy Hx of foot surgery Family History Family History Father Dementia Mother Bipolar 1 disorder Brother Heart attack Other Mental health disorder Social History Social History Household Members: Spouse Housing: House Are you a primary primary care pediatrician to a significant other at home: No Unable to assess alcohol history related to: Unable to respond Alcohol intake: never Patient Tobacco Use Status: Former Tobacco user Quit Date: 4 years ago Tobacco use type: Cigarette Cigarette Packs Per Day: 1.5 Cigarettes Per Day: 30.0 Years Smoked: 50 e-Cigarette/Vaping Use: Never Used Second Hand Smoke Exposure: No Advance Directives: Yes Advance Directives on File: Yes Advance Directives Date on File: 01/24/21 service: No Current occupational status: retired and disabled Sexual orientation: Straight/Heterosexual Cognitive needs: Yes (Walker/Wheelchair) Hearing needs: No Vision needs: Yes (readng glasses) Physical Exam Vital Signs: Vital Signs: Last Vital Signs Temp 98.2 F 11/30/21 20:05 Pulse 87 11/30/21 20:05 Resp 16 11/30/21 20:05 BP 90/48 L 11/30/21 20:05 Pulse Ox 93 11/30/21 20:05 BMI result Body Mass Index 20.5 VSS Appearance: Alert.? Oriented X3.? No acute distress.? Head: Normocephalic, atraumatic, no step-offs or deformities Eyes: Pupils equal, round and reactive to light.? ENT: Pharynx normal.? Neck: Normal inspection.? Neck supple.? CVS: Normal heart rate and rhythm.? Pulses normal.? Respiratory: No respiratory distress.? Breath sounds normal.? Abdomen: Soft and nontender.? Skin: Skin warm and dry.? Normal skin color.? Normal skin turgor.? Extremities: No lower extremity edema.? No calf ttp. 5/5 strength to bilateral upper and lower extremities Back: No midline tenderness, no C-spine tenderness, full range of motion, no CVA tenderness bilaterally Neuro: Oriented X 3.? No motor deficit.? No sensory deficit. CN 2-12 intact Course Reevaluation(s) Reevaluation #1: CBC appears to be around patient's baseline she is noted to have a baseline anemia. Denies rectal bleeding hematemesis. Patient's sodium slightly elevated. She does have an anion gap likely secondary to chronic renal failure. BUN 70, creatinine 7.79. She did miss her dialysis today and finished her dialysis early on Friday. Her potassium is within normal limits. EKG nonischemic. Reached out to nephro waiting for call back. Time: 20:12 Reevaluation #2: Dr. Cagle recommends admission w/ dialysis tomorrow and D5 att 100/hr 1L. Time: 21:44 Reevaluation #3: Hospitalist will admit patient. Time: 22:03 MDM - Psych MDM Narrative Medical decision making narrative: 1814 76 yo f pmhx bladder ca, breast ca, anemia, ESRD on dialysis (M,W,F), bipolar d/o, hypothyroidism, paroxismal a-fib presents w/ erratic behavior at home x4 days according to . also notes that patient missed dialysis today and finished 2 hours early on friday due to being disruptive at the facility. Patient has no complaints. Denies SI and HI. Noted upon chart review patient was hospitalized here to inpatient Psychiatry from 11/14/2021 to 11/23/2021 with bipolar disorder. Physical examination benign Plan at this time medical clearance. Will rule out electrolyte abnormalities. Will also obtain an EKG. N consult Medical Records Attestation: I reviewed the patient's medical records. Lab Data Attestation: I reviewed the patient's lab results. Result diagrams: 11/30/21 19:27 11/30/21 19:27 Labs: Lab Results 11/30/21 11/30/21 11/30/21 Range/Units 19:27 19:27 19:27 WBC 8.1 (4.8-10.8) X10*3/uL RBC 2.44 L (4.20-5.50) X10*6/uL Hgb 7.5 L (12.0-16.0) g/dl Hct 24.0 L (37.0-47.0) % MCV 98.4 H (80.0-98.0) fL MCH 30.7 (27.0-33.0) pg MCHC 31.3 (31.0-35.0) g/dl RDW 16.1 H (11.0-16.0) % Plt Count 203 (160-400) X10*3/uL MPV 9.6 (9.4-12.3) fL Immature Gran % (Auto) 0.5 H (0.0-0.4) % Neut % (Auto) 67.1 (45-73) % Lymph % (Auto) 13.4 L (20-40) % [place] % (Auto) 11.5 H (2-11) % Eos % (Auto) 7.1 H (0-4) % Baso % (Auto) 0.4 (0-2) % Lymph # (Auto) 1.1 L (1.2-4.9) X10*3/uL [place] # (Auto) 0.9 (0.1-1.2) X10*3/uL Eos # (Auto) 0.6 H (0.0-0.4) X10*3/uL Baso # (Auto) 0.0 (0.0-0.2) X10*3/uL Abs Immat Gran (auto) 0.04 H (0.00-0.03) X10*3/uL Absolute Neuts (auto) 5.5 (2.0-8.3) x10*3/uL Absolute Nucleated RBC 0.000 (0.0-0.012) X10*3/uL Nucleated RBC % (auto) 0.0 (0.0-0.2) /100WBC Sodium 148 H (135-145) mmol/L Potassium 3.6 D (3.3-5.1) mmol/L Chloride 108 (96-108) mmol/L Carbon Dioxide 21 L (22-29) mmol/L Anion Gap 23 H (12-20) BUN 70 H D (9-16) mg/dL Creatinine 7.79 H* (0.5-1.4) mg/dL Estim Creat Clear Calc 5.2 Estimated GFR 5 Random Glucose 107 (60-115) mg/dL Calcium 8.7 D (8.4-10.2) mg/dL Magnesium 1.8 (1.6-2.6) mg/dL Total Bilirubin 0.5 (0.0-1.0) mg/dL AST 13 (5-31) U/L ALT 13 (0-31) U/L Alkaline Phosphatase 130 H (39-117) U/L Total Protein 5.9 L (6.5-8.0) g/dL Albumin 3.2 L (3.5-5.0) g/dL Ethyl Alcohol mg/dL COVID-19 ([facility]) Negative (Negative) COVID-19 Clin Com See Note 11/30/21 Range/Units 19:27 WBC (4.8-10.8) X10*3/uL RBC (4.20-5.50) X10*6/uL Hgb (12.0-16.0) g/dl Hct (37.0-47.0) % MCV (80.0-98.0) fL MCH (27.0-33.0) pg MCHC (31.0-35.0) g/dl RDW (11.0-16.0) % Plt Count (160-400) X10*3/uL MPV (9.4-12.3) fL Immature Gran % (Auto) (0.0-0.4) % Neut % (Auto) (45-73) % Lymph % (Auto) (20-40) % [place] % (Auto) (2-11) % Eos % (Auto) (0-4) % Baso % (Auto) (0-2) % Lymph # (Auto) (1.2-4.9) X10*3/uL [place] # (Auto) (0.1-1.2) X10*3/uL Eos # (Auto) (0.0-0.4) X10*3/uL Baso # (Auto) (0.0-0.2) X10*3/uL Abs Immat Gran (auto) (0.00-0.03) X10*3/uL Absolute Neuts (auto) (2.0-8.3) x10*3/uL Absolute Nucleated RBC (0.0-0.012) X10*3/uL Nucleated RBC % (auto) (0.0-0.2) /100WBC Sodium (135-145) mmol/L Potassium (3.3-5.1) mmol/L Chloride (96-108) mmol/L Carbon Dioxide (22-29) mmol/L Anion Gap (12-20) BUN (9-16) mg/dL Creatinine (0.5-1.4) mg/dL Estim Creat Clear Calc Estimated GFR Random Glucose (60-115) mg/dL Calcium (8.4-10.2) mg/dL Magnesium (1.6-2.6) mg/dL Total Bilirubin (0.0-1.0) mg/dL AST (5-31) U/L ALT (0-31) U/L Alkaline Phosphatase (39-117) U/L Total Protein (6.5-8.0) g/dL Albumin (3.5-5.0) g/dL Ethyl Alcohol < 10 mg/dL COVID-19 ([facility]) (Negative) COVID-19 Clin Com ECG Data Attestation: I personally reviewed and interpreted this ECG as follows: ECG interpretation date: 11/30/21 ECG interpretation time: 20:34 Prior ECG tracings: available for review Interpretation: Ventricular rate of 84, CT normal, QRS normal, QT/QTC normal. EKG shows normal sinus rhythm no ST elevations or inversions concerning for ischemia. No significant changes when compared to EKG from 11/06/2021 Critical Care Time Critical Care Time Critical Care Time: No Discharge Plan Discharge Clinical Impression: Bipolar 1 disorder, ESRD needing dialysis Patient Disposition: Admitted As Inpatient Prescriptions: No Action hydroxyzine pamoate 50 mg capsule 50 mg PO BEDTIME PRN (Reason: for insomnia) Qty: 90 1RF lamotrigine 150 mg tablet 150 mg PO BEDTIME 0RF clonazepam 1 mg tablet 1 mg PO BEDTIME 0RF acetaminophen 325 mg Tablet 650 mg PO BID PRN (Reason: Pain (Scale Score 1-3)) 0RF sevelamer carbonate 800 mg tablet 1,600 mg PO TIDWM 0RF tamoxifen 20 mg tablet 20 mg PO DAILY@1400 0RF Multaq 400 mg tablet 1 tab PO BID 0RF midodrine 5 mg Tablet 5 mg PO BID Qty: 60 0RF benzonatate 100 mg Capsule 100 mg PO TID Qty: 20 0RF clozapine 100 mg tablet 200 mg PO BEDTIME 0RF melatonin 3 mg Tablet 6 mg PO DAILY PRN (Reason: Insomnia) 0RF levothyroxine 150 mcg tablet 1 tab PO DAILY 0RF albuterol sulfate 90 mcg/actuation Hfa Aerosol Inhaler 2 puff INHALATION Q4-6H PRN (Reason: Wheezing) 0RF Anoro Ellipta 62.5-25 mcg/actuation blister with device 1 puff inhalation DAILY 0RF olanzapine 5 mg tablet 1 tab PO BEDTIME 0RF clozapine 25 mg tablet 2 tab PO BID 0RF Rx Instructions: takes at 1000 and 1800 hydrocortisone 2.5 % cream 1 appl topical BID PRN (Reason: skin irritation) Qty: 20 0RF Eliquis 2.5 mg tablet 2.5 mg PO BID 0RF
--- NOTE | 2021-11-30 18:55 | PHA.MEDREC ---
Pharmacy Consult ? Medication Reconciliation Pharmacy has completed the medication reconciliation. Spoke with patients who stated she took all of her morning medications. Her clozapine dose changed yesterday to 200 mg at bedtime, 50 mg at 1000 and 50 mg at 1800. The patient also was recently prescribed olanzapine and took her first dose today.
--- NOTE | 2021-11-30 19:05 | PC.NURSE ---
Pt resting, sitter at bedside, Pt needs met, safety maintained, this RN continues to monitor.
[2021-11-30 19:33] LABS: MANUAL DIFF FLAG NO
[2021-11-30 19:35] LABS: Basophils Percent Auto 0.4 % (0-2); Eosinophils Absolute Auto 0.6 X10*3/uL (0.0-0.4); Eosinophils Percent Auto 7.1 % (0-4); Hemoglobin 7.5 g/dl (12.0-16.0); Imm Gran Abs Auto 0.04 X10*3/uL (0.00-0.03); Imm Gran Pct Auto 0.5 % (0.0-0.4); Lymphocytes Absolute Auto 1.1 X10*3/uL (1.2-4.9); Lymphocytes Percent Auto 13.4 % (20-40); Mean Corpuscular HGB Conc 31.3 g/dl (31.0-35.0); Mean Corpuscular Hemoglobin 30.7 pg (27.0-33.0); Mean Corpuscular Volume 98.4 fL (80.0-98.0); Mean Platelet Volume 9.6 fL (9.4-12.3); Monocytes Absolute Auto 0.9 X10*3/uL (0.1-1.2); Monocytes Percent Auto 11.5 % (2-11); Neutrophils Absolute Auto 5.5 x10*3/uL (2.0-8.3); Neutrophils Percent Auto 67.1 % (45-73); Platelet Count 203 X10*3/uL (160-400); Red Blood Count 2.44 X10*6/uL (4.20-5.50); Red Cell Distribution Width 16.1 % (11.0-16.0); White Blood Count 8.1 X10*3/uL (4.8-10.8)
[2021-11-30 19:54] LABS: COVID-19 Test Negative (Negative); Ethanol < 10 mg/dL
[2021-11-30 20:05] VITALS: BP 90/48; PULSE 87; RESP 16; TEMP 36.8; O2SAT 93
[2021-11-30 20:07] LABS: Alanine Aminotransferase 13 U/L (0-31); Albumin Level 3.2 g/dL (3.5-5.0); Alkaline Phosphatase 130 U/L (39-117); Anion Gap 23 (12-20); Aspartate Amino Transferase 13 U/L (5-31); Bilirubin Total 0.5 mg/dL (0.0-1.0); Blood Urea Nitrogen 70 mg/dL (9-16); Calcium 8.7 mg/dL (8.4-10.2); Carbon Dioxide 21 mmol/L (22-29); Chloride 108 mmol/L (96-108); Creatinine Clr Calc Pharmacy 5.2; Estimated Glomerular Filt Rate 5; Glucose Random 107 mg/dL (60-115); Potassium 3.6 mmol/L (3.3-5.1); Sodium 148 mmol/L (135-145); Total Protein 5.9 g/dL (6.5-8.0)
[2021-11-30 20:24] LABS: Magnesium 1.8 mg/dL (1.6-2.6)
--- NOTE | 2021-11-30 21:44 | ECG_ITS ---
Test Reason : CHEST PAIN Blood Pressure : / mmHG Vent. Rate : 089 BPM Atrial Rate : 089 BPM P-R Int : 164 ms QRS Dur : 090 ms QT Int : 386 ms P-R-T Axes : 062 045 053 degrees QTc Int : 469 ms Normal sinus rhythm Normal ECG When compared with ECG of 30-NOV-2021 18:13, No significant change was found Referred By: Aguila Ramos Electronically Signed By:LINWOOD LINDSEY MD
--- NOTE | 2021-11-30 22:23 | P.HPHOSP_ITS ---
History of Present Illness Date of Service: 11/30/21 Chief Complaint: Agitation 76-year-old female with a past medical history of hypertension, hyperlipidemia, atrial fibrillation, ESRD on hemodialysis, hypothyroidism, anxiety, depression, bipolar with manic episodes, history of pulmonary embolism, history of SBO, seizures, COPD, history of ESBL E coli UTI; presented to the hospital with a chief complaint of agitation/tawny. Reportedly patient has been agitated at home and was not able to be sent to the hemodialysis session today. Suggested to go to the ER for further evaluation. Also mentioned that patient has not completed her hemodialysis session on last Friday. Denied patient complaining of fever chills cough chest pain palpitations lightheadedness dizziness or urinary complaints. Review of all other systems is negative except mentioned above ER course: Per ER team patient noted to be agitated; on labs noted to have elevated creatinine and BUN 60 to missed hemodialysis session. Also noted to have elevated sodium of 148. Discussed with Nephrology Dr. Cagle who suggested admission to the hospital for possible hemodialysis in the morning. [facility] Medical History Abdominal pain Acute UTI Arrhythmia Arthritis AV fistula Bacteremia due to Klebsiella pneumoniae Bipolar 1 disorder Bipolar disorder Bladder cancer Bowel obstruction Breast cancer Bronchopneumonia C. difficile diarrhea Cancer Chronic nausea Chronic respiratory failure COPD (chronic obstructive pulmonary disease) COVID-19 vaccine administered Dialysis patient Diarrhea Dysphagia ESRD (end stage renal disease) ESRD (end stage renal disease) on dialysis History of 2018 novel coronavirus disease (COVID-19) Hx of hypotension Hx of radiation therapy Hydronephrosis Hyperkalemia Hypothyroidism Invasive ductal carcinoma of breast Lab test negative for COVID-19 virus Lab test positive for detection of COVID-19 virus Leukocytosis MSSA bacteremia Paroxysmal A-fib Poor appetite Positive FIT (fecal immunochemical test) Pulmonary emboli Renal failure SBO (small bowel obstruction) Seizure SIRS (systemic inflammatory response syndrome) Thyroid disease Ureteral cancer Vomiting Wears dentures Family History Father Dementia Mother Bipolar 1 disorder Brother Heart attack Other Mental health disorder Surgical History History of abdominal surgery History of appendectomy History of back surgery History of bladder surgery (~06/2020) History of cholecystectomy History of esophagogastroduodenoscopy (EGD) History of hand surgery History of lumpectomy of left breast History of lumpectomy of right breast History of tonsillectomy Hx of colonoscopy Hx of foot surgery Social History Household Members: Spouse Housing: House Are you a primary director of career resources to a significant other at home: No Unable to assess alcohol history related to: Unable to respond Alcohol intake: never Patient Tobacco Use Status: Former Tobacco user Quit Date: 4 years ago Tobacco use type: Cigarette Cigarette Packs Per Day: 1.5 Cigarettes Per Day: 30.0 Years Smoked: 50 e-Cigarette/Vaping Use: Never Used Second Hand Smoke Exposure: No Advance Directives: Yes Advance Directives on File: Yes Advance Directives Date on File: 01/24/21 service: No Current occupational status: retired and disabled Sexual orientation: Straight/Heterosexual Cognitive needs: Yes (Walker/Wheelchair) Hearing needs: No Vision needs: Yes (readng glasses) Meds Allergies Allergy/AdvReac Type Severity Reaction Status Date / Time adhesive tape Allergy Intermediate Blister Verified 11/13/21 21:04 aspirin Allergy Intermediate RASH Verified 11/13/21 21:04 benztropine Allergy Intermediate RASH Verified 11/13/21 21:04 NSAIDS (Non-Steroidal Allergy Intermediate RASH Verified 11/13/21 21:04 Anti-Inflamma ziprasidone Allergy Intermediate UNKNOWN Verified 11/13/21 21:04 doxycycline AdvReac Vomiting Verified 11/13/21 21:04 oxycodone AdvReac Anaphylaxis Verified 11/13/21 21:04 Active Medications: Current Medications Acetaminophen (Acetaminophen 325 Mg Tablet) 650 mg PO BID PRN PRN Reason: Pain (Scale Score 1-3) Albuterol Sulfate (Albuterol Sulfate 90 Mcg 8 Gm Inhaler) 2 puff INHALE RQ4H PRN PRN Reason: Wheezing Apixaban (Apixaban 2.5 Mg Tablet) 2.5 mg PO BID [place] Benzonatate (Benzonatate 100 Mg Capsule) 100 mg PO TID [place] Clonazepam (Clonazepam 1 Mg Tablet) 1 mg PO BEDTIME [place] Clozapine (Clozapine 25 Mg Tablet) 50 mg PO BID [place] Clozapine (Clozapine 100 Mg Tablet) 200 mg PO BEDTIME [place] Dronedarone (Dronedarone Hcl 400 Mg Tablet) 400 mg PO BID [facility] Hydroxyzine HCl (Hydroxyzine Hcl 50 Mg Tablet) 50 mg PO BEDTIME PRN PRN Reason: for insomnia Lamotrigine (Lamotrigine 25 Mg Tablet) 150 mg PO BEDTIME [facility] Levothyroxine Sodium (Levothyroxine Sodium 150 Mcg Tablet) 150 mcg PO DAILY [facility] Melatonin (Melatonin 3 Mg Tablet) 6 mg PO DAILY PRN PRN Reason: Insomnia Midodrine (Midodrine Hcl 5 Mg Tablet) 5 mg PO BID [facility] Non-Formulary Medication (Hydrocortisone) 1 appl TOPICAL BID PRN PRN Reason: skin irritation Non-Formulary Medication (Umeclidinium-Vilanterol [Anoro Ellipta]) 1 puff INHALE DAILY [facility] Olanzapine (Olanzapine 5 Mg Tablet) 5 mg PO BEDTIME [facility] Pharmacy Consult (Consult Rx Perform Med Rec) 1 each MISCELLANE ONCE PRN PRN Reason: Consult order Sevelamer Carbonate (Sevelamer Carbonate Tablet 800 Mg Tablet) 1,600 mg PO TIDWM [facility] Tamoxifen Citrate (Tamoxifen Citrate 10 Mg Tablet) 20 mg PO DAILY@1400 [facility] Home Medications Medication Instructions Recorded Confirmed Last Taken Type clonazepam 1 mg tablet 1 mg PO BEDTIME 05/21/20 11/30/21 07/14/21 History lamotrigine 150 mg tablet 150 mg PO BEDTIME 05/21/20 11/30/21 10/18/21 History acetaminophen 325 mg tablet 650 mg PO BID PRN 05/22/20 11/30/21 03/19/21 History tamoxifen 20 mg tablet 20 mg PO DAILY@1400 07/15/21 11/30/21 10/19/21 09:00 History apixaban 2.5 mg tablet (Eliquis) 2.5 mg PO BID 09/03/21 11/30/21 11/30/21 History sevelamer carbonate 800 mg tablet 1,600 mg PO TIDWM tab 09/27/21 11/30/21 11/30/21 History dronedarone 400 mg tablet (Multaq) 1 tab PO BID 10/20/21 11/30/21 11/30/21 History albuterol sulfate 90 mcg/actuation 2 puff INHALATION Q4-6H PRN 11/01/21 11/30/21 Unknown History aerosol inhaler clozapine 100 mg tablet 200 mg PO BEDTIME 11/01/21 11/30/21 Unknown History levothyroxine 150 mcg tablet 1 tab PO DAILY 11/01/21 11/30/21 11/30/21 History melatonin 3 mg tablet 6 mg PO DAILY PRN 11/01/21 11/30/21 Unknown History umeclidinium 62.5 mcg-vilanterol 1 puff INHALATION DAILY 11/01/21 11/30/21 Unknown History 25 mcg/actuation powdr for inhalation (Anoro Ellipta) clozapine 25 mg tablet 2 tab PO BID 11/30/21 11/30/21 11/30/21 History olanzapine 5 mg tablet 1 tab PO BEDTIME 11/30/21 11/30/21 11/30/21 History Physical Exam Vital Signs and Narrative: Vital Signs: Last Vital Signs Temp 98.2 F 11/30/21 20:05 Pulse 87 11/30/21 20:05 Resp 16 11/30/21 20:05 BP 90/48 L 11/30/21 20:05 Pulse Ox 93 11/30/21 20:05 BMI result Body Mass Index 20.5 Gen: Appears be in no acute distress HEENT: NCAT, Moist mucosa. Pulmonary: Vesicular breath sounds, fair air entry CVS: Normal S1-S2 Abdomen: BS+, Soft, Nontender Extremities: Warm well perfused Neuro: Alert and awake. Results Labs CBC and Chem 7: 11/30/21 19:27 11/30/21 19:27 Labs: Laboratory Results - last 24 hr 11/30/21 11/30/21 11/30/21 19:27 19:27 19:27 MCV 98.4 H MCH 30.7 MCHC 31.3 RDW 16.1 H Plt Count 203 MPV 9.6 Immature Gran % (Auto) 0.5 H Neut % (Auto) 67.1 Lymph % (Auto) 13.4 L [place] % (Auto) 11.5 H Eos % (Auto) 7.1 H Baso % (Auto) 0.4 Lymph # (Auto) 1.1 L [place] # (Auto) 0.9 Eos # (Auto) 0.6 H Baso # (Auto) 0.0 Abs Immat Gran (auto) 0.04 H Absolute Neuts (auto) 5.5 Absolute Nucleated RBC 0.000 Nucleated RBC % (auto) 0.0 Anion Gap 23 H Estim Creat Clear Calc 5.2 Estimated GFR 5 Random Glucose 107 Calcium 8.7 D Magnesium 1.8 Total Bilirubin 0.5 AST 13 ALT 13 Alkaline Phosphatase 130 H Total Protein 5.9 L Albumin 3.2 L Ethyl Alcohol COVID-19 ([facility]) Negative COVID-19 Clin Com See Note 11/30/21 19:27 MCV MCH MCHC RDW Plt Count MPV Immature Gran % (Auto) Neut % (Auto) Lymph % (Auto) [place] % (Auto) Eos % (Auto) Baso % (Auto) Lymph # (Auto) [place] # (Auto) Eos # (Auto) Baso # (Auto) Abs Immat Gran (auto) Absolute Neuts (auto) Absolute Nucleated RBC Nucleated RBC % (auto) Anion Gap Estim Creat Clear Calc Estimated GFR Random Glucose Calcium Magnesium Total Bilirubin AST ALT Alkaline Phosphatase Total Protein Albumin Ethyl Alcohol < 10 COVID-19 ([facility]) COVID-19 Clin Com Assessment and Plan (1) ESRD needing dialysis: Status: Acute (2) Bipolar 1 disorder: Status: Acute (3) Agitation: Status: Acute Plan 76-year-old female with a past medical history of hypertension, hyperlipidemia, atrial fibrillation, ESRD on hemodialysis, hypothyroidism, anxiety, depression, bipolar with manic episodes, history of pulmonary embolism, history of SBO, seizures, COPD, history of ESBL E coli UTI; presented to the hospital with a chief complaint of agitation/tawny. Agitation/tawny: Patient had similar presentations recently. After being medically cleared patient was admitted to the psychiatric team and was discharged on 11/23/2021. Patient was on clozapine for control of tawny. Also noted to have chronic delusions. Will re-consult Psychiatry for further recommendations Continue home clozapine 200 mg at bedtime, clozapine 50 mg b.i.d., clonazepam 1 mg at bedtime, lamotrigine 150 mg at bedtime, olanzapine 1 tablet at bedtime ESRD: Patient missed hemodialysis today. Last hemodialysis was on Friday and was interpreted after finishing have the cords as patient was agitated. Creatinine BUN elevated. Nephrology was notified-Dr. Cagle mentioned possible hemodialysis in the morning. Continue home sevelamer Hypernatremia: Patient started on D5 water per Nephrology recommendations. History of orthostatic hypotension: Patient on midodrine 5 mg b.i.d.. History of hypothyroidism: Patient on levothyroxine 150 mcg currently History of paroxysmal AFib: Continue home Eliquis, dronedarone. History of breast cancer: Continue home tamoxifen DVT prophylaxis: Patient on Eliquis Code status: Full code Quality Stroke Does the patient have a stroke diagnosis?: No VTE Prior VTE?: No VTE Risk Level:: Medical - moderate - high VTE Device Contraindication: Treatment Not Indicated VTE Drug Contraindication: N/A - Med Ordered
--- NOTE | 2021-11-30 23:00 | PC.NURSE ---
Pt resting, sitter at bedside, safety maintained, this RN continues to monitor.
--- NOTE | 2021-12-01 05:39 | PC.NURSE ---
Pt sleeping, chest rise and fall observed, Call light in reach, this RN continues to monitor.
[2021-12-01 05:40] LABS: MANUAL DIFF FLAG NO
[2021-12-01 05:43] LABS: Basophils Absolute Auto 0.1 X10*3/uL (0.0-0.2); Basophils Percent Auto 0.6 % (0-2); Eosinophils Absolute Auto 0.7 X10*3/uL (0.0-0.4); Eosinophils Percent Auto 7.7 % (0-4); Hematocrit 23.8 % (37.0-47.0); Hemoglobin 7.5 g/dl (12.0-16.0); Imm Gran Abs Auto 0.04 X10*3/uL (0.00-0.03); Imm Gran Pct Auto 0.4 % (0.0-0.4); Lymphocytes Absolute Auto 1.1 X10*3/uL (1.2-4.9); Lymphocytes Percent Auto 12.6 % (20-40); Mean Corpuscular HGB Conc 31.5 g/dl (31.0-35.0); Mean Corpuscular Hemoglobin 30.9 pg (27.0-33.0); Mean Corpuscular Volume 97.9 fL (80.0-98.0); Mean Platelet Volume 9.8 fL (9.4-12.3); Monocytes Percent Auto 10.7 % (2-11); Neutrophils Absolute Auto 6.1 x10*3/uL (2.0-8.3); Platelet Count 223 X10*3/uL (160-400); Red Blood Count 2.43 X10*6/uL (4.20-5.50); Red Cell Distribution Width 16.3 % (11.0-16.0); White Blood Count 8.9 X10*3/uL (4.8-10.8)
[2021-12-01 05:57] LABS: Anion Gap 24 (12-20); Blood Urea Nitrogen 76 mg/dL (9-16); Calcium 9.1 mg/dL (8.4-10.2); Carbon Dioxide 17 mmol/L (22-29); Chloride 107 mmol/L (96-108); Creatinine Clr Calc Pharmacy 5.2; Estimated Glomerular Filt Rate 5; Glucose Random 85 mg/dL (60-115); Sodium 143 mmol/L (135-145)
[2021-12-01 07:51] VITALS: BP 127/60; PULSE 89; RESP 12; TEMP 37.3; O2SAT 91
--- NOTE | 2021-12-01 08:22 | PC.NURSE ---
pt requesting bad fleming to have BM. when placing pt on bed fleming pt had large BM of semi-formed stool. pt cleaned and linens changed
--- NOTE | 2021-12-01 09:12 | P.CNPS_ITS ---
History of Present Illness Date of Service: 12/01/2021 Chief Complaint: ESRD/agitation Reason for Consult: Agitation-Medication consult Requesting physician: Jorgito Murillo Discussed with referring provider: Yes (text) Sources of Information: patient interviewed and chart reviewed HPI Narrative: 76 yo female, history of bipolar disorder, agitation, anxiety, depression, ESRD currently on hemodialysis, hypothyroidism, hx of seizure, COPD, HTN, HLD, Atril Fibrillation, hx of pulmonary emboli, hx of small bowel obstruction, hx of UTI. Consult request to review medications for agitation/ sx mgt. Met with pt who is newly admitted, resting comfortably but reporting anxiety. Listen, my plane leaves for [place] at 2pm. You can come with me, but you cannot make me miss that plane. I am going to be living there. You will like it I am sure. Pt reports she became agitated at home. She reports refusing dialysis because, at 76, you should never need to have to go through that. . Reports she was attempting to get her partners attention, threw an object, and broke a window. States this was an accident, not an intentional act of destruction. Reports feeling tired, reports feeling overwhelmed with all she has to do to move to [place]. Past Psychiatric History: -Hx of multiple inpatient psych admissions at [facility] dating back to 2013, 2014, 2017, and 2019 for manic sx, psychosis. Pt has hx of stabilization on clozapine and lamictal, previously on clozapine 300 mg and lamictal 300 mg with good effect. Of note, pt has a hx of significant medical problems, which often leads to decompensation. -Past meds: restoril, klonopin, wellbutrin, lithium (had been stable on this for many years and stable, however developed renal failure and most recently stable on clozapine), zyprexa. Medical Evaluation Reviewed: Yes Personal & Social History: Not asked as pt requested a brief interview- Look, I am in no mood to answer a lot of questions-make it quick and go. Review of Systems Review of Systems Yes Unobtainable due to mental status Constitutional: Reports body ache(s), Reports excessive sweating and Reports weight loss Eyes: Reports no additional eye complaints Cardiovascular: Reports no additional cardiovascular complaints Respiratory: Reports no additional respiratory complaints Gastrointestinal: Reports no additional gastrointestinal complaints Genitourinary: Reports no additional female genitourinary complaints Musculoskeletal: Reports no additional musculoskeletal complaints Reports behavioral changes, Reports confusion and Reports memory loss Psychiatric: Reports abnormal sleep pattern, Reports anxiety, Reports behavioral changes, Reports confusion, Reports depression, Reports difficulty concentrating, Reports auditory hallucinations (denies), Reports irritability, Reports anhedonia, Reports memory loss, Reports mood swings, Reports paranoia and Reports suicidal ideation (denies) Endocrine: Reports excessive sweating [facility] Medical History Abdominal pain Acute UTI Arrhythmia Arthritis AV fistula Bacteremia due to Klebsiella pneumoniae Bipolar 1 disorder Bipolar disorder Bladder cancer Bowel obstruction Breast cancer Bronchopneumonia C. difficile diarrhea Cancer Chronic nausea Chronic respiratory failure COPD (chronic obstructive pulmonary disease) COVID-19 vaccine administered Dialysis patient Diarrhea Dysphagia ESRD (end stage renal disease) ESRD (end stage renal disease) on dialysis History of 2018 novel coronavirus disease (COVID-19) Hx of hypotension Hx of radiation therapy Hydronephrosis Hyperkalemia Hypothyroidism Invasive ductal carcinoma of breast Lab test negative for COVID-19 virus Lab test positive for detection of COVID-19 virus Leukocytosis MSSA bacteremia Paroxysmal A-fib Poor appetite Positive FIT (fecal immunochemical test) Pulmonary emboli Renal failure SBO (small bowel obstruction) Seizure SIRS (systemic inflammatory response syndrome) Thyroid disease Ureteral cancer Vomiting Wears dentures Surgical History History of abdominal surgery History of appendectomy History of back surgery History of bladder surgery (~06/2020) History of cholecystectomy History of esophagogastroduodenoscopy (EGD) History of hand surgery History of lumpectomy of left breast History of lumpectomy of right breast History of tonsillectomy Hx of colonoscopy Hx of foot surgery Family History: Denies Social History: , lives with her , good social support. Trauma History: Denies Diagnostics Vital Signs (24Hr): Vital Signs - 24 hr 11/30/21 15:49 11/30/21 18:05 11/30/21 20:05 Temperature 97.6 F 97.8 F 98.2 F Pulse Rate 86 82 87 Respiratory Rate 20 18 16 Blood Pressure 100/53 L 114/54 L 90/48 L Pulse Oximetry 95 95 93 12/01/21 07:51 Temperature 99.1 F Pulse Rate 89 Respiratory Rate 12 Blood Pressure 127/60 Pulse Oximetry 91 L BMI result Body Mass Index 20.5 Labs Results: 12/01/21 05:25 12/01/21 05:25 Labs: Laboratory Results - last 48 hr 11/30/21 11/30/21 11/30/21 19:27 19:27 19:27 WBC 8.1 RBC 2.44 L Hgb 7.5 L Hct 24.0 L MCV 98.4 H MCH 30.7 MCHC 31.3 RDW 16.1 H Plt Count 203 MPV 9.6 Immature Gran % (Auto) 0.5 H Neut % (Auto) 67.1 Lymph % (Auto) 13.4 L [place] % (Auto) 11.5 H Eos % (Auto) 7.1 H Baso % (Auto) 0.4 Lymph # (Auto) 1.1 L [place] # (Auto) 0.9 Eos # (Auto) 0.6 H Baso # (Auto) 0.0 Abs Immat Gran (auto) 0.04 H Absolute Neuts (auto) 5.5 Absolute Nucleated RBC 0.000 Nucleated RBC % (auto) 0.0 Sodium 148 H Potassium 3.6 D Chloride 108 Carbon Dioxide 21 L Anion Gap 23 H BUN 70 H D Creatinine 7.79 H* Estim Creat Clear Calc 5.2 Estimated GFR 5 Random Glucose 107 Calcium 8.7 D Magnesium 1.8 Total Bilirubin 0.5 AST 13 ALT 13 Alkaline Phosphatase 130 H Total Protein 5.9 L Albumin 3.2 L Ethyl Alcohol COVID-19 (PARTH) Negative COVID-19 Clin Com See Note 11/30/21 12/01/21 12/01/21 19:27 05:25 05:25 WBC 8.9 RBC 2.43 L Hgb 7.5 L Hct 23.8 L MCV 97.9 MCH 30.9 MCHC 31.5 RDW 16.3 H Plt Count 223 MPV 9.8 Immature Gran % (Auto) 0.4 Neut % (Auto) 68.0 Lymph % (Auto) 12.6 L [place] % (Auto) 10.7 Eos % (Auto) 7.7 H Baso % (Auto) 0.6 Lymph # (Auto) 1.1 L [place] # (Auto) 1.0 Eos # (Auto) 0.7 H Baso # (Auto) 0.1 Abs Immat Gran (auto) 0.04 H Absolute Neuts (auto) 6.1 Absolute Nucleated RBC 0.000 Nucleated RBC % (auto) 0.0 Sodium 143 Potassium 5.0 D Chloride 107 Carbon Dioxide 17 L Anion Gap 24 H BUN 76 H Creatinine 7.82 H* Estim Creat Clear Calc 5.2 Estimated GFR 5 Random Glucose 85 Calcium 9.1 Magnesium Total Bilirubin AST ALT Alkaline Phosphatase Total Protein Albumin Ethyl Alcohol < 10 COVID-19 (PARTH) COVID-19 Clin Com Mental Status Exam Mental Status Exam Patient Appearance: Fatigued Patient Orientation: Person and Place Level of Consciousness: Alert Patient Behavior: Talkative, Anxious, Fatigued, Distractible and Good Eye Contact Mood Description: Hostile, Anxious, Labile and Apprehensive Affect Description: Labile Patient Cognition Impaired: Yes Ability to Follow Directions: Fair Speech Pattern: Spontaneous Speech and Rambling Memory Description: Remote Impaired and Episodic Impaired Hallucinations: None (denies) Delusions: Paranoid Ideation Thought Process: Disoriented, Illogical and Distracted Thought Content: positive for Perseveration and positive for Suicidal Ideation (denies) Depressive Symptoms: Increased Anxiety, Increased Irritability and Difficulty Concentrating Abnormal Motor Activity Signs and Symptoms: Agitation Judgement: Poor Medications Medications Current Medications Acetaminophen (Acetaminophen 325 Mg Tablet) 650 mg PO BID PRN PRN Reason: Pain (Scale Score 1-3) Albuterol Sulfate (Albuterol Sulfate 90 Mcg 8 Gm Inhaler) 2 puff INHALE RQ4H PRN PRN Reason: Wheezing Apixaban (Apixaban 2.5 Mg Tablet) 2.5 mg PO BID [facility] Benzonatate (Benzonatate 100 Mg Capsule) 100 mg PO TID [facility] Clonazepam (Clonazepam 1 Mg Tablet) 1 mg PO BEDTIME [facility] Clozapine (Clozapine 25 Mg Tablet) 50 mg PO BID@1000,1800 [facility] Clozapine (Clozapine 100 Mg Tablet) 200 mg PO BEDTIME [facility] Dronedarone (Dronedarone Hcl 400 Mg Tablet) 400 mg PO BID [facility] Hydrocortisone (Hydrocortisone 1 % Cream 28.35 Gm Tube) 1 appl TOPICAL BID PRN PRN Reason: skin irritation Hydroxyzine HCl (Hydroxyzine Hcl 50 Mg Tablet) 50 mg PO BEDTIME PRN PRN Reason: for insomnia Lamotrigine (Lamotrigine 25 Mg Tablet) 150 mg PO BEDTIME [facility] Levothyroxine Sodium (Levothyroxine Sodium 150 Mcg Tablet) 150 mcg PO DAILY [facility] Melatonin (Melatonin 3 Mg Tablet) 6 mg PO BEDTIME PRN PRN Reason: Insomnia Midodrine (Midodrine Hcl 5 Mg Tablet) 5 mg PO BID [facility] Non-Formulary Medication (Umeclidinium-Vilanterol [Anoro Ellipta]) 1 puff INHALE DAILY [facility] Olanzapine (Olanzapine 5 Mg Tablet) 5 mg PO BEDTIME [facility] Pharmacy Consult (Consult Rx Perform Med Rec) 1 each MISCELLANE ONCE PRN PRN Reason: Consult order Senna (Sennosides 8.6 Mg Tablet) 17.2 mg PO BEDTIME PRN PRN Reason: Constipation Sevelamer Carbonate (Sevelamer Carbonate Tablet 800 Mg Tablet) 1,600 mg PO TIDWM [facility] Sodium Chloride (0.9 % Sodium Chloride Flush 3 Ml Syringe) 3 ml IVFLUSH QSHIFT [facility] Last Admin: 12/01/21 07:58 Dose: Not Given Documented by: Tamoxifen Citrate (Tamoxifen Citrate 10 Mg Tablet) 20 mg PO DAILY@1400 [facility] Allergies Allergies Allergy/AdvReac Type Severity Reaction Status Date / Time adhesive tape Allergy Intermediate Blister Verified 11/13/21 21:04 aspirin Allergy Intermediate RASH Verified 11/13/21 21:04 benztropine Allergy Intermediate RASH Verified 11/13/21 21:04 NSAIDS (Non-Steroidal Allergy Intermediate RASH Verified 11/13/21 21:04 Anti-Inflamma ziprasidone Allergy Intermediate UNKNOWN Verified 11/13/21 21:04 doxycycline AdvReac Vomiting Verified 11/13/21 21:04 oxycodone AdvReac Anaphylaxis Verified 11/13/21 21:04 Assessment & Plan Assessment & Plan (1) Agitation: Status: Acute Code(s): R45.1 - Restlessness and agitation (2) ESRD needing dialysis: Status: Acute Code(s): N18.6 - End stage renal disease; Z99.2 - Dependence on renal dialysis (3) Bipolar 1 disorder: Status: Acute Code(s): F31.9 - Bipolar disorder, unspecified Plan 76 yo female, presenting with agitation, history of bipolar disorder, recent admit with medication titration, having missed hemodialysis this week. Plan: Increase Olanzapine to 5 mg bid and 5 mg bid prn agitation Clozapine levels to prepare to increase dosing Will follow at your request. I spent minutes with the patient and/or on the patient floor today, greater than?50% of which was spent counseling/coordinating care. Informed Consent: does not understand
--- NOTE | 2021-12-01 09:44 | P.PNIM_ITS ---
Subjective Subjective Date of Service: 12/01/21 Interval History: cc: agitation interval history: wants to go home Cardiovascular Cardiovascular: Reports no additional cardiovascular complaints Respiratory Respiratory: Reports no additional respiratory complaints Physical Exam Vital Signs: Vital Signs: Last Vital Signs Temp 99.1 F 12/01/21 07:51 Pulse 89 12/01/21 07:51 Resp 12 12/01/21 07:51 BP 127/60 12/01/21 07:51 Pulse Ox 91 L 12/01/21 07:51 BMI result Body Mass Index 20.5 General: AO X 3, no acute distress Resp: CTA bilateral, no accessory muscles used CVS: S1,S2,RRR GI: soft, non tender, non distended Neuro: motor grossly intact, alert Psych: appropriate affect, appropriate insight Objective Data Active Medications Acetaminophen (Acetaminophen 325 Mg Tablet) 650 mg PO BID PRN PRN Reason: Pain (Scale Score 1-3) Albuterol Sulfate (Albuterol Sulfate 90 Mcg 8 Gm Inhaler) 2 puff INHALE RQ4H PRN PRN Reason: Wheezing Apixaban (Apixaban 2.5 Mg Tablet) 2.5 mg PO BID [facility] Benzonatate (Benzonatate 100 Mg Capsule) 100 mg PO TID [facility] Clonazepam (Clonazepam 1 Mg Tablet) 1 mg PO BEDTIME [facility] Clozapine (Clozapine 25 Mg Tablet) 50 mg PO BID@1000,1800 [facility] Clozapine (Clozapine 100 Mg Tablet) 200 mg PO BEDTIME [facility] Dronedarone (Dronedarone Hcl 400 Mg Tablet) 400 mg PO BID [facility] Hydrocortisone (Hydrocortisone 1 % Cream 28.35 Gm Tube) 1 appl TOPICAL BID PRN PRN Reason: skin irritation Hydroxyzine HCl (Hydroxyzine Hcl 50 Mg Tablet) 50 mg PO BEDTIME PRN PRN Reason: for insomnia Lamotrigine (Lamotrigine 25 Mg Tablet) 150 mg PO BEDTIME [facility] Levothyroxine Sodium (Levothyroxine Sodium 150 Mcg Tablet) 150 mcg PO DAILY [facility] Melatonin (Melatonin 3 Mg Tablet) 6 mg PO BEDTIME PRN PRN Reason: Insomnia Midodrine (Midodrine Hcl 5 Mg Tablet) 5 mg PO BID [facility] Non-Formulary Medication (Umeclidinium-Vilanterol [Anoro Ellipta]) 1 puff INHALE DAILY [facility] Olanzapine (Olanzapine 5 Mg Tablet) 5 mg PO BEDTIME [facility] Pharmacy Consult (Consult Rx Perform Med Rec) 1 each MISCELLANE ONCE PRN PRN Reason: Consult order Senna (Sennosides 8.6 Mg Tablet) 17.2 mg PO BEDTIME PRN PRN Reason: Constipation Sevelamer Carbonate (Sevelamer Carbonate Tablet 800 Mg Tablet) 1,600 mg PO TIDWM [facility] Sodium Chloride (0.9 % Sodium Chloride Flush 3 Ml Syringe) 3 ml IVFLUSH QSHIFT [facility] Last Admin: 12/01/21 07:58 Dose: Not Given Documented by: JAQUAN Non-Admin Reason: No Access Tamoxifen Citrate (Tamoxifen Citrate 10 Mg Tablet) 20 mg PO DAILY@1400 [facility] Labs CBC & Chem 7: 12/01/21 05:25 12/01/21 05:25 Labs: Laboratory Results - last 24 hr 11/30/21 11/30/21 11/30/21 19:27 19:27 19:27 MCV 98.4 H MCH 30.7 MCHC 31.3 RDW 16.1 H Plt Count 203 MPV 9.6 Immature Gran % (Auto) 0.5 H Neut % (Auto) 67.1 Lymph % (Auto) 13.4 L [place] % (Auto) 11.5 H Eos % (Auto) 7.1 H Baso % (Auto) 0.4 Lymph # (Auto) 1.1 L [place] # (Auto) 0.9 Eos # (Auto) 0.6 H Baso # (Auto) 0.0 Abs Immat Gran (auto) 0.04 H Absolute Neuts (auto) 5.5 Absolute Nucleated RBC 0.000 Nucleated RBC % (auto) 0.0 Anion Gap 23 H Estim Creat Clear Calc 5.2 Estimated GFR 5 Random Glucose 107 Calcium 8.7 D Magnesium 1.8 Total Bilirubin 0.5 AST 13 ALT 13 Alkaline Phosphatase 130 H Total Protein 5.9 L Albumin 3.2 L Ethyl Alcohol COVID-19 ([facility]) Negative COVID-19 Clin Com See Note 11/30/21 12/01/21 12/01/21 19:27 05:25 05:25 MCV 97.9 MCH 30.9 MCHC 31.5 RDW 16.3 H Plt Count 223 MPV 9.8 Immature Gran % (Auto) 0.4 Neut % (Auto) 68.0 Lymph % (Auto) 12.6 L [place] % (Auto) 10.7 Eos % (Auto) 7.7 H Baso % (Auto) 0.6 Lymph # (Auto) 1.1 L [place] # (Auto) 1.0 Eos # (Auto) 0.7 H Baso # (Auto) 0.1 Abs Immat Gran (auto) 0.04 H Absolute Neuts (auto) 6.1 Absolute Nucleated RBC 0.000 Nucleated RBC % (auto) 0.0 Anion Gap 24 H Estim Creat Clear Calc 5.2 Estimated GFR 5 Random Glucose 85 Calcium 9.1 Magnesium Total Bilirubin AST ALT Alkaline Phosphatase Total Protein Albumin Ethyl Alcohol < 10 COVID-19 ([facility]) COVID-19 Clin Com Assessment and Plan (1) Agitation: Status: Acute Plan 76F presented with agitation, missed HD ESRD HD bipolar continue mood stabilizers, psych eval hypoernatremia resolved orthostatic hyoptension midodrine hypothyroid synthroid pafib steven miranda history of breast ca tamoxifen full code reason for continued hospitalization: medically stable, awaiting safe discharge. Quality Stroke Does the patient have a stroke diagnosis?: No VTE Prior VTE?: No VTE Risk Level:: Medical - moderate - high VTE Device Contraindication: Treatment Not Indicated VTE Drug Contraindication: N/A - Med Ordered
[2021-12-01] MEDS: cloZAPine 25 MG TABLET 50 MG PO ×2 (10:54→17:22)
[2021-12-01] MEDS: Apixaban 2.5 MG TABLET PO ×2 (10:55→21:52)
[2021-12-01] MEDS: Dronedarone HCl 400 MG TABLET PO ×2 (10:55→21:52)
[2021-12-01] MEDS: Levothyroxine Sodium 150 MCG TABLET PO (10:55)
[2021-12-01] MEDS: Midodrine HCl 5 MG TABLET PO ×2 (10:55→21:52)
[2021-12-01] MEDS: Sevelamer Carbonate Tablet 800 MG TABLET 1600 MG PO ×3 (10:55→17:22)
[2021-12-01] MEDS: Benzonatate 100 MG CAPSULE PO ×3 (10:55→21:52)
[2021-12-01 11:29] VITALS: BP 123/61; PULSE 81; RESP 17; TEMP 36; O2SAT 92
[2021-12-01] MEDS: Tamoxifen Citrate 10 MG TABLET 20 MG PO (12:30)
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
[2021-12-01 15:15] VITALS: BP 116/55; PULSE 82; RESP 24; TEMP 35.9; O2SAT 92
[2021-12-01] MEDS: diphenhydrAMINE HCL 25 MG TABLET PO (15:28)
[2021-12-01] MEDS: 0.9 % Sodium Chloride Flush 3 ML SYRINGE IVFLUSH (15:31)
[2021-12-01 20:00] VITALS: BP 101/55; PULSE 84; RESP 20; TEMP 37.2; O2SAT 91
[2021-12-01] MEDS: clonazePAM 1 MG TABLET PO (21:52)
[2021-12-01] MEDS: cloZAPine 100 MG TABLET 200 MG PO (21:52)
[2021-12-01] MEDS: OLANZapine 5 MG TABLET PO (21:52)
[2021-12-01] MEDS: lamoTRIgine 25 MG TABLET 150 MG PO (21:53)
[2021-12-01 23:01] VITALS: BP 107/54; PULSE 82; RESP 18; TEMP 37.2; O2SAT 93
[2021-12-02 03:38] VITALS: BP 98/53; PULSE 86; RESP 19; TEMP 36.5; O2SAT 92
[2021-12-02 05:33] LABS: Hematocrit 22.9 % (37.0-47.0); Hemoglobin 7.2 g/dl (12.0-16.0); Mean Corpuscular HGB Conc 31.4 g/dl (31.0-35.0); Mean Corpuscular Hemoglobin 30.8 pg (27.0-33.0); Mean Corpuscular Volume 97.9 fL (80.0-98.0); Mean Platelet Volume 10.2 fL (9.4-12.3); Platelet Count 225 X10*3/uL (160-400); Red Blood Count 2.34 X10*6/uL (4.20-5.50); Red Cell Distribution Width 16.3 % (11.0-16.0); White Blood Count 6.8 X10*3/uL (4.8-10.8)
[2021-12-02 06:32] LABS: Anion Gap 16 (12-20); Blood Urea Nitrogen 46 mg/dL (9-16); Calcium 9.1 mg/dL (8.4-10.2); Carbon Dioxide 21 mmol/L (22-29); Chloride 106 mmol/L (96-108); Creatinine Clr Calc Pharmacy 7.4; Estimated Glomerular Filt Rate 8; Glucose Fasting 83 mg/dL (60-99); Potassium 4.5 mmol/L (3.3-5.1); Sodium 138 mmol/L (135-145)
[2021-12-02 08:00] VITALS: BP 125/60; PULSE 82; RESP 14; TEMP 36.5; O2SAT 92
--- NOTE | 2021-12-02 08:12 | PM.PNNEP ---
Subjective Subjective Date of Service: 12/02/21 Interval history: cc: agitation interval history: wants to go home Physical Exam Vital Signs: Vital Signs: Last Vital Signs Temp 97.7 F 12/02/21 03:38 Pulse 86 12/02/21 03:38 Resp 19 12/02/21 03:38 BP 98/53 L 12/02/21 03:38 Pulse Ox 92 12/02/21 03:38 BMI result Body Mass Index 20.5 Const: General: confusion Orientation/consciousness: confusion Neuro: General: confusion Objective Data Labs CBC & Chem 7: 12/02/21 04:36 12/02/21 04:36 Labs: Laboratory Results - last 24 hr 12/02/21 12/02/21 04:36 04:36 WBC 6.8 RBC 2.34 L Hgb 7.2 L Hct 22.9 L MCV 97.9 MCH 30.8 MCHC 31.4 RDW 16.3 H Plt Count 225 MPV 10.2 Absolute Nucleated RBC 0.000 Nucleated RBC % (auto) 0.0 Sodium 138 Potassium 4.5 Chloride 106 Carbon Dioxide 21 L Anion Gap 16 BUN 46 H Creatinine 5.51 H* Estim Creat Clear Calc 7.4 Estimated GFR 8 Fasting Glucose 83 Calcium 9.1 Procedures Date of Service Date of Service: 12/02/21 Assessment & Plan Assessment and plan (1) Agitation: Status: Acute (2) ESRD needing dialysis: Status: Acute Assessment and Plan: TTHS HD TREATMENT YESTERDAY TOLERATED NEXT HD Plan 76F presented with agitation, missed HD ESRD HD bipolar continue mood stabilizers, psych eval hypoernatremia resolved orthostatic hyoptension midodrine hypothyroid synthroid pafib steven miranda history of breast ca tamoxifen full code reason for continued hospitalization: medically stable, awaiting safe discharge. Progress Note: Quality Stroke Does the patient have a stroke diagnosis?: No
--- NOTE | 2021-12-02 09:17 | P.PNIM_ITS ---
Subjective Subjective Date of Service: 12/02/21 Interval History: cc: agitation interval history: no complaints Respiratory Respiratory: Reports no additional respiratory complaints Gastrointestinal Gastrointestinal: Reports no additional gastrointestinal complaints Physical Exam Vital Signs: Vital Signs: Last Vital Signs Temp 97.7 F 12/02/21 08:00 Pulse 82 12/02/21 08:00 Resp 14 12/02/21 08:00 BP 125/60 12/02/21 08:00 Pulse Ox 92 12/02/21 08:00 BMI result Body Mass Index 20.5 general: AO X 3, no acute distress Resp:? CTA bilateral, no accessory muscles used CVS: S1,S2,RRR GI: soft, non tender, non distended Neuro:? motor grossly intact, alert Psych: appropriate affect, appropriate insight? Objective Data Active Medications Acetaminophen (Acetaminophen 325 Mg Tablet) 650 mg PO BID PRN PRN Reason: Pain (Scale Score 1-3) Albuterol Sulfate (Albuterol Sulfate 90 Mcg 8 Gm Inhaler) 2 puff INHALE RQ4H PRN PRN Reason: Wheezing Apixaban (Apixaban 2.5 Mg Tablet) 2.5 mg PO BID [facility] Last Admin: 12/01/21 21:52 Dose: 2.5 mg Documented by: CHARLEE Benzonatate (Benzonatate 100 Mg Capsule) 100 mg PO TID [facility] Last Admin: 12/01/21 21:52 Dose: 100 mg Documented by: CHARLEE Clonazepam (Clonazepam 1 Mg Tablet) 1 mg PO BEDTIME [facility] Last Admin: 12/01/21 21:52 Dose: 1 mg Documented by: CHARLEE Clozapine (Clozapine 25 Mg Tablet) 50 mg PO BID@1000,1800 [facility] Last Admin: 12/01/21 17:22 Dose: 50 mg Documented by: GABRIELA Clozapine (Clozapine 100 Mg Tablet) 200 mg PO BEDTIME [facility] Last Admin: 12/01/21 21:52 Dose: 200 mg Documented by: CHARLEE Diphenhydramine HCl (Diphenhydramine Hcl 25 Mg Tablet) 25 mg PO Q6H PRN PRN Reason: prurutis Last Admin: 12/01/21 15:28 Dose: 25 mg Documented by: MINGO Dronedarone (Dronedarone Hcl 400 Mg Tablet) 400 mg PO BID [facility] Last Admin: 12/01/21 21:52 Dose: 400 mg Documented by: CHARLEE Hydrocortisone (Hydrocortisone 1 % Cream 28.35 Gm Tube) 1 appl TOPICAL BID PRN PRN Reason: skin irritation Hydroxyzine HCl (Hydroxyzine Hcl 50 Mg Tablet) 50 mg PO BEDTIME PRN PRN Reason: for insomnia Lamotrigine (Lamotrigine 25 Mg Tablet) 150 mg PO BEDTIME [facility] Last Admin: 12/01/21 21:53 Dose: 150 mg Documented by: CHARLEE Levothyroxine Sodium (Levothyroxine Sodium 150 Mcg Tablet) 150 mcg PO DAILY [facility] Last Admin: 12/01/21 10:55 Dose: 150 mcg Documented by: GABRIELA Melatonin (Melatonin 3 Mg Tablet) 6 mg PO BEDTIME PRN PRN Reason: Insomnia Midodrine (Midodrine Hcl 5 Mg Tablet) 5 mg PO BID [facility] Last Admin: 12/01/21 21:52 Dose: 5 mg Documented by: CHARLEE Non-Formulary Medication (Umeclidinium-Vilanterol [Anoro Ellipta]) 1 puff INHALE DAILY [facility] Olanzapine (Olanzapine 5 Mg Tablet) 5 mg PO BID [facility] Last Admin: 12/01/21 21:52 Dose: 5 mg Documented by: CHARLEE Olanzapine (Olanzapine 5 Mg Tablet) 5 mg PO BID PRN PRN Reason: tawny, agitation Pharmacy Consult (Consult Rx Perform Med Rec) 1 each MISCELLANE ONCE PRN PRN Reason: Consult order Senna (Sennosides 8.6 Mg Tablet) 17.2 mg PO BEDTIME PRN PRN Reason: Constipation Sevelamer Carbonate (Sevelamer Carbonate Tablet 800 Mg Tablet) 1,600 mg PO TIDWM [facility] Last Admin: 12/01/21 17:22 Dose: 1,600 mg Documented by: GABRIELA Sodium Chloride (0.9 % Sodium Chloride Flush 3 Ml Syringe) 3 ml IVFLUSH QSHIFT [facility] Last Admin: 12/02/21 03:03 Dose: Not Given Documented by: CHARLEE Non-Admin Reason: See Note Tamoxifen Citrate (Tamoxifen Citrate 10 Mg Tablet) 20 mg PO DAILY@1400 [facility] Last Admin: 12/01/21 12:30 Dose: 20 mg Documented by: GABRIELA Labs CBC & Chem 7: 12/02/21 04:36 12/02/21 04:36 Labs: Laboratory Results - last 24 hr 12/02/21 12/02/21 04:36 04:36 MCV 97.9 MCH 30.8 MCHC 31.4 RDW 16.3 H Plt Count 225 MPV 10.2 Absolute Nucleated RBC 0.000 Nucleated RBC % (auto) 0.0 Anion Gap 16 Estim Creat Clear Calc 7.4 Estimated GFR 8 Fasting Glucose 83 Calcium 9.1 Assessment and Plan (1) Agitation: Status: Acute Plan 76F presented with agitation, missed HD ESRD HD bipolar continue mood stabilizers, psych eval hypoernatremia resolved orthostatic hyoptension midodrine hypothyroid synthroid pafib eliquis, multaw history of breast ca tamoxifen full code reason for continued hospitalization: medically stable, awaiting safe discharge. Quality Stroke Does the patient have a stroke diagnosis?: No VTE Prior VTE?: No VTE Risk Level:: Medical - moderate - high VTE Device Contraindication: Treatment Not Indicated VTE Drug Contraindication: N/A - Med Ordered
[2021-12-02] MEDS: 0.9 % Sodium Chloride Flush 3 ML SYRINGE IVFLUSH ×3 (10:03→20:12)
[2021-12-02] MEDS: Levothyroxine Sodium 150 MCG TABLET PO (10:03)
[2021-12-02] MEDS: OLANZapine 5 MG TABLET PO ×3 (10:03→20:11)
[2021-12-02] MEDS: cloZAPine 25 MG TABLET 50 MG PO ×2 (10:03→17:06)
[2021-12-02] MEDS: Benzonatate 100 MG CAPSULE PO ×3 (10:03→20:10)
[2021-12-02] MEDS: Apixaban 2.5 MG TABLET PO ×2 (10:03→20:11)
[2021-12-02] MEDS: Sevelamer Carbonate Tablet 800 MG TABLET 1600 MG PO ×3 (10:03→16:20)
[2021-12-02] MEDS: Midodrine HCl 5 MG TABLET PO ×2 (10:03→20:11)
[2021-12-02] MEDS: Dronedarone HCl 400 MG TABLET PO ×2 (10:03→20:10)
[2021-12-02 12:00] VITALS: BP 103/58; PULSE 79; RESP 15; TEMP 37; O2SAT 95
[2021-12-02] MEDS: diphenhydrAMINE HCL 25 MG TABLET PO (13:13)
[2021-12-02 15:15] VITALS: BP 150/76; PULSE 80; RESP 18; TEMP 37.1; O2SAT 80
[2021-12-02] MEDS: Tamoxifen Citrate 10 MG TABLET 20 MG PO (16:20)
[2021-12-02 19:54] VITALS: BP 121/69; PULSE 86; RESP 17; TEMP 37.3; O2SAT 93
[2021-12-02] MEDS: clonazePAM 1 MG TABLET PO (20:11)
[2021-12-02] MEDS: cloZAPine 100 MG TABLET 200 MG PO (20:11)
[2021-12-02] MEDS: lamoTRIgine 25 MG TABLET 150 MG PO (20:12)
[2021-12-02 23:59] VITALS: BP 124/62; PULSE 88; RESP 18; TEMP 36.6; O2SAT 92
--- NOTE | 2021-12-03 | ECG_ITS ---
Test Reason : CHEST PAIN Blood Pressure : / mmHG Vent. Rate : 101 BPM Atrial Rate : 101 BPM P-R Int : 148 ms QRS Dur : 088 ms QT Int : 356 ms P-R-T Axes : 053 046 065 degrees QTc Int : 461 ms Sinus tachycardia Otherwise normal ECG When compared with ECG of 30-NOV-2021 21:44, No significant change was found Referred By: Aguila Ramos Electronically Signed By:LINWOOD LINDSEY MD
[2021-12-03 03:54] VITALS: BP 110/55; PULSE 96; RESP 18; TEMP 37.2; O2SAT 93
[2021-12-03 07:14] VITALS: BP 135/63; PULSE 80; RESP 15; TEMP 36.3; O2SAT 93
--- NOTE | 2021-12-03 09:18 | P.PNIM_ITS ---
Subjective Subjective Date of Service: 12/03/21 Interval History: cc: agitatoin interval history:no complaints Cardiovascular Cardiovascular: Reports no additional cardiovascular complaints Respiratory Respiratory: Reports no additional respiratory complaints Physical Exam Vital Signs: Vital Signs: Last Vital Signs Temp 97.4 F 12/03/21 07:14 Pulse 80 12/03/21 07:14 Resp 15 12/03/21 07:14 BP 135/63 12/03/21 07:14 Pulse Ox 93 12/03/21 07:14 BMI result Body Mass Index 20.5 general: AO X 3, no acute distress Resp:? CTA bilateral, no accessory muscles used CVS: S1,S2,RRR GI: soft, non tender, non distended Neuro:? motor grossly intact, alert Psych: appropriate affect, appropriate insight? Objective Data Active Medications Acetaminophen (Acetaminophen 325 Mg Tablet) 650 mg PO BID PRN PRN Reason: Pain (Scale Score 1-3) Albuterol Sulfate (Albuterol Sulfate 90 Mcg 8 Gm Inhaler) 2 puff INHALE RQ4H PRN PRN Reason: Wheezing Apixaban (Apixaban 2.5 Mg Tablet) 2.5 mg PO BID [facility] Last Admin: 12/02/21 20:11 Dose: 2.5 mg Documented by: NANCY Benzonatate (Benzonatate 100 Mg Capsule) 100 mg PO TID [facility] Last Admin: 12/02/21 20:10 Dose: 100 mg Documented by: NANCY Clonazepam (Clonazepam 1 Mg Tablet) 1 mg PO BEDTIME [facility] Last Admin: 12/02/21 20:11 Dose: 1 mg Documented by: NANCY Clozapine (Clozapine 25 Mg Tablet) 50 mg PO BID@1000,1800 [facility] Last Admin: 12/02/21 17:06 Dose: 50 mg Documented by: ALEKSANDRA Clozapine (Clozapine 100 Mg Tablet) 200 mg PO BEDTIME [facility] Last Admin: 12/02/21 20:11 Dose: 200 mg Documented by: NANCY Diphenhydramine HCl (Diphenhydramine Hcl 25 Mg Tablet) 25 mg PO Q6H PRN PRN Reason: prurutis Last Admin: 12/02/21 13:13 Dose: 25 mg Documented by: ALEKSANDRA Dronedarone (Dronedarone Hcl 400 Mg Tablet) 400 mg PO BID [facility] Last Admin: 12/02/21 20:10 Dose: 400 mg Documented by: NANCY Hydrocortisone (Hydrocortisone 1 % Cream 28.35 Gm Tube) 1 appl TOPICAL BID PRN PRN Reason: skin irritation Hydroxyzine HCl (Hydroxyzine Hcl 50 Mg Tablet) 50 mg PO BEDTIME PRN PRN Reason: for insomnia Lamotrigine (Lamotrigine 25 Mg Tablet) 150 mg PO BEDTIME [facility] Last Admin: 12/02/21 20:12 Dose: 150 mg Documented by: NANCY Levothyroxine Sodium (Levothyroxine Sodium 150 Mcg Tablet) 150 mcg PO DAILY [facility] Last Admin: 12/02/21 10:03 Dose: 150 mcg Documented by: ALEKSANDRA Melatonin (Melatonin 3 Mg Tablet) 6 mg PO BEDTIME PRN PRN Reason: Insomnia Midodrine (Midodrine Hcl 5 Mg Tablet) 5 mg PO BID [facility] Last Admin: 12/02/21 20:11 Dose: 5 mg Documented by: NANCY Non-Formulary Medication (Umeclidinium-Vilanterol [Anoro Ellipta]) 1 puff INHALE DAILY [facility] Olanzapine (Olanzapine 5 Mg Tablet) 5 mg PO BID [facility] Last Admin: 12/02/21 20:11 Dose: 5 mg Documented by: NANCY Olanzapine (Olanzapine 5 Mg Tablet) 5 mg PO BID PRN PRN Reason: tawny, agitation Last Admin: 12/02/21 13:14 Dose: 5 mg Documented by: ALEKSANDRA Pharmacy Consult (Consult Rx Perform Med Rec) 1 each MISCELLANE ONCE PRN PRN Reason: Consult order Senna (Sennosides 8.6 Mg Tablet) 17.2 mg PO BEDTIME PRN PRN Reason: Constipation Sevelamer Carbonate (Sevelamer Carbonate Tablet 800 Mg Tablet) 1,600 mg PO TIDWM [facility] Last Admin: 12/02/21 16:20 Dose: 1,600 mg Documented by: ALEKSANDRA Sodium Chloride (0.9 % Sodium Chloride Flush 3 Ml Syringe) 3 ml IVFLUSH QSHIFT [facility] Last Admin: 12/02/21 20:12 Dose: 3 ml Documented by: NANCY Tamoxifen Citrate (Tamoxifen Citrate 10 Mg Tablet) 20 mg PO DAILY@1400 [facility] Last Admin: 12/02/21 16:20 Dose: 20 mg Documented by: ALEKSANDRA Labs CBC & Chem 7: 12/02/21 04:36 12/02/21 04:36 Assessment and Plan (1) Agitation: Status: Acute Plan 76F presented with agitation, missed HD ESRD HD bipolar continue mood stabilizers, psych eval hypoernatremia resolved orthostatic hyoptension midodrine hypothyroid synthroid pafib steven miranda history of breast ca tamoxifen full code reason for continued hospitalization: medically stable, awaiting safe discharge. Quality Stroke Does the patient have a stroke diagnosis?: No VTE Prior VTE?: No VTE Risk Level:: Medical - moderate - high VTE Device Contraindication: Treatment Not Indicated VTE Drug Contraindication: N/A - Med Ordered
[2021-12-03] MEDS: OLANZapine 5 MG TABLET PO ×3 (09:23→20:27)
[2021-12-03] MEDS: Levothyroxine Sodium 150 MCG TABLET PO (09:23)
[2021-12-03] MEDS: Dronedarone HCl 400 MG TABLET PO ×2 (09:23→20:26)
[2021-12-03] MEDS: Benzonatate 100 MG CAPSULE PO ×3 (09:23→20:26)
[2021-12-03] MEDS: Sevelamer Carbonate Tablet 800 MG TABLET 1600 MG PO ×2 (09:23→17:25)
[2021-12-03] MEDS: diphenhydrAMINE HCL 25 MG TABLET PO ×2 (09:23→15:29)
[2021-12-03] MEDS: cloZAPine 25 MG TABLET 50 MG PO ×2 (09:23→17:24)
[2021-12-03] MEDS: Acetaminophen 325 MG TABLET 650 MG PO (09:23)
[2021-12-03] MEDS: 0.9 % Sodium Chloride Flush 3 ML SYRINGE IVFLUSH ×2 (09:23→15:31)
[2021-12-03] MEDS: Midodrine HCl 5 MG TABLET PO ×2 (09:24→20:27)
[2021-12-03] MEDS: Apixaban 2.5 MG TABLET PO ×2 (09:24→20:27)
--- NOTE | 2021-12-03 09:52 | PM.PNNEP ---
Subjective Subjective Date of Service: 12/03/21 Interval history: cc: agitation interval history:no complaints Physical Exam Vital Signs: Vital Signs: Last Vital Signs Temp 97.4 F 12/03/21 07:14 Pulse 80 12/03/21 07:14 Resp 15 12/03/21 07:14 BP 135/63 12/03/21 07:14 Pulse Ox 93 12/03/21 07:14 BMI result Body Mass Index 20.5 Const: General: cooperative, comfortable and no acute distress Orientation/consciousness: oriented to person, oriented to place, oriented to time and patient oriented x3 HEENT: Head: Yes normal to inspection, Yes normocephalic and Yes atraumatic Neck: Neck: Yes no JVD Resp: Effort & Inspection: normal respiratory effort and able to speak in complete sentences Auscultation: clear to auscultation bilaterally Cardio: Jugular venous distension: no JVD Rate: regular rate Rhythm: regular rhythm Heart sounds: S1 normal heart sound present and S2 normal heart sound present Peripheral pulses: Peripheral pulses 2+ throughout GI: Inspection: Yes normal to inspection Auscultation: normal bowel sounds Neuro: General: oriented to person, oriented to place, oriented to time and patient oriented x3 Extrem: General: Yes no clubbing, cyanosis or edema Psych: Affect: Anxious affect present Objective Data Labs CBC & Chem 7: 12/02/21 04:36 12/02/21 04:36 Procedures Date of Service Date of Service: 12/03/21 Assessment & Plan Assessment and plan (1) ESRD needing dialysis: Status: Acute Plan 76F presented with agitation, missed HD prior to presentation. S/P HD on Friday. Next HD on Friday ESRD HD per TTS schedule bipolar continue mood stabilizers, psych eval hyponatremia resolved. UF as tolerated during HD orthostatic hyoptension midodrine hypothyroid synthroid pafib steven miranda history of breast ca tamoxifen full code Time Spent With Patient Time: Total time spent is greater than 50% in coordination of care (as documented) at patient's floor/unit and/or counseling patient: Progress Note: Quality Stroke Does the patient have a stroke diagnosis?: No
--- NOTE | 2021-12-03 11:14 | MHC.CLN ---
NUTRITION PATIENT WITH ESRD RECEIVING HEMODIALYSIS. MODIFIED DIET FOR DIALYSIS PARAMETERS: 2 GRAM SODIUM, LOW POTASSIUM, LOW PHOSPHOROUS.
[2021-12-03 11:29] VITALS: BP 117/59; PULSE 98; RESP 15; TEMP 36.3; O2SAT 95
[2021-12-03] MEDS: Tamoxifen Citrate 10 MG TABLET 20 MG PO (15:29)
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
[2021-12-03 15:51] VITALS: BP 97/53; PULSE 109; RESP 18; TEMP 36.6; O2SAT 95
[2021-12-03 19:16] VITALS: BP 94/51; PULSE 118; RESP 15; TEMP 36.1; O2SAT 98
[2021-12-03] MEDS: Melatonin 3 MG TABLET 6 MG PO (20:25)
[2021-12-03] MEDS: cloZAPine 100 MG TABLET 200 MG PO (20:26)
[2021-12-03] MEDS: clonazePAM 1 MG TABLET PO (20:26)
[2021-12-03] MEDS: lamoTRIgine 25 MG TABLET 150 MG PO (20:27)
[2021-12-03 23:54] VITALS: BP 85/52; PULSE 104; RESP 16; TEMP 36.9; O2SAT 94
[2021-12-04] VITALS (12 sets, daily range): BP systolic 78–150; BP diastolic 41–70; PULSE 81–99; RESP 15–20; TEMP 36.2–37; O2SAT 94–100
--- NOTE | 2021-12-04 | EEG_ITS ---
This is a 16-channel digital EEG. The patient is reported drowsy during the tracing. Background EEG rhythm is diffusely slow and theta to delta range with intermittent left hemispheric and probably temporal sharp waves. Cardiac lead tracing was not obtained. Photic stimulation and hyperventilation were not performed. IMPRESSION: Abnormal electroencephalogram with diffuse slowing and left hemispheric irritability suggestive of seizure focus. MD AUGUSTINE Damian/GIO / [id number]
[2021-12-04] MEDS: 0.9 % Sodium Chloride Flush 3 ML SYRINGE IVFLUSH ×2 (02:13→10:48)
--- NOTE | 2021-12-04 09:02 | W.PM.DNNEP ---
Subjective Subjective Principal diagnosis: ESRD on HD This patient was seen during dialysis. Interval history: cc: agitation interval history:no complaints Physical Exam Vital Signs: Vital Signs: Last Vital Signs Temp 98.6 F 12/04/21 03:19 Pulse 99 12/04/21 03:19 Resp 16 12/04/21 03:19 BP 100/50 L 12/04/21 03:19 Pulse Ox 94 12/04/21 03:19 BMI result Body Mass Index 20.5 Const: General: cooperative and no acute distress Orientation/consciousness: oriented to person and patient oriented x3 HEENT: Head: Yes normal to inspection, Yes normocephalic and Yes atraumatic Neck: Neck: Yes no JVD Chest: Other: Permcath in place. No evidence of erythema Resp: Effort & Inspection: normal respiratory effort and able to speak in complete sentences Auscultation: clear to auscultation bilaterally Cardio: Jugular venous distension: no JVD Rate: regular rate Rhythm: regular rhythm Heart sounds: S1 normal heart sound present and S2 normal heart sound present GI: Auscultation: normal bowel sounds Neuro: General: oriented to person and patient oriented x3 Extrem: General: Yes no clubbing, cyanosis or edema Assessment & Plan Assessment and plan (1) ESRD needing dialysis: Status: Acute Plan 76F presented with agitation. No missed HD sessions. BP softer today during HD. Providing fluid and will minimize UF. ESRD HD per TTS schedule STEVAN during HD. labs on dialysis days ok bipolar continue mood stabilizers, psych eval hyponatremia resolved. UF as tolerated during HD orthostatic hyoptension midodrine hypothyroid synthroid steven hummel history of breast ca tamoxifen Time Spent With Patient Time: Total time spent is greater than 50% in coordination of care (as documented) at patient's floor/unit and/or counseling patient: Procedures Date of Service Date of Service: 12/04/21
--- NOTE | 2021-12-04 09:25 | HO.PM.IMPN ---
Subjective Subjective Date of Service: 12/04/21 Interval History: cc: agitatoin interval history:no complaints Cardiovascular Cardiovascular: Reports no additional cardiovascular complaints Respiratory Respiratory: Reports no additional respiratory complaints Physical Exam Vital Signs: Vital Signs: Last Vital Signs Temp 98.6 F 12/04/21 03:19 Pulse 99 12/04/21 03:19 Resp 16 12/04/21 03:19 BP 100/50 L 12/04/21 03:19 Pulse Ox 94 12/04/21 03:19 BMI result Body Mass Index 20.5 general: AO X 3, no acute distress Resp:? CTA bilateral, no accessory muscles used CVS: S1,S2,RRR GI: soft, non tender, non distended Neuro:? motor grossly intact, alert Psych: appropriate affect, impaired insight? Objective Data Active Medications Acetaminophen (Acetaminophen 325 Mg Tablet) 650 mg PO BID PRN PRN Reason: Pain (Scale Score 1-3) Last Admin: 12/03/21 09:23 Dose: 650 mg Documented by: RORY Albuterol Sulfate (Albuterol Sulfate 90 Mcg 8 Gm Inhaler) 2 puff INHALE RQ4H PRN PRN Reason: Wheezing Apixaban (Apixaban 2.5 Mg Tablet) 2.5 mg PO BID [facility] Last Admin: 12/03/21 20:27 Dose: 2.5 mg Documented by: SALLY Benzonatate (Benzonatate 100 Mg Capsule) 100 mg PO TID [facility] Last Admin: 12/03/21 20:26 Dose: 100 mg Documented by: SALLY Clonazepam (Clonazepam 1 Mg Tablet) 1 mg PO BEDTIME [facility] Last Admin: 12/03/21 20:26 Dose: 1 mg Documented by: SALLY Clozapine (Clozapine 25 Mg Tablet) 50 mg PO BID@1000,1800 [facility] Last Admin: 12/03/21 17:24 Dose: 50 mg Documented by: RORY Clozapine (Clozapine 100 Mg Tablet) 200 mg PO BEDTIME [facility] Last Admin: 12/03/21 20:26 Dose: 200 mg Documented by: SALLY Diphenhydramine HCl (Diphenhydramine Hcl 25 Mg Tablet) 25 mg PO Q6H PRN PRN Reason: prurutis Last Admin: 12/03/21 15:29 Dose: 25 mg Documented by: RORY Dronedarone (Dronedarone Hcl 400 Mg Tablet) 400 mg PO BID [facility] Last Admin: 12/03/21 20:26 Dose: 400 mg Documented by: SALLY Epoetin Tim (Epoetin Tim 10,000 Unit/Ml Vial) 10,000 unit IVPUSH ADILIA@2388 [facility] Hydrocortisone (Hydrocortisone 1 % Cream 28.35 Gm Tube) 1 appl TOPICAL BID PRN PRN Reason: skin irritation Hydroxyzine HCl (Hydroxyzine Hcl 50 Mg Tablet) 50 mg PO BEDTIME PRN PRN Reason: for insomnia Lamotrigine (Lamotrigine 25 Mg Tablet) 150 mg PO BEDTIME [facility] Last Admin: 12/03/21 20:27 Dose: 150 mg Documented by: SALLY Levothyroxine Sodium (Levothyroxine Sodium 150 Mcg Tablet) 150 mcg PO DAILY [facility] Last Admin: 12/03/21 09:23 Dose: 150 mcg Documented by: RORY Melatonin (Melatonin 3 Mg Tablet) 6 mg PO BEDTIME PRN PRN Reason: Insomnia Last Admin: 12/03/21 20:25 Dose: 6 mg Documented by: SALLY Midodrine (Midodrine Hcl 5 Mg Tablet) 5 mg PO BID [facility] Last Admin: 12/03/21 20:27 Dose: 5 mg Documented by: SALLY Non-Formulary Medication (Umeclidinium-Vilanterol [Anoro Ellipta]) 1 puff INHALE DAILY [facility] Olanzapine (Olanzapine 5 Mg Tablet) 5 mg PO BID [facility] Last Admin: 12/03/21 20:27 Dose: 5 mg Documented by: SALLY Olanzapine (Olanzapine 5 Mg Tablet) 5 mg PO BID PRN PRN Reason: tawny, agitation Last Admin: 12/03/21 15:29 Dose: 5 mg Documented by: RORY Pharmacy Consult (Consult Rx Perform Med Rec) 1 each MISCELLANE ONCE PRN PRN Reason: Consult order Senna (Sennosides 8.6 Mg Tablet) 17.2 mg PO BEDTIME PRN PRN Reason: Constipation Sevelamer Carbonate (Sevelamer Carbonate Tablet 800 Mg Tablet) 1,600 mg PO TIDWM [facility] Last Admin: 12/03/21 17:25 Dose: 1,600 mg Documented by: RORY Sodium Chloride (0.9 % Sodium Chloride Flush 3 Ml Syringe) [facility] Last Admin: 12/04/21 02:13 Dose: 3 ml Documented by: SALLY Tamoxifen Citrate (Tamoxifen Citrate 10 Mg Tablet) 20 mg PO DAILY@1400 [facility] Last Admin: 12/03/21 15:29 Dose: 20 mg Documented by: COTEMA Labs CBC & Chem 7: 12/02/21 04:36 12/02/21 04:36 Assessment and Plan (1) Agitation: Status: Acute Plan 76F presented with agitation, missed HD ESRD HD bipolar plan for geripsych placement hypernatremia resolved orthostatic hyoptension midodrine hypothyroid synthroid pafib eliquis, multaq history of breast ca tamoxifen full code reason for continued hospitalization: medically stable, awaiting safe discharge. Quality Stroke Does the patient have a stroke diagnosis?: No VTE Prior VTE?: No VTE Risk Level:: Medical - moderate - high VTE Device Contraindication: Treatment Not Indicated VTE Drug Contraindication: N/A - Med Ordered
[2021-12-04] MEDS: Levothyroxine Sodium 150 MCG TABLET PO (10:50)
[2021-12-04] MEDS: OLANZapine 5 MG TABLET PO (10:50)
--- NOTE | 2021-12-04 12:38 | PM.NEUROCN ---
History of Present Illness Data of Consult Service Date: 12/04/21 Primary Care Provider: Gabriel Acosta MD HPI Reason for consult: Seizure 6-year-old female with a past medical history of hypertension, hyperlipidemia, atrial fibrillation, ESRD on hemodialysis, hypothyroidism, anxiety, depression, bipolar with manic episodes, history of pulmonary embolism, history of SBO, seizures, COPD, history of ESBL E coli UTI who I was asked to see for seizure disorder. Hospitalist sent me a video of abnormal movements noted this morning. I started by to see her in her room when she was having grimacing in chewing movements of her mouth with eyes staring in space and not responsive. I tried to communicate with her and she did not respond. Few seconds later she went into a generalized convulsion with head turning to the right side and generalized tonic clonic movements. She was known to have seizure disorder Review of Systems Review of Systems: Unable to do review of system PMF Past Medical History Medical History Abdominal pain Acute UTI Arrhythmia Arthritis AV fistula Bacteremia due to Klebsiella pneumoniae Bipolar 1 disorder Bipolar disorder Bladder cancer Bowel obstruction Breast cancer Bronchopneumonia C. difficile diarrhea Cancer Chronic nausea Chronic respiratory failure COPD (chronic obstructive pulmonary disease) COVID-19 vaccine administered Dialysis patient Diarrhea Dysphagia ESRD (end stage renal disease) ESRD (end stage renal disease) on dialysis History of 2019 novel coronavirus disease (COVID-19) Hx of hypotension Hx of radiation therapy Hydronephrosis Hyperkalemia Hypothyroidism Invasive ductal carcinoma of breast Lab test negative for COVID-19 virus Lab test positive for detection of COVID-19 virus Leukocytosis MSSA bacteremia Paroxysmal A-fib Poor appetite Positive FIT (fecal immunochemical test) Pulmonary emboli Renal failure SBO (small bowel obstruction) Seizure SIRS (systemic inflammatory response syndrome) Thyroid disease Ureteral cancer Vomiting Wears dentures Family History Family History Father Dementia Mother Bipolar 1 disorder Brother Heart attack Other Mental health disorder Surgical History Surgical History History of abdominal surgery History of appendectomy History of back surgery History of bladder surgery (~06/2020) History of cholecystectomy History of esophagogastroduodenoscopy (EGD) History of hand surgery History of lumpectomy of left breast History of lumpectomy of right breast History of tonsillectomy Hx of colonoscopy Hx of foot surgery Social History Social History Household Members: Unknown / Unable to assess Housing: House Are you a primary chiropractic care to a significant other at home: No Unable to assess alcohol history related to: Unable to respond Alcohol intake: never Patient Tobacco Use Status: Former Tobacco user Quit Date: 4 years ago Tobacco use type: Cigarette Cigarette Packs Per Day: 1.5 Cigarettes Per Day: 30.0 Years Smoked: 50 e-Cigarette/Vaping Use: Never Used Second Hand Smoke Exposure: No Currently Displaying Signs/Symptoms of Drug Intoxication Withdrawal: No Advance Directives: Yes Advance Directives on File: Yes Advance Directives Date on File: 01/24/21 Healthcare Proxy: Yes (pt's ) Guardian: No Do you have thoughts of harming others: None Do you have a plan to hurt others: No Plan Recently lost weight without trying: Unsure Nutrition Risks: No Nutritional Risk service: No Current occupational status: retired and disabled Sexual orientation: Straight/Heterosexual Cognitive needs: Yes (Walker/Wheelchair) Hearing needs: No Vision needs: Yes (readng glasses) Meds Allergies Allergy/AdvReac Type Severity Reaction Status Date / Time oxycodone Allergy Severe Anaphylaxis Verified 12/04/21 11:58 adhesive tape Allergy Intermediate Blister Verified 11/13/21 21:04 aspirin Allergy Intermediate RASH Verified 11/13/21 21:04 benztropine Allergy Intermediate RASH Verified 11/13/21 21:04 NSAIDS (Non-Steroidal Allergy Intermediate RASH Verified 11/13/21 21:04 Anti-Inflamma ziprasidone Allergy Intermediate UNKNOWN Verified 11/13/21 21:04 doxycycline AdvReac Vomiting Verified 11/13/21 21:04 Active Medications: Current Medications Acetaminophen (Acetaminophen 325 Mg Tablet) 650 mg PO BID PRN PRN Reason: Pain (Scale Score 1-3) Last Admin: 12/03/21 09:23 Dose: 650 mg Documented by: Albuterol Sulfate (Albuterol Sulfate 90 Mcg 8 Gm Inhaler) 2 puff INHALE RQ4H PRN PRN Reason: Wheezing Apixaban (Apixaban 2.5 Mg Tablet) 2.5 mg PO BID [facility] Last Admin: 12/04/21 10:59 Dose: Not Given Documented by: Benzonatate (Benzonatate 100 Mg Capsule) 100 mg PO TID [facility] Last Admin: 12/04/21 10:58 Dose: Not Given Documented by: Clonazepam (Clonazepam 1 Mg Tablet) 1 mg PO BEDTIME [facility] Last Admin: 12/03/21 20:26 Dose: 1 mg Documented by: Clozapine (Clozapine 25 Mg Tablet) 50 mg PO BID@1000,1800 [facility] Last Admin: 12/04/21 10:58 Dose: Not Given Documented by: Clozapine (Clozapine 100 Mg Tablet) 200 mg PO BEDTIME [facility] Last Admin: 12/03/21 20:26 Dose: 200 mg Documented by: Diphenhydramine HCl (Diphenhydramine Hcl 25 Mg Tablet) 25 mg PO Q6H PRN PRN Reason: prurutis Last Admin: 12/03/21 15:29 Dose: 25 mg Documented by: Dronedarone (Dronedarone Hcl 400 Mg Tablet) 400 mg PO BID [facility] Last Admin: 12/04/21 12:06 Dose: Not Given Documented by: Epoetin Tim (Epoetin Tim 10,000 Unit/Ml Vial) 10,000 unit IVPUSH [facility]@[id number] [facility] Last Admin: 12/04/21 10:56 Dose: 10,000 unit Documented by: Hydrocortisone (Hydrocortisone 1 % Cream 28.35 Gm Tube) 1 appl TOPICAL BID PRN PRN Reason: skin irritation Hydroxyzine HCl (Hydroxyzine Hcl 50 Mg Tablet) 50 mg PO BEDTIME PRN PRN Reason: for insomnia Lamotrigine (Lamotrigine 25 Mg Tablet) 150 mg PO BEDTIME [facility] Last Admin: 12/03/21 20:27 Dose: 150 mg Documented by: Levothyroxine Sodium (Levothyroxine Sodium 150 Mcg Tablet) 150 mcg PO DAILY [facility] Last Admin: 12/04/21 10:50 Dose: 150 mcg Documented by: Melatonin (Melatonin 3 Mg Tablet) 6 mg PO BEDTIME PRN PRN Reason: Insomnia Last Admin: 12/03/21 20:25 Dose: 6 mg Documented by: Midodrine (Midodrine Hcl 5 Mg Tablet) 5 mg PO BID [facility] Last Admin: 12/04/21 10:57 Dose: Not Given Documented by: Non-Formulary Medication (Umeclidinium-Vilanterol [Anoro Ellipta]) 1 puff INHALE DAILY [facility] Olanzapine (Olanzapine 5 Mg Tablet) 5 mg PO BID [facility] Last Admin: 12/04/21 10:50 Dose: 5 mg Documented by: Olanzapine (Olanzapine 5 Mg Tablet) 5 mg PO BID PRN PRN Reason: tawny, agitation Last Admin: 12/03/21 15:29 Dose: 5 mg Documented by: Pharmacy Consult (Consult Rx Perform Med Rec) 1 each MISCELLANE ONCE PRN PRN Reason: Consult order Senna (Sennosides 8.6 Mg Tablet) 17.2 mg PO BEDTIME PRN PRN Reason: Constipation Sevelamer Carbonate (Sevelamer Carbonate Tablet 800 Mg Tablet) 1,600 mg PO TIDWM [facility] Last Admin: 12/04/21 12:05 Dose: Not Given Documented by: Sodium Chloride (0.9 % Sodium Chloride Flush 3 Ml Syringe) 3 ml IVFLUSH QSHIFT [facility] Last Admin: 12/04/21 10:48 Dose: 3 ml Documented by: Tamoxifen Citrate (Tamoxifen Citrate 10 Mg Tablet) 20 mg PO DAILY@1400 [facility] Last Admin: 12/03/21 15:29 Dose: 20 mg Documented by: Home Medications Medication Instructions Recorded Confirmed Last Taken Type clonazepam 1 mg tablet 1 mg PO BEDTIME 05/21/20 11/30/21 07/14/21 History lamotrigine 150 mg tablet 150 mg PO BEDTIME 05/21/20 11/30/21 10/18/21 History acetaminophen 325 mg tablet 650 mg PO BID PRN 05/22/20 11/30/21 03/19/21 History tamoxifen 20 mg tablet 20 mg PO DAILY@1400 07/15/21 11/30/21 10/19/21 09:00 History apixaban 2.5 mg tablet (Eliquis) 2.5 mg PO BID 09/03/21 11/30/21 11/30/21 History sevelamer carbonate 800 mg tablet 1,600 mg PO TIDWM tab 09/27/21 11/30/21 11/30/21 History dronedarone 400 mg tablet (Multaq) 1 tab PO BID 10/20/21 11/30/21 11/30/21 History albuterol sulfate 90 mcg/actuation 2 puff INHALATION Q4-6H PRN 11/01/21 11/30/21 Unknown History aerosol inhaler clozapine 100 mg tablet 200 mg PO BEDTIME 11/01/21 11/30/21 Unknown History levothyroxine 150 mcg tablet 1 tab PO DAILY 11/01/21 11/30/21 11/30/21 History melatonin 3 mg tablet 6 mg PO DAILY PRN 11/01/21 11/30/21 Unknown History umeclidinium 62.5 mcg-vilanterol 1 puff INHALATION DAILY 11/01/21 11/30/21 Unknown History 25 mcg/actuation powdr for inhalation (Anoro Ellipta) clozapine 25 mg tablet 2 tab PO BID 11/30/21 11/30/21 11/30/21 History olanzapine 5 mg tablet 1 tab PO BEDTIME 11/30/21 11/30/21 11/30/21 History Physical Exam Vital Signs: Vital Signs: Last Vital Signs Temp 97.1 F 12/04/21 11:45 Pulse 98 12/04/21 11:45 Resp 16 12/04/21 12:00 BP 92/58 L 12/04/21 12:23 Pulse Ox 98 12/04/21 12:00 BMI result Body Mass Index 20.5 Neuro: Other: Unresponsive. Having generalized convulsion. Before that diffuse atrophy and bruises were noted. Deep tendon reflexes were absent with flexor plantars. Results Labs CBC & Chem 7: 12/02/21 04:36 12/02/21 04:36 Assessment and Plan (1) Generalized seizure: Status: Acute 76 years old woman with complex underlying medical history including bipolar disorder taking multiple neuroleptics drugs, end-stage renal disease on dialysis, and complex partial secondarily generalized seizure disorder. I witnessed few seconds of complex partial status before she went into a generalized convulsion. Her previous seizure history and details were not known at this time. For now my recommendations are to give were of good a mg of lorazepam IV, load her with levetiracetam 1 g IV and then continued to 50 mg twice a day. Check levels of neural left drugs as high level of those drugs can also provoke seizure. At least a head CT without contrast is recommended to rule out any alternate or acute etiologies such as intracerebral hemorrhage. Procedures Date of Service Date of Service: 12/04/21
[2021-12-04] MEDS: 0.9 % Sodium Chloride 500 ML 999 ML IV (12:59)
[2021-12-04] MEDS: LORazepam 2 MG/ML VIAL 1 MG IVPUSH (12:59)
[2021-12-04 13:33] LABS: Mean Corpuscular HGB Conc 31.3 g/dl (31.0-35.0)
[2021-12-04 13:36] LABS: Mean Platelet Volume 10.1 fL (9.4-12.3); Platelet Count 207 X10*3/uL (160-400); Red Blood Count 1.97 X10*6/uL (4.20-5.50); Red Cell Distribution Width 16.6 % (11.0-16.0); White Blood Count 10.3 X10*3/uL (4.8-10.8)
--- NOTE | 2021-12-04 13:40 | PC.NURSE ---
1200 pt arrived back from dialysis , pt BP 78/50 manually pt opens eyes but not following commands , md made aware . New order for 500mls of NS bolus . 1211 pt noting to have twitching in face which is unusual for pt at baseline bp 82/52 manually . made aware and at bedside . 1223 notified and at bedside , director nursing service at bedside and at 1244 pt noted to have tonic clonic seizure , witness by this rn , director nursing service , and . 1mg of ativan administered per , o2 applied , pt noted to be foaming the mouth and pt suctioned bp 107/67 . 1255 seizure noted to have stopped after administration of ativan . pt resting no jerking motions to face noted . new order for head CT
[2021-12-04 13:47] LABS: Hematocrit 19.5 % (37.0-47.0)
[2021-12-04 13:52] LABS: Anion Gap 19 (12-20); Blood Urea Nitrogen 27 mg/dL (9-16); Calcium 9.8 mg/dL (8.4-10.2); Carbon Dioxide 14 mmol/L (22-29); Chloride 103 mmol/L (96-108); Estimated Glomerular Filt Rate 18; Glucose Random 127 mg/dL (60-115); Magnesium 1.8 mg/dL (1.6-2.6); Potassium 4.1 mmol/L (3.3-5.1); Sodium 132 mmol/L (135-145)
[2021-12-04 13:55] LABS: Hemoglobin 6.1 g/dl (12.0-16.0)
[2021-12-04] MEDS: levETIRAcetam in NaCl (iso-os) 1,000 MG/100 ML PIGGYBACK 400 MG IV (14:41)
[2021-12-05] VITALS (7 sets, daily range): BP systolic 82–132; BP diastolic 48–61; PULSE 68–88; RESP 16–18; TEMP 36.2–37.2; O2SAT 96–100
[2021-12-05] MEDS: 0.9 % Sodium Chloride Flush 3 ML SYRINGE IVFLUSH ×4 (02:44→20:01)
[2021-12-05] MEDS: cloZAPine 25 MG TABLET 50 MG PO ×2 (08:24→17:13)
[2021-12-05] MEDS: levETIRAcetam 500 MG TABLET PO (08:25)
--- NOTE | 2021-12-05 10:01 | PM.PNNEP ---
Subjective Subjective Date of Service: 12/05/21 Principal diagnosis: ESRD on HD Interval history: cc: agitatoin interval history:noted hypotension yesterday with seizure activity. Physical Exam Vital Signs: Vital Signs: Last Vital Signs Temp 98.9 F 12/05/21 07:49 Pulse 88 12/05/21 07:49 Resp 17 12/05/21 07:49 BP 132/61 12/05/21 07:49 Pulse Ox 99 12/05/21 07:49 BMI result Body Mass Index 20.5 Const: General: no acute distress and lethargic Orientation/consciousness: lethargic HEENT: Head: Yes normal to inspection, Yes normocephalic and Yes atraumatic Neck: Neck: Yes normal visual inspection and Yes no JVD Resp: Effort & Inspection: normal respiratory effort Auscultation: clear to auscultation bilaterally Cardio: Jugular venous distension: no JVD Rate: regular rate Rhythm: regular rhythm Heart sounds: S1 normal heart sound present and S2 normal heart sound present GI: Auscultation: normal bowel sounds Neuro: General: no focal motor deficits Extrem: General: Yes no clubbing, cyanosis or edema Objective Data Labs CBC & Chem 7: 12/04/21 13:21 12/04/21 13:21 Labs: Laboratory Results - last 24 hr 12/04/21 12/04/21 12/04/21 13:21 13:21 14:58 WBC 10.3 RBC 1.97 L Hgb 6.1 L* Hct 19.5 L* MCV 99.0 H MCH 31.0 MCHC 31.3 RDW 16.6 H Plt Count 207 MPV 10.1 Absolute Nucleated RBC 0.000 Nucleated RBC % (auto) 0.0 Sodium 132 L Potassium 4.1 Chloride 103 Carbon Dioxide 14 L Anion Gap 19 BUN 27 H Creatinine 2.55 H Estim Creat Clear Calc 16.0 Estimated GFR 18 Random Glucose 127 H Calcium 9.8 D Magnesium 1.8 Blood Type O Positive Antibody Screen NEGATIVE Crossmatch See Detail Procedures Date of Service Date of Service: 12/05/21 Assessment & Plan Assessment and plan (1) ESRD needing dialysis: Status: Acute Plan 76F presented with agitation, missed HD prior to presentation. Now on TTS schedule. ESRD HD per TTS schedule Required fluid return due to hypotension yesterday. Suspect she is at her EDW bipolar continue mood stabilizers, psych evaluation Hyponatremia resolved. UF as tolerated during HD orthostatic hypotension midodrine hypothyroid Synthroid pafib eliquis anemia: currently on STEVAN. Iron panel added. history of breast ca tamoxifen Time Spent With Patient Time: Total time spent is greater than 50% in coordination of care (as documented) at patient's floor/unit and/or counseling patient: Progress Note: Quality Stroke Does the patient have a stroke diagnosis?: No
[2021-12-05] MEDS: Benzonatate 100 MG CAPSULE PO ×3 (10:14→20:01)
[2021-12-05] MEDS: Midodrine HCl 5 MG TABLET PO ×2 (10:14→20:01)
[2021-12-05] MEDS: Levothyroxine Sodium 150 MCG TABLET PO (10:14)
[2021-12-05] MEDS: Apixaban 2.5 MG TABLET PO ×2 (10:14→20:01)
[2021-12-05] MEDS: OLANZapine 5 MG TABLET PO ×2 (10:14→20:00)
[2021-12-05] MEDS: Dronedarone HCl 400 MG TABLET PO ×2 (10:14→20:01)
--- NOTE | 2021-12-05 13:10 | HO.PM.IMPN ---
Subjective Subjective Date of Service: 12/05/21 Interval History: Seen and evaluated Agitated, difficult to talk to her and get information denies any complaints Review of Systems unable to obtain good systemic review as the patient is agitated but generally denies any chest pain or shortness of breath Physical Exam Vital Signs: Vital Signs: Last Vital Signs Temp 97.9 F 12/05/21 12:00 Pulse 81 12/05/21 12:00 Resp 18 12/05/21 12:00 BP 118/56 L 12/05/21 12:00 Pulse Ox 100 12/05/21 12:00 BMI result Body Mass Index 20.5 Const: Other: Constitutional : Alert with stimulation but overall agitated Neck : Normal inspection, Supple Cardiovascular : RRR, S1 S2, no lower extremity edema Respiratory :? Fair bilateral air entry,? no crackles, wheezes or rhonchi Gastrointestinal:? soft, lax, Normal bowel sounds, Non tender Skin : Warm, Dry, PermCath in place Neurological : Alert &? disoriented, No focal deficit Psychiatric, agitated, difficult to keep focus Objective Data Active Medications Acetaminophen (Acetaminophen 325 Mg Tablet) 650 mg PO BID PRN PRN Reason: Pain (Scale Score 1-3) Last Admin: 12/03/21 09:23 Dose: 650 mg Documented by: COTEMA Albuterol Sulfate (Albuterol Sulfate 90 Mcg 8 Gm Inhaler) 2 puff INHALE RQ4H PRN PRN Reason: Wheezing Apixaban (Apixaban 2.5 Mg Tablet) 2.5 mg PO BID [facility] Last Admin: 12/05/21 10:14 Dose: 2.5 mg Documented by: MAULIK Benzonatate (Benzonatate 100 Mg Capsule) 100 mg PO TID [facility] Last Admin: 12/05/21 10:14 Dose: 100 mg Documented by: MAULIK Clonazepam (Clonazepam 1 Mg Tablet) 1 mg PO BEDTIME [facility] Last Admin: 12/04/21 21:58 Dose: Not Given Documented by: SALLY Non-Admin Reason: Patient Asleep Clozapine (Clozapine 25 Mg Tablet) 50 mg PO BID@1000,1800 [facility] Last Admin: 12/05/21 08:24 Dose: 50 mg Documented by: MAULIK Clozapine (Clozapine 100 Mg Tablet) 200 mg PO BEDTIME [facility] Last Admin: 12/04/21 21:59 Dose: Not Given Documented by: SALLY Non-Admin Reason: Patient Asleep Diphenhydramine HCl (Diphenhydramine Hcl 25 Mg Tablet) 25 mg PO Q6H PRN PRN Reason: prurutis Last Admin: 12/03/21 15:29 Dose: 25 mg Documented by: RORY Dronedarone (Dronedarone Hcl 400 Mg Tablet) 400 mg PO BID [facility] Last Admin: 12/05/21 10:14 Dose: 400 mg Documented by: MAULIK Epoetin Tim (Epoetin Tim 10,000 Unit/Ml Vial) 10,000 unit IVPUSH TUTHSA@1645 [facility] Last Admin: 12/04/21 10:56 Dose: 10,000 unit Documented by: MAULIK Hydrocortisone (Hydrocortisone 1 % Cream 28.35 Gm Tube) 1 appl TOPICAL BID PRN PRN Reason: skin irritation Hydroxyzine HCl (Hydroxyzine Hcl 50 Mg Tablet) 50 mg PO BEDTIME PRN PRN Reason: for insomnia Lamotrigine (Lamotrigine 25 Mg Tablet) 150 mg PO BEDTIME [facility] Last Admin: 12/04/21 21:59 Dose: Not Given Documented by: SALLY Non-Admin Reason: Patient Asleep Levetiracetam (Levetiracetam 500 Mg Tablet) 500 mg PO BID [facility] Last Admin: 12/05/21 08:25 Dose: 500 mg Documented by: MAULIK Levothyroxine Sodium (Levothyroxine Sodium 150 Mcg Tablet) 150 mcg PO DAILY [facility] Last Admin: 12/05/21 10:14 Dose: 150 mcg Documented by: MAULIK Lorazepam (Lorazepam 2 Mg/Ml Vial) 1 mg IVPUSH Q4H PRN PRN Reason: seizure Melatonin (Melatonin 3 Mg Tablet) 6 mg PO BEDTIME PRN PRN Reason: Insomnia Last Admin: 12/03/21 20:25 Dose: 6 mg Documented by: SALLY Midodrine (Midodrine Hcl 5 Mg Tablet) 5 mg PO BID [facility] Last Admin: 12/05/21 10:14 Dose: 5 mg Documented by: MAULIK Non-Formulary Medication (Umeclidinium-Vilanterol [Anoro Ellipta]) 1 puff INHALE DAILY [facility] Olanzapine (Olanzapine 5 Mg Tablet) 5 mg PO BID [facility] Last Admin: 12/05/21 10:14 Dose: 5 mg Documented by: MAULIK Olanzapine (Olanzapine 5 Mg Tablet) 5 mg PO BID PRN PRN Reason: tawny, agitation Last Admin: 12/03/21 15:29 Dose: 5 mg Documented by: RORY Pharmacy Consult (Consult Rx Perform Med Rec) 1 each MISCELLANE ONCE PRN PRN Reason: Consult order Senna (Sennosides 8.6 Mg Tablet) 17.2 mg PO BEDTIME PRN PRN Reason: Constipation Sevelamer Carbonate (Sevelamer Carbonate Tablet 800 Mg Tablet) 1,600 mg PO TIDWM [facility] Last Admin: 12/05/21 08:26 Dose: Not Given Documented by: MAULIK Non-Admin Reason: Patient Refused Sodium Chloride (0.9 % Sodium Chloride Flush 3 Ml Syringe) 3 ml IVFLUSH QSHIFT [facility] Last Admin: 12/05/21 08:25 Dose: 3 ml Documented by: MAULIK Tamoxifen Citrate (Tamoxifen Citrate 10 Mg Tablet) 20 mg PO DAILY@1400 [facility] Last Admin: 12/04/21 14:05 Dose: Not Given Documented by: MAULIK Non-Admin Reason: unable to follow commands Labs CBC & Chem 7: 12/04/21 13:21 12/04/21 13:21 Labs: Laboratory Results - last 24 hr 12/04/21 12/04/21 12/04/21 13:21 13:21 14:58 MCV 99.0 H MCH 31.0 MCHC 31.3 RDW 16.6 H Plt Count 207 MPV 10.1 Absolute Nucleated RBC 0.000 Nucleated RBC % (auto) 0.0 Anion Gap 19 Estim Creat Clear Calc 16.0 Estimated GFR 18 Random Glucose 127 H Calcium 9.8 D Magnesium 1.8 Blood Type O Positive Antibody Screen NEGATIVE Crossmatch See Detail Assessment and Plan (1) Generalized seizure: Status: Acute (2) Agitation: Status: Acute (3) ESRD needing dialysis: Status: Acute Plan 76F presented with agitation, missed HD seizure disorder Patient broke into seizure loaded with Keppra with good response as no recurrent seizures noted Renally adjusted Keppra 250 b.i.d. ESRD HD per nephrology recommendations bipolar plan for geripsych placement pending bed availability hypernatremia resolved orthostatic hyoptension midodrine hypothyroid synthroid pafib pacheco miranda history of breast ca tamoxifen full code reason for continued hospitalization: breakthrough seizure that was controlled, awaiting safe discharge plan. Quality Stroke Does the patient have a stroke diagnosis?: No VTE Prior VTE?: No VTE Risk Level:: Medical - moderate - high VTE Device Contraindication: Treatment Not Indicated VTE Drug Contraindication: N/A - Med Ordered
[2021-12-05] MEDS: Sevelamer Carbonate Tablet 800 MG TABLET 1600 MG PO ×2 (13:14→17:13)
[2021-12-05] MEDS: Tamoxifen Citrate 10 MG TABLET 20 MG PO (13:14)
[2021-12-05] MEDS: Valproic Acid (as Sodium Salt) 250 MG in Dextrose 5 % 50 ML 52.5 MG IV ×2 (15:14→23:23)
[2021-12-05 17:07] LABS: Clozapine (Clozaril) 103 mcg/L; Norclozapine 103 mcg/L (25-400)
[2021-12-05] MEDS: lamoTRIgine 25 MG TABLET 150 MG PO (20:00)
[2021-12-05] MEDS: hydrOXYzine HCL 50 MG TABLET PO (20:01)
[2021-12-05] MEDS: clonazePAM 1 MG TABLET PO (20:01)
[2021-12-05] MEDS: Melatonin 3 MG TABLET 6 MG PO (20:01)
[2021-12-05] MEDS: cloZAPine 100 MG TABLET 200 MG PO (20:01)
[2021-12-05] MEDS: Lactated Ringers 1,000 ML 999 ML IV (20:48)
[2021-12-05] MEDS: Acetaminophen 325 MG TABLET 650 MG PO (21:15)
[2021-12-05] MEDS: diphenhydrAMINE HCL 25 MG TABLET PO (21:15)
[2021-12-05 22:05] LABS: Lactic Acid 1.4 mmol/L (0.5-2.0)
[2021-12-06] VITALS (8 sets, daily range): BP systolic 96–112; BP diastolic 48–58; PULSE 75–95; RESP 16–20; TEMP 36–37.6; O2SAT 93–98
[2021-12-06] MEDS: OLANZapine 5 MG TABLET PO ×3 (00:12→19:25)
[2021-12-06] MEDS: diphenhydrAMINE HCL 25 MG TABLET PO ×3 (03:52→19:25)
[2021-12-06 06:25] LABS: Mean Corpuscular HGB Conc 31.1 g/dl (31.0-35.0); Mean Corpuscular Hemoglobin 31.7 pg (27.0-33.0); Mean Platelet Volume 10.2 fL (9.4-12.3); Platelet Count 188 X10*3/uL (160-400); Red Blood Count 2.02 X10*6/uL (4.20-5.50); Red Cell Distribution Width 15.8 % (11.0-16.0); White Blood Count 6.4 X10*3/uL (4.8-10.8)
[2021-12-06 06:33] LABS: Anion Gap 17 (12-20); Blood Urea Nitrogen 50 mg/dL (9-16); Calcium 8.8 mg/dL (8.4-10.2); Carbon Dioxide 20 mmol/L (22-29); Chloride 103 mmol/L (96-108); Creatinine Clr Calc Pharmacy 7.6; Estimated Glomerular Filt Rate 8; Glucose Random 88 mg/dL (60-115); Iron 89 mcg/dL (30-160); Percent Iron Saturation 46 % (15-50); Potassium 4.7 mmol/L (3.3-5.1); Sodium 135 mmol/L (135-145); Total Iron Binding Capacity 192 mcg/dL (228-428); Unsaturated Iron Binding 103 ug/dL
[2021-12-06 06:39] LABS: Hemoglobin 6.4 g/dl (12.0-16.0)
--- NOTE | 2021-12-06 06:39 | PM.EVENT ---
Event Note Date of Service: 12/06/21 Event Note: Patient was hypertensive overnight, no evidence of infection, patient was not tachycardia, no tachypnea, lactic acid was obtained which was normal. Patient was given 1 L of LR with improvement of her blood pressure. This morning patient's labs show hemoglobin of 6.4. Will transfuse 1 unit of PRBC. There is no evidence of bleed.
[2021-12-06 06:40] LABS: Hematocrit 20.6 % (37.0-47.0)
--- NOTE | 2021-12-06 06:41 | PM.EVENT ---
Event Note Date of Service: 12/06/21 Event Note: Patient was noted to be hypotensive overnight, no evidence of infection, no tachycardia or tachypnea, lactic acid was obtained which was normal. Hypotension likely secondary to dialysis received earlier in the day. Patient was also noted to be anemic this morning with a hemoglobin of 6.4. Patient will be given 1 unit of PRBC. No Evidence of active or acute bleed
[2021-12-06] MEDS: 0.9 % Sodium Chloride Flush 3 ML SYRINGE IVFLUSH ×2 (07:08→15:08)
[2021-12-06] MEDS: Valproic Acid (as Sodium Salt) 250 MG in Dextrose 5 % 50 ML 52.5 MG IV ×3 (07:08→23:38)
[2021-12-06 08:19] LABS: Neut%MD 72.7 %; Neutrophils Absolute Auto 4.7 x10*3/uL (2.0-8.3)
[2021-12-06] MEDS: cloZAPine 25 MG TABLET 50 MG PO ×2 (08:35→16:29)
[2021-12-06] MEDS: Apixaban 2.5 MG TABLET PO ×2 (08:35→19:24)
[2021-12-06] MEDS: Benzonatate 100 MG CAPSULE PO ×3 (08:35→19:25)
[2021-12-06] MEDS: Sevelamer Carbonate Tablet 800 MG TABLET 1600 MG PO ×2 (08:35→16:29)
[2021-12-06] MEDS: Dronedarone HCl 400 MG TABLET PO ×2 (08:36→19:24)
[2021-12-06] MEDS: Levothyroxine Sodium 150 MCG TABLET PO (08:36)
[2021-12-06] MEDS: Midodrine HCl 5 MG TABLET PO ×2 (08:36→19:25)
--- NOTE | 2021-12-06 09:31 | PM.PNNEP ---
Subjective Subjective Date of Service: 12/06/21 Principal diagnosis: ESRD on HD Interval history: Seen and evaluated noted anemia this am. Requiring prbc transfusion. Physical Exam Vital Signs: Vital Signs: Last Vital Signs Temp 97.3 F 12/06/21 07:44 Pulse 75 12/06/21 07:44 Resp 19 12/06/21 07:44 BP 99/48 L 12/06/21 07:44 Pulse Ox 98 12/06/21 07:44 BMI result Body Mass Index 20.5 Const: General: cooperative and no acute distress HEENT: Head: Yes normal to inspection, Yes normocephalic and Yes atraumatic Neck: Neck: Yes no JVD Resp: Effort & Inspection: normal respiratory effort Auscultation: clear to auscultation bilaterally Cardio: Jugular venous distension: no JVD Rate: regular rate Rhythm: regular rhythm Heart sounds: S1 normal heart sound present and S2 normal heart sound present Peripheral pulses: Peripheral pulses 2+ throughout GI: Inspection: Yes normal to inspection Skin: General skin exam: no rashes or lesions noted Neuro: General: no focal motor deficits Extrem: General: Yes normal to inspection and Yes no pedal edema Objective Data Labs CBC & Chem 7: 12/06/21 06:02 12/06/21 06:02 Labs: Laboratory Results - last 24 hr 12/01/21 12/04/21 12/05/21 10:43 14:58 21:48 WBC RBC Hgb Hct MCV MCH MCHC RDW Plt Count MPV Absolute Neuts (auto) Absolute Nucleated RBC Nucleated RBC % (auto) Sodium Potassium Chloride Carbon Dioxide Anion Gap BUN Creatinine Estim Creat Clear Calc Estimated GFR Random Glucose Lactic Acid 1.4 Calcium Iron TIBC % Saturation Unsat Iron Binding Clozapine 103 Norclozapine 103 Blood Type O Positive Antibody Screen NEGATIVE Crossmatch See Detail 12/06/21 12/06/21 06:02 06:02 WBC 6.4 RBC 2.02 L Hgb 6.4 L* Hct 20.6 L* MCV 102.0 H MCH 31.7 MCHC 31.1 RDW 15.8 Plt Count 188 MPV 10.2 Absolute Neuts (auto) 4.7 Absolute Nucleated RBC 0.000 Nucleated RBC % (auto) 0.0 Sodium 135 Potassium 4.7 Chloride 103 Carbon Dioxide 20 L Anion Gap 17 BUN 50 H D Creatinine 5.34 H* Estim Creat Clear Calc 7.6 Estimated GFR 8 Random Glucose 88 Lactic Acid Calcium 8.8 D Iron 89 TIBC 192 L % Saturation 46 Unsat Iron Binding 103 Clozapine Norclozapine Blood Type Antibody Screen Crossmatch Procedures Date of Service Date of Service: 12/06/21 Assessment & Plan Assessment and plan (1) ESRD needing dialysis: Status: Acute Plan 76F presented with agitation, missed HD prior to presentation. Now on TTS schedule. 1. ESRD:cont HD T,,S 2.Anemia - prbc transfusion this am. Iron replete. Continue STEVAN 10,000 units tiw with dialysis 3.Hypotension - r/o infection. maintain hemodynamics during HD. Avoid aggressive UF. May need to be kept net even. midodrine for bp support during HD. REC: contHD 3x/w? Time Spent With Patient Time: Total time spent is greater than 50% in coordination of care (as documented) at patient's floor/unit and/or counseling patient: Progress Note: Quality Stroke Does the patient have a stroke diagnosis?: No
[2021-12-06 11:09] LABS: Alanine Aminotransferase 6 U/L (0-31); Albumin Level 2.8 g/dL (3.5-5.0); Alkaline Phosphatase 96 U/L (39-117); Aspartate Amino Transferase 9 U/L (5-31); Bilirubin Direct 0.2 mg/dL (0.0-0.5); Bilirubin Total 0.4 mg/dL (0.0-1.0); Total Protein 5.2 g/dL (6.5-8.0)
[2021-12-06] MEDS: Acetaminophen 325 MG TABLET 650 MG PO ×2 (11:38→23:37)
--- NOTE | 2021-12-06 13:13 | HO.PM.IMPN ---
Subjective Subjective Date of Service: 12/06/21 Interval History: the patient was seen and evaluated this morning Laying in bedHaving dialysis session, looks weak and tired Asking about going back home Denies any fever, chills or shortness of breath No reported other overnight events. Systemic review: No fever, chills but reported generalized weakness No chest pain, palpitation No shortness of breath or coughing No abdominal pain, nausea or vomiting No urinary symptoms Physical Exam Vital Signs: Vital Signs: Last Vital Signs Temp 96.8 F 12/06/21 11:41 Pulse 79 12/06/21 11:41 Resp 18 12/06/21 11:41 BP 96/50 L 12/06/21 11:41 Pulse Ox 98 12/06/21 07:44 BMI result Body Mass Index 20.5 Const: Other: Constitutional : Alert and interactive, mildly distressed Neck : Normal inspection, Supple Cardiovascular : RRR, S1 S2, no lower extremity edema Respiratory :? Fair bilateral air entry,? no crackles, wheezes or rhonchi Gastrointestinal:? soft, lax, Normal bowel sounds, Non tender Skin : Warm, Dry, PermCath in place Neurological : Alert &? oriented about self and place, No focal deficit Psychiatric, mildly distressed but less agitated Objective Data Active Medications Acetaminophen (Acetaminophen 325 Mg Tablet) 650 mg PO BID PRN PRN Reason: Pain (Scale Score 1-3) Last Admin: 12/06/21 11:38 Dose: 650 mg Documented by: MAULIK Albuterol Sulfate (Albuterol Sulfate 90 Mcg 8 Gm Inhaler) 2 puff INHALE RQ4H PRN PRN Reason: Wheezing Apixaban (Apixaban 2.5 Mg Tablet) 2.5 mg PO BID [facility] Last Admin: 12/06/21 08:35 Dose: 2.5 mg Documented by: MAULIK Benzonatate (Benzonatate 100 Mg Capsule) 100 mg PO TID [facility] Last Admin: 12/06/21 08:35 Dose: 100 mg Documented by: MAULIK Clonazepam (Clonazepam 1 Mg Tablet) 1 mg PO BEDTIME [facility] Last Admin: 12/05/21 20:01 Dose: 1 mg Documented by: BRANDON Clozapine (Clozapine 25 Mg Tablet) 50 mg PO BID@1000,1800 [facility] Last Admin: 12/06/21 08:35 Dose: 50 mg Documented by: MAULIK Clozapine (Clozapine 100 Mg Tablet) 200 mg PO BEDTIME [facility] Last Admin: 12/05/21 20:01 Dose: 200 mg Documented by: BRANDON Diphenhydramine HCl (Diphenhydramine Hcl 25 Mg Tablet) 25 mg PO Q6H PRN PRN Reason: prurutis Last Admin: 12/06/21 09:44 Dose: 25 mg Documented by: MAULIK Dronedarone (Dronedarone Hcl 400 Mg Tablet) 400 mg PO BID [facility] Last Admin: 12/06/21 08:36 Dose: 400 mg Documented by: MAULIK Epoetin Tim (Epoetin Tim 10,000 Unit/Ml Vial) 10,000 unit IVPUSH [facility]@1645 [facility] Last Admin: 12/04/21 10:56 Dose: 10,000 unit Documented by: MAULIK Hydrocortisone (Hydrocortisone 1 % Cream 28.35 Gm Tube) 1 appl TOPICAL BID PRN PRN Reason: skin irritation Hydroxyzine HCl (Hydroxyzine Hcl 50 Mg Tablet) 50 mg PO BEDTIME PRN PRN Reason: for insomnia Last Admin: 12/05/21 20:01 Dose: 50 mg Documented by: BRANDON Valproic Acid 250 mg/ Dextrose 52.5 mls @ 52.5 mls/hr IV Q8H [facility] Last Infusion: 12/06/21 08:29 Dose: 0 mls/hr Documented by: MAULIK Lamotrigine (Lamotrigine 25 Mg Tablet) 150 mg PO BEDTIME [facility] Last Admin: 12/05/21 20:00 Dose: 150 mg Documented by: BRANDON Levothyroxine Sodium (Levothyroxine Sodium 150 Mcg Tablet) 150 mcg PO DAILY [facility] Last Admin: 12/06/21 08:36 Dose: 150 mcg Documented by: MAULIK Lorazepam (Lorazepam 2 Mg/Ml Vial) 1 mg IVPUSH Q4H PRN PRN Reason: seizure Melatonin (Melatonin 3 Mg Tablet) 6 mg PO BEDTIME PRN PRN Reason: Insomnia Last Admin: 12/05/21 20:01 Dose: 6 mg Documented by: BRANDON Midodrine (Midodrine Hcl 5 Mg Tablet) 5 mg PO BID [facility] Last Admin: 12/06/21 08:36 Dose: 5 mg Documented by: MAULIK Olanzapine (Olanzapine 5 Mg Tablet) 5 mg PO BID [facility] Last Admin: 12/06/21 08:36 Dose: 5 mg Documented by: MAULIK Olanzapine (Olanzapine 5 Mg Tablet) 5 mg PO BID PRN PRN Reason: tawny, agitation Last Admin: 12/06/21 00:12 Dose: 5 mg Documented by: BRANDON Pharmacy Consult (Consult Rx Perform Med Rec) 1 each MISCELLANE ONCE PRN PRN Reason: Consult order Senna (Sennosides 8.6 Mg Tablet) 17.2 mg PO BEDTIME PRN PRN Reason: Constipation Sevelamer Carbonate (Sevelamer Carbonate Tablet 800 Mg Tablet) 1,600 mg PO TIDWM [facility] Last Admin: 12/06/21 10:52 Dose: Not Given Documented by: MAULIK Non-Admin Reason: Off unit: Dialysis Sodium Chloride (0.9 % Sodium Chloride Flush 3 Ml Syringe) 3 ml IVFLUSH QSHIFT [facility] Last Admin: 12/06/21 07:08 Dose: 3 ml Documented by: MAULIK Tamoxifen Citrate (Tamoxifen Citrate 10 Mg Tablet) 20 mg PO DAILY@1400 [facility] Last Admin: 12/05/21 13:14 Dose: 20 mg Documented by: MAULIK Labs CBC & Chem 7: 12/06/21 06:02 12/06/21 06:02 Labs: Laboratory Results - last 24 hr 12/01/21 12/04/21 12/05/21 10:43 14:58 21:48 MCV MCH MCHC RDW Plt Count MPV Absolute Neuts (auto) Absolute Nucleated RBC Nucleated RBC % (auto) Anion Gap Estim Creat Clear Calc Estimated GFR Random Glucose Lactic Acid 1.4 Calcium Iron TIBC % Saturation Unsat Iron Binding Total Bilirubin Direct Bilirubin AST ALT Alkaline Phosphatase Total Protein Albumin Clozapine 103 Norclozapine 103 Blood Type O Positive Antibody Screen NEGATIVE Crossmatch See Detail 12/06/21 12/06/21 06:02 06:02 MCV 102.0 H MCH 31.7 MCHC 31.1 RDW 15.8 Plt Count 188 MPV 10.2 Absolute Neuts (auto) 4.7 Absolute Nucleated RBC 0.000 Nucleated RBC % (auto) 0.0 Anion Gap 17 Estim Creat Clear Calc 7.6 Estimated GFR 8 Random Glucose 88 Lactic Acid Calcium 8.8 D Iron 89 TIBC 192 L % Saturation 46 Unsat Iron Binding 103 Total Bilirubin 0.4 Direct Bilirubin 0.2 AST 9 ALT 6 Alkaline Phosphatase 96 D Total Protein 5.2 L Albumin 2.8 L Clozapine Norclozapine Blood Type Antibody Screen Crossmatch Assessment and Plan (1) Generalized seizure: Status: Acute (2) Acute on chronic anemia: Status: Acute (3) ESRD needing dialysis: Status: Acute Plan 76F presented with agitation, missed HD seizure disorder no recurrence of seizures since admission discontinue Keppra as it care is higher risk with psychiatric illnesses discussed with neurology, changed to Dilantin Acute on chronic anemia No clear bleeding source, likely from ESRD pending occult blood , no evidence of hemolysis Received 1 unit of blood, to give a 2nd unit for hemoglobin of 6.4 Monitor CBC with target 7-8 ESRD HD per nephrology recommendations bipolar plan for geripsych placement pending bed availability hypernatremia resolved orthostatic hyoptension midodrine hypothyroid synthroid pafib pacheco miranda history of breast ca tamoxifen full code reason for continued hospitalization: breakthrough seizure that was controlled, awaiting safe discharge plan. Quality Stroke Does the patient have a stroke diagnosis?: No VTE Prior VTE?: No VTE Risk Level:: Medical - moderate - high VTE Device Contraindication: Treatment Not Indicated VTE Drug Contraindication: N/A - Med Ordered
[2021-12-06] MEDS: Tamoxifen Citrate 10 MG TABLET 20 MG PO (13:25)
--- NOTE | 2021-12-06 14:11 | MHC.CM.PN ---
Addendum entered by Noelle Maher 12/06/21 15:39: CM RECEIVED A CALL FROM CHERYL AT [facility] WHO REPORTS THE PT IS ACTIVE WITH THEM WHEN DISCUSSING DC PLAN, SHE REPORTS THEY HAVE ONLY BEEN ABLE TO SEE HER A COUPLE OF TIMES BECAUSE SHE KEEPS REPRESENTING TO THE HOSPITAL. SHE REPORTS SHE FEELS THE PT WOULD BENEFIT FROM [facility]. SHE ALSO DISCUSSES THE AMOUNT OF STRESS PTS HAS BEEN UNDER AND HIS CONCERNS FOR NOT BEING ABLE TO CARE FOR HER UNTIL SHE IS STABILIZED PSYCHIATRICALLY. Original Note: PER CARE NOTES, PT DC PLAN TBD BY FOLLOW UP PSYCHIATRY CONSULT [facility] VS HOME WITH SERVICES/FAMILY CARE. CONTINUES TO VERBALIZE CONCERN AROUND TAKING HER HOME IN HER CURRENT STATE
--- NOTE | 2021-12-06 15:45 | PC.NURSE ---
Pt arrived back to unit from dialysis . Pt at bedside . pt using explicate language . Pt took a quarter of her donut and threw it at her . Pt yelling at staff to leave her alone .
--- NOTE | 2021-12-06 15:48 | MHC.CM.PN ---
Addendum entered by Dina Kaur 12/06/21 15:51: ACCORDING TO CONVERSATION WITH CARE PROGRAMMING SPECIALIST AND IN-ROOM CAMERA MONITOR, PATIENT BECAME VERBALLY AGGRESSIVE, THREW FOOD AT HER SPOUSE THIS WEEKEND. WHEN SPOUSE WAS BENT OVER THE BED, PATIENT KICKED HIM CAUSING HIM TO FALL ONTO THE BED. TODAY, 12/06/21, PATIENT REPORTEDLY THREW MORE FOOD AT SPOUSE. Original Note: ON 12/05/21, THIS SHRINK PIT SUPERVISOR AND WESTERN PHILOSOPHY PROFESSOR WENT TO PATIENT ROOM TO FIND PATIENT WAS LAYING ON BED MAT COVERED WITH FECES. PATIENT HAS FECES IN HER HAIR AND AROUND HER MOUTH, AND WELL ON THE BED SHEETS FOUND AT THE BOTTOM OF BED. FECES FOUND UNDER PATIENT'S FINGER NAILS THIS SHRINK PIT SUPERVISOR STARTED TO SPEAK TO PATIENT,, PATIENT LOOKED AND STATED I CANNOT HELP MYSELF. I AM SICK .
[2021-12-06 18:19] LABS: Hematocrit 23.6 % (37.0-47.0); Hemoglobin 8.2 g/dl (12.0-16.0)
[2021-12-06] MEDS: cloZAPine 100 MG TABLET 200 MG PO (19:24)
[2021-12-06] MEDS: hydrOXYzine HCL 50 MG TABLET PO (19:24)
[2021-12-06] MEDS: lamoTRIgine 25 MG TABLET 150 MG PO (19:25)
[2021-12-06] MEDS: clonazePAM 1 MG TABLET PO (19:25)
[2021-12-06] MEDS: Melatonin 3 MG TABLET 6 MG PO (19:26)
[2021-12-06 21:28] LABS: OBS Int Ctl Valid YES; OBS1 POSITIVE (NEGATIVE)
[2021-12-07] VITALS (15 sets, daily range): BP systolic 86–128; BP diastolic 44–64; PULSE 83–102; RESP 16–20; TEMP 36.3–37.5; O2SAT 95–99
[2021-12-07] MEDS: ondansetron HCL 4 MG/2 ML VIAL IVPUSH (05:10)
[2021-12-07 06:05] LABS: Mean Corpuscular Hemoglobin 31.6 pg (27.0-33.0); Mean Corpuscular Volume 95.6 fL (80.0-98.0); Mean Platelet Volume 10.5 fL (9.4-12.3); NRBC Pct Auto 0.6 /100WBC (0.0-0.2); Platelet Count 176 X10*3/uL (160-400); Red Blood Count 2.06 X10*6/uL (4.20-5.50); Red Cell Distribution Width 15.5 % (11.0-16.0); White Blood Count 7.1 X10*3/uL (4.8-10.8)
[2021-12-07 06:12] LABS: Hemoglobin 6.5 g/dl (12.0-16.0)
[2021-12-07 06:13] LABS: Hematocrit 19.7 % (37.0-47.0)
--- NOTE | 2021-12-07 06:20 | PM.EVENT ---
Event Note Date of Service: 12/07/21 Event Note: Pain showed H&H of 6.5 and 19.7, patient asymptomatic at this time. She did have 1 episode of dark black stool this morning. Occult stool positive. At this time will hold Eliquis, transfuse 1 unit of PRBC, make NPO, consult GI. Will order pantoprazole b.i.d.
[2021-12-07] MEDS: Pantoprazole Sodium 40 MG/10 ML VIAL IVPUSH ×2 (07:04→15:41)
[2021-12-07] MEDS: cloZAPine 25 MG TABLET 50 MG PO ×2 (08:27→18:50)
[2021-12-07] MEDS: Sevelamer Carbonate Tablet 800 MG TABLET 1600 MG PO ×3 (08:27→18:50)
[2021-12-07] MEDS: OLANZapine 5 MG TABLET PO ×2 (08:27→20:22)
[2021-12-07] MEDS: Levothyroxine Sodium 150 MCG TABLET PO (08:27)
[2021-12-07] MEDS: Dronedarone HCl 400 MG TABLET PO ×2 (08:27→20:24)
[2021-12-07] MEDS: Benzonatate 100 MG CAPSULE PO ×3 (08:27→20:23)
[2021-12-07] MEDS: Midodrine HCl 5 MG TABLET PO ×2 (08:27→20:22)
[2021-12-07] MEDS: 0.9 % Sodium Chloride Flush 3 ML SYRINGE IVFLUSH ×4 (08:28→23:45)
[2021-12-07] MEDS: Valproic Acid (as Sodium Salt) 250 MG in Dextrose 5 % 50 ML 52.5 MG IV ×3 (08:28→23:45)
--- NOTE | 2021-12-07 09:26 | PM.PNNEP ---
Subjective Subjective Date of Service: 12/07/21 Principal diagnosis: ESRD on HD Interval history: Noted worsening anemia overnight. Physical Exam Vital Signs: Vital Signs: Last Vital Signs Temp 99.0 F 12/07/21 07:31 Pulse 92 12/07/21 07:31 Resp 20 12/07/21 07:31 BP 113/53 L 12/07/21 07:31 Pulse Ox 99 12/07/21 07:31 BMI result Body Mass Index 20.5 Const: General: no acute distress Orientation/consciousness: patient oriented x3 HEENT: Head: Yes normocephalic and Yes atraumatic Neck: Neck: Yes no JVD Resp: Effort & Inspection: normal respiratory effort Auscultation: clear to auscultation bilaterally Cardio: Jugular venous distension: no JVD Rate: regular rate Rhythm: regular rhythm Heart sounds: S1 normal heart sound present and S2 normal heart sound present GI: Auscultation: normal bowel sounds Neuro: General: patient oriented x3 and no focal motor deficits Extrem: General: Yes no clubbing, cyanosis or edema Objective Data Labs CBC & Chem 7: 12/07/21 05:46 12/06/21 06:02 Labs: Laboratory Results - last 24 hr 12/04/21 12/06/21 12/06/21 14:58 06:02 17:54 WBC RBC Hgb 8.2 L D Hct 23.6 L MCV MCH MCHC RDW Plt Count MPV Absolute Nucleated RBC Nucleated RBC % (auto) Total Bilirubin 0.4 Direct Bilirubin 0.2 AST 9 ALT 6 Alkaline Phosphatase 96 D Total Protein 5.2 L Albumin 2.8 L Stool Occult Blood Blood Type O Positive Antibody Screen NEGATIVE Crossmatch See Detail 12/06/21 12/07/21 21:09 05:46 WBC 7.1 RBC 2.06 L Hgb 6.5 L* D Hct 19.7 L* MCV 95.6 D MCH 31.6 MCHC 33.0 RDW 15.5 Plt Count 176 MPV 10.5 Absolute Nucleated RBC 0.040 H Nucleated RBC % (auto) 0.6 H Total Bilirubin Direct Bilirubin AST ALT Alkaline Phosphatase Total Protein Albumin Stool Occult Blood POSITIVE Blood Type Antibody Screen Crossmatch Procedures Date of Service Date of Service: 12/07/21 Assessment & Plan Assessment and plan (1) ESRD needing dialysis: Status: Acute Plan 76F presented with agitation, missed HD prior to presentation. Now on TTS schedule. 1. ESRD: cont HD T,TH,S 2.Anemia - prbc transfusion this am. Iron replete. Continue STEVAN 10,000 units tiw with dialysis. GI following. eliquis held by primary team. 3.Hypotension - r/o infection. maintain hemodynamics during HD. Avoid aggressive UF. May need to be kept net even. midodrine for bp support during HD. REC: contHD 3x/w? Time Spent With Patient Time: Total time spent is greater than 50% in coordination of care (as documented) at patient's floor/unit and/or counseling patient: Progress Note: Quality Stroke Does the patient have a stroke diagnosis?: No
--- NOTE | 2021-12-07 11:27 | HO.PM.IMPN ---
Subjective Subjective Date of Service: 12/07/21 Interval History: the patient was seen and evaluated this morning laying in her bed,looks weak and tired hemoglobin dropped again to 6.4 with evidence of melena overnight No reported other overnight events. Systemic review: No fever, chills but reported generalized weakness No chest pain, palpitation No shortness of breath or coughing No abdominal pain, nausea or vomiting No urinary symptoms Physical Exam Vital Signs: Vital Signs: Last Vital Signs Temp 98.4 F 12/07/21 11:10 Pulse 92 12/07/21 11:10 Resp 20 12/07/21 11:10 BP 91/45 L 12/07/21 11:10 Pulse Ox 99 12/07/21 07:31 BMI result Body Mass Index 20.5 Const: Other: Constitutional : Alert and interactive, mildly distressed Neck : Normal inspection, Supple Cardiovascular : RRR, S1 S2, no lower extremity edema Respiratory :? Fair bilateral air entry,? no crackles, wheezes or rhonchi Gastrointestinal:? soft, lax, Normal bowel sounds, Non tender Skin : Warm, Dry, PermCath in place Neurological : Alert &? oriented about self and place, No focal deficit Psychiatric, mildly distressed but less agitated Objective Data Active Medications Acetaminophen (Acetaminophen 325 Mg Tablet) 650 mg PO BID PRN PRN Reason: Pain (Scale Score 1-3) Last Admin: 12/06/21 23:37 Dose: 650 mg Documented by: BRANDON Albuterol Sulfate (Albuterol Sulfate 90 Mcg 8 Gm Inhaler) 2 puff INHALE RQ4H PRN PRN Reason: Wheezing Benzonatate (Benzonatate 100 Mg Capsule) 100 mg PO TID [facility] Last Admin: 12/07/21 08:27 Dose: 100 mg Documented by: GRETA Clozapine (Clozapine 25 Mg Tablet) 50 mg PO BID@1000,1800 [facility] Last Admin: 12/07/21 08:27 Dose: 50 mg Documented by: GRETA Clozapine (Clozapine 100 Mg Tablet) 200 mg PO BEDTIME [facility] Last Admin: 12/06/21 19:24 Dose: 200 mg Documented by: BRANDON Diphenhydramine HCl (Diphenhydramine Hcl 25 Mg Tablet) 25 mg PO Q6H PRN PRN Reason: prurutis Last Admin: 12/06/21 19:25 Dose: 25 mg Documented by: BRANDON Dronedarone (Dronedarone Hcl 400 Mg Tablet) 400 mg PO BID [facility] Last Admin: 12/07/21 08:27 Dose: 400 mg Documented by: GRETA Epoetin Tim (Epoetin Tim 10,000 Unit/Ml Vial) 10,000 unit IVPUSH [facility]@1645 [facility] Last Admin: 12/06/21 15:03 Dose: Not Given Documented by: MAULIK Non-Admin Reason: given in dialysis Hydrocortisone (Hydrocortisone 1 % Cream 28.35 Gm Tube) 1 appl TOPICAL BID PRN PRN Reason: skin irritation Hydroxyzine HCl (Hydroxyzine Hcl 50 Mg Tablet) 50 mg PO BEDTIME PRN PRN Reason: for insomnia Last Admin: 12/06/21 19:24 Dose: 50 mg Documented by: BRANDON Valproic Acid 250 mg/ Dextrose 52.5 mls @ 52.5 mls/hr IV Q8H [facility] Last Infusion: 12/07/21 09:32 Dose: 0 mls/hr Documented by: GRETA Lamotrigine (Lamotrigine 25 Mg Tablet) 150 mg PO BEDTIME [facility] Last Admin: 12/06/21 19:25 Dose: 150 mg Documented by: BRANDON Levothyroxine Sodium (Levothyroxine Sodium 150 Mcg Tablet) 150 mcg PO DAILY [facility] Last Admin: 12/07/21 08:27 Dose: 150 mcg Documented by: GRETA Lorazepam (Lorazepam 2 Mg/Ml Vial) 1 mg IVPUSH Q4H PRN PRN Reason: seizure Melatonin (Melatonin 3 Mg Tablet) 6 mg PO BEDTIME PRN PRN Reason: Insomnia Last Admin: 12/06/21 19:26 Dose: 6 mg Documented by: BRANDON Midodrine (Midodrine Hcl 5 Mg Tablet) 5 mg PO BID [facility] Last Admin: 12/07/21 08:27 Dose: 5 mg Documented by: GRETA Olanzapine (Olanzapine 5 Mg Tablet) 5 mg PO BID [facility] Last Admin: 12/07/21 08:27 Dose: 5 mg Documented by: GRETA Olanzapine (Olanzapine 5 Mg Tablet) 5 mg PO BID PRN PRN Reason: tawny, agitation Last Admin: 12/06/21 00:12 Dose: 5 mg Documented by: BRANDON Ondansetron HCl (Ondansetron Hcl 4 Mg/2 Ml Vial) 4 mg IVPUSH Q8H PRN PRN Reason: Nausea and Vomiting Last Admin: 12/07/21 05:10 Dose: 4 mg Documented by: BRANDON Pantoprazole Sodium (Pantoprazole Sodium 40 Mg/10 Ml Vial) 40 mg IVPUSH BID@0630,1630 [facility] Last Admin: 12/07/21 07:04 Dose: 40 mg Documented by: BRANDON Pharmacy Consult (Consult Rx Perform Med Rec) 1 each MISCELLANE ONCE PRN PRN Reason: Consult order Senna (Sennosides 8.6 Mg Tablet) 17.2 mg PO BEDTIME PRN PRN Reason: Constipation Sevelamer Carbonate (Sevelamer Carbonate Tablet 800 Mg Tablet) 1,600 mg PO TIDWM [facility] Last Admin: 12/07/21 08:27 Dose: 1,600 mg Documented by: GRETA Sodium Chloride (0.9 % Sodium Chloride Flush 3 Ml Syringe) 3 ml IVFLUSH QSHIFT [facility] Last Admin: 12/07/21 08:28 Dose: 3 ml Documented by: GRETA Tamoxifen Citrate (Tamoxifen Citrate 10 Mg Tablet) 20 mg PO DAILY@1400 [facility] Last Admin: 12/06/21 13:25 Dose: 20 mg Documented by: MAULIK Labs CBC & Chem 7: 12/07/21 05:46 12/06/21 06:02 Labs: Laboratory Results - last 24 hr 12/04/21 12/06/21 12/07/21 14:58 21:09 05:46 MCV 95.6 D MCH 31.6 MCHC 33.0 RDW 15.5 Plt Count 176 MPV 10.5 Absolute Nucleated RBC 0.040 H Nucleated RBC % (auto) 0.6 H Stool Occult Blood POSITIVE Blood Type O Positive Antibody Screen NEGATIVE Crossmatch See Detail Assessment and Plan (1) ESRD needing dialysis: Status: Acute (2) Generalized seizure: Status: Acute (3) Acute on chronic anemia: Status: Acute (4) GI bleed: Status: Acute Plan 76F presented with agitation, missed HD Acute on chronic blood-loss anemia secondary to GI bleeding positive occult blood , no evidence of hemolysis received total of 5 units of blood, last hemoglobin 6.4 to give 2 units today hold anticoagulation GI evaluation Started pantoprazole IV b.i.d. Monitor CBC with target 7-8 seizure disorder no recurrence of seizures since admission discontinue Keppra as it care is higher risk with psychiatric illnesses discussed with neurology, changed to Dilantin ESRD HD per nephrology recommendations bipolar plan for geripsych placement pending bed availability hypernatremia resolved hyoptension due to general deconditioning, decreased p.o. intake Continue midodrine and IV fluid as needed hypothyroid synthroid pafib Hold Eliquis continue Multaq history of breast ca tamoxifen full code reason for continued hospitalization: acute GI bleed which need blood transfusion and GI evaluation with possible need for endoscopy. awaiting safe discharge plan Given high chills of decompensation and readmission. Quality Stroke Does the patient have a stroke diagnosis?: No VTE Prior VTE?: No VTE Risk Level:: Medical - moderate - high VTE Device Contraindication: Treatment Not Indicated VTE Drug Contraindication: N/A - Med Ordered
--- NOTE | 2021-12-07 12:08 | P.CNGI_ITS ---
History of Present Illness Data of Consult Service Date: 12/07/21 Requesting physician: Yasir Parisi Primary Care Provider: Gabriel Acosta MD HPI Reason for consult: anemia 76-year-old female with a past medical history of hypertension, hyperlipidemia, atrial fibrillation, ESRD on hemodialysis, hypothyroidism, anxiety, depression, bipolar with manic episodes, history of pulmonary embolism, history of SBO, seizures, COPD, history of ESBL E coli UTI, low grade bladder ca, and breast ca; who I am seeing for assessment for anemia. She was initially admitted 1 week ago with agitation and having missed HD sessions. she had her meds titrated for seizure d/o and waiting placement for psych gamal care. During this time, HGB had been trending down whilst on eliquis and she had some black colored stools. HGB went to around 6 g/dl having been around 7-8 g/dl range. She denies abdominal pain, no nausea, no fevers or chills and no SOB or chest pain. She is currently getting 2 units of PRBC and eliquis was just stopped today. She has not been on any nsaids. Review of Systems Review of Systems: Constitutional : No Weight loss, No Fever, No Chills ENT/Mouth : No sore throat, No Rhinorrhea Eyes: No Swelling, No Redness Cardiovascular : No Chest Pain, No SOB, No Edema Respiratory : No Cough, No Sputum, No Wheezing Gastrointestinal : see HPI Genitourinary : NO Dysuria, No Urinary Frequency, No Hematuria, No Urgency Musculoskeletal : No joint pain, No Myalgias, No Joint Swelling Skin : No Skin Lesions, No rash, bruises on arms and hands Neuro : No Weakness, No Numbness, No Dizziness, No Headache Psych : No Anxiety/Panic, No Depression Heme/Lymph: No Bruising, No Lymphadenopathy Endocrine : No Polyuria, No Polydipsia All other systems reviewed and are negative. [facility] Past Medical History Medical History Abdominal pain Acute UTI Arrhythmia Arthritis AV fistula Bacteremia due to Klebsiella pneumoniae Bipolar 1 disorder Bipolar disorder Bladder cancer Bowel obstruction Breast cancer Bronchopneumonia C. difficile diarrhea Cancer Chronic nausea Chronic respiratory failure COPD (chronic obstructive pulmonary disease) COVID-19 vaccine administered Dialysis patient Diarrhea Dysphagia ESRD (end stage renal disease) ESRD (end stage renal disease) on dialysis History of 2019 novel coronavirus disease (COVID-19) Hx of hypotension Hx of radiation therapy Hydronephrosis Hyperkalemia Hypothyroidism Invasive ductal carcinoma of breast Lab test negative for COVID-19 virus Lab test positive for detection of COVID-19 virus Leukocytosis MSSA bacteremia Paroxysmal A-fib Poor appetite Positive FIT (fecal immunochemical test) Pulmonary emboli Renal failure SBO (small bowel obstruction) Seizure SIRS (systemic inflammatory response syndrome) Thyroid disease Ureteral cancer Vomiting Wears dentures Family History Family History Father Dementia Mother Bipolar 1 disorder Brother Heart attack Other Mental health disorder Surgical History Surgical History History of abdominal surgery History of appendectomy History of back surgery History of bladder surgery (~06/2020) History of cholecystectomy History of esophagogastroduodenoscopy (EGD) History of hand surgery History of lumpectomy of left breast History of lumpectomy of right breast History of tonsillectomy Hx of colonoscopy Hx of foot surgery Social History Social History Household Members: Unknown / Unable to assess Housing: House Are you a primary manager managed care to a significant other at home: No Unable to assess alcohol history related to: Unable to respond Alcohol intake: never Patient Tobacco Use Status: Former Tobacco user Quit Date: 4 years ago Tobacco use type: Cigarette Cigarette Packs Per Day: 1.5 Cigarettes Per Day: 30.0 Years Smoked: 50 e-Cigarette/Vaping Use: Never Used Second Hand Smoke Exposure: No Currently Displaying Signs/Symptoms of Drug Intoxication Withdrawal: No Advance Directives: Yes Advance Directives on File: Yes Advance Directives Date on File: 01/24/21 Healthcare Proxy: Yes (pt's ) Guardian: No Do you have thoughts of harming others: None Do you have a plan to hurt others: No Plan Recently lost weight without trying: Unsure Nutrition Risks: No Nutritional Risk service: No Current occupational status: retired and disabled Sexual orientation: Straight/Heterosexual Cognitive needs: Yes (Walker/Wheelchair) Hearing needs: No Vision needs: Yes (readng glasses) Meds Allergies Allergy/AdvReac Type Severity Reaction Status Date / Time oxycodone Allergy Severe Anaphylaxis Verified 12/04/21 11:58 adhesive tape Allergy Intermediate Blister Verified 11/13/21 21:04 aspirin Allergy Intermediate RASH Verified 11/13/21 21:04 benztropine Allergy Intermediate RASH Verified 11/13/21 21:04 NSAIDS (Non-Steroidal Allergy Intermediate RASH Verified 11/13/21 21:04 Anti-Inflamma ziprasidone Allergy Intermediate UNKNOWN Verified 11/13/21 21:04 doxycycline AdvReac Vomiting Verified 11/13/21 21:04 Active Medications: Current Medications Acetaminophen (Acetaminophen 325 Mg Tablet) 650 mg PO BID PRN PRN Reason: Pain (Scale Score 1-3) Last Admin: 12/06/21 23:37 Dose: 650 mg Documented by: Albuterol Sulfate (Albuterol Sulfate 90 Mcg 8 Gm Inhaler) 2 puff INHALE RQ4H PRN PRN Reason: Wheezing Benzonatate (Benzonatate 100 Mg Capsule) 100 mg PO TID [facility] Last Admin: 12/07/21 08:27 Dose: 100 mg Documented by: Clozapine (Clozapine 25 Mg Tablet) 50 mg PO BID@1000,1800 [facility] Last Admin: 12/07/21 08:27 Dose: 50 mg Documented by: Clozapine (Clozapine 100 Mg Tablet) 200 mg PO BEDTIME [facility] Last Admin: 12/06/21 19:24 Dose: 200 mg Documented by: Diphenhydramine HCl (Diphenhydramine Hcl 25 Mg Tablet) 25 mg PO Q6H PRN PRN Reason: prurutis Last Admin: 12/06/21 19:25 Dose: 25 mg Documented by: Dronedarone (Dronedarone Hcl 400 Mg Tablet) 400 mg PO BID [facility] Last Admin: 12/07/21 08:27 Dose: 400 mg Documented by: Epoetin Tim (Epoetin Tim 10,000 Unit/Ml Vial) 10,000 unit [facility]4996 [facility] Last Admin: 12/06/21 15:03 Dose: Not Given Documented by: Hydrocortisone (Hydrocortisone 1 % Cream 28.35 Gm Tube) 1 appl TOPICAL BID PRN PRN Reason: skin irritation Hydroxyzine HCl (Hydroxyzine Hcl 50 Mg Tablet) 50 mg PO BEDTIME PRN PRN Reason: for insomnia Last Admin: 12/06/21 19:24 Dose: 50 mg Documented by: Valproic Acid 250 mg/ Dextrose 52.5 mls @ 52.5 mls/hr IV Q8H [facility] Last Infusion: 12/07/21 09:32 Dose: Infused Documented by: Lamotrigine (Lamotrigine 25 Mg Tablet) 150 mg PO BEDTIME [facility] Last Admin: 12/06/21 19:25 Dose: 150 mg Documented by: Levothyroxine Sodium (Levothyroxine Sodium 150 Mcg Tablet) 150 mcg PO DAILY [facility] Last Admin: 12/07/21 08:27 Dose: 150 mcg Documented by: Lorazepam (Lorazepam 2 Mg/Ml Vial) 1 mg IVPUSH Q4H PRN PRN Reason: seizure Melatonin (Melatonin 3 Mg Tablet) 6 mg PO BEDTIME PRN PRN Reason: Insomnia Last Admin: 12/06/21 19:26 Dose: 6 mg Documented by: Midodrine (Midodrine Hcl 5 Mg Tablet) 5 mg PO BID [facility] Last Admin: 12/07/21 08:27 Dose: 5 mg Documented by: Olanzapine (Olanzapine 5 Mg Tablet) 5 mg PO BID [facility] Last Admin: 12/07/21 08:27 Dose: 5 mg Documented by: Olanzapine (Olanzapine 5 Mg Tablet) 5 mg PO BID PRN PRN Reason: tawny, agitation Last Admin: 12/06/21 00:12 Dose: 5 mg Documented by: Ondansetron HCl (Ondansetron Hcl 4 Mg/2 Ml Vial) 4 mg IVPUSH Q8H PRN PRN Reason: Nausea and Vomiting Last Admin: 12/07/21 05:10 Dose: 4 mg Documented by: Pantoprazole Sodium (Pantoprazole Sodium 40 Mg/10 Ml Vial) 40 mg IVPUSH BID@0630,1630 [facility] Last Admin: 12/07/21 07:04 Dose: 40 mg Documented by: Pharmacy Consult (Consult Rx Perform Med Rec) 1 each MISCELLANE ONCE PRN PRN Reason: Consult order Senna (Sennosides 8.6 Mg Tablet) 17.2 mg PO BEDTIME PRN PRN Reason: Constipation Sevelamer Carbonate (Sevelamer Carbonate Tablet 800 Mg Tablet) 1,600 mg PO TIDWM [facility] Last Admin: 12/07/21 08:27 Dose: 1,600 mg Documented by: Sodium Chloride (0.9 % Sodium Chloride Flush 3 Ml Syringe) 3 ml IVFLUSH QSHIFT [facility] Last Admin: 12/07/21 08:28 Dose: 3 ml Documented by: Tamoxifen Citrate (Tamoxifen Citrate 10 Mg Tablet) 20 mg PO DAILY@1400 [facility] Last Admin: 12/06/21 13:25 Dose: 20 mg Documented by: Home Medications Medication Instructions Recorded Confirmed Last Taken Type clonazepam 1 mg tablet 1 mg PO BEDTIME 05/21/20 11/30/21 07/14/21 History lamotrigine 150 mg tablet 150 mg PO BEDTIME 05/21/20 11/30/21 10/18/21 History acetaminophen 325 mg tablet 650 mg PO BID PRN 05/22/20 11/30/21 03/19/21 History tamoxifen 20 mg tablet 20 mg PO DAILY@1400 07/15/21 11/30/21 10/19/21 09:00 History apixaban 2.5 mg tablet (Eliquis) 2.5 mg PO BID 09/03/21 11/30/21 11/30/21 History sevelamer carbonate 800 mg tablet 1,600 mg PO TIDWM tab 09/27/21 11/30/21 11/30/21 History dronedarone 400 mg tablet (Multaq) 1 tab PO BID 10/20/21 11/30/21 11/30/21 History albuterol sulfate 90 mcg/actuation 2 puff INHALATION Q4-6H PRN 11/01/21 11/30/21 Unknown History aerosol inhaler clozapine 100 mg tablet 200 mg PO BEDTIME 11/01/21 11/30/21 Unknown History levothyroxine 150 mcg tablet 1 tab PO DAILY 11/01/21 11/30/21 11/30/21 History melatonin 3 mg tablet 6 mg PO DAILY PRN 11/01/21 11/30/21 Unknown History umeclidinium 62.5 mcg-vilanterol 1 puff INHALATION DAILY 11/01/21 11/30/21 Unknown History 25 mcg/actuation powdr for inhalation (Anoro Ellipta) clozapine 25 mg tablet 2 tab PO BID 11/30/21 11/30/21 11/30/21 History olanzapine 5 mg tablet 1 tab PO BEDTIME 11/30/21 11/30/21 11/30/21 History Physical Exam Vital Signs: Vital Signs: Last Vital Signs Temp 98.2 F 12/07/21 11:30 Pulse 89 12/07/21 11:30 Resp 20 12/07/21 11:30 BP 90/48 L 12/07/21 11:30 Pulse Ox 96 12/07/21 11:36 BMI result Body Mass Index 20.5 EXAM: GENERAL: The patient is well developed and nontoxic. VITAL SIGNS:see workflow HEENT: Nonicteric sclerae, PERRLA, EOMI. Oropharynx clear. Moist mucous membranes. Conjunctivae appear well perfused. No thyroid mass. CHEST: Chest wall is nontender. HEART: Regular rate and rhythm without murmurs. LUNGS: Clear to auscultation bilaterally. ABDOMEN: Soft, positive bowel sounds, tender epigastrium, no organomegaly.no flank tenderness SKIN: No rash, + bruising, + purpura on arms NEUROLOGIC: Cranial nerves II-XII intact without motor/sensory deficit. Psych: tangential thought Extrem: General: Yes normal to inspection Results Labs CBC & Chem 7: 12/07/21 05:46 12/06/21 06:02 Labs: Short CBC 12/06/21 12/07/21 Range/Units 17:54 05:46 WBC 7.1 (4.8-10.8) X10*3/uL Hgb 8.2 L D 6.5 L* D (12.0-16.0) g/dl Hct 23.6 L 19.7 L* (37.0-47.0) % Plt Count 176 (160-400) X10*3/uL Assessment and Plan (1) Acute on chronic anemia: Status: Acute (2) Acute blood loss anemia: Status: Acute Plan 1/ Acute on chronic blood loss anemia from combination of GI blood loss possibly from PUD, dieulafoy, AVM, urine blood loss (UA pos for RBC--hx of bladder ca) and epidermal blood losses, exacerbated by eliquis use. She is currently hemodynamically stable and the eliquis was just stopped today. PLAN: 1/ Can allow clears 2/ x2 IV access points, transfuse for hgb 8-9 g/dl 3/ PPi BID e.g pantoprazole 40 mg IV BID 4/ plan for EGD Friday to allow time for eliquis to be cleared and allow optimization of any potential endoscopic treatment, if she decompensates further then can consider emergent EGD over weekend with FFP or prothrombin complex administration with Vit K, cont with HD to allow clearance of eliquis. Procedures Date of Service Date of Service: 12/07/21
--- NOTE | 2021-12-07 12:11 | MHC.CM.PN ---
PLAN ARE GOALS OF CARE DISCUSSION WITH SPOUSE AND TRANSFUSION POSSIBLE INPATIENT PSYCHIATRIC STAY
[2021-12-07] MEDS: Tamoxifen Citrate 10 MG TABLET 20 MG PO (13:58)
[2021-12-07] MEDS: diphenhydrAMINE HCL 25 MG TABLET PO ×2 (13:59→23:53)
[2021-12-07] MEDS: Acetaminophen 325 MG TABLET 650 MG PO (13:59)
[2021-12-07] MEDS: cloZAPine 100 MG TABLET 200 MG PO (20:23)
[2021-12-07] MEDS: lamoTRIgine 25 MG TABLET 150 MG PO (20:23)
[2021-12-07 21:43] LABS: Hemoglobin 8.5 g/dl (12.0-16.0)
[2021-12-07] MEDS: Melatonin 3 MG TABLET 6 MG PO (23:53)
[2021-12-07] MEDS: hydrOXYzine HCL 50 MG TABLET PO (23:53)
[2021-12-08] VITALS (14 sets, daily range): BP systolic 92–140; BP diastolic 41–89; PULSE 71–94; RESP 14–20; TEMP 36.1–36.9; O2SAT 94–100
--- NOTE | 2021-12-08 03:46 | PC.NURSE ---
Pt had incont melenic BM x1 moderate amount, VSS, Ivline was pulled out by pt, very hard stick even the use of vein scanner, Nsg script supervisor notified, other staff tried but failed.
[2021-12-08] MEDS: Pantoprazole Sodium 40 MG/10 ML VIAL IVPUSH ×2 (05:33→16:00)
[2021-12-08 06:34] LABS: Mean Corpuscular HGB Conc 34.3 g/dl (31.0-35.0); Mean Corpuscular Hemoglobin 32.3 pg (27.0-33.0); Mean Platelet Volume 10.1 fL (9.4-12.3); Platelet Count 144 X10*3/uL (160-400); Red Blood Count 2.17 X10*6/uL (4.20-5.50); Red Cell Distribution Width 15.7 % (11.0-16.0); White Blood Count 2.3 X10*3/uL (4.8-10.8)
[2021-12-08 06:37] LABS: Hematocrit 20.4 % (37.0-47.0)
--- NOTE | 2021-12-08 06:52 | PM.EVENT ---
Event Note Date of Service: 12/08/21 Event Note: rpt hgb at 9 pm stable, this Am hgb 7. pt reported to have pasty drak stool episode overnight. HDS
[2021-12-08 06:54] LABS: Anion Gap 12 (12-20); Blood Urea Nitrogen 63 mg/dL (9-16); Calcium 8.5 mg/dL (8.4-10.2); Carbon Dioxide 26 mmol/L (22-29); Chloride 105 mmol/L (96-108); Estimated Glomerular Filt Rate 16; Glucose Random 90 mg/dL (60-115); Potassium 3.8 mmol/L (3.3-5.1); Sodium 139 mmol/L (135-145)
[2021-12-08] MEDS: Acetaminophen 325 MG TABLET 650 MG PO (08:13)
[2021-12-08] MEDS: diphenhydrAMINE HCL 25 MG TABLET PO (08:13)
[2021-12-08 09:39] LABS: Bilirubin Total 0.4 mg/dL (0.0-1.0); Lactate Dehydrogenase 113 U/L (122-220)
[2021-12-08] MEDS: Sevelamer Carbonate Tablet 800 MG TABLET 1600 MG PO ×2 (09:40→18:02)
[2021-12-08] MEDS: Midodrine HCl 5 MG TABLET PO ×2 (09:41→19:49)
[2021-12-08] MEDS: cloZAPine 25 MG TABLET 50 MG PO ×2 (09:41→18:02)
[2021-12-08] MEDS: Dronedarone HCl 400 MG TABLET PO ×2 (09:41→19:49)
[2021-12-08] MEDS: Levothyroxine Sodium 150 MCG TABLET PO (09:41)
[2021-12-08] MEDS: OLANZapine 5 MG TABLET PO ×2 (09:41→19:48)
[2021-12-08] MEDS: Benzonatate 100 MG CAPSULE PO ×3 (09:41→19:49)
[2021-12-08] MEDS: 0.9 % Sodium Chloride Flush 3 ML SYRINGE IVFLUSH ×2 (09:43→15:34)
[2021-12-08] MEDS: Valproic Acid (as Sodium Salt) 250 MG in Dextrose 5 % 50 ML 52.5 MG IV (09:46)
--- NOTE | 2021-12-08 12:17 | MHC.SHP ---
Pre-Procedural Eval Section A Date of Service: 12/08/21 The patient is an INPATIENT: Yes The History & Physical has been completed within 30 days and I have reviewed it.: Yes Section B Chief Complaint: ESRD/agitation Allergies: Allergies Allergy/AdvReac Type Severity Reaction Status Date / Time oxycodone Allergy Severe Anaphylaxis Verified 12/04/21 11:58 adhesive tape Allergy Intermediate Blister Verified 11/13/21 21:04 aspirin Allergy Intermediate RASH Verified 11/13/21 21:04 benztropine Allergy Intermediate RASH Verified 11/13/21 21:04 NSAIDS (Non-Steroidal Allergy Intermediate RASH Verified 11/13/21 21:04 Anti-Inflamma ziprasidone Allergy Intermediate UNKNOWN Verified 11/13/21 21:04 doxycycline AdvReac Vomiting Verified 11/13/21 21:04 Plan Diagnosis/Plan: Unchanged I have reviewed the history and physical and performed a pertinent physical examination on my patient. No changes have occurred unless specified.
--- NOTE | 2021-12-08 12:59 | HO.ANESPROP2 ---
[facility] Active Problems Active Problems: All Active Problems (Updated 12/07/21 @ 14:28 by Darrell Lira MD) Acute blood loss anemia (Acute) GI bleed (Acute) Generalized seizure (Acute) Agitation (Acute) ESRD needing dialysis (Acute) Bipolar 1 disorder (Acute) Osteoarthritis (Acute) Osteopenia (Acute) Cellulitis (Acute) CKD (chronic kidney disease) (Acute) Acute on chronic anemia (Acute) Acquired hypothyroidism (Acute) Wound of abdomen (Acute) Paroxysmal A-fib (Acute) Chronic respiratory failure (Acute) Hematuria (Acute) Bladder cancer (Acute) Renal hematoma (Acute) Acute hyperkalemia (Acute) Breast cancer, right breast (Acute) Bronchopneumonia (Acute) Dysphagia (Acute) GERD (gastroesophageal reflux disease) (Acute) Sepsis (Acute) Anemia (Acute) Heme positive stool (Acute) Constipation (Acute) Invasive ductal carcinoma of breast (Acute) Chronic nausea (Acute) Positive FIT (fecal immunochemical test) (Acute) MSSA bacteremia (Acute) Past Medical History Medical History Abdominal pain Acute UTI Arrhythmia Arthritis AV fistula Bacteremia due to Klebsiella pneumoniae Bipolar 1 disorder Bipolar disorder Bladder cancer Bowel obstruction Breast cancer Bronchopneumonia C. difficile diarrhea Cancer Chronic nausea Chronic respiratory failure COPD (chronic obstructive pulmonary disease) COVID-19 vaccine administered Dialysis patient Diarrhea Dysphagia ESRD (end stage renal disease) ESRD (end stage renal disease) on dialysis History of 2019 novel coronavirus disease (COVID-19) Hx of hypotension Hx of radiation therapy Hydronephrosis Hyperkalemia Hypothyroidism Invasive ductal carcinoma of breast Lab test negative for COVID-19 virus Lab test positive for detection of COVID-19 virus Leukocytosis MSSA bacteremia Paroxysmal A-fib Poor appetite Positive FIT (fecal immunochemical test) Pulmonary emboli Renal failure SBO (small bowel obstruction) Seizure SIRS (systemic inflammatory response syndrome) Thyroid disease Ureteral cancer Vomiting Wears dentures Family History Family History Father Dementia Mother Bipolar 1 disorder Brother Heart attack Other Mental health disorder Family history of problems with anesthesia: No Surgical History Surgical History History of abdominal surgery History of appendectomy History of back surgery History of bladder surgery (~06/2020) History of cholecystectomy History of esophagogastroduodenoscopy (EGD) History of hand surgery History of lumpectomy of left breast History of lumpectomy of right breast History of tonsillectomy Hx of colonoscopy Hx of foot surgery History of Problems with Anesthesia: No Social History Social History Household Members: Unknown / Unable to assess Housing: House Are you a primary patient care technician instructor to a significant other at home: No Unable to assess alcohol history related to: Unable to respond Alcohol intake: never Patient Tobacco Use Status: Former Tobacco user Quit Date: 4 years ago Tobacco use type: Cigarette Cigarette Packs Per Day: 1.5 Cigarettes Per Day: 30.0 Years Smoked: 50 e-Cigarette/Vaping Use: Never Used Second Hand Smoke Exposure: No Currently Displaying Signs/Symptoms of Drug Intoxication Withdrawal: No Advance Directives: Yes Advance Directives on File: Yes Advance Directives Date on File: 01/24/21 Healthcare Proxy: Yes (pt's ) Guardian: No Do you have thoughts of harming others: None Do you have a plan to hurt others: No Plan Recently lost weight without trying: Unsure Nutrition Risks: No Nutritional Risk service: No Current occupational status: retired and disabled Sexual orientation: Straight/Heterosexual Cognitive needs: Yes (Walker/Wheelchair) Hearing needs: No Vision needs: Yes (readng glasses) Meds Allergies Allergy/AdvReac Type Severity Reaction Status Date / Time oxycodone Allergy Severe Anaphylaxis Verified 12/04/21 11:58 adhesive tape Allergy Intermediate Blister Verified 11/13/21 21:04 aspirin Allergy Intermediate RASH Verified 11/13/21 21:04 benztropine Allergy Intermediate RASH Verified 11/13/21 21:04 NSAIDS (Non-Steroidal Allergy Intermediate RASH Verified 11/13/21 21:04 Anti-Inflamma ziprasidone Allergy Intermediate UNKNOWN Verified 11/13/21 21:04 doxycycline AdvReac Vomiting Verified 11/13/21 21:04 Active Medications: Current Medications Acetaminophen (Acetaminophen 325 Mg Tablet) 650 mg PO BID PRN PRN Reason: Pain (Scale Score 1-3) Last Admin: 12/08/21 08:13 Dose: 650 mg Documented by: Albuterol Sulfate (Albuterol Sulfate 90 Mcg 8 Gm Inhaler) 2 puff INHALE RQ4H PRN PRN Reason: Wheezing Benzonatate (Benzonatate 100 Mg Capsule) 100 mg PO TID [facility] Last Admin: 12/08/21 09:41 Dose: 100 mg Documented by: Clozapine (Clozapine 25 Mg Tablet) 50 mg PO BID@1000,1800 [facility] Last Admin: 12/08/21 09:41 Dose: 50 mg Documented by: Clozapine (Clozapine 100 Mg Tablet) 200 mg PO BEDTIME [facility] Last Admin: 12/07/21 20:23 Dose: 200 mg Documented by: Diphenhydramine HCl (Diphenhydramine Hcl 25 Mg Tablet) 25 mg PO Q6H PRN PRN Reason: prurutis Last Admin: 12/08/21 08:13 Dose: 25 mg Documented by: Dronedarone (Dronedarone Hcl 400 Mg Tablet) 400 mg PO BID [facility] Last Admin: 12/08/21 09:41 Dose: 400 mg Documented by: Epoetin Tim (Epoetin Tim 10,000 Unit/Ml Vial) 10,000 unit IVPUSH TUTHSA@1645 [facility] Last Admin: 12/06/21 15:03 Dose: Not Given Documented by: Hydrocortisone (Hydrocortisone 1 % Cream 28.35 Gm Tube) 1 appl TOPICAL BID PRN PRN Reason: skin irritation Hydroxyzine HCl (Hydroxyzine Hcl 50 Mg Tablet) 50 mg PO BEDTIME PRN PRN Reason: for insomnia Last Admin: 12/07/21 23:53 Dose: 50 mg Documented by: Lamotrigine (Lamotrigine 25 Mg Tablet) 150 mg PO BEDTIME [facility] Last Admin: 12/07/21 20:23 Dose: 150 mg Documented by: Levothyroxine Sodium (Levothyroxine Sodium 150 Mcg Tablet) 150 mcg PO DAILY [facility] Last Admin: 12/08/21 09:41 Dose: 150 mcg Documented by: Lorazepam (Lorazepam 2 Mg/Ml Vial) 1 mg IVPUSH Q4H PRN PRN Reason: seizure Melatonin (Melatonin 3 Mg Tablet) 6 mg PO BEDTIME PRN PRN Reason: Insomnia Last Admin: 12/07/21 23:53 Dose: 6 mg Documented by: Midodrine (Midodrine Hcl 5 Mg Tablet) 5 mg PO BID [facility] Last Admin: 12/08/21 09:41 Dose: 5 mg Documented by: Olanzapine (Olanzapine 5 Mg Tablet) 5 mg PO BID [facility] Last Admin: 12/08/21 09:41 Dose: 5 mg Documented by: Olanzapine (Olanzapine 5 Mg Tablet) 5 mg PO BID PRN PRN Reason: tawny, agitation Last Admin: 12/06/21 00:12 Dose: 5 mg Documented by: Ondansetron HCl (Ondansetron Hcl 4 Mg/2 Ml Vial) 4 mg IVPUSH Q8H PRN PRN Reason: Nausea and Vomiting Last Admin: 12/07/21 05:10 Dose: 4 mg Documented by: Pantoprazole Sodium (Pantoprazole Sodium 40 Mg/10 Ml Vial) 40 mg IVPUSH BID@0630,1630 [facility] Last Admin: 12/08/21 05:33 Dose: 40 mg Documented by: Pharmacy Consult (Consult Rx Perform Med Rec) 1 each MISCELLANE ONCE PRN PRN Reason: Consult order Senna (Sennosides 8.6 Mg Tablet) 17.2 mg PO BEDTIME PRN PRN Reason: Constipation Sevelamer Carbonate (Sevelamer Carbonate Tablet 800 Mg Tablet) 1,600 mg PO TIDWM [facility] Last Admin: 12/08/21 09:40 Dose: 1,600 mg Documented by: Sodium Chloride (0.9 % Sodium Chloride Flush 3 Ml Syringe) [facility] Last Admin: 12/08/21 09:43 Dose: 3 ml Documented by: Tamoxifen Citrate (Tamoxifen Citrate 10 Mg Tablet) 20 mg PO DAILY@1400 [facility] Last Admin: 12/07/21 13:58 Dose: 20 mg Documented by: Valproic Acid (Valproic Acid (As Sodium Salt) 250 Mg/5 Ml Solution) 250 mg PO TID [facility] Home Medications Medication Instructions Recorded Confirmed Last Taken Type clonazepam 1 mg tablet 1 mg PO BEDTIME 05/21/20 11/30/21 07/14/21 History lamotrigine 150 mg tablet 150 mg PO BEDTIME 05/21/20 11/30/21 10/18/21 History acetaminophen 325 mg tablet 650 mg PO BID PRN 05/22/20 11/30/21 03/19/21 History tamoxifen 20 mg tablet 20 mg PO DAILY@1400 07/15/21 11/30/21 10/19/21 09:00 History apixaban 2.5 mg tablet (Eliquis) 2.5 mg PO BID 09/03/21 11/30/21 11/30/21 History sevelamer carbonate 800 mg tablet 1,600 mg PO TIDWM tab 09/27/21 11/30/21 11/30/21 History dronedarone 400 mg tablet (Multaq) 1 tab PO BID 10/20/21 11/30/21 11/30/21 History albuterol sulfate 90 mcg/actuation 2 puff INHALATION Q4-6H PRN 11/01/21 11/30/21 Unknown History aerosol inhaler clozapine 100 mg tablet 200 mg PO BEDTIME 11/01/21 11/30/21 Unknown History levothyroxine 150 mcg tablet 1 tab PO DAILY 11/01/21 11/30/21 11/30/21 History melatonin 3 mg tablet 6 mg PO DAILY PRN 11/01/21 11/30/21 Unknown History umeclidinium 62.5 mcg-vilanterol 1 puff INHALATION DAILY 11/01/21 11/30/21 Unknown History 25 mcg/actuation powdr for inhalation (Anoro Ellipta) clozapine 25 mg tablet 2 tab PO BID 11/30/21 11/30/21 11/30/21 History olanzapine 5 mg tablet 1 tab PO BEDTIME 11/30/21 11/30/21 11/30/21 History Exam Exam Date and Time: December 08, 2021 125 Height,Weight and Vital Signs: Height 5 ft 3 in Weight 52.617 kg Last Vital Signs Temp 98 F 12/08/21 08:00 Pulse 82 12/08/21 08:00 Resp 19 12/08/21 08:00 BP 137/64 12/08/21 08:00 Pulse Ox 95 12/08/21 08:00 Pertinent Lab Results Pertinent Lab Results: Laboratory Tests 11/30/21 11/30/21 11/30/21 19:27 19:27 19:27 WBC 8.1 RBC 2.44 L Hgb 7.5 L Hct 24.0 L MCV 98.4 H MCH 30.7 MCHC 31.3 RDW 16.1 H Plt Count 203 MPV 9.6 Immature Gran % (Auto) 0.5 H Neut % (Auto) 67.1 Lymph % (Auto) 13.4 L [place] % (Auto) 11.5 H Eos % (Auto) 7.1 H Baso % (Auto) 0.4 Lymph # (Auto) 1.1 L [place] # (Auto) 0.9 Eos # (Auto) 0.6 H Baso # (Auto) 0.0 Abs Immat Gran (auto) 0.04 H Absolute Neuts (auto) 5.5 Absolute Nucleated RBC 0.000 Nucleated RBC % (auto) 0.0 Sodium 148 H Potassium 3.6 D Chloride 108 Carbon Dioxide 21 L Anion Gap 23 H BUN 70 H D Creatinine 7.79 H* Estim Creat Clear Calc 5.2 Estimated GFR 5 Random Glucose 107 Fasting Glucose Lactic Acid Calcium 8.7 D Magnesium 1.8 Iron TIBC % Saturation Unsat Iron Binding Total Bilirubin 0.5 Direct Bilirubin AST 13 ALT 13 Alkaline Phosphatase 130 H Lactate Dehydrogenase Total Protein 5.9 L Albumin 3.2 L Stool Occult Blood Clozapine Norclozapine Ethyl Alcohol COVID-19 ([facility]) Negative COVID-19 [employer] [facility] See Note Blood Type Antibody Screen Crossmatch 11/30/21 12/01/21 12/01/21 19:27 05:25 05:25 WBC 8.9 RBC 2.43 L Hgb 7.5 L Hct 23.8 L MCV 97.9 MCH 30.9 MCHC 31.5 RDW 16.3 H Plt Count 223 MPV 9.8 Immature Gran % (Auto) 0.4 Neut % (Auto) 68.0 Lymph % (Auto) 12.6 L [place] % (Auto) 10.7 Eos % (Auto) 7.7 H Baso % (Auto) 0.6 Lymph # (Auto) 1.1 L [place] # (Auto) 1.0 Eos # (Auto) 0.7 H Baso # (Auto) 0.1 Abs Immat Gran (auto) 0.04 H Absolute Neuts (auto) 6.1 Absolute Nucleated RBC 0.000 Nucleated RBC % (auto) 0.0 Sodium 143 Potassium 5.0 D Chloride 107 Carbon Dioxide 17 L Anion Gap 24 H BUN 76 H Creatinine 7.82 H* Estim Creat Clear Calc 5.2 Estimated GFR 5 Random Glucose 85 Fasting Glucose Lactic Acid Calcium 9.1 Magnesium Iron TIBC % Saturation Unsat Iron Binding Total Bilirubin Direct Bilirubin AST ALT Alkaline Phosphatase Lactate Dehydrogenase Total Protein Albumin Stool Occult Blood Clozapine Norclozapine Ethyl Alcohol < 10 COVID-19 ([facility]) COVID-19 [employer] [facility] Blood Type Antibody Screen Crossmatch 12/01/21 12/02/21 12/02/21 10:43 04:36 04:36 WBC 6.8 RBC 2.34 L Hgb 7.2 L Hct 22.9 L MCV 97.9 MCH 30.8 MCHC 31.4 RDW 16.3 H Plt Count 225 MPV 10.2 Immature Gran % (Auto) Neut % (Auto) Lymph % (Auto) [place] % (Auto) Eos % (Auto) Baso % (Auto) Lymph # (Auto) [place] # (Auto) Eos # (Auto) Baso # (Auto) Abs Immat Gran (auto) Absolute Neuts (auto) Absolute Nucleated RBC 0.000 Nucleated RBC % (auto) 0.0 Sodium 138 Potassium 4.5 Chloride 106 Carbon Dioxide 21 L Anion Gap 16 BUN 46 H Creatinine 5.51 H* Estim Creat Clear Calc 7.4 Estimated GFR 8 Random Glucose Fasting Glucose 83 Lactic Acid Calcium 9.1 Magnesium Iron TIBC % Saturation Unsat Iron Binding Total Bilirubin Direct Bilirubin AST ALT Alkaline Phosphatase Lactate Dehydrogenase Total Protein Albumin Stool Occult Blood Clozapine 103 Norclozapine 103 Ethyl Alcohol COVID-19 ([facility]) COVID-19 [employer] [facility] Blood Type Antibody Screen Crossmatch 12/04/21 12/04/21 12/04/21 13:21 13:21 14:58 WBC 10.3 RBC 1.97 L Hgb 6.1 L* Hct 19.5 L* MCV 99.0 H MCH 31.0 MCHC 31.3 RDW 16.6 H Plt Count 207 MPV 10.1 Immature Gran % (Auto) Neut % (Auto) Lymph % (Auto) [place] % (Auto) Eos % (Auto) Baso % (Auto) Lymph # (Auto) [place] # (Auto) Eos # (Auto) Baso # (Auto) Abs Immat Gran (auto) Absolute Neuts (auto) Absolute Nucleated RBC 0.000 Nucleated RBC % (auto) 0.0 Sodium 132 L Potassium 4.1 Chloride 103 Carbon Dioxide 14 L Anion Gap 19 BUN 27 H Creatinine 2.55 H Estim Creat Clear Calc 16.0 Estimated GFR 18 Random Glucose 127 H Fasting Glucose Lactic Acid Calcium 9.8 D Magnesium 1.8 Iron TIBC % Saturation Unsat Iron Binding Total Bilirubin Direct Bilirubin AST ALT Alkaline Phosphatase Lactate Dehydrogenase Total Protein Albumin Stool Occult Blood Clozapine Norclozapine Ethyl Alcohol COVID-19 ([facility]) COVID-19 [employer] [facility] Blood Type O Positive Antibody Screen NEGATIVE Crossmatch See Detail 12/05/21 12/06/21 12/06/21 21:48 06:02 06:02 WBC 6.4 RBC 2.02 L Hgb 6.4 L* Hct 20.6 L* MCV 102.0 H MCH 31.7 MCHC 31.1 RDW 15.8 Plt Count 188 MPV 10.2 Immature Gran % (Auto) Neut % (Auto) Lymph % (Auto) [place] % (Auto) Eos % (Auto) Baso % (Auto) Lymph # (Auto) [place] # (Auto) Eos # (Auto) Baso # (Auto) Abs Immat Gran (auto) Absolute Neuts (auto) 4.7 Absolute Nucleated RBC 0.000 Nucleated RBC % (auto) 0.0 Sodium 135 Potassium 4.7 Chloride 103 Carbon Dioxide 20 L Anion Gap 17 BUN 50 H D Creatinine 5.34 H* Estim Creat Clear Calc 7.6 Estimated GFR 8 Random Glucose 88 Fasting Glucose Lactic Acid 1.4 Calcium 8.8 D Magnesium Iron 89 TIBC 192 L % Saturation 46 Unsat Iron Binding 103 Total Bilirubin 0.4 Direct Bilirubin 0.2 AST 9 ALT 6 Alkaline Phosphatase 96 D Lactate Dehydrogenase Total Protein 5.2 L Albumin 2.8 L Stool Occult Blood Clozapine Norclozapine Ethyl Alcohol COVID-19 ([facility]) COVID-19 [facility] Com Blood Type Antibody Screen Crossmatch 12/06/21 12/06/21 12/07/21 17:54 21:09 05:46 WBC 7.1 RBC 2.06 L Hgb 8.2 L D 6.5 L* D Hct 23.6 L 19.7 L* MCV 95.6 D MCH 31.6 MCHC 33.0 RDW 15.5 Plt Count 176 MPV 10.5 Immature Gran % (Auto) Neut % (Auto) Lymph % (Auto) [place] % (Auto) Eos % (Auto) Baso % (Auto) Lymph # (Auto) [place] # (Auto) Eos # (Auto) Baso # (Auto) Abs Immat Gran (auto) Absolute Neuts (auto) Absolute Nucleated RBC 0.040 H Nucleated RBC % (auto) 0.6 H Sodium Potassium Chloride Carbon Dioxide Anion Gap BUN Creatinine Estim Creat Clear Calc Estimated GFR Random Glucose Fasting Glucose Lactic Acid Calcium Magnesium Iron TIBC % Saturation Unsat Iron Binding Total Bilirubin Direct Bilirubin AST ALT Alkaline Phosphatase Lactate Dehydrogenase Total Protein Albumin Stool Occult Blood POSITIVE Clozapine Norclozapine Ethyl Alcohol COVID-19 ([facility]) COVID-19 [employer] [facility] Blood Type Antibody Screen Crossmatch 12/07/21 12/08/21 12/08/21 21:33 06:13 06:13 WBC 2.3 L RBC 2.17 L Hgb 8.5 L D 7.0 L* Hct 25.0 L D 20.4 L* MCV 94.0 MCH 32.3 MCHC 34.3 RDW 15.7 Plt Count 144 L MPV 10.1 Immature Gran % (Auto) Neut % (Auto) Lymph % (Auto) [place] % (Auto) Eos % (Auto) Baso % (Auto) Lymph # (Auto) [place] # (Auto) Eos # (Auto) Baso # (Auto) Abs Immat Gran (auto) Absolute Neuts (auto) Absolute Nucleated RBC 0.000 Nucleated RBC % (auto) 0.0 Sodium 139 Potassium 3.8 Chloride 105 Carbon Dioxide 26 Anion Gap 12 BUN 63 H Creatinine 2.90 H Estim Creat Clear Calc 14.0 Estimated GFR 16 Random Glucose 90 Fasting Glucose Lactic Acid Calcium 8.5 Magnesium Iron TIBC % Saturation Unsat Iron Binding Total Bilirubin 0.4 Direct Bilirubin AST ALT Alkaline Phosphatase Lactate Dehydrogenase 113 L Total Protein Albumin Stool Occult Blood Clozapine Norclozapine Ethyl Alcohol COVID-19 ([facility]) [facility] Blood Type Antibody Screen Crossmatch 12/08/21 08:36 WBC RBC Hgb Hct MCV MCH MCHC RDW Plt Count MPV Immature Gran % (Auto) Neut % (Auto) Lymph % (Auto) [place] % (Auto) Eos % (Auto) Baso % (Auto) Lymph # (Auto) [place] # (Auto) Eos # (Auto) Baso # (Auto) Abs Immat Gran (auto) Absolute Neuts (auto) Absolute Nucleated RBC Nucleated RBC % (auto) Sodium Potassium Chloride Carbon Dioxide Anion Gap BUN Creatinine Estim Creat Clear Calc Estimated GFR Random Glucose Fasting Glucose Lactic Acid Calcium Magnesium Iron TIBC % Saturation Unsat Iron Binding Total Bilirubin Direct Bilirubin AST ALT Alkaline Phosphatase Lactate Dehydrogenase Total Protein Albumin Stool Occult Blood Clozapine Norclozapine Ethyl Alcohol COVID-19 ([facility]) [facility] Blood Type O Positive Antibody Screen NEGATIVE Crossmatch See Detail Airway Mallampati Class: II TM Dist: >3cm Neck ROM: Full Denture: Upper and Lower Assessment and Plan Assessment Anesthesia Assessment: Anesthesia Plan Discussed and Chart Reviewed Final Anesthetic Review Family History of Problems with Anesthesia: No History of Problems with Anesthesia: No NPO: Yes ASA Class: IV and Emergency Final Preanesthetic Review: Meds/Allgs Chart Reviewed, Consent Obtained/Reviewed, Anes Risks/Benef Reviewed and DNR Form (If Appl.) Patient Risk: High Procedure Risk: Low Anesthetic Plan Anesthetic Plan: GA Disposition: Standard PACU
--- NOTE | 2021-12-08 13:18 | PM.OP ---
Brief Operative Note Date of Service: 12/08/21 Pre-op diagnosis: melena and anemia Post-op diagnosis: same Procedure: see op note Surgeon: Darrell Lira MD Anesthesia: GETA Was an Agricultural Science Professor used for this Procedure?: No Estimated blood loss (mL): 0 Condition: stable Disposition: PACU
--- NOTE | 2021-12-08 13:18 | W.PM.OPN ---
Operative Note Operative Note Date of Service: 12/08/21 Narrative: Procedure Description: EGD and push enteroscopy Indication: melena, anemia Anesthesia: General anesthesia FLEXIBLE TRANSORAL UPPER GASTROINTESTINAL ENDOSCOPY and Push ENTEROSCOPY UPPER ENDOSCOPY Consent: Indications for the procedure and potential complications of bleeding, perforation, reaction to medications and missed diagnosis were discussed with the patient and informed consent was obtained. Instrument: Olympus GIF H 190 J mid size upper endoscope and pediatric colonoscope Monitoring: Vital signs and clinical assessment, continuous EKG monitoring, Pulse oximetry, Carbon Dioxide monitoring and blood pressure monitoring were done throughout the procedure. Procedure: The patient was placed in the left lateral decubitis position and pre-procedure medications were administered and a bite block was placed. The endoscope was inserted into the mouth and advanced under direct vision to the Proximal jejunum. well past the ligament of treitz. A careful inspection was made as the upper endoscope was withdrawn including a retroflexed examination of the proximal stomach; Findings and interventions are described below. Findings: Larynx:normal Esophagus: GE junction at 40 cm, diaphragm hiatus at 40 cm, soem retained food noted with slough, this was pushed down. As it was pushed down there was underlying esophagitis noted for about 4-5 cm with severe erythema but no ulcerations or erosions. Stomach: Patchy gastric erythema with fundic gland type polyps noted. Grade 2 flap valve on retroflexed examination of the cardia. Duodenum: nodular mucosa with inflammed duodenal bulb with edema and swelling. no active bleeding noted. in the second part there was a small area, looked like an AVM that was oozing and this was treated with APC. A distal attachment was placed to push apart the folds but after careful inspection no bleeding points or ulcers were seen. 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
--- NOTE | 2021-12-08 13:19 | HO.PM.IMPN ---
Subjective Subjective Date of Service: 12/08/21 Interval History: the patient was seen and evaluated this morning laying in her bed,looks weak and tired hemoglobin dropped again to 7 after 2 units transfusion with reported melena No reported other overnight events. Systemic review: No fever, chills but reported generalized weakness No chest pain, palpitation No shortness of breath or coughing No abdominal pain, nausea or vomiting No urinary symptoms Review of Systems unable to obtain good systemic review as the patient is agitated but generally denies any chest pain or shortness of breath Physical Exam Vital Signs: Vital Signs: Last Vital Signs Temp 98 F 12/08/21 08:00 Pulse 82 12/08/21 08:00 Resp 19 12/08/21 08:00 BP 137/64 12/08/21 08:00 Pulse Ox 95 12/08/21 08:00 BMI result Body Mass Index 20.5 Const: Other: Constitutional : Alert and interactive, not in distress Neck : Normal inspection, Supple Cardiovascular : RRR, S1 S2, no lower extremity edema Respiratory :? Fair bilateral air entry,? no crackles, wheezes or rhonchi Gastrointestinal:? soft, lax, Normal bowel sounds, Non tender Skin : Warm, Dry, PermCath in place Neurological : Alert &? oriented about self and place, No focal deficit Psychiatric, mildly distressed but less agitated Objective Data Active Medications Acetaminophen (Acetaminophen 325 Mg Tablet) 650 mg PO BID PRN PRN Reason: Pain (Scale Score 1-3) Last Admin: 12/08/21 08:13 Dose: 650 mg Documented by: ENRIQUE Albuterol Sulfate (Albuterol Sulfate 90 Mcg 8 Gm Inhaler) 2 puff INHALE RQ4H PRN PRN Reason: Wheezing Benzonatate (Benzonatate 100 Mg Capsule) 100 mg PO TID [facility] Last Admin: 12/08/21 09:41 Dose: 100 mg Documented by: ENRIQUE Clozapine (Clozapine 25 Mg Tablet) 50 mg PO BID@1000,1800 [facility] Last Admin: 12/08/21 09:41 Dose: 50 mg Documented by: ENRIQUE Clozapine (Clozapine 100 Mg Tablet) 200 mg PO BEDTIME [facility] Last Admin: 12/07/21 20:23 Dose: 200 mg Documented by: JUSTINA Diphenhydramine HCl (Diphenhydramine Hcl 25 Mg Tablet) 25 mg PO Q6H PRN PRN Reason: prurutis Last Admin: 12/08/21 08:13 Dose: 25 mg Documented by: ENRIQUE Dronedarone (Dronedarone Hcl 400 Mg Tablet) 400 mg PO BID [facility] Last Admin: 12/08/21 09:41 Dose: 400 mg Documented by: ENRIQUE Epoetin Tim (Epoetin Tim 10,000 Unit/Ml Vial) 10,000 unit IVPUSH TUTA@3965 [facility] Last Admin: 12/06/21 15:03 Dose: Not Given Documented by: MAULIK Non-Admin Reason: given in dialysis Hydrocortisone (Hydrocortisone 1 % Cream 28.35 Gm Tube) 1 appl TOPICAL BID PRN PRN Reason: skin irritation Hydroxyzine HCl (Hydroxyzine Hcl 50 Mg Tablet) 50 mg PO BEDTIME PRN PRN Reason: for insomnia Last Admin: 12/07/21 23:53 Dose: 50 mg Documented by: MICHELLE Lamotrigine (Lamotrigine 25 Mg Tablet) 150 mg PO BEDTIME [facility] Last Admin: 12/07/21 20:23 Dose: 150 mg Documented by: JUSTINA Levothyroxine Sodium (Levothyroxine Sodium 150 Mcg Tablet) 150 mcg PO DAILY [facility] Last Admin: 12/08/21 09:41 Dose: 150 mcg Documented by: ENRIQUE Lorazepam (Lorazepam 2 Mg/Ml Vial) 1 mg IVPUSH Q4H PRN PRN Reason: seizure Melatonin (Melatonin 3 Mg Tablet) 6 mg PO BEDTIME PRN PRN Reason: Insomnia Last Admin: 12/07/21 23:53 Dose: 6 mg Documented by: MICHELLE Midodrine (Midodrine Hcl 5 Mg Tablet) 5 mg PO BID [facility] Last Admin: 12/08/21 09:41 Dose: 5 mg Documented by: ENRIQUE Olanzapine (Olanzapine 5 Mg Tablet) 5 mg PO BID [facility] Last Admin: 12/08/21 09:41 Dose: 5 mg Documented by: ENRIQUE Olanzapine (Olanzapine 5 Mg Tablet) 5 mg PO BID PRN PRN Reason: tawny, agitation Last Admin: 12/06/21 00:12 Dose: 5 mg Documented by: BRANDON Ondansetron HCl (Ondansetron Hcl 4 Mg/2 Ml Vial) 4 mg IVPUSH Q8H PRN PRN Reason: Nausea and Vomiting Last Admin: 12/07/21 05:10 Dose: 4 mg Documented by: BRANDON Pantoprazole Sodium (Pantoprazole Sodium 40 Mg/10 Ml Vial) 40 mg IVPUSH BID@0630,1630 [facility] Last Admin: 12/08/21 05:33 Dose: 40 mg Documented by: HELDER Pharmacy Consult (Consult Rx Perform Med Rec) 1 each MISCELLANE ONCE PRN PRN Reason: Consult order Senna (Sennosides 8.6 Mg Tablet) 17.2 mg PO BEDTIME PRN PRN Reason: Constipation Sevelamer Carbonate (Sevelamer Carbonate Tablet 800 Mg Tablet) 1,600 mg PO TIDWM [facility] Last Admin: 12/08/21 09:40 Dose: 1,600 mg Documented by: ENRIQUE Sodium Chloride (0.9 % Sodium Chloride Flush 3 Ml Syringe) 3 ml IVFLUSH QSHIFT [facility] Last Admin: 12/08/21 09:43 Dose: 3 ml Documented by: ENRIQUE Tamoxifen Citrate (Tamoxifen Citrate 10 Mg Tablet) 20 mg PO DAILY@1400 [facility] Last Admin: 12/07/21 13:58 Dose: 20 mg Documented by: GRETA Valproic Acid (Valproic Acid (As Sodium Salt) 250 Mg/5 Ml Solution) 250 mg PO TID [facility] Labs CBC & Chem 7: 12/08/21 06:13 12/08/21 06:13 Labs: Laboratory Results - last 24 hr 12/04/21 12/08/21 12/08/21 14:58 06:13 06:13 MCV 94.0 MCH 32.3 MCHC 34.3 RDW 15.7 Plt Count 144 L MPV 10.1 Absolute Nucleated RBC 0.000 Nucleated RBC % (auto) 0.0 Anion Gap 12 Estim Creat Clear Calc 14.0 Estimated GFR 16 Random Glucose 90 Calcium 8.5 Total Bilirubin 0.4 Lactate Dehydrogenase 113 L Blood Type O Positive Antibody Screen NEGATIVE Crossmatch See Detail 12/08/21 08:36 MCV MCH MCHC RDW Plt Count MPV Absolute Nucleated RBC Nucleated RBC % (auto) Anion Gap Estim Creat Clear Calc Estimated GFR Random Glucose Calcium Total Bilirubin Lactate Dehydrogenase Blood Type O Positive Antibody Screen NEGATIVE Crossmatch See Detail Assessment and Plan (1) Acute blood loss anemia: Status: Acute (2) GI bleed: Status: Acute (3) Generalized seizure: Status: Acute (4) ESRD needing dialysis: Status: Acute Plan 76F presented with agitation, missed HD Acute on chronic blood-loss anemia secondary to GI bleeding had melena received total of 7 units of blood, last hemoglobin 7 this morning to give 2 units of blood and 1 unit FFP P hold anticoagulation GI evaluation , to do endoscopy today continue pantoprazole IV b.i.d. Monitor CBC with target 7-8 seizure disorder no recurrence of seizures since admission discussed with neurology, changed to Dilantin change Dilantin to p.o. ESRD HD per nephrology recommendations bipolar plan for geripsych placement pending bed availability hypernatremia resolved hyoptension due to general deconditioning, decreased p.o. intake Continue midodrine and IV fluid as needed hypothyroid synthroid pafib Hold Eliquis continue Multaq history of breast ca tamoxifen full code reason for continued hospitalization: acute GI bleed which need blood transfusion and GI evaluation with Planfor endoscopy. awaiting safe discharge plan Given high chance of decompensation and readmission. Quality Stroke Does the patient have a stroke diagnosis?: No VTE Prior VTE?: No VTE Risk Level:: Medical - moderate - high VTE Device Contraindication: Treatment Not Indicated VTE Drug Contraindication: N/A - Med Ordered
[2021-12-08] MEDS: Tamoxifen Citrate 10 MG TABLET 20 MG PO (15:34)
--- NOTE | 2021-12-08 18:01 | PM.PNNEP ---
Subjective Subjective Date of Service: 12/08/21 Principal diagnosis: ESRD on HD Interval history: Chart Reviewed. Events noted. Physical Exam Vital Signs: Vital Signs: Last Vital Signs Temp 97.6 F 12/08/21 17:15 Pulse 82 12/08/21 17:15 Resp 16 12/08/21 17:15 BP 109/59 L 12/08/21 17:15 Pulse Ox 97 12/08/21 15:45 BMI result Body Mass Index 20.5 Const: General: no acute distress Nutritional Appearance: thin HEENT: Head: Yes normocephalic and Yes atraumatic Neck: Neck: Yes no JVD Resp: Effort & Inspection: normal respiratory effort Cardio: Jugular venous distension: no JVD Rate: regular rate Rhythm: regular rhythm Heart sounds: S1 normal heart sound present and S2 normal heart sound present GI: Auscultation: normal bowel sounds Neuro: General: moves all extremities Extrem: General: Yes no clubbing, cyanosis or edema Objective Data Labs CBC & Chem 7: 12/08/21 06:13 12/08/21 06:13 Labs: Laboratory Results - last 24 hr 12/04/21 12/07/21 12/08/21 14:58 21:33 06:13 WBC 2.3 L RBC 2.17 L Hgb 8.5 L D 7.0 L* Hct 25.0 L D 20.4 L* MCV 94.0 MCH 32.3 MCHC 34.3 RDW 15.7 Plt Count 144 L MPV 10.1 Absolute Nucleated RBC 0.000 Nucleated RBC % (auto) 0.0 Sodium Potassium Chloride Carbon Dioxide Anion Gap BUN Creatinine Estim Creat Clear Calc Estimated GFR Random Glucose Calcium Total Bilirubin Lactate Dehydrogenase Blood Type Antibody Screen Crossmatch See Detail 12/08/21 12/08/21 06:13 08:36 WBC RBC Hgb Hct MCV MCH MCHC RDW Plt Count MPV Absolute Nucleated RBC Nucleated RBC % (auto) Sodium 139 Potassium 3.8 Chloride 105 Carbon Dioxide 26 Anion Gap 12 BUN 63 H Creatinine 2.90 H Estim Creat Clear Calc 14.0 Estimated GFR 16 Random Glucose 90 Calcium 8.5 Total Bilirubin 0.4 Lactate Dehydrogenase 113 L Blood Type O Positive Antibody Screen NEGATIVE Crossmatch See Detail Procedures Date of Service Date of Service: 12/08/21 Assessment & Plan Assessment and plan (1) ESRD needing dialysis: Status: Acute Plan 76F presented with agitation, missed HD prior to presentation. Now on TTS schedule. 1. ESRD: cont HD T,,S 2. Anemia - prbc transfusion to maintian hgb > 7.0 Continue STEVAN 10,000 units tiw with dialysis. GI following. eliquis held by primary team. EGD Friday 3. Hypotension - r/o infection. maintain hemodynamics during HD. Avoid aggressive UF. May need to be kept net even. midodrine for bp support during HD. REC: cont HD 3x/w? Time Spent With Patient Time: Total time spent is greater than 50% in coordination of care (as documented) at patient's floor/unit and/or counseling patient: Progress Note: Quality Stroke Does the patient have a stroke diagnosis?: No
[2021-12-08] MEDS: cloZAPine 100 MG TABLET 200 MG PO (19:48)
[2021-12-08] MEDS: lamoTRIgine 25 MG TABLET 150 MG PO (19:49)
[2021-12-09] VITALS (7 sets, daily range): BP systolic 97–144; BP diastolic 52–78; PULSE 66–74; RESP 16–20; TEMP 36.6–37.2; O2SAT 94–98
[2021-12-09] MEDS: Pantoprazole Sodium 40 MG/10 ML VIAL IVPUSH ×2 (05:19→15:38)
[2021-12-09] MEDS: Acetaminophen 325 MG TABLET 650 MG PO ×2 (06:19→20:35)
[2021-12-09 06:28] LABS: Hematocrit 26.6 % (37.0-47.0); Mean Corpuscular HGB Conc 33.8 g/dl (31.0-35.0); Mean Corpuscular Hemoglobin 31.3 pg (27.0-33.0); Mean Corpuscular Volume 92.4 fL (80.0-98.0); Mean Platelet Volume 10.4 fL (9.4-12.3); Platelet Count 153 X10*3/uL (160-400); Red Blood Count 2.88 X10*6/uL (4.20-5.50); Red Cell Distribution Width 15.6 % (11.0-16.0); White Blood Count 8.1 X10*3/uL (4.8-10.8)
[2021-12-09 06:58] LABS: Anion Gap 14 (12-20); Blood Urea Nitrogen 44 mg/dL (9-16); Calcium 8.5 mg/dL (8.4-10.2); Carbon Dioxide 22 mmol/L (22-29); Chloride 104 mmol/L (96-108); Creatinine Clr Calc Pharmacy 12.9; Estimated Glomerular Filt Rate 14; Glucose Random 74 mg/dL (60-115); Potassium 5.4 mmol/L (3.3-5.1); Sodium 135 mmol/L (135-145)
[2021-12-09] MEDS: cloZAPine 25 MG TABLET 50 MG PO ×2 (08:40→17:22)
[2021-12-09] MEDS: Dronedarone HCl 400 MG TABLET PO ×2 (08:41→20:38)
[2021-12-09] MEDS: Benzonatate 100 MG CAPSULE PO ×3 (08:41→20:37)
[2021-12-09] MEDS: Levothyroxine Sodium 150 MCG TABLET PO (08:41)
[2021-12-09] MEDS: Sevelamer Carbonate Tablet 800 MG TABLET 1600 MG PO ×3 (08:41→17:23)
[2021-12-09] MEDS: Sodium Zirconium Cyclosilicate 10 GM POWD.PACK PO (08:41)
[2021-12-09] MEDS: OLANZapine 5 MG TABLET PO ×2 (08:41→20:38)
[2021-12-09] MEDS: Midodrine HCl 5 MG TABLET PO ×2 (08:41→20:38)
[2021-12-09] MEDS: 0.9 % Sodium Chloride Flush 3 ML SYRINGE IVFLUSH ×2 (08:45→15:38)
--- NOTE | 2021-12-09 12:12 | P.PNIM_ITS ---
Subjective Subjective Date of Service: 12/09/21 Interval History: the patient was seen and evaluated this morning laying in her bed,looks weak and tired hemoglobin improved to 9 after 2 units transfusion reported melena this morning No reported other overnight events. Systemic review: No fever, chills but reported generalized weakness No chest pain, palpitation No shortness of breath or coughing No abdominal pain, nausea or vomiting No urinary symptoms Review of Systems unable to obtain good systemic review as the patient is agitated but generally denies any chest pain or shortness of breath Physical Exam Vital Signs: Vital Signs: Last Vital Signs Temp 98.1 F 12/09/21 10:58 Pulse 74 12/09/21 06:58 Resp 18 12/09/21 10:58 BP 144/78 H 12/09/21 10:58 Pulse Ox 94 12/09/21 10:58 BMI result Body Mass Index 20.5 Const: Other: Constitutional : Alert and interactive, not in distress Neck : Normal inspection, Supple Cardiovascular : RRR, S1 S2, no lower extremity edema Respiratory :? Fair bilateral air entry,? no crackles, wheezes or rhonchi Gastrointestinal:? soft, lax, Normal bowel sounds, Non tender Skin : Warm, Dry, PermCath in place Neurological : Alert &? oriented about self and place, No focal deficit Psychiatric, anxious about going home,less agitated Objective Data Active Medications Acetaminophen (Acetaminophen 325 Mg Tablet) 650 mg PO BID PRN PRN Reason: Pain (Scale Score 1-3) Last Admin: 12/09/21 06:19 Dose: 650 mg Documented by: KEENAN Albuterol Sulfate (Albuterol Sulfate 90 Mcg 8 Gm Inhaler) 2 puff INHALE RQ4H PRN PRN Reason: Wheezing Benzonatate (Benzonatate 100 Mg Capsule) 100 mg PO TID [facility] Last Admin: 12/09/21 08:41 Dose: 100 mg Documented by: GRETA Clozapine (Clozapine 25 Mg Tablet) 50 mg PO BID@1000,1800 [facility] Last Admin: 12/09/21 08:40 Dose: 50 mg Documented by: GRETA Clozapine (Clozapine 100 Mg Tablet) 200 mg PO BEDTIME [facility] Last Admin: 12/08/21 19:48 Dose: 200 mg Documented by: JUSTINA Diphenhydramine HCl (Diphenhydramine Hcl 25 Mg Tablet) 25 mg PO Q6H PRN PRN Reason: prurutis Last Admin: 12/08/21 08:13 Dose: 25 mg Documented by: ENRIQUE Dronedarone (Dronedarone Hcl 400 Mg Tablet) 400 mg PO BID [facility] Last Admin: 12/09/21 08:41 Dose: 400 mg Documented by: GRETA Epoetin Tim (Epoetin Tim 10,000 Unit/Ml Vial) 10,000 unit IVPUSH [facility] 2001@7325 [facility] Last Admin: 12/08/21 15:53 Dose: Not Given Documented by: JUSTINA Non-Admin Reason: DIALYSIS ORDER Hydrocortisone (Hydrocortisone 1 % Cream 28.35 Gm Tube) 1 appl TOPICAL BID PRN PRN Reason: skin irritation Hydroxyzine HCl (Hydroxyzine Hcl 50 Mg Tablet) 50 mg PO BEDTIME PRN PRN Reason: for insomnia Last Admin: 12/07/21 23:53 Dose: 50 mg Documented by: MICHELLE Lamotrigine (Lamotrigine 25 Mg Tablet) 150 mg PO BEDTIME [facility] Last Admin: 12/08/21 19:49 Dose: 150 mg Documented by: JUSTINA Levothyroxine Sodium (Levothyroxine Sodium 150 Mcg Tablet) 150 mcg PO DAILY [facility] Last Admin: 12/09/21 08:41 Dose: 150 mcg Documented by: GRETA Lorazepam (Lorazepam 2 Mg/Ml Vial) 1 mg IVPUSH Q4H PRN PRN Reason: seizure Melatonin (Melatonin 3 Mg Tablet) 6 mg PO BEDTIME PRN PRN Reason: Insomnia Last Admin: 12/07/21 23:53 Dose: 6 mg Documented by: MICHELLE Midodrine (Midodrine Hcl 5 Mg Tablet) 5 mg PO BID [facility] Last Admin: 12/09/21 08:41 Dose: 5 mg Documented by: GRETA Olanzapine (Olanzapine 5 Mg Tablet) 5 mg PO BID [facility] Last Admin: 12/09/21 08:41 Dose: 5 mg Documented by: GRETA Olanzapine (Olanzapine 5 Mg Tablet) 5 mg PO BID PRN PRN Reason: tawny, agitation Last Admin: 12/06/21 00:12 Dose: 5 mg Documented by: BRANDON Ondansetron HCl (Ondansetron Hcl 4 Mg/2 Ml Vial) 4 mg IVPUSH Q8H PRN PRN Reason: Nausea and Vomiting Last Admin: 12/07/21 05:10 Dose: 4 mg Documented by: BRANDON Pantoprazole Sodium (Pantoprazole Sodium 40 Mg/10 Ml Vial) 40 mg IVPUSH BID@0630,1630 [facility] Last Admin: 12/09/21 05:19 Dose: 40 mg Documented by: KEENAN Pharmacy Consult (Consult Rx Perform Med Rec) 1 each MISCELLANE ONCE PRN PRN Reason: Consult order Senna (Sennosides 8.6 Mg Tablet) 17.2 mg PO BEDTIME PRN PRN Reason: Constipation Sevelamer Carbonate (Sevelamer Carbonate Tablet 800 Mg Tablet) 1,600 mg PO TIDWM [facility] Last Admin: 12/09/21 08:41 Dose: 1,600 mg Documented by: GRETA Sodium Chloride (0.9 % Sodium Chloride Flush 3 Ml Syringe) 3 ml IVFLUSH QSHIFT [facility] Last Admin: 12/09/21 08:45 Dose: 3 ml Documented by: GRETA Tamoxifen Citrate (Tamoxifen Citrate 10 Mg Tablet) 20 mg PO DAILY@1400 [facility] Last Admin: 12/08/21 15:34 Dose: 20 mg Documented by: GRETA Valproic Acid (Valproic Acid (As Sodium Salt) 250 Mg/5 Ml Solution) 250 mg PO TID [facility] Last Admin: 12/09/21 08:40 Dose: 250 mg Documented by: GRETA Labs CBC & Chem 7: 12/09/21 06:02 12/09/21 06:02 Labs: Laboratory Results - last 24 hr 12/04/21 12/08/21 12/09/21 14:58 08:36 06:02 MCV 92.4 MCH 31.3 MCHC 33.8 RDW 15.6 Plt Count 153 L MPV 10.4 Absolute Nucleated RBC 0.000 Nucleated RBC % (auto) 0.0 Anion Gap Estim Creat Clear Calc Estimated GFR Random Glucose Calcium Blood Type O Positive Antibody Screen NEGATIVE Crossmatch See Detail See Detail 12/09/21 06:02 MCV MCH MCHC RDW Plt Count MPV Absolute Nucleated RBC Nucleated RBC % (auto) Anion Gap 14 Estim Creat Clear Calc 12.9 Estimated GFR 14 Random Glucose 74 Calcium 8.5 Blood Type Antibody Screen Crossmatch Assessment and Plan (1) Acute blood loss anemia: Status: Acute (2) Generalized seizure: Status: Acute (3) Agitation: Status: Acute (4) GI bleed: Status: Acute Plan 76F presented with agitation, missed HD Acute on chronic blood-loss anemia secondary to GI bleeding still having episodes of dark stool, melena received total of 7 units of blood and 1 unit FFP hemoglobin improved to 9 this morning hold anticoagulation for 2 more days GI evaluation , endoscopy showed no clear ulcers blood areas of gastritis, esophagitis might need to do lower endoscopy AF continue to drop her hemoglobin continue pantoprazole IV b.i.d. Monitor CBC with target 7-8 seizure disorder no recurrence of seizures since admission discussed with neurology, changed to Dilantin change Dilantin to p.o. ESRD HD per nephrology recommendations bipolar plan for geripsych placement pending bed availability hypernatremia resolved hyoptension due to general deconditioning, decreased p.o. intake Continue midodrine and IV fluid as needed hypothyroid synthroid pafib Hold Eliquis continue Multaq history of breast ca tamoxifen full code reason for continued hospitalization: acute GI bleed which need blood transfusion and GI evaluation as patient still having episodes of melena and might need further evaluation with colonoscopy. awaiting safe discharge plan versus psychiatry admission Given high chance of decompensation and readmission. Quality Stroke Does the patient have a stroke diagnosis?: No VTE Prior VTE?: No VTE Risk Level:: Medical - moderate - high VTE Device Contraindication: Treatment Not Indicated VTE Drug Contraindication: N/A - Med Ordered
[2021-12-09] MEDS: Tamoxifen Citrate 10 MG TABLET 20 MG PO (14:10)
[2021-12-09 15:15] LABS: Hematocrit 30.2 % (37.0-47.0); Hemoglobin 10.2 g/dl (12.0-16.0); Mean Corpuscular HGB Conc 33.8 g/dl (31.0-35.0); Mean Corpuscular Hemoglobin 31.3 pg (27.0-33.0); Mean Corpuscular Volume 92.6 fL (80.0-98.0); Mean Platelet Volume 10.4 fL (9.4-12.3); Platelet Count 165 X10*3/uL (160-400); Red Blood Count 3.26 X10*6/uL (4.20-5.50); White Blood Count 8.3 X10*3/uL (4.8-10.8)
--- NOTE | 2021-12-09 15:52 | PM.PNNEP ---
Subjective Subjective Date of Service: 12/09/21 Principal diagnosis: ESRD on HD Interval history: Chart Reviewed. Events noted. Hgb improved this am. Physical Exam Vital Signs: Vital Signs: Last Vital Signs Temp 99.0 F 12/09/21 15:47 Pulse 68 12/09/21 15:47 Resp 18 12/09/21 15:47 BP 99/61 12/09/21 15:47 Pulse Ox 98 12/09/21 15:47 BMI result Body Mass Index 20.5 Const: General: no acute distress, alert and awake Orientation/consciousness: patient oriented x3 HEENT: Head: Yes normocephalic and Yes atraumatic Neck: Neck: Yes no JVD Resp: Auscultation: clear to auscultation bilaterally Cardio: Jugular venous distension: no JVD Rate: regular rate Rhythm: regular rhythm Heart sounds: S1 normal heart sound present and S2 normal heart sound present GI: Auscultation: normal bowel sounds Neuro: General: patient oriented x3 Extrem: General: Yes no clubbing, cyanosis or edema Objective Data Labs CBC & Chem 7: 12/09/21 14:29 12/09/21 06:02 Labs: Laboratory Results - last 24 hr 12/04/21 12/08/21 12/09/21 14:58 08:36 06:02 WBC 8.1 RBC 2.88 L D Hgb 9.0 L D Hct 26.6 L D MCV 92.4 MCH 31.3 MCHC 33.8 RDW 15.6 Plt Count 153 L MPV 10.4 Absolute Nucleated RBC 0.000 Nucleated RBC % (auto) 0.0 Sodium Potassium Chloride Carbon Dioxide Anion Gap BUN Creatinine Estim Creat Clear Calc Estimated GFR Random Glucose Calcium Blood Type O Positive Antibody Screen NEGATIVE Crossmatch See Detail See Detail 12/09/21 12/09/21 06:02 14:29 WBC 8.3 RBC 3.26 L Hgb 10.2 L Hct 30.2 L MCV 92.6 MCH 31.3 MCHC 33.8 RDW 16.0 Plt Count 165 MPV 10.4 Absolute Nucleated RBC 0.000 Nucleated RBC % (auto) 0.0 Sodium 135 Potassium 5.4 H D Chloride 104 Carbon Dioxide 22 Anion Gap 14 BUN 44 H Creatinine 3.15 H Estim Creat Clear Calc 12.9 Estimated GFR 14 Random Glucose 74 Calcium 8.5 Blood Type Antibody Screen Crossmatch Procedures Date of Service Date of Service: 12/09/21 Assessment & Plan Assessment and plan (1) ESRD needing dialysis: Status: Acute (2) GI bleed: Status: Acute Plan 76F presented with agitation, missed HD prior to presentation. Now on TTS schedule. 1. ESRD: cont HD T,TH,S 2. Anemia - prbc transfusion to maintian hgb > 7.0 Continue STEVAN 10,000 units tiw with dialysis. 3. Hypotension - r/o infection. maintain hemodynamics during HD. Avoid aggressive UF. May need to be kept net even. midodrine for bp support during HD. REC: cont HD 3x/w? Time Spent With Patient Time: Total time spent is greater than 50% in coordination of care (as documented) at patient's floor/unit and/or counseling patient: Progress Note: Quality Stroke Does the patient have a stroke diagnosis?: No
[2021-12-09] MEDS: cloZAPine 100 MG TABLET 200 MG PO (20:37)
[2021-12-09] MEDS: lamoTRIgine 25 MG TABLET 150 MG PO (20:38)
[2021-12-10] MEDS: 0.9 % Sodium Chloride Flush 3 ML SYRINGE IVFLUSH ×2 (00:54→08:57)
[2021-12-10 01:00] VITALS: BP 114/53; PULSE 93; RESP 20
[2021-12-10 04:00] VITALS: BP 118/58; PULSE 90; RESP 17; TEMP 36.3; O2SAT 95
[2021-12-10 06:44] LABS: Hematocrit 29.4 % (37.0-47.0); Hemoglobin 9.8 g/dl (12.0-16.0); Mean Corpuscular HGB Conc 33.3 g/dl (31.0-35.0); Mean Corpuscular Hemoglobin 31.3 pg (27.0-33.0); Mean Corpuscular Volume 93.9 fL (80.0-98.0); Mean Platelet Volume 10.2 fL (9.4-12.3); NRBC Pct Auto 0.2 /100WBC (0.0-0.2); Platelet Count 196 X10*3/uL (160-400); Red Blood Count 3.13 X10*6/uL (4.20-5.50); Red Cell Distribution Width 16.5 % (11.0-16.0); White Blood Count 9.1 X10*3/uL (4.8-10.8)
[2021-12-10 07:34] VITALS: BP 133/61; PULSE 93; RESP 15; TEMP 36.5; O2SAT 90
[2021-12-10] MEDS: OLANZapine 5 MG TABLET PO (08:56)
[2021-12-10] MEDS: cloZAPine 25 MG TABLET 50 MG PO (08:56)
[2021-12-10] MEDS: Dronedarone HCl 400 MG TABLET PO (08:56)
[2021-12-10] MEDS: Levothyroxine Sodium 150 MCG TABLET PO (08:56)
[2021-12-10] MEDS: Midodrine HCl 5 MG TABLET PO (08:56)
[2021-12-10] MEDS: Benzonatate 100 MG CAPSULE PO ×2 (08:56→14:07)
[2021-12-10] MEDS: Sevelamer Carbonate Tablet 800 MG TABLET 1600 MG PO ×2 (08:56→13:02)
[2021-12-10] MEDS: Acetaminophen 325 MG TABLET 650 MG PO (10:48)
--- NOTE | 2021-12-10 11:14 | PM.PNNEP ---
Subjective Subjective Date of Service: 12/14/21 Principal diagnosis: ESRD on HD Interval history: Events noted s/p Brant yesterday for K of 5.4 Physical Exam Vital Signs: Vital Signs: Last Vital Signs Temp 97.7 F 12/10/21 07:34 Pulse 93 12/10/21 07:34 Resp 15 12/10/21 07:34 BP 133/61 12/10/21 07:34 Pulse Ox 90 L 12/10/21 07:34 BMI result Body Mass Index 20.5 Const: Other: Constitutional : Alert and interactive, not in distress Neck : Normal inspection, Supple Cardiovascular : RRR, S1 S2, no lower extremity edema Respiratory :? Fair bilateral air entry,? no crackles, wheezes or rhonchi Gastrointestinal:? soft, lax, Normal bowel sounds, Non tender Skin : Warm, Dry, PermCath in place Neurological : Alert &? oriented about self and place, No focal deficit Psychiatric, anxious about going home,less agitated Objective Data Labs CBC & Chem 7: 12/10/21 06:01 12/09/21 06:02 Labs: Laboratory Results - last 24 hr 12/09/21 12/10/21 14:29 06:01 WBC 8.3 9.1 RBC 3.26 L 3.13 L Hgb 10.2 L 9.8 L Hct 30.2 L 29.4 L MCV 92.6 93.9 MCH 31.3 31.3 MCHC 33.8 33.3 RDW 16.0 16.5 H Plt Count 165 196 MPV 10.4 10.2 Absolute Nucleated RBC 0.000 0.020 H Nucleated RBC % (auto) 0.0 0.2 Procedures Date of Service Date of Service: 12/10/21 Assessment & Plan Assessment and plan (1) ESRD needing dialysis: Status: Acute (2) GI bleed: Status: Acute Plan 76F presented with agitation, missed HD prior to presentation. Now on TTS schedule. 1. ESRD: cont HD T,,S 2. Anemia - prbc transfusion to maintian hgb > 7.0 Continue STEVAN 10,000 units tiw with dialysis. 3. Hypotension - r/o infection. maintain hemodynamics during HD. Avoid aggressive UF. May need to be kept net even. midodrine for bp support during HD. REC: cont HD 3x/w? Time Spent With Patient Time: Total time spent is greater than 50% in coordination of care (as documented) at patient's floor/unit and/or counseling patient: Progress Note: Quality Stroke Does the patient have a stroke diagnosis?: No
[2021-12-10 11:17] VITALS: BP 150/67; PULSE 97; RESP 15; TEMP 36.9; O2SAT 90
--- NOTE | 2021-12-10 12:04 | PM.DS ---
DS: Providers Provider Date of Service: 12/10/21 Date of admission: 11/30/21 22:21 Primary care physician: Gabriel Acosta MD Consults: 11/30/21 18:17 BHN [Consult to Crisis] Stat Reason for consultation: Erratic behavior 11/30/21 21:45 Consult to Nephrology Stat Consulting Provider: Vladimir Cagle Reason for consultation: esrd 11/30/21 22:19 Consult to Nephrology Routine Consulting Provider: Vladimir Cagle Reason for consultation: ESRD; missed HD Consult to Psychiatry Routine Consulting Provider: Psych Covering Reason for consultation: agitation 12/01/21 09:58 Consult to Care Team Routine Comment: Reason for consultation: medically cleared 12/04/21 12:29 Consult to Neurology Routine Consulting Provider: [facility] Reason for consultation: ?seizure activity 12/07/21 06:18 Consult to Gastroenterology Routine Consulting Provider: Darrell Lira Reason for consultation: GI bleed Has provider been notified: No 12/10/21 07:37 Consult to Care Team Routine Comment: Reason for consultation: medically cleared to discharge, for eval and placement DS: Diagnosis Discharge Diagnosis (1) ESRD needing dialysis: Status: Acute (2) GI bleed: Status: Acute DS: Summary Hospital Course Hospital Course: admission note HPI 76-year-old female with a past medical history of hypertension, hyperlipidemia, atrial fibrillation, ESRD on hemodialysis, hypothyroidism, anxiety, depression, bipolar with manic episodes, history of pulmonary embolism, history of SBO, seizures, COPD, history of ESBL E coli UTI; presented to the hospital with a chief complaint of agitation/tawny.? Reportedly patient has been agitated at home and was not able to be sent to the hemodialysis session today.? Suggested to go to the ER for further evaluation.? Also mentioned that patient has not completed her hemodialysis session on last Friday.? Denied patient complaining of fever chills cough chest pain palpitations lightheadedness dizziness or urinary complaints. Per ER team patient noted to be agitated; on labs noted to have elevated creatinine and BUN 60 to missed hemodialysis session.? Also noted to have elevated sodium of 148.? Discussed with Nephrology Dr. Cagle who suggested admission to the hospital for possible hemodialysis in the morning.? Hospital course The patient presented to the hospital for agitation that was evaluated by psychiatry team and controlled with changing her olanzapine dosage but at the day of planned discharge she developed of December 04 a generalized seizure attack. CT scan of the brain showed evidence of previous ischemic strokes as the patient was evaluated by Neurology who recommended starting antiseizure medication of Dilantin that was tolerated well by the patient with no recurrence of the seizure. Noticed to have a drop in her hemoglobin with an evidence of melena bowel motion evaluated by Gastroenterology as the patient Started on IV pantoprazole and received total of 7 units of blood and 1 unit of FFP with holding of her anticoagulation. endoscopy showed no clear ulcers blood areas of gastritis, esophagitis and recommended to hold on colonoscopy S the patient hemoglobin remained stable around 9. to be discharged on omeprazole b.i.d. Re-evaluated by the psychiatry team at the day of discharge who recommended no need for the patient to go back to the psych unit as her symptoms of agitation improved significantly with changing olanzapine to 5 mg twice daily. She will continue to follow up with her outpatient psychiatrist though. Had dialysis agent as planned during hospital stay. To continue with her TTS dialysis schedule. Olanzapine increased to 5 mg twice Daily Start omeprazole twice Daily Continue Dilantin 3 times a day Hold Eliquis for the next 2 days to do dialysis as scheduled To follow-up with psychiatry team as outpatient. Time Spent with Patient Time attestation: Total time spent providing and/or coordinating discharge services: Discharge coordination time: Greater than 30 minutes Quality: Safe Use of Opioids Does Pt have an Active Cancer Diagnosis on the Problem List?: No Quality: Stroke Does the patient have a stroke diagnosis?: No Physical Exam Vital Signs: Vital Signs: Last Vital Signs Temp 98.4 F 12/10/21 11:17 Pulse 97 12/10/21 11:17 Resp 15 12/10/21 11:17 BP 150/67 H 12/10/21 11:17 Pulse Ox 90 L 12/10/21 11:17 BMI result Body Mass Index 20.5 Const: Other: Constitutional : Alert and interactive, not in distress Neck : Normal inspection, Supple Cardiovascular : RRR, S1 S2, no lower extremity edema Respiratory :? Fair bilateral air entry,? no crackles, wheezes or rhonchi Gastrointestinal:? soft, lax, Normal bowel sounds, Non tender Skin : Warm, Dry, PermCath in place Neurological : Alert &? oriented about self and place, No focal deficit Psychiatric, asking about going home,less agitated DS: Data Data Completed and Pending Completed studies during hospitalization [Text1]: Procedures Destruction of Bladder, Via Natural or Artificial Opening Endoscopic (03/21/21) Dilation of Bilateral Ureters with Intraluminal Device, Via Natural or Artificial Opening Endoscopic (03/21/21) Extirpation of Matter from Right Ureter, Via Natural or Artificial Opening Endoscopic (03/21/21) Fluoroscopy of Kidneys, Ureters and Bladder (03/21/21) Insertion of Infusion Device into Right Cephalic Vein, Percutaneous Approach (11/08/21) Insertion of Infusion Device into Superior Vena Cava, Percutaneous Approach (11/08/21) Performance of Urinary Filtration, Intermittent, Less than 6 Hours Per Day (11/08/21) Transfusion of Nonautologous Red Blood Cells into Peripheral Vein, Percutaneous Approach (10/20/21) Ultrasonography of Superior Vena Cava, Guidance (11/08/21) Labs on day of discharge: Laboratory Results - last 24 hr 12/09/21 12/10/21 14:29 06:01 WBC 8.3 9.1 RBC 3.26 L 3.13 L Hgb 10.2 L 9.8 L Hct 30.2 L 29.4 L MCV 92.6 93.9 MCH 31.3 31.3 MCHC 33.8 33.3 RDW 16.0 16.5 H Plt Count 165 196 MPV 10.4 10.2 Absolute Nucleated RBC 0.000 0.020 H Nucleated RBC % (auto) 0.0 0.2 Discharge Plan Discharge Patient Disposition: Home Health Service Discharge Diagnosis: generalized seizure Acute on chronic anemia Referrals: Gabriel Acosta MD [Primary Care Provider] - 1 Week Discharge Medications: New olanzapine 5 mg Tablet 5 mg PO BID Qty: 60 0RF valproic acid (as sodium salt) 250 mg/5 mL (5 mL) Solution 250 mg PO TID 30 Days Qty: 450 0RF omeprazole 40 mg capsule,delayed release(DR/EC) 40 mg PO BID Qty: 60 0RF Continued hydroxyzine pamoate 50 mg capsule 50 mg PO BEDTIME PRN (Reason: for insomnia) Qty: 90 1RF lamotrigine 150 mg tablet 150 mg PO BEDTIME 0RF clonazepam 1 mg tablet 1 mg PO BEDTIME 0RF acetaminophen 325 mg Tablet 650 mg PO BID PRN (Reason: Pain (Scale Score 1-3)) 0RF sevelamer carbonate 800 mg tablet 1,600 mg PO TIDWM 0RF tamoxifen 20 mg tablet 20 mg PO DAILY@1400 0RF Multaq 400 mg tablet 1 tab PO BID 0RF midodrine 5 mg Tablet 5 mg PO BID Qty: 60 0RF benzonatate 100 mg Capsule 100 mg PO TID Qty: 20 0RF clozapine 100 mg tablet 200 mg PO BEDTIME 0RF melatonin 3 mg Tablet 6 mg PO DAILY PRN (Reason: Insomnia) 0RF levothyroxine 150 mcg tablet 1 tab PO DAILY 0RF albuterol sulfate 90 mcg/actuation Hfa Aerosol Inhaler 2 puff INHALATION Q4-6H PRN (Reason: Wheezing) 0RF Anoro Ellipta 62.5-25 mcg/actuation blister with device 1 puff inhalation DAILY 0RF clozapine 25 mg tablet 2 tab PO BID 0RF Rx Instructions: takes at 1000 and 1800 hydrocortisone 2.5 % cream 1 appl topical BID PRN (Reason: skin irritation) Qty: 20 0RF Held Eliquis 2.5 mg tablet 2.5 mg PO BID 0RF Hold Instructions: Resume on 12/12/21. Discontinued olanzapine 5 mg tablet 1 tab PO BEDTIME 0RF Discharge Orders: Discharge Order (Routine); Ordered 12/10/21 Ordered By: Matthew Adorno Diet: advance to usual diet Activity on Discharge: As tolerated Stand Alone Forms: Patient Portal Discharge page Care Plan Goals: Read below Health Concerns: Read below Plan of Treatment: Read below Assessment: you were admitted to the hospital from psychiatry unit for generalized seizures. evaluated by neurologist and treated with Dilantin with good response as no recurrence of the seizure noted while inpatient. You developed gastrointestinal bleeding with drop of your blood level requiring transfusion of 7 units of blood with significant improvement as your blood level stable around 9. Evaluated by data analyst report writer who did endoscopy showing inflammation of your esophagus and stomach. Olanzapine increased to 5 mg twice Daily Start omeprazole twice Daily Continue Dilantin 3 times a day Hold Eliquis for the next 2 days to do dialysis as scheduled To follow-up with psychiatry team as outpatient.
--- NOTE | 2021-12-10 12:23 | MHC.CM.PN ---
PATIENT IS DISCHARGED HOME TODAY WITH RESUMPTION OF HER COMFORT [facility]. RN AWARE OF PLAN. IMM 12/09 IN CHART
[2021-12-10] MEDS: Tamoxifen Citrate 10 MG TABLET 20 MG PO (13:02)
[2021-12-11 16:12] LABS: Haptoglobin 98 mg/dL (43-212)
== END 2021-12-10 14:11 | disposition home health service (06) | DRG 682 ==
LOC: HO.ED 22:03 → HO.EDOVER 22:26 → HO.S3 12-01 07:37
PROVIDERS: Clinical Nurse Specialist Psychiatric/Mental Health, Adult; Internal Medicine; Internal Medicine Gastroenterology; Internal Medicine Nephrology; Physician Assistant; Admitting Provider Hospitalist; Emergency Provider Emergency Medicine; PCP Internal Medicine; Visit Provider Student in an Organized Health Care Education/Training Program
PROC: 0DJ08ZZ Inspection of Upper Intestinal Tract, Via Natural or Artificial Opening Endoscopic (ICD-10-PCS; CPT 43235; principal; 2021-12-08 12:00)
DX: N18.6 End stage renal disease (principal); K20.91 Esophagitis, unspecified with bleeding; K29.81 Duodenitis with bleeding; K31.811 Angiodysplasia of stomach and duodenum with bleeding; E87.1 Hypo-osmolality and hyponatremia; D62 Acute posthemorrhagic anemia; D63.1 Anemia in chronic kidney disease; C50.919 Malignant neoplasm of unspecified site of unspecified female breast; E03.9 Hypothyroidism, unspecified; E78.5 Hyperlipidemia, unspecified; I48.0 Paroxysmal atrial fibrillation; I95.1 Orthostatic hypotension; G40.909 Epilepsy, unspecified, not intractable, without status epilepticus; Z20.822 Contact with and (suspected) exposure to COVID-19; Z92.3 Personal history of irradiation; Z99.2 Dependence on renal dialysis; Z91.15 Patient's noncompliance with renal dialysis; Z86.16 Personal history of COVID-19; Z87.891 Personal history of nicotine dependence; Z85.51 Personal history of malignant neoplasm of bladder; Z88.1 Allergy status to other antibiotic agents; Z88.5 Allergy status to narcotic agent; Z88.6 Allergy status to analgesic agent; Z88.8 Allergy status to other drugs, medicaments and biological substances; Z87.440 Personal history of urinary (tract) infections; Z79.810 Long term (current) use of selective estrogen receptor modulators (SERMs); Z79.890 Hormone replacement therapy; Z79.899 Other long term (current) drug therapy
CPT/HCPCS: 36415; 70450; 80048; 80053; 80076; 80159; 82077; 82247; 82272; 83010; 83540; 83605; 83615; 83735; 85014; 85018; 85025; 85027; 86850; 86900; 86901; 86923; 87635; 90999; 93005; 95816; 99285; J0171; J0885; J1100; J1953; J2060; J2370; J2405; P9016; P9017; Q0163